=== PATIENT | female | born 1950 | race Caucasian/White ===

== ENCOUNTER 2016-10-05 14:30 | Inpatient (IN) | payer MEDICARE, BC ==
[2016-10-05] MEDS ORDERED: NITROGLYCERIN OINT 1 INCH/GM PACKET TOPICAL STA (14:37)
--- NOTE | 2016-10-05 14:40 | ED ---
General Adult HPI - General Stated complaint: chest pain Time Seen by Provider: 10/05/16 14:30 Source: RN notes reviewed - History of Present Illness Initial comments: This is a 66-year-old female who presents to the emergency department from [facility]. According to because he also patient showed ST segment depression and then later on after given nitroglycerin showed ST segment elevation. Patient states she had chest pain earlier that radiates Into her arm and her neck and she was also short of breath at that time. Patient states she was given nitroglycerin the pain is completely resolved and at this time feels back to her baseline. Patient denies any palpitations. Patient denies any recent fever chills or cough. Patient denies any abdominal pain patient denies nausea vomiting diarrhea. Patient denies headache patient denies numbness weakness. Patient denies any lightheadedness dizziness or near syncopal episode. - Related Data Home Medications Medication Instructions Recorded Confirmed Aspirin 81 mg PO HS 02/14/16 07/16/16 Ibuprofen/Diphenhydramine HCl 2 cap PO HS PRN 02/14/16 07/16/16 [Advil Pm Liqui-Gels] Levothyroxine Sodium [Synthroid] 50 mcg PO HS 02/14/16 07/16/16 Losartan-Hctz 50-12.5 mg [Hyzaar 1 tab PO HS 02/14/16 07/16/16 50-12.5] Metoprolol Succinate [Toprol XL] 50 mg PO HS 02/14/16 07/16/16 Omeprazole 20 mg PO HS 02/14/16 07/16/16 Allergies Allergy/AdvReac Type Severity Reaction Status Date / Time No Known Allergies Allergy Verified 07/16/16 13:59 Review of Systems ROS Statement: Those systems with pertinent positive or pertinent negative responses have been documented in the HPI. ROS Other: All systems not noted in ROS Statement are negative. Past Medical History Past Medical History: GERD/Reflux, Hypertension, Thyroid Disorder Additional Past Medical History / Comment(s): Breast cancer status post bilateral mastectomy and radiation. BRCA gene positive History of Any Multi-Drug Resistant Organisms: None Reported Past Surgical History: Appendectomy, Cholecystectomy, Hysterectomy Additional Past Surgical History / Comment(s): Bone marrow transplant 1994, lanie mstectomy Past Psychological History: No Psychological Hx Reported Smoking Status: Never smoker Past Alcohol Use History: None Reported Past Drug Use History: None Reported - Past Family History Mother Family Medical History: Diabetes Mellitus Father Family Medical History: Cancer Additional Family Medical History / Comment(s): lung cancer Sister(s) Family Medical History: Cancer Additional Family Medical History / Comment(s): breast cancer General Exam - General Exam Comments Initial Comments: GENERAL: Patient is well-developed and well-nourished. Patient is nontoxic and well- hydrated and is in no acute distress. ENT: Neck is soft and supple. No significant lymphadenopathy is noted. Oropharynx is clear. Moist mucous membranes. Neck has full range of motion without eliciting any pain. EYES: The sclera were anicteric and conjunctiva were pink and moist. Extraocular movements were intact and pupils were equal round and reactive to light. Eyelids were unremarkable. PULMONARY: Unlabored respirations. Good breath sounds bilaterally. No audible rales rhonchi or wheezing was noted. CARDIOVASCULAR: There is a regular rate and rhythm without any murmurs gallops or rubs. ABDOMEN: Soft and nontender with normal bowel sounds. No palpable organomegaly was noted. There is no palpable pulsatile mass. SKIN: Skin is clear with no lesions or rashes and otherwise unremarkable. NEUROLOGIC: Patient is alert and oriented x3. Cranial nerves II through XII are grossly intact. Motor and sensory are also intact. Normal speech, volume and content. Symmetrical smile. MUSCULOSKELETAL: Normal extremities with adequate strength and full range of motion. LYMPHATICS: No significant lymphadenopathy is noted PSYCHIATRIC: Normal psychiatric evaluation. Course Vital Signs 10/05/16 10/05/16 10/05/16 14:35 15:16 15:57 Temperature 97.9 F Pulse Rate 106 H 105 H 107 H Respiratory 18 18 18 Rate Blood Pressure 129/64 119/68 141/89 O2 Sat by Pulse 96 98 97 Oximetry 10/05/16 10/05/16 16:13 16:22 Temperature Pulse Rate 109 H 109 H Respiratory Rate Blood Pressure O2 Sat by Pulse Oximetry Medical Decision Making - Medical Decision Making EKG shows sinus tachycardia at 104 bpm ND interval 106 QRS 146 QT interval 400 QTC is 526 patient's EKG shows a left bundle branch block compared this EKG to an old EKG and I see no acute abnormalities. I review the old chest x-ray was normal. I spoke to Dr. Squires when the patient arrived and he can consult the patient in the emergency department. Second troponin came back elevated compared to the first I spoke with Dr. Squires about this at this time he was satisfied to keep the patient on heparin and admitting the patient to the floor and following troponins. I spoke with Dr. Oates he agreed to admit the patient admitted the patient I consult cardiology I continued the heparin and nitro paste on the floor. - Lab Data Result diagrams: 10/05/16 15:39 10/05/16 15:39 Lab Results 10/05/16 10/05/16 10/05/16 Range/Units 15:39 15:39 15:39 WBC 10.9 H (3.8-10.6) k/uL RBC 4.31 (3.80-5.40) m/uL Hgb 13.1 (11.4-16.0) gm/dL Hct 40.3 (34.0-46.0) % MCV 93.7 (80.0-100.0) fL MCH 30.5 (25.0-35.0) pg MCHC 32.5 (31.0-37.0) g/dL RDW 13.8 (11.5-15.5) % Plt Count 207 (150-450) k/uL Neutrophils % 88 % Lymphocytes % 6 % Monocytes % 5 % Eosinophils % 0 % Basophils % 0 % Neutrophils # 9.7 H (1.3-7.7) k/uL Lymphocytes # 0.6 L (1.0-4.8) k/uL Monocytes # 0.5 (0-1.0) k/uL Eosinophils # 0.0 (0-0.7) k/uL Basophils # 0.0 (0-0.2) k/uL PT 11.2 (9.0-12.0) sec INR 1.1 (<1.1) APTT 49.5 H (22.0-30.0) sec Sodium 145 (137-145) mmol/L Potassium 3.6 (3.5-5.1) mmol/L Chloride 103 (98-107) mmol/L Carbon Dioxide 28 (22-30) mmol/L Anion Gap 14 mmol/L BUN 15 (7-17) mg/dL Creatinine 0.96 (0.52-1.04) mg/dL Est GFR (MDRD) Af Amer >60 (>60 ml/min/1.73 sqM) Est GFR (MDRD) Non-Af 58 (>60 ml/min/1.73 sqM) Glucose 130 H (74-99) mg/dL Calcium 9.3 (8.4-10.2) mg/dL Magnesium 1.8 (1.6-2.3) mg/dL Total Bilirubin 0.8 (0.2-1.3) mg/dL AST 30 (14-36) U/L ALT 40 (9-52) U/L Alkaline Phosphatase 74 (38-126) U/L Total Creatine Kinase (30-135) U/L CK-MB (CK-2) (0.0-2.4) ng/mL CK-MB (CK-2) Rel Index Troponin I (0.000-0.034) ng/mL Total Protein 6.7 (6.3-8.2) g/dL Albumin 3.8 (3.5-5.0) g/dL 10/05/16 Range/Units 15:39 WBC (3.8-10.6) k/uL RBC (3.80-5.40) m/uL Hgb (11.4-16.0) gm/dL Hct (34.0-46.0) % MCV (80.0-100.0) fL MCH (25.0-35.0) pg MCHC (31.0-37.0) g/dL RDW (11.5-15.5) % Plt Count (150-450) k/uL Neutrophils % % Lymphocytes % % Monocytes % % Eosinophils % % Basophils % % Neutrophils # (1.3-7.7) k/uL Lymphocytes # (1.0-4.8) k/uL Monocytes # (0-1.0) k/uL Eosinophils # (0-0.7) k/uL Basophils # (0-0.2) k/uL PT (9.0-12.0) sec INR (<1.1) APTT (22.0-30.0) sec Sodium (137-145) mmol/L Potassium (3.5-5.1) mmol/L Chloride (98-107) mmol/L Carbon Dioxide (22-30) mmol/L Anion Gap mmol/L BUN (7-17) mg/dL Creatinine (0.52-1.04) mg/dL Est GFR (MDRD) Af Amer (>60 ml/min/1.73 sqM) Est GFR (MDRD) Non-Af (>60 ml/min/1.73 sqM) Glucose (74-99) mg/dL Calcium (8.4-10.2) mg/dL Magnesium (1.6-2.3) mg/dL Total Bilirubin (0.2-1.3) mg/dL AST (14-36) U/L ALT (9-52) U/L Alkaline Phosphatase (38-126) U/L Total Creatine Kinase 89 (30-135) U/L CK-MB (CK-2) 5.8 H* (0.0-2.4) ng/mL CK-MB (CK-2) Rel Index 6.5 Troponin I 0.445 H* (0.000-0.034) ng/mL Total Protein (6.3-8.2) g/dL Albumin (3.5-5.0) g/dL Critical Care Time Critical Care Time: Yes Total Critical Care Time: 35 Disposition Clinical Impression: Acute non-ST segment elevation myocardial infarction (STEMI) following previous myocardial infarction Disposition: ADMITTED IP TO THIS HOSP Referrals: Tamika Arechiga MD [Primary Care Provider] - 1-2 days Time of Disposition: 16:44
[2016-10-05 15:53] LABS: Basophils % (A) 0 %; CHCM 33.2; Eosinophils % (A) 0 %; HCT 40.3 % (34.0-46.0); HGB 13.1 gm/dL (11.4-16.0); Luc # (Auto) 0.07; Luc % (Auto) 1; Lymphocytes # (A) 0.6 k/uL (1.0-4.8); Lymphocytes % (A) 6 %; MCH 30.5 pg (25.0-35.0); MCHC 32.5 g/dL (31.0-37.0); MCV 93.7 fL (80.0-100.0); Mean Platelet Volume 7.9; Monocytes # (A) 0.5 k/uL (0-1.0); Monocytes % (A) 5 %; Neutrophils # (A) 9.7 k/uL (1.3-7.7); Neutrophils % (A) 88 %; RBC 4.31 m/uL (3.80-5.40); RDW 13.8 % (11.5-15.5); WBC 10.9 k/uL (3.8-10.6); WBC (Perox) 11.85
[2016-10-05 15:58] LABS: INR 1.1 (<1.1); Partial Thromboplastin Time 49.5 sec (22.0-30.0); Prothrombin Time 11.2 sec (9.0-12.0)
[2016-10-05] MEDS ORDERED: ALBUTEROL NEBULIZED 2.5 MG/3 ML INHALATION STA (15:58)
[2016-10-05 16:06] LABS: AST 30 U/L (14-36); Blood Urea Nitrogen 15 mg/dL (7-17); Carbon Dioxide 28 mmol/L (22-30); Chloride 103 mmol/L (98-107); Glucose 130 mg/dL (74-99); Non-African American GFR(MDRD) 58 (>60 ml/min/1.73 sqM); Total Bilirubin 0.8 mg/dL (0.2-1.3); Total Protein 6.7 g/dL (6.3-8.2)
--- NOTE | 2016-10-05 16:06 | P.CRDCN ---
History of Present Illness Consult date: 10/05/16 History of present illness: This is a 66-year-old female with history of hypertension and GERD syndrome who went to [facility] with complaints of left shoulder and arm pain. Patient also has history of breast cancer status post bilateral mastectomy and also radiation therapy. Her EKG in the emergency room showed evidence of left bundle-branch block pattern. The pain was sharp and radiated to the neck. Patient could not get comfortable by moving the shoulder or the neck. Patient was treated with sublingual nitroglycerin with relief of pain. By the time she came to [facility] the pains are mostly resolved. Her EKG continues to show left bundle branch block pattern. At this point we have decided to continue the maximum medical therapy and follow Cardec enzymes studies and get an echo [place] tomorrow. Patient had a cardiac catheterization the past which did not reveal any significant obstructive disease. Further comminution depend upon the clinical course. Review of Systems REVIEW OF SYSTEMS: CONSTITUTIONAL:. Patient is doing well. No complaints of fever or chills EYES: Denies diplopia, blurring of vision EARS, NOSE, MOUTH, THROAT: Denies headaches, denies sore throat. CARDIOVASCULAR: As per the chart RESPIRATORY: Denies shortness of breath, denies cough. GASTROINTESTINAL: History of GERD syndrome GENITOURINARY: Denies hematuria, denies infections. MUSKULOSKELETAL: Denies pain, denies swelling. Denies any cramps or claudication INTEGUMENTARY: Denies rash, denies eczema. NEUROLOGICAL: Denies focal weakness, or visual disturbance. Denies any dizziness or syncope PSYCHIATRIC: Denies anxiety, denies depression. HEMATOLOGIC/LYMPHATIC: Denies any bleeding, denies enlarged lymph nodes. Past Medical History Past Medical History: GERD/Reflux, Hypertension, Thyroid Disorder Additional Past Medical History / Comment(s): Breast cancer status post bilateral mastectomy and radiation. BRCA gene positive History of Any Multi-Drug Resistant Organisms: None Reported Past Surgical History: Appendectomy, Cholecystectomy, Hysterectomy Additional Past Surgical History / Comment(s): Bone marrow transplant 1994, lanie mstectomy Past Psychological History: No Psychological Hx Reported Smoking Status: Never smoker Past Alcohol Use History: None Reported Past Drug Use History: None Reported - Past Family History Mother Family Medical History: Diabetes Mellitus Father Family Medical History: Cancer Additional Family Medical History / Comment(s): lung cancer Sister(s) Family Medical History: Cancer Additional Family Medical History / Comment(s): breast cancer Medications and Allergies Home Medications Medication Instructions Recorded Confirmed Type Aspirin 81 mg PO HS 02/14/16 07/16/16 History Ibuprofen/Diphenhydramine HCl 2 cap PO HS PRN 02/14/16 07/16/16 History [Advil Pm Liqui-Gels] Levothyroxine Sodium [Synthroid] 50 mcg PO HS 02/14/16 07/16/16 History Losartan-Hctz 50-12.5 mg [Hyzaar 1 tab PO HS 02/14/16 07/16/16 History 50-12.5] Metoprolol Succinate [Toprol XL] 50 mg PO HS 02/14/16 07/16/16 History Omeprazole 20 mg PO HS 02/14/16 07/16/16 History Allergies Allergy/AdvReac Type Severity Reaction Status Date / Time No Known Allergies Allergy Verified 07/16/16 13:59 Physical Exam Vitals: Vital Signs Temp Pulse Resp BP Pulse Ox 10/05/16 15:16 105 H 18 119/68 98 10/05/16 14:35 97.9 F 106 H 18 129/64 96 Intake and Output 10/05/16 10/05/16 10/05/16 06:59 14:59 22:59 Other: Weight 77.111 kg Patient Weight 10/06/16 06:59 Weight 77.111 kg GENERAL EXAM: Patient is alert and oriented and doesn't appear to be in any acute distress HEENT: Normocephalic. Normal reaction of pupils, equal size, normal range of extraocular motion. No erythema or exudates in the throat. NECK: No masses, no nuchal rigidity. CHEST: No chest wall deformity. LUNGS: Equal air entry with no crackles or wheeze. HEART: S1 and S2 normal with no audible mumurs or gallops. Regular rhythm, femorals equal on both sides.. ABDOMEN: No hepatosplenomegaly, normal bowel sounds, no guarding or rigidity. SKIN: No rashes CENTRAL NERVOUS SYSTEM: No focal deficits. EXTREMITIES: No cyanosis, clubbing or edema. Results 10/05/16 15:39 Coagulation 10/05/16 Range/Units 15:39 PT 11.2 (9.0-12.0) sec APTT 49.5 H (22.0-30.0) sec CBC 10/05/16 Range/Units 15:39 WBC 10.9 H (3.8-10.6) k/uL RBC 4.31 (3.80-5.40) m/uL Hgb 13.1 (11.4-16.0) gm/dL Hct 40.3 (34.0-46.0) % Plt Count 207 (150-450) k/uL Intake and Output 10/05/16 10/05/16 10/05/16 06:59 14:59 22:59 Other: Weight 77.111 kg Patient Weight 10/06/16 06:59 Weight 77.111 kg 10/05/16 15:39 EKG Interpretations (text) Showed sinus rhythm with a left bundle-branch block Assessment and Plan (1) Chest pain Status: Acute (2) Left bundle branch block Status: Acute (3) History of breast cancer Status: Acute (4) GERD (gastroesophageal reflux disease) Status: Acute (5) Hypertension Status: Acute Plan: At the time of my examination patient is completely pain free. Her EKG shows left bundle branch block. We'll continue to monitor cardiac enzymes. We'll obtain echo cardiogram tomorrow. Further recommend addition depend upon the clinical course.
[2016-10-05 16:20] LABS: ALT 40 U/L (9-52); Alkaline Phosphatase 74 U/L (38-126); Anion Gap 14 mmol/L; Calcium 9.3 mg/dL (8.4-10.2); Magnesium 1.8 mg/dL (1.6-2.3); Potassium 3.6 mmol/L (3.5-5.1); Sodium 145 mmol/L (137-145)
[2016-10-05 16:23] LABS: Creatine Kinase MB 5.8 ng/mL (0.0-2.4); Troponin I 0.445 ng/mL (0.000-0.034)
[2016-10-05] MEDS ORDERED: NITROGLYCERIN SL TABS 0.4 MG TAB SUBLINGUAL PRN (16:45)
[2016-10-05] MEDS ORDERED: HEPARIN SODIUM,PORCINE/D5W PMX 25,000 UNIT in DEXTROSE/WATER 1 500ML.BAG IV SCH (17:00)
[2016-10-05 21:38] LABS: Creatine Kinase MB 25.9 ng/mL (0.0-2.4)
[2016-10-05 21:39] LABS: Troponin I 1.57 ng/mL (0.000-0.034)
[2016-10-06] MEDS ORDERED: SYMBICORT 160-4.5 MCG INHALER INHALATION PRN (00:52)
[2016-10-06] MEDS: LOSARTAN-HCTZ 50-12.5 MG 1 EACH TAB PO SCH ×2 (01:56→22:03)
[2016-10-06] MEDS: PANTOPRAZOLE 40 MG TABLET PO SCH ×2 (01:56→22:03)
[2016-10-06] MEDS: METOPROLOL SUCCINATE (ER) 50 MG TAB.ER.24H PO SCH ×2 (01:56→22:03)
[2016-10-06] MEDS: LEVOTHYROXINE 50 MCG TAB PO SCH ×2 (01:57→22:03)
[2016-10-06 04:51] LABS: Cholesterol 183 mg/dL (<200); HDL Cholesterol 45 mg/dL (40-60); Triglycerides 112 mg/dL (<150)
[2016-10-06 05:50] LABS: Creatine Kinase MB 31.6 ng/mL (0.0-2.4); Troponin I 4.26 ng/mL (0.000-0.034)
[2016-10-06] MEDS ORDERED: NITROGLYCERIN SL TABS 0.4 MG TAB SUBLINGUAL PRN (07:12)
[2016-10-06] MEDS ORDERED: ATORVASTATIN 80 MG TAB PO STA (07:12)
[2016-10-06] MEDS ORDERED: ALPRAZolam 0.25 MG TAB PO PRN (07:12)
[2016-10-06] MEDS ORDERED: SODIUM CHLORIDE 0.9% 1,000 ML in EMPTY BAG 1 BAG IV ONE (07:12)
[2016-10-06] MEDS ORDERED: ALPRAZolam 0.5 MG TAB PO PRN (07:12)
--- NOTE | 2016-10-06 08:05 | ECHOF ---
Referral Reason:Chest pain and cardiomyopathy MEASUREMENTS -------- HEIGHT: 162.6 cm WEIGHT: 77.1 kg BP: 136/79 RVIDd: 2.6 cm (< 3.3) IVSd: 1.0 cm (0.6 - 1.1) LVIDd: 4.8 cm (3.9 - 5.3) LVPWd: 1.0 cm (0.6 - 1.1) IVSs: 1.2 cm LVIDs: 4.3 cm LVPWs: 1.4 cm LA Diam: 3.7 cm (2.7 - 3.8) LAESV Index (A-L): 26.97 ml/m Ao Diam: 3.0 cm (2.0 - 3.7) AV Cusp: 1.5 cm (1.5 - 2.6) MV EXCURSION: 17.007 mm (> 18.000) MV EF SLOPE: 100 mm/s (70 - 150) EPSS: 1.9 cm MV E Blaine: 1.44 m/s MV DecT: 125 ms MV A Blaine: 0.29 m/s MV E/A Ratio: 4.97 AV maxP.02 mmHg AV maxP.02 mmHg AV meanP.67 mmHg RAP: 5.00 mmHg RVSP: 44.77 mmHg FINDINGS -------- This was a technically good study. The left ventricular size is normal. Left ventricular wall thickness is normal. Overall left ventricular systolic function is severely impaired with, an EF < 20%. SEVERE lv DYSFUNCTION, WITH MILDLY CONTRACTILE BASAL AKINS, REST SEVERELY HYPO/AKINETIC The right ventricle is normal in size and function. The left atrium is normal in size. Normal LA size by volume 22+/-6 ml/m2. The right atrium is normal in size. There is mild aortic valve sclerosis. There is mild aortic regurgitation. There is mild aortic stenosis present. Peak/mean gradient across the Aortic Valve is 21.02mmHg / 11.67mmHg. The mitral valve leaflets are mildly thickened. Mild mitral annular calcification present. Mild mitral regurgitation is present. Mild tricuspid regurgitation present. There is mild pulmonary hypertension. The right ventricular systolic pressure, as measured by Doppler, is 44.77mmHg. Trace/mild (physiologic) pulmonic regurgitation. The aortic root size is normal. There is no pericardial effusion. CONCLUSIONS -------- 1. This was a technically good study. 2. There is mild aortic stenosis present. 3. Peak/mean gradient across the Aortic Valve is 21.02mmHg / 11.67mmHg. 4. The mitral valve leaflets are mildly thickened. 5. Mild mitral annular calcification present. 6. Mild mitral regurgitation is present. 7. Mild tricuspid regurgitation present. 8. There is mild pulmonary hypertension. 9. The right ventricular systolic pressure, as measured by Doppler, is 44.77mmHg. 10. Trace/mild (physiologic) pulmonic regurgitation. 11. The aortic root size is normal. 12. The left ventricular size is normal. 13. There is no pericardial effusion. 14. Left ventricular wall thickness is normal. 15. Overall left ventricular systolic function is severely impaired with, an EF < 20%. 16. The right ventricle is normal in size and function. 17. Normal LA size by volume 22+/-6 ml/m2. 18. The right atrium is normal in size. 19. There is mild aortic valve sclerosis. 20. There is mild aortic regurgitation. [employer]OUNDR[employer] WORKER APPRENTICE: Janiya Crawford RDCS
[2016-10-06] MEDS: ASPIRIN 325 MG TAB PO SCH (08:22)
[2016-10-06] MEDS: SYMBICORT 160-4.5 MCG INHALER INHALATION SCH ×2 (08:49→21:52)
[2016-10-06] MEDS ORDERED: IV FLUID CONTINUATION 1,000 ML IV ONE (13:28)
[2016-10-06] MEDS ORDERED: fentaNYL (PF) 50 MCG/ML 2 ML AMP ONE (13:33)
[2016-10-06] MEDS ORDERED: LIDOCAINE 2% INJ 20 MG/ML (20 ML MDV) ONE ×2 (13:33→13:48)
[2016-10-06] MEDS ORDERED: diphenhydrAMINE 50 MG/ML 1 ML VIAL ONE (13:33)
[2016-10-06] MEDS ORDERED: LIDOCAINE 2% INJ 20 MG/ML SQ ONE (14:04)
[2016-10-06] MEDS ORDERED: diphenhydrAMINE 50 MG/ML 1 ML VIAL IVP ONE (14:06)
[2016-10-06] MEDS ORDERED: fentaNYL (PF) 50 MCG/ML 2 ML AMP IV ONE (14:06)
--- NOTE | 2016-10-06 14:18 | HP ---
DATE OF ADMISSION: 10/05/2016 CHIEF COMPLAINT: Chest pain. HISTORY OF PRESENT ILLNESS: This 66-year-old woman with a past medical history of multiple medical problems, including history of asthma, GERD, hypertension, history of hypothyroidism, breast cancer, appendectomy, cholecystectomy, being followed by Dr. Arechiga in the outpatient setting was sent from [facility]. The patient had a chest pain in the anterior part of the chest, which radiated to the arm and neck and the patient also had shortness of breath at that time. The EKG showed ST-T changes. Left bundle branch block was also noted in the EKG done from [facility]. The subsequent EKG also showed a left bundle branch block pattern and the patient was transferred to [facility] through the emergency room and admitted for further evaluation and treatment. There is no history of fever, rigors. No history of headache, loss of consciousness, seizures. Troponin was found to be 0.445 and 1.5 subsequently indicating acute non-ST segment elevation myocardial infarction. PAST MEDICAL HISTORY: History of asthma, gastroesophageal reflux disease, hypertension, hypothyroidism, history of breast cancer, appendectomy, cholecystectomy. MEDICATIONS PRIOR TO ADMISSION: 1. Prednisone daily. 2. Omeprazole 20 mg q.h.s. 3. Metoprolol XL 50 mg q.h.s. 4. Losartan 1 tablet p.o. q.h.s. 5. Synthroid 50 mcg p.o. daily. 7. Symbicort 160/4.5, 2 puffs b.i.d. 8. Ecotrin 81 mg daily. ALLERGIES: None. FAMILY HISTORY: History of diabetes mellitus and heart valve replacements. SOCIAL HISTORY: No history of smoking. No history of alcohol intake. REVIEW OF SYSTEMS: ENT: No diminished hearing or diminished vision. CARDIOVASCULAR: As mentioned earlier. RESPIRATORY: As mentioned earlier. GI: As mentioned earlier. : No dysuria. NERVOUS SYSTEM: No numbness or weakness. ALLERGY/IMMUNOLOGY: No asthma. MUSCULOSKELETAL: As mentioned earlier. HEMATOLOGY/ONCOLOGY: No history of anemia. ENDOCRINE: No history of diabetes. CONSTITUTIONAL: As mentioned earlier. DERMATOLOGY: Negative. RHEUMATOLOGY: Negative. PSYCHIATRY: As mentioned earlier. PHYSICAL EXAMINATION: Alert and oriented x3. Pulse is 113, blood pressure 125/77, respirations 18, temperature 97 degrees, pulse ox 94% on room air. HEENT: Conjunctivae normal. NECK: No jugular venous distention. CARDIOVASCULAR: S1 and S2, muffled. RESPIRATORY: Breath sounds diminished at the bases. No rhonchi, no crackles. ABDOMEN: Soft, obese, nontender, no mass palpable. LEGS: No edema, no swelling. NERVOUS SYSTEM: Higher function as mentioned. Moves all four limbs. No focal motor deficits. LYMPHATIC: No lymphadenopathy in the neck, axillae or groin. SKIN: No ulcer, rash or bleeding. LABS: WBC 10.9 and glucose 130. ASSESSMENT: 1. Chest pain, possible acute non-ST elevation myocardial infarction. 2. Troponin 1.57. 3. Left bundle branch block in the EKG. 4. Increased random blood sugar. 5. Increased WBC, possibly reactive. 6. Asthma. 7. Gastroesophageal reflux disease. 8. Hypertension. 9. Hypothyroidism. 10. History of breast cancer. 11. History of right lung nodule. 12. History of cholecystectomy. 13. History of bone marrow transplant 1994. RECOMMENDATIONS AND DISCUSSION: In this 66-year-old woman who presented with multiple complex medical issues, will monitor the patient closely. Continue the current medications and symptomatic treatment. Otherwise will closely monitor the patient along with Cardiology and unstable angina protocol. Beta blockers and antiplatelet agents, possible cardiac catheterization. Guarded prognosis because of multiple complex medical issues. Further recommendations to follow. A copy of dictation forwarded to Dr. Arechiga who is the primary physician. HEATHER
[2016-10-06] MEDS ORDERED: IOHEXOL 350 MG/ML 100 ML BOTTLE INTRATHECA ONE (14:21)
[2016-10-06] MEDS ORDERED: FUROSEMIDE 10 MG/ML 4 ML VIAL ONE (14:23)
[2016-10-06] MEDS ORDERED: FUROSEMIDE 10 MG/ML 4 ML VIAL IV ONE (14:27)
[2016-10-06] MEDS ORDERED: RX INFO: IV CONTRAST WAS GIVEN 1 EACH MISC MISCELLANE PRN (14:32)
[2016-10-06] MEDS ORDERED: HEPARIN SODIUM,PORCINE 5,000 UNIT/ML 1 ML VIAL IV PRN (14:36)
[2016-10-06] MEDS ORDERED: SODIUM CHLORIDE 0.9% 1,000 ML IV SCH (14:45)
--- NOTE | 2016-10-06 15:37 | P.CNPUL ---
History of Present Illness Consult date: 10/06/16 Requesting physician: Lito Oates Reason for consult: dyspnea Chief complaint: Chest pain History of present illness: This is a very pleasant 66-year-old female patient who follows with Dr. Arechiga as her primary care physician. She has a history of metastatic breast cancer, status post bilateral mastectomy/radiation and previous stem cell transplant. She also has a history of gastroesophageal reflux disease, chronic cough related to radiation pneumonitis, history of BRCA gene positive, bilateral oophorectomy, history of lymphoma. She also had a small left upper lobe nodule in the status post wedge resection. She is a lifelong nonsmoker. He presented here on 10/05/2016 as a transfer from [facility] for myocardial infarction. She'd undergone cardiac catheterization today and is found to have severe coronary artery disease and the plan is for coronary artery bypass grafting. She is a severely impaired left ventricular systolic function with estimated ejection fraction less than 20%. She is seen in consultation today postprocedure resting fairly comfortably in bed. She denies any further chest discomfort. She remains on heparin drip. She denies any palpitations lightheadedness or dizziness. No shortness of breath, cough or congestion. Review of Systems 14 point review of system was conducted. All been negative other than as mentioned in HPI. Past Medical History Past Medical History: Asthma, GERD/Reflux, Hypertension, Thyroid Disorder Additional Past Medical History / Comment(s): Breast cancer status post bilateral mastectomy and radiation, rt lung nodule(cancerous/was removed). BRCA gene positive History of Any Multi-Drug Resistant Organisms: None Reported Past Surgical History: Appendectomy, Cholecystectomy, Hysterectomy Additional Past Surgical History / Comment(s): Bone marrow transplant 1994, lanie mstectomy/radiation. 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 Smoking Status: Never smoker Past Alcohol Use History: None Reported Past Drug Use History: None Reported - Past Family History Mother Family Medical History: Diabetes Mellitus Additional Family Medical History / Comment(s): heart valve replacment Father Family Medical History: Cancer Additional Family Medical History / Comment(s): lung cancer Sister(s) Family Medical History: Cancer Additional Family Medical History / Comment(s): breast cancer Medications and Allergies Home Medications Medication Instructions Recorded Confirmed Type Ibuprofen/Diphenhydramine HCl 1 cap PO HS 02/14/16 10/05/16 History [Advil Pm Liqui-Gels] Levothyroxine Sodium [Synthroid] 50 mcg PO HS 02/14/16 10/05/16 History Losartan-Hctz 50-12.5 mg [Hyzaar 1 tab PO HS 02/14/16 10/05/16 History 50-12.5] Metoprolol Succinate [Toprol XL] 50 mg PO HS 02/14/16 10/05/16 History Omeprazole 20 mg PO HS 02/14/16 10/05/16 History Aspirin EC [Ecotrin Low Dose] 81 mg PO HS 10/05/16 10/05/16 History Budesonide/Formoterol Fumarate 2 puff INHALATION RT-BID PRN 10/05/16 10/05/16 History [Symbicort 160-4.5 Mcg Inhaler] predniSONE See Taper PO DAILY 10/05/16 10/05/16 History Allergies Allergy/AdvReac Type Severity Reaction Status Date / Time No Known Allergies Allergy Verified 10/05/16 17:19 Physical Exam Vitals: Vital Signs Temp Pulse Pulse Resp BP BP Pulse Ox 10/06/16 15:03 20 93/52 10/06/16 14:48 97.5 F L 20 100/57 93 L 10/06/16 11:13 100 18 109/55 100 10/06/16 08:00 97.1 F L 108 H 18 120/70 95 10/06/16 07:12 97.1 F L 108 H 18 120/70 95 10/06/16 04:00 97.7 F 96 18 102/60 94 L 10/06/16 00:15 97.3 F L 98 18 108/55 96 10/05/16 20:50 97.7 F 103 H 18 106/57 92 L 10/05/16 18:10 97.0 F L 113 H 18 125/77 95 10/05/16 18:01 95 10/05/16 17:36 97.5 F L 107 H 18 146/67 98 10/05/16 16:48 107 H 18 137/61 95 Intake and Output 10/06/16 10/06/16 10/06/16 06:59 14:59 22:59 Intake Total 0 250.367 Output Total 200 200 Balance -200 50.367 Intake: Intake, IV Titration 250.367 Amount Heparin Sodium,Porcine/ 250.367 D5w Pmx 25,000 unit In Dextrose/Water 1 500ml. bag @ 12 UNITS/KG/HR 18.5 mls/hr IV .Q24H [facility] Rx#: [id number] Oral 0 Output: Urine 200 200 Other: Voiding Method Toilet Weight 79 kg GENERAL EXAM: Alert, comfortable in no apparent distress. HEAD: Normocephalic. EYES: Normal reaction of pupils, equal size. NOSE: Clear with pink turbinates. THROAT: No erythema or exudates. NECK: No masses, no JVD. CHEST: No chest wall deformity. LUNGS: Equal air entry with no crackles, wheeze, rhonchi or dullness. CVS: S1 and S2 normal with no audible murmurs, regular rhythm. ABDOMEN: No hepatosplenomegaly, normal bowel sounds, no guarding or rigidity. SPINE: No scoliosis or deformity SKIN: No rashes CENTRAL NERVOUS SYSTEM: No focal deficits, tone is normal in all 4 extremities. Extremities: There is trace peripheral edema. No clubbing, no cyanosis. Peripheral pulses are intact. Results - Laboratory Findings CBC and BMP: 10/05/16 15:39 10/05/16 15:39 PT/INR, D-dimer PT 11.2 sec (9.0-12.0) 10/05/16 15:39 INR 1.1 (<1.1) 10/05/16 15:39 Abnormal lab findings: Abnormal Labs 10/05/16 10/06/16 10/06/16 20:27 04:10 04:10 APTT Total Creatine Kinase 245 H 309 H CK-MB (CK-2) 25.9 H* 31.6 H* Troponin I 1.570 H* 4.260 H* LDL Cholesterol, Calc 116 H 10/06/16 04:19 APTT 31.4 H Total Creatine Kinase CK-MB (CK-2) Troponin I LDL Cholesterol, Calc Assessment and Plan Plan: Impression: #1 Chest pain in a patient found to have significant coronary artery disease on cardiac catheterization performed today. The plan is for coronary artery bypass grafting. #2 Severe ischemic cardiomyopathy with estimated ejection fraction less than 20% . #3 Left bundle branch block pattern on EKG. #4 History of breast cancer status post bilateral mastectomy/radiation, BRCA gene positive. #5 Chronic cough secondary to radiation pneumonitis. #6 Stem cell transplant in 1994. #7 Hypothyroidism. #8 Hypertension. #9 Gastroesophageal reflux disease. Plan: The patient was seen and evaluated by Dr. Arechiga. We will optimize her medications and educate her regarding the use of the incentive spirometer and cough and deep breathing exercises. We will perform a bedside spirometry to evaluate her present lung function. Continue to follow her in the postoperative setting. Time with Patient: Greater than 30
[2016-10-06 15:38] LABS: Basophils # (A) 0.1 k/uL (0-0.2); Basophils % (A) 1 %; CH 31.2; Eosinophils # (A) 0.1 k/uL (0-0.7); Eosinophils % (A) 1 %; HCT 37.9 % (34.0-46.0); HDW 2.97; HGB 12.2 gm/dL (11.4-16.0); Luc # (Auto) 0.15; Luc % (Auto) 2; Lymphocytes # (A) 1.1 k/uL (1.0-4.8); Lymphocytes % (A) 13 %; MCH 30.6 pg (25.0-35.0); MCHC 32.3 g/dL (31.0-37.0); MCV 94.9 fL (80.0-100.0); Mean Platelet Volume 7.7; Monocytes # (A) 0.7 k/uL (0-1.0); Monocytes % (A) 8 %; Neutrophils # (A) 6.3 k/uL (1.3-7.7); Neutrophils % (A) 75 %; RBC 3.99 m/uL (3.80-5.40); RDW 13.8 % (11.5-15.5); WBC 8.4 k/uL (3.8-10.6); WBC (Perox) 8.76
[2016-10-06 15:51] LABS: INR 1.1 (<1.1); Partial Thromboplastin Time 22.4 sec (22.0-30.0); Prothrombin Time 10.9 sec (9.0-12.0)
[2016-10-06] MEDS: SPIRONOLACTONE 25 MG TAB PO SCH (16:15)
[2016-10-06] MEDS: FUROSEMIDE 20 MG TAB PO SCH (16:15)
[2016-10-06] MEDS: HEPARIN SODIUM,PORCINE/D5W PMX 25,000 UNIT in DEXTROSE/WATER 1 500ML.BAG IV SCH (16:52)
[2016-10-06] MEDS: NITROGLYCERIN OINT 1 INCH/GM PACKET TOPICAL SCH (16:53)
[2016-10-06 18:29] LABS: Basophils % (A) 0 %; CH 30.3; CHCM 32.5; Eosinophils # (A) 0.1 k/uL (0-0.7); Eosinophils % (A) 1 %; HDW 3.01; HGB 12.8 gm/dL (11.4-16.0); Luc # (Auto) 0.18; Luc % (Auto) 2; Lymphocytes # (A) 1.4 k/uL (1.0-4.8); Lymphocytes % (A) 14 %; MCH 30.7 pg (25.0-35.0); MCHC 32.8 g/dL (31.0-37.0); MCV 93.6 fL (80.0-100.0); Mean Platelet Volume 7.4; Monocytes # (A) 0.7 k/uL (0-1.0); Monocytes % (A) 7 %; Neutrophils # (A) 7.5 k/uL (1.3-7.7); Neutrophils % (A) 76 %; RBC 4.17 m/uL (3.80-5.40); RDW 13.8 % (11.5-15.5); WBC 9.9 k/uL (3.8-10.6); WBC (Perox) 9.76
[2016-10-06 18:37] LABS: ALT 47 U/L (9-52); AST 90 U/L (14-36); Alkaline Phosphatase 61 U/L (38-126); Anion Gap 12 mmol/L; Blood Urea Nitrogen 15 mg/dL (7-17); Carbon Dioxide 31 mmol/L (22-30); Chloride 99 mmol/L (98-107); Glucose 126 mg/dL (74-99); Magnesium 1.6 mg/dL (1.6-2.3); Non-African American GFR(MDRD) 59 (>60 ml/min/1.73 sqM); Potassium 3.3 mmol/L (3.5-5.1); Sodium 142 mmol/L (137-145); Total Protein 6.6 g/dL (6.3-8.2)
[2016-10-06] MEDS ORDERED: MD COMMUNICATION TO PHARMACY 1 EACH MISC PO ONE ×2 (18:47)
--- NOTE | 2016-10-06 19:05 | P.GSCN ---
History of Present Illness Consult date: 10/06/16 History of present illness: The patient is a 66-year-old female with history of multiple medical problems include bilateral mastectomy status post radiation therapy to the chest, who presented to an outside hospital with left neck and left upper extremity pain. She was transferred to [facility] yesterday. Her troponin trended up so a cardiac catheterization was performed which revealed a tight proximal LAD stenosis. I was asked to evaluate her for coronary bypass surgery. At the time of my examination, the patient was pain free and resting comfortably in bed. Review of Systems All systems: negative - Respiratory Reports cough Past Medical History Past Medical History: Asthma, GERD/Reflux, Hypertension, Thyroid Disorder Additional Past Medical History / Comment(s): Breast cancer status post bilateral mastectomy and radiation, rt lung nodule(cancerous/was removed). BRCA gene positive History of Any Multi-Drug Resistant Organisms: None Reported Past Surgical History: Appendectomy, Cholecystectomy, Hysterectomy Additional Past Surgical History / Comment(s): Bone marrow transplant 1994, lanie mstectomy/radiation. 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 Smoking Status: Never smoker Past Alcohol Use History: None Reported Past Drug Use History: None Reported - Past Family History Mother Family Medical History: Diabetes Mellitus Additional Family Medical History / Comment(s): heart valve replacment Father Family Medical History: Cancer Additional Family Medical History / Comment(s): lung cancer Sister(s) Family Medical History: Cancer Additional Family Medical History / Comment(s): breast cancer Medications and Allergies Home Medications Medication Instructions Recorded Confirmed Type Ibuprofen/Diphenhydramine HCl 1 cap PO HS 02/14/16 10/05/16 History [Advil Pm Liqui-Gels] Levothyroxine Sodium [Synthroid] 50 mcg PO HS 02/14/16 10/05/16 History Losartan-Hctz 50-12.5 mg [Hyzaar 1 tab PO HS 02/14/16 10/05/16 History 50-12.5] Metoprolol Succinate [Toprol XL] 50 mg PO HS 02/14/16 10/05/16 History Omeprazole 20 mg PO HS 02/14/16 10/05/16 History Aspirin EC [Ecotrin Low Dose] 81 mg PO HS 10/05/16 10/05/16 History Budesonide/Formoterol Fumarate 2 puff INHALATION RT-BID PRN 10/05/16 10/05/16 History [Symbicort 160-4.5 Mcg Inhaler] predniSONE See Taper PO DAILY 10/05/16 10/05/16 History Allergies Allergy/AdvReac Type Severity Reaction Status Date / Time No Known Allergies Allergy Verified 10/05/16 17:19 Surgical - Exam Vital Signs Temp Pulse Resp BP Pulse Ox 97.9 F 106 H 18 129/64 96 10/05/16 14:35 10/05/16 14:35 10/05/16 14:35 10/05/16 14:35 10/05/16 14:35 - General well developed, no distress - Eyes PERRL - Respiratory clear to auscultation - Cardiovascular Rhythm: regular - Abdomen Abdomen: soft, non tender - Neurologic normal coordination, normal sensation - Musculoskeletal normal gait - Psychiatric oriented to time, oriented to person, oriented to place Results - Labs 10/06/16 18:03 10/06/16 18:03 Abnormal Lab Results - Last 24 Hours (Table) 10/05/16 10/06/16 10/06/16 Range/Units 20:27 04:10 04:10 APTT (22.0-30.0) sec Potassium (3.5-5.1) mmol/L Carbon Dioxide (22-30) mmol/L Glucose (74-99) mg/dL AST (14-36) U/L Total Creatine Kinase 245 H 309 H (30-135) U/L CK-MB (CK-2) 25.9 H* 31.6 H* (0.0-2.4) ng/mL Troponin I 1.570 H* 4.260 H* (0.000-0.034) ng/mL LDL Cholesterol, Calc 116 H (0-99) mg/dL 10/06/16 10/06/16 Range/Units 04:19 18:03 APTT 31.4 H (22.0-30.0) sec Potassium 3.3 L (3.5-5.1) mmol/L Carbon Dioxide 31 H (22-30) mmol/L Glucose 126 H (74-99) mg/dL AST 90 H (14-36) U/L Total Creatine Kinase (30-135) U/L CK-MB (CK-2) (0.0-2.4) ng/mL Troponin I (0.000-0.034) ng/mL LDL Cholesterol, Calc (0-99) mg/dL Diabetes panel 10/06/16 10/06/16 Range/Units 04:10 18:03 Sodium 142 (137-145) mmol/L Potassium 3.3 L (3.5-5.1) mmol/L Chloride 99 (98-107) mmol/L Carbon Dioxide 31 H (22-30) mmol/L BUN 15 (7-17) mg/dL Creatinine 0.95 (0.52-1.04) mg/dL Glucose 126 H (74-99) mg/dL Calcium 9.0 (8.4-10.2) mg/dL AST 90 H (14-36) U/L ALT 47 (9-52) U/L Alkaline Phosphatase 61 (38-126) U/L Total Protein 6.6 (6.3-8.2) g/dL Albumin 3.7 (3.5-5.0) g/dL Triglycerides 112 (<150) mg/dL HDL Cholesterol 45 (40-60) mg/dL Calcium panel 10/06/16 Range/Units 18:03 Calcium 9.0 (8.4-10.2) mg/dL Albumin 3.7 (3.5-5.0) g/dL Pituitary panel 10/06/16 Range/Units 18:03 Sodium 142 (137-145) mmol/L Potassium 3.3 L (3.5-5.1) mmol/L Chloride 99 (98-107) mmol/L Carbon Dioxide 31 H (22-30) mmol/L BUN 15 (7-17) mg/dL Creatinine 0.95 (0.52-1.04) mg/dL Glucose 126 H (74-99) mg/dL Calcium 9.0 (8.4-10.2) mg/dL Adrenal panel 10/06/16 Range/Units 18:03 Sodium 142 (137-145) mmol/L Potassium 3.3 L (3.5-5.1) mmol/L Chloride 99 (98-107) mmol/L Carbon Dioxide 31 H (22-30) mmol/L BUN 15 (7-17) mg/dL Creatinine 0.95 (0.52-1.04) mg/dL Glucose 126 H (74-99) mg/dL Calcium 9.0 (8.4-10.2) mg/dL Total Bilirubin 1.0 (0.2-1.3) mg/dL AST 90 H (14-36) U/L ALT 47 (9-52) U/L Alkaline Phosphatase 61 (38-126) U/L Total Protein 6.6 (6.3-8.2) g/dL Albumin 3.7 (3.5-5.0) g/dL Assessment and Plan (1) Acute non-ST segment elevation myocardial infarction (STEMI) following previous myocardial infarction Status: Acute Plan: The patient's cardiac catheterization was personally reviewed. He has a tight ostial left anterior descending artery lesion. The remainder of her coronary tree is free of obstructive disease. Her transthoracic echocardiogram reveals a depressed ejection fraction of less than 20%. A coronary artery bypass is recommended. The risks, benefits, and alternatives to this procedure were discussed with the patient. All questions were answered. She is currently receiving her preoperative workup. We will plan on performing this procedure first thing in the morning. Time with Patient: Greater than 30
[2016-10-06 19:07] LABS: Hepatitis B Surface Ag Index 0.05
[2016-10-06 19:12] LABS: Hepatitis B Core IgM Index 0.03
[2016-10-06 19:24] LABS: Hepatitis C Virus IgG Index 0.03
[2016-10-06 19:36] LABS: Hepatitis C Virus IgG Ab Negative (Negative)
--- NOTE | 2016-10-06 20:40 | US ---
EXAMINATION TYPE: US carotid duplex BILAT DATE OF EXAM: 10/06/2016 8:15 PM COMPARISON: NONE CLINICAL HISTORY: US . Pre CABG EXAM MEASUREMENTS: RIGHT: Peak Systolic Velocity (PSV) cm/sec ----- Right CCA: 100.0 ----- Right ICA: 121.0 ----- Right ECA: 85.3 ICA/CCA ratio: 1.2 RIGHT: End Diastole cm/sec ----- Right CCA: 22.5 ----- Right ICA: 53.1 ----- Right ECA: 85.3 LEFT: Peak Systolic Velocity (PSV) cm/sec ----- Left CCA: 80.1 ----- Left ICA: 91.8 ----- Left ECA: 153.1 ICA/CCA ratio: 1.1 LEFT: End Diastole cm/sec ----- Left CCA: 21.9 ----- Left ICA: 21.9 ----- Left ECA: 16.0 VERTEBRALS (direction of flow): Right Vertebral: Antegrade Left Vertebral: Antegrade TECHNOLOGIST IMPRESSION: No significant ICA stenosis bilaterally. Moderate plaque mid CCA bilaterally, bulb bilaterally and L eft ECA. IMPRESSION: There is antegrade flow in the vertebral arteries. The images and measurements suggest 3 0-40% stenosis in both internal carotid arteries. Criteria for Assigning % of Stenosis / Diameter reduction (Estimation based on the indirect measurements of the internal carotid artery velocities (ICA PSV). 1. Normal (no stenosis)=ICA PSV < 125 cm/s: ratio < 2.0: ICA EDV<40 cm/s. 2. Less than 50% stenosis=ICA PSV < 125 cm/s: ratio < 2.0: ICA EDV<40 cm/s. 3. 50 to 69% stenosis=ICA PSV of 125 to 230 cm/s: ration 2.0 ? 4.0: ICA EDV 40-100 cm/s. 4. Greater than 70% stenosis to near occlusion= ICA PSV > 230 cm/s: ratio > 4.0: ICA EDV > 100 cm/s. 5. Near occlusion= ICA PSV velocities may be low or undetectable: variable ratio and ICA EDV. 6. Total occlusion=unable to detect flow.
[2016-10-06] MEDS: MUPIROCIN 2% OINT 22 GM TUBE NASAL SCH (22:13)
[2016-10-07 00:55] LABS: Appearance,Urine Clear (Clear); Bilirubin,Urine Negative (Negative); Glucose,Urine (UA) Negative (Negative); Ketones,Urine Negative (Negative); Leukocyte Esterase,Urine Negative (Negative); Nitrite,Urine Negative (Negative); Protein,Urine Negative (Negative); Specific Gravity,Urine 1.014 (1.001-1.035); UA Billing (MACRO vs. MICRO) CHEM; Urobilinogen,Urine <2.0 mg/dL (<2.0)
[2016-10-07] MEDS: HEPARIN SODIUM,PORCINE/D5W PMX 25,000 UNIT in DEXTROSE/WATER 1 500ML.BAG IV SCH (02:24)
[2016-10-07] MEDS ORDERED: HEPARIN SODIUM,PORCINE 5,000 UNIT/ML 1 ML VIAL IV PRN (02:28)
[2016-10-07] MEDS ORDERED: ATORVASTATIN 10 MG TAB PO ONE (05:00)
[2016-10-07] MEDS ORDERED: METOPROLOL TARTRATE 12.5 MG TAB PO ONE (05:00)
[2016-10-07] MEDS ORDERED: ASPIRIN 325 MG TAB PO ONE (05:00)
[2016-10-07 06:07] LABS: Glucose,Whole Blood 112 mg/dL (75-99)
[2016-10-07 07:43] LABS: Basophils % (A) 0 %; CH 30.3; CHCM 32.6; Eosinophils # (A) 0.1 k/uL (0-0.7); Eosinophils % (A) 1 %; HDW 3.04; HGB 12.7 gm/dL (11.4-16.0); Luc # (Auto) 0.24; Luc % (Auto) 2; Lymphocytes # (A) 1.4 k/uL (1.0-4.8); Lymphocytes % (A) 13 %; MCH 30.3 pg (25.0-35.0); MCHC 32.5 g/dL (31.0-37.0); MCV 93.4 fL (80.0-100.0); Mean Platelet Volume 8.1; Monocytes # (A) 0.9 k/uL (0-1.0); Monocytes % (A) 8 %; Neutrophils # (A) 7.6 k/uL (1.3-7.7); Neutrophils % (A) 74 %; RBC 4.18 m/uL (3.80-5.40); RDW 13.9 % (11.5-15.5); WBC 10.2 k/uL (3.8-10.6); WBC (Perox) 11.03
[2016-10-07 07:54] LABS: Potassium 3.7 mmol/L (3.5-5.1); Total Bilirubin 1.2 mg/dL (0.2-1.3); Total Protein 6.8 g/dL (6.3-8.2)
[2016-10-07] MEDS ORDERED: ceFAZolin 1,000 MG in SODIUM CHLORIDE 0.9% IRRIGATIO 1,000 ML IRRIGATION ONE (08:00)
[2016-10-07] MEDS ORDERED: HEPARIN SODIUM,PORCINE 5,000 UNIT in SODIUM CHLORIDE 0.9% 500 ML IV ONE (08:00)
[2016-10-07] MEDS ORDERED: HEPARIN SODIUM 1,000 UNIT/ML VIAL IV ONE (08:00)
[2016-10-07] MEDS ORDERED: PHENYLEPHRINE-0.9% NACL SYG 1 MG/10 ML SYRINGE IV ONE ×4 (08:00)
[2016-10-07] MEDS ORDERED: CALCIUM CHLORIDE 100 MG/ML 10 ML SYRINGE IVP ONE (08:00)
[2016-10-07] MEDS ORDERED: ceFAZolin 2,000 MG in SODIUM CHLORIDE 0.9% 30 ML IVPB ONE (08:00)
[2016-10-07] MEDS ORDERED: MAGNESIUM SULFATE SYG 4.06 MEQ/ML SYRINGE IV ONE (08:00)
[2016-10-07] MEDS ORDERED: PAPAVERINE 360 MG in SODIUM CHLORIDE 0.9% 90 ML IV ONE (08:00)
[2016-10-07] MEDS ORDERED: PROPOFOL 500 MG in EMPTY BAG 1 BAG IV ONE (08:00)
[2016-10-07] MEDS ORDERED: PROTAMINE SULFATE 10 MG/ML 25 ML VIAL IV ONE (08:00)
[2016-10-07] MEDS ORDERED: INSULIN REGULAR 100 UNIT in SODIUM CHLORIDE 0.9% 100 ML IV ONE (08:00)
[2016-10-07] MEDS ORDERED: CLEVIDIPINE BUTYRATE 25 MG in EMPTY BAG 1 BAG IV ONE (08:00)
[2016-10-07] MEDS ORDERED: SODIUM BICARB 8.4% 50 ML SYR (1 MEQ/ML) IV ONE (08:00)
[2016-10-07] MEDS ORDERED: ceFAZolin 2 GM in SODIUM CHLORIDE 0.9% 30 ML IVPB ONE (08:00)
[2016-10-07] MEDS ORDERED: NITROGLYCERIN-D5W PMX 25 MG/250 ML BTL IV ONE (08:00)
[2016-10-07] MEDS ORDERED: ALBUMIN HUMAN 25% 50 ML in EMPTY BAG 1 BAG IVPB ONE (08:00)
[2016-10-07] MEDS ORDERED: NITROGLYCERIN-D5W PMX 50 MG in DEXTROSE/WATER 1 250ML.BAG IV ONE (08:00)
[2016-10-07] MEDS ORDERED: CHLORHEXIDINE GLUCONATE 15 ML CUP MUCOUS MEM ONE (08:00)
[2016-10-07] MEDS ORDERED: NOREPINEPHRINE 4 MG in SODIUM CHLORIDE 0.9% 250 ML IV ONE (08:00)
[2016-10-07] MEDS ORDERED: ALBUMIN HUMAN 5% 500 ML in EMPTY BAG 1 BAG IVPB ONE ×6 (08:00)
[2016-10-07] MEDS ORDERED: PROTAMINE SULFATE 250 MG in EMPTY BAG 1 BAG IV ONE (08:00)
[2016-10-07] MEDS: SYMBICORT 160-4.5 MCG INHALER INHALATION SCH ×2 (08:23→20:12)
[2016-10-07] MEDS ORDERED: PROPOFOL 10 MG/ML 20 ML VIAL IV ONE (08:38)
[2016-10-07] MEDS ORDERED: POTASSIUM CHLORIDE OPEN HEART 20 MEQ/50 ML BAG IVPB ONE (08:38)
[2016-10-07] MEDS ORDERED: fentaNYL (PF) 50 MCG/ML 50 ML VIAL ONE (08:38)
[2016-10-07] MEDS ORDERED: fentaNYL (PF) 50 MCG/ML 2 ML AMP ONE (08:38)
[2016-10-07] MEDS ORDERED: MIDAZOLAM 2 MG/2 ML VIAL ONE (08:38)
[2016-10-07] MEDS ORDERED: HEPARIN SODIUM,PORCINE 5,000 UNIT/ML 1 ML VIAL ONE (08:38)
[2016-10-07] MEDS ORDERED: VECURONIUM 10 MG VIAL IV ONE (08:38)
[2016-10-07] MEDS ORDERED: SUCCINYLCHOLINE CHLORIDE 100 MG/5 ML SYR IV ONE (08:38)
[2016-10-07] MEDS ORDERED: PHENYLEPHRINE-0.9% NACL SYG 1 MG/10 ML SYRINGE ONE (08:38)
[2016-10-07] MEDS ORDERED: ALBUMIN HUMAN 5% 250 ML BOTTLE IVPB ONE (08:38)
[2016-10-07] MEDS ORDERED: PROTAMINE SULFATE 10 MG/ML 5 ML VIAL IV ONE (08:38)
[2016-10-07] MEDS ORDERED: SODIUM CHLORIDE 0.9% IRRIG 1,000 ML BTL IRRIGATION ONE (08:38)
[2016-10-07] MEDS ORDERED: ATORVASTATIN 40 MG TAB PO SCH (09:00)
[2016-10-07 09:21] LABS: Glucose,Whole Blood 99 mg/dL (75-99)
--- NOTE | 2016-10-07 11:30 | PN ---
DATE OF SERVICE: 10/06/2016 This 66 -year-old woman was admitted with chest pain, possible acute non-ST elevation myocardial infarction, had three vessel coronary artery disease in the cardiac catheterization. The patient also had ejection fraction was about 20% indicating cardiomyopathy. Also patient is being closely monitored. Cardiology and pulmonology saw the patient. The patient by Dr. Arechiga in the outpatient setting. Coronary artery bypass grafting consultation has been recommended. PAST MEDICAL HISTORY: Reviewed. REVIEW OF SYSTEMS: CARDIOVASCULAR: As mentioned earlier. RESPIRATORY: As mentioned earlier. GASTROINTESTINAL: No nausea or vomiting. GENITOURINARY: No dysuria. CENTRAL NERVOUS SYSTEM: No numbness or weakness. Current medications are reviewed and include: 1. Xanax 0.5 q.6h p.r.n. 2. Aspirin 320 mg daily. 3. Lipitor 40 mg daily. 4. Symbicort 160/4.5 2 puffs b.i.d. 5. Lasix 20 mg b.i.d. 7. Heparin IV. 8. Synthroid 50 mcg p.o. daily. 9. Toprol XL 50 mg daily. 11. Nitrostat. 12. Nitro-Bid. 13. Protonix. 14. Aldactone. PHYSICAL EXAMINATION: The patient is alert and oriented times three. Pulse 98. Blood pressure ntd, respiratory rate 20, temperature normal. Pulse ox 97% on 2 L. HEENT: Conjunctivae normal. Oral mucosa moist. NECK: No jugular venous distention. No carotid bruit. No lymph node enlargement. CARDIOVASCULAR SYSTEM: S1, S2 muffled. No S3, no S4. RESPIRATORY: Breath sounds diminished at the bases. No rhonchi, no crackles. ABDOMEN: Soft, nontender. No mass palpable. No hepatosplenomegaly. No ascites. Legs: No edema. No swelling. Nervous system: Higher functions as mentioned. Moves all four limbs. No focal deficits. LYMPHATICS: No lymph nodes palpable in the neck, axillae or groin. SKIN: No ulcer, rash or bleeding. LABS: WBC 10.9, glucose 130, troponin ntd, LDL 116. ASSESSMENT: 1. Chest pain, acute non-ST elevation myocardial infarction, status post cardiac catheterization and as well as three-vessel coronary artery disease. 2. Congestive heart failure with chronic systolic dysfunction, ejection fraction less than 20% with possible ischemic cardiomyopathy 3. Mild valvular abnormalities including mild aortic stenosis, mitral calcification, mitral regurgitation on the 2-D echo. 4. Left bundle branch block on the EKG. 5. Troponin elevated up to 4.260. 6. Hyperlipidemia. 7. Increased random blood sugar. 8. Increased WBC, possibly reactive. 9. Asthma history. 10. History of gastroesophageal reflux disease. 11. Hypertension. 12. Hypothyroidism. 13. History of breast cancer. 14. History of right lung nodule. 15. History of cholecystectomy. 16. History of bone marrow transplant in 1994. 17. FULL CODE. RECOMMENDATIONS AND DISCUSSION: In this 66 -year-old woman who presented with multiple complex medical issues coronary artery disease, at this time, continue the current medications, continue with symptomatic treatment, continue antiplatelet agents and beta blockers. Continue with bronchodilators. Continue the home medications. Closely follow with cardiology and pulmonology. Otherwise cardiothoracic surgical evaluation. Prognosis guarded because of multiple complex medical issues. Further recommendations to follow. MTDD
[2016-10-07 11:46] LABS: Glucose,Whole Blood 94 mg/dL (75-99)
[2016-10-07 12:00] LABS: Hemoglobin A1C 5.3 % (4.2-6.1)
--- NOTE | 2016-10-07 12:26 | CC ---
DATE OF SERVICE: 10/06/2016 Ms. Kim is a 66-year-old female who presented to the emergency room at [facility] with symptoms of chest discomfort. She has an underlying left bundle branch block, but her troponin were minimally elevated. She was transferred to [facility] and she had a troponin up to 4.2. In view of that, recommendation made regarding cardiac catheterization. The procedure as well as the risks and complications were discussed with the patient who is in full understanding and agreement. PROCEDURE: Patient was brought to the experimental machining lab manager in a fasting, semi-sedated state, after receiving fentanyl and Benadryl. She was draped and prepped in conventional fashion using Xylocaine anesthesia and Seldinger technique. A 6 [place] sheath was introduced in the right femoral artery. Selective right and left coronary angiography was performed using 6 [place] 4 bend right and left Kayode catheters. Multiple views of the coronary arteries including hemiaxial views were obtained. Following that, a 6 [place] tight pigtail catheter was introduced in the left ventricle and pressures were calculated. Following that, catheter and sheath were removed. Hemostasis was obtained with deployment of an Angio-Seal. There were no immediate complication. Patient is returned to her room in stable condition. FINDINGS: LEFT MAIN: This is a large-size vessel bifurcating into left circumflex and left anterior descending artery. The left main coronary artery has a 20% to 30% plaque distally with some irregularity. LEFT ANTERIOR DESCENDING ARTERY: This vessel has a 99% stenosis at the take-off from the left main, with evidence to suggest an unstable plaque. It gives rise to a diagonal branch of moderate caliber. The left anterior descending artery beyond the plaque proximally has no evidence of high-grade stenosis. LEFT CIRCUMFLEX: This is a nondominant vessel, large in caliber, giving rise to a large obtuse marginal branch proximally. The left circumflex as well as its branches has no evidence of obstructive coronary artery disease. RIGHT CORONARY ARTERY: This vessel is dominant, large in caliber, bifurcating into PDA and posterolateral segment and branches. The proximal segment of the right coronary artery has a plaque of about 40%. The rest of the vessel has no high-grade stenosis. LEFT VENTRICULOGRAM: Left ventriculogram was not performed. HEMODYNAMICS: There was no gradient across the aortic valve. The left ventricle end-diastolic pressure was 30 mmHg. CONCLUSION: 1. Critical stenosis involving the ostium of the left anterior descending artery. 2. Mild disease in the right coronary artery. 3. Elevated left ventricular end-diastolic pressure. RECOMMENDATIONS: In view of the anatomy, I have recommended proceeding with evaluation for coronary artery bypass grafting. The rationale behind that, as well as risks and complications, were discussed with the patient. She will be evaluated by the surgical service.
--- NOTE | 2016-10-07 12:29 | LTR ---
October 06, 2016 Tamika Arechiga M.D. RE: Perla Kim Dear Dr. Arechiga: I had the opportunity to perform cardiac catheterization on Mrs. Kim at [facility] on the 06 of October. A full copy of the procedure note will be forwarded to you. In brief, she was found to have critical stenosis at the ostium of the LAD. In view of the location and her known cardiomyopathy, I have recommended proceeding with evaluation for possible coronary artery bypass grafting. I will keep you updated on her progress and thank you again for allowing me to participate in this patient's care. Please feel free to call if there are any questions. Sincerely, RADHA MERCEDES MD
[2016-10-07] MEDS ORDERED: [UNRECOGNIZED DRUG - OTHER] IVPB STA (12:41)
[2016-10-07] MEDS ORDERED: WATER FOR INJECTION IVPB STA (12:41)
[2016-10-07 12:49] LABS: Glucose,Whole Blood 105 mg/dL (75-99)
[2016-10-07 14:08] LABS: Glucose,Whole Blood 114 mg/dL (75-99)
[2016-10-07 14:08] LABS: INR 1.3 (<1.1); Partial Thromboplastin Time 25.6 sec (22.0-30.0)
[2016-10-07 14:23] LABS: Basophils % (A) 0 %; CH 30.3; CHCM 32.9; Eosinophils # (A) 0.1 k/uL (0-0.7); Eosinophils % (A) 1 %; HCT 25.1 % (34.0-46.0); HDW 3.04; Luc # (Auto) 0.17; Luc % (Auto) 2; Lymphocytes # (A) 1.4 k/uL (1.0-4.8); Lymphocytes % (A) 15 %; MCHC 33.5 g/dL (31.0-37.0); MCV 92.4 fL (80.0-100.0); Mean Platelet Volume 7.4; Monocytes # (A) 0.5 k/uL (0-1.0); Monocytes % (A) 6 %; Neutrophils # (A) 6.6 k/uL (1.3-7.7); Neutrophils % (A) 75 %; RBC 2.72 m/uL (3.80-5.40); RDW 13.8 % (11.5-15.5); WBC 8.7 k/uL (3.8-10.6); WBC (Perox) 9.13
[2016-10-07 14:30] LABS: Ionized Calcium 4.4 mg/dL (4.5-5.3)
[2016-10-07] MEDS ORDERED: MILRINONE-D5W PMX 20 MG in DEXTROSE/WATER 1 100ML.BAG IV SCH (14:30)
--- NOTE | 2016-10-07 14:31 | XR ---
EXAMINATION TYPE: XR chest 1V portable DATE OF EXAM: 10/07/2016 2:20 PM COMPARISON: 10/05/2016 HISTORY: Check tube placement TECHNIQUE: Single frontal view of the chest is obtained. FINDINGS: Endotracheal tube is 2 cm from the sandra and could be pulled back 1 to 2 cm. There is no heart failure. There are sternal wires. There is right jugular catheter with tip in the pulmonary art harriett. There is left chest tube in good position. There is no sign of a pneumothorax. IMPRESSION: No heart failure. Endotracheal tube is a little low in the trachea.
[2016-10-07 14:34] LABS: HGB 8.4 gm/dL (11.4-16.0)
[2016-10-07 14:39] LABS: Anion Gap 12 mmol/L; Blood Urea Nitrogen 14 mg/dL (7-17); Calcium 7.6 mg/dL (8.4-10.2); Carbon Dioxide 27 mmol/L (22-30); Chloride 105 mmol/L (98-107); Glucose 100 mg/dL (74-99); Magnesium 1.1 mg/dL (1.6-2.3); Non-African American GFR(MDRD) >60 (>60 ml/min/1.73 sqM); Sodium 144 mmol/L (137-145)
[2016-10-07 14:47] LABS: ABG Base Excess 2.1 mmol/L; ABG HCO3 26 mmol/L (21-25); ABG PCO2 40 mmHg (35-45); ABG PH 7.43 (7.35-7.45); ABG PO2 >400 mmHg (83-108); ABG TCO2 27 mmol/L (19-24)
[2016-10-07] MEDS: NITROGLYCERIN OINT 1 INCH/GM PACKET TOPICAL SCH ×3 (14:49→16:21)
[2016-10-07 14:52] LABS: Basophils % (A) 0 %; CHCM 33.3; Eosinophils # (A) 0.1 k/uL (0-0.7); Eosinophils % (A) 1 %; HCT 25.9 % (34.0-46.0); HDW 3.05; HGB 8.2 gm/dL (11.4-16.0); Luc # (Auto) 0.08; Luc % (Auto) 1; Lymphocytes # (A) 0.7 k/uL (1.0-4.8); Lymphocytes % (A) 9 %; MCH 29.6 pg (25.0-35.0); MCHC 31.6 g/dL (31.0-37.0); MCV 93.7 fL (80.0-100.0); Mean Platelet Volume 8.9; Monocytes # (A) 0.5 k/uL (0-1.0); Monocytes % (A) 6 %; Neutrophils # (A) 7.1 k/uL (1.3-7.7); Neutrophils % (A) 83 %; RBC 2.76 m/uL (3.80-5.40); RDW 14.1 % (11.5-15.5); WBC 8.5 k/uL (3.8-10.6); WBC (Perox) 8.45
[2016-10-07] MEDS: SPIRONOLACTONE 25 MG TAB PO SCH (14:56)
[2016-10-07] MEDS: FUROSEMIDE 20 MG TAB PO SCH ×2 (14:56→16:21)
[2016-10-07] MEDS: MUPIROCIN 2% OINT 22 GM TUBE NASAL SCH ×2 (14:56→21:38)
[2016-10-07 14:59] LABS: Glucose,Whole Blood 108 mg/dL (75-99)
[2016-10-07 15:00] LABS: Anion Gap 10 mmol/L; Blood Urea Nitrogen 13 mg/dL (7-17); Calcium 7.6 mg/dL (8.4-10.2); Carbon Dioxide 29 mmol/L (22-30); Chloride 105 mmol/L (98-107); Glucose 104 mg/dL (74-99); Non-African American GFR(MDRD) >60 (>60 ml/min/1.73 sqM); Potassium 3.4 mmol/L (3.5-5.1); Sodium 144 mmol/L (137-145)
[2016-10-07] MEDS ORDERED: ALBUMIN HUMAN 5% 250 ML in EMPTY BAG 1 BAG IVPB PRN (15:08)
[2016-10-07] MEDS ORDERED: LACTATED RINGERS 250 ML IV PRN (15:08)
[2016-10-07 15:09] LABS: Glucose,Whole Blood 107 mg/dL (75-99)
[2016-10-07] MEDS ORDERED: PROPOFOL 500 MG in EMPTY BAG 1 BAG IV SCH (15:15)
--- NOTE | 2016-10-07 15:56 | P.PN ---
Subjective Principal diagnosis: Acute myocardial infarction, status post emergent CABG. This is a very pleasant 66-year-old female patient who follows with Dr. Arechiga as her primary care physician. She has a history of metastatic breast cancer, status post bilateral mastectomy/radiation and previous stem cell transplant. She also has a history of gastroesophageal reflux disease, chronic cough related to radiation pneumonitis, history of BRCA gene positive, bilateral oophorectomy, history of lymphoma. She also had a small left upper lobe nodule in the status post wedge resection. She is a lifelong nonsmoker. He presented here on 10/05/2016 as a transfer from [facility] for myocardial infarction. She'd undergone cardiac catheterization today and is found to have severe coronary artery disease and the plan is for coronary artery bypass grafting. She is a severely impaired left ventricular systolic function with estimated ejection fraction less than 20%. She is seen in consultation today postprocedure resting fairly comfortably in bed. She denies any further chest discomfort. She remains on heparin drip. She denies any palpitations lightheadedness or dizziness. No shortness of breath, cough or congestion. Patient was reevaluated today on 10/07/2016, she underwent CABG early this morning , and she was sent back to the ICU on mechanical ventilation which is expected, she also has an intra-aortic balloon pump in place. Chest x-ray was reviewed, ABG was reviewed, and ventilator settings were reviewed. Considering her excellent blood gases, and considering the patient is beginning to wake up, I would likely recommend following the protocol for weaning, and we'll likely extubate later this afternoon. Objective - Vital Signs Vital signs: Vital Signs Temp 97.4 F L 10/07/16 05:38 Pulse 101 H 10/07/16 05:38 Resp 16 10/07/16 05:38 BP 89/55 10/07/16 05:38 Pulse Ox 96 10/07/16 05:38 Intake & Output 10/06/16 10/07/16 10/07/16 18:59 06:59 18:59 Intake Total 1270.367 180.752 Output Total 1450 300 600 Balance -179.633 -119.248 -600 Weight 77.7 kg Intake: Intake, IV Titration 1050.367 180.752 Amount Heparin Sodium,Porcine/ 250.367 D5w Pmx 25,000 unit In Dextrose/Water 1 500ml. bag @ 12 UNITS/KG/HR 18.5 mls/hr IV .Q24H [facility] Rx#: [id number] Heparin Sodium,Porcine/ 180.752 D5w Pmx 25,000 unit In Dextrose/Water 1 500ml. bag @ 12 UNITS/KG/HR 18. 96 mls/hr IV .Q24H [facility] Rx #:[id number] Sodium Chloride 0.9% 1, 800 000 ml @ 75 mls/hr IV . [id number] [facility] Rx#:[id number] Oral 220 Output: Urine 1450 300 250 Estimated Blood Loss 350 Other: Voiding Method Toilet # Voids 0 - Exam Physical Exam: Revealed a 66-year-old female on mechanical ventilation, in no distress. HEENT:[Neck is supple.] [No neck masses.] [No thyromegaly.] [No JVD.] Chest: [Clear throughout, no crackles, no rhonchi, no wheezes.] Cardiac Exam: [Normal S1 and S2, no S3 gallop, no murmur.] Positive pericardial rub Abdomen: [Soft, nontender, no megaly, no rebound, no guarding, normal bowel sounds.] Extremities: [No clubbing, no edema, no cyanosis.] Neurological Exam: [Cannot be assessed - Labs CBC & Chem 7: 10/07/16 14:40 10/07/16 14:40 Labs: Abnormal Lab Results - Last 24 Hours (Table) 10/06/16 10/06/16 10/06/16 Range/Units 18:02 18:03 21:00 RBC (3.80-5.40) m/uL Hgb (11.4-16.0) gm/dL Hct (34.0-46.0) % Plt Count (150-450) k/uL Lymphocytes # (1.0-4.8) k/uL PT (9.0-12.0) sec APTT 32.8 H (22.0-30.0) sec ABG pO2 (83-108) mmHg ABG HCO3 (21-25) mmol/L ABG Total CO2 (19-24) mmol/L ABG O2 Saturation (94-97) % Potassium 3.3 L (3.5-5.1) mmol/L Carbon Dioxide 31 H (22-30) mmol/L Creatinine (0.52-1.04) mg/dL Glucose 126 H (74-99) mg/dL POC Glucose (mg/dL) (75-99) mg/dL Calcium (8.4-10.2) mg/dL Ionized Calcium Luis Antonio (4.5-5.3) mg/dL Magnesium (1.6-2.3) mg/dL AST 90 H (14-36) U/L Crossmatch See Detail 10/07/16 10/07/16 10/07/16 Range/Units 05:49 06:27 12:35 RBC (3.80-5.40) m/uL Hgb (11.4-16.0) gm/dL Hct (34.0-46.0) % Plt Count (150-450) k/uL Lymphocytes # (1.0-4.8) k/uL PT (9.0-12.0) sec APTT (22.0-30.0) sec ABG pO2 (83-108) mmHg ABG HCO3 (21-25) mmol/L ABG Total CO2 (19-24) mmol/L ABG O2 Saturation (94-97) % Potassium (3.5-5.1) mmol/L Carbon Dioxide (22-30) mmol/L Creatinine 1.11 H (0.52-1.04) mg/dL Glucose (74-99) mg/dL POC Glucose (mg/dL) 112 H 105 H (75-99) mg/dL Calcium (8.4-10.2) mg/dL Ionized Calcium Luis Antonio (4.5-5.3) mg/dL Magnesium (1.6-2.3) mg/dL AST 79 H (14-36) U/L Crossmatch 10/07/16 10/07/16 10/07/16 Range/Units 13:45 13:45 13:45 RBC 2.72 L (3.80-5.40) m/uL Hgb 8.4 L D (11.4-16.0) gm/dL Hct 25.1 L (34.0-46.0) % Plt Count 122 L (150-450) k/uL Lymphocytes # (1.0-4.8) k/uL PT 13.0 H (9.0-12.0) sec APTT (22.0-30.0) sec ABG pO2 (83-108) mmHg ABG HCO3 (21-25) mmol/L ABG Total CO2 (19-24) mmol/L ABG O2 Saturation (94-97) % Potassium (3.5-5.1) mmol/L Carbon Dioxide (22-30) mmol/L Creatinine (0.52-1.04) mg/dL Glucose 100 H (74-99) mg/dL POC Glucose (mg/dL) (75-99) mg/dL Calcium 7.6 L (8.4-10.2) mg/dL Ionized Calcium Luis Antonio 4.4 L (4.5-5.3) mg/dL Magnesium 1.1 L (1.6-2.3) mg/dL AST (14-36) U/L Crossmatch 10/07/16 10/07/16 10/07/16 Range/Units 13:48 14:35 14:39 RBC (3.80-5.40) m/uL Hgb (11.4-16.0) gm/dL Hct (34.0-46.0) % Plt Count (150-450) k/uL Lymphocytes # (1.0-4.8) k/uL PT (9.0-12.0) sec APTT (22.0-30.0) sec ABG pO2 >400 H (83-108) mmHg ABG HCO3 26 H (21-25) mmol/L ABG Total CO2 27 H (19-24) mmol/L ABG O2 Saturation 100.0 H (94-97) % Potassium (3.5-5.1) mmol/L Carbon Dioxide (22-30) mmol/L Creatinine (0.52-1.04) mg/dL Glucose (74-99) mg/dL POC Glucose (mg/dL) 114 H 108 H (75-99) mg/dL Calcium (8.4-10.2) mg/dL Ionized Calcium Luis Antonio (4.5-5.3) mg/dL Magnesium (1.6-2.3) mg/dL AST (14-36) U/L Crossmatch 10/07/16 10/07/16 10/07/16 Range/Units 14:40 14:40 15:07 RBC 2.76 L (3.80-5.40) m/uL Hgb 8.2 L (11.4-16.0) gm/dL Hct 25.9 L (34.0-46.0) % Plt Count 133 L (150-450) k/uL Lymphocytes # 0.7 L (1.0-4.8) k/uL PT (9.0-12.0) sec APTT (22.0-30.0) sec ABG pO2 (83-108) mmHg ABG HCO3 (21-25) mmol/L ABG Total CO2 (19-24) mmol/L ABG O2 Saturation (94-97) % Potassium 3.4 L (3.5-5.1) mmol/L Carbon Dioxide (22-30) mmol/L Creatinine (0.52-1.04) mg/dL Glucose 104 H (74-99) mg/dL POC Glucose (mg/dL) 107 H (75-99) mg/dL Calcium 7.6 L (8.4-10.2) mg/dL Ionized Calcium Luis Antonio (4.5-5.3) mg/dL Magnesium (1.6-2.3) mg/dL AST (14-36) U/L Crossmatch Microbiology - Last 24 Hours (Table) 10/07/16 00:30 Urine Culture - Preliminary Urine,Voided 10/06/16 17:30 Nasal Screen MRSA/MSSA (ROYCE) - Preliminary Nasal Swab Assessment and Plan Plan: Impression: Status post emergent CABG for severe ostial stenosis of the LAD. Patient is presently on mechanical ventilation as expected. I plan to wean and likely extubate over the next few hours. Patient is also status post intra- aortic balloon pump placement for severe LV dysfunction. #1 Chest pain in a patient found to have significant coronary artery disease on cardiac catheterization performed today. The plan is for coronary artery bypass grafting. #2 Severe ischemic cardiomyopathy with estimated ejection fraction less than 20% . #3 Left bundle branch block pattern on EKG. #4 History of breast cancer status post bilateral mastectomy/radiation, BRCA gene positive. #5 Chronic cough secondary to radiation pneumonitis. #6 Stem cell transplant in 1994. #7 Hypothyroidism. #8 Hypertension. #9 Gastroesophageal reflux disease. Recommendation: Continue mechanical ventilation, follow the protocol, will likely end wean and extubate today. Continue bronchodilators, and GI and DVT prophylaxis
[2016-10-07] MEDS ORDERED: CALCIUM GLUCONATE 1,000 MG in SODIUM CHLORIDE 0.9% 100 ML IVPB ONE (16:00)
[2016-10-07] MEDS ORDERED: POTASSIUM CHLORIDE 20 MEQ in WATER FOR INJECTION 1 100ML.BAG IVPB ONE (16:00)
[2016-10-07] MEDS: MAGNESIUM SULFATE-D5W PMX 1 GM in DEXTROSE/WATER 1 100ML.BAG IVPB SCH ×2 (16:02→17:36)
[2016-10-07] MEDS: ACETAMINOPHEN IV (For NPO) 1,000 MG in EMPTY BAG 1 BAG IVPB SCH ×2 (16:03→23:41)
[2016-10-07 16:09] LABS: Glucose,Whole Blood 112 mg/dL (75-99)
[2016-10-07] MEDS: LACTATED RINGERS 1,000 ML IV SCH (16:22)
[2016-10-07 17:19] LABS: Glucose,Whole Blood 117 mg/dL (75-99)
[2016-10-07] MEDS: ceFAZolin 2 GM in SODIUM CHLORIDE 0.9% 100 ML IVPB SCH (17:34)
--- NOTE | 2016-10-07 17:56 | PN ---
Perla Kim is a 66-year-old female who underwent coronary bypass grafting today. She underwent cardiac catheterization yesterday, was found to have an ostial LAD lesion. She underwent intra-aortic balloon pump placement prophylactic prior to surgical intervention. She is intubated and sedated on low-dose Levophed and on Primacor in addition to the balloon pump. She is in sinus mechanism. Her blood pressure is running in the 100 hundreds. Heart rate in the 90s. LUNGS: Clear anteriorly. HEART: Regular rate rhythm. S1, S2, no S3, no rub. ABDOMEN: Soft. No organomegaly. EXTREMITIES: Ian wrapping in place. Lab data revealed hemoglobin of 8.2. BUN and creatinine 13 and 0.93. IMPRESSION: 1. Status post coronary artery bypass grafting. 2. Cardiomyopathy. 3. Chronic left bundle branch block. RECOMMENDATIONS: From the cardiac standpoint, will continue on the present therapy. I will hope that the intra-aortic balloon pump will be removed tomorrow. I am hoping she will be extubated prior to that.
[2016-10-07 18:09] LABS: Glucose,Whole Blood 141 mg/dL (75-99)
[2016-10-07 18:22] LABS: ABG PH 7.35 (7.35-7.45)
[2016-10-07 18:23] LABS: ABG Base Excess 1.9 mmol/L; ABG HCO3 27 mmol/L (21-25); ABG PCO2 50 mmHg (35-45); ABG PO2 100 mmHg (83-108); ABG TCO2 29 mmol/L (19-24)
[2016-10-07 19:23] LABS: Glucose,Whole Blood 156 mg/dL (75-99)
[2016-10-07] MEDS ORDERED: INSULIN REGULAR 100 UNIT in SODIUM CHLORIDE 0.9% 100 ML IV SCH (20:00)
[2016-10-07 20:41] LABS: Glucose,Whole Blood 143 mg/dL (75-99)
[2016-10-07 21:08] LABS: Glucose,Whole Blood 131 mg/dL (75-99)
[2016-10-07 21:18] LABS: Basophils % (A) 0 %; CH 31.1; CHCM 33.1; Eosinophils % (A) 0 %; HCT 27.3 % (34.0-46.0); HDW 3.01; HGB 8.7 gm/dL (11.4-16.0); Luc # (Auto) 0.06; Luc % (Auto) 1; Lymphocytes # (A) 0.4 k/uL (1.0-4.8); Lymphocytes % (A) 4 %; MCHC 31.8 g/dL (31.0-37.0); MCV 94.3 fL (80.0-100.0); Mean Platelet Volume 8.2; Monocytes # (A) 0.5 k/uL (0-1.0); Monocytes % (A) 5 %; Neutrophils # (A) 9.3 k/uL (1.3-7.7); Neutrophils % (A) 90 %; RBC 2.89 m/uL (3.80-5.40); RDW 13.9 % (11.5-15.5); WBC 10.3 k/uL (3.8-10.6)
[2016-10-07 21:22] LABS: Ionized Calcium 4.8 mg/dL (4.5-5.3)
[2016-10-07 21:33] LABS: ALT 108 U/L (9-52); AST 155 U/L (14-36); Alkaline Phosphatase 73 U/L (38-126); Anion Gap 8 mmol/L; Blood Urea Nitrogen 13 mg/dL (7-17); Calcium 8.1 mg/dL (8.4-10.2); Carbon Dioxide 30 mmol/L (22-30); Chloride 103 mmol/L (98-107); Glucose 132 mg/dL (74-99); Non-African American GFR(MDRD) >60 (>60 ml/min/1.73 sqM); Phosphorous 3.7 mg/dL (2.5-4.5); Potassium 3.8 mmol/L (3.5-5.1); Sodium 141 mmol/L (137-145); Total Bilirubin 1.2 mg/dL (0.2-1.3)
[2016-10-07] MEDS: PANTOPRAZOLE 40 MG TABLET PO SCH (21:37)
[2016-10-07] MEDS: LEVOTHYROXINE 50 MCG TAB PO SCH (21:37)
[2016-10-07 22:07] LABS: Glucose,Whole Blood 119 mg/dL (75-99)
[2016-10-07] MEDS: MILRINONE-D5W PMX 20 MG in DEXTROSE/WATER 1 100ML.BAG IV SCH (22:15)
[2016-10-07] MEDS ORDERED: Potassium Replacement Protocol 1 EACH MISC MISCELLANE PRN (22:30)
[2016-10-07] MEDS ORDERED: Phosphorus Replacement Protoco 1 EACH MISC MISCELLANE PRN (22:30)
[2016-10-07] MEDS ORDERED: Magnesium Replacement Protocol 1 EACH MISC MISCELLANE PRN (22:30)
[2016-10-07] MEDS ORDERED: POTASSIUM CHLORIDE ER 20 MEQ TAB.ER PO SCH (23:00)
[2016-10-07 23:20] LABS: Glucose,Whole Blood 118 mg/dL (75-99)
[2016-10-07] MEDS: LOSARTAN-HCTZ 50-12.5 MG 1 EACH TAB PO SCH (23:30)
[2016-10-07] MEDS: METOPROLOL SUCCINATE (ER) 50 MG TAB.ER.24H PO SCH (23:30)
[2016-10-08] MEDS: ceFAZolin 2 GM in SODIUM CHLORIDE 0.9% 100 ML IVPB SCH (00:05)
[2016-10-08 00:15] LABS: Glucose,Whole Blood 114 mg/dL (75-99)
[2016-10-08] MEDS: NITROGLYCERIN OINT 1 INCH/GM PACKET TOPICAL SCH (00:17)
[2016-10-08 01:08] LABS: Glucose,Whole Blood 112 mg/dL (75-99)
[2016-10-08 02:09] LABS: Glucose,Whole Blood 116 mg/dL (75-99)
[2016-10-08 02:55] LABS: Ionized Calcium 4.7 mg/dL (4.5-5.3)
[2016-10-08 03:00] LABS: Magnesium 1.8 mg/dL (1.6-2.3); Phosphorous 4.1 mg/dL (2.5-4.5); Potassium 3.9 mmol/L (3.5-5.1)
[2016-10-08 03:12] LABS: Glucose,Whole Blood 111 mg/dL (75-99)
[2016-10-08] MEDS: POTASSIUM CHLORIDE 10 MEQ in WATER FOR INJECTION 1 100ML.BAG IVPB SCH ×4 (03:30→19:00)
[2016-10-08] MEDS: MAGNESIUM SULFATE-D5W PMX 1 GM in DEXTROSE/WATER 1 100ML.BAG IVPB SCH ×2 (03:30→04:47)
[2016-10-08 04:06] LABS: Glucose,Whole Blood 106 mg/dL (75-99)
[2016-10-08 05:07] LABS: Glucose,Whole Blood 118 mg/dL (75-99)
[2016-10-08] MEDS: ACETAMINOPHEN IV (For NPO) 1,000 MG in EMPTY BAG 1 BAG IVPB SCH ×3 (05:34→17:57)
[2016-10-08 06:04] LABS: Glucose,Whole Blood 130 mg/dL (75-99)
[2016-10-08 06:56] LABS: Basophils % (A) 0 %; CH 30.6; CHCM 32.8; Eosinophils % (A) 0 %; HCT 27.7 % (34.0-46.0); HGB 8.9 gm/dL (11.4-16.0); Luc # (Auto) 0.11; Luc % (Auto) 1; Lymphocytes # (A) 1.2 k/uL (1.0-4.8); Lymphocytes % (A) 12 %; MCHC 31.9 g/dL (31.0-37.0); MCV 93.8 fL (80.0-100.0); Mean Platelet Volume 8.4; Monocytes # (A) 0.7 k/uL (0-1.0); Monocytes % (A) 7 %; Neutrophils # (A) 8.3 k/uL (1.3-7.7); Neutrophils % (A) 80 %; RBC 2.95 m/uL (3.80-5.40); WBC 10.4 k/uL (3.8-10.6); WBC (Perox) 10.25
[2016-10-08 07:05] LABS: Glucose,Whole Blood 117 mg/dL (75-99)
[2016-10-08 07:07] LABS: INR 1.1 (<1.1); Prothrombin Time 11.3 sec (9.0-12.0)
[2016-10-08 07:33] LABS: Ionized Calcium 4.7 mg/dL (4.5-5.3)
[2016-10-08] MEDS: SYMBICORT 160-4.5 MCG INHALER INHALATION SCH ×2 (07:33→19:57)
[2016-10-08 07:56] LABS: ALT 86 U/L (9-52); AST 136 U/L (14-36); Alkaline Phosphatase 71 U/L (38-126); Anion Gap 8 mmol/L; Blood Urea Nitrogen 11 mg/dL (7-17); Carbon Dioxide 28 mmol/L (22-30); Chloride 102 mmol/L (98-107); Glucose 121 mg/dL (74-99); Magnesium 2.6 mg/dL (1.6-2.3); Non-African American GFR(MDRD) >60 (>60 ml/min/1.73 sqM); Potassium 4.4 mmol/L (3.5-5.1); Sodium 138 mmol/L (137-145); Total Protein 4.9 g/dL (6.3-8.2)
[2016-10-08 07:57] LABS: Glucose,Whole Blood 119 mg/dL (75-99)
[2016-10-08] MEDS ORDERED: ONDANSETRON 4 MG/2 ML VIAL IVP STA (08:00)
[2016-10-08] MEDS ORDERED: ONDANSETRON 4 MG/2 ML VIAL IVP PRN (08:21)
--- NOTE | 2016-10-08 08:30 | XR ---
EXAMINATION TYPE: XR chest 1V portable DATE OF EXAM: 10/08/2016 6:46 AM COMPARISON: Prior chest x-ray first of October 2016 HISTORY: Chest tube, status post extubation, open heart surgery TECHNIQUE: Single frontal view of the chest is obtained. FINDINGS: Endotracheal tube has been removed, left-sided chest tube remains in place. Central venous catheter, aortic balloon, remain in place, lung volumes are low. No sizable pneumothorax or pleural effusion. There are overlying cardiac leads. Mediastinal drains in place. Heart remains enlarged. Ate lectatic changes are thought to persist. IMPRESSION: Status post extubation. Cardiomegaly, rotated expiratory exam.
--- NOTE | 2016-10-08 08:38 | OP ---
DATE OF SERVICE: 10/07/2016 SURGEON: Christopher Gibbons MD SCRAP HANDLER: 1. NYASIA BLACKMAN. 2. TRENT MURRELL PREOPERATIVE DIAGNOSIS: Coronary artery disease. POSTOPERATIVE DIAGNOSIS: Coronary artery disease. OPERATION: 1. Urgent off pump coronary bypass graft x1 with left internal mammary artery to left anterior descending artery. 2. Insertion of intra-aortic balloon pump ANESTHESIA: General anesthesia. ESTIMATED BLOOD LOSS: SPECIMENS REMOVED: None. COMPLICATIONS: None. OPERATIVE FINDINGS: DESCRIPTION OF PROCEDURE: COMPLICATIONS: None. INDICATIONS: The patient is a 66-year-old female with a history of breast cancer, status post bilateral mastectomy with radiation therapy, lymphoma, and the left lung wedge resection who presented to the hospital with left upper extremity pain and left jaw pain. Troponins were found to be positive. Cardiac catheterization was performed which revealed a 99% ostial LAD lesion. An urgent coronary bypass was recommended. The risks, benefits, alternatives to this procedure discussed with patient and her family. All questions answered. Consent was obtained. FINDINGS: Left total mammary artery was a good conduit ( ). The LAD measured 1.5 mm. There were no significant adhesions noted in the mediastinum. The patient's ejection fraction upon arrival to the operating room was approximately 20%. It did improve following bypass. PROCEDURE IN DETAIL: The patient was taken to the operating room, placed supine on the operating table. After induction of general anesthesia an intraaortic balloon bump was placed via the right femoral artery using standard Seldinger technique. A ( ) needle was used to gain access to the right femoral artery. A guidewire was inserted and this location identified using transesophageal echo probe. Using standard Seldinger technique, the intraaortic balloon pump was passed over the guidewire into correct position. It was secured to the skin. Transesophageal echocardiogram did confirm good placement of the balloon distal to the left subclavian artery. The ejection fraction of the heart was approximately 20%. There was mild mitral regurgitation. There was mild aortic insufficiency. A median sternotomy was performed. There were no significant adhesions noted within the mediastinum. The left internal mammary artery was harvested in the standard fashion taking care to clip all branches. Of note, there were some loose adhesions noted between the lung and chest wall, which were taken down bluntly, likely due to her previous left lung wedge resection. Intravenous heparin was administered to achieve an ACT greater than 250. The mammary artery was transected distally revealing brisk flow. The mammary artery was then prepared in the appropriate fashion. A pericardial cradle was created. The heart was then positioned correctly with a moist laps behind and lateral to the heart. The LAD was identified. It appeared to be a good vessel for a good target for bypass. Using a stabilizer, the heart was stabilized though the procedure was performed off pump. A small arteriotomy was created. This was enlarged using scissors. A 1.5 mm flow-through shunt was placed. Using the left internal mammary artery, an end to side anastomosis was created. This was performed ( ) using running 8-0 Prolene suture. The flow through shunt was removed and the suture tied down. The anastomosis was hemostatic. The mammary pedicles intact to the anterior surface of the heart. Protamine was delivered. Hemostasis was assured. The mediastinum was copiously irrigated with warm saline solution. Soft tissue was reapproximated over the ascending aorta. A 32 Belarusian chest tube was placed direct to the left pleural space. Two additional 32 Belarusian chest tubes were placed direct into the mediastinum. Of note, a temporary pacer wires were placed on the left ventricle. Hemostasis was assured. The sternum was then reapproximated using stainless wires in a figure of eight fashion. The remainder of the wound was closed in layers. A sterile dressing was applied. The patient appeared to tolerate the procedure well. She returned to the ICU in critical, but stable condition.
[2016-10-08] MEDS: MUPIROCIN 2% OINT 22 GM TUBE NASAL SCH ×2 (08:40→21:23)
[2016-10-08] MEDS: CLOPIDOGREL 75 MG TAB PO SCH (08:40)
[2016-10-08] MEDS: ASPIRIN 325 MG TAB PO SCH (08:40)
[2016-10-08 09:04] LABS: Glucose,Whole Blood 112 mg/dL (75-99)
--- NOTE | 2016-10-08 09:14 | P.PN ---
<Robert Weiner - Last Filed: 10/08/16 08:52> Progress Note - Text CV Surgery Nursing POD: #1, urgent coronary artery bypass graft 1 utilizing a left internal mammary artery to left anterior descending artery, insertion of intra-aortic balloon pump, transesophageal echocardiogram and epi-aortic ultrasonography. Patient is awake and alert, no distress noted, no specific complaints. Vital Signs: Vital Signs - 24 hr 10/07/16 10/07/16 10/07/16 13:45 14:00 14:15 Pulse Rate 96 88 89 Respiratory 19 16 12 Rate O2 Sat by Pulse 100 100 100 Oximetry 10/07/16 10/07/16 10/07/16 14:30 14:45 15:00 Pulse Rate 88 94 95 Respiratory 12 12 12 Rate O2 Sat by Pulse 100 100 100 Oximetry 10/07/16 10/07/16 10/07/16 15:08 15:15 15:30 Pulse Rate 96 100 Respiratory 12 12 Rate O2 Sat by Pulse 100 100 100 Oximetry 10/07/16 10/07/16 10/07/16 15:45 16:00 16:15 Pulse Rate 100 104 H 99 Respiratory 12 13 12 Rate O2 Sat by Pulse 99 91 L 99 Oximetry 10/07/16 10/07/16 10/07/16 16:30 17:00 17:30 Pulse Rate 102 H 104 H 110 H Respiratory 11 L 14 15 Rate O2 Sat by Pulse 99 99 97 Oximetry 10/07/16 10/07/16 10/07/16 18:00 18:30 19:00 Pulse Rate 103 H 104 H 104 H Respiratory 13 16 19 Rate O2 Sat by Pulse 97 98 89 L Oximetry 10/07/16 10/07/16 10/07/16 19:30 20:00 20:30 Pulse Rate 104 H 105 H 105 H Respiratory 13 12 15 Rate O2 Sat by Pulse 91 L 96 94 L Oximetry 10/07/16 10/07/16 10/07/16 21:00 21:30 22:00 Pulse Rate 108 H 106 H 106 H Respiratory 18 16 16 Rate O2 Sat by Pulse 98 96 97 Oximetry 10/07/16 10/07/16 10/07/16 22:30 23:00 23:30 Pulse Rate 106 H 106 H 107 H Respiratory 16 18 18 Rate O2 Sat by Pulse 98 97 97 Oximetry 01/02/17 01/02/17 01/02/17 00:00 00:30 01:00 Pulse Rate 103 H 109 H 104 H Respiratory 17 23 16 Rate O2 Sat by Pulse 98 99 97 Oximetry 10/08/16 10/08/16 10/08/16 01:30 02:00 02:30 Pulse Rate 104 H 104 H 100 Respiratory 17 23 16 Rate O2 Sat by Pulse 97 99 98 Oximetry 10/08/16 10/08/16 10/08/16 03:00 03:30 04:00 Pulse Rate 101 H 104 H 102 H Respiratory 17 19 17 Rate O2 Sat by Pulse 98 97 99 Oximetry 10/08/16 10/08/16 10/08/16 04:30 05:00 05:30 Pulse Rate 103 H 103 H 103 H Respiratory 17 18 19 Rate O2 Sat by Pulse 97 98 97 Oximetry 10/08/16 10/08/16 10/08/16 06:00 06:30 07:00 Pulse Rate 102 H 101 H 101 H Respiratory 18 17 21 Rate O2 Sat by Pulse 98 100 100 Oximetry 10/08/16 10/08/16 07:30 08:00 Pulse Rate 103 H 99 Respiratory 16 13 Rate O2 Sat by Pulse 100 99 Oximetry ABP, PAP, CO, CI - Last 8 Hours Arterial Blood Pressure 116/53 Arterial Blood Pressure 127/47 Arterial Blood Pressure 127/50 Arterial Blood Pressure 136/46 Arterial Blood Pressure 108/46 Arterial Blood Pressure 103/47 Arterial Blood Pressure 100/40 Arterial Blood Pressure 113/44 Arterial Blood Pressure 113/46 Arterial Blood Pressure 90/40 Arterial Blood Pressure 101/51 Arterial Blood Pressure 87/40 Arterial Blood Pressure 104/46 Arterial Blood Pressure 104/41 Arterial Blood Pressure 103/37 Pulmonary Artery Pressure 44/26 Pulmonary Artery Pressure 49/29 Pulmonary Artery Pressure 46/27 Pulmonary Artery Pressure 42/24 Pulmonary Artery Pressure 41/24 Pulmonary Artery Pressure 41/23 Pulmonary Artery Pressure 38/23 Pulmonary Artery Pressure 41/24 Pulmonary Artery Pressure 42/24 Pulmonary Artery Pressure 39/23 Pulmonary Artery Pressure 40/22 Pulmonary Artery Pressure 38/21 Pulmonary Artery Pressure 42/25 Pulmonary Artery Pressure 40/23 Pulmonary Artery Pressure 38/22 Cardiac Output 4.4 Cardiac Output 4.8 Cardiac Output 4.8 Cardiac Output 5.9 Cardiac Output 5.9 Cardiac Output 5.9 Cardiac Output 5.9 Cardiac Output 5.9 Cardiac Output 5.9 Cardiac Output 5 Cardiac Output 5 Cardiac Output 5 Cardiac Output 5 Cardiac Output 5 Cardiac Output 5 Cardiac Index 2.4 Cardiac Index 2.6 Cardiac Index 3.2 Labs: Short CBC 10/07/16 10/07/16 10/07/16 Range/Units 13:45 14:40 21:05 WBC 8.7 8.5 10.3 (3.8-10.6) k/uL Hgb 8.4 L D 8.2 L 8.7 L (11.4-16.0) gm/dL Hct 25.1 L 25.9 L 27.3 L (34.0-46.0) % Plt Count 122 L 133 L 146 L (150-450) k/uL Neutrophils # 6.6 7.1 9.3 H (1.3-7.7) k/uL 10/08/16 Range/Units 06:30 WBC 10.4 (3.8-10.6) k/uL Hgb 8.9 L (11.4-16.0) gm/dL Hct 27.7 L (34.0-46.0) % Plt Count 149 L (150-450) k/uL Neutrophils # 8.3 H (1.3-7.7) k/uL BMP 10/07/16 10/07/16 10/07/16 13:45 14:40 21:05 Sodium 144 144 141 Potassium 4.0 3.4 L 3.8 Chloride 105 105 103 Carbon Dioxide 27 29 30 BUN 14 13 13 Creatinine 0.89 0.93 0.90 Glucose 100 H 104 H 132 H Calcium 7.6 L 7.6 L 8.1 L 10/08/16 10/08/16 01:55 06:30 Sodium 138 Potassium 3.9 4.4 Chloride 102 Carbon Dioxide 28 BUN 11 Creatinine 0.80 Glucose 121 H Calcium 8.0 L Liver Function 10/07/16 10/08/16 Range/Units 21:05 06:30 Total Bilirubin 1.2 1.0 (0.2-1.3) mg/dL AST 155 H 136 H (14-36) U/L ALT 108 H 86 H (9-52) U/L Alkaline Phosphatase 73 71 (38-126) U/L Albumin 3.3 L 3.0 L (3.5-5.0) g/dL IV Fluids: Primacor drip at 0.2 mcg/kg/m, insulin drip at 0.5 units per hour Cardiac output: 4.4 Cardiac index: 2.4 Pulmonary artery pressures: 51/31 CVP: 20 Lungs: Respirations are even and nonlabored, breath sounds diminished bilaterally, weak cough O2 sat: 99% on 3 L of oxygen delivered via nasal cannula. I/S: Reinforce the importance of regular use of the incentive spirometer. Patient gave return demonstration of proper use of the device and verbalized her understanding of its importance and her intent to make regular use of it. Heart: S1S2, bedside telemetry shows a sinus rhythm, intra-aortic balloon pump in place to right groin at a 1-2 rate with good augmentation Sternum: stable, chest incision clean with silverlon dressing clean and dry. Abdomen: Soft, nontender, Positive bowel sounds present in all 4 quadrants. CBGs: 107-256 U/O: Good via Velazquez catheter to dependent drainage. Chest Tubes: Mediastinal chest tubes without air leak draining 160 mL of serosanguineous fluid over the last 8 hours, 212 mL over the last 12 hours. Left pleural chest tube without air leak drained 84 mL of serosanguineous fluid over the last 8 hours, 122 mL over the last 12 hours. Active Medications Alprazolam (Xanax) 0.25 mg PO Q6HR PRN PRN Reason: Mild Anxiety Last Admin: 10/06/16 08:13 Dose: 0.25 mg Alprazolam (Xanax) 0.5 mg PO Q6HR PRN PRN Reason: Moderate Anxiety Aspirin (Aspirin) 325 mg PO DAILY [facility] Last Admin: 10/08/16 08:40 Dose: 325 mg Atorvastatin Calcium (Lipitor) 40 mg PO DAILY [facility] Bisacodyl (Dulcolax) 10 mg RECTAL DAILY PRN PRN Reason: Constipation Budesonide/Formoterol Fumarate (Symbicort 160-4.5 Mcg Inhaler) 2 puff INHALATION RT-BID [facility] Last Admin: 10/08/16 07:33 Dose: 2 puff Carvedilol (Coreg) 3.125 mg PO BID-W/MEALS [facility] Clopidogrel Bisulfate (Plavix) 75 mg PO DAILY [facility] Last Admin: 10/08/16 08:40 Dose: 75 mg Heparin Sodium (Porcine) (Heparin) 0 unit IV PER PROTOCOL PRN; Protocol PRN Reason: Low PTT Heparin Sodium (Porcine) (Heparin) 0 unit IV PER PROTOCOL PRN; Protocol PRN Reason: Low PTT Heparin Sodium/Dextrose 25,000 (unit/ IV Solution) 500 mls @ 18.96 mls/hr IV .Q24H [facility]; 12 UNITS/KG/HR PRN Reason: Protocol Last Admin: 10/07/16 02:24 Dose: 15 units/kg/hr, 23.7 mls/hr Acetaminophen 1,000 mg/ IV (Solution) 100 mls @ 400 mls/hr IVPB Q6HR [facility] Stop: 10/08/16 18:01 Last Admin: 10/08/16 05:34 Dose: 400 mls/hr Albumin Human 250 ml/ IV (Solution) 250 mls @ 250 mls/hr IVPB Q1HR PRN PRN Reason: For Volume Stop: 10/09/16 15:09 Lactated Ringer's (Lactated Ringers) 250 mls @ 1,000 mls/hr IV .Q15M PRN PRN Reason: For Volume Stop: 10/08/16 15:08 Lactated Ringer's (Lactated Ringers) 1,000 mls @ 50 mls/hr IV .Q20H [facility] Last Admin: 10/07/16 16:22 Dose: 50 mls/hr Propofol 500 mg/ IV Solution 50 mls @ 0 mls/hr IV .Q0M [facility]; Titrate PRN Reason: Protocol Insulin Human Regular 100 unit (/ Sodium Chloride) 101 mls @ 0 mls/hr IV .Q0M [facility]; Per Protocol PRN Reason: Protocol Last Titration: 10/08/16 08:02 Dose: 0.49 units/hr, 0.5 mls/hr Milrinone Lactate/Dextrose 20 (mg/ IV Solution) 100 mls @ 4.66 mls/hr IV .[id number] [facility] PRN Reason: 0.2 MCG/KG/MIN Last Admin: 10/07/16 22:15 Dose: 0.2 mcg/kg/min, 4.66 mls/hr Levothyroxine Sodium (Synthroid) 50 mcg PO HS [facility] Last Admin: 10/07/16 21:37 Dose: 50 mcg Miscellaneous Information (Rx Info: Iv Contrast Was Given) 1 each MISCELLANE DAILY PRN PRN Reason: Per Protocol Stop: 10/08/16 14:33 Miscellaneous Information (Magnesium Per Protocol) 1 each MISCELLANE DAILY PRN ; Protocol PRN Reason: Per Protocol Miscellaneous Information (Phosphorus Per Protocol) 1 each MISCELLANE DAILY PRN ; Protocol PRN Reason: Per Protocol Miscellaneous Information (Potassium Per Protocol) 1 each MISCELLANE DAILY PRN ; Protocol PRN Reason: Per Protocol Mupirocin (Bactroban Oint) 1 applic NASAL BID [facility] Stop: 10/11/16 21:01 Last Admin: 10/08/16 08:40 Dose: 1 applic Nitroglycerin (Nitrostat) 0.4 mg SUBLINGUAL Q5M PRN PRN Reason: Chest Pain Ondansetron HCl (Zofran) 4 mg IVP Q6HR PRN PRN Reason: Nausea And Vomiting Oxycodone HCl (Oxyir) 5 mg PO Q4H PRN PRN Reason: Moderate Pain Stop: 10/08/16 15:20 Last Admin: 10/08/16 07:47 Dose: 5 mg Pantoprazole Sodium (Protonix) 40 mg PO HS [facility] Last Admin: 10/07/16 21:37 Dose: 40 mg Plan: Postop day #1 urgent CABG intra-aortic balloon pump placement. Good progress Continue aggressive pulmonary toilet utilizing incentive spirometry, coughing and deep breathing, and inhalation therapy per respiratory therapy department. Continue to wean intra-aortic balloon pump as cardiac output/cardiac index tolerate. Possibly discontinue mediastinal chest tubes today. Hold Lipitor today for elevated liver enzymes (normalizing). Gentle diuresis. <Christopher Gibbons - Last Filed: 10/08/16 12:30> Progress Note - Text The patient was seen and examined. I agree with the above assessment and plan. She appears to have done well overnight. We have wean the intra-balloon pump down to 1:3 and her cardiac index is still acceptable. I will plan on removing the balloon pump this afternoon. Otherwise she is breathing easily on nasal cannula. She was given Lasix this morning with a good response. We will give her Coreg, aspirin, and Plavix today. We will hold Lipitor due to slightly elevated liver enzymes. Her chest x-ray is clear. We will get her up in a chair later this evening. We will continue with milrinone and her [place]-Petty catheter for now. She was on prednisone preoperatively. We will ask Dr. Ulloa whether this needs to be continued.
[2016-10-08] MEDS ORDERED: FUROSEMIDE 10 MG/ML 2 ML VIAL IV ONE (09:15)
[2016-10-08 10:09] LABS: Glucose,Whole Blood 113 mg/dL (75-99)
[2016-10-08 11:04] LABS: Glucose,Whole Blood 108 mg/dL (75-99)
--- NOTE | 2016-10-08 11:40 | PN ---
DATE OF SERVICE: 10/07/2016 This 66-year-old woman was admitted after chest pain and previous coronary artery disease. The patient underwent coronary artery bypass grafting. He was found to have critical stenosis involving the ostium of the LAD and also mild disease of the RCA. The patient is mechanically ventilated at this time. The patient is being closely with monitored in the ICU. On exam, pulse is 105, blood pressure 130/47, respirations 12, temperature normal, pulse ox 93% on 3 liters after extubation. HEENT: Conjunctiva normal. NECK: Supple. No JVD. CARDIOVASCULAR: S1 and S2 muffled. LUNGS: Breath sounds diminished at the bases. Few scattered rhonchi. ABDOMEN: Soft, nontender. EXTREMITIES: Legs no edema. LABS: 10.7, hemoglobin 8.7. Otherwise, AST is 155 and ALT is 108. Albumin is 3.3. ASSESSMENT: 1. Chest pain, acute non-ST segment infarction status post cardiac catheterization as well as three vessel coronary artery disease, status post coronary artery bypass grafting. 2. Congestive heart failure with chronic systolic dysfunction, ejection fraction less than 20% with possible ischemic cardiomyopathy. 3. Mild valve abnormalities including mild aortic stenosis, mitral calcification, mitral regurgitation on the 2-D echo. 4. Left bundle branch block on EKG. 5. Troponin elevated up to 4.260 on admission. 6. Hyperlipidemia. 7. Increased random blood sugar. 8. Increased WBC, possibly reactive. 9. Asthma history. 10. History of gastroesophageal reflux disease. 11. Hypertension. 12. Hypothyroidism. 13. History of breast cancer. 14. History of right lung nodule. 15. History of cholecystectomy. 16. History of bone marrow transplant in 1994. 17. FULL CODE. RECOMMENDATIONS AND DISCUSSION: Recommend to continue current medications and continue to monitor. Symptomatic treatment. Otherwise, at this time I would recommend continue to follow with Dr. Arechiga and cardiothoracic surgery. Incentive spirometry. Otherwise, continue to monitor. Guarded prognosis because of multiple complex medical issues. Further recommendations to follow.
[2016-10-08 12:02] LABS: Glucose,Whole Blood 109 mg/dL (75-99)
[2016-10-08] MEDS ORDERED: CARVEDILOL 3.125 MG TAB PO STA (12:09)
[2016-10-08 12:27] LABS: Hemoglobin A1C 5.3 % (4.2-6.1)
--- NOTE | 2016-10-08 12:35 | P.PCN ---
Date of Procedure: 10/08/16 Preoperative Diagnosis: Coronary artery disease Postoperative Diagnosis: Same Procedure(s) Performed: Removal of intra-aortic balloon pump Implants: Anesthesia: none Surgeon: Christopher Gibbons [facility] Program Analyst #1: Stated None Condition: stable Disposition: no change Indications for Procedure: The patient is a 66-year-old female who underwent coronary artery bypass surgery yesterday. An intraaortic balloon pump was placed in the operating room secondary to a diminished left ventricular ejection fraction. Overnight she has done well. Her cardiac index and blood pressure are acceptable. Removal of the balloon pump was recommended. Operative Findings: Description of Procedure: The balloon pump was weaned down to 1:3 for a period of time. Her blood pressure and cardiac index remained acceptable. The balloon pump was turned off and the device was removed from the right groin without difficulty. No sheath had been placed originally. The femoral artery was allowed to bleed both antegrade and retrograde for a few beats. Direct pressure was held over the groin for 30 minutes. At the completion of this procedure, there was no evidence of bleeding or hematoma. The groin was soft. The patient had a palpable right dorsalis pedis pulse. A FemStop was then placed and will be removed in 2 hours. Again the right lower extremity appears viable.
[2016-10-08 13:26] LABS: Glucose,Whole Blood 109 mg/dL (75-99)
[2016-10-08 14:07] LABS: Glucose,Whole Blood 105 mg/dL (75-99)
--- NOTE | 2016-10-08 14:57 | P.PN ---
Subjective Principal diagnosis: Acute myocardial infarction, status post emergent CABG. This is a very pleasant 66-year-old female patient who follows with Dr. Arechiga as her primary care physician. She has a history of metastatic breast cancer, status post bilateral mastectomy/radiation and previous stem cell transplant. She also has a history of gastroesophageal reflux disease, chronic cough related to radiation pneumonitis, history of BRCA gene positive, bilateral oophorectomy, history of lymphoma. She also had a small left upper lobe nodule in the status post wedge resection. She is a lifelong nonsmoker. He presented here on 10/05/2016 as a transfer from [facility] for myocardial infarction. She'd undergone cardiac catheterization today and is found to have severe coronary artery disease and the plan is for coronary artery bypass grafting. She is a severely impaired left ventricular systolic function with estimated ejection fraction less than 20%. She is seen in consultation today postprocedure resting fairly comfortably in bed. She denies any further chest discomfort. She remains on heparin drip. She denies any palpitations lightheadedness or dizziness. No shortness of breath, cough or congestion. Patient was reevaluated today on 10/07/2016, she underwent CABG early this morning , and she was sent back to the ICU on mechanical ventilation which is expected, she also has an intra-aortic balloon pump in place. Chest x-ray was reviewed, ABG was reviewed, and ventilator settings were reviewed. Considering her excellent blood gases, and considering the patient is beginning to wake up, I would likely recommend following the protocol for weaning, and we'll likely extubate later this afternoon. Patient was reevaluated today on 10/08/2016, patient had emergent off pump coronary bypass graft 1 with BRAR to LAD, and she also had insertion of intra- aortic balloon pump. Patient is postoperative day #1. She was extubated last night, and she tolerated the extubation quite well. Today the patient is doing well, and she denies any shortness of breath. Her chest x-ray is reassuring, she has chronic changes in the right perihilar area related to previous radiation, and these are not worrisome at this point. Multiple bronchoscopies were done in the past. Patient will have her intra-aortic balloon pump removed today most likely, and she will remain in the ICU. Her labs were reviewed and she had a hemoglobin of 8.9. Her basic metabolic profile is normal. Objective - Vital Signs Vital signs: Vital Signs Temp 97.4 F L 10/07/16 05:38 Pulse 109 H 10/08/16 14:00 Resp 20 10/08/16 14:00 BP 89/55 10/07/16 05:38 Pulse Ox 99 10/08/16 14:00 Intake & Output 10/07/16 10/08/16 10/08/16 18:59 06:59 18:59 Intake Total 1045 1536.31 758.818 Output Total 1256 1294 1575 Balance -211 242.31 -816.182 Weight 77.7 kg 87.2 kg 87.2 kg Intake: IV 445 1129.88 756.8 0.9NS Cardiac Output 150 110 130 0.9ns Pressure Bag 45 141 90 ACETAMINOPHEN IV (For NPO 200 100 ) 1,000 mg In Empty Bag 1 bag @ 400 mls/hr IVPB Q6HR [facility] Rx#:[id number] Lactated Ringers 1,000 ml 250 520 400 @ 50 mls/hr IV .Q20H [facility] Rx#:[id number] Milrinone-D5w Pmx 20 mg 58.88 36.8 In Dextrose/Water 1 100ml .bag @ 0.375 MCG/KG/MIN 8 .74 mls/hr IV .[id number] [facility] Rx#:[id number] ceFAZolin 2 gm In Sodium 100 Chloride 0.9% 100 ml @ 100 mls/hr IVPB Q8HR [facility] Rx#:[id number] Intake, IV Titration 600 406.43 2.018 Amount ACETAMINOPHEN IV (For NPO 100 ) 1,000 mg In Empty Bag 1 bag @ 400 mls/hr IVPB Q6HR [facility] Rx#:[id number] Calcium Gluconate 1,000 100 mg In Sodium Chloride 0.9 % 100 ml @ 100 mls/hr IVPB ONCE ONE Rx#: [id number] Insulin Regular 100 unit 6.43 2.018 In Sodium Chloride 0.9% 100 ml @ Per Protocol IV .Q0M [facility] Rx#:[id number] Magnesium Sulfate-D5w Pmx 200 1 gm In Dextrose/Water 1 100ml.bag @ 100 mls/hr IVPB Q1H [facility] Rx#: [id number] Magnesium Sulfate-D5w Pmx 200 1 gm In Dextrose/Water 1 100ml.bag @ 100 mls/hr IVPB Q1H [facility] Rx#: [id number] Potassium Chloride 10 meq 200 In Water For Injection 1 100ml.bag @ 100 mls/hr IVPB Q1H [facility] Rx#: [id number] Potassium Chloride 20 meq 100 In Water For Injection 1 100ml.bag @ 50 mls/hr IVPB ONCE ONE Rx#: [id number] ceFAZolin 2 gm In Sodium 100 Chloride 0.9% 100 ml @ 100 mls/hr IVPB Q8HR [facility] Rx#:[id number] Output: Chest Tube Drainage 171 399 230 Left Pleural 90 147 80 Mediastinal X 2 81 252 150 Urine 181 578 6844 Emesis 100 Estimated Blood Loss 350 Other: Voiding Method Indwelling Catheter Indwelling Catheter Indwelling Catheter ABP, PAP, CO, CI - Last Documented Arterial Blood Pressure 133/59 Pulmonary Artery Pressure 79/63 Cardiac Output 3.8 Cardiac Index 2.1 - Exam Physical Exam: Revealed a 66-year-old female in no distress, presently on nasal cannula. HEENT:[Neck is supple.] [No neck masses.] [No thyromegaly.] [No JVD.] Chest: [Clear throughout, no crackles, no rhonchi, no wheezes.] Cardiac Exam: [Normal S1 and S2, no S3 gallop, no murmur.] Positive pericardial rub Abdomen: [Soft, nontender, no megaly, no rebound, no guarding, normal bowel sounds.] Extremities: [No clubbing, no edema, no cyanosis.] Neurological Exam: No focal neurologic deficit - Labs CBC & Chem 7: 10/08/16 06:30 10/08/16 06:30 Labs: Abnormal Lab Results - Last 24 Hours (Table) 10/06/16 10/07/16 10/07/16 Range/Units 18:02 14:39 14:40 RBC (3.80-5.40) m/uL Hgb (11.4-16.0) gm/dL Hct (34.0-46.0) % Plt Count (150-450) k/uL Neutrophils # (1.3-7.7) k/uL Lymphocytes # (1.0-4.8) k/uL ABG pCO2 (35-45) mmHg ABG HCO3 (21-25) mmol/L ABG Total CO2 (19-24) mmol/L Potassium 3.4 L (3.5-5.1) mmol/L Glucose 104 H (74-99) mg/dL POC Glucose (mg/dL) 108 H (75-99) mg/dL Calcium 7.6 L (8.4-10.2) mg/dL Magnesium (1.6-2.3) mg/dL AST (14-36) U/L ALT (9-52) U/L Total Protein (6.3-8.2) g/dL Albumin (3.5-5.0) g/dL Crossmatch See Detail 10/07/16 10/07/16 10/07/16 Range/Units 14:40 15:07 15:55 RBC 2.76 L (3.80-5.40) m/uL Hgb 8.2 L (11.4-16.0) gm/dL Hct 25.9 L (34.0-46.0) % Plt Count 133 L (150-450) k/uL Neutrophils # (1.3-7.7) k/uL Lymphocytes # 0.7 L (1.0-4.8) k/uL ABG pCO2 50 H (35-45) mmHg ABG HCO3 27 H (21-25) mmol/L ABG Total CO2 29 H (19-24) mmol/L Potassium (3.5-5.1) mmol/L Glucose (74-99) mg/dL POC Glucose (mg/dL) 107 H (75-99) mg/dL Calcium (8.4-10.2) mg/dL Magnesium (1.6-2.3) mg/dL AST (14-36) U/L ALT (9-52) U/L Total Protein (6.3-8.2) g/dL Albumin (3.5-5.0) g/dL Crossmatch 10/07/16 10/07/16 10/07/16 Range/Units 16:07 16:59 18:07 RBC (3.80-5.40) m/uL Hgb (11.4-16.0) gm/dL Hct (34.0-46.0) % Plt Count (150-450) k/uL Neutrophils # (1.3-7.7) k/uL Lymphocytes # (1.0-4.8) k/uL ABG pCO2 (35-45) mmHg ABG HCO3 (21-25) mmol/L ABG Total CO2 (19-24) mmol/L Potassium (3.5-5.1) mmol/L Glucose (74-99) mg/dL POC Glucose (mg/dL) 112 H 117 H 141 H (75-99) mg/dL Calcium (8.4-10.2) mg/dL Magnesium (1.6-2.3) mg/dL AST (14-36) U/L ALT (9-52) U/L Total Protein (6.3-8.2) g/dL Albumin (3.5-5.0) g/dL Crossmatch 10/07/16 10/07/16 10/07/16 Range/Units 19:20 20:27 21:05 RBC 2.89 L (3.80-5.40) m/uL Hgb 8.7 L (11.4-16.0) gm/dL Hct 27.3 L (34.0-46.0) % Plt Count 146 L (150-450) k/uL Neutrophils # 9.3 H (1.3-7.7) k/uL Lymphocytes # 0.4 L (1.0-4.8) k/uL ABG pCO2 (35-45) mmHg ABG HCO3 (21-25) mmol/L ABG Total CO2 (19-24) mmol/L Potassium (3.5-5.1) mmol/L Glucose (74-99) mg/dL POC Glucose (mg/dL) 156 H 143 H (75-99) mg/dL Calcium (8.4-10.2) mg/dL Magnesium (1.6-2.3) mg/dL AST (14-36) U/L ALT (9-52) U/L Total Protein (6.3-8.2) g/dL Albumin (3.5-5.0) g/dL Crossmatch 10/07/16 10/07/16 10/07/16 Range/Units 21:05 21:05 22:05 RBC (3.80-5.40) m/uL Hgb (11.4-16.0) gm/dL Hct (34.0-46.0) % Plt Count (150-450) k/uL Neutrophils # (1.3-7.7) k/uL Lymphocytes # (1.0-4.8) k/uL ABG pCO2 (35-45) mmHg ABG HCO3 (21-25) mmol/L ABG Total CO2 (19-24) mmol/L Potassium (3.5-5.1) mmol/L Glucose 132 H (74-99) mg/dL POC Glucose (mg/dL) 131 H 119 H (75-99) mg/dL Calcium 8.1 L (8.4-10.2) mg/dL Magnesium (1.6-2.3) mg/dL AST 155 H (14-36) U/L ALT 108 H (9-52) U/L Total Protein 5.0 L (6.3-8.2) g/dL Albumin 3.3 L (3.5-5.0) g/dL Crossmatch 10/07/16 10/08/16 10/08/16 Range/Units 23:14 00:01 01:05 RBC (3.80-5.40) m/uL Hgb (11.4-16.0) gm/dL Hct (34.0-46.0) % Plt Count (150-450) k/uL Neutrophils # (1.3-7.7) k/uL Lymphocytes # (1.0-4.8) k/uL ABG pCO2 (35-45) mmHg ABG HCO3 (21-25) mmol/L ABG Total CO2 (19-24) mmol/L Potassium (3.5-5.1) mmol/L Glucose (74-99) mg/dL POC Glucose (mg/dL) 118 H 114 H 112 H (75-99) mg/dL Calcium (8.4-10.2) mg/dL Magnesium (1.6-2.3) mg/dL AST (14-36) U/L ALT (9-52) U/L Total Protein (6.3-8.2) g/dL Albumin (3.5-5.0) g/dL Crossmatch 10/08/16 10/08/16 10/08/16 Range/Units 01:56 03:08 04:02 RBC (3.80-5.40) m/uL Hgb (11.4-16.0) gm/dL Hct (34.0-46.0) % Plt Count (150-450) k/uL Neutrophils # (1.3-7.7) k/uL Lymphocytes # (1.0-4.8) k/uL ABG pCO2 (35-45) mmHg ABG HCO3 (21-25) mmol/L ABG Total CO2 (19-24) mmol/L Potassium (3.5-5.1) mmol/L Glucose (74-99) mg/dL POC Glucose (mg/dL) 116 H 111 H 106 H (75-99) mg/dL Calcium (8.4-10.2) mg/dL Magnesium (1.6-2.3) mg/dL AST (14-36) U/L ALT (9-52) U/L Total Protein (6.3-8.2) g/dL Albumin (3.5-5.0) g/dL Crossmatch 10/08/16 10/08/16 10/08/16 Range/Units 05:03 06:00 06:30 RBC 2.95 L (3.80-5.40) m/uL Hgb 8.9 L (11.4-16.0) gm/dL Hct 27.7 L (34.0-46.0) % Plt Count 149 L (150-450) k/uL Neutrophils # 8.3 H (1.3-7.7) k/uL Lymphocytes # (1.0-4.8) k/uL ABG pCO2 (35-45) mmHg ABG HCO3 (21-25) mmol/L ABG Total CO2 (19-24) mmol/L Potassium (3.5-5.1) mmol/L Glucose (74-99) mg/dL POC Glucose (mg/dL) 118 H 130 H (75-99) mg/dL Calcium (8.4-10.2) mg/dL Magnesium (1.6-2.3) mg/dL AST (14-36) U/L ALT (9-52) U/L Total Protein (6.3-8.2) g/dL Albumin (3.5-5.0) g/dL Crossmatch 10/08/16 10/08/16 10/08/16 Range/Units 06:30 07:00 07:55 RBC (3.80-5.40) m/uL Hgb (11.4-16.0) gm/dL Hct (34.0-46.0) % Plt Count (150-450) k/uL Neutrophils # (1.3-7.7) k/uL Lymphocytes # (1.0-4.8) k/uL ABG pCO2 (35-45) mmHg ABG HCO3 (21-25) mmol/L ABG Total CO2 (19-24) mmol/L Potassium (3.5-5.1) mmol/L Glucose 121 H (74-99) mg/dL POC Glucose (mg/dL) 117 H 119 H (75-99) mg/dL Calcium 8.0 L (8.4-10.2) mg/dL Magnesium 2.6 H (1.6-2.3) mg/dL AST 136 H (14-36) U/L ALT 86 H (9-52) U/L Total Protein 4.9 L (6.3-8.2) g/dL Albumin 3.0 L (3.5-5.0) g/dL Crossmatch 10/08/16 10/08/16 10/08/16 Range/Units 09:02 10:07 11:02 RBC (3.80-5.40) m/uL Hgb (11.4-16.0) gm/dL Hct (34.0-46.0) % Plt Count (150-450) k/uL Neutrophils # (1.3-7.7) k/uL Lymphocytes # (1.0-4.8) k/uL ABG pCO2 (35-45) mmHg ABG HCO3 (21-25) mmol/L ABG Total CO2 (19-24) mmol/L Potassium (3.5-5.1) mmol/L Glucose (74-99) mg/dL POC Glucose (mg/dL) 112 H 113 H 108 H (75-99) mg/dL Calcium (8.4-10.2) mg/dL Magnesium (1.6-2.3) mg/dL AST (14-36) U/L ALT (9-52) U/L Total Protein (6.3-8.2) g/dL Albumin (3.5-5.0) g/dL Crossmatch 01/11/2310/08/16 10/08/16 Range/Units 12:00 13:07 14:05 RBC (3.80-5.40) m/uL Hgb (11.4-16.0) gm/dL Hct (34.0-46.0) % Plt Count (150-450) k/uL Neutrophils # (1.3-7.7) k/uL Lymphocytes # (1.0-4.8) k/uL ABG pCO2 (35-45) mmHg ABG HCO3 (21-25) mmol/L ABG Total CO2 (19-24) mmol/L Potassium (3.5-5.1) mmol/L Glucose (74-99) mg/dL POC Glucose (mg/dL) 109 H 109 H 105 H (75-99) mg/dL Calcium (8.4-10.2) mg/dL Magnesium (1.6-2.3) mg/dL AST (14-36) U/L ALT (9-52) U/L Total Protein (6.3-8.2) g/dL Albumin (3.5-5.0) g/dL Crossmatch Microbiology - Last 24 Hours (Table) 10/07/16 00:30 Urine Culture - Final Urine,Voided 10/06/16 17:30 Nasal Screen MRSA/MSSA ([facility]) - Final Nasal Swab Assessment and Plan Plan: Impression: Status post emergent CABG for severe ostial stenosis of the LAD. Patient underwent off pump coronary bypass graft 1 with BRAR to left anterior descending artery. She is postoperative day #1, patient was extubated a few hours after her surgery, and she continues to do quite well. Intra-aortic balloon pump remains in place, however it will likely be removed in the next couple of hours. #1 Chest pain in a patient found to have significant coronary artery disease on cardiac catheterization performed today. The plan is for coronary artery bypass grafting. #2 Severe ischemic cardiomyopathy with estimated ejection fraction less than 20% . #3 Left bundle branch block pattern on EKG. #4 History of breast cancer status post bilateral mastectomy/radiation, BRCA gene positive. #5 Chronic cough secondary to radiation pneumonitis. #6 Stem cell transplant in 1994. #7 Hypothyroidism. #8 Hypertension. #9 Gastroesophageal reflux disease. Recommendation: Continue present supportive care measures, patient will remain in the ICU today, and we'll continue to follow. Continue incentive spirometry and bronchodilators. Time with Patient: Less than 30
[2016-10-08 15:26] LABS: Glucose,Whole Blood 102 mg/dL (75-99)
[2016-10-08] MEDS: HEPARIN SODIUM,PORCINE 5,000 UNIT/ML 1 ML VIAL SQ SCH ×2 (15:29→23:12)
[2016-10-08] MEDS: LACTATED RINGERS 1,000 ML IV SCH (15:30)
[2016-10-08] MEDS ORDERED: BISACODYL 10 MG SUPP RECTAL PRN (15:38)
[2016-10-08] MEDS ORDERED: MILRINONE-D5W PMX 20 MG in DEXTROSE/WATER 1 100ML.BAG IV SCH (15:45)
[2016-10-08 16:16] LABS: Glucose,Whole Blood 97 mg/dL (75-99)
[2016-10-08 17:00] LABS: Glucose,Whole Blood 107 mg/dL (75-99)
[2016-10-08] MEDS: CARVEDILOL 3.125 MG TAB PO SCH (17:16)
[2016-10-08 18:03] LABS: Glucose,Whole Blood 108 mg/dL (75-99)
[2016-10-08 19:10] LABS: Glucose,Whole Blood 115 mg/dL (75-99)
[2016-10-08 20:27] LABS: Glucose,Whole Blood 114 mg/dL (75-99)
[2016-10-08 21:13] LABS: Glucose,Whole Blood 112 mg/dL (75-99)
[2016-10-08] MEDS: LEVOTHYROXINE 50 MCG TAB PO SCH (21:22)
[2016-10-08] MEDS: HYDROcodone/APAP 5-325MG 1 EACH TAB PO PRN (21:23)
[2016-10-08] MEDS: PANTOPRAZOLE 40 MG TABLET PO SCH (21:23)
[2016-10-08] MEDS: methylPREDNISolone SOD SUCCI 40 MG/ML 1 ML VIAL IV SCH (21:23)
[2016-10-08 22:11] LABS: Glucose,Whole Blood 153 mg/dL (75-99)
[2016-10-08 23:09] LABS: Glucose,Whole Blood 178 mg/dL (75-99)
[2016-10-08] MEDS: MILRINONE-D5W PMX 20 MG in DEXTROSE/WATER 1 100ML.BAG IV SCH (23:13)
[2016-10-09 00:10] LABS: Glucose,Whole Blood 181 mg/dL (75-99)
[2016-10-09 01:30] LABS: Glucose,Whole Blood 155 mg/dL (75-99)
[2016-10-09 04:06] LABS: Glucose,Whole Blood 93 mg/dL (75-99)
[2016-10-09 04:54] LABS: Basophils % (A) 0 %; CH 30.6; CHCM 32.9; Eosinophils % (A) 0 %; HCT 28.4 % (34.0-46.0); HDW 2.87; HGB 9.1 gm/dL (11.4-16.0); Luc # (Auto) 0.06; Luc % (Auto) 1; Lymphocytes # (A) 0.8 k/uL (1.0-4.8); Lymphocytes % (A) 7 %; MCHC 32.1 g/dL (31.0-37.0); MCV 93.4 fL (80.0-100.0); Mean Platelet Volume 8.6; Monocytes # (A) 0.6 k/uL (0-1.0); Monocytes % (A) 5 %; Neutrophils % (A) 88 %; RBC 3.04 m/uL (3.80-5.40); RDW 13.8 % (11.5-15.5); WBC 12.5 k/uL (3.8-10.6); WBC (Perox) 12.55
[2016-10-09 04:59] LABS: INR 1.2 (<1.1); Prothrombin Time 11.6 sec (9.0-12.0)
[2016-10-09 05:00] LABS: Ionized Calcium 4.9 mg/dL (4.5-5.3)
[2016-10-09 05:08] LABS: ALT 66 U/L (9-52); AST 137 U/L (14-36); Alkaline Phosphatase 73 U/L (38-126); Anion Gap 9 mmol/L; Blood Urea Nitrogen 14 mg/dL (7-17); Calcium 8.4 mg/dL (8.4-10.2); Carbon Dioxide 30 mmol/L (22-30); Chloride 100 mmol/L (98-107); Glucose 90 mg/dL (74-99); Magnesium 2.1 mg/dL (1.6-2.3); Non-African American GFR(MDRD) >60 (>60 ml/min/1.73 sqM); Phosphorous 2.1 mg/dL (2.5-4.5); Potassium 4.1 mmol/L (3.5-5.1); Sodium 139 mmol/L (137-145); Total Bilirubin 0.8 mg/dL (0.2-1.3); Total Protein 5.5 g/dL (6.3-8.2)
[2016-10-09 05:09] LABS: Glucose,Whole Blood 108 mg/dL (75-99)
[2016-10-09 06:17] LABS: Glucose,Whole Blood 120 mg/dL (75-99)
--- NOTE | 2016-10-09 06:32 | PN ---
DATE OF SERVICE: 10/08/2016 This 66-year-old woman who was admitted with chest pain, acute non-ST segment elevation myocardial infarction, had cardiac catheterization and subsequently had CABG. No chest pain or palpitation. No fever. Patient is extubated at this time. On exam, alert and oriented x3. Pulse is 106, blood pressure 134/59, respiratory rate 20, temperature normal, pulse ox 98% on 2 L. HEENT: Conjunctivae normal. NECK: No jugular venous distention. CARDIOVASCULAR: S1 and S2, muffled. No S3, no S4. RESPIRATORY: Breath sounds diminished at the bases. A few scattered rhonchi and crackles. ABDOMEN: Soft, nontender. LEGS: No edema, no swelling. NERVOUS SYSTEM: No focal deficits. LABS: Hemoglobin 8.9. Other labs are noted. ASSESSMENT: 1. Chest pain, possible acute non-ST segmental elevation myocardial infarction, status post cardiac catheterization as well as 3-vessel coronary artery disease, status post CABG. 2. Congestive heart failure with chronic systolic dysfunction, ejection fraction less than 20% with possible ischemic cardiomyopathy. 3. Mild valve abnormalities including mild aortic stenosis, mitral calcification, mitral regurgitation on the 2-D echo. 4. Left bundle branch block on EKG. 5. Troponin elevated to 4.260 on admission. 6. Hyperlipidemia. 7. Increased random blood sugar. 8. Increased WBC, possibly to reactive. 9. Asthma history. 10. History of gastroesophageal reflux disease. 11. Hypertension. 12. Hypothyroidism. 13. History of breast cancer. 14. History of right lung nodule. 15. History of cholecystectomy. 16. History of bone marrow transplant in 1994. 17. FULL CODE. 18. Anemia, postoperative as expected, multifactorial. RECOMMENDATIONS AND DISCUSSION: This 66-year-old woman who presented after surgery at this time recommend to continue current medications. Continue with monitoring and symptomatic treatment. I would recommend Accu-Cheks a.c. and at bedtime. Continue with coverage. Otherwise, repeat labs, incentive spirometry, DVT prophylaxis. Will follow the patient closely with Cardiothoracic Surgery. Further recommendations to follow.
[2016-10-09 07:21] LABS: Glucose,Whole Blood 124 mg/dL (75-99)
[2016-10-09] MEDS: SYMBICORT 160-4.5 MCG INHALER INHALATION SCH ×2 (07:32→19:15)
--- NOTE | 2016-10-09 08:20 | PN ---
Mrs. Kim is a 66-year-old female who underwent coronary artery bypass grafting with single coronary artery bypass BRAR to the LAD. She is doing well this morning. She is extubated, balloon pump has been removed. She denies any chest pain. Hemodynamically, she is stable. She is on Primacor but off for the Levophed. She is in sinus mechanism. There is no episodes of ventricle ectopic activity. She continues to be on Lipitor 10 mg daily, aspirin once a day, carvedilol 3.125 mg twice a day, Plavix 75 mg daily in addition to IV Melanin. PHYSICAL EXAMINATION: Blood pressure 120/50 with a heart rate in the low 100 hundreds. LUNGS: Clear anteriorly. HEART: Regular rate and rhythm. S1, S2, no rub appreciated. ABDOMEN: Soft, nontender. EXTREMITIES: No edema. FemStop in place. Lab data revealed a BUN and creatinine of 11 and 0. and 0.8. Potassium 4.4. Hemoglobin of 8.9. IMPRESSION: 1. Status post coronary artery bypass grafting with single left internal mammary artery to the left anterior descending coronary artery. 2. Severe cardiomyopathy. 3. History of metastatic breast cancer, status post mastectomy, radiation stem cell transplant. 4. Hyperlipidemia. RECOMMENDATION: From the cardiac standpoint, we will continue on the present therapy. Patient used to be on losartan and Toprol XL in the past, probably if her pressure is stable, we will try to go back on that. I am hopeful we will see improvement in her left ventricular systolic function with the revascularization.
[2016-10-09] MEDS: LACTATED RINGERS 1,000 ML IV SCH (08:44)
[2016-10-09] MEDS: CARVEDILOL 3.125 MG TAB PO SCH ×2 (08:45→17:26)
[2016-10-09] MEDS: HEPARIN SODIUM,PORCINE 5,000 UNIT/ML 1 ML VIAL SQ SCH ×2 (08:45→16:31)
[2016-10-09] MEDS: methylPREDNISolone SOD SUCCI 40 MG/ML 1 ML VIAL IV SCH ×2 (08:45→21:27)
[2016-10-09] MEDS: MUPIROCIN 2% OINT 22 GM TUBE NASAL SCH ×2 (08:45→21:28)
[2016-10-09] MEDS: ASPIRIN 325 MG TAB PO SCH (08:45)
[2016-10-09] MEDS: CLOPIDOGREL 75 MG TAB PO SCH (08:46)
[2016-10-09 09:11] LABS: Glucose,Whole Blood 107 mg/dL (75-99)
--- NOTE | 2016-10-09 09:18 | XR ---
EXAMINATION TYPE: XR chest 1V portable DATE OF EXAM: 10/09/2016 6:39 AM COMPARISON: 10/08/2016 HISTORY: Postop TECHNIQUE: Single frontal view of the chest is obtained. FINDINGS: Postsurgical changes seen. Left-sided chest tube and mediastinal drain noted [place] cat heter seen. IMPRESSION: 1. Stable cardiomegaly and postoperative change.
[2016-10-09] MEDS: MILRINONE-D5W PMX 20 MG in DEXTROSE/WATER 1 100ML.BAG IV SCH (10:18)
[2016-10-09 10:26] LABS: Glucose,Whole Blood 241 mg/dL (75-99)
[2016-10-09 11:28] LABS: Glucose,Whole Blood 501 mg/dL (75-99)
[2016-10-09 11:30] LABS: Glucose,Whole Blood 184 mg/dL (75-99)
--- NOTE | 2016-10-09 11:39 | P.PN ---
<Robert Weiner - Last Filed: 10/09/16 11:14> Progress Note - Text CV Surgery Nursing POD: #2, urgent coronary artery bypass graft 1 utilizing the left internal mammary artery to the left anterior descending coronary artery, insertion of intra-aortic balloon pump, transesophageal echocardiogram and epi-aortic ultrasonography. Patient awake and alert, sitting in chair, no acute distress noted, no specific complaints. Vital Signs: Afebrile , T-max 99.2F Vital Signs - 24 hr 10/08/16 10/08/16 10/08/16 11:30 12:00 13:00 Temperature Pulse Rate 105 H 108 H 106 H Respiratory 26 H 17 20 Rate O2 Sat by Pulse 99 98 98 Oximetry 10/08/16 10/08/16 10/08/16 14:00 15:00 15:08 Temperature Pulse Rate 109 H 109 H Respiratory 20 21 Rate O2 Sat by Pulse 99 99 100 Oximetry 10/08/16 10/08/16 10/08/16 16:00 17:00 18:00 Temperature Pulse Rate 108 H 112 H 109 H Respiratory 18 18 Rate O2 Sat by Pulse 99 98 98 Oximetry 10/08/16 10/08/16 10/08/16 19:00 20:00 21:00 Temperature Pulse Rate 109 H 103 H 101 H Respiratory Rate O2 Sat by Pulse 98 98 99 Oximetry 10/08/16 10/08/16 10/08/16 21:45 22:00 22:15 Temperature Pulse Rate 103 H 102 H 100 Respiratory Rate O2 Sat by Pulse 99 99 98 Oximetry 10/08/16 10/08/16 10/08/16 22:30 22:45 23:00 Temperature Pulse Rate 99 99 102 H Respiratory Rate O2 Sat by Pulse 98 98 98 Oximetry 10/08/16 10/08/16 10/09/16 23:15 23:30 00:00 Temperature Pulse Rate 100 99 103 H Respiratory Rate O2 Sat by Pulse 98 98 98 Oximetry 10/09/16 10/09/16 10/09/16 01:00 02:00 03:00 Temperature Pulse Rate 101 H 98 98 Respiratory Rate O2 Sat by Pulse 98 99 98 Oximetry 10/09/16 10/09/16 10/09/16 04:00 05:00 06:00 Temperature Pulse Rate 104 H 99 99 Respiratory Rate O2 Sat by Pulse 98 98 98 Oximetry 01/12/2110/09/16 10/09/16 07:00 07:34 08:00 Temperature 99.2 F Pulse Rate 98 99 Respiratory 17 Rate O2 Sat by Pulse 98 99 Oximetry 10/09/16 10/09/16 10/09/16 09:00 10:00 11:00 Temperature Pulse Rate 105 H 107 H 106 H Respiratory 20 29 H 23 Rate O2 Sat by Pulse 99 98 97 Oximetry ABP, PAP, CO, CI - Last 8 Hours Arterial Blood Pressure 129/51 Arterial Blood Pressure 138/56 Arterial Blood Pressure 128/45 Arterial Blood Pressure 123/51 Arterial Blood Pressure 112/55 Arterial Blood Pressure 128/57 Arterial Blood Pressure 120/57 Arterial Blood Pressure 114/60 Pulmonary Artery Pressure 38/21 Pulmonary Artery Pressure 41/23 Pulmonary Artery Pressure 38/20 Pulmonary Artery Pressure 30/15 Pulmonary Artery Pressure 29/17 Pulmonary Artery Pressure 38/21 Pulmonary Artery Pressure 39/23 Pulmonary Artery Pressure 47/28 Cardiac Output 4.2 Cardiac Output 3.9 Cardiac Output 5.1 Cardiac Output 5.1 Cardiac Output 5.1 Cardiac Output 5.1 Cardiac Index 2.3 Cardiac Index 2.1 Cardiac Index 2.8 Labs: Short CBC 10/09/16 Range/Units 04:10 WBC 12.5 H (3.8-10.6) k/uL Hgb 9.1 L (11.4-16.0) gm/dL Hct 28.4 L (34.0-46.0) % Plt Count 143 L (150-450) k/uL Neutrophils # 11.0 H (1.3-7.7) k/uL BMP 10/08/16 10/09/16 16:20 04:10 Sodium 139 Potassium 3.9 4.1 Chloride 100 Carbon Dioxide 30 BUN 14 Creatinine 0.81 Glucose 90 Calcium 8.4 Liver Function 10/09/16 Range/Units 04:10 Total Bilirubin 0.8 (0.2-1.3) mg/dL AST 137 H (14-36) U/L ALT 66 H (9-52) U/L Alkaline Phosphatase 73 (38-126) U/L Albumin 3.1 L (3.5-5.0) g/dL IV Fluids: Insulin drip at 5 units per hour, milrinone was DC'd early this morning Cardiac output: 4.2 L/m Cardiac index: 2.3 L/m Pulmonary artery pressures: 34/18 CVP: 9 Lungs: Respirations are even and nonlabored, breath sounds diminished bilateral bases O2 sat: 97% on 2 L oxygen delivered via nasal cannula I/S: Reinforced the importance of regular use of the incentive spirometer. Patient gave return demonstration of proper use of the incentive spirometer and verbalized her understanding of its importance and her intent to make regular use of it. Heart: S1S2, regular rate and rhythm, bedside telemetry shows a sinus tachycardia with a rate of about 105 bpm. Sternum stable, chest incision clean with silverlon dressing clean and dry. Abdomen: Soft, nontender, Positive bowel sounds present in all 4 quadrants. CBGs: 107-241 mg/dL U/O: Adequate (635 mL over the last 8 hours) via Velazquez catheter to dependent drainage. Chest Tubes: Mediastinal chest tubes without visible air leak and 130 mL of serosanguineous drainage over the last 8 hours. Left pleural chest tube without visible air leak and with 90 mL of serosanguineous drainage over the last 8 hours. Intake & Output 10/07/16 10/08/16 10/09/16 10/10/16 06:59 06:59 06:59 06:59 Intake Total 6293.154 7195.31 2749.869 576.818 Output Total 1750 2550 2555 280 Balance -298.881 741.31 194.869 296.818 Weight 77.7 kg 87.2 kg 87.1 kg Active Medications Active Medications Acetaminophen/Hydrocodone Bitart ([place] 5-325) 1 each PO Q4HR PRN PRN Reason: Pain Last Admin: 10/08/16 21:23 Dose: 1 each Acetaminophen/Hydrocodone Bitart ([place] 5-325) 2 each PO Q4HR PRN PRN Reason: Pain Alprazolam (Xanax) 0.25 mg PO Q6HR PRN PRN Reason: Mild Anxiety Last Admin: 10/06/16 08:13 Dose: 0.25 mg Alprazolam (Xanax) 0.5 mg PO Q6HR PRN PRN Reason: Moderate Anxiety Aspirin (Aspirin) 325 mg PO DAILY [facility] Last Admin: 10/09/16 08:45 Dose: 325 mg Bisacodyl (Dulcolax) 10 mg RECTAL DAILY PRN PRN Reason: Constipation Budesonide/Formoterol Fumarate (Symbicort 160-4.5 Mcg Inhaler) 2 puff INHALATION RT-BID [facility] Last Admin: 10/09/16 07:32 Dose: 2 puff Carvedilol (Coreg) 3.125 mg PO BID-W/MEALS [facility] Last Admin: 10/09/16 08:45 Dose: 3.125 mg Clopidogrel Bisulfate (Plavix) 75 mg PO DAILY [facility] Last Admin: 10/09/16 08:46 Dose: 75 mg Heparin Sodium (Porcine) (Heparin) 5,000 unit SQ Q8HR [facility] Last Admin: 10/09/16 08:45 Dose: 5,000 unit Albumin Human 250 ml/ IV (Solution) 250 mls @ 250 mls/hr IVPB Q1HR PRN PRN Reason: For Volume Stop: 10/09/16 15:09 Lactated Ringer's (Lactated Ringers) 1,000 mls @ 50 mls/hr IV .Q20H [facility] Last Admin: 10/09/16 08:44 Dose: 50 mls/hr Propofol 500 mg/ IV Solution 50 mls @ 0 mls/hr IV .Q0M [facility]; Titrate PRN Reason: Protocol Insulin Human Regular 100 unit (/ Sodium Chloride) 101 mls @ 0 mls/hr IV .Q0M [facility]; Per Protocol PRN Reason: Protocol Last Titration: 10/09/16 10:24 Dose: 4.95 units/hr, 5 mls/hr Levothyroxine Sodium (Synthroid) 50 mcg PO HS [facility] Last Admin: 10/08/16 21:22 Dose: 50 mcg Methylprednisolone Sodium Succinate (Solu-Medrol) 40 mg IV Q12HR [facility] Last Admin: 10/09/16 08:45 Dose: 40 mg Miscellaneous Information (Magnesium Per Protocol) 1 each MISCELLANE DAILY PRN ; Protocol PRN Reason: Per Protocol Miscellaneous Information (Phosphorus Per Protocol) 1 each MISCELLANE DAILY PRN ; Protocol PRN Reason: Per Protocol Miscellaneous Information (Potassium Per Protocol) 1 each MISCELLANE DAILY PRN ; Protocol PRN Reason: Per Protocol Mupirocin (Bactroban Oint) 1 applic NASAL BID [facility] Stop: 10/11/16 21:01 Last Admin: 10/09/16 08:45 Dose: 1 applic Nitroglycerin (Nitrostat) 0.4 mg SUBLINGUAL Q5M PRN PRN Reason: Chest Pain Ondansetron HCl (Zofran) 4 mg IVP Q6HR PRN PRN Reason: Nausea And Vomiting Pantoprazole Sodium (Protonix) 40 mg PO [facility] Last Admin: 10/08/16 21:23 Dose: 40 mg Plan: Status post CABG postop day #2. Good progress Continue aggressive pulmonary toilet utilizing incentive spirometry, coughing and deep breathing, inhalation treatments per respiratory therapy department. Continue to increase activity as tolerated. Good cardiac index off pressors, will DC [place] this afternoon. Chest x-ray shows some haziness in the left base. Minimal chest tube drainage. <Christopher Gibbons - Last Filed: 10/09/16 18:19> Progress Note - Text The patient was seen and examined. I agree with the above assessment and plan. Her Primacor was weaned off this morning. Her [place]-Petty catheter was discontinued. Drainage from her mediastinal chest tubes has been minimal. We will remove these tubes this evening. We will plan on removing the pleural chest tube tomorrow. Her Velazquez catheter will be discontinued. I'm increasing her dose of Coreg. We will add Colace and Mucomyst to her medications. She was out of bed this afternoon. She still has secretions but is saturating well on 2 L nasal cannula. She will likely be transferred to selective care tomorrow.
[2016-10-09 12:36] LABS: Glucose,Whole Blood 133 mg/dL (75-99)
--- NOTE | 2016-10-09 12:53 | P.PN ---
Subjective This is a very pleasant 66-year-old female patient who follows with Dr. Arechiga as her primary care physician. She has a history of metastatic breast cancer, status post bilateral mastectomy/radiation and previous stem cell transplant. She also has a history of gastroesophageal reflux disease, chronic cough related to radiation pneumonitis, history of BRCA gene positive, bilateral oophorectomy, history of lymphoma. She also had a small left upper lobe nodule in the status post wedge resection. She is a lifelong nonsmoker. He presented here on 10/05/2016 as a transfer from [facility] for myocardial infarction. She'd undergone cardiac catheterization and was found to have critical stenosis involving the ostium of the left anterior descending artery. There is mild disease in the right coronary artery. There is elevated left ventricular end-diastolic pressure. She was recommended surgical intervention. On 10/07/2016 she had undergone urgent off-pump coronary artery bypass grafting 1 with a BRAR to the LAD and was initially on the intra-aortic balloon pump. She is seen again today 10/09/2016 in the intensive care unit in follow-up. She is currently sitting up in the chair at the bedside. She is awake and alert in no acute distress. She is maintaining good O2 saturations in the mid 90s on 2 L/m per nasal cannula. She has an IV of LR at 50 mL per hour. Her insulin drip has been weaned off. The Primacor has been weaned off. The intra- aortic: Pump was discontinued on 10/08/2015. Her chest x-ray today reveals evidence of bibasilar atelectasis and small effusion on the left. A left chest tube and mediastinal tubes remain in place. Objective - Vital Signs Vital signs: Vital Signs Temp 99.2 F 10/09/16 08:00 Pulse 100 10/09/16 12:00 Resp 23 10/09/16 12:00 BP 89/55 10/07/16 05:38 Pulse Ox 98 10/09/16 12:00 Intake & Output 10/08/16 10/09/16 10/09/16 18:59 06:59 18:59 Intake Total 6327.143 3139.251 664.735 Output Total 1930 625 345 Balance -331.382 526.251 319.735 Weight 87.2 kg 87.1 kg Intake: IV 1046.6 733.6 414 0.9NS Cardiac Output 170 80 60 0.9ns Pressure Bag 126 99 54 ACETAMINOPHEN IV (For NPO 100 ) 1,000 mg In Empty Bag 1 bag @ 400 mls/hr IVPB Q6HR [facility] Rx#:[id number] Lactated Ringers 1,000 ml 600 550 300 @ 50 mls/hr IV .Q20H [facility] Rx#:[id number] Milrinone-D5w Pmx 20 mg 50.6 4.6 In Dextrose/Water 1 100ml .bag @ 0.375 MCG/KG/MIN 8 .74 mls/hr IV .Q85I00H [facility] Rx#:[id number] Intake, IV Titration 2.018 17.651 10.735 Amount Insulin Regular 100 unit 2.018 17.651 10.735 In Sodium Chloride 0.9% 100 ml @ Per Protocol IV .Q0M [facility] Rx#:[id number] Oral 550 400 240 Output: Chest Tube Drainage 280 170 70 Left Pleural 90 70 20 Mediastinal X 2 190 100 50 Urine 1650 455 225 Emesis 50 Other: Voiding Method Indwelling Catheter Indwelling Catheter Indwelling Catheter ABP, PAP, CO, CI - Last Documented Arterial Blood Pressure 108/48 Pulmonary Artery Pressure 38/21 Cardiac Output 5.2 Cardiac Index 2.8 - Exam GENERAL EXAM: Alert, comfortable in no apparent distress. HEAD: Normocephalic. EYES: Normal reaction of pupils, equal size. NOSE: Clear with pink turbinates. THROAT: No erythema or exudates. NECK: No masses, no JVD. Right IJ [place]Petty in place. CHEST: Sternal dressing is dry and intact. LUNGS: Equal air entry with few scattered rhonchi, basilar crackles. Chest tubes remain in place.. CVS: S1 and S2 normal with no audible murmurs, regular rhythm. ABDOMEN: No hepatosplenomegaly, normal bowel sounds, no guarding or rigidity. SPINE: No scoliosis or deformity SKIN: No rashes CENTRAL NERVOUS SYSTEM: No focal deficits, tone is normal in all 4 extremities. Extremities: There is trace peripheral edema. No clubbing, no cyanosis. Peripheral pulses are intact. - Labs CBC & Chem 7: 10/09/16 04:10 10/09/16 04:10 Labs: Abnormal Lab Results - Last 24 Hours (Table) 10/08/16 10/08/16 10/08/16 Range/Units 13:07 14:05 15:16 WBC (3.8-10.6) k/uL RBC (3.80-5.40) m/uL Hgb (11.4-16.0) gm/dL Hct (34.0-46.0) % Plt Count (150-450) k/uL Neutrophils # (1.3-7.7) k/uL Lymphocytes # (1.0-4.8) k/uL POC Glucose (mg/dL) 109 H 105 H 102 H (75-99) mg/dL Phosphorus (2.5-4.5) mg/dL AST (14-36) U/L ALT (9-52) U/L Total Protein (6.3-8.2) g/dL Albumin (3.5-5.0) g/dL 10/08/16 10/08/16 10/08/16 Range/Units 16:58 18:02 19:05 WBC (3.8-10.6) k/uL RBC (3.80-5.40) m/uL Hgb (11.4-16.0) gm/dL Hct (34.0-46.0) % Plt Count (150-450) k/uL Neutrophils # (1.3-7.7) k/uL Lymphocytes # (1.0-4.8) k/uL POC Glucose (mg/dL) 107 H 108 H 115 H (75-99) mg/dL Phosphorus (2.5-4.5) mg/dL AST (14-36) U/L ALT (9-52) U/L Total Protein (6.3-8.2) g/dL Albumin (3.5-5.0) g/dL 10/08/16 10/08/16 10/08/16 Range/Units 20:24 21:11 22:09 WBC (3.8-10.6) k/uL RBC (3.80-5.40) m/uL Hgb (11.4-16.0) gm/dL Hct (34.0-46.0) % Plt Count (150-450) k/uL Neutrophils # (1.3-7.7) k/uL Lymphocytes # (1.0-4.8) k/uL POC Glucose (mg/dL) 114 H 112 H 153 H (75-99) mg/dL Phosphorus (2.5-4.5) mg/dL AST (14-36) U/L ALT (9-52) U/L Total Protein (6.3-8.2) g/dL Albumin (3.5-5.0) g/dL 10/08/16 10/09/16 10/09/16 Range/Units 23:07 00:09 01:25 WBC (3.8-10.6) k/uL RBC (3.80-5.40) m/uL Hgb (11.4-16.0) gm/dL Hct (34.0-46.0) % Plt Count (150-450) k/uL Neutrophils # (1.3-7.7) k/uL Lymphocytes # (1.0-4.8) k/uL POC Glucose (mg/dL) 178 H 181 H 155 H (75-99) mg/dL Phosphorus (2.5-4.5) mg/dL AST (14-36) U/L ALT (9-52) U/L Total Protein (6.3-8.2) g/dL Albumin (3.5-5.0) g/dL 10/09/16 10/09/16 10/09/16 Range/Units 04:10 04:10 05:03 WBC 12.5 H (3.8-10.6) k/uL RBC 3.04 L (3.80-5.40) m/uL Hgb 9.1 L (11.4-16.0) gm/dL Hct 28.4 L (34.0-46.0) % Plt Count 143 L (150-450) k/uL Neutrophils # 11.0 H (1.3-7.7) k/uL Lymphocytes # 0.8 L (1.0-4.8) k/uL POC Glucose (mg/dL) 108 H (75-99) mg/dL Phosphorus 2.1 L (2.5-4.5) mg/dL AST 137 H (14-36) U/L ALT 66 H (9-52) U/L Total Protein 5.5 L (6.3-8.2) g/dL Albumin 3.1 L (3.5-5.0) g/dL 10/09/16 10/09/16 10/09/16 Range/Units 06:16 07:19 09:09 WBC (3.8-10.6) k/uL RBC (3.80-5.40) m/uL Hgb (11.4-16.0) gm/dL Hct (34.0-46.0) % Plt Count (150-450) k/uL Neutrophils # (1.3-7.7) k/uL Lymphocytes # (1.0-4.8) k/uL POC Glucose (mg/dL) 120 H 124 H 107 H (75-99) mg/dL Phosphorus (2.5-4.5) mg/dL AST (14-36) U/L ALT (9-52) U/L Total Protein (6.3-8.2) g/dL Albumin (3.5-5.0) g/dL 10/09/16 10/09/16 10/09/16 Range/Units 10:22 11:27 11:29 WBC (3.8-10.6) k/uL RBC (3.80-5.40) m/uL Hgb (11.4-16.0) gm/dL Hct (34.0-46.0) % Plt Count (150-450) k/uL Neutrophils # (1.3-7.7) k/uL Lymphocytes # (1.0-4.8) k/uL POC Glucose (mg/dL) 241 H 501 H 184 H (75-99) mg/dL Phosphorus (2.5-4.5) mg/dL AST (14-36) U/L ALT (9-52) U/L Total Protein (6.3-8.2) g/dL Albumin (3.5-5.0) g/dL 10/09/16 Range/Units 12:33 WBC (3.8-10.6) k/uL RBC (3.80-5.40) m/uL Hgb (11.4-16.0) gm/dL Hct (34.0-46.0) % Plt Count (150-450) k/uL Neutrophils # (1.3-7.7) k/uL Lymphocytes # (1.0-4.8) k/uL POC Glucose (mg/dL) 133 H (75-99) mg/dL Phosphorus (2.5-4.5) mg/dL AST (14-36) U/L ALT (9-52) U/L Total Protein (6.3-8.2) g/dL Albumin (3.5-5.0) g/dL Microbiology - Last 24 Hours (Table) 10/07/16 00:30 Urine Culture - Final Urine,Voided Assessment and Plan Plan: Impression: #1 coronary artery disease status post urgent off-pump coronary artery bypass graft surgery with a BRAR to the LAD. Postoperative day #2. #2 Severe ischemic cardiomyopathy with estimated ejection fraction less than 20% . #3 Left bundle branch block pattern on EKG. #4 History of breast cancer status post bilateral mastectomy/radiation, BRCA gene positive. #5 Chronic cough secondary to radiation pneumonitis. #6 Stem cell transplant in 1994. #7 Hypothyroidism. #8 Hypertension. #9 Gastroesophageal reflux disease. Plan: The patient was seen and evaluated by Dr. Mayen. Her chest x-ray, and labs were reviewed. She is currently stable from the pulmonary standpoint. We'll repeat her chest x-ray in the a.m. We'll continue with her bronchodilators, Symbicort and Solu-Medrol. She remains on heparin for DVT prophylaxis. We will increase her activity as tolerated. We'll continue to follow make further recommendations based on her clinical status.
[2016-10-09 13:35] LABS: Glucose,Whole Blood 121 mg/dL (75-99)
[2016-10-09] MEDS: HYDROcodone/APAP 5-325MG 1 EACH TAB PO PRN ×2 (15:02→23:24)
[2016-10-09 15:03] LABS: Glucose,Whole Blood 141 mg/dL (75-99)
[2016-10-09 16:30] LABS: Glucose,Whole Blood 131 mg/dL (75-99)
--- NOTE | 2016-10-09 18:03 | PN ---
DATE OF SERVICE: 10/09/2016 This 66-year-old woman who was admitted after acute myocardial infarction underwent CAD, CABG. The patient was extubated. No chest pain. No palpitation. Chest tube is in place. No fever. Blood sugar is elevated and insulin drip is being utilized. On exam, alert and oriented x3. Pulse 104, blood pressure 116/54, respiratory rate 22, temperature normal, pulse ox 99% on 2 L. HEENT: Conjunctivae normal. NECK: No jugular venous distention. CARDIOVASCULAR SYSTEM: S1, S2 muffled. RESPIRATORY: Breath sounds diminished at the bases. A few scattered rhonchi and crackles. ABDOMEN: Soft, nontender. LEGS: No edema. No swelling. NERVOUS SYSTEM: No focal deficit. LABS: WBC 12.5, hemoglobin is 9.1. Albumin is 3.1. Hepatitis panel is negative. ASSESSMENT: 1. Chest pain, possible acute [id number]-elevation myocardial infarction, present on admission, status post cardiac catheterization as well as left anterior descending coronary artery disease, status post coronary artery bypass grafting. 2. History of congestive heart failure with chronic systolic dysfunction; ejection fraction less than 20%; with possible ischemic cardiomyopathy. 3. Mild valvular abnormalities, including mild aortic stenosis, mitral calcification and mitral regurgitation on the 2-D echo. 4. Left bundle branch block on EKG. 5. Troponin elevated up to 4.260 on admission. 6. Hyperlipidemia. 7. Increased random blood sugar. 8. Increased white count, possibly reactive. 9. Asthma history. 10. History of gastroesophageal reflux disease. 11. Hypertension. 12. Hypothyroidism. 13. History of breast cancer. 14. History of right lung nodule. 15. History of cholecystectomy. 16. History of bone marrow transplant in 1994. 17. Anemia, postoperative, expected, multifactorial. 18. FULL CODE. RECOMMENDATIONS AND DISCUSSION: In this 66-year-old woman who presented with multiple complex medical issues, we will monitor the patient closely, continue the current medications, continue symptomatic treatment. Otherwise, incentive spirometry. Closely monitor. Continue to monitor the blood sugars. Further recommendations to follow.
[2016-10-09] MEDS ORDERED: CARVEDILOL 3.125 MG TAB PO STA (18:15)
[2016-10-09 18:25] LABS: Glucose,Whole Blood 145 mg/dL (75-99)
[2016-10-09] MEDS: DOCUSATE 100 MG CAP PO SCH (18:46)
[2016-10-09 19:07] LABS: Glucose,Whole Blood 173 mg/dL (75-99)
--- NOTE | 2016-10-09 19:11 | P.PN ---
Subjective Principal diagnosis: Coronary artery disease This is a 66-year-old female who was admitted with chest pain and evidence of non-ST elevation myocardial infarctions. Patient had a cardiac catheterization and subsequently had bypass surgery to the left anterior descending coronary artery. Patient is sitting in the chair. She denies any chest pain. She doesn 't appear to be in acute distress. She is maintaining adequate blood pressure. Her urine output is good. Overall she is progressing steadily Objective - Vital Signs Vital signs: Vital Signs Temp 98.7 F 10/09/16 16:00 Pulse 99 10/09/16 19:00 Resp 20 10/09/16 19:00 BP 89/55 10/07/16 05:38 Pulse Ox 100 10/09/16 19:00 Intake & Output 10/09/16 10/09/16 10/10/16 06:59 18:59 06:59 Intake Total 4267.235 1468.527 57.05 Output Total 625 545 35 Balance 526.251 941.527 22.05 Weight 87.1 kg Intake: IV 733.6 750 56 0.9NS Cardiac Output 80 60 0.9ns Pressure Bag 99 90 6 Lactated Ringers 1,000 ml 550 600 50 @ 50 mls/hr IV .Q20H [facility] Rx#:[id number] Milrinone-D5w Pmx 20 mg 4.6 In Dextrose/Water 1 100ml .bag @ 0.375 MCG/KG/MIN 8 .74 mls/hr IV .[id number] [facility] Rx#:[id number] Intake, IV Titration 17.651 16.527 1.05 Amount Insulin Regular 100 unit 17.651 16.527 1.05 In Sodium Chloride 0.9% 100 ml @ Per Protocol IV .Q0M [facility] Rx#:[id number] Oral 400 720 Output: Chest Tube Drainage 170 90 0 Left Pleural 70 30 0 Mediastinal X 2 100 60 Urine 455 405 35 Emesis 50 Other: Voiding Method Indwelling Catheter Indwelling Catheter ABP, PAP, CO, CI - Last Documented Arterial Blood Pressure 114/55 Pulmonary Artery Pressure 38/21 Cardiac Output 5.2 Cardiac Index 2.8 - Exam GENERAL EXAM: Patient is alert and oriented and doesn't appear to be in any acute distress HEENT: Normocephalic. Normal reaction of pupils, equal size, normal range of extraocular motion. No erythema or exudates in the throat. NECK: No masses, no nuchal rigidity. CHEST: Postsurgical LUNGS: Equal air entry with no crackles or wheeze. HEART: S1 and S2 normal with no audible mumurs or gallops. Regular rhythm, femorals equal on both sides.. ABDOMEN: No hepatosplenomegaly, normal bowel sounds, no guarding or rigidity. SKIN: No rashes CENTRAL NERVOUS SYSTEM: No focal deficits. EXTREMITIES: No cyanosis, clubbing or edema. - Labs CBC & Chem 7: 10/09/16 04:10 10/09/16 04:10 Labs: Abnormal Lab Results - Last 24 Hours (Table) 10/08/16 10/08/16 10/08/16 Range/Units 19:05 20:24 21:11 WBC (3.8-10.6) k/uL RBC (3.80-5.40) m/uL Hgb (11.4-16.0) gm/dL Hct (34.0-46.0) % Plt Count (150-450) k/uL Neutrophils # (1.3-7.7) k/uL Lymphocytes # (1.0-4.8) k/uL POC Glucose (mg/dL) 115 H 114 H 112 H (75-99) mg/dL Phosphorus (2.5-4.5) mg/dL AST (14-36) U/L ALT (9-52) U/L Total Protein (6.3-8.2) g/dL Albumin (3.5-5.0) g/dL 10/08/16 10/08/16 10/09/16 Range/Units 22:09 23:07 00:09 WBC (3.8-10.6) k/uL RBC (3.80-5.40) m/uL Hgb (11.4-16.0) gm/dL Hct (34.0-46.0) % Plt Count (150-450) k/uL Neutrophils # (1.3-7.7) k/uL Lymphocytes # (1.0-4.8) k/uL POC Glucose (mg/dL) 153 H 178 H 181 H (75-99) mg/dL Phosphorus (2.5-4.5) mg/dL AST (14-36) U/L ALT (9-52) U/L Total Protein (6.3-8.2) g/dL Albumin (3.5-5.0) g/dL 10/09/16 10/09/16 10/09/16 Range/Units 01:25 04:10 04:10 WBC 12.5 H (3.8-10.6) k/uL RBC 3.04 L (3.80-5.40) m/uL Hgb 9.1 L (11.4-16.0) gm/dL Hct 28.4 L (34.0-46.0) % Plt Count 143 L (150-450) k/uL Neutrophils # 11.0 H (1.3-7.7) k/uL Lymphocytes # 0.8 L (1.0-4.8) k/uL POC Glucose (mg/dL) 155 H (75-99) mg/dL Phosphorus 2.1 L (2.5-4.5) mg/dL AST 137 H (14-36) U/L ALT 66 H (9-52) U/L Total Protein 5.5 L (6.3-8.2) g/dL Albumin 3.1 L (3.5-5.0) g/dL 10/09/16 10/09/16 10/09/16 Range/Units 05:03 06:16 07:19 WBC (3.8-10.6) k/uL RBC (3.80-5.40) m/uL Hgb (11.4-16.0) gm/dL Hct (34.0-46.0) % Plt Count (150-450) k/uL Neutrophils # (1.3-7.7) k/uL Lymphocytes # (1.0-4.8) k/uL POC Glucose (mg/dL) 108 H 120 H 124 H (75-99) mg/dL Phosphorus (2.5-4.5) mg/dL AST (14-36) U/L ALT (9-52) U/L Total Protein (6.3-8.2) g/dL Albumin (3.5-5.0) g/dL 10/09/16 10/09/16 10/09/16 Range/Units 09:09 10:22 11:27 WBC (3.8-10.6) k/uL RBC (3.80-5.40) m/uL Hgb (11.4-16.0) gm/dL Hct (34.0-46.0) % Plt Count (150-450) k/uL Neutrophils # (1.3-7.7) k/uL Lymphocytes # (1.0-4.8) k/uL POC Glucose (mg/dL) 107 H 241 H 501 H (75-99) mg/dL Phosphorus (2.5-4.5) mg/dL AST (14-36) U/L ALT (9-52) U/L Total Protein (6.3-8.2) g/dL Albumin (3.5-5.0) g/dL 10/09/16 10/09/16 10/09/16 Range/Units 11:29 12:33 13:32 WBC (3.8-10.6) k/uL RBC (3.80-5.40) m/uL Hgb (11.4-16.0) gm/dL Hct (34.0-46.0) % Plt Count (150-450) k/uL Neutrophils # (1.3-7.7) k/uL Lymphocytes # (1.0-4.8) k/uL POC Glucose (mg/dL) 184 H 133 H 121 H (75-99) mg/dL Phosphorus (2.5-4.5) mg/dL AST (14-36) U/L ALT (9-52) U/L Total Protein (6.3-8.2) g/dL Albumin (3.5-5.0) g/dL 10/09/16 10/09/16 10/09/16 Range/Units 15:01 16:28 18:24 WBC (3.8-10.6) k/uL RBC (3.80-5.40) m/uL Hgb (11.4-16.0) gm/dL Hct (34.0-46.0) % Plt Count (150-450) k/uL Neutrophils # (1.3-7.7) k/uL Lymphocytes # (1.0-4.8) k/uL POC Glucose (mg/dL) 141 H 131 H 145 H (75-99) mg/dL Phosphorus (2.5-4.5) mg/dL AST (14-36) U/L ALT (9-52) U/L Total Protein (6.3-8.2) g/dL Albumin (3.5-5.0) g/dL 10/09/16 Range/Units 19:05 WBC (3.8-10.6) k/uL RBC (3.80-5.40) m/uL Hgb (11.4-16.0) gm/dL Hct (34.0-46.0) % Plt Count (150-450) k/uL Neutrophils # (1.3-7.7) k/uL Lymphocytes # (1.0-4.8) k/uL POC Glucose (mg/dL) 173 H (75-99) mg/dL Phosphorus (2.5-4.5) mg/dL AST (14-36) U/L ALT (9-52) U/L Total Protein (6.3-8.2) g/dL Albumin (3.5-5.0) g/dL Assessment and Plan (1) Chest pain Status: Acute (2) Left bundle branch block Status: Acute (3) History of breast cancer Status: Acute (4) GERD (gastroesophageal reflux disease) Status: Acute (5) Hypertension Status: Acute Plan: This patient is status post prior to coronary bypass surgery. Seems to be progressing very well. Hemodynamically stable. Denies any chest pain. Continue incentive spirometry. Possible transfer to telemetry unit within next 24 hours
[2016-10-09] MEDS: ACETYLCYSTEINE 800 MG/4 ML VIAL INHALATION SCH (19:16)
[2016-10-09] MEDS: IPRATROPIUM-ALBUTEROL 3 ML NEB INHALATION SCH (19:19)
[2016-10-09 20:59] LABS: Glucose,Whole Blood 127 mg/dL (75-99)
[2016-10-09] MEDS: PANTOPRAZOLE 40 MG TABLET PO SCH (21:27)
[2016-10-09] MEDS: LEVOTHYROXINE 50 MCG TAB PO SCH (21:27)
[2016-10-09 22:27] LABS: Glucose,Whole Blood 121 mg/dL (75-99)
[2016-10-09 23:16] LABS: Glucose,Whole Blood 121 mg/dL (75-99)
[2016-10-10] MEDS: HEPARIN SODIUM,PORCINE 5,000 UNIT/ML 1 ML VIAL SQ SCH ×3 (00:42→17:22)
[2016-10-10 01:09] LABS: Glucose,Whole Blood 127 mg/dL (75-99)
[2016-10-10 03:14] LABS: Glucose,Whole Blood 132 mg/dL (75-99)
[2016-10-10 04:15] LABS: Glucose,Whole Blood 131 mg/dL (75-99)
[2016-10-10 05:15] LABS: Glucose,Whole Blood 125 mg/dL (75-99)
[2016-10-10 05:32] LABS: Basophils % (A) 0 %; CH 30.4; CHCM 32.4; Eosinophils % (A) 0 %; HCT 29.3 % (34.0-46.0); HDW 2.85; HGB 9.2 gm/dL (11.4-16.0); Luc # (Auto) 0.09; Luc % (Auto) 1; Lymphocytes % (A) 8 %; MCH 29.7 pg (25.0-35.0); MCHC 31.5 g/dL (31.0-37.0); MCV 94.3 fL (80.0-100.0); Mean Platelet Volume 8.4; Monocytes # (A) 0.6 k/uL (0-1.0); Monocytes % (A) 5 %; Neutrophils # (A) 12.2 k/uL (1.3-7.7); Neutrophils % (A) 87 %; WBC (Perox) 15.22
[2016-10-10 06:24] LABS: ALT 61 U/L (9-52); AST 73 U/L (14-36); Alkaline Phosphatase 77 U/L (38-126); Anion Gap 12 mmol/L; Blood Urea Nitrogen 22 mg/dL (7-17); Calcium 8.9 mg/dL (8.4-10.2); Carbon Dioxide 26 mmol/L (22-30); Chloride 101 mmol/L (98-107); Glucose 130 mg/dL (74-99); Non-African American GFR(MDRD) >60 (>60 ml/min/1.73 sqM); Phosphorous 3.5 mg/dL (2.5-4.5); Potassium 4.5 mmol/L (3.5-5.1); Sodium 139 mmol/L (137-145); Total Bilirubin 0.5 mg/dL (0.2-1.3); Total Protein 5.6 g/dL (6.3-8.2)
[2016-10-10] MEDS: IPRATROPIUM-ALBUTEROL 3 ML NEB INHALATION SCH ×3 (08:07→19:40)
[2016-10-10] MEDS: ACETYLCYSTEINE 800 MG/4 ML VIAL INHALATION SCH ×3 (08:07→19:40)
[2016-10-10] MEDS: SYMBICORT 160-4.5 MCG INHALER INHALATION SCH ×2 (08:07→19:40)
[2016-10-10 08:09] LABS: ABG Base Excess 6.4 mmol/L; ABG HCO3 28 mmol/L (21-25); ABG PCO2 32 mmHg (35-45); ABG PH 7.56 (7.35-7.45); ABG PO2 >420 mmHg (83-108); ABG TCO2 29 mmol/L (19-24)
[2016-10-10 08:10] LABS: ABG Base Excess 4.5 mmol/L; ABG HCO3 28 mmol/L (21-25); ABG PCO2 36 mmHg (35-45); ABG PO2 >420 mmHg (83-108); ABG TCO2 29 mmol/L (19-24)
[2016-10-10 08:12] LABS: ABG Base Excess 2.4 mmol/L; ABG HCO3 27 mmol/L (21-25); ABG Oxygen Saturation 99.9 % (94-97); ABG PCO2 45 mmHg (35-45); ABG PO2 276 mmHg (83-108); ABG TCO2 29 mmol/L (19-24)
[2016-10-10] MEDS: ASPIRIN 325 MG TAB PO SCH (08:12)
[2016-10-10] MEDS: CARVEDILOL 6.25 MG TAB PO SCH ×2 (08:12→17:34)
[2016-10-10] MEDS: methylPREDNISolone SOD SUCCI 40 MG/ML 1 ML VIAL IV SCH ×2 (08:12→21:04)
[2016-10-10] MEDS: CLOPIDOGREL 75 MG TAB PO SCH (08:12)
[2016-10-10] MEDS: DOCUSATE 100 MG CAP PO SCH ×2 (08:12→21:06)
[2016-10-10 08:39] LABS: Glucose,Whole Blood 120 mg/dL (75-99)
--- NOTE | 2016-10-10 09:56 | P.PN ---
Progress Note - Text CV Surgery Nursing POD: #3, urgent off pump coronary artery bypass grafts 1 utilizing left internal mammary artery to left anterior descending coronary artery, insertion of intra-aortic balloon pump, intraoperative transesophageal echocardiogram and epi-aortic ultrasonography. Patient awake and alert, sitting in chair, no acute distress noted, no specific complaints. Vital Signs: Afebrile , T-max 98.7F Vital Signs - 24 hr 10/09/16 10/09/16 10/09/16 10:00 11:00 12:00 Temperature Pulse Rate 107 H 106 H 100 Respiratory 29 H 23 23 Rate O2 Sat by Pulse 98 97 98 Oximetry 10/09/16 10/09/16 10/09/16 13:00 14:00 15:00 Temperature Pulse Rate 104 H 104 H 101 H Respiratory 22 24 20 Rate O2 Sat by Pulse 99 100 99 Oximetry 10/09/16 10/09/16 10/09/16 16:00 16:32 17:00 Temperature 98.7 F Pulse Rate 101 H 100 Respiratory 22 24 Rate O2 Sat by Pulse 97 100 99 Oximetry 10/09/16 10/09/16 10/09/16 18:00 19:00 19:23 Temperature Pulse Rate 103 H 99 100 Respiratory 24 20 Rate O2 Sat by Pulse 100 100 Oximetry 10/09/16 10/09/16 10/09/16 19:34 20:00 21:00 Temperature 98.4 F Pulse Rate 103 H 101 H 102 H Respiratory 24 25 H Rate O2 Sat by Pulse 99 98 Oximetry 10/09/16 10/09/16 10/10/16 22:00 23:00 00:00 Temperature 98 F Pulse Rate 101 H 100 95 Respiratory 18 19 17 Rate O2 Sat by Pulse 99 99 99 Oximetry 10/10/16 10/10/16 10/10/16 01:00 02:00 03:00 Temperature Pulse Rate 89 85 94 Respiratory 14 16 15 Rate O2 Sat by Pulse 99 97 99 Oximetry 10/10/16 10/10/16 10/10/16 04:00 05:00 06:00 Temperature 97.5 F L Pulse Rate 95 90 90 Respiratory 28 H 13 15 Rate O2 Sat by Pulse 98 99 99 Oximetry 10/10/16 10/10/16 10/10/16 07:00 08:08 08:26 Temperature Pulse Rate 91 96 97 Respiratory 14 Rate O2 Sat by Pulse 100 Oximetry ABP, PAP, CO, CI - Last 8 Hours Arterial Blood Pressure 131/62 Arterial Blood Pressure 125/58 Arterial Blood Pressure 129/61 Arterial Blood Pressure 135/69 Arterial Blood Pressure 126/65 Arterial Blood Pressure 104/53 Labs: Short CBC 10/10/16 Range/Units 05:10 WBC 14.0 H (3.8-10.6) k/uL Hgb 9.2 L (11.4-16.0) gm/dL Hct 29.3 L (34.0-46.0) % Plt Count 194 (150-450) k/uL Neutrophils # 12.2 H (1.3-7.7) k/uL BMP 10/10/16 05:10 Sodium 139 Potassium 4.5 Chloride 101 Carbon Dioxide 26 BUN 22 H Creatinine 0.86 Glucose 130 H Calcium 8.9 Liver Function 10/10/16 Range/Units 05:10 Total Bilirubin 0.5 (0.2-1.3) mg/dL AST 73 H (14-36) U/L ALT 61 H (9-52) U/L Alkaline Phosphatase 77 (38-126) U/L Albumin 3.1 L (3.5-5.0) g/dL IV Fluids: LR at 50 mL/h Lungs: Respirations are even and nonlabored, breath sounds essentially clear to auscultation. O2 sat: 100% on 2 L of oxygen delivered via nasal cannula. I/S: 1000 mL, Reinforced the importance of regular use of the incentive spirometer. Patient gave return demonstration of proper use of the incentive spirometer and verbalized her understanding of its importance and her intent to make regular use of the device. Heart: S1S2, regular rate and rhythm. Bedside telemetry shows a normal sinus rhythm without ectopy. Sternum stable, chest incision clean with silverlon dressing clean and dry. Abdomen: Soft, Positive bowel sounds present in all 4 quadrants. No bowel movement since surgery CBGs: 120-173 mg/dL U/O: Velazquez catheter was discontinued last night. No urine output so far. Chest Tubes: Left pleural chest tube without visible air leak and with very minimal drainage. Intake & Output 10/08/16 10/09/16 10/10/16 10/11/16 06:59 06:59 06:59 06:59 Intake Total 3291.31 2749.869 2489.058 53 Output Total 2550 2555 765 10 Balance 741.31 649.587 7717.058 43 Weight 87.2 kg 87.1 kg 89.4 kg Active Medications Acetaminophen/Hydrocodone Bitart ([place] 5-325) 1 each PO Q4HR PRN PRN Reason: Pain Last Admin: 10/09/16 15:02 Dose: 1 each Acetaminophen/Hydrocodone Bitart ([place] 5-325) 2 each PO Q4HR PRN PRN Reason: Pain Last Admin: 10/09/16 23:24 Dose: 2 each Acetylcysteine (Mucomyst) 200 mg INHALATION RT-TID [facility] Last Admin: 10/10/16 08:07 Dose: 200 mg Albuterol/Ipratropium (Duoneb 0.5 Mg-3 Mg/3 Ml Soln) 3 ml INHALATION RT-TID [facility] Last Admin: 10/10/16 08:07 Dose: 3 ml Alprazolam (Xanax) 0.25 mg PO Q6HR PRN PRN Reason: Mild Anxiety Last Admin: 10/06/16 08:13 Dose: 0.25 mg Alprazolam (Xanax) 0.5 mg PO Q6HR PRN PRN Reason: Moderate Anxiety Aspirin (Aspirin) 325 mg PO DAILY [facility] Last Admin: 10/10/16 08:12 Dose: 325 mg Bisacodyl (Dulcolax) 10 mg RECTAL DAILY PRN PRN Reason: Constipation Budesonide/Formoterol Fumarate (Symbicort 160-4.5 Mcg Inhaler) 2 puff INHALATION RT-BID [facility] Last Admin: 10/10/16 08:07 Dose: 2 puff Carvedilol (Coreg) 6.25 mg PO BID-W/MEALS [facility] Last Admin: 10/10/16 08:12 Dose: 6.25 mg Clopidogrel Bisulfate (Plavix) 75 mg PO DAILY [facility] Last Admin: 10/10/16 08:12 Dose: 75 mg Docusate Sodium (Colace) 100 mg PO BID [facility] Last Admin: 10/10/16 08:12 Dose: 100 mg Heparin Sodium (Porcine) (Heparin) 5,000 unit SQ Q8HR [facility] Last Admin: 10/10/16 08:12 Dose: 5,000 unit Lactated Ringer's (Lactated Ringers) 1,000 mls @ 50 mls/hr IV .Q20H [facility] Last Admin: 10/09/16 08:44 Dose: 50 mls/hr Insulin Human Lispro (Humalog) 0 unit SQ [id number] [facility] PRN Reason: Protocol Levothyroxine Sodium (Synthroid) 50 mcg PO [facility] Last Admin: 10/09/16 21:27 Dose: 50 mcg Methylprednisolone Sodium Succinate (Solu-Medrol) 40 mg IV Q12HR [facility] Last Admin: 10/10/16 08:12 Dose: 40 mg Miscellaneous Information (Magnesium Per Protocol) 1 each MISCELLANE DAILY PRN ; Protocol PRN Reason: Per Protocol Miscellaneous Information (Phosphorus Per Protocol) 1 each MISCELLANE DAILY PRN ; Protocol PRN Reason: Per Protocol Miscellaneous Information (Potassium Per Protocol) 1 each MISCELLANE DAILY PRN ; Protocol PRN Reason: Per Protocol Nitroglycerin (Nitrostat) 0.4 mg SUBLINGUAL Q5M PRN PRN Reason: Chest Pain Ondansetron HCl (Zofran) 4 mg IVP Q6HR PRN PRN Reason: Nausea And Vomiting Pantoprazole Sodium (Protonix) 40 mg PO [facility] Last Admin: 10/09/16 21:27 Dose: 40 mg Plan: Status post urgent coronary artery bypass graft day #3 Good progress. Discontinue remaining chest tube. Discontinue Cordis and arterial line. Transfer to stepdown unit. Continue aggressive pulmonary toilet. Continue to increase activity.
--- NOTE | 2016-10-10 11:01 | P.PN ---
Subjective This a 66-year-old female with a history of vomiting bypass grafting. The patient a BRAR to LAD. She is postop day #3. Will have a chest tube removed today. Getting LR at 50 mL an hour. Insulin drip is off. Getting O2 2 L. The patient's feeling well today. Objective - Vital Signs Vital signs: Vital Signs Temp 98.6 F 10/10/16 08:00 Pulse 94 10/10/16 10:00 Resp 16 10/10/16 10:00 BP 89/55 10/07/16 05:38 Pulse Ox 98 10/10/16 10:00 Intake & Output 10/09/16 10/10/16 10/10/16 18:59 06:59 18:59 Intake Total 7539.706 9239.531 212 Output Total 545 220 50 Balance 941.527 782.531 162 Weight 89.4 kg 89.4 kg Intake: IV 750 639 212 0.9NS Cardiac Output 60 0.9ns Pressure Bag 90 39 12 Lactated Ringers 1,000 ml 600 600 200 @ 50 mls/hr IV .Q20H [facility] Rx#:[id number] Intake, IV Titration 16.527 8.531 Amount Insulin Regular 100 unit 16.527 8.531 In Sodium Chloride 0.9% 100 ml @ Per Protocol IV .Q0M [facility] Rx#:[id number] Oral 720 355 Output: Chest Tube Drainage 90 20 50 Left Pleural 30 20 50 Mediastinal X 2 60 Urine 405 200 Emesis 50 Other: Voiding Method Indwelling Catheter Indwelling Catheter ABP, PAP, CO, CI - Last Documented Arterial Blood Pressure 118/55 Pulmonary Artery Pressure 38/21 Cardiac Output 5.2 Cardiac Index 2.8 - Exam No acute distress, oriented 3. HEENT examination is grossly unremarkable. Mixed membranes are moist. No oral lesions. Nasal O2 in place. Neck Supple. Full range of motion. No adenopathy or thyromegaly. Cardiovascular examination reveals regular rhythm rate. S1-S2 normal. No S3- S4 murmur. Lungs are clear breath sounds equal. Abdomen soft bowel sounds are heard. Extremities are intact. - Labs CBC & Chem 7: 10/10/16 05:10 10/10/16 05:10 Labs: Abnormal Lab Results - Last 24 Hours (Table) 10/07/16 10/07/16 10/07/16 Range/Units 09:10 11:34 12:39 WBC (3.8-10.6) k/uL RBC (3.80-5.40) m/uL Hgb (11.4-16.0) gm/dL Hct (34.0-46.0) % Neutrophils # (1.3-7.7) k/uL ABG pH 7.56 H 7.50 H (7.35-7.45) ABG pCO2 32 L (35-45) mmHg ABG pO2 >420 H >420 H 276 H (83-108) mmHg ABG HCO3 28 H 28 H 27 H (21-25) mmol/L ABG Total CO2 29 H 29 H 29 H (19-24) mmol/L ABG O2 Saturation 100.0 H 100.0 H 99.9 H (94-97) % ABG Hematocrit 31 L 28 L (34.0-46.0) % ABG Potassium 2.8 L* 3.2 L (3.4-4.5) mmol/L BUN (7-17) mg/dL Glucose (74-99) mg/dL POC Glucose (mg/dL) (75-99) mg/dL AST (14-36) U/L ALT (9-52) U/L Total Protein (6.3-8.2) g/dL Albumin (3.5-5.0) g/dL Arterial Blood Potassium 2.8 L* 3.2 L (3.4-4.5) mmol/L 10/09/16 10/09/16 10/09/16 Range/Units 11:27 11:29 12:33 WBC (3.8-10.6) k/uL RBC (3.80-5.40) m/uL Hgb (11.4-16.0) gm/dL Hct (34.0-46.0) % Neutrophils # (1.3-7.7) k/uL ABG pH (7.35-7.45) ABG pCO2 (35-45) mmHg ABG pO2 (83-108) mmHg ABG HCO3 (21-25) mmol/L ABG Total CO2 (19-24) mmol/L ABG O2 Saturation (94-97) % ABG Hematocrit (34.0-46.0) % ABG Potassium (3.4-4.5) mmol/L BUN (7-17) mg/dL Glucose (74-99) mg/dL POC Glucose (mg/dL) 501 H 184 H 133 H (75-99) mg/dL AST (14-36) U/L ALT (9-52) U/L Total Protein (6.3-8.2) g/dL Albumin (3.5-5.0) g/dL Arterial Blood Potassium (3.4-4.5) mmol/L 10/09/16 10/09/16 10/09/16 Range/Units 13:32 15:01 16:28 WBC (3.8-10.6) k/uL RBC (3.80-5.40) m/uL Hgb (11.4-16.0) gm/dL Hct (34.0-46.0) % Neutrophils # (1.3-7.7) k/uL ABG pH (7.35-7.45) ABG pCO2 (35-45) mmHg ABG pO2 (83-108) mmHg ABG HCO3 (21-25) mmol/L ABG Total CO2 (19-24) mmol/L ABG O2 Saturation (94-97) % ABG Hematocrit (34.0-46.0) % ABG Potassium (3.4-4.5) mmol/L BUN (7-17) mg/dL Glucose (74-99) mg/dL POC Glucose (mg/dL) 121 H 141 H 131 H (75-99) mg/dL AST (14-36) U/L ALT (9-52) U/L Total Protein (6.3-8.2) g/dL Albumin (3.5-5.0) g/dL Arterial Blood Potassium (3.4-4.5) mmol/L 10/09/16 10/09/16 10/09/16 Range/Units 18:24 19:05 20:56 WBC (3.8-10.6) k/uL RBC (3.80-5.40) m/uL Hgb (11.4-16.0) gm/dL Hct (34.0-46.0) % Neutrophils # (1.3-7.7) k/uL ABG pH (7.35-7.45) ABG pCO2 (35-45) mmHg ABG pO2 (83-108) mmHg ABG HCO3 (21-25) mmol/L ABG Total CO2 (19-24) mmol/L ABG O2 Saturation (94-97) % ABG Hematocrit (34.0-46.0) % ABG Potassium (3.4-4.5) mmol/L BUN (7-17) mg/dL Glucose (74-99) mg/dL POC Glucose (mg/dL) 145 H 173 H 127 H (75-99) mg/dL AST (14-36) U/L ALT (9-52) U/L Total Protein (6.3-8.2) g/dL Albumin (3.5-5.0) g/dL Arterial Blood Potassium (3.4-4.5) mmol/L 10/09/16 10/09/16 10/10/16 Range/Units 22:25 23:14 01:05 WBC (3.8-10.6) k/uL RBC (3.80-5.40) m/uL Hgb (11.4-16.0) gm/dL Hct (34.0-46.0) % Neutrophils # (1.3-7.7) k/uL ABG pH (7.35-7.45) ABG pCO2 (35-45) mmHg ABG pO2 (83-108) mmHg ABG HCO3 (21-25) mmol/L ABG Total CO2 (19-24) mmol/L ABG O2 Saturation (94-97) % ABG Hematocrit (34.0-46.0) % ABG Potassium (3.4-4.5) mmol/L BUN (7-17) mg/dL Glucose (74-99) mg/dL POC Glucose (mg/dL) 121 H 121 H 127 H (75-99) mg/dL AST (14-36) U/L ALT (9-52) U/L Total Protein (6.3-8.2) g/dL Albumin (3.5-5.0) g/dL Arterial Blood Potassium (3.4-4.5) mmol/L 10/10/16 10/10/16 10/10/16 Range/Units 03:13 04:13 05:10 WBC 14.0 H (3.8-10.6) k/uL RBC 3.10 L (3.80-5.40) m/uL Hgb 9.2 L (11.4-16.0) gm/dL Hct 29.3 L (34.0-46.0) % Neutrophils # 12.2 H (1.3-7.7) k/uL ABG pH (7.35-7.45) ABG pCO2 (35-45) mmHg ABG pO2 (83-108) mmHg ABG HCO3 (21-25) mmol/L ABG Total CO2 (19-24) mmol/L ABG O2 Saturation (94-97) % ABG Hematocrit (34.0-46.0) % ABG Potassium (3.4-4.5) mmol/L BUN (7-17) mg/dL Glucose (74-99) mg/dL POC Glucose (mg/dL) 132 H 131 H (75-99) mg/dL AST (14-36) U/L ALT (9-52) U/L Total Protein (6.3-8.2) g/dL Albumin (3.5-5.0) g/dL Arterial Blood Potassium (3.4-4.5) mmol/L 10/10/16 10/10/16 10/10/16 Range/Units 05:10 05:13 08:26 WBC (3.8-10.6) k/uL RBC (3.80-5.40) m/uL Hgb (11.4-16.0) gm/dL Hct (34.0-46.0) % Neutrophils # (1.3-7.7) k/uL ABG pH (7.35-7.45) ABG pCO2 (35-45) mmHg ABG pO2 (83-108) mmHg ABG HCO3 (21-25) mmol/L ABG Total CO2 (19-24) mmol/L ABG O2 Saturation (94-97) % ABG Hematocrit (34.0-46.0) % ABG Potassium (3.4-4.5) mmol/L BUN 22 H (7-17) mg/dL Glucose 130 H (74-99) mg/dL POC Glucose (mg/dL) 125 H 120 H (75-99) mg/dL AST 73 H (14-36) U/L ALT 61 H (9-52) U/L Total Protein 5.6 L (6.3-8.2) g/dL Albumin 3.1 L (3.5-5.0) g/dL Arterial Blood Potassium (3.4-4.5) mmol/L Assessment and Plan (1) Hx of CABG Status: Acute (2) Acute non-ST segment elevation myocardial infarction (STEMI) following previous myocardial infarction Status: Acute (3) GERD (gastroesophageal reflux disease) Status: Acute (4) Hypertension Status: Acute Plan: Plan dated 10/10/2016 The patient continues to improve. We'll continue to follow. No additional recommendations are made. Chest tube out today. Time with Patient: Less than 30
--- NOTE | 2016-10-10 11:09 | XR ---
EXAMINATION TYPE: XR chest 1V portable DATE OF EXAM: 10/10/2016 6:47 AM COMPARISON: Prior chest x-ray dated 09 October 2016 HISTORY: Status post coronary artery bypass graft, chest tube TECHNIQUE: Single frontal view of the chest is obtained. FINDINGS: Left-sided chest tube remains in place, patient is post median sternotomy. No sizable pneu mothorax. Right jugular central venous sheath is noted. Central venous catheter has been removed. The re is some improvement in the interstitial. Pulmonary vascularity and rudi somewhat improved. Mediast inal drain is no longer evident. IMPRESSION: Improvement in patient's volume status.
--- NOTE | 2016-10-10 11:34 | P.PN ---
Progress Note - Text CV Surgery Procedure Note Addendum Left pleural chest tube without air leak and with minimal drainage-discontinued without incident, dressing applied. Will check chest x-ray in a.m.
[2016-10-10 12:05] LABS: Glucose,Whole Blood 132 mg/dL (75-99)
[2016-10-10] MEDS: INSULIN LISPRO (humaLOG) 300 UNIT/3 ML VIAL SQ SCH ×3 (13:58→21:05)
[2016-10-10] MEDS: LACTATED RINGERS 1,000 ML IV SCH (17:26)
[2016-10-10 17:27] LABS: Glucose,Whole Blood 121 mg/dL (75-99)
[2016-10-10 20:41] LABS: Glucose,Whole Blood 139 mg/dL (75-99)
--- NOTE | 2016-10-10 20:41 | P.PN ---
Subjective This is a 66-year-old female who underwent I to coronary bypass surgery with a critical lesion involving the ostium of the left anterior descending. Patient had a BRAR to the LAD. Patient is sitting up in the chair. She is postoperative day #3. She seemed to be feeling better and no complaints of the chest pain. Her blood pressures running in the 90s. Heart rate is in the 90s. Her electrolytes are within normal limits a creatinine is 0.86. Overall patient seemed to be progressing well. She may be transferred to telemetry unit today or tomorrow. Objective - Vital Signs Vital signs: Vital Signs Temp 98.3 F 10/10/16 15:00 Pulse 98 10/10/16 20:16 Resp 25 H 10/10/16 17:00 BP 115/63 10/10/16 17:00 Pulse Ox 95 10/10/16 17:00 Intake & Output 10/10/16 10/10/16 10/11/16 06:59 18:59 06:59 Intake Total 1002.531 505 Output Total 220 300 Balance 782.531 205 Weight 89.4 kg Intake: IV 639 265 0.9ns Pressure Bag 39 15 Lactated Ringers 1,000 ml 600 250 @ 50 mls/hr IV .Q20H [facility] Rx#:[id number] Intake, IV Titration 8.531 Amount Insulin Regular 100 unit 8.531 In Sodium Chloride 0.9% 100 ml @ Per Protocol IV .Q0M [facility] Rx#:[id number] Oral 355 240 Output: Chest Tube Drainage 20 50 Left Pleural 20 50 Urine 200 250 Other: Voiding Method Indwelling Catheter ABP, PAP, CO, CI - Last Documented Arterial Blood Pressure 135/79 Pulmonary Artery Pressure 38/21 Cardiac Output 5.2 Cardiac Index 2.8 - Labs CBC & Chem 7: 10/10/16 05:10 10/10/16 05:10 Labs: Abnormal Lab Results - Last 24 Hours (Table) 10/07/16 10/07/16 10/07/16 Range/Units 09:10 11:34 12:39 WBC (3.8-10.6) k/uL RBC (3.80-5.40) m/uL Hgb (11.4-16.0) gm/dL Hct (34.0-46.0) % Neutrophils # (1.3-7.7) k/uL ABG pH 7.56 H 7.50 H (7.35-7.45) ABG pCO2 32 L (35-45) mmHg ABG pO2 >420 H >420 H 276 H (83-108) mmHg ABG HCO3 28 H 28 H 27 H (21-25) mmol/L ABG Total CO2 29 H 29 H 29 H (19-24) mmol/L ABG O2 Saturation 100.0 H 100.0 H 99.9 H (94-97) % ABG Hematocrit 31 L 28 L (34.0-46.0) % ABG Potassium 2.8 L* 3.2 L (3.4-4.5) mmol/L BUN (7-17) mg/dL Glucose (74-99) mg/dL POC Glucose (mg/dL) (75-99) mg/dL AST (14-36) U/L ALT (9-52) U/L Total Protein (6.3-8.2) g/dL Albumin (3.5-5.0) g/dL Arterial Blood Potassium 2.8 L* 3.2 L (3.4-4.5) mmol/L 10/09/16 10/09/16 10/09/16 Range/Units 20:56 22:25 23:14 WBC (3.8-10.6) k/uL RBC (3.80-5.40) m/uL Hgb (11.4-16.0) gm/dL Hct (34.0-46.0) % Neutrophils # (1.3-7.7) k/uL ABG pH (7.35-7.45) ABG pCO2 (35-45) mmHg ABG pO2 (83-108) mmHg ABG HCO3 (21-25) mmol/L ABG Total CO2 (19-24) mmol/L ABG O2 Saturation (94-97) % ABG Hematocrit (34.0-46.0) % ABG Potassium (3.4-4.5) mmol/L BUN (7-17) mg/dL Glucose (74-99) mg/dL POC Glucose (mg/dL) 127 H 121 H 121 H (75-99) mg/dL AST (14-36) U/L ALT (9-52) U/L Total Protein (6.3-8.2) g/dL Albumin (3.5-5.0) g/dL Arterial Blood Potassium (3.4-4.5) mmol/L 10/10/16 10/10/16 10/10/16 Range/Units 01:05 03:13 04:13 WBC (3.8-10.6) k/uL RBC (3.80-5.40) m/uL Hgb (11.4-16.0) gm/dL Hct (34.0-46.0) % Neutrophils # (1.3-7.7) k/uL ABG pH (7.35-7.45) ABG pCO2 (35-45) mmHg ABG pO2 (83-108) mmHg ABG HCO3 (21-25) mmol/L ABG Total CO2 (19-24) mmol/L ABG O2 Saturation (94-97) % ABG Hematocrit (34.0-46.0) % ABG Potassium (3.4-4.5) mmol/L BUN (7-17) mg/dL Glucose (74-99) mg/dL POC Glucose (mg/dL) 127 H 132 H 131 H (75-99) mg/dL AST (14-36) U/L ALT (9-52) U/L Total Protein (6.3-8.2) g/dL Albumin (3.5-5.0) g/dL Arterial Blood Potassium (3.4-4.5) mmol/L 10/10/16 10/10/16 10/10/16 Range/Units 05:10 05:10 05:13 WBC 14.0 H (3.8-10.6) k/uL RBC 3.10 L (3.80-5.40) m/uL Hgb 9.2 L (11.4-16.0) gm/dL Hct 29.3 L (34.0-46.0) % Neutrophils # 12.2 H (1.3-7.7) k/uL ABG pH (7.35-7.45) ABG pCO2 (35-45) mmHg ABG pO2 (83-108) mmHg ABG HCO3 (21-25) mmol/L ABG Total CO2 (19-24) mmol/L ABG O2 Saturation (94-97) % ABG Hematocrit (34.0-46.0) % ABG Potassium (3.4-4.5) mmol/L BUN 22 H (7-17) mg/dL Glucose 130 H (74-99) mg/dL POC Glucose (mg/dL) 125 H (75-99) mg/dL AST 73 H (14-36) U/L ALT 61 H (9-52) U/L Total Protein 5.6 L (6.3-8.2) g/dL Albumin 3.1 L (3.5-5.0) g/dL Arterial Blood Potassium (3.4-4.5) mmol/L 10/10/16 10/10/16 10/10/16 Range/Units 08:26 12:04 17:17 WBC (3.8-10.6) k/uL RBC (3.80-5.40) m/uL Hgb (11.4-16.0) gm/dL Hct (34.0-46.0) % Neutrophils # (1.3-7.7) k/uL ABG pH (7.35-7.45) ABG pCO2 (35-45) mmHg ABG pO2 (83-108) mmHg ABG HCO3 (21-25) mmol/L ABG Total CO2 (19-24) mmol/L ABG O2 Saturation (94-97) % ABG Hematocrit (34.0-46.0) % ABG Potassium (3.4-4.5) mmol/L BUN (7-17) mg/dL Glucose (74-99) mg/dL POC Glucose (mg/dL) 120 H 132 H 121 H (75-99) mg/dL AST (14-36) U/L ALT (9-52) U/L Total Protein (6.3-8.2) g/dL Albumin (3.5-5.0) g/dL Arterial Blood Potassium (3.4-4.5) mmol/L Assessment and Plan (1) Chest pain Status: Acute (2) Left bundle branch block Status: Acute (3) History of breast cancer Status: Acute (4) GERD (gastroesophageal reflux disease) Status: Acute (5) Hypertension Status: Acute Plan: Patient is progressing fairly well. She is currently on aspirin Coreg 6.25 mg by mouth twice a day Plavix and levothyroxine along with steroid and several inhalers.. Patient will continue current medical therapy. Incentive spirometry to be continued. Patient may be transferred to telemetry
[2016-10-10] MEDS: LEVOTHYROXINE 50 MCG TAB PO SCH (21:05)
[2016-10-10] MEDS: PANTOPRAZOLE 40 MG TABLET PO SCH (21:05)
[2016-10-10] MEDS: HYDROcodone/APAP 5-325MG 1 EACH TAB PO PRN (21:22)
[2016-10-11] MEDS: HEPARIN SODIUM,PORCINE 5,000 UNIT/ML 1 ML VIAL SQ SCH ×3 (00:47→17:48)
[2016-10-11 00:51] LABS: Glucose,Whole Blood 134 mg/dL (75-99)
[2016-10-11] MEDS: INSULIN LISPRO (humaLOG) 300 UNIT/3 ML VIAL SQ SCH ×5 (00:52→21:58)
[2016-10-11 01:46] LABS: Glucose,Whole Blood 133 mg/dL (75-99)
--- NOTE | 2016-10-11 05:14 | PN ---
DATE OF SERVICE: 10/10/2016 This 66-year-old woman who was admitted with acute non-ST segment elevation myocardial infarction had a cardiac catheterization as well as LAD stenosis. The patient underwent CABG. Patient improved significantly. Chest tube has been removed. No cough, no fever. Minimal chest pain is complained of. On exam, alert and oriented x3. Pulse is 94, blood pressure 99/53, respirations 18, temperature 98.4, pulse ox 88% on room air. HEENT: Conjunctivae normal. NECK: No jugular venous distention. CARDIOVASCULAR: S1 and S2, muffled. RESPIRATORY: Breath sounds diminished at the bases. A few scattered rhonchi and crackles. ABDOMEN: Soft, nontender. LEGS: No edema, no swelling. NERVOUS SYSTEM: No focal deficits. LABS: WBC 14, hemoglobin 9.2. Otherwise, the albumin is 3.1. ASSESSMENT: 1. Chest pain, possible acute non-ST segment elevation myocardial infarction present on admission, status post cardiac catheterization as well as left anterior descending coronary artery , status post coronary artery bypass grafting. 2. History of congestive heart failure with chronic systolic dysfunction, ejection fraction less than 20% with possible ischemic cardiomyopathy. 3. Mild valvular abnormalities including mild aortic valve stenosis, mitral calcification, mitral regurgitation on 2-D echo. 4. Left bundle branch block on EKG. 5. Troponin elevated up to 4.260 on admission. 6. Hyperlipidemia. 7. Increased random blood sugar. 8. Increased WBC, possibly reactive. 9. Asthma history. 10. History of gastroesophageal reflux disease. 11. Hypertension. 12. Hypothyroidism. 13. History of breast cancer. 14. History of right lung nodule. 15. History of cholecystectomy. 16. History of bone marrow transplant in 1994. 17. Anemia, postoperative expected, multifactorial. 18. FULL CODE. RECOMMENDATIONS AND DISCUSSION: This 66-year-old woman who presented with multiple complex medical issues, will monitor the patient closely. Continue the current medications. Continue symptomatic treatment. Otherwise, continue with monitoring the blood sugars closely to scale. Otherwise, hemoglobin A1c is normal and continue to monitor. DVT prophylaxis. Closely follow with Cardiothoracic Surgery. Further recommendations to follow. MTDD
[2016-10-11 06:46] LABS: Basophils # (A) 0.3 k/uL (0-0.2); Basophils % (A) 2 %; CH 30.2; CHCM 32.3; Eosinophils % (A) 0 %; HCT 29.6 % (34.0-46.0); HDW 2.87; HGB 9.5 gm/dL (11.4-16.0); Luc # (Auto) 0.11; Luc % (Auto) 1; Lymphocytes # (A) 0.7 k/uL (1.0-4.8); Lymphocytes % (A) 7 %; MCH 30.3 pg (25.0-35.0); MCHC 32.2 g/dL (31.0-37.0); MCV 94.2 fL (80.0-100.0); Mean Platelet Volume 8.5; Monocytes # (A) 0.5 k/uL (0-1.0); Monocytes % (A) 5 %; Neutrophils # (A) 9.3 k/uL (1.3-7.7); Neutrophils % (A) 85 %; RBC 3.14 m/uL (3.80-5.40); RDW 14.5 % (11.5-15.5); WBC 10.9 k/uL (3.8-10.6); WBC (Perox) 11.12
[2016-10-11 06:57] LABS: Anion Gap 11 mmol/L; Blood Urea Nitrogen 37 mg/dL (7-17); Calcium 9.3 mg/dL (8.4-10.2); Carbon Dioxide 26 mmol/L (22-30); Chloride 102 mmol/L (98-107); Glucose 139 mg/dL (74-99); Magnesium 2.1 mg/dL (1.6-2.3); Non-African American GFR(MDRD) 57 (>60 ml/min/1.73 sqM); Potassium 4.9 mmol/L (3.5-5.1); Sodium 139 mmol/L (137-145)
--- NOTE | 2016-10-11 08:05 | XR ---
EXAMINATION TYPE: XR chest 1V portable DATE OF EXAM: 10/11/2016 6:48 AM COMPARISON: Prior chest x-ray four October 2016 HISTORY: Status post coronary artery bypass graft, chest tube removal TECHNIQUE: Single frontal view of the chest is obtained. FINDINGS: Interval left-sided chest tube removal. There are overlying cardiac leads and post median sternotomy change. Persistent elevation of the right hemidiaphragm, heart remains enlarged. No eviden t pneumothorax or pleural effusion. Patient is rotated. IMPRESSION: No evident complication status post chest tube removal.
[2016-10-11] MEDS: methylPREDNISolone SOD SUCCI 40 MG/ML 1 ML VIAL IV SCH ×2 (08:18→22:21)
[2016-10-11] MEDS: CLOPIDOGREL 75 MG TAB PO SCH (08:18)
[2016-10-11] MEDS: DOCUSATE 100 MG CAP PO SCH ×3 (08:18→22:22)
[2016-10-11] MEDS: CARVEDILOL 6.25 MG TAB PO SCH ×2 (08:18→17:48)
[2016-10-11] MEDS: ASPIRIN 325 MG TAB PO SCH (08:18)
[2016-10-11] MEDS: IPRATROPIUM-ALBUTEROL 3 ML NEB INHALATION SCH (08:29)
[2016-10-11] MEDS: SYMBICORT 160-4.5 MCG INHALER INHALATION SCH ×2 (08:29→20:30)
[2016-10-11] MEDS: ACETYLCYSTEINE 800 MG/4 ML VIAL INHALATION SCH (08:29)
[2016-10-11] MEDS ORDERED: MAGNESIUM HYDROXIDE 2,400 MG/10 ML CUP PO PRN (08:59)
[2016-10-11 09:32] LABS: Prothrombin Time 10.6 sec (9.0-12.0)
[2016-10-11 10:14] VITALS: BMI 33.5
--- NOTE | 2016-10-11 11:36 | P.PN ---
Subjective This is a very pleasant 66-year-old female patient who follows with Dr. Arechiga as her primary care physician. She has a history of metastatic breast cancer, status post bilateral mastectomy/radiation and previous stem cell transplant. She also has a history of gastroesophageal reflux disease, chronic cough related to radiation pneumonitis, history of BRCA gene positive, bilateral oophorectomy, history of lymphoma. She also had a small left upper lobe nodule in the status post wedge resection. She is a lifelong nonsmoker. He presented here on 10/05/2016 as a transfer from [facility] for myocardial infarction. She'd undergone cardiac catheterization and was found to have critical stenosis involving the ostium of the left anterior descending artery. There is mild disease in the right coronary artery. There is elevated left ventricular end-diastolic pressure. She was recommended surgical intervention. On 10/07/2016 she had undergone urgent off-pump coronary artery bypass grafting 1 with a BRAR to the LAD and was initially on the intra-aortic balloon pump. She is seen again today 10/11/2016 in the intensive care unit in follow-up. She is a selective care unit overflow. She is currently sitting up in the chair at the bedside. She is awake and alert in no acute distress. She has been ambulating out in the hallway. She is maintaining good O2 saturations in the mid 90s on room air. He denies any significant shortness of breath, cough or congestion. Her pain is well controlled. Her chest x-ray shows some atelectatic changes of the left base. She is doing well with the incentive spirometer. Objective - Vital Signs Vital signs: Vital Signs Temp 98.1 F 10/11/16 08:00 Pulse 98 10/11/16 08:00 Resp 34 H 10/11/16 08:00 BP 123/72 10/11/16 08:00 Pulse Ox 94 L 10/11/16 04:00 Intake & Output 10/10/16 10/11/16 10/11/16 18:59 06:59 18:59 Intake Total 505 Output Total 300 1000 0 Balance 205 -1000 0 Weight 88.6 kg 88.6 kg Intake: IV 265 0.9ns Pressure Bag 15 Lactated Ringers 1,000 ml 250 @ 50 mls/hr IV .Q20H [facility] Rx#:[id number] Oral 240 Output: Chest Tube Drainage 50 Left Pleural 50 Urine 250 1000 0 Other: Voiding Method Bedside Commode Bedside Commode # Voids 1 ABP, PAP, CO, CI - Last Documented Arterial Blood Pressure 135/79 Pulmonary Artery Pressure 38/21 Cardiac Output 5.2 Cardiac Index 2.8 - Exam GENERAL EXAM: Alert, comfortable in no apparent distress. HEAD: Normocephalic. EYES: Normal reaction of pupils, equal size. NOSE: Clear with pink turbinates. THROAT: No erythema or exudates. NECK: No masses, no JVD. Right IJ [place] in place. CHEST: Sternal dressing is dry and intact. LUNGS: Equal air entry with few scattered rhonchi, basilar crackles. CVS: S1 and S2 normal with no audible murmurs, regular rhythm. ABDOMEN: No hepatosplenomegaly, normal bowel sounds, no guarding or rigidity. SPINE: No scoliosis or deformity SKIN: No rashes CENTRAL NERVOUS SYSTEM: No focal deficits, tone is normal in all 4 extremities. Extremities: There is trace peripheral edema. No clubbing, no cyanosis. Peripheral pulses are intact. - Labs CBC & Chem 7: 10/11/16 06:20 10/11/16 06:20 Labs: Abnormal Lab Results - Last 24 Hours (Table) 10/10/16 10/10/16 10/10/16 Range/Units 12:04 17:17 20:39 WBC (3.8-10.6) k/uL RBC (3.80-5.40) m/uL Hgb (11.4-16.0) gm/dL Hct (34.0-46.0) % Neutrophils # (1.3-7.7) k/uL Lymphocytes # (1.0-4.8) k/uL Basophils # (0-0.2) k/uL BUN (7-17) mg/dL Glucose (74-99) mg/dL POC Glucose (mg/dL) 132 H 121 H 139 H (75-99) mg/dL 10/11/16 10/11/16 10/11/16 Range/Units 00:49 01:43 06:20 WBC 10.9 H (3.8-10.6) k/uL RBC 3.14 L (3.80-5.40) m/uL Hgb 9.5 L (11.4-16.0) gm/dL Hct 29.6 L (34.0-46.0) % Neutrophils # 9.3 H (1.3-7.7) k/uL Lymphocytes # 0.7 L (1.0-4.8) k/uL Basophils # 0.3 H (0-0.2) k/uL BUN (7-17) mg/dL Glucose (74-99) mg/dL POC Glucose (mg/dL) 134 H 133 H (75-99) mg/dL 10/11/16 Range/Units 06:20 WBC (3.8-10.6) k/uL RBC (3.80-5.40) m/uL Hgb (11.4-16.0) gm/dL Hct (34.0-46.0) % Neutrophils # (1.3-7.7) k/uL Lymphocytes # (1.0-4.8) k/uL Basophils # (0-0.2) k/uL BUN 37 H (7-17) mg/dL Glucose 139 H (74-99) mg/dL POC Glucose (mg/dL) (75-99) mg/dL Assessment and Plan Plan: Impression: #1 coronary artery disease status post urgent off-pump coronary artery bypass graft surgery with a BRAR to the LAD. Postoperative day #4. #2 Severe ischemic cardiomyopathy with estimated ejection fraction less than 20% . #3 Left bundle branch block pattern on EKG. #4 History of breast cancer status post bilateral mastectomy/radiation, BRCA gene positive. #5 Chronic cough secondary to radiation pneumonitis. #6 Stem cell transplant in 1994. #7 Hypothyroidism. #8 Hypertension. #9 Gastroesophageal reflux disease. Plan: The patient was seen and evaluated by Dr. Mayen. Her chest x-ray, and labs were reviewed. She'll be transferred out of the intensive care unit once the selective care unit bed is available. She is currently stable from the pulmonary standpoint. We'll continue with her bronchodilators, Symbicort and Solu-Medrol. She remains on heparin for DVT prophylaxis. We will increase her activity as tolerated. We'll continue to follow make further recommendations based on her clinical status.
--- NOTE | 2016-10-11 12:35 | P.PN ---
Subjective Principal diagnosis: CV Surgery POD: #4, urgent off pump coronary artery bypass grafts 1 utilizing left internal mammary artery to left anterior descending coronary artery, insertion of intra-aortic balloon pump, intraoperative transesophageal echocardiogram and epi-aortic ultrasonography. Patient sitting up in chair in no apparent distress. Denies any pain at this time, does complain of occasional shortness of breath. Objective - Vital Signs Vital signs: Vital Signs Temp 98.1 F 10/11/16 08:00 Pulse 98 10/11/16 08:00 Resp 34 H 10/11/16 08:00 BP 123/72 10/11/16 08:00 Pulse Ox 94 L 10/11/16 04:00 Intake & Output 10/10/16 10/11/16 10/11/16 18:59 06:59 18:59 Intake Total 505 Output Total 300 1000 0 Balance 205 -1000 0 Weight 88.6 kg 88.6 kg Intake: IV 265 0.9ns Pressure Bag 15 Lactated Ringers 1,000 ml 250 @ 50 mls/hr IV .Q20H [facility] Rx#:[id number] Oral 240 Output: Chest Tube Drainage 50 Left Pleural 50 Urine 250 1000 0 Other: Voiding Method Bedside Commode Bedside Commode # Voids 1 ABP, PAP, CO, CI - Last Documented Arterial Blood Pressure 135/79 Pulmonary Artery Pressure 38/21 Cardiac Output 5.2 Cardiac Index 2.8 - Constitutional General appearance: Present: cooperative, no acute distress - EENT Eyes: Present: PERRLA Ears: bilateral: normal - Neck Neck: Present: normal ROM Carotids: bilateral: upstroke normal - Respiratory Details: Respirations even and unlabored on room air. Patient achieving 1000 mL on incentive spirometry and is coughing and deep breathing appropriately. Respiratory: bilateral: diminished - Cardiovascular Details: No murmurs rubs or gallops. Patient is in normal sinus rhythm on telemetry. No edema present. Palpable radial, DP, PT pulses. Chest stable. Heart sounds: normal: S1, S2 - Gastrointestinal Gastrointestinal Comment(s): Abdomen soft, nontender, nondistended. Positive flatus. No bowel movement since surgery, but patient does state she feels she will have to go soon. General gastrointestinal: Present: normal bowel sounds - Genitourinary Genitourinary Comment(s): Patient voiding appropriately. - Integumentary Integumentary Comment(s): Skin warm, dry, pink. Silver dressing over midsternal chest incision dry and intact. - Neurologic Neurologic Comment(s): Patient is alert and oriented 3. She follows all commands. - Musculoskeletal Musculoskeletal: Present: gait normal - Psychiatric Psychiatric: Present: A&O x's 3, appropriate affect, intact judgment & insight - Allied health notes Allied health notes reviewed: nursing - Labs CBC & Chem 7: 10/11/16 06:20 10/11/16 06:20 Labs: Abnormal Lab Results - Last 24 Hours (Table) 10/10/16 10/10/16 10/10/16 Range/Units 12:04 17:17 20:39 WBC (3.8-10.6) k/uL RBC (3.80-5.40) m/uL Hgb (11.4-16.0) gm/dL Hct (34.0-46.0) % Neutrophils # (1.3-7.7) k/uL Lymphocytes # (1.0-4.8) k/uL Basophils # (0-0.2) k/uL BUN (7-17) mg/dL Glucose (74-99) mg/dL POC Glucose (mg/dL) 132 H 121 H 139 H (75-99) mg/dL 10/11/16 10/11/16 10/11/16 Range/Units 00:49 01:43 06:20 WBC 10.9 H (3.8-10.6) k/uL RBC 3.14 L (3.80-5.40) m/uL Hgb 9.5 L (11.4-16.0) gm/dL Hct 29.6 L (34.0-46.0) % Neutrophils # 9.3 H (1.3-7.7) k/uL Lymphocytes # 0.7 L (1.0-4.8) k/uL Basophils # 0.3 H (0-0.2) k/uL BUN (7-17) mg/dL Glucose (74-99) mg/dL POC Glucose (mg/dL) 134 H 133 H (75-99) mg/dL 10/11/16 Range/Units 06:20 WBC (3.8-10.6) k/uL RBC (3.80-5.40) m/uL Hgb (11.4-16.0) gm/dL Hct (34.0-46.0) % Neutrophils # (1.3-7.7) k/uL Lymphocytes # (1.0-4.8) k/uL Basophils # (0-0.2) k/uL BUN 37 H (7-17) mg/dL Glucose 139 H (74-99) mg/dL POC Glucose (mg/dL) (75-99) mg/dL - Imaging and Cardiology Chest x-ray: image reviewed Assessment and Plan (1) Acute non-ST segment elevation myocardial infarction (STEMI) following previous myocardial infarction Narrative/Plan: Continue aspirin, Plavix, Coreg. We'll plan to start statin, however, liver enzymes are elevated at this time. Status: Acute (2) Hx of CABG Status: Acute (3) Systolic heart failure Status: Acute Plan: Plan #1. will continue aspirin, Plavix, Coreg. #2. Continue to encourage incentive spirometry use, coughing and deep breathing. #3. Continue to increase activity. #4. Transfer to stepdown unit when bed available. #5. Milk of magnesia ordered, will have RN give suppository if no bowel movement by noon. #6. Daily weights, sodium restriction, will need heart failure teaching. Time with Patient: Greater than 30
[2016-10-11 13:29] LABS: Glucose,Whole Blood 117 mg/dL (75-99)
[2016-10-11 17:33] LABS: Glucose,Whole Blood 132 mg/dL (75-99)
--- NOTE | 2016-10-11 21:01 | PN ---
DATE OF SERVICE: 10/11/2016 This 66-year-old woman who was admitted with acute pyo-XN-yxufjis-elevation myocardial infarction underwent cardiac catheterization and subsequently CABG because of critical LAD stenosis. No chest pain. No palpitation. No fever. Patient is improving significantly. On exam, alert and oriented x3. Pulse 89, blood pressure 108/64, respiration 20, temperature 98.0, pulse ox 98% on room air. HEENT: Conjunctivae normal. NECK: No jugular venous distention. CARDIOVASCULAR SYSTEM: S1, S2 muffled. RESPIRATORY SYSTEM: Breath sounds diminished at the bases. A few scattered rhonchi. ABDOMEN: Soft, non-tender. LEGS: No edema. No swelling. NERVOUS SYSTEM: No focal deficit. LABS: WBC 10.9, hemoglobin 9.5. Accu-Cheks are noted. ASSESSMENT: 1. Chest pain, possibly acute gtk-XP-igjcyit-elevation myocardial infarction, present on admission, status post cardiac catheterization as well as left anterior descending disease, status post coronary artery bypass grafting. 2. History of congestive heart failure with chronic systolic dysfunction; ejection fraction less than 20%, with possible ischemic cardiomyopathy. 3. Mild valvular abnormalities, including mild aortic valve stenosis, mitral calcification, mitral regurgitation on 2-D echo. 4. Left bundle branch block on EKG. 5. Troponin elevated up to 4.260 on admission. 6. Hyperlipidemia. 7. Increased random blood sugar. 8. Increased white count, possibly reactive. 9. Asthma history. 10. History of gastroesophageal reflux disease. 11. Hypertension. 12. Hypothyroidism. 13. History of breast cancer. 14. History of right lung nodule. 15. History of cholecystectomy. 16. History of bone marrow transplant in 1994. 17. Anemia, postoperative, as expected; multifactorial. 18. FULL CODE. RECOMMENDATIONS AND DISCUSSION: I recommend to continue with the current medications, continue with symptomatic treatment, DVT prophylaxis, continue with incentive spirometry. Otherwise, closely follow with Cardiology and Cardiothoracic Surgery. Further recommendations to follow.
[2016-10-11 21:59] LABS: Glucose,Whole Blood 126 mg/dL (75-99)
[2016-10-11] MEDS: HYDROcodone/APAP 5-325MG 1 EACH TAB PO PRN (22:20)
[2016-10-11] MEDS: LEVOTHYROXINE 50 MCG TAB PO SCH (22:21)
[2016-10-11] MEDS: PANTOPRAZOLE 40 MG TABLET PO SCH (22:21)
--- NOTE | 2016-10-11 23:58 | P.PN ---
Subjective This is a 66-year-old female who is status post prior to coronary bypass surgery for significant ostial stenosis of the left anterior descending. Patient is progressing fairly well. Doesn't appear to be in acute distress. Vital signs are stable. She is tolerating activity. She is waiting to be transferred to telemetry unit. No arrhythmias are noted. Objective - Vital Signs Vital signs: Vital Signs Temp 98.1 F 10/11/16 16:00 Pulse 89 10/11/16 16:00 Resp 24 10/11/16 16:00 BP 108/65 10/11/16 16:00 Pulse Ox 96 10/11/16 14:00 Intake & Output 10/11/16 10/11/16 10/12/16 06:59 18:59 06:59 Intake Total 240 Output Total 1000 0 Balance -1000 240 Weight 88.6 kg 88.6 kg Intake: Oral 240 Output: Urine 1000 0 Other: Voiding Method Bedside Commode Bedside Commode # Voids 1 1 ABP, PAP, CO, CI - Last Documented Arterial Blood Pressure 135/79 Pulmonary Artery Pressure 38/21 Cardiac Output 5.2 Cardiac Index 2.8 - Exam GENERAL EXAM: Patient is alert and oriented and doesn't appear to be in any acute distress HEENT: Normocephalic. Normal reaction of pupils, equal size, normal range of extraocular motion. No erythema or exudates in the throat. NECK: No masses, no nuchal rigidity. CHEST: Postsurgical LUNGS: Equal air entry with no crackles or wheeze. HEART: S1 and S2 normal with no audible mumurs or gallops. Regular rhythm, femorals equal on both sides.. ABDOMEN: No hepatosplenomegaly, normal bowel sounds, no guarding or rigidity. SKIN: No rashes CENTRAL NERVOUS SYSTEM: No focal deficits. EXTREMITIES: No cyanosis, clubbing or edema. - Labs CBC & Chem 7: 10/11/16 06:20 10/11/16 06:20 Labs: Abnormal Lab Results - Last 24 Hours (Table) 10/11/16 10/11/16 10/11/16 Range/Units 00:49 01:43 06:20 WBC 10.9 H (3.8-10.6) k/uL RBC 3.14 L (3.80-5.40) m/uL Hgb 9.5 L (11.4-16.0) gm/dL Hct 29.6 L (34.0-46.0) % Neutrophils # 9.3 H (1.3-7.7) k/uL Lymphocytes # 0.7 L (1.0-4.8) k/uL Basophils # 0.3 H (0-0.2) k/uL BUN (7-17) mg/dL Glucose (74-99) mg/dL POC Glucose (mg/dL) 134 H 133 H (75-99) mg/dL 10/11/16 10/11/16 10/11/16 Range/Units 06:20 13:27 17:31 WBC (3.8-10.6) k/uL RBC (3.80-5.40) m/uL Hgb (11.4-16.0) gm/dL Hct (34.0-46.0) % Neutrophils # (1.3-7.7) k/uL Lymphocytes # (1.0-4.8) k/uL Basophils # (0-0.2) k/uL BUN 37 H (7-17) mg/dL Glucose 139 H (74-99) mg/dL POC Glucose (mg/dL) 117 H 132 H (75-99) mg/dL 10/11/16 Range/Units 21:57 WBC (3.8-10.6) k/uL RBC (3.80-5.40) m/uL Hgb (11.4-16.0) gm/dL Hct (34.0-46.0) % Neutrophils # (1.3-7.7) k/uL Lymphocytes # (1.0-4.8) k/uL Basophils # (0-0.2) k/uL BUN (7-17) mg/dL Glucose (74-99) mg/dL POC Glucose (mg/dL) 126 H (75-99) mg/dL Assessment and Plan (1) Chest pain Status: Acute (2) Left bundle branch block Status: Acute (3) History of breast cancer Status: Acute (4) GERD (gastroesophageal reflux disease) Status: Acute (5) Hypertension Status: Acute Plan: This patient's symptoms are progressing well. She'll continue current medical therapy. To be transferred to telemetry unit.
[2016-10-12] MEDS: SYMBICORT 160-4.5 MCG INHALER INHALATION SCH ×3 (01:18→20:01)
[2016-10-12 02:14] LABS: Glucose,Whole Blood 131 mg/dL (75-99)
[2016-10-12] MEDS: INSULIN LISPRO (humaLOG) 300 UNIT/3 ML VIAL SQ SCH ×5 (02:35→20:57)
[2016-10-12] MEDS: HEPARIN SODIUM,PORCINE 5,000 UNIT/ML 1 ML VIAL SQ SCH ×4 (02:37→23:35)
[2016-10-12 05:34] LABS: Ionized Calcium 5.1 mg/dL (4.5-5.3)
[2016-10-12 05:35] LABS: Basophils # (A) 0.1 k/uL (0-0.2); Basophils % (A) 2 %; CH 30.7; CHCM 32.1; Eosinophils % (A) 0 %; HGB 9.1 gm/dL (11.4-16.0); Luc # (Auto) 0.07; Luc % (Auto) 1; Lymphocytes # (A) 0.7 k/uL (1.0-4.8); Lymphocytes % (A) 9 %; MCH 30.1 pg (25.0-35.0); MCHC 31.3 g/dL (31.0-37.0); MCV 96.1 fL (80.0-100.0); Monocytes # (A) 0.3 k/uL (0-1.0); Monocytes % (A) 5 %; Neutrophils % (A) 83 %; RBC 3.02 m/uL (3.80-5.40); RDW 14.9 % (11.5-15.5); WBC 7.2 k/uL (3.8-10.6); WBC (Perox) 7.66
[2016-10-12 05:44] LABS: ALT 59 U/L (9-52); AST 39 U/L (14-36); Alkaline Phosphatase 94 U/L (38-126); Anion Gap 8 mmol/L; Blood Urea Nitrogen 43 mg/dL (7-17); Calcium 9.1 mg/dL (8.4-10.2); Carbon Dioxide 28 mmol/L (22-30); Chloride 101 mmol/L (98-107); Glucose 131 mg/dL (74-99); Magnesium 2.3 mg/dL (1.6-2.3); Non-African American GFR(MDRD) 55 (>60 ml/min/1.73 sqM); Phosphorous 4.2 mg/dL (2.5-4.5); Potassium 5.1 mmol/L (3.5-5.1); Sodium 137 mmol/L (137-145); Total Bilirubin 0.6 mg/dL (0.2-1.3); Total Protein 5.4 g/dL (6.3-8.2)
[2016-10-12 07:49] LABS: Glucose,Whole Blood 126 mg/dL (75-99)
[2016-10-12] MEDS ORDERED: FUROSEMIDE 10 MG/ML 2 ML VIAL IV ONE (08:57)
--- NOTE | 2016-10-12 09:39 | P.PN ---
Subjective Principal diagnosis: CV Surgery POD: #4, urgent off pump coronary artery bypass grafts 1 utilizing left internal mammary artery to left anterior descending coronary artery, insertion of intra-aortic balloon pump, intraoperative transesophageal echocardiogram and epi-aortic ultrasonography. Patient sitting up in chair in no apparent distress. Denies any pain at this time, does complain of occasional shortness of breath. States that she asked to have oxygen back on last night because she felt she needed it. Objective - Vital Signs Vital signs: Vital Signs Temp 98.1 F 10/12/16 03:18 Pulse 75 10/12/16 03:18 Resp 14 10/12/16 03:18 BP 109/59 10/12/16 03:18 Pulse Ox 95 10/12/16 03:18 Intake & Output 10/11/16 10/12/16 10/12/16 18:59 06:59 18:59 Intake Total 240 360 Output Total 0 0 Balance 240 360 Weight 88.6 kg 92.6 kg Intake: Oral 240 360 Output: Urine 0 0 Other: Voiding Method Bedside Commode Toilet # Voids 1 2 ABP, PAP, CO, CI - Last Documented Arterial Blood Pressure 135/79 Pulmonary Artery Pressure 38/21 Cardiac Output 5.2 Cardiac Index 2.8 - Constitutional General appearance: Present: no acute distress - Respiratory Details: Respirations even and nonlabored, lung sounds coarse in the bases. - Cardiovascular Details: Clear S1-S2. Regular rate and rhythm. Normal sinus rhythm on telemetry. Trace lower extremity edema present. Palpable radial, DP, PT pulses bilaterally. Chest stable. - Gastrointestinal Gastrointestinal Comment(s): Abdomen soft, nontender, nondistended. Bowel sounds active in all 4 quadrants. Bowel movement 2 yesterday. - Genitourinary Genitourinary Comment(s): Patient currently voiding per bedside commode. - Neurologic Neurologic Comment(s): Alert and oriented 3. Following all commands. - Musculoskeletal Musculoskeletal Comment(s): Patient ambulating in hallway with standby assist. - Psychiatric Psychiatric: Present: appropriate affect, intact judgment & insight - Allied health notes Allied health notes reviewed: PT - Labs CBC & Chem 7: 10/12/16 05:15 10/12/16 05:15 Labs: Abnormal Lab Results - Last 24 Hours (Table) 10/11/16 10/11/16 10/11/16 Range/Units 13:27 17:31 21:57 RBC (3.80-5.40) m/uL Hgb (11.4-16.0) gm/dL Hct (34.0-46.0) % Lymphocytes # (1.0-4.8) k/uL BUN (7-17) mg/dL Glucose (74-99) mg/dL POC Glucose (mg/dL) 117 H 132 H 126 H (75-99) mg/dL AST (14-36) U/L ALT (9-52) U/L Total Protein (6.3-8.2) g/dL Albumin (3.5-5.0) g/dL 10/12/16 10/12/16 10/12/16 Range/Units 02:12 05:15 05:15 RBC 3.02 L (3.80-5.40) m/uL Hgb 9.1 L (11.4-16.0) gm/dL Hct 29.0 L (34.0-46.0) % Lymphocytes # 0.7 L (1.0-4.8) k/uL BUN 43 H (7-17) mg/dL Glucose 131 H (74-99) mg/dL POC Glucose (mg/dL) 131 H (75-99) mg/dL AST 39 H (14-36) U/L ALT 59 H (9-52) U/L Total Protein 5.4 L (6.3-8.2) g/dL Albumin 3.3 L (3.5-5.0) g/dL 10/12/16 Range/Units 07:40 RBC (3.80-5.40) m/uL Hgb (11.4-16.0) gm/dL Hct (34.0-46.0) % Lymphocytes # (1.0-4.8) k/uL BUN (7-17) mg/dL Glucose (74-99) mg/dL POC Glucose (mg/dL) 126 H (75-99) mg/dL AST (14-36) U/L ALT (9-52) U/L Total Protein (6.3-8.2) g/dL Albumin (3.5-5.0) g/dL - Imaging and Cardiology Chest x-ray: image reviewed Assessment and Plan (1) Acute non-ST segment elevation myocardial infarction (STEMI) following previous myocardial infarction Narrative/Plan: Continue aspirin, Plavix, Coreg. Would like to start statin, however, liver enzymes remain elevated but trending downward. Plan to start statin once patient's liver enzymes are normalized.. Status: Acute (2) Hx of CABG Status: Acute (3) Systolic heart failure Narrative/Plan: Continue aspirin, Plavix, Coreg. Monitor daily weights. Encourage sodium restriction. Status: Acute Plan: Plan #1. will continue aspirin, Plavix, Coreg. We will begin statin once liver enzymes have normalized. #2. Continue to encourage incentive spirometry use, coughing and deep breathing. #3. Continue to increase activity. #4. Transfer to stepdown unit when bed available or possible DC to home versus rehab today #5. Daily weights, sodium restriction, will need heart failure teaching. #6. We will give IV Lasix to help improve her respiratory status. #7. Discussed with cardiology the possible need for life vest upon discharge secondary to EF 20% Time with Patient: Greater than 30
[2016-10-12] MEDS: CARVEDILOL 6.25 MG TAB PO SCH ×2 (09:53→18:28)
[2016-10-12] MEDS: DOCUSATE 100 MG CAP PO SCH ×2 (09:53→20:57)
[2016-10-12] MEDS: ASPIRIN 325 MG TAB PO SCH (09:53)
[2016-10-12] MEDS: methylPREDNISolone SOD SUCCI 40 MG/ML 1 ML VIAL IV SCH ×2 (09:54→20:58)
[2016-10-12] MEDS: CLOPIDOGREL 75 MG TAB PO SCH (09:54)
--- NOTE | 2016-10-12 10:00 | P.PN ---
Subjective This a 66-year-old female with a history of vomiting bypass grafting. The patient a BRAR to LAD. She is postop day #3. Will have a chest tube removed today. Getting LR at 50 mL an hour. Insulin drip is off. Getting O2 2 L. The patient's feeling well today. Progress note dated 10/12/2016 The patient's doing well. She is a 66-year-old female with a history of bypass grafting. She had BRAR to LAD bypass. She is postop day #4. She probably will be discharged home today. She's currently off any supplemental oxygen in not receiving any IVs. She's doing very very well. Objective - Vital Signs Vital signs: Vital Signs Temp 98.1 F 10/12/16 03:18 Pulse 75 10/12/16 03:18 Resp 14 10/12/16 03:18 BP 109/59 10/12/16 03:18 Pulse Ox 95 10/12/16 03:18 Intake & Output 10/11/16 10/12/16 10/12/16 18:59 06:59 18:59 Intake Total 240 360 Output Total 0 0 Balance 240 360 Weight 88.6 kg 92.6 kg Intake: Oral 240 360 Output: Urine 0 0 Other: Voiding Method Bedside Commode Toilet # Voids 1 2 ABP, PAP, CO, CI - Last Documented Arterial Blood Pressure 135/79 Pulmonary Artery Pressure 38/21 Cardiac Output 5.2 Cardiac Index 2.8 - Exam No acute distress, oriented 3. HEENT examination is grossly unremarkable. Mixed membranes are moist. No oral lesions. Nasal O2 in place. Neck Supple. Full range of motion. No adenopathy or thyromegaly. Cardiovascular examination reveals regular rhythm rate. S1-S2 normal. No S3- S4 murmur. Lungs are clear breath sounds equal. Abdomen soft bowel sounds are heard. Extremities are intact. - Labs CBC & Chem 7: 10/12/16 05:15 10/12/16 05:15 Labs: Abnormal Lab Results - Last 24 Hours (Table) 10/11/16 10/11/16 10/11/16 Range/Units 13:27 17:31 21:57 RBC (3.80-5.40) m/uL Hgb (11.4-16.0) gm/dL Hct (34.0-46.0) % Lymphocytes # (1.0-4.8) k/uL BUN (7-17) mg/dL Glucose (74-99) mg/dL POC Glucose (mg/dL) 117 H 132 H 126 H (75-99) mg/dL AST (14-36) U/L ALT (9-52) U/L Total Protein (6.3-8.2) g/dL Albumin (3.5-5.0) g/dL 10/12/16 10/12/16 10/12/16 Range/Units 02:12 05:15 05:15 RBC 3.02 L (3.80-5.40) m/uL Hgb 9.1 L (11.4-16.0) gm/dL Hct 29.0 L (34.0-46.0) % Lymphocytes # 0.7 L (1.0-4.8) k/uL BUN 43 H (7-17) mg/dL Glucose 131 H (74-99) mg/dL POC Glucose (mg/dL) 131 H (75-99) mg/dL AST 39 H (14-36) U/L ALT 59 H (9-52) U/L Total Protein 5.4 L (6.3-8.2) g/dL Albumin 3.3 L (3.5-5.0) g/dL 10/12/16 Range/Units 07:40 RBC (3.80-5.40) m/uL Hgb (11.4-16.0) gm/dL Hct (34.0-46.0) % Lymphocytes # (1.0-4.8) k/uL BUN (7-17) mg/dL Glucose (74-99) mg/dL POC Glucose (mg/dL) 126 H (75-99) mg/dL AST (14-36) U/L ALT (9-52) U/L Total Protein (6.3-8.2) g/dL Albumin (3.5-5.0) g/dL Assessment and Plan (1) Hx of CABG Status: Acute (2) Acute non-ST segment elevation myocardial infarction (STEMI) following previous myocardial infarction Status: Acute (3) GERD (gastroesophageal reflux disease) Status: Acute (4) Hypertension Status: Acute Plan: Plan dated 10/10/2016 The patient continues to improve. We'll continue to follow. No additional recommendations are made. Chest tube out today. Plan dated 10/12/2016 The patient is postop day #5 status post one-vessel bypass grafting, BRAR to LAD. The patient will probably be discharged from the unit today. Not receiving any supplemental oxygen or IV fluids. The patient has a history of ischemic cardiomyopathy with an ejection fraction of 20% a history of left bundle branch block breast cancer chronic cough secondary secondary to radiation pneumonitis status post him cell transplant hypothyroidism hypertension and GERD. Time with Patient: Less than 30
--- NOTE | 2016-10-12 11:26 | XR ---
EXAMINATION TYPE: XR chest 1V portable DATE OF EXAM: 10/12/2016 6:20 AM COMPARISON: Prior chest x-ray dated October 2016 HISTORY: Status post coronary artery bypass graft, chest tube removal, cardiomegaly TECHNIQUE: Single frontal view of the chest is obtained. FINDINGS: There is no significant interval change. Patient is rotated. Suspect some improvement in v olume status, perihilar vascular indistinctness. There are overlying cardiac leads. Chronic elevation of the right hemidiaphragm again noted. IMPRESSION: No acute process. Cardiomegaly is stable.
[2016-10-12 12:37] LABS: Glucose,Whole Blood 106 mg/dL (75-99)
--- NOTE | 2016-10-12 15:09 | P.DS ---
Providers Date of admission: 10/05/16 16:45 Attending physician: Lito Oates Consults: 10/05/16 23:41 Consult Physician Routine Consulting Provider: Tamika Arechiga Consult Reason/Comments: knew the pt Do you want consulting provider notified?: Yes 10/06/16 14:35 Consult Physician Urgent Consulting Provider: Christopher Gibbons Consult Reason/Comments: cabg Do you want consulting provider notified?: Already Contacted 10/06/16 17:09 Consult Anesthesia Routine Consulting Provider: Anesthesia,Services Consult Reason/Comments: Cardiac Surgery Pre-Op 10/06/16 18:58 Consult Anesthesia Routine Consulting Provider: Anesthesia,Services Consult Reason/Comments: Cardiac Surgery Pre-Op Consult Physician Routine Consulting Provider: Tamika Arechiga Consult Reason/Comments: pulmonary management Do you want consulting provider notified?: Yes Primary care physician: Tamika Arechiga [place] [facility] Course: FINAL DIAGNOSIS: 1.[Symptomatic single vessel coronary artery disease] 2.[Severe ischemic cardiomyopathy with estimated ejection fraction less than 20% ] 3.[Non ST elevation myocardial infarction this admission] 4.[Left bundle branch block pattern on EKG] 5.[Hypertension] 6.[Hypothyroidism] 7.[Chronic cough secondary to radiation pneumonitis] 8.[History of breast cancer status post bilateral mastectomy/radiation, BRCA gene positive] 9.[Stem cell transplant in 1994] 10.[Gastroesophageal reflux disease] 11.[Asthma] 12.[History of right lung nodule] PRINCIPAL PROCEDURE: 1.[Urgent off-pump coronary artery bypass grafting 1 with placement of her left internal mammary artery to her left anterior descending coronary artery.] 2.[Insertion of intra-aortic balloon pump] HISTORY OF PRESENT ILLNESS: [This is a 66-year-old female patient who is followed by Dr. Tamika Arechiga on an outpatient basis. On 10/05/2016 the patient presented to the emergency Department [facility] with complaints of chest pain which was radiating to her left shoulder and neck, she denied shortness of breath or nausea at that time. A 12-lead EKG was completed at [facility] emergency department which did show ST segment depression and after given a nitroglycerin subsequently her 12-lead EKG showed ST segment elevation. Due to her presenting symptoms of chest pain and EKG changes she was transferred here to [facility] emergency department for further evaluation and cardiac workup. A repeat 12-lead EKG was completed which did demonstrate a left bundle branch block pattern. She was subsequently evaluated by Dr. Squires from [facility]ology [facility]. Cardiac workup was completed which did demonstrate elevated troponins as high as 4.260, which were discussed with the patient and a cardiac catheterization was recommended.] HOSPITAL COURSE:[After obtaining consent the patient underwent an urgent cardiac catheterization which did demonstrate a 20-30% stenosis to her left main coronary artery, and a 99% stenosis to her left anterior descending coronary artery. For further workup the patient underwent a 2-D echocardiogram which showed mild aortic stenosis, a peak/mean gradient across the aortic valve of 21.02/and 11.67 mmHg, mild mitral regurgitation, mild tricuspid regurgitation , and an overall left ventricular systolic function to be severely impaired with an ejection fraction of less than 20%. The above mentioned studies were reviewed with the patient by Dr. Coleman and by Dr. Gibbons who recommended the patient undergo an urgent coronary artery bypass grafting surgery. After obtaining consent the patient underwent an urgent off-pump coronary artery bypass grafting surgery 1 with placement of her left internal mammary artery to her left anterior descending coronary artery, and insertion of an intra-aortic balloon pump. The patient was then transferred to the cardiovascular intensive care unit where she was recovered, monitored hemodynamically, and where she progressed to cardiac rehabilitation phase 1. The patient was kept in the ICU on a stepdown monitoring schedule due to availability of beds on the stepdown unit. A repeat 2-D echo was completed which did demonstrate a continued ejection fraction of less than 20%. The patient will be fitted for a LifeVest prior to discharge.] COMPLICATIONS: [There were no postoperative competition.] CONSULTATIONS: 1.[Dr. Hawk jasmine for pulmonary and ventilator management.] 2.[Dr. Oates for medical management.] 3.[Dr. Coleman for cardiology management.] DISCHARGE INSTRUCTIONS: 1. No driving for 4 weeks, or until physician gives their ok. 2. The patient should sleep in their own , no medical bed needed. 3. Stairs are not an issue. If the bedroom is upstairs, it is advised that the patient go up at night and down in the morning for the first week. Go slowly, using handrail and take 1 step at a time. 4. JACKIE hose are to be worn for 30 days or until physician discontinues. 5. Heart hugger is to be worn 100% of the time until physician discontinues.( excepet when showering) 6. No lifting, pushing, or pulling more than 10 pounds for 12 weeks. The physician will advise of any restriction changes. 7. The patient is expected to continue the prescribed walking program. 8. Continue pain control per as needed orders. 9. Continue with incentive spirometry and splinting/heart hugger until otherwise directed by the physician. 10. Must shower daily using liquid antibacterial soap and a separate white washcloth for each individual incision. 11. Please remove Silverlon chest dressing on 10/14/2016 with routine sternal incision care thereafter. HOME HEALTH SERVICES TO PROVIDE: RN SKILLED HOME CARE SERVICES FOR POST-OP SURGICAL PATIENTS WITH THE FOLLOWING: Coronary Artery Bypass Surgery (CABG), Mitral Valve Replacement/ Repair ( MVR), Aortic Valve Replacement/Repair (AVR) RN TO CONTINUE EDUCATION FROM ``ROAD TO A HEALTH HEART PATIENT EDUCATION MANUAL (GIVEN TO PATIENT IN THE HOSPITAL) MEDICATION RECONCILIATION WITH EDUCATION NEEDED ON FIRST HOME VISIT EMPHASIZE IMPORTANCE OF WEARING BREAST SUPPORT/HEART HUGGER ENCOURAGE USE OF INCENTIVE SPIROMETER 10 X EVERY HOUR WHILE AWAKE ENCOURAGE UTILIZATION OF LOWER EXTREMITY COMPRESSION STOCKINGS/JACKIE HOSE and ELEVATE LEGS ABOVE LEVEL OF HEART WHILE AT REST. ENCOURAGE AMBULATION 3-5x/day INCREASING TOLERATES, WHILE AVOID EXTREMES IN TEMPERATURE FREQUENCY: RN TO OPEN THE PATIENT WITHIN 24 HOURS OF DISCHARGE FROM THE HOSPITAL WITH TELEHEALTH INSTALLED AT [facility] [place], RN TO VISIT 2-3 X A WEEK FOR 4 WEEKS ESTABLISHED BY PATIENT NEEDS. LABORATORY: CBC, CMP TO BE DRAWN ON THE THIRD DAY HOME, Saturday10/15/2016 (RAN STAT) FAX RESULTS TO [phone]. TELEHEALTH PARAMETERS: WEIGHT: NOTIFY MD OF WEIGHT GAIN OF 2 LBS IN 24 HOURS OR 5 LBS IN ONE WEEK HR: NOTIFY MD OF HR <55 BPM OR HR>100 BPM BP: NOTIFY MD IF BP <90/55 OR BP>140/100 O2 SAT: NOTIFY MD IF PO2<93% ON ROOM AIR SEND TELEHEALTH REPORT TO ORTHOPEDIC NURSE PRACTITIONER AND CARDIOVASCULAR SURGEON THE FIRST WEEK OF CARE AND THEN BI-WEEKLY. PLEASE ADDITIONALLY COMMUNICATE ANY ABNORMALS AND NEW FINDINGS TO THE SURGEONS OFFICE. The patient will be discharged home with a LifeVest in place. Due to the patient's elevated liver enzymes she will not be sent home with a statin, but will be further evaluated on an outpatient basis. Plan - Discharge Summary New Discharge Prescriptions: Aspirin 325 mg PO DAILY #30 tab Carvedilol [Coreg] 6.25 mg PO BID-W/MEALS #60 tab Clopidogrel [Plavix] 75 mg PO DAILY #30 tab Docusate [Colace] 100 mg PO BID #60 cap HYDROcodone/APAP 5-325MG [Childress 5-325] 1 each PO Q4HR PRN #60 tab PRN Reason: Pain Lisinopril [Prinivil] 2.5 mg PO DAILY #30 tablet Discharge Medication List Ibuprofen/Diphenhydramine HCl [Advil Pm Liqui-Gels] 1 cap PO HS 02/14/16 [ History] Levothyroxine Sodium [Synthroid] 50 mcg PO HS 02/14/16 [History] Omeprazole 20 mg PO HS 02/14/16 [History] Aspirin 325 mg PO DAILY #30 tab 10/12/16 [Rx] Budesonide-Formot 160-4.5 Mcg [Symbicort 160-4.5 Mcg Inhaler] 2 puff INHALATION RT-BID puff 10/12/16 [Rx] Carvedilol [Coreg] 6.25 mg PO BID-W/MEALS #60 tab 10/12/16 [Rx] Clopidogrel [Plavix] 75 mg PO DAILY #30 tab 10/12/16 [Rx] Docusate [Colace] 100 mg PO BID #60 cap 10/12/16 [Rx] HYDROcodone/APAP 5-325MG [Childress 5-325] 1 each PO Q4HR PRN #60 tab 10/12/16 [Rx] Lisinopril [Prinivil] 2.5 mg PO DAILY #30 tablet 10/12/16 [Rx] Follow up Appointment(s)/Referral(s): Tamika Arechiga MD [Primary Care Provider] - 10/19/16 2:45 pm Drew Coleman MD [STAFF PHYSICIAN] - 10/24/16 10:30 am [facility], [NON-STAFF] - 1 Week Christopher Gibbons MD [STAFF PHYSICIAN] - 11/02/16 9:30 am
[2016-10-12 16:46] LABS: Glucose,Whole Blood 134 mg/dL (75-99)
--- NOTE | 2016-10-12 19:11 | PN ---
DATE OF SERVICE: 10/12/2016 This 66-year-old woman with a past medical history of multiple medical problems was admitted with acute ezb-LZ-aizkcgd-elevation myocardial infarction. Patient had CABG by Dr. Gibbons. Otherwise, the patient is being closely monitored. The patient also had respiratory failure, especially while lying down. Her most recent chest x-ray done today showed no acute process with cardiomegaly. The patient currently is slated to go home rather than ECF at this time. Past medical history reviewed. REVIEW OF SYSTEMS: CARDIOVASCULAR SYSTEM: No angina, palpitations. RESPIRATORY SYSTEM: As mentioned earlier. GI: As mentioned earlier. : No dysuria. NERVOUS SYSTEM: Mild generalized weakness. Current medications are reviewed and include: 1. Saco 5 mg q.4 p.r.n. 2. DuoNeb q.i.d. and p.r.n. 3. Xanax. 4. Aspirin 325 mg daily. 5. Dulcolax. 6. Symbicort 160/4.5 two puffs b.i.d. 7. Coreg 6.25 mg p.o. b.i.d. 8. Plavix 75 mg p.o. daily. 9. Colace 100 mg p.o. b.i.d. 10. Heparin 5000 units subcutaneously q.8. 11. Synthroid 50 mcg p.o. daily. 12. Milk of Magnesia. 13. Solu-Medrol 40 IV b.i.d. PHYSICAL EXAMINATION: Patient is alert and oriented x3. Pulse 88, blood pressure 120/72, respiration 18, temperature 97.8, pulse ox 97% on room air. HEENT: Conjunctivae normal. NECK: No jugular venous distention. CARDIOVASCULAR SYSTEM: S1, S2 muffled. RESPIRATORY: Breath sounds diminished at the bases. A few scattered rhonchi and crackles, especially in the bases posteriorly. ABDOMEN: Soft, nontender. LEGS: No edema. No swelling. NERVOUS SYSTEM: Mild diffuse weakness. LYMPHATICS: No lymph node palpable in neck, axilla or groin. SKIN: No ulcer, rash or bleeding. LABS: WBC 7.2, hemoglobin 9.1. AST, ALT noted. ASSESSMENT: 1. Possible nlh-YF-ivqbxmc-elevation myocardial infarction, present on admission, status post cardiac catheterization as well as left anterior descending coronary artery disease, status post coronary artery bypass graft. 2. History of congestive heart failure with chronic systolic dysfunction; ejection fraction less than 20%, possibly secondary to cardiomyopathy. 3. Mild valvular abnormalities, including aortic valve stenosis, mitral calcification, mitral regurgitation on the 2-D echo. 4. Left bundle branch block on EKG. 5. Troponin elevated up to 4.260 on admission. 6. Hypertension. 7. Increased random blood sugar. 8. Increased white count, possibly reactive. 9. Asthma, history. 10. History of gastroesophageal reflux disease. 11. Hypertension. 12. Hypothyroidism. 13. History of breast cancer. 14. History of right lung nodule. 15. History of cholecystectomy. 16. History of bone marrow transplant in 1994. 17. History of anemia, postoperative, as expected; multifactorial. 18. FULL CODE. RECOMMENDATIONS AND DISCUSSION: In this 66-year-old woman who presented with multiple complex medical issues, we will monitor the patient closely, continue the current medication, symptomatic treatment. I recommend continuing with home medications, bronchodilators antiplatelet agents, beta blockers. Will closely follow the patient with you and with Cardiothoracic Surgery. Otherwise, guarded prognosis because of multiple complex medical issues. Continue to monitor. Prognosis guarded. See orders for further details.
[2016-10-12] MEDS: IPRATROPIUM-ALBUTEROL 3 ML NEB INHALATION PRN (20:02)
[2016-10-12 20:58] LABS: Glucose,Whole Blood 137 mg/dL (75-99)
[2016-10-12] MEDS: PANTOPRAZOLE 40 MG TABLET PO SCH (20:58)
[2016-10-12] MEDS: LEVOTHYROXINE 50 MCG TAB PO SCH (20:58)
[2016-10-12] MEDS: HYDROcodone/APAP 5-325MG 1 EACH TAB PO PRN (21:08)
[2016-10-13 01:34] LABS: Glucose,Whole Blood 148 mg/dL (75-99)
[2016-10-13] MEDS: INSULIN LISPRO (humaLOG) 300 UNIT/3 ML VIAL SQ SCH ×2 (01:34→08:27)
[2016-10-13] MEDS: IPRATROPIUM-ALBUTEROL 3 ML NEB INHALATION PRN ×2 (02:52→07:56)
[2016-10-13 05:10] LABS: Basophils % (A) 0 %; CH 30.4; CHCM 32.5; Eosinophils % (A) 0 %; HCT 29.8 % (34.0-46.0); HDW 2.81; HGB 9.6 gm/dL (11.4-16.0); Luc # (Auto) 0.08; Luc % (Auto) 1; Lymphocytes # (A) 0.9 k/uL (1.0-4.8); Lymphocytes % (A) 12 %; MCH 30.4 pg (25.0-35.0); MCHC 32.3 g/dL (31.0-37.0); MCV 94.2 fL (80.0-100.0); Mean Platelet Volume 7.7; Monocytes # (A) 0.5 k/uL (0-1.0); Monocytes % (A) 6 %; Neutrophils # (A) 6.6 k/uL (1.3-7.7); Neutrophils % (A) 82 %; RBC 3.17 m/uL (3.80-5.40); RDW 15.2 % (11.5-15.5); WBC (Perox) 8.11
[2016-10-13 05:28] LABS: ALT 65 U/L (9-52); AST 38 U/L (14-36); Alkaline Phosphatase 110 U/L (38-126); Anion Gap 13 mmol/L; Blood Urea Nitrogen 43 mg/dL (7-17); Calcium 9.3 mg/dL (8.4-10.2); Carbon Dioxide 25 mmol/L (22-30); Chloride 103 mmol/L (98-107); Glucose 137 mg/dL (74-99); Magnesium 2.3 mg/dL (1.6-2.3); Non-African American GFR(MDRD) 59 (>60 ml/min/1.73 sqM); Phosphorous 4.5 mg/dL (2.5-4.5); Potassium 5.2 mmol/L (3.5-5.1); Sodium 141 mmol/L (137-145); Total Bilirubin 0.7 mg/dL (0.2-1.3); Total Protein 6.1 g/dL (6.3-8.2)
[2016-10-13] MEDS: SYMBICORT 160-4.5 MCG INHALER INHALATION SCH (07:56)
[2016-10-13 07:58] LABS: Glucose,Whole Blood 126 mg/dL (75-99)
[2016-10-13 08:21] VITALS: BP 127/63; PULSE 90; RESP 20; TEMP 97
[2016-10-13] MEDS: ASPIRIN 325 MG TAB PO SCH (08:28)
[2016-10-13] MEDS: HEPARIN SODIUM,PORCINE 5,000 UNIT/ML 1 ML VIAL SQ SCH (08:28)
[2016-10-13] MEDS: methylPREDNISolone SOD SUCCI 40 MG/ML 1 ML VIAL IV SCH (08:29)
[2016-10-13] MEDS: DOCUSATE 100 MG CAP PO SCH ×2 (08:29→08:32)
[2016-10-13] MEDS: CLOPIDOGREL 75 MG TAB PO SCH (08:29)
[2016-10-13] MEDS: CARVEDILOL 6.25 MG TAB PO SCH (08:30)
--- NOTE | 2016-10-13 10:45 | ECHOF ---
Referral Reason:assess LVEF for possible LV @ DC MEASUREMENTS -------- HEIGHT: 162.6 cm WEIGHT: 92.5 kg BP: 118/56 RVIDd: 2.8 cm (< 3.3) IVSd: 0.9 cm (0.6 - 1.1) LVIDd: 4.6 cm (3.9 - 5.3) LVPWd: 0.9 cm (0.6 - 1.1) IVSs: 1.1 cm LVIDs: 4.2 cm LVPWs: 1.3 cm LA Diam: 3.3 cm (2.7 - 3.8) MV E Blaine: 1.11 m/s MV DecT: 106 ms MV A Blaine: 0.58 m/s MV E/A Ratio: 1.90 AR PHT: 350 ms RAP: 5.00 mmHg RVSP: 24.33 mmHg FINDINGS -------- Sinus rhythm. This was a technically adequate study. Limited Study The left ventricular size is normal. Left ventricular wall thickness is normal. Overall left ventricular systolic function is severely impaired with, an EF between 25 - 30 %. There is evidence of paradoxical septal motion. Apical anterior LV wall motion is hypokinetic. Apical lateral LV wall motion is hypokinetic. Apical inferior LV wall motion is hypokinetic. Apical septum LV wall motion is hypokinetic. Atypical septal wall motion The right ventricle is normal in size and function. 1.5mg of Definity was utilized for enhancement of images There is eakj-pj-ebbzcgta aortic regurgitation. Mild mitral regurgitation is present. There is no pericardial effusion. CONCLUSIONS -------- 1. Sinus rhythm. 2. Apical inferior LV wall motion is hypokinetic. 3. Apical septum LV wall motion is hypokinetic. 4. Atypical septal wall motion 5. The right ventricle is normal in size and function. 6. 1.5mg of Definity was utilized for enhancement of images 7. There is fdkh-hp-ztgkzufq aortic regurgitation. 8. Mild mitral regurgitation is present. 9. There is no pericardial effusion. 10. This was a technically adequate study. 11. Limited Study 12. The left ventricular size is normal. 13. Left ventricular wall thickness is normal. 14. Overall left ventricular systolic function is severely impaired with, an EF between 25 - 30 %. 15. There is evidence of paradoxical septal motion. 16. Apical anterior LV wall motion is hypokinetic. 17. Apical lateral LV wall motion is hypokinetic. EXTERNAL GRINDER: Janiya Crawford RDCS
--- NOTE | 2016-10-14 07:29 | P.PN ---
Progress Note - Text CV Surgery Nursing POD: #4, urgent off pump coronary artery bypass grafts 1 utilizing left internal mammary artery to left anterior descending coronary artery, insertion of intra-aortic balloon pump, intraoperative transesophageal echocardiogram and epi-aortic ultrasonography. Patient awake and alert, no distress noted, no specific complaints. She is sitting up to bedside chair. Vital Signs: Afebrile Vital Signs - 24 hr 10/12/16 10/12/16 10/12/16 12:00 16:00 20:00 Temperature 97.7 F 97.8 F 98.4 F Pulse Rate Pulse Rate [ 82 88 92 Strawhat Blocking Operator ] Pulse Rate [ 97 97 Pulse Oximetery ] Respiratory 20 18 18 Rate Blood Pressure 118/56 122/72 117/62 [Right Arm] O2 Sat by Pulse 97 97 Oximetry 10/12/16 10/13/16 10/13/16 23:30 02:44 02:55 Temperature 98.2 F Pulse Rate 83 84 Pulse Rate [ 86 Strawhat Blocking Operator ] Pulse Rate [ Pulse Oximetery ] Respiratory 19 Rate Blood Pressure 107/62 [Right Arm] O2 Sat by Pulse 97 Oximetry 10/13/16 10/13/16 03:42 07:58 Temperature 96.6 F L Pulse Rate 87 Pulse Rate [ 84 Strawhat Blocking Operator ] Pulse Rate [ Pulse Oximetery ] Respiratory 14 Rate Blood Pressure 117/62 [Right Arm] O2 Sat by Pulse 98 Oximetry Labs: Short CBC 10/13/16 Range/Units 04:54 WBC 8.0 (3.8-10.6) k/uL Hgb 9.6 L (11.4-16.0) gm/dL Hct 29.8 L (34.0-46.0) % Plt Count 297 (150-450) k/uL Neutrophils # 6.6 (1.3-7.7) k/uL BMP 10/13/16 04:54 Sodium 141 Potassium 5.2 H Chloride 103 Carbon Dioxide 25 BUN 43 H Creatinine 0.95 Glucose 137 H Calcium 9.3 Liver Function 10/13/16 Range/Units 04:54 Total Bilirubin 0.7 (0.2-1.3) mg/dL AST 38 H (14-36) U/L ALT 65 H (9-52) U/L Alkaline Phosphatase 110 (38-126) U/L Albumin 3.4 L (3.5-5.0) g/dL Lungs: Few scattered rhonchi throughout, diminished bilateral bases. Respirations are unlabored. O2 sat: 98% on room air. I/S: 1250 mL, reviewed with the patient the importance of using her incentive spirometry every hour while awake. The patient did give a good return demonstration on her incentive spirometry. It was also reviewed with the patient to continue to use her incentive spirometry post discharge. Heart: S1S2, regular rhythm and rate, negative for murmur, S3 or gallop. Bedside telemetry showing normal sinus rhythm heart rate 91. Sternum stable, chest incision clean with silverlon dressing clean and dry. Heart hugger in place. Patient demonstrates good use heart hugger. Knee-high JACKIE hose in place to bilateral lower extremities. +2 edema to her bilateral lower extremities. +3 edema to her left arm. Abdomen: Soft, Positive bowel sounds present in all 4 quadrants. Patient states she had a bowel movement yesterday 10/12/2015. CBGs: 106-148 mg/dL in the last 24 hours. U/O: Adequate, 500 mL output in the last 8 hours. 24 hr Total: Intake & Output 10/11/16 10/12/16 10/13/16 10/14/16 06:59 06:59 06:59 06:59 Intake Total 505 600 730 Output Total 1300 0 1750 175 Balance -795 600 -1020 -175 Weight 88.6 kg 92.6 kg 84.6 kg Active Medications Generic Name Dose Route Start Last Admin Trade Name Freq PRN Reason Stop Dose Admin Acetaminophen/Hydrocodone Bitart 1 each 10/08/16 17:46 10/12/16 21:08 [place] 5-325 PO 1 each Q4HR PRN Administration Pain Acetaminophen/Hydrocodone Bitart 2 each 10/08/16 17:46 10/10/16 21:22 [place] 5-325 PO 2 each Q4HR PRN Administration Pain Albuterol/Ipratropium 3 ml 10/11/16 11:21 10/13/16 07:56 Duoneb 0.5 Mg-3 Mg/3 Ml Soln INHALATION 3 ml RT-QID PRN Administration Shortness Of Breath Or Wheezing Alprazolam 0.25 mg 10/06/16 07:12 10/06/16 08:13 Xanax PO 0.25 mg Q6HR PRN Administration Mild Anxiety Alprazolam 0.5 mg 10/06/16 07:12 10/12/16 01:21 Xanax PO 0.5 mg Q6HR PRN Administration Moderate Anxiety Aspirin 325 mg 10/06/16 09:00 10/12/16 09:53 Aspirin PO 325 mg DAILY BERONICA Administration Bisacodyl 10 mg 10/08/16 15:38 Dulcolax RECTAL DAILY PRN Constipation Budesonide/Formoterol Fumarate 2 puff 10/06/16 08:00 10/13/16 07:56 Symbicort 160-4.5 Mcg Inhaler INHALATION 2 puff RT-BID BERONICA Administration Carvedilol 6.25 mg 10/10/16 07:30 10/12/16 18:28 Coreg PO 6.25 mg BID-W/MEALS BERONICA Administration Clopidogrel Bisulfate 75 mg 10/08/16 09:00 10/12/16 09:54 Plavix PO 75 mg DAILY BERONICA Administration Docusate Sodium 100 mg 10/09/16 21:00 10/12/16 20:57 Colace PO 100 mg BID BERONICA Administration Heparin Sodium (Porcine) 5,000 unit 10/08/16 16:00 10/12/16 23:35 Heparin SQ 5,000 unit Q8HR BERONICA Administration Insulin Human Lispro 0 unit 10/10/16 12:30 10/13/16 01:34 Humalog SQ 2 unit [id number] BERONICA Administration Protocol Levothyroxine Sodium 50 mcg 10/06/16 01:00 10/12/16 20:58 Synthroid PO 50 mcg HS BERONICA Administration Magnesium Hydroxide 2,400 mg 10/11/16 08:59 10/11/16 11:34 Milk Of Magnesia PO 2,400 mg DAILY PRN Administration Constipation Methylprednisolone Sodium Succinate 40 mg 10/08/16 21:00 10/12/16 20:58 Solu-Medrol IV 40 mg Q12HR BERONICA Administration Miscellaneous Information 1 each 10/07/16 22:30 Magnesium Per Protocol MISCELLANE DAILY PRN Per Protocol Protocol Miscellaneous Information 1 each 10/07/16 22:30 Phosphorus Per Protocol MISCELLANE DAILY PRN Per Protocol Protocol Miscellaneous Information 1 each 10/07/16 22:30 Potassium Per Protocol MISCELLANE DAILY PRN Per Protocol Protocol Nitroglycerin 0.4 mg 10/06/16 07:12 Nitrostat SUBLINGUAL Q5M PRN Chest Pain Ondansetron HCl 4 mg 10/08/16 08:21 Zofran IVP Q6HR PRN Nausea And Vomiting Pantoprazole Sodium 40 mg 10/06/16 01:00 10/12/16 20:58 Protonix PO 40 mg HS BERONICA Administration Sodium Chloride 10 ml 10/10/16 21:00 10/12/16 20:59 Saline Flush IV 10 ml Q12HR BERONICA Administration Plan: The patient will be discharged home today followed by home health care. Discharge instructions reviewed with the patient. She will be discharged home with a [facility].
--- NOTE | 2016-10-17 10:48 | P.VSCSTY ---
Greater Saphenous Vein Mapping This is bilateral lower extremity greater saphenous vein mapping. Date of service 10/06/2016 Vein quality and ultrasound appearance normal. Vein size groin right 5.2 x 6.4 groin left 4.4 x 5.6 High thigh right 8.45 x 5.4 high thigh left 4.6 x 5.2 Mid thigh right 5.4 x 6.3 mid thigh left 3.7 x 4.7 Above-knee right 3.3 x 3.2 above- knee left 2.9 x 3.4 Below knee right 2.8 x 2.8 below-knee left 2.8 x 2.7 Mid calf right 2.9 x 2.6 mid calf left 2.3 x 2.7 Ankle right 2.5 x 3.2 ankle left 2.3 x 2.6 Impression usable bilateral greater saphenous vein. Upper thigh may be somewhat large..
--- NOTE | 2016-10-17 10:49 | P.ARTDOP ---
Arterial Doppler LOWER EXTREMITY ARTERIAL DOPPLER: DATE OF SERVICE: 10/06/2016 Reason for study: Pre- CABG. Doppler waveforms: Multiphasic bilaterally throughout. Pulse volume recording: []. Pressure gradients: None. Ankle-brachial indices: Greater than 1 bilaterally. Toe pressures: [] on the right, [] on the left Impression: Normal study.
== END 2016-10-13 10:28 | disposition home health service (06) | DRG 234 ==
LOC: EC 14:30 → 6SEL 16:45 → 6ICU 10-07 07:31
PROVIDERS: ADMIT Hospitalist; ATTEND Surgery
DX: I21.4 Non-ST elevation (NSTEMI) myocardial infarction (principal); I50.22 Chronic systolic (congestive) heart failure; Z94.81 Bone marrow transplant status; I11.0 Hypertensive heart disease with heart failure; I08.3 Combined rheumatic disorders of mitral, aortic and tricuspid valves; J98.11 Atelectasis; Z94.84 Stem cells transplant status; I44.7 Left bundle-branch block, unspecified; E03.9 Hypothyroidism, unspecified; D64.9 Anemia, unspecified; I25.10 Atherosclerotic heart disease of native coronary artery without angina pectoris; E78.5 Hyperlipidemia, unspecified; I25.5 Ischemic cardiomyopathy; J45.909 Unspecified asthma, uncomplicated; K21.9 Gastro-esophageal reflux disease without esophagitis; Z79.82 Long term (current) use of aspirin; Z79.52 Long term (current) use of systemic steroids; Z79.899 Other long term (current) drug therapy; Z85.3 Personal history of malignant neoplasm of breast; Z85.72 Personal history of non-Hodgkin lymphomas; Z92.3 Personal history of irradiation; Z82.49 Family history of ischemic heart disease and other diseases of the circulatory system
CPT/HCPCS: 36415; 36620; 71010; 80048; 80053; 80061; 80074; 81003; 82272; 82330; 82550; 82553; 82805; 83036; 83735; 83880; 84100; 84132; 84443; 84484; 85025; 85520; 85610; 85730; 86850; 86891; 86900; 86901; 86920; 87070; 87086; 93005; 93306; 93308; 93458; 93880; 93923; 93970; 94002; 94150; 94640; 99291

== ENCOUNTER 2016-11-13 14:50 | Inpatient (IN) | payer MEDICARE, BC ==
[2016-11-13] MEDS ORDERED: SODIUM CHLORIDE 0.9% 1,000 ML IV STA (15:28)
--- NOTE | 2016-11-13 15:31 | ED ---
General Adult HPI - General Chief complaint: Dizziness Stated complaint: Dizziness Time Seen by Provider: 11/13/16 15:13 Source: patient, EMS, RN notes reviewed Mode of arrival: EMS Limitations: no limitations - History of Present Illness Initial comments: Patient is a pleasant 66-year-old female presenting to the emergency department with lightheadedness. Patient did have open-heart surgery done over a month ago. Patient has been having problems since that time. Symptoms have increased mostly over the past few days. Patient did have her Lasix doubled 5 days ago. Patient has had some persistent mild dyspnea. Symptoms are usually worse with getting up and movement. Patient went to cardiac rehab today and blood pressure was found to be low. Patient states she is symptom-free at this time while lying in bed. - Related Data Home Medications Medication Instructions Recorded Confirmed Levothyroxine Sodium [Synthroid] 50 mcg PO HS 02/14/16 11/13/16 Omeprazole 20 mg PO HS 02/14/16 11/13/16 Atorvastatin [Lipitor] 40 mg PO DAILY 11/13/16 11/13/16 Carvedilol [Coreg] 6.25 mg PO BID 11/13/16 11/13/16 Furosemide [Lasix] 20 mg PO BID 11/13/16 11/13/16 Lisinopril [Prinivil] 2.5 mg PO HS 11/13/16 11/13/16 Previous Rx's Medication Instructions Recorded Aspirin 325 mg PO DAILY #30 tab 10/12/16 Clopidogrel [Plavix] 75 mg PO DAILY #30 tab 10/12/16 Allergies Allergy/AdvReac Type Severity Reaction Status Date / Time No Known Allergies Allergy Verified 11/13/16 15:33 Review of Systems ROS Statement: Those systems with pertinent positive or pertinent negative responses have been documented in the HPI. ROS Other: All systems not noted in ROS Statement are negative. Constitutional: Denies: fever Eyes: Denies: eye pain ENT: Denies: ear pain Respiratory: Reports: dyspnea. Denies: cough Cardiovascular: Denies: chest pain Endocrine: Reports: fatigue Gastrointestinal: Denies: abdominal pain Genitourinary: Denies: dysuria Musculoskeletal: Denies: back pain Skin: Denies: rash Neurological: Denies: headache Past Medical History Past Medical History: Asthma, GERD/Reflux, Hypertension, Thyroid Disorder Additional Past Medical History / Comment(s): Breast cancer status post bilateral mastectomy and radiation, rt lung nodule(cancerous/was removed). BRCA gene positive History of Any Multi-Drug Resistant Organisms: None Reported Past Surgical History: Appendectomy, Cholecystectomy, Hysterectomy Additional Past Surgical History / Comment(s): Bone marrow transplant 1994, lanie mstectomy/radiation. 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 is independant. Smoking Status: Never smoker Past Alcohol Use History: None Reported Past Drug Use History: None Reported - Past Family History Mother Family Medical History: Diabetes Mellitus Additional Family Medical History / Comment(s): heart valve replacment Father Family Medical History: Cancer Additional Family Medical History / Comment(s): lung cancer Sister(s) Family Medical History: Cancer Additional Family Medical History / Comment(s): breast cancer General Exam Limitations: no limitations General appearance: alert, in no apparent distress Head exam: Present: atraumatic Eye exam: Present: normal appearance, PERRL ENT exam: Present: normal oropharynx Neck exam: Present: normal inspection Respiratory exam: Present: normal lung sounds bilaterally Cardiovascular Exam: Present: regular rate, normal rhythm GI/Abdominal exam: Present: soft. Absent: tenderness Extremities exam: Present: normal inspection. Absent: pedal edema, calf tenderness Neurological exam: Present: alert, oriented X3. Absent: motor sensory deficit Psychiatric exam: Present: normal affect, normal mood Skin exam: Absent: rash Course Vital Signs 11/13/16 11/13/16 11/13/16 14:56 15:15 15:58 Temperature 96.7 F L Pulse Rate 88 82 84 Pulse Rate [ Fast Food Shift Lead ] Respiratory 18 18 18 Rate Blood Pressure 167/114 97/49 126/51 Blood Pressure [Right Arm] O2 Sat by Pulse 99 100 100 Oximetry 11/13/16 11/13/16 16:17 16:18 Temperature Pulse Rate Pulse Rate [ 84 85 Fast Food Shift Lead ] Respiratory Rate Blood Pressure Blood Pressure 96/52 98/55 [Right Arm] O2 Sat by Pulse Oximetry EKG Findings - EKG Comments: EKG Findings:: Sinus rhythm at 85. First-degree AV block with a VA of 212. QRS 146. QT 412. QTC 490. Superior axis. Nonspecific intraventricular block. No acute ST change. Medical Decision Making - Medical Decision Making Patient reevaluated and states she did feel only slightly lightheaded with standing up. She states her symptoms are more concerning with exertion, especially exertional dyspnea. Case was discussed in detail with Dr. Smith from cardiology who does recommend admission. Case also discussed with Dr. Farias, who will admit for Dr. Arechiga. - Lab Data Result diagrams: 11/13/16 14:52 11/13/16 14:52 Lab Results 11/13/16 11/13/16 11/13/16 Range/Units 14:52 14:52 14:52 WBC 7.0 (3.8-10.6) k/uL RBC 3.41 L (3.80-5.40) m/uL Hgb 10.0 L (11.4-16.0) gm/dL Hct 30.6 L (34.0-46.0) % MCV 89.7 (80.0-100.0) fL MCH 29.4 (25.0-35.0) pg MCHC 32.8 (31.0-37.0) g/dL RDW 14.8 (11.5-15.5) % Plt Count 225 (150-450) k/uL Neutrophils % 56 % Lymphocytes % 29 % Monocytes % 10 % Eosinophils % 2 % Basophils % 0 % Neutrophils # 3.9 (1.3-7.7) k/uL Lymphocytes # 2.0 (1.0-4.8) k/uL Monocytes # 0.7 (0-1.0) k/uL Eosinophils # 0.1 (0-0.7) k/uL Basophils # 0.0 (0-0.2) k/uL Hypochromasia Moderate Poikilocytosis Slight PT (9.0-12.0) sec INR (<1.1) APTT (22.0-30.0) sec Sodium 141 (137-145) mmol/L Potassium 3.2 L (3.5-5.1) mmol/L Chloride 98 (98-107) mmol/L Carbon Dioxide 30 (22-30) mmol/L Anion Gap 13 mmol/L BUN 21 H (7-17) mg/dL Creatinine 1.33 H (0.52-1.04) mg/dL Est GFR (MDRD) Af Amer 48 (>60 ml/min/1.73 sqM) Est GFR (MDRD) Non-Af 40 (>60 ml/min/1.73 sqM) Glucose 90 (74-99) mg/dL Calcium 7.4 L (8.4-10.2) mg/dL Total Bilirubin 0.8 (0.2-1.3) mg/dL AST 37 H (14-36) U/L ALT 39 (9-52) U/L Alkaline Phosphatase 91 (38-126) U/L Total Creatine Kinase 88 (30-135) U/L CK-MB (CK-2) 1.0 (0.0-2.4) ng/mL CK-MB (CK-2) Rel Index 1.1 Troponin I 0.039 H* (0.000-0.034) ng/mL NT-Pro-B Natriuret Pep pg/mL Total Protein 6.0 L (6.3-8.2) g/dL Albumin 3.1 L (3.5-5.0) g/dL 11/13/16 11/13/16 Range/Units 14:52 14:52 WBC (3.8-10.6) k/uL RBC (3.80-5.40) m/uL Hgb (11.4-16.0) gm/dL Hct (34.0-46.0) % MCV (80.0-100.0) fL MCH (25.0-35.0) pg MCHC (31.0-37.0) g/dL RDW (11.5-15.5) % Plt Count (150-450) k/uL Neutrophils % % Lymphocytes % % Monocytes % % Eosinophils % % Basophils % % Neutrophils # (1.3-7.7) k/uL Lymphocytes # (1.0-4.8) k/uL Monocytes # (0-1.0) k/uL Eosinophils # (0-0.7) k/uL Basophils # (0-0.2) k/uL Hypochromasia Poikilocytosis PT 13.2 H (9.0-12.0) sec INR 1.3 (<1.1) APTT 24.7 (22.0-30.0) sec Sodium (137-145) mmol/L Potassium (3.5-5.1) mmol/L Chloride (98-107) mmol/L Carbon Dioxide (22-30) mmol/L Anion Gap mmol/L BUN (7-17) mg/dL Creatinine (0.52-1.04) mg/dL Est GFR (MDRD) Af Amer (>60 ml/min/1.73 sqM) Est GFR (MDRD) Non-Af (>60 ml/min/1.73 sqM) Glucose (74-99) mg/dL Calcium (8.4-10.2) mg/dL Total Bilirubin (0.2-1.3) mg/dL AST (14-36) U/L ALT (9-52) U/L Alkaline Phosphatase (38-126) U/L Total Creatine Kinase (30-135) U/L CK-MB (CK-2) (0.0-2.4) ng/mL CK-MB (CK-2) Rel Index Troponin I (0.000-0.034) ng/mL NT-Pro-B Natriuret Pep 9640 pg/mL Total Protein (6.3-8.2) g/dL Albumin (3.5-5.0) g/dL - Radiology Data Radiology results: image reviewed (Chest x-ray shows cardiomegaly. Stable hilar prominence. Left effusion.) Disposition Clinical Impression: Congestive heart failure (CHF) Disposition: ADMITTED IP TO THIS HOSP
[2016-11-13 15:46] LABS: Basophils % (A) 0 %; CH 28.6; CHCM 31.9; Eosinophils # (A) 0.1 k/uL (0-0.7); Eosinophils % (A) 2 %; HCT 30.6 % (34.0-46.0); HDW 3.91; Hypochromasia Moderate; Luc % (Auto) 3; Lymphocytes % (A) 29 %; MCH 29.4 pg (25.0-35.0); MCHC 32.8 g/dL (31.0-37.0); MCV 89.7 fL (80.0-100.0); Mean Platelet Volume 7.4; Monocytes # (A) 0.7 k/uL (0-1.0); Monocytes % (A) 10 %; Neutrophils # (A) 3.9 k/uL (1.3-7.7); Neutrophils % (A) 56 %; Poikilocytosis Slight; RBC 3.41 m/uL (3.80-5.40); RDW 14.8 % (11.5-15.5); WBC (Perox) 7.25
[2016-11-13 15:51] LABS: Calcium 7.4 mg/dL (8.4-10.2); Total Bilirubin 0.8 mg/dL (0.2-1.3)
[2016-11-13 15:53] LABS: INR 1.3 (<1.1); Partial Thromboplastin Time 24.7 sec (22.0-30.0); Prothrombin Time 13.2 sec (9.0-12.0)
[2016-11-13 15:55] LABS: Potassium 3.2 mmol/L (3.5-5.1)
--- NOTE | 2016-11-13 15:55 | XR ---
EXAMINATION TYPE: XR chest 2V DATE OF EXAM: 11/13/2016 3:50 PM COMPARISON: 10/19/2016 HISTORY: Weakness and hypotension FINDINGS: Postoperative change and severe cardiomegaly. Small left effusion. No pneumothorax. Hyperinflation mena ggests COPD. Degenerative change of the spine. IMPRESSION: 1. Cardiomegaly and chronic changes with stable hilar prominence. Pulmonary arterial hypertension the differential. This could be confirmed with CT of the chest exclude other etiologies. 2. Stable small pleural effusion.
[2016-11-13] MEDS ORDERED: POTASSIUM CHLORIDE ER 20 MEQ TAB.ER PO STA (15:58)
[2016-11-13 16:25] LABS: Troponin I 0.039 ng/mL (0.000-0.034)
[2016-11-13] MEDS: CARVEDILOL 6.25 MG TAB PO SCH (18:58)
[2016-11-13] MEDS ORDERED: IPRATROPIUM-ALBUTEROL 3 ML NEB INHALATION PRN (19:39)
[2016-11-13] MEDS ORDERED: IPRATROPIUM-ALBUTEROL 3 ML NEB INHALATION SCH (20:00)
[2016-11-13] MEDS ORDERED: PANTOPRAZOLE 40 MG TABLET PO SCH (21:00)
[2016-11-13] MEDS ORDERED: MELATONIN 3 MG TABLET PO SCH (21:00)
[2016-11-13] MEDS ORDERED: LISINOPRIL 2.5 MG TAB PO SCH (21:00)
[2016-11-13] MEDS ORDERED: LEVOTHYROXINE 50 MCG TAB PO SCH (21:00)
--- NOTE | 2016-11-13 22:06 | NM ---
EXAMINATION TYPE: NM pul vent and perfuse DATE OF EXAM: 11/13/2016 9:55 PM COMPARISON: NONE HISTORY: TECHNIQUE: Utilizing inhalation of 71.1 mCi Tc 99m DTPA aerosol and intravenous injection of 5.1 mCi of Tc 99m MAA, ventilation and perfusion images are acquired post injection in multiple projections. FINDINGS: There are multiple subsegmental and segmental sized ventilation perfusion matching defects bilaterall y. I see no mismatch. The chest x-ray today shows no pulmonary consolidation. Defects are worse in antoinette th upper lobes. IMPRESSION: Multiple bilateral matching defects are consistent with severe airway disease. There is overall a low to intermediate probability of pulmonary embolism.
[2016-11-13] MEDS: FUROSEMIDE 10 MG/ML 4 ML VIAL IV SCH (22:08)
[2016-11-13 22:54] LABS: Appearance,Urine Clear (Clear); Bilirubin,Urine Negative (Negative); Glucose,Urine (UA) Negative (Negative); Ketones,Urine Negative (Negative); Leukocyte Esterase,Urine Negative (Negative); Nitrite,Urine Negative (Negative); PH, Urine 5.5 (5.0-8.0); Protein,Urine Negative (Negative); Specific Gravity,Urine 1.005 (1.001-1.035); UA Billing (MACRO vs. MICRO) CHEM; Urobilinogen,Urine <2.0 mg/dL (<2.0)
[2016-11-14 05:36] VITALS: RESP 16
[2016-11-14] MEDS: CARVEDILOL 6.25 MG TAB PO SCH (06:33)
[2016-11-14] MEDS ORDERED: IPRATROPIUM-ALBUTEROL 3 ML NEB INHALATION SCH (08:00)
[2016-11-14] MEDS: FUROSEMIDE 10 MG/ML 4 ML VIAL IV SCH (08:50)
[2016-11-14] MEDS ORDERED: ASPIRIN 325 MG TAB PO SCH (09:00)
[2016-11-14] MEDS ORDERED: ATORVASTATIN 40 MG TAB PO SCH (09:00)
[2016-11-14] MEDS ORDERED: CLOPIDOGREL 75 MG TAB PO SCH (09:00)
[2016-11-14] MEDS ORDERED: ALPRAZolam 0.25 MG TAB PO PRN (10:38)
[2016-11-14 12:03] VITALS: BP 96/59; PULSE 89; TEMP 97.5
--- NOTE | 2016-11-14 13:25 | CONS ---
DATE OF CONSULTATION: Perla is a 66-year-old lady with a history of coronary artery disease, status post CABG and ischemic cardiomyopathy who presented to hospital because her blood pressures were low. She states that her systolic blood pressures were in the 70s. She denies chest pain, paroxysmal nocturnal dyspnea or orthopnea. There is no history of leg edema. The patient had an echocardiogram done last month that revealed severe LV systolic dysfunction with an ejection fraction of 25% to 30%. She had a V/Q scan on this admission that was negative for PE. After admission, her tropes are slightly elevated. The BNP is elevated. She is being treated with IV diuretics. I do not believe her predominant problem is congestive heart failure. Blood pressures are low, probably secondary to intravascular volume depletion. I am going to cut back on the diuretics and if the blood pressure is well, patient is able to ambulate we can discharge her home. Current medications include: 1. Omeprazole. 2. Lisinopril 2.5 daily. 3. Levothyroxine. 4. Lasix 20 b.i.d. 5. Plavix 75 mg daily. 6. Coreg 6.25 b.i.d. 7. Atorvastatin. 8. Aspirin. ALLERGIES: There are no known drug allergies. FAMILY HISTORY: Negative for premature coronary artery disease. SOCIAL HISTORY: Negative for current smoking, ETOH abuse, or drug abuse. REVIEW OF SYSTEMS: HEENT: Unremarkable. CARDIAC: As described above. RESPIRATORY: Negative. GI: Negative. GENITOURINARY: Negative. MUSCULOSKELETAL: Negative. ENDOCRINE: Negative. CONSTITUTIONAL: Negative. PHOTOENGRAVER APPRENTICE: Negative. The rest of the system review is not relevant. On exam, patient is comfortable at rest. Vital signs are stable, afebrile. Heart rate is 82, blood pressure 96/55, respiratory rate is 18. There is no jugular venous distention. Carotid upstroke is normal. There is no bruit. Chest exam reveals diminished air entry at the bases. Heart exam reveals first and second heart sounds. No gallop. ABDOMEN: Soft. Exam of the extremities did not reveal edema. Peripheral pulses are felt. Labs show a hemoglobin of 10. Potassium is low at 3.2. Troponins are in the velazco zone at 0.03, 0.03, 0.02. BNP is elevated at 9640. ASSESSMENT: 1. Hypertension probably secondary to the medications she is on. 2. Coronary artery disease status post coronary artery bypass graft. 3. Ischemic cardiomyopathy. PLAN: I am going to change the Lasix to p.o. She was on 20 b.i.d. We can go to 40 b.i.d., decrease the Coreg dose to 3.125 b.i.d. Continue the aspirin, Lipitor and low dose Prinivil, we can ambulate her and if she is feeling well hopefully home later today.
--- NOTE | 2016-11-14 13:34 | P.CNPUL ---
History of Present Illness Consult date: 11/14/16 Requesting physician: Brooks Farias Reason for consult: dyspnea Chief complaint: Shortness of breath History of present illness: This is a 66-year-old female with history of cardiomyopathy, LV dysfunction, history of CABG over a month ago, her postoperative course was relatively uneventful. Patient was discharged home, and over the last 5 days, she has been noticing increased shortness of breath with any exertion. Patient doubled on her Lasix, but continued to have symptoms of shortness of breath with activity. Patient also describes cough which is productive with whitish phlegm , but no fever no chills no hemoptysis and no chest pain. Her symptoms of shortness of breath seems to be worse when she lays flat in bed. Considering her symptoms, patient presented to the ER, and her chest x-ray showed cardiomegaly with some prominence of the pulmonary vasculature, and chronic right hilar prominence related to previous radiation therapy she also had a small pleural effusion. Her pro BNP level was elevated. Patient was given diuretics, and she improved quite well. Overnight I recommended a VQ scan which came back low probability to intermediate considering the patient had multiple matching defects. Her d-dimer was a bit elevated. At any rate patient is feeling better today, breathing easier, and I felt there is no need to pursue the issue of thromboembolic disease any further at this point. Patient was seen by cardiology, and her cardiac meds where readjusted. Patient remains on Lasix for CHF. Review of Systems 14 point review of systems were obtained, please refer to pertinent positives and negatives in HPI Past Medical History Past Medical History: Asthma, Coronary Artery Disease (CAD), Cancer, GERD/Reflux , Hypertension, Thyroid Disorder Additional Past Medical History / Comment(s): 2 CHF. Right Breast cancer stage 4(1993) had mastectomy and radiation/chemo,had genetic testing done ,was poisitve for BRCA GENE so had elective lt masectomy done.rt lung nodule( cancerous/was removed and had 4 chemo tx), 10/05/17 nstemi. Her left pulmonary nodule turned out to be lymphoma, this was removed at [facility], and postoperatively the patient received chemotherapy. History of Any Multi-Drug Resistant Organisms: None Reported Past Surgical History: Appendectomy, Cholecystectomy, Coronary Bypass/CABG, Heart Catheterization, Hysterectomy Additional Past Surgical History / Comment(s): Bone marrow transplant 1994, lanie mastectomy/radiation. 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 Smoking Status: Never smoker Past Alcohol Use History: None Reported Past Drug Use History: None Reported - Past Family History Mother Family Medical History: Diabetes Mellitus Additional Family Medical History / Comment(s): heart valve replacment Father Family Medical History: Cancer Additional Family Medical History / Comment(s): lung cancer Sister(s) Family Medical History: Cancer Additional Family Medical History / Comment(s): breast cancer Medications and Allergies Home Medications Medication Instructions Recorded Confirmed Type Levothyroxine Sodium [Synthroid] 50 mcg PO HS 02/14/16 11/13/16 History Omeprazole 20 mg PO HS 02/14/16 11/13/16 History Atorvastatin [Lipitor] 40 mg PO DAILY 11/13/16 11/13/16 History Carvedilol [Coreg] 6.25 mg PO BID 11/13/16 11/13/16 History Furosemide [Lasix] 20 mg PO BID 11/13/16 11/13/16 History Lisinopril [Prinivil] 2.5 mg PO HS 11/13/16 11/13/16 History Allergies Allergy/AdvReac Type Severity Reaction Status Date / Time No Known Allergies Allergy Verified 11/13/16 15:33 Physical Exam Vitals: Vital Signs Temp Pulse Pulse Pulse Resp BP BP 11/14/16 11:54 88 11/14/16 11:35 90 11/14/16 11:00 97.5 F L 89 16 96/59 11/14/16 08:10 91 11/14/16 07:45 99.1 F 91 16 106/62 11/14/16 04:00 92 16 105/68 11/13/16 23:43 94 14 11/13/16 23:38 94 14 102/59 11/13/16 20:07 14 11/13/16 20:00 97.1 F L 86 14 95/59 11/13/16 17:17 97.2 F L 87 18 104/56 Pulse Ox 11/14/16 11:54 11/14/16 11:35 11/14/16 11:00 100 11/14/16 08:10 11/14/16 07:45 98 11/14/16 04:00 97 11/13/16 23:43 11/13/16 23:38 98 11/13/16 20:07 11/13/16 20:00 100 11/13/16 17:17 99 Intake and Output 11/13/16 11/14/16 11/14/16 22:59 06:59 14:59 Intake Total 75 1500 Output Total 700 Balance 75 -700 1500 Intake: Intake, IV Titration 75 1200 Amount Sodium Chloride 0.9% 1, 75 1200 000 ml @ 75 mls/hr IV . [id number] STA Rx#:[id number] Oral 300 Output: Urine 700 Other: Voiding Method Toilet # Voids 1 Weight 78.4 kg Patient Weight 11/15/16 06:59 Weight 78.4 kg Physical Exam: Revealed a 66-year-old female in no distress HEENT:[Neck is supple.] [No neck masses.] [No thyromegaly.] [No JVD.] Chest: [Clear throughout, no crackles, no rhonchi, no wheezes.] Cardiac Exam: [Normal S1 and S2, no S3 gallop, no murmur.] Abdomen: [Soft, nontender, no megaly, no rebound, no guarding, normal bowel sounds.] Extremities: [No clubbing, 2+ bipedal edema, no cyanosis.] Neurological Exam: [No focal neurologic deficit.] Results - Laboratory Findings CBC and BMP: 11/13/16 14:52 11/13/16 14:52 PT/INR, D-dimer PT 13.2 sec (9.0-12.0) H 11/13/16 14:52 INR 1.3 (<1.1) 11/13/16 14:52 D-Dimer 1.42 mg/L FEU (<0.60) H 11/13/16 14:52 Abnormal lab findings: Abnormal Labs 11/13/16 20:27 Troponin I 0.037 H* - Diagnostic Findings Chest x-ray: image reviewed (Chest x-ray showed cardiomegaly and chronic changes and stable hilar prominence, suspect some component of pulmonary arterial hypertension and mild prominence of the vasculature, small pleural effusion noted.) Assessment and Plan Plan: Impression: 1 shortness of breath secondary to mild congestive heart failure secondary to systolic dysfunction, ejection fraction is less than 35% on recent echocardiogram. 2 multiple comorbidities including history of coronary artery disease and recent CABG, history of stage IV breast cancer and stem cell transplant, in 1993. History of bilateral mastectomy history of lung nodule/lymphoma, status post resection followed by chemotherapy. History of ischemic cardiomyopathy history of hypothyroidism, GERD, and previous history of radiation pneumonitis. Recommendation: Agree with the present treatment plan, patient is yet to be seen unofficially by cardiology, in the meantime the patient seems to be responding quite well to treatment, and feeling much better earlier today with diuresis. We'll continue to follow and monitor electrolytes and monitor renal profile. Time with Patient: Greater than 30
[2016-11-14 13:47] VITALS: BMI 29.6
[2016-11-14] MEDS ORDERED: Potassium Replacement Protocol 1 EACH MISC MISCELLANE PRN (15:06)
--- NOTE | 2016-11-14 15:30 | HP ---
DATE OF ADMISSION: 11/13/2016 H&P AND DISCHARGE SUMMARY 66-year-old with cardiomyopathy and LV dysfunction with the patient had a CABG about a month ago, came in with complaints of shortness of breath. Denied any clear-cut orthopnea, PND. Patient has been complaining of generalized fatigue, lightheadedness. Patient was found to have a low blood pressures that appears to be main issue. Patient was complaining of whitish sputum production. The patient's chest x-ray did show minimal congestive heart failure. Patient responded well to diuretic therapy. Patient is clinically doing well and patient will be discharged today with following changes because of her hypotension. Patient's Lasix will be switched from 20 to 40 b.i.d., 40 oral b.i.d. as recommended by cardiology and patient Coreg will be switched to metoprolol because of hypotension issues. The patient will be discharged on same dose of Lisinopril and patient's potassium was low, which will be corrected and patient will be discharged on 20 b.i.d. of potassium along with a repeat electrolytes as an outpatient. Patient had a V/Q scan because of elevated d-dimer which showed low probability of pulmonary embolism. Will not need any anticoagulation for that. Patient also has mild acute renal failure secondary to prerenal azotemia from CHF, which is expected to have improved by now. We will repeat electrolytes before her discharge. The patient's baseline creatinine is around 0.8, now 1.33. REVIEW OF SYSTEMS: CONSTITUTIONAL: No fever, no malaise, no fatigue. HEENT: No recent visual problems or hearing problems. Denied any sore throat. CARDIOVASCULAR: As described in HPI. PULMONARY: No shortness of breath, no cough, no hemoptysis. GASTROINTESTINAL: No diarrhea, no nausea, no vomiting, no abdominal pain. Normoactive bowel sounds. NEUROLOGICAL: No headaches, no weakness, no numbness. HEMATOLOGICAL: Denies any bleeding or petechiae. GENITOURINARY: Denies any burning micturition, frequency, or urgency. MUSCULOSKELETAL/RHEUMATOLOGICAL: Denies any joint pain, swelling, or any muscle pain. ENDOCRINE: Denies any polyuria or polydipsia. The rest of the 14 point review of systems is negative. Past medical history significant for asthma, coronary artery disease, congestive heart failure, chronic systolic dysfunction; ejection fraction of around 30%, gastroesophageal reflux disease, hypertension, hypothyroidism. CABG in the past, appendectomy, cholecystectomy, cardiac catheterization, hysterectomy, bilateral mastectomy. SOCIAL HISTORY: Denied any smoking, alcohol abuse or any drug abuse. FAMILY HISTORY: Significant for diabetes mellitus in mother, father had lung cancer. Sister had breast cancer. Home medications: 1. Levothyroxine. 2. Omeprazole. 3. Atorvastatin. 4. Coreg. 5. Lisinopril. 6. Lasix 20 mg p.o. b.i.d. ALLERGIES: No known drug allergies. PHYSICAL EXAMINATION: VITAL SIGNS: Temperature 97.5, pulse of 88, respiratory rate of 16, blood pressure is 96/59. Saturating at 100% on room air. GENERAL: The patient is alert and oriented x3, not in any acute distress. Well developed, well nourished. HEENT: Pupils are round and equally reacting to light. EOMI. No scleral icterus. No conjunctival pallor. Normocephalic, atraumatic. No pharyngeal erythema. No thyromegaly. CARDIOVASCULAR: S1 and S2 present. No murmurs, rubs, or gallops. PULMONARY: Chest is clear to auscultation, no wheezing or crackles. ABDOMEN: Soft, nontender, nondistended, normoactive bowel sounds. No palpable organomegaly. MUSCULOSKELETAL: No joint swelling or deformity. EXTREMITIES: No cyanosis, clubbing, or pedal edema. NEUROLOGICAL: Gross neurological examination did not reveal any focal deficits. SKIN: No rashes. LABORATORY DATA: CBC and BMP from yesterday is as mentioned above. I do not have any repeat labs from today, which I am awaiting. ASSESSMENT AND PLAN: 1. Shortness of breath secondary to congestive heart failure, minimal exacerbation. The patient has chronic systolic dysfunction with acute exacerbation. 2. Hypertension, because of above-mentioned reasons. 3. Coronary artery disease. 4. Asthma without any acute exacerbation. 5. Hypertension. 6. Hypothyroidism. PLAN: As mentioned in the history itself, patient will be discharged today. Patient will follow with Dr. Arechiga in about 3 to 7 days. Activity as tolerated. Follow with cardiology as scheduled. Will set up home care for the patient. We will use [facility] and repeat electrolytes as mentioned above. Congestive heart failure discharge instructions will be provided. Cardiac diet. This dictation is both H&P and discharge summary.
[2016-11-14] MEDS ORDERED: POTASSIUM CHLORIDE ER 20 MEQ TAB.ER PO SCH (16:00)
[2016-11-14] MEDS ORDERED: FUROSEMIDE 20 MG TAB PO SCH (16:00)
[2016-11-14] MEDS ORDERED: CARVEDILOL 3.125 MG TAB PO SCH (17:30)
== END 2016-11-14 16:12 | disposition home or self-care (01) | DRG 292 ==
LOC: EC 14:50 → 6SEL 16:38
PROVIDERS: ADMIT Internal Medicine; ATTEND Internal Medicine
DX: I11.0 Hypertensive heart disease with heart failure (principal); N17.9 Acute kidney failure, unspecified; Z94.81 Bone marrow transplant status; J45.901 Unspecified asthma with (acute) exacerbation; Z95.1 Presence of aortocoronary bypass graft; I95.9 Hypotension, unspecified; E86.9 Volume depletion, unspecified; K21.9 Gastro-esophageal reflux disease without esophagitis; I25.2 Old myocardial infarction; E03.9 Hypothyroidism, unspecified; I50.23 Acute on chronic systolic (congestive) heart failure; I25.10 Atherosclerotic heart disease of native coronary artery without angina pectoris; I25.5 Ischemic cardiomyopathy; Z79.82 Long term (current) use of aspirin; Z79.899 Other long term (current) drug therapy; Z85.3 Personal history of malignant neoplasm of breast; Z85.72 Personal history of non-Hodgkin lymphomas
CPT/HCPCS: 36415; 71020; 78582; 80053; 81003; 82550; 82553; 83880; 84132; 84484; 85025; 85379; 85610; 85730; 93005; 94640; 96365; 96366; 99285

== ENCOUNTER 2016-11-24 18:07 | Emergency (ER) | payer MEDICARE, BC ==
[2016-11-24 18:13] VITALS: TEMP 97.1
--- NOTE | 2016-11-24 18:43 | ED ---
General Adult HPI - General Source: patient, family, RN notes reviewed Mode of arrival: ambulatory <Ailyn Aleman - Last Filed: 11/24/16 19:01> <Joe Rendon - Last Filed: 11/24/16 20:28> - General Chief complaint: Recheck/Abnormal Lab/Rx Stated complaint: BLOOD PRESSURE PROBLEMS, HIGH/LOW Time Seen by Provider: 11/24/16 18:14 - History of Present Illness Initial comments: This is a 66-year-old female presents with fevers for low blood pressure. Patient states she just started Aldactone yesterday and has a history of heart surgery on October 07. She states she checked her blood pressure this morning and it was 56/70 with a pulse of 124. Patient states she rechecked it several times throughout the day and Proventil but patient did not record these values. Patient denies any dizziness patient does report feeling "drained" and she has a mild headache. Patient denies any chest pain or shortness of breath. Patient admits to having a mild cough this is chronic for her. Patient denies any recent fever, chills, abdominal pain, nausea/vomiting/diarrhea, back pain, numbness, tingling, hematuria, or visual changes, or any other complaints. (Ailyn Aleman) - Related Data Home Medications Medication Instructions Recorded Confirmed Levothyroxine Sodium [Synthroid] 50 mcg PO HS 02/14/16 11/24/16 Omeprazole 20 mg PO DAILY 02/14/16 11/24/16 Atorvastatin [Lipitor] 40 mg PO HS 11/13/16 11/24/16 Lisinopril [Prinivil] 2.5 mg PO HS 11/13/16 11/24/16 Metoprolol Succinate [Toprol XL] 25 mg PO BID 11/24/16 11/24/16 Potassium Chloride ER [K-Dur 10] 10 meq PO BID 11/24/16 11/24/16 Spironolactone [Aldactone] 25 mg PO DAILY 11/24/16 11/24/16 Previous Rx's Medication Instructions Recorded Aspirin 325 mg PO DAILY #30 tab 10/12/16 Clopidogrel [Plavix] 75 mg PO DAILY #30 tab 10/12/16 Allergies Allergy/AdvReac Type Severity Reaction Status Date / Time No Known Allergies Allergy Verified 11/24/16 20:16 Review of Systems ROS Other: All systems not noted in ROS Statement are negative. <Ailyn Aleman - Last Filed: 11/24/16 19:01> ROS Other: All systems not noted in ROS Statement are negative. <Joe Rendon - Last Filed: 11/24/16 20:28> ROS Statement: Those systems with pertinent positive or pertinent negative responses have been documented in the HPI. Past Medical History Past Medical History: Asthma, Coronary Artery Disease (CAD), Cancer, GERD/Reflux , Hypertension, Thyroid Disorder Additional Past Medical History / Comment(s): 11-13-16 CHF. Right Breast cancer stage 4(1993) had mastectomy and radiation/chemo,had genetic testing done ,was poisitve for BRCA GENE so had elective lt masectomy done.rt lung nodule( cancerous/was removed and had 4 chemo tx), 10/05/17 nstemi. Her left pulmonary nodule turned out to be lymphoma, this was removed at [facility], and postoperatively the patient received chemotherapy. History of Any Multi-Drug Resistant Organisms: None Reported Past Surgical History: Appendectomy, Cholecystectomy, Coronary Bypass/CABG, Heart Catheterization, Hysterectomy Additional Past Surgical History / Comment(s): Bone marrow transplant 1994, lanie mastectomy/radiation. 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 is independant. Smoking Status: Never smoker Past Alcohol Use History: None Reported Past Drug Use History: None Reported - Past Family History Mother Family Medical History: Diabetes Mellitus Additional Family Medical History / Comment(s): heart valve replacment Father Family Medical History: Cancer Additional Family Medical History / Comment(s): lung cancer Sister(s) Family Medical History: Cancer Additional Family Medical History / Comment(s): breast cancer <Ailyn Aleman - Last Filed: 11/24/16 19:01> General Exam <Ailyn Aleman - Last Filed: 11/24/16 19:01> <Joe Rendon - Last Filed: 11/24/16 20:28> - General Exam Comments Initial Comments: General: The patient is awake and alert, in no distress, and does not appear acutely ill. Eye: Pupils are equal, round and reactive to light, extra-ocular movements are intact. No nystagmus. There is normal conjunctiva bilaterally. No signs of icterus. Ears: TMs pink and pearly with intact cone of light bilaterally. Normal external ear canals Nose: Nasal turbinates pink and moist Mouth and throat: There are moist mucous membranes and no oral lesions. Neck: The neck is supple, there is no tenderness or JVD. Cardiovascular: There is a regular rate and rhythm. No murmur, rub or gallop is appreciated. Respiratory: Lungs are clear to auscultation, respirations are non-labored, breath sounds are equal. No wheezes, stridor, rales, or rhonchi. Gastrointestinal: Soft, non-distended, non-tender abdomen without masses or organomegaly noted. There is no rebound or guarding present. No CVA tenderness. Bowel sounds are unremarkable. Musculoskeletal: Normal ROM, no tenderness. Strength 5/5. Sensation intact. Radial pulses equal bilaterally 2+. Neurological: A&O x 3. CN II-XII intact, There are no obvious motor or sensory deficits. Coordination appears grossly intact. Speech is normal. Skin: Skin is warm and dry and no rashes or lesions are noted. Psychiatric: Cooperative, appropriate mood & affect, normal judgment. (Ailyn Aleman) EKG Findings - EKG Comments: EKG Findings:: EKG was done at 1831 showing sinus tachycardia, ventricular rate of 109, [place] interval 150, QRS duration 136, QTC of 511. No acute ST changes. EKG today was compared to an EKG on 11/14/16 with similar findings. <Ailyn Aleman - Last Filed: 11/24/16 19:01> Medical Decision Making <Ailyn Aleman - Last Filed: 11/24/16 19:01> - Lab Data Result diagrams: 11/24/16 18:56 11/24/16 18:56 <Joe Rendon - Last Filed: 11/24/16 20:28> - Medical Decision Making This is a 66-year-old female presents with concerns for low blood pressure. On physical exam lungs are clear to auscultation bilaterally. His blood pressure is stable in the EC today. Pulses slightly elevated. Recently started a new medication yesterday, Aldactone. EKG: EKG was done at 1831 showing sinus tachycardia, ventricular rate of 109, [place] interval 150, QRS duration 136, QTC of 511. No acute ST changes. EKG done today was compared to an EKG from 2016 with similar findings. Patient had a chest x-ray done yesterday showing no acute intrathoracic abnormality. Reported by Dr. Davis. Basic labs were drawn and reviewed. (Ailyn Aleman) Medical decision-making. The patient is here because she repeated her blood pressure home several times and was low when she came her blood pressure was approximately 100/60. While here the patient had a workup which included lab work that did show a BNP of 4100. Patient does have a history of CHF in the past. Patient does not have any shortness of breath the lungs are clear there is no peripheral edema. Patient had chest x-ray done yesterday it too was normal. No evidence of CHF. The patient's orthostatics performed here showed 1 laying 108/60 pulse 100 sitting 109/58 pulse 107 and then standing blood pressure 106/58 pulse rate 109. Patient did not complain of any discomfort in the complaining of any dizziness. And the plant this time for the patient be discharged home with her to follow-up. With her family doctor and [employer]. Advised to stay properly hydrated change positions slowly especially after going to the bathroom or getting up early in the morning leaving a sitting position. Advised return emergency room if she has any questions or problems. Dr. Rendon (Joe Rendon) - Lab Data Lab Results 11/24/16 11/24/16 11/24/16 Range/Units 18:56 18:56 18:56 WBC 9.1 (3.8-10.6) k/uL RBC 4.14 (3.80-5.40) m/uL Hgb 11.7 (11.4-16.0) gm/dL Hct 36.9 (34.0-46.0) % MCV 89.2 (80.0-100.0) fL MCH 28.2 (25.0-35.0) pg MCHC 31.7 (31.0-37.0) g/dL RDW 16.3 H (11.5-15.5) % Plt Count 337 (150-450) k/uL Neutrophils % 61 % Lymphocytes % 23 % Monocytes % 9 % Eosinophils % 4 % Basophils % 1 % Neutrophils # 5.5 (1.3-7.7) k/uL Lymphocytes # 2.1 (1.0-4.8) k/uL Monocytes # 0.8 (0-1.0) k/uL Eosinophils # 0.3 (0-0.7) k/uL Basophils # 0.1 (0-0.2) k/uL Hypochromasia Slight Poikilocytosis Slight Anisocytosis Slight PT (9.0-12.0) sec INR (<1.1) APTT (22.0-30.0) sec Sodium 142 (137-145) mmol/L Potassium 4.6 (3.5-5.1) mmol/L Chloride 98 (98-107) mmol/L Carbon Dioxide 29 (22-30) mmol/L Anion Gap 15 mmol/L BUN 16 (7-17) mg/dL Creatinine 0.87 (0.52-1.04) mg/dL Est GFR (MDRD) Af Amer >60 (>60 ml/min/1.73 sqM) Est GFR (MDRD) Non-Af >60 (>60 ml/min/1.73 sqM) Glucose 123 H (74-99) mg/dL Calcium 8.4 (8.4-10.2) mg/dL Magnesium 1.1 L (1.6-2.3) mg/dL Total Bilirubin 1.1 (0.2-1.3) mg/dL AST 34 (14-36) U/L ALT 45 (9-52) U/L Alkaline Phosphatase 84 (38-126) U/L Total Creatine Kinase 35 (30-135) U/L CK-MB (CK-2) 1.1 (0.0-2.4) ng/mL CK-MB (CK-2) Rel Index 3.1 Troponin I 0.013 (0.000-0.034) ng/mL NT-Pro-B Natriuret Pep pg/mL Total Protein 6.8 (6.3-8.2) g/dL Albumin 3.7 (3.5-5.0) g/dL 11/24/16 11/24/16 Range/Units 18:56 18:56 WBC (3.8-10.6) k/uL RBC (3.80-5.40) m/uL Hgb (11.4-16.0) gm/dL Hct (34.0-46.0) % MCV (80.0-100.0) fL MCH (25.0-35.0) pg MCHC (31.0-37.0) g/dL RDW (11.5-15.5) % Plt Count (150-450) k/uL Neutrophils % % Lymphocytes % % Monocytes % % Eosinophils % % Basophils % % Neutrophils # (1.3-7.7) k/uL Lymphocytes # (1.0-4.8) k/uL Monocytes # (0-1.0) k/uL Eosinophils # (0-0.7) k/uL Basophils # (0-0.2) k/uL Hypochromasia Poikilocytosis Anisocytosis PT 13.1 H (9.0-12.0) sec INR 1.3 (<1.1) APTT 23.4 (22.0-30.0) sec Sodium (137-145) mmol/L Potassium (3.5-5.1) mmol/L Chloride (98-107) mmol/L Carbon Dioxide (22-30) mmol/L Anion Gap mmol/L BUN (7-17) mg/dL Creatinine (0.52-1.04) mg/dL Est GFR (MDRD) Af Amer (>60 ml/min/1.73 sqM) Est GFR (MDRD) Non-Af (>60 ml/min/1.73 sqM) Glucose (74-99) mg/dL Calcium (8.4-10.2) mg/dL Magnesium (1.6-2.3) mg/dL Total Bilirubin (0.2-1.3) mg/dL AST (14-36) U/L ALT (9-52) U/L Alkaline Phosphatase (38-126) U/L Total Creatine Kinase (30-135) U/L CK-MB (CK-2) (0.0-2.4) ng/mL CK-MB (CK-2) Rel Index Troponin I (0.000-0.034) ng/mL NT-Pro-B Natriuret Pep 4100 pg/mL Total Protein (6.3-8.2) g/dL Albumin (3.5-5.0) g/dL Disposition <Ailyn Aleman - Last Filed: 11/24/16 19:01> Time of Disposition: 20:28 <Joe Rendon - Last Filed: 11/24/16 20:28> Clinical Impression: Low blood pressure reading Disposition: HOME SELF-CARE Condition: Good Instructions: Hypotension (ED) Additional Instructions: Follow-up with his family doctor in [place] [employer]. Return emergency room if any difficulties. Change positions slowly especially after going to the bathroom. Take medications as directed.
[2016-11-24 19:16] LABS: Anisocytosis Slight; Basophils # (A) 0.1 k/uL (0-0.2); Basophils % (A) 1 %; CH 28.9; CHCM 32.4; Eosinophils # (A) 0.3 k/uL (0-0.7); Eosinophils % (A) 4 %; HCT 36.9 % (34.0-46.0); HDW 3.57; HGB 11.7 gm/dL (11.4-16.0); Hypochromasia Slight; Luc # (Auto) 0.19; Luc % (Auto) 2; Lymphocytes # (A) 2.1 k/uL (1.0-4.8); Lymphocytes % (A) 23 %; MCH 28.2 pg (25.0-35.0); MCHC 31.7 g/dL (31.0-37.0); MCV 89.2 fL (80.0-100.0); Mean Platelet Volume 7.6; Monocytes # (A) 0.8 k/uL (0-1.0); Monocytes % (A) 9 %; Neutrophils # (A) 5.5 k/uL (1.3-7.7); Neutrophils % (A) 61 %; Poikilocytosis Slight; RBC 4.14 m/uL (3.80-5.40); RDW 16.3 % (11.5-15.5); WBC 9.1 k/uL (3.8-10.6); WBC (Perox) 8.82
[2016-11-24 19:26] LABS: ALT 45 U/L (9-52); AST 34 U/L (14-36); Alkaline Phosphatase 84 U/L (38-126); Anion Gap 15 mmol/L; Blood Urea Nitrogen 16 mg/dL (7-17); Calcium 8.4 mg/dL (8.4-10.2); Carbon Dioxide 29 mmol/L (22-30); Chloride 98 mmol/L (98-107); Glucose 123 mg/dL (74-99); Magnesium 1.1 mg/dL (1.6-2.3); Non-African American GFR(MDRD) >60 (>60 ml/min/1.73 sqM); Potassium 4.6 mmol/L (3.5-5.1); Sodium 142 mmol/L (137-145); Total Bilirubin 1.1 mg/dL (0.2-1.3); Total Protein 6.8 g/dL (6.3-8.2)
[2016-11-24 19:28] LABS: INR 1.3 (<1.1); Partial Thromboplastin Time 23.4 sec (22.0-30.0); Prothrombin Time 13.1 sec (9.0-12.0)
[2016-11-24 19:48] LABS: Creatine Kinase MB 1.1 ng/mL (0.0-2.4); Troponin I 0.013 ng/mL (0.000-0.034)
[2016-11-24 20:11] VITALS: BP 110/65; PULSE 105; RESP 18
== END 2016-11-24 20:44 | disposition home or self-care (01) ==
LOC: EC 18:07
DX: I95.9 Hypotension, unspecified (principal); K21.9 Gastro-esophageal reflux disease without esophagitis; E07.9 Disorder of thyroid, unspecified; J45.909 Unspecified asthma, uncomplicated; I25.10 Atherosclerotic heart disease of native coronary artery without angina pectoris; I10 Essential (primary) hypertension; I25.2 Old myocardial infarction; I50.9 Heart failure, unspecified; Z85.3 Personal history of malignant neoplasm of breast; Z92.3 Personal history of irradiation; Z92.21 Personal history of antineoplastic chemotherapy; Z85.118 Personal history of other malignant neoplasm of bronchus and lung; Z95.1 Presence of aortocoronary bypass graft; Z79.899 Other long term (current) drug therapy; Z79.82 Long term (current) use of aspirin
CPT/HCPCS: 36415; 80053; 82550; 82553; 83735; 83880; 84484; 85025; 85610; 85730; 93005; 99283

== ENCOUNTER 2016-12-16 20:48 | Emergency (ER) | payer MEDICARE, BC ==
[2016-12-16 20:56] VITALS: BP 111/61; RESP 18; TEMP 97.8
[2016-12-16] MEDS ORDERED: IPRATROPIUM-ALBUTEROL 3 ML NEB INHALATION STA (21:22)
[2016-12-16] MEDS ORDERED: LORazepam 1 MG TAB PO STA (21:23)
--- NOTE | 2016-12-16 21:25 | ED ---
General Adult HPI - General Chief complaint: Shortness of Breath Stated complaint: SOB Time Seen by Provider: 12/16/16 21:08 Source: patient, family, RN notes reviewed Mode of arrival: ambulatory Limitations: no limitations - History of Present Illness Initial comments: Patient is a pleasant 66-year-old female presenting to the emergency Department with complaints of difficulty in breathing. Onset of symptoms was since her open heart surgery in the beginning of October. Patient states symptoms are somewhat worse today. Patient does have an occasional cough with occasional yellow sputum. Patient has mild rhinorrhea. No fevers. No chest pain. No leg pain or swelling. Patient states she does have problems with anxiety. Patient was taking Xanax for this however states she feels that is no longer working for her. Patient questions if there is something different she can try. - Related Data Home Medications Medication Instructions Recorded Confirmed Levothyroxine Sodium [Synthroid] 50 mcg PO HS 02/14/16 11/24/16 Omeprazole 20 mg PO DAILY 02/14/16 11/24/16 Atorvastatin [Lipitor] 40 mg PO HS 11/13/16 11/24/16 Lisinopril [Prinivil] 2.5 mg PO HS 11/13/16 11/24/16 Metoprolol Succinate [Toprol XL] 25 mg PO BID 11/24/16 11/24/16 Potassium Chloride ER [K-Dur 10] 10 meq PO BID 11/24/16 11/24/16 Spironolactone [Aldactone] 25 mg PO DAILY 11/24/16 11/24/16 Previous Rx's Medication Instructions Recorded Aspirin 325 mg PO DAILY #30 tab 10/12/16 Clopidogrel [Plavix] 75 mg PO DAILY #30 tab 10/12/16 Albuterol Inhaler [Ventolin Hfa 2 puff INHALATION Q4HR PRN #1 12/17/16 Inhaler] inhaler LORazepam [Ativan] 1 mg PO BID #8 tab 12/17/16 Allergies Allergy/AdvReac Type Severity Reaction Status Date / Time No Known Allergies Allergy Verified 12/16/16 20:56 Review of Systems ROS Statement: Those systems with pertinent positive or pertinent negative responses have been documented in the HPI. ROS Other: All systems not noted in ROS Statement are negative. Constitutional: Denies: fever Eyes: Denies: eye pain ENT: Denies: ear pain Respiratory: Reports: cough, dyspnea Cardiovascular: Denies: chest pain Endocrine: Denies: fatigue Gastrointestinal: Denies: abdominal pain Genitourinary: Denies: dysuria Musculoskeletal: Denies: back pain Skin: Denies: rash Neurological: Denies: headache Past Medical History Past Medical History: Asthma, Coronary Artery Disease (CAD), Cancer, GERD/Reflux , Hypertension, Thyroid Disorder Additional Past Medical History / Comment(s): 11-13-16 CHF. Right Breast cancer stage 4(1993) had mastectomy and radiation/chemo,had genetic testing done ,was poisitve for BRCA GENE so had elective lt masectomy done.rt lung nodule( cancerous/was removed and had 4 chemo tx), 10/05/17 nstemi. Her left pulmonary nodule turned out to be lymphoma, this was removed at [facility], and postoperatively the patient received chemotherapy. History of Any Multi-Drug Resistant Organisms: None Reported Past Surgical History: Appendectomy, Cholecystectomy, Coronary Bypass/CABG, Heart Catheterization, Hysterectomy Additional Past Surgical History / Comment(s): Bone marrow transplant 1994, lanie mastectomy/radiation. 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 Smoking Status: Never smoker Past Alcohol Use History: None Reported Past Drug Use History: None Reported - Past Family History Mother Family Medical History: Diabetes Mellitus Additional Family Medical History / Comment(s): heart valve replacment Father Family Medical History: Cancer Additional Family Medical History / Comment(s): lung cancer Sister(s) Family Medical History: Cancer Additional Family Medical History / Comment(s): breast cancer General Exam Limitations: no limitations General appearance: alert, in no apparent distress Head exam: Present: atraumatic, normocephalic Eye exam: Present: normal appearance, PERRL ENT exam: Present: normal oropharynx Neck exam: Present: normal inspection Respiratory exam: Present: wheezes (Minimal expiratory). Absent: respiratory distress Cardiovascular Exam: Present: regular rate, normal rhythm GI/Abdominal exam: Present: soft. Absent: tenderness Extremities exam: Present: normal inspection. Absent: pedal edema, calf tenderness Back exam: Present: normal inspection Neurological exam: Present: alert Psychiatric exam: Present: normal affect, normal mood Skin exam: Absent: rash Course Vital Signs 12/16/16 12/16/16 12/16/16 20:51 21:30 21:42 Temperature 97.8 F Pulse Rate 72 107 H 105 H Respiratory 18 Rate Blood Pressure 111/61 O2 Sat by Pulse 97 Oximetry EKG Findings - EKG Comments: EKG Findings:: Sinus tachycardia 107. AR 148. QRS 134. QT 390. QTc 520. Superior axis. Nonspecific intraventricular block. Septal Q waves. Inverted T -wave in V6. Medical Decision Making - Medical Decision Making Patient reevaluated and resting comfortably in bed. Patient states she is feeling normal. Patient states she received improvement from both nebulizer and Ativan. Patient refuses to allow attempt at larger IV for computed tomography scan. Patient is made aware that d-dimer is somewhat elevated and puts her at increased risk for pulmonary embolism. Patient is made aware this could be life-threatening. Patient also refuses central line. Patient also refuses VQ scan. Patient states she feels better and requests discharge. Patient does demonstrate medical decision making. is present. - Lab Data Result diagrams: 12/16/16 21:50 12/16/16 21:50 Lab Results 12/16/16 12/16/16 12/16/16 Range/Units 21:50 21:50 21:50 WBC 8.8 (3.8-10.6) k/uL RBC 4.15 (3.80-5.40) m/uL Hgb 11.5 (11.4-16.0) gm/dL Hct 36.7 (34.0-46.0) % MCV 88.5 (80.0-100.0) fL MCH 27.7 (25.0-35.0) pg MCHC 31.3 (31.0-37.0) g/dL RDW 16.5 H (11.5-15.5) % Plt Count 281 (150-450) k/uL Neutrophils % 51 % Lymphocytes % 36 % Monocytes % 7 % Eosinophils % 3 % Basophils % 1 % Neutrophils # 4.4 (1.3-7.7) k/uL Lymphocytes # 3.1 (1.0-4.8) k/uL Monocytes # 0.7 (0-1.0) k/uL Eosinophils # 0.2 (0-0.7) k/uL Basophils # 0.1 (0-0.2) k/uL Hypochromasia Moderate Anisocytosis Slight PT (9.0-12.0) sec INR (<1.1) APTT (22.0-30.0) sec D-Dimer (<0.60) mg/L FEU Sodium 141 (137-145) mmol/L Potassium 4.6 (3.5-5.1) mmol/L Chloride 103 (98-107) mmol/L Carbon Dioxide 27 (22-30) mmol/L Anion Gap 11 mmol/L BUN 21 H (7-17) mg/dL Creatinine 1.10 H (0.52-1.04) mg/dL Est GFR (MDRD) Af Amer >60 (>60 ml/min/1.73 sqM) Est GFR (MDRD) Non-Af 50 (>60 ml/min/1.73 sqM) Glucose 106 H (74-99) mg/dL Calcium 9.3 (8.4-10.2) mg/dL Total Bilirubin 0.6 (0.2-1.3) mg/dL AST 46 H (14-36) U/L ALT 48 (9-52) U/L Alkaline Phosphatase 93 (38-126) U/L Total Creatine Kinase 33 (30-135) U/L CK-MB (CK-2) 0.8 (0.0-2.4) ng/mL CK-MB (CK-2) Rel Index 2.4 Troponin I <0.012 (0.000-0.034) ng/mL NT-Pro-B Natriuret Pep pg/mL Total Protein 7.2 (6.3-8.2) g/dL Albumin 3.8 (3.5-5.0) g/dL Influenza Type A RNA (Not Detectd) Influenza Type B (PCR) (Not Detectd) 12/16/16 12/16/16 12/16/16 Range/Units 21:50 21:50 22:00 WBC (3.8-10.6) k/uL RBC (3.80-5.40) m/uL Hgb (11.4-16.0) gm/dL Hct (34.0-46.0) % MCV (80.0-100.0) fL MCH (25.0-35.0) pg MCHC (31.0-37.0) g/dL RDW (11.5-15.5) % Plt Count (150-450) k/uL Neutrophils % % Lymphocytes % % Monocytes % % Eosinophils % % Basophils % % Neutrophils # (1.3-7.7) k/uL Lymphocytes # (1.0-4.8) k/uL Monocytes # (0-1.0) k/uL Eosinophils # (0-0.7) k/uL Basophils # (0-0.2) k/uL Hypochromasia Anisocytosis PT 11.6 (9.0-12.0) sec INR 1.2 (<1.1) APTT 22.7 (22.0-30.0) sec D-Dimer 1.20 H (<0.60) mg/L FEU Sodium (137-145) mmol/L Potassium (3.5-5.1) mmol/L Chloride (98-107) mmol/L Carbon Dioxide (22-30) mmol/L Anion Gap mmol/L BUN (7-17) mg/dL Creatinine (0.52-1.04) mg/dL Est GFR (MDRD) Af Amer (>60 ml/min/1.73 sqM) Est GFR (MDRD) Non-Af (>60 ml/min/1.73 sqM) Glucose (74-99) mg/dL Calcium (8.4-10.2) mg/dL Total Bilirubin (0.2-1.3) mg/dL AST (14-36) U/L ALT (9-52) U/L Alkaline Phosphatase (38-126) U/L Total Creatine Kinase (30-135) U/L CK-MB (CK-2) (0.0-2.4) ng/mL CK-MB (CK-2) Rel Index Troponin I (0.000-0.034) ng/mL NT-Pro-B Natriuret Pep 6290 pg/mL Total Protein (6.3-8.2) g/dL Albumin (3.5-5.0) g/dL Influenza Type A RNA Not Detected (Not Detectd) Influenza Type B (PCR) Not Detected (Not Detectd) - Radiology Data Radiology results: image reviewed (Chest x-ray shows no acute process) Disposition Clinical Impression: Dyspnea Disposition: HOME SELF-CARE Condition: Stable Instructions: Bronchospasm (ED) Additional Instructions: Please follow-up tomorrow with Dr. Arechiga as planned. Please have Dr. Arechiga review the chart from today. Return for difficulty in breathing, pain, worsening symptoms or other concerns. You have refused computed tomography scan and further evaluation for possible pulmonary embolism. Prescriptions: Albuterol Inhaler [Ventolin Hfa Inhaler] 2 puff INHALATION Q4HR PRN #1 inhaler PRN Reason: Dyspnea LORazepam [Ativan] 1 mg PO BID #8 tab Referrals: Tamika Arechiga MD [Primary Care Provider] - 1-2 days
[2016-12-16 21:46] VITALS: PULSE 105
--- NOTE | 2016-12-16 22:14 | XR ---
EXAM: XR Chest, 2 Views. CLINICAL HISTORY: Reason: difficulty breathing TECHNIQUE: Frontal and lateral views of the chest. COMPARISON: 11/23/16 radiograph. FINDINGS: Lungs: The lungs are stable including minimal reticular opacity, and scarring in the left midlung field. No superimposed infiltrate. Pleural spaces: Unremarkable. No pneumothorax. Heart: Cardiomediastinal silhouette is stable allowing for mild leftward rotation, including cardiomegaly. Mediastinum: See above. Bones: Prior median sternotomy. Bones stable including degenerative changes. No acute fracture. Upper abdomen: Right upper quadrant clips consistent with cholecystectomy again present. Mild elevation of the right diaphragm is unchanged. IMPRESSION: No significant change; no new acute intrathoracic abnormality is seen.
[2016-12-16 22:25] LABS: Anisocytosis Slight; Basophils # (A) 0.1 k/uL (0-0.2); Basophils % (A) 1 %; CH 27.6; CHCM 31.1; Eosinophils # (A) 0.2 k/uL (0-0.7); Eosinophils % (A) 3 %; HCT 36.7 % (34.0-46.0); HDW 3.39; HGB 11.5 gm/dL (11.4-16.0); Hypochromasia Moderate; Luc # (Auto) 0.31; Luc % (Auto) 4; Lymphocytes # (A) 3.1 k/uL (1.0-4.8); Lymphocytes % (A) 36 %; MCH 27.7 pg (25.0-35.0); MCHC 31.3 g/dL (31.0-37.0); MCV 88.5 fL (80.0-100.0); Mean Platelet Volume 7.3; Monocytes # (A) 0.7 k/uL (0-1.0); Monocytes % (A) 7 %; Neutrophils # (A) 4.4 k/uL (1.3-7.7); Neutrophils % (A) 51 %; RBC 4.15 m/uL (3.80-5.40); RDW 16.5 % (11.5-15.5); WBC 8.8 k/uL (3.8-10.6); WBC (Perox) 9.35
[2016-12-16 22:38] LABS: INR 1.2 (<1.1); Partial Thromboplastin Time 22.7 sec (22.0-30.0); Prothrombin Time 11.6 sec (9.0-12.0)
[2016-12-16 22:56] LABS: Creatine Kinase 33 U/L (30-135)
[2016-12-16 23:09] LABS: Creatine Kinase MB 0.8 ng/mL (0.0-2.4); Troponin I <0.012 ng/mL (0.000-0.034)
[2016-12-16 23:34] LABS: ALT 48 U/L (9-52); AST 46 U/L (14-36); Alkaline Phosphatase 93 U/L (38-126); Anion Gap 11 mmol/L; Blood Urea Nitrogen 21 mg/dL (7-17); Calcium 9.3 mg/dL (8.4-10.2); Carbon Dioxide 27 mmol/L (22-30); Chloride 103 mmol/L (98-107); Glucose 106 mg/dL (74-99); Non-African American GFR(MDRD) 50 (>60 ml/min/1.73 sqM); Sodium 141 mmol/L (137-145); Total Bilirubin 0.6 mg/dL (0.2-1.3); Total Protein 7.2 g/dL (6.3-8.2)
[2016-12-16 23:38] LABS: Potassium 4.6 mmol/L (3.5-5.1)
[2016-12-16] MEDS ORDERED: RX INFO: IV CONTRAST WAS GIVEN 1 EACH MISC MISCELLANE PRN (23:52)
== END 2016-12-17 00:38 | disposition home or self-care (01) ==
LOC: EC 20:48
DX: R06.00 Dyspnea, unspecified (principal); F41.9 Anxiety disorder, unspecified; Z79.899 Other long term (current) drug therapy; E07.9 Disorder of thyroid, unspecified; K21.9 Gastro-esophageal reflux disease without esophagitis; I10 Essential (primary) hypertension; Z79.82 Long term (current) use of aspirin; Z79.02 Long term (current) use of antithrombotics/antiplatelets; I25.10 Atherosclerotic heart disease of native coronary artery without angina pectoris; I25.2 Old myocardial infarction; Z95.1 Presence of aortocoronary bypass graft; I50.9 Heart failure, unspecified; Z94.81 Bone marrow transplant status
CPT/HCPCS: 36415; 71020; 80053; 82550; 82553; 83880; 84484; 85025; 85379; 85610; 85730; 87502; 93005; 94640; 99285

== ENCOUNTER 2016-12-17 14:35 | Inpatient (IN) | payer MEDICARE, BC ==
--- NOTE | 2016-12-17 15:23 | ED ---
General Adult HPI - General Chief complaint: Shortness of Breath Stated complaint: Sent by [facility] Time Seen by Provider: 12/17/16 15:21 Source: patient, RN notes reviewed, old records reviewed Mode of arrival: ambulatory Limitations: no limitations - History of Present Illness Initial comments: This is a 66-year-old female ER for evaluation of heart failure shortness of breath and exertional dyspnea. Patient having elevated heart rates and near syncopal events. Patient has history of cardiac disease with CABG in heart failure. Patient states symptoms are progressively worsening, para 2 levels further decreasing and she significantly short of breath. Patient denies cough or congestion no fevers - Related Data Home Medications Medication Instructions Recorded Confirmed Levothyroxine Sodium [Synthroid] 50 mcg PO HS 02/14/16 12/17/16 Atorvastatin [Lipitor] 40 mg PO HS 11/13/16 12/17/16 Lisinopril [Prinivil] 2.5 mg PO HS 11/13/16 12/17/16 Metoprolol Succinate [Toprol XL] 25 mg PO BID 11/24/16 12/17/16 Albuterol Inhaler [Ventolin Hfa 2 puff INHALATION RT-QID PRN 12/17/16 12/17/16 Inhaler] Atenolol [Tenormin] 50 mg PO DAILY 12/17/16 12/17/16 Omeprazole 40 mg PO DAILY 12/17/16 12/17/16 Potassium Chloride ER [K-Dur 20] 10 meq PO BID 12/17/16 12/17/16 Previous Rx's Medication Instructions Recorded Aspirin 325 mg PO DAILY #30 tab 10/12/16 Clopidogrel [Plavix] 75 mg PO DAILY #30 tab 10/12/16 LORazepam [Ativan] 1 mg PO BID #8 tab 12/17/16 Allergies Allergy/AdvReac Type Severity Reaction Status Date / Time No Known Allergies Allergy Verified 12/17/16 15:57 Review of Systems ROS Statement: Those systems with pertinent positive or pertinent negative responses have been documented in the HPI. ROS Other: All systems not noted in ROS Statement are negative. Past Medical History Past Medical History: Asthma, Coronary Artery Disease (CAD), Cancer, GERD/Reflux , Hypertension, Thyroid Disorder Additional Past Medical History / Comment(s): 2 CHF. Right Breast cancer stage 4(1993) had mastectomy and radiation/chemo,had genetic testing done ,was poisitve for BRCA GENE so had elective lt masectomy done.rt lung nodule( cancerous/was removed and had 4 chemo tx), 10/05/17 nstemi. Her left pulmonary nodule turned out to be lymphoma, this was removed at [facility], and postoperatively the patient received chemotherapy. History of Any Multi-Drug Resistant Organisms: None Reported Past Surgical History: Appendectomy, Cholecystectomy, Coronary Bypass/CABG, Heart Catheterization, Hysterectomy Additional Past Surgical History / Comment(s): Bone marrow transplant 1994, lanie mastectomy/radiation. 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 Smoking Status: Never smoker Past Alcohol Use History: None Reported Past Drug Use History: None Reported - Past Family History Mother Family Medical History: Diabetes Mellitus Additional Family Medical History / Comment(s): heart valve replacment Father Family Medical History: Cancer Additional Family Medical History / Comment(s): lung cancer Sister(s) Family Medical History: Cancer Additional Family Medical History / Comment(s): breast cancer General Exam Limitations: no limitations General appearance: alert, in no apparent distress Head exam: Present: atraumatic, normocephalic, normal inspection Eye exam: Present: normal appearance, PERRL, EOMI. Absent: scleral icterus, conjunctival injection, periorbital swelling ENT exam: Present: normal exam, mucous membranes moist Neck exam: Present: normal inspection. Absent: tenderness, meningismus, lymphadenopathy Respiratory exam: Present: normal lung sounds bilaterally. Absent: respiratory distress, wheezes, rales, rhonchi, stridor Cardiovascular Exam: Present: normal rhythm, tachycardia, normal heart sounds. Absent: systolic murmur, diastolic murmur, rubs, gallop, clicks GI/Abdominal exam: Present: soft, normal bowel sounds. Absent: distended, tenderness, guarding, rebound, rigid Extremities exam: Present: normal inspection, full ROM, normal capillary refill. Absent: tenderness, pedal edema, joint swelling, calf tenderness Back exam: Present: normal inspection Neurological exam: Present: alert, oriented X3, CN II-XII intact Psychiatric exam: Present: normal affect, normal mood Skin exam: Present: warm, dry, intact, normal color. Absent: rash Course Vital Signs 12/17/16 12/17/16 14:41 16:26 Temperature 98.3 F Pulse Rate 108 H 104 H Respiratory 18 22 Rate Blood Pressure 113/58 119/72 O2 Sat by Pulse 98 100 Oximetry - Reevaluation(s) Reevaluation #1: 12/17/16 16:28 Patient having significant shortness of breath EKG Findings - EKG Comments: EKG Findings:: EKG shows sinus tachycardia rate 105, GA 154, QRS 134, QTc 507 Medical Decision Making - Medical Decision Making 66 female ER for evaluation of shortness of breath, severe CHF, patient will be made for cardiac observation. Possible pacemaker placement - Lab Data Result diagrams: 12/17/16 15:45 Lab Results 12/17/16 Range/Units 15:45 WBC 8.4 (3.8-10.6) k/uL RBC 4.06 (3.80-5.40) m/uL Hgb 11.3 L (11.4-16.0) gm/dL Hct 35.6 (34.0-46.0) % MCV 87.9 (80.0-100.0) fL MCH 28.0 (25.0-35.0) pg MCHC 31.8 (31.0-37.0) g/dL RDW 16.8 H (11.5-15.5) % Plt Count 252 (150-450) k/uL Neutrophils % 50 % Lymphocytes % 33 % Monocytes % 10 % Eosinophils % 3 % Basophils % 1 % Neutrophils # 4.2 (1.3-7.7) k/uL Lymphocytes # 2.7 (1.0-4.8) k/uL Monocytes # 0.8 (0-1.0) k/uL Eosinophils # 0.2 (0-0.7) k/uL Basophils # 0.1 (0-0.2) k/uL Hypochromasia Moderate Anisocytosis Slight - Radiology Data Radiology results: report reviewed, image reviewed Disposition Clinical Impression: Systolic congestive heart failure, Chest pain, Left bundle branch block, Dyspnea, Hx of CABG Disposition: ADMITTED IP TO THIS HOSP Condition: Fair Referrals: Tamika Arechiga MD [Primary Care Provider] - 1-2 days
[2016-12-17 16:14] LABS: Anisocytosis Slight; Basophils # (A) 0.1 k/uL (0-0.2); Basophils % (A) 1 %; CH 27.7; CHCM 31.6; Eosinophils # (A) 0.2 k/uL (0-0.7); Eosinophils % (A) 3 %; HCT 35.6 % (34.0-46.0); HDW 3.32; HGB 11.3 gm/dL (11.4-16.0); Hypochromasia Moderate; Luc # (Auto) 0.34; Luc % (Auto) 4; Lymphocytes # (A) 2.7 k/uL (1.0-4.8); Lymphocytes % (A) 33 %; MCHC 31.8 g/dL (31.0-37.0); MCV 87.9 fL (80.0-100.0); Mean Platelet Volume 8.2; Monocytes # (A) 0.8 k/uL (0-1.0); Monocytes % (A) 10 %; Neutrophils # (A) 4.2 k/uL (1.3-7.7); Neutrophils % (A) 50 %; RBC 4.06 m/uL (3.80-5.40); RDW 16.8 % (11.5-15.5); WBC 8.4 k/uL (3.8-10.6); WBC (Perox) 8.64
[2016-12-17 16:25] LABS: ALT 42 U/L (9-52); AST 33 U/L (14-36); Alkaline Phosphatase 88 U/L (38-126); Anion Gap 15 mmol/L; Blood Urea Nitrogen 20 mg/dL (7-17); Calcium 9.3 mg/dL (8.4-10.2); Carbon Dioxide 22 mmol/L (22-30); Chloride 106 mmol/L (98-107); Glucose 78 mg/dL (74-99); Magnesium 1.5 mg/dL (1.6-2.3); Non-African American GFR(MDRD) 56 (>60 ml/min/1.73 sqM); Potassium 4.8 mmol/L (3.5-5.1); Sodium 143 mmol/L (137-145); Total Bilirubin 0.6 mg/dL (0.2-1.3); Total Protein 6.8 g/dL (6.3-8.2)
[2016-12-17] MEDS ORDERED: NITROGLYCERIN SL TABS 0.4 MG TAB SUBLINGUAL PRN (16:26)
--- NOTE | 2016-12-17 16:26 | XR ---
EXAMINATION TYPE: XR chest 2V DATE OF EXAM: 12/17/2016 4:23 PM COMPARISON: 12/16/2016 HISTORY: Shortness of breath TECHNIQUE: Frontal and lateral views of the chest are obtained. FINDINGS: Scattered senescent parenchymal changes noted. Hyperinflation compatible with COPD. No evidence for infiltrate. No evidence for atelectasis. Chronic mild elevation right hemidiaphragm. There is evidence of cardiomegaly. Mediastinal structures are stable and grossly unremarkable. No evidence for hilar prominence. Degenerative changes dorsal spine. IMPRESSION: 1. No evidence for acute pulmonary disease.
[2016-12-17 16:40] LABS: Creatine Kinase MB 1.3 ng/mL (0.0-2.4); Troponin I 0.013 ng/mL (0.000-0.034)
[2016-12-17 17:04] LABS: INR 1.2 (<1.1); Prothrombin Time 12.2 sec (9.0-12.0)
[2016-12-17 17:19] LABS: Partial Thromboplastin Time 21.6 sec (22.0-30.0)
[2016-12-17] MEDS ORDERED: RX INFO: IV CONTRAST WAS GIVEN 1 EACH MISC MISCELLANE PRN (18:17)
[2016-12-17] MEDS: FUROSEMIDE 10 MG/ML 4 ML VIAL IV SCH (20:53)
[2016-12-17] MEDS: LISINOPRIL 2.5 MG TAB PO SCH (20:53)
[2016-12-17] MEDS: LORazepam 1 MG TAB PO SCH (20:53)
[2016-12-17] MEDS: LEVOTHYROXINE 50 MCG TAB PO SCH (20:53)
[2016-12-17] MEDS: ALBUTEROL NEBULIZED 2.5 MG/3 ML INHALATION SCH (20:54)
[2016-12-17] MEDS: METOPROLOL SUCCINATE (ER) 25 MG TAB.ER.24H PO SCH (20:54)
[2016-12-17] MEDS: ATORVASTATIN 40 MG TAB PO SCH (20:54)
[2016-12-17] MEDS: MAGNESIUM SULFATE-D5W PMX 1 GM in DEXTROSE/WATER 1 100ML.BAG IVPB SCH ×2 (20:55→22:04)
[2016-12-17] MEDS: DOCUSATE 100 MG CAP PO SCH (20:55)
[2016-12-17] MEDS: POTASSIUM CHLORIDE ER 10 MEQ TAB.ER.PRT PO SCH (20:55)
--- NOTE | 2016-12-17 22:16 | CT ---
EXAMINATION TYPE: CT angio chest DATE OF EXAM: 12/17/2016 8:44 PM COMPARISON: Prior chest CT January 11, 2014 HISTORY: PT STATES OF SOB. R/O PE. History of breast cancer. CT DLP: 297.8 mGycm. Automated Exposure Control for Dose Reduction was Utilized. CONTRAST: CTA scan of the thorax is performed with IV Contrast, patient injected with 70 mL of Visipaque 320, p ulmonary embolism protocol. MIP Images are created on CT scanner and reviewed. FINDINGS: LUNGS: There is small right pleural effusion. There is right central lung scarring with more prominen t consolidation hilar level in which acute infectious process is not excluded. Some respiratory motio n artifact degradation or lung bases is present. Overall mosaic attenuation suggest mild alveolar massimo ma. No pneumothorax is seen bilaterally. Previously visualized left upper lung nodule is not clearly seen. MEDIASTINUM: There is satisfactory enhancement of the pulmonary artery and its branches, there is no CT evidence for pulmonary embolism. There are no greater than 1 cm hilar or mediastinal lymph nodes. No pericardial effusion is seen. Cardiomegaly is present. There is moderate to severe biatrial dil atation. There is reflux of contrast into IVC and hepatic veins suggesting some right heart failure. Post CABG changes with mediastinal clips and sternal wires is now seen. OTHER: The bilateral breasts are once again surgically absent. Cholecystectomy clips are noted. [place] us structures are demineralized. IMPRESSION: 1. No CT evidence for pulmonary embolism. 2. Cardiomegaly with new small right pleural effusion and possible mild diffuse alveolar edema. Consi nolvia CHF exacerbation. Evidence of prior fibrosis or radiation treatment change right central lung wit h slightly more prominent consolidation present towards hilum in which acute infectious process canno t be excluded. Clinical correlation advised.
[2016-12-17 22:55] LABS: Troponin I 0.013 ng/mL (0.000-0.034)
[2016-12-18 00:01] LABS: Appearance,Urine Clear (Clear); Bilirubin,Urine Negative (Negative); Glucose,Urine (UA) Negative (Negative); Ketones,Urine Negative (Negative); Leukocyte Esterase,Urine Negative (Negative); Nitrite,Urine Negative (Negative); Protein,Urine Negative (Negative); Specific Gravity,Urine 1.007 (1.001-1.035); UA Billing (MACRO vs. MICRO) CHEM; Urobilinogen,Urine <2.0 mg/dL (<2.0)
[2016-12-18 03:35] LABS: Anisocytosis Slight; Basophils # (A) 0.1 k/uL (0-0.2); Basophils % (A) 2 %; CH 27.7; CHCM 31.1; Eosinophils # (A) 0.2 k/uL (0-0.7); Eosinophils % (A) 3 %; HCT 36.1 % (34.0-46.0); HDW 3.26; HGB 11.3 gm/dL (11.4-16.0); Hypochromasia Moderate; Luc # (Auto) 0.26; Luc % (Auto) 4; Lymphocytes # (A) 1.5 k/uL (1.0-4.8); Lymphocytes % (A) 21 %; MCH 27.9 pg (25.0-35.0); MCHC 31.2 g/dL (31.0-37.0); MCV 89.4 fL (80.0-100.0); Mean Platelet Volume 7.9; Monocytes # (A) 0.7 k/uL (0-1.0); Monocytes % (A) 9 %; Neutrophils # (A) 4.5 k/uL (1.3-7.7); Neutrophils % (A) 62 %; RBC 4.04 m/uL (3.80-5.40); RDW 16.8 % (11.5-15.5); WBC 7.3 k/uL (3.8-10.6); WBC (Perox) 7.63
[2016-12-18 04:21] LABS: Anion Gap 14 mmol/L; Blood Urea Nitrogen 21 mg/dL (7-17); Calcium 9.3 mg/dL (8.4-10.2); Carbon Dioxide 27 mmol/L (22-30); Chloride 101 mmol/L (98-107); Cholesterol 95 mg/dL (<200); Glucose 91 mg/dL (74-99); HDL Cholesterol 28 mg/dL (40-60); Magnesium 2.2 mg/dL (1.6-2.3); Non-African American GFR(MDRD) 50 (>60 ml/min/1.73 sqM); Potassium 4.4 mmol/L (3.5-5.1); Sodium 142 mmol/L (137-145); Triglycerides 131 mg/dL (<150)
[2016-12-18 04:30] LABS: Creatine Kinase MB 0.8 ng/mL (0.0-2.4); Troponin I 0.016 ng/mL (0.000-0.034)
[2016-12-18] MEDS: DOCUSATE 100 MG CAP PO SCH ×2 (07:59→20:18)
[2016-12-18] MEDS: METOPROLOL SUCCINATE (ER) 25 MG TAB.ER.24H PO SCH ×2 (07:59→20:19)
[2016-12-18] MEDS: POTASSIUM CHLORIDE ER 10 MEQ TAB.ER.PRT PO SCH (07:59)
[2016-12-18] MEDS: ENOXAPARIN 40 MG/0.4 ML SYRINGE SQ SCH (07:59)
[2016-12-18] MEDS: LORazepam 1 MG TAB PO SCH ×2 (07:59→20:24)
[2016-12-18] MEDS: FUROSEMIDE 10 MG/ML 4 ML VIAL IV SCH ×2 (07:59→20:18)
[2016-12-18] MEDS: ASPIRIN 325 MG TAB PO SCH (07:59)
[2016-12-18] MEDS: CLOPIDOGREL 75 MG TAB PO SCH (08:00)
[2016-12-18] MEDS: PANTOPRAZOLE 40 MG TABLET PO SCH (08:00)
--- NOTE | 2016-12-18 08:25 | HP ---
DATE OF ADMISSION: DATE OF SERVICE: 12/17/2016 The chief complaints are shortness of breath and cough. HISTORY OF PRESENT ILLNESS: This 66-year-old woman with a past history of CAD, GERD, hypertension, hypothyroidism, history of right breast cancer stage IV with mastectomy, history of CAD, CABG, being followed Dr. Arechiga in the outpatient setting. Recent CABG about a month ago. The patient has significant shortness of breath. The patient evaluated by Cardiology because of the ejection fraction , apparently AICD placement is being planned in the near future. The patient is complaining of increased shortness of breath and cough and the patient especially shortness of breath with progress on exertion. Patient came to Dr. Arechiga's office. Because of concerns of PE, Dr. Arechiga recommend the patient to be admitted to [facility] and the patient came to [facility], admitted for further evaluation and treatment. A chest x-ray done showed no evidence of acute pulmonary disease. There is no history of fever, rigors or chills. There is no history of headaches, loss of consciousness. EKG showed right axis deviation as a nonspecific intraventricular conduction defect also. PAST MEDICAL HISTORY: History of coronary artery disease, coronary artery bypass grafting, history of asthma, history of GERD, history of hypertension, breast cancer, hypothyroidism. Medication prior to admission include: 1. K-Dur 10 mEq p.o. b.i.d. 2. Omeprazole 40 mg p.o. daily. 3. Toprol-XL 25 mg p.o. b.i.d. 4. Prinivil 2.5 mg q.h.s. 5. Synthroid 50 mcg p.o. q.h.s. 6. Ativan 1 mg p.o. b.i.d. 7. Plavix 75 mg p.o. daily. 8. Lipitor 40 mg q.h.s. 9. Tenormin 50 mg daily. 10. Aspirin 325 mg daily. 11. Albuterol 2 puffs q.i.d. p.r.n. Allergies are none. FAMILY HISTORY: History of diabetes, history of heart valve replacement in the family. SOCIAL HISTORY: No history of smoking, no history of alcohol. 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 REVIEW OF SYSTEMS: ENT: No diminished hearing. No diminished vision. CARDIOVASCULAR: As mentioned earlier. RESPIRATORY: As mentioned earlier. GI: No nausea. : No dysuria. NERVOUS SYSTEMS: No numbness or weakness. ALLERGY/IMMUNOLOGY: No asthma or hayfever. MUSCULOSKELETAL: As mentioned earlier. HEMATOLOGY: No history of anemia. ENDOCRINE: No history of diabetes or hypothyroidism present. CONSTITUTIONAL: As mentioned earlier. DERMATOLOGY: Negative. RHEUMATOLOGY: Negative. PSYCHIATRY: As mentioned earlier. PHYSICAL EXAM: Patient is alert and oriented x3, pulse 107, blood pressure 120/53, respirations 16, temperature is 97.1, pulse ox 93% on 2 L. HEENT: Conjunctivae normal. Oral mucosa moist. NECK: No jugular venous distension. CARDIOVASCULAR SYSTEM: S1, S2 muffled, no S3, no S4. Ejection is ( ) pressure. RESPIRATORY: Breath sounds diminished at the bases, bilateral scattered rhonchi and expiratory wheezing and crackles also present. Abdomen is soft, obese, nontender, no mass palpable. EXTREMITIES: Legs no edema, no swelling. NERVOUS SYSTEM: Higher functions as mentioned earlier, moves all 4 limbs, no focal motor deficits. LYMPHATICS: No lymph node enlargement in the neck, axillae or groin. JOINTS: No active arthropathy. SKIN: No ulcers, rash, bleeding. LABS: WBC 8.3, hemoglobin is 11.3, INR 1.2 and BUN is 20, magnesium 1.5. ASSESSMENT: 1. Shortness of breath and cough for evaluation, possible congestive heart failure acute exacerbation with acute on chronic systolic dysfunction. 2. Rule out pulmonary embolism. 3. Anemia, normocytic. 4. Hypomagnesemia. 5. History of coronary artery disease, coronary artery bypass grafting. 6. History of asthma. 7. History of breast cancer and mastectomy. 8. History of gastroesophageal reflux disease. 9. Hypertension. 10. Hypothyroidism. 11. History of right lung nodule, possibly lymphoma, status post resection and chemotherapy. 12. History of coronary artery disease, coronary artery bypass grafting. 13. History of bone marrow transplantation. RECOMMENDATIONS AND DISCUSSION: In this 66-year-old woman who presented with multiple complex medical issues, will monitor the patient closely. Continue with the current medications. Continue symptomatic treatment. Will recommend CT angio to rule out the possibility of pulmonary embolism,, Cardiology consultation, diuretics. Resume the home medications, guarded prognosis because of multiple complex medical issues. Further recommendations to follow. A copy of this will be forwarded to Dr. Arechiga who is the primary physician. See orders for details. ABDOMEN: Soft, MTDD
[2016-12-18] MEDS: ALBUTEROL NEBULIZED 2.5 MG/3 ML INHALATION SCH ×2 (08:40→20:00)
[2016-12-18] MEDS ORDERED: ATENOLOL 50 MG TAB PO SCH (09:00)
[2016-12-18 11:13] VITALS: BMI 28.5
--- NOTE | 2016-12-18 12:02 | P.CRDCN ---
History of Present Illness Consult date: 12/18/16 Consult reason: shortness of breath History of present illness: 66-year-old lady with history of coronary artery disease status post CABG ischemic cardiomyopathy who comes to Hospital complaining of shortness of breath she underwent bypass surgery in October of this year and has been aggressively short of breath since she has cardiomyopathy with severe LV dysfunction. She is currently awaiting a by be AICD by my associate Dr. Robert. Patient denies leg edema paroxysmal nocturnal dyspnea and orthopnea. Her predominant symptom is shortness of breath which is exertional moderate to severe in intensity relieved with rest comes on with exertion. An EKG on her shows sinus rhythm with intraventricular conduction delay she had a computed tomography scan of the chest that is negative for pulmonary embolism. She does not seem to be in overt heart failure. Her shortness of breath is probably related to underlying cardiomyopathy with severe LV dysfunction. I'm going to review her outpatient records. I'm going to talk to Dr. Robert about getting the device done sooner than later. She is currently optimal medical therapy which I reviewed and I approved to be continued. I will obtain a 2-D echo to reevaluate her LV function. Review of Systems Constitutional: Denies chills. Denies fever. Eyes: Denies blurred vision. Denies pain. Ears, nose, mouth and throat: Denies headache. Denies sore throat. Cardiovascular: Denies chest pain. has shortness of breath. Respiratory: Denies cough. Gastrointestinal: Denies abdominal pain. Denies diarrhea. Denies nausea. Denies vomiting. Musculoskeletal: Denies myalgias. Integumentary: Denies pruritus. Denies rash. Neurological: Denies numbness. Denies weakness. Psychiatric: Denies anxiety. Denies depression. Endocrine: Denies fatigue. Denies weight change. Genitourinary: Denies burning, hematuria, frequency of urination. Hematological: No anemia or excess bleeding. Past Medical History Past Medical History: Asthma, Coronary Artery Disease (CAD), Cancer, GERD/Reflux , Hypertension, Myocardial Infarction ([place]), Thyroid Disorder Additional Past Medical History / Comment(s): 2 CHF. Right Breast cancer stage 4(1993) had mastectomy and radiation/chemo,had genetic testing done ,was poisitve for BRCA GENE so had elective lt masectomy done.rt lung nodule( cancerousWAS LYMPHOMA/was removed at [facility] and post operativelt had 4 chemo tx), 10/05/17 nstemi Last Myocardial Infarction Date:: History of Any Multi-Drug Resistant Organisms: None Reported Past Surgical History: Appendectomy, Breast Surgery, Cholecystectomy, Coronary Bypass/CABG, Heart Catheterization, Hysterectomy, Tubal Ligation Additional Past Surgical History / Comment(s): LT BREAST WAS POSTIVE FOR CANCER STAGE 4 cancer-had masectomy. 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 lt cataract removed, 10-07-16 CABG( 1 VESSEL), LT INTERNAL MAMMARY ARTERY TO LEFT ANT DESCENDING ARTERY. EVAN OOPHERECTOMY(PROPHYLATIC), LUNG NODULE REMOVED(CANCEROUS-lymhoma- AND RECEIVED SEVERAL CHEMO tx, several venous access devices since removed. Past Anesthesia/Blood Transfusion Reactions: No Reported Reaction Additional Past Anesthesia/Blood Transfusion Reaction / Comment(s): takes a bit to wake up after aa Past Psychological History: No Psychological Hx Reported Additional Psychological History / Comment(s): pt lives with spouse,is independant. owns [employer] in [place]. 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 no pets. no home care services. has a shower chair and "toilet rise" and a walker if needed. Smoking Status: Never smoker Past Alcohol Use History: None Reported Past Drug Use History: None Reported - Past Family History Mother Family Medical History: Diabetes Mellitus Additional Family Medical History / Comment(s): heart valve replacment Father Family Medical History: Cancer Additional Family Medical History / Comment(s): lung cancer Sister(s) Family Medical History: Cancer Additional Family Medical History / Comment(s): breast cancer Medications and Allergies Home Medications Medication Instructions Recorded Confirmed Type Levothyroxine Sodium [Synthroid] 50 mcg PO HS 02/14/16 12/17/16 History Atorvastatin [Lipitor] 40 mg PO HS 11/13/16 12/17/16 History Lisinopril [Prinivil] 2.5 mg PO HS 11/13/16 12/17/16 History Metoprolol Succinate [Toprol XL] 25 mg PO BID 11/24/16 12/17/16 History Albuterol Inhaler [Ventolin Hfa 2 puff INHALATION RT-QID PRN 12/17/16 12/17/16 History Inhaler] Atenolol [Tenormin] 50 mg PO DAILY 12/17/16 12/17/16 History Omeprazole 40 mg PO DAILY 12/17/16 12/17/16 History Potassium Chloride ER [K-Dur 20] 10 meq PO BID 12/17/16 12/17/16 History Allergies Allergy/AdvReac Type Severity Reaction Status Date / Time No Known Allergies Allergy Verified 12/17/16 15:57 Physical Exam Vitals: Vital Signs Temp Pulse Pulse Resp BP BP Pulse Ox 12/18/16 08:51 98 12/18/16 08:42 104 H 98 12/18/16 08:00 16 12/18/16 07:00 98.1 F 105 H 16 114/63 97 12/17/16 23:22 111 H 19 12/17/16 22:57 97.6 F 111 H 19 100/60 94 L 12/17/16 20:55 80 12/17/16 19:03 97.3 F L 107 H 16 130/67 100 12/17/16 17:32 97.1 F L 107 H 16 102/56 96 Intake and Output 12/17/16 12/18/16 12/18/16 22:59 06:59 14:59 Other: Voiding Method Toilet # Voids 3 2 1 Weight 75.5 kg 75.5 kg Patient Weight 12/19/16 06:59 Weight 75.5 kg General: The patient is awake and alert, in no distress, and does not appear acutely ill. Skin: Skin is warm and dry and no rashes or lesions are noted. Eye: Pupils are equal, round and reactive to light, extra-ocular movements are intact; there is normal conjunctiva bilaterally. Ears, nose, mouth and throat: There are moist mucous membranes and no oral lesions. Neck: The neck is supple, there is no tenderness or JVD. Cardiovascular: There is a regular rate and rhythm. No murmur, rub or gallop is appreciated. Respiratory: Lungs are clear to auscultation, respirations are non-labored, breath sounds are equal. Gastrointestinal: Soft, non-distended, non-tender abdomen without masses or organomegaly noted. There is no rebound or guarding present. Bowel sounds are unremarkable. Back: There is no tenderness to palpation in the midline. There is no obvious deformity. Musculoskeletal: Normal ROM, no tenderness, There is no pedal edema. There is no calf tenderness or swelling. Extremities: No edema. Vascular: Femoral pulse is normal. Posterior tibial pulses are normal .Dorsalis pedis is palpable. Neurological: CN II-XII intact. There are no obvious motor or sensory deficits. Speech is normal. Psychiatric: Cooperative, appropriate mood & affect, normal judgment. Results 12/18/16 03:23 12/18/16 03:23 Cardiac Enzymes 12/17/16 12/18/16 Range/Units 22:21 03:23 CK-MB (CK-2) 1.0 0.8 (0.0-2.4) ng/mL Troponin I 0.013 0.016 (0.000-0.034) ng/mL Coagulation 12/17/16 Range/Units 16:40 PT 12.2 H (9.0-12.0) sec APTT 21.6 L (22.0-30.0) sec Lipids 12/18/16 Range/Units 03:23 Triglycerides 131 (<150) mg/dL Cholesterol 95 (<200) mg/dL HDL Cholesterol 28 L (40-60) mg/dL CBC 12/18/16 Range/Units 03:23 WBC 7.3 (3.8-10.6) k/uL RBC 4.04 (3.80-5.40) m/uL Hgb 11.3 L (11.4-16.0) gm/dL Hct 36.1 (34.0-46.0) % Plt Count 242 (150-450) k/uL Comprehensive Metabolic Panel 12/18/16 Range/Units 03:23 Sodium 142 (137-145) mmol/L Potassium 4.4 (3.5-5.1) mmol/L Chloride 101 (98-107) mmol/L Carbon Dioxide 27 (22-30) mmol/L BUN 21 H (7-17) mg/dL Creatinine 1.10 H (0.52-1.04) mg/dL Glucose 91 (74-99) mg/dL Calcium 9.3 (8.4-10.2) mg/dL Current Medications Generic Name Dose Route Start Last Admin Trade Name Freq PRN Reason Stop Dose Admin Albuterol Sulfate 2.5 mg 12/17/16 20:00 12/18/16 08:40 Ventolin Nebulized INHALATION 2.5 mg RT-BID BERONICA Administration Aspirin 325 mg 12/18/16 09:00 12/18/16 07:59 Aspirin PO 325 mg DAILY BERONICA Administration Atorvastatin Calcium 40 mg 12/17/16 21:00 12/17/16 20:54 Lipitor PO 40 mg HS BERONICA Administration Clopidogrel Bisulfate 75 mg 12/18/16 09:00 12/18/16 08:00 Plavix PO 75 mg DAILY BERONICA Administration Docusate Sodium 100 mg 12/17/16 21:00 12/18/16 07:59 Colace PO 100 mg BID BERONICA Administration Enoxaparin Sodium 40 mg 12/18/16 09:00 12/18/16 07:59 Lovenox SQ 40 mg DAILY BERONICA Administration Furosemide 40 mg 12/17/16 21:00 12/18/16 07:59 Lasix IV 40 mg Q12HR BERONICA Administration Levothyroxine Sodium 50 mcg 12/17/16 21:00 12/17/16 20:53 Synthroid PO 50 mcg HS BERONICA Administration Lisinopril 2.5 mg 12/17/16 21:00 12/17/16 20:53 Zestril PO Not Given HS BERONICA Lorazepam 1 mg 12/17/16 21:00 12/18/16 07:59 Ativan PO 1 mg BID BERONICA Administration Metoprolol Succinate 25 mg 12/17/16 21:00 12/18/16 07:59 Toprol Xl PO 25 mg BID BERONICA Administration Miscellaneous Information 1 each 12/17/16 18:17 Rx Info: Iv Contrast Was Given MISCELLANE 12/19/16 18:18 DAILY PRN Per Protocol Nitroglycerin 0.4 mg 12/17/16 16:26 Nitrostat SUBLINGUAL Q5M PRN Chest Pain Pantoprazole Sodium 40 mg 12/18/16 07:30 12/18/16 08:00 Protonix PO 40 mg AC-BRKFST BERONICA Administration Potassium Chloride 10 meq 12/17/16 21:00 12/18/16 07:59 K-Dur 10 PO 10 meq BID BERONICA Administration Intake and Output 12/17/16 12/18/16 12/18/16 22:59 06:59 14:59 Other: Voiding Method Toilet # Voids 3 2 1 Weight 75.5 kg 75.5 kg Patient Weight 12/19/16 06:59 Weight 75.5 kg 12/18/16 03:23 12/18/16 03:23 EKG Interpretations (text) Normal sinus rhythm with interventricular conduction delay QRS duration is 138 ms Assessment and Plan Plan: Shortness of breath Ischemic cardiomyopathy CAD status post CABG Patient shortness of breath is probably related to acute exacerbation of chronic systolic heart failure. BNP is elevated. Patient is currently on optimal medical therapy. Pulmonary embolism is ruled out. Patient will benefit from by be AICD.
--- NOTE | 2016-12-18 14:25 | P.PN ---
Subjective Date of service 12/18/2016. Progress note being dictated for Dr. Oates. Interval history: This a 66-year-old female admitted with shortness of breath, cough in a patient with recent CABG, ischemic cardiomyopathy, severe LV dysfunction awaiting AICD placement and multiple other medical issues. CTA reported no evidence for pulmonary embolism; cardiomegaly with new small right pleural effusion, possible mild diffuse alveolar edema, possible CHF exacerbation, evidence of prior fibrosis or radiation treatment change right central lung with slightly more prominent consolidation towards hilum present. 2-D echo pending. Breathing improved. States she slept better last night with head of bed elevated. Evaluated by cardiology with recommendations noted. Diuresed on scheduled Lasix IV push every 12 hours with mildly elevated renal function. Review of systems: HEENT: Denies headache or focal deficits. Denies any dizziness or lightheadedness. Respiratory:shortness of breath improving. Minimal productive cough. Cardiac: Denies any chest pain, palpitations. GI: Denies any nausea, vomiting, or diarrhea. Denies any abdominal tenderness. : Denies any dysuria. Psychiatry: Denies any anxiety or depression. Active Medications Albuterol Sulfate (Ventolin Nebulized) 2.5 mg INHALATION RT-BID [facility] Last Admin: 12/18/16 08:40 Dose: 2.5 mg Aspirin (Aspirin) 325 mg PO DAILY [facility] Last Admin: 12/18/16 07:59 Dose: 325 mg Atorvastatin Calcium (Lipitor) 40 mg PO [facility] Last Admin: 12/17/16 20:54 Dose: 40 mg Clopidogrel Bisulfate (Plavix) 75 mg PO DAILY [facility] Last Admin: 12/18/16 08:00 Dose: 75 mg Docusate Sodium (Colace) 100 mg PO BID [facility] Last Admin: 12/18/16 07:59 Dose: 100 mg Enoxaparin Sodium (Lovenox) 40 mg SQ DAILY [facility] Last Admin: 12/18/16 07:59 Dose: 40 mg Furosemide (Lasix) 40 mg IV Q12HR [facility] Last Admin: 12/18/16 07:59 Dose: 40 mg Levothyroxine Sodium (Synthroid) 50 mcg PO [facility] Last Admin: 12/17/16 20:53 Dose: 50 mcg Lisinopril (Zestril) 2.5 mg PO [facility] Last Admin: 12/17/16 20:53 Dose: Not Given Lorazepam (Ativan) 1 mg PO BID [facility] Last Admin: 12/18/16 07:59 Dose: 1 mg Metoprolol Succinate (Toprol Xl) 25 mg PO BID [facility] Last Admin: 12/18/16 07:59 Dose: 25 mg Miscellaneous Information (Rx Info: Iv Contrast Was Given) 1 each MISCELLANE DAILY PRN PRN Reason: Per Protocol Stop: 12/19/16 18:18 Nitroglycerin (Nitrostat) 0.4 mg SUBLINGUAL Q5M PRN PRN Reason: Chest Pain Pantoprazole Sodium (Protonix) 40 mg PO AC-BRKFST [facility] Last Admin: 12/18/16 08:00 Dose: 40 mg Potassium Chloride (K-Dur 10) 10 meq PO BID [facility] Last Admin: 12/18/16 07:59 Dose: 10 meq Objective - Vital Signs Vital signs: Vital Signs Temp 98.1 F 12/18/16 07:00 Pulse 98 12/18/16 08:51 Resp 16 12/18/16 08:00 BP 114/63 12/18/16 07:00 Pulse Ox 98 12/18/16 08:42 Intake & Output 12/17/16 12/18/16 12/18/16 18:59 06:59 18:59 Weight 75.5 kg 75.5 kg Other: Voiding Method Toilet # Voids 2 1 - Exam PHYSICAL EXAM: VITAL SIGNS: As above GENERAL: [Sitting up at side of bed, no acute distress] HEENT: [Pupils equal conjunctiva normal.] NECK: [Supple, no JVD] RESPIRATORY EFFORT:[Mildly increased] LUNGS: [Essentially clear, no crackles rhonchi or wheezing] CARDIOVASCULAR[regular S1 and S2, no murmur rub or gallop, no edema] GI: [Abdomen soft, nontender, positive bowel sounds.] PSYCH: [Alert and oriented -3, mood and affect normal.] NEURO: No focal deficits, moves all 4 extremities, strength and sensation grossly intact - Labs CBC & Chem 7: 12/18/16 03:23 12/18/16 03:23 Labs: Abnormal Lab Results - Last 24 Hours (Table) 12/17/16 12/18/16 12/18/16 Range/Units 16:40 03:23 03:23 Hgb 11.3 L (11.4-16.0) gm/dL RDW 16.8 H (11.5-15.5) % PT 12.2 H (9.0-12.0) sec APTT 21.6 L (22.0-30.0) sec BUN 21 H (7-17) mg/dL Creatinine 1.10 H (0.52-1.04) mg/dL HDL Cholesterol 28 L (40-60) mg/dL Assessment and Plan Plan: 1. [Shortness of breath with cough, suspect CHF acute on chronic exacerbation, systolic dysfunction]. 2. [Pulmonary embolism ruled out]. 3. [CAD status post recent CABG, Ischemic cardiomyopathy, awaiting AICD placement]. 4. [Anemia, normocytic]. 5. [Hypomagnesemia]. 6. [History of chronic intermittent asthma]. 7. [History of breast CA, prostatectomy]. 8. Gastroesophageal reflux disease 9. Hypertension 10. Hypothyroidism 11. History of right lung nodule, possible lymphoma, status post resection and chemotherapy 12. Bone marrow transplantation history Plan: Continue on current medication regime ,monitoring and symptomatic treatment. 1400 mL per 24-hour fluid restrictions initiated. CHF pathway with strict I&O's including daily weights. Follow closely with cardiology. Close monitoring of renal function with repeat labs ordered for a.m. The impression and plan of care has been dictated as directed. : I performed a H&P examination of this patient and discussed the same with the dictator. I agree with the dictator's note. Any additional findings/opinions/ etc. will be noted.
--- NOTE | 2016-12-18 14:54 | P.CNPUL ---
History of Present Illness Consult date: 12/18/16 Requesting physician: Lito Oates Reason for consult: dyspnea Chief complaint: Shortness of breath History of present illness: This is a very pleasant 66-year-old female patient who follows with Dr. Arechiga as her primary care physician. She has a history of breast cancer of the right breast back in 1993 where she had undergone mastectomy followed by chemo radiation, she was also tested positive for the BRCA gene and had an elective left mastectomy as well. She is noted to have a right lung nodule that was positive for lymphoma which was removed at [facility]. Following that she had 4 chemotherapy treatments. She also has a history of chronic bronchial asthma, coronary artery disease, gastroesophageal reflux disease, hypertension, hypothyroidism. In September 2016 she had suffered a non-ST segment elevation myocardial infarction with subsequent coronary artery bypass grafting times one with a BRAR to the LAD in October 2016. Her postoperative echocardiogram continued to reveal severe left ventricular systolic dysfunction with an ejection fraction 25-30%. The plan was for an AICD placement by Dr. Garcia. She was hospitalized again in November 2016 for hypotension and her medications were adjusted. She had seen Dr. Arechiga in our office yesterday 12/17/2016 for complaints of significant dyspnea on minimal exertion. She also had complaints of orthopnea. Nonproductive cough. No chills or night sweats. She also is having complaints of palpitations and near syncopal episodes. She was referred to the emergency room for the same. A CT angiogram was requested and there was no evidence of pulmonary embolism. There was continued cardiomegaly with a new small right pleural effusion and mild diffuse alveolar edema. She is being treated for an acute exacerbation of systolic congestive heart failure. She is seen today in consultation. She is currently sitting up in bed. She is awake and alert in no acute distress. She states she is breathing about the same today as compared to yesterday. She denies any worsening shortness of breath, cough or congestion. No hemoptysis. No leukocytosis. She is afebrile. He is maintaining O2 saturations in the upper 90s on room air. No chest pain, palpitations lightheadedness or dizziness. Her troponins were negative 3. Her proBNP is 6160. Review of Systems A 14 point review of system was conducted. All negative other than as mentioned in HPI. Past Medical History Past Medical History: Asthma, Coronary Artery Disease (CAD), Cancer, GERD/Reflux , Hypertension, Myocardial Infarction ([place]), Thyroid Disorder Additional Past Medical History / Comment(s): NSTEMI in September 2016 with subsequent coronary artery bypass grafting x 1, BRAR to the LAD, in October 2016. Severe ischemic cardiomyopathy with estimated ejection fraction 25-30%. Pending AICD placement. Admitted for hypotension in 11-13-16. Remote history of right Breast cancer stage 4(1993) had mastectomy and radiation/chemo,had genetic testing done,was poisitve for BRCA GENE so had elective lt masectomy done. Right lung nodule cancerous/lymphoma was removed at [facility] and post operative received 4 chemo tx) Last Myocardial Infarction Date:: History of Any Multi-Drug Resistant Organisms: None Reported Past Surgical History: Appendectomy, Breast Surgery, Cholecystectomy, Coronary Bypass/CABG, Heart Catheterization, Hysterectomy, Tubal Ligation Past Anesthesia/Blood Transfusion Reactions: No Reported Reaction Additional Past Anesthesia/Blood Transfusion Reaction / Comment(s): takes a bit to wake up after aa Past Psychological History: No Psychological Hx Reported Additional Psychological History / Comment(s): pt lives with spouse,is independant. owns [employer] in [place]. 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 no pets. no home care services. has a shower chair and "toilet rise" and a walker if needed. Smoking Status: Never smoker Past Alcohol Use History: None Reported Past Drug Use History: None Reported - Past Family History Mother Family Medical History: Diabetes Mellitus Additional Family Medical History / Comment(s): heart valve replacment Father Family Medical History: Cancer Additional Family Medical History / Comment(s): lung cancer Sister(s) Family Medical History: Cancer Additional Family Medical History / Comment(s): breast cancer Medications and Allergies Home Medications Medication Instructions Recorded Confirmed Type Levothyroxine Sodium [Synthroid] 50 mcg PO HS 02/14/16 12/17/16 History Atorvastatin [Lipitor] 40 mg PO HS 11/13/16 12/17/16 History Lisinopril [Prinivil] 2.5 mg PO HS 11/13/16 12/17/16 History Metoprolol Succinate [Toprol XL] 25 mg PO BID 11/24/16 12/17/16 History Albuterol Inhaler [Ventolin Hfa 2 puff INHALATION RT-QID PRN 12/17/16 12/17/16 History Inhaler] Atenolol [Tenormin] 50 mg PO DAILY 12/17/16 12/17/16 History Omeprazole 40 mg PO DAILY 12/17/16 12/17/16 History Potassium Chloride ER [K-Dur 20] 10 meq PO BID 12/17/16 12/17/16 History Allergies Allergy/AdvReac Type Severity Reaction Status Date / Time No Known Allergies Allergy Verified 12/17/16 15:57 Physical Exam Vitals: Vital Signs Temp Pulse Pulse Resp BP BP Pulse Ox 12/18/16 08:51 98 12/18/16 08:42 104 H 98 12/18/16 08:00 16 12/18/16 07:00 98.1 F 105 H 16 114/63 97 12/17/16 23:22 111 H 19 12/17/16 22:57 97.6 F 111 H 19 100/60 94 L 12/17/16 20:55 80 12/17/16 19:03 97.3 F L 107 H 16 130/67 100 12/17/16 17:32 97.1 F L 107 H 16 102/56 96 Intake and Output 12/17/16 12/18/16 12/18/16 22:59 06:59 14:59 Intake Total 200 Balance 200 Intake: Oral 200 Other: Voiding Method Toilet # Voids 3 2 3 Weight 75.5 kg 75.5 kg Patient Weight 12/19/16 06:59 Weight 75.5 kg GENERAL EXAM: Alert, comfortable in no apparent distress. HEAD: Normocephalic. EYES: Normal reaction of pupils, equal size. NOSE: Clear with pink turbinates. THROAT: No erythema or exudates. NECK: No masses, no JVD. CHEST: No chest wall deformity. LUNGS: Equal air entry with crackles in the posterior bases. CVS: S1 and S2 normal with audible murmur, regular rhythm. ABDOMEN: No hepatosplenomegaly, normal bowel sounds, no guarding or rigidity. SPINE: No scoliosis or deformity SKIN: No rashes CENTRAL NERVOUS SYSTEM: No focal deficits, tone is normal in all 4 extremities. Extremities: There is trace peripheral edema. No clubbing, no cyanosis. Peripheral pulses are intact. Results - Laboratory Findings CBC and BMP: 12/18/16 03:23 12/18/16 03:23 PT/INR, D-dimer PT 12.2 sec (9.0-12.0) H 12/17/16 16:40 INR 1.2 (<1.1) 12/17/16 16:40 Abnormal lab findings: Abnormal Labs 12/17/16 12/18/16 12/18/16 16:40 03:23 03:23 Hgb 11.3 L RDW 16.8 H PT 12.2 H APTT 21.6 L BUN 21 H Creatinine 1.10 H HDL Cholesterol 28 L - Diagnostic Findings Chest x-ray: image reviewed CT scan - chest: image reviewed Assessment and Plan Plan: Impression: #1 Acute exacerbation of chronic systolic congestive heart failure with severely impaired left ventricular systolic function with estimated ejection fraction 25-30%. #2 Dyspnea secondary to above with new right pleural effusion and mild diffuse alveolar edema. #3 Severe ischemic cardiomyopathy. #4 Coronary artery disease with previous coronary artery bypass grafting 1 with a BRAR to the LAD in October 2016. #5 Non-ST segment elevation myocardial infarction in September 2016. #6 Chronic cough secondary to radiation pneumonitis. #7 Chronic bronchial asthma currently inactive and stable. #8 Hypertension. #9 Hypothyroidism. #10 History of breast cancer status post mastectomy and chemo/radiation. Found to be BRCA gene positive and undergone a mastectomy prophylactically area #11 Bone marrow transplant in 1994 with history of lymphoma treated at [facility]. Plan: The patient was seen and evaluated by Dr. Santa. Her chest x-ray, computed tomography scan and labs were reviewed. No clear evidence of acute pulmonary process. Suspect an acute exacerbation of congestive heart failure. She remains on Lasix 40 mg IV push every 12 hours. Continue Lovenox for DVT prophylaxis and Protonix for GI prophylaxis. Bronchodilators as needed. Cardiology is on the case and plans to repeat her echocardiogram. She may benefit from a biventricular AICD. Awaiting further input from Dr. Garcia. We will continue to follow and make further recommendations based on her clinical status. Time with Patient: Greater than 30
--- NOTE | 2016-12-18 20:14 | PN ---
DATE OF SERVICE: 12/18/2016 This 66-year-old woman was admitted with shortness of breath and possible CHF. CT angiography is negative for pulmonary embolism. Seen and evaluated the patient along with the nurse practitioner. We will follow the patient closely with Dr. Santa and Cardiology. Please refer to the nurse practitioner notes documented as a scribe for further information. Prognosis guarded. Further recommendations to follow.
[2016-12-18] MEDS: ATORVASTATIN 40 MG TAB PO SCH (20:18)
[2016-12-18] MEDS: LISINOPRIL 2.5 MG TAB PO SCH (20:19)
[2016-12-18] MEDS: LEVOTHYROXINE 50 MCG TAB PO SCH (20:19)
[2016-12-19] MEDS: ENOXAPARIN 40 MG/0.4 ML SYRINGE SQ SCH (08:56)
[2016-12-19] MEDS: FUROSEMIDE 10 MG/ML 4 ML VIAL IV SCH (08:56)
[2016-12-19] MEDS: LORazepam 1 MG TAB PO SCH ×2 (08:56→20:47)
[2016-12-19] MEDS: PANTOPRAZOLE 40 MG TABLET PO SCH (08:56)
[2016-12-19] MEDS: CLOPIDOGREL 75 MG TAB PO SCH (08:56)
[2016-12-19] MEDS: DOCUSATE 100 MG CAP PO SCH ×2 (08:57→20:47)
[2016-12-19] MEDS: ASPIRIN 325 MG TAB PO SCH (08:57)
[2016-12-19] MEDS: ALBUTEROL NEBULIZED 2.5 MG/3 ML INHALATION SCH ×2 (09:06→21:02)
[2016-12-19 09:20] LABS: Anisocytosis Slight; Basophils # (A) 0.1 k/uL (0-0.2); Basophils % (A) 1 %; CH 27.9; CHCM 30.9; Eosinophils # (A) 0.2 k/uL (0-0.7); Eosinophils % (A) 3 %; HCT 38.4 % (34.0-46.0); HDW 3.23; Hypochromasia Moderate; Luc # (Auto) 0.17; Luc % (Auto) 2; Lymphocytes # (A) 1.4 k/uL (1.0-4.8); Lymphocytes % (A) 20 %; MCH 28.3 pg (25.0-35.0); MCHC 31.3 g/dL (31.0-37.0); MCV 90.5 fL (80.0-100.0); Monocytes # (A) 0.5 k/uL (0-1.0); Monocytes % (A) 7 %; Neutrophils # (A) 4.6 k/uL (1.3-7.7); Neutrophils % (A) 67 %; RBC 4.24 m/uL (3.80-5.40); RDW 16.9 % (11.5-15.5); WBC 6.9 k/uL (3.8-10.6); WBC (Perox) 7.07
[2016-12-19 09:30] LABS: Anion Gap 15 mmol/L; Blood Urea Nitrogen 20 mg/dL (7-17); Calcium 9.4 mg/dL (8.4-10.2); Carbon Dioxide 27 mmol/L (22-30); Chloride 98 mmol/L (98-107); Glucose 163 mg/dL (74-99); Non-African American GFR(MDRD) 50 (>60 ml/min/1.73 sqM); Potassium 4.3 mmol/L (3.5-5.1); Sodium 140 mmol/L (137-145)
--- NOTE | 2016-12-19 11:52 | PN ---
A 66-year-old lady with history of CAD, status post CABG, ischemic cardiomyopathy with severe LV dysfunction who was admitted to hospital with shortness of breath, probably secondary to acute exacerbation of chronic systolic heart failure. Her symptoms have improved. She complains of cough with some sputum. She has been treated with IV diuretics with significant improvement in her symptoms. Patient was waiting for a Bi-V AICD in the outpatient setting. I spoke to Dr. Garcia yesterday. He has postponed her Bi-V ICD and this will now be done before the end of the month. This morning, she is doing well and heart rate is around 100 beats per minute. Blood pressure is 106/50. Respiratory rate is 18. Chest exam reveals good air entry bilaterally. Heart exam reveals first and second heart sounds. No gallop. No murmur, no rub. Abdomen is soft, nontender. Exam of the extremities did not reveal any edema. Peripheral pulses are palpable. Labs show that the hemoglobin is 12. Potassium is 4.3. Creatinine is 1.1 LDL cholesterol is 41. Troponins are negative. BNP was elevated on initial presentation. ASSESSMENT: 1. Acute exacerbation of chronic systolic heart failure, improved. 2. Ischemic cardiomyopathy awaiting Bi-V AICD. PLAN: I am going to add digoxin 0.125 mg daily given the mild tachycardia noted. Her creatinine is 1.1. She is already on beta blockers, ROSE inhibitors and Aldactone. She is stable to be discharged home and patient will first have to Bi-V AICD and then follow up with Dr. Coleman in the office.
[2016-12-19] MEDS: SPIRONOLACTONE 25 MG TAB PO SCH (12:14)
[2016-12-19] MEDS: DIGOXIN 125 MCG TAB PO SCH (12:14)
[2016-12-19] MEDS: METOPROLOL SUCCINATE (ER) 25 MG TAB.ER.24H PO SCH ×2 (12:14→20:47)
--- NOTE | 2016-12-19 12:56 | CDI ---
In responding to this query, please exercise your independent professional judgment. The [facility] Coding Staff and Clinical Documentation Specialists appreciate your assistance in clarifying documentation, maintaining compliance with coding guidelines, accurately documenting patients condition and capturing severity of illness. The fact that a question is asked does not imply that any particular answer is desired or expected. Communication forms are a method of clarifying documentation and are not made part of the Legal Health Record. Thank you in advance for your clarification. Last Revision, August 2015 Margi Hair [address] [facility] [place] [address] Documentation Clarification Form Date: 12/19/2016 12:51:00 PM From: Puja Keith RN, CCDS Admit Date: 12/17/2016 4:26:00 PM Patient Name: Perla Kim Visit Number: [id number] Dr. Lito Oates A diagnosis of anemia lacks specificity to accurately reflect your patients severity of condition and clarification is needed. Patient history/risk factors: History of coronary artery disease, coronary artery bypass grafting, history of asthma, history of GERD, history of hypertension, breast cancer, hypothyroidism. Clinical Indicators: 12/18 Attending Progress Note: "normocytic anemia." Hemoglobin: 11.3/12 Hematocrit: 35.6/36.1/38.4 Treatment: Labs: AM Daily In order to capture the severity of condition, please clarify the type of anemia and etiology if known: Acute blood loss anemia Acute on chronic blood loss anemia Chronic blood loss anemia Iron deficiency anemia Hemolytic anemia Drug induced anemia Anemia due to malignancy Nutritional anemia Anemia of chronic kidney disease Unable to determine Other, please specify Please document in your progress notes and discharge summary in order to capture severity of illness and risk of mortality. Include clinical findings that support your diagnosis. FYI: Press F11 to launch patient chart. Place X here if this finding has no clinical significance, is not applicable or if you are not able to provide any additional documentation. HEATHER
--- NOTE | 2016-12-19 15:57 | P.PN ---
Subjective This is a very pleasant 66-year-old female patient who follows with Dr. Arechiga as her primary care physician. She has a history of breast cancer of the right breast back in 1993 where she had undergone mastectomy followed by chemo radiation, she was also tested positive for the BRCA gene and had an elective left mastectomy as well. She is noted to have a right lung nodule that was positive for lymphoma which was removed at [facility]. Following that she had 4 chemotherapy treatments. She also has a history of chronic bronchial asthma, coronary artery disease, gastroesophageal reflux disease, hypertension, hypothyroidism. In September 2016 she had suffered a non-ST segment elevation myocardial infarction with subsequent coronary artery bypass grafting times one with a BRAR to the LAD in October 2016. Her postoperative echocardiogram continued to reveal severe left ventricular systolic dysfunction with an ejection fraction 25-30%. The plan was for an AICD placement by Dr. Garcia. She was hospitalized again in November 2016 for hypotension and her medications were adjusted. She had seen Dr. Arechiga in our office yesterday 12/17/2016 for complaints of significant dyspnea on minimal exertion. She also had complaints of orthopnea. Nonproductive cough. No chills or night sweats. She also is having complaints of palpitations and near syncopal episodes. She was referred to the emergency room for the same. A CT angiogram was requested and there was no evidence of pulmonary embolism. There was continued cardiomegaly with a new small right pleural effusion and mild diffuse alveolar edema. She is being treated for an acute exacerbation of systolic congestive heart failure. She is seen today in consultation. She is currently sitting up in bed. She is awake and alert in no acute distress. She states she is breathing about the same today as compared to yesterday. She denies any worsening shortness of breath, cough or congestion. No hemoptysis. No leukocytosis. She is afebrile. He is maintaining O2 saturations in the upper 90s on room air. No chest pain, palpitations lightheadedness or dizziness. Her troponins were negative 3. Her proBNP is 6160. The patient was seen and evaluated The patient was seen and evaluated again today 12/19/2016 on the regular medical floor. She is awake and alert in no acute distress. She states she is breathing much easier today as compared to yesterday and the day before. She denies any worsening shortness of breath, cough or congestion. She is anxious to go home. She remains in a negative balance. She is maintaining good O2 saturations in the upper 90s on room air. She is afebrile. Objective - Vital Signs Vital signs: Vital Signs Temp 97.5 F L 12/19/16 15:00 Pulse 107 H 12/19/16 15:00 Resp 16 12/19/16 15:00 BP 91/63 12/19/16 15:00 Pulse Ox 96 12/19/16 15:00 Intake & Output 12/18/16 12/19/16 12/19/16 18:59 06:59 18:59 Intake Total 200 400 Output Total 400 Balance 200 400 -400 Weight 75.5 kg 72.8 kg Intake: Oral 200 400 Output: Urine 400 Other: # Voids 3 2 - Exam GENERAL EXAM: Alert, comfortable in no apparent distress. HEAD: Normocephalic. EYES: Normal reaction of pupils, equal size. NOSE: Clear with pink turbinates. THROAT: No erythema or exudates. NECK: No masses, no JVD. CHEST: No chest wall deformity. LUNGS: Equal air entry with crackles in the posterior bases. CVS: S1 and S2 normal with audible murmur, regular rhythm. ABDOMEN: No hepatosplenomegaly, normal bowel sounds, no guarding or rigidity. SPINE: No scoliosis or deformity SKIN: No rashes CENTRAL NERVOUS SYSTEM: No focal deficits, tone is normal in all 4 extremities. Extremities: There is trace peripheral edema. No clubbing, no cyanosis. Peripheral pulses are intact. - Labs CBC & Chem 7: 12/19/16 08:50 12/19/16 08:50 Labs: Abnormal Lab Results - Last 24 Hours (Table) 12/19/16 12/19/16 Range/Units 08:50 08:50 RDW 16.9 H (11.5-15.5) % BUN 20 H (7-17) mg/dL Creatinine 1.10 H (0.52-1.04) mg/dL Glucose 163 H (74-99) mg/dL Assessment and Plan Plan: Impression: #1 Acute exacerbation of chronic systolic congestive heart failure with severely impaired left ventricular systolic function with estimated ejection fraction 25-30%. #2 Dyspnea secondary to above with new right pleural effusion and mild diffuse alveolar edema. #3 Severe ischemic cardiomyopathy. #4 Coronary artery disease with previous coronary artery bypass grafting 1 with a BRAR to the LAD in October 2016. #5 Non-ST segment elevation myocardial infarction in September 2016. #6 Chronic cough secondary to radiation pneumonitis. #7 Chronic bronchial asthma currently inactive and stable. #8 Hypertension. #9 Hypothyroidism. #10 History of breast cancer status post mastectomy and chemo/radiation. 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 Plan: The patient was seen and evaluated by Dr. Santa. She is currently stable from the pulmonary standpoint. She is been cleared for discharge from cardiology as well. The plan is for about Bi-V AICD to be placed and scheduled from the outpatient setting. She'll follow-up with Dr. Arechiga in our office in 1 week. We'll repeat her chest x-ray then. She is encouraged however to call sooner with any recurrence of symptoms or other questions or concerns.
--- NOTE | 2016-12-19 16:07 | P.PN ---
Subjective Date of service 12/19/2016. Progress note being dictated for Dr. Oates. Interval history: This a 66-year-old female admitted with shortness of breath, cough in a patient with recent CABG, ischemic cardiomyopathy, severe LV dysfunction awaiting AICD placement and multiple other medical issues. Breathing improved, diuresing well on Lasix IV push with 24-hour I&O reflecting a decrease in weight. Renal function unchanged. Digoxin added to med regime per cardiology related to mild tachycardia.Denies chest pain, palpitations or increasing shortness of breath. Objective - Vital Signs Vital signs: Vital Signs Temp 97.5 F L 12/19/16 15:00 Pulse 107 H 12/19/16 15:00 Resp 16 12/19/16 15:00 BP 91/63 12/19/16 15:00 Pulse Ox 96 12/19/16 15:00 Intake & Output 12/18/16 12/19/16 12/19/16 18:59 06:59 18:59 Intake Total 200 400 Output Total 400 Balance 200 400 -400 Weight 75.5 kg 72.8 kg Intake: Oral 200 400 Output: Urine 400 Other: # Voids 3 2 - Exam PHYSICAL EXAM: VITAL SIGNS: As above GENERAL: [Sitting up at side of bed, no acute distress] HEENT: [Pupils equal conjunctiva normal.] NECK: [Supple, no JVD] RESPIRATORY EFFORT:[Normal LUNGS: [Essentially clear, no crackles rhonchi or wheezing] CARDIOVASCULAR[regular S1 and S2, no murmur rub or gallop, no edema] GI: [Abdomen soft, nontender, positive bowel sounds.] PSYCH: [Alert and oriented -3, mood and affect normal.] NEURO: No focal deficits, moves all 4 extremities, strength and sensation grossly intact - Labs CBC & Chem 7: 12/19/16 08:50 12/19/16 08:50 Labs: Abnormal Lab Results - Last 24 Hours (Table) 12/19/16 12/19/16 Range/Units 08:50 08:50 RDW 16.9 H (11.5-15.5) % BUN 20 H (7-17) mg/dL Creatinine 1.10 H (0.52-1.04) mg/dL Glucose 163 H (74-99) mg/dL Assessment and Plan Plan: 1. [Shortness of breath with cough, suspect CHF acute on chronic exacerbation, systolic dysfunction]. 2. [Pulmonary embolism ruled out]. 3. [CAD status post recent CABG, Ischemic cardiomyopathy, awaiting AICD placement]. 4. [Anemia, normocytic, etiology unknown]. 5. [Hypomagnesemia]. 6. [History of chronic intermittent asthma]. 7. [History of breast CA, prostatectomy]. 8. Gastroesophageal reflux disease 9. Hypertension 10. Hypothyroidism 11. History of right lung nodule, possible lymphoma, status post resection and chemotherapy 12. Bone marrow transplantation history Plan: Continue on current medication regime ,monitoring and symptomatic treatment. Maintain fluid restrictions,SEN, CHF pathway with strict I&O's including daily weights. Close monitoring of renal function with repeat labs ordered for a.m. Discharge planning in progress for tomorrow. The impression and plan of care has been dictated as directed. : I performed a H&P examination of this patient and discussed the same with the dictator. I agree with the dictator's note. Any additional findings/opinions/ etc. will be noted.
--- NOTE | 2016-12-19 20:36 | PN ---
DATE OF SERVICE: 12/19/2016 This 66-year-old woman was admitted with shortness of breath, possible CHF, acute exacerbation. Seen and evaluated the patient along with the nurse practitioner. Please refer to the nurse practitioner's notes and impressions documented as a scribe for further information. We will continue monitoring and continue with the diuretics, monitor fluid and electrolyte balance closely. Increase ambulation. Further recommendations to follow.
[2016-12-19] MEDS: LISINOPRIL 2.5 MG TAB PO SCH (20:47)
[2016-12-19] MEDS: LEVOTHYROXINE 50 MCG TAB PO SCH (20:47)
[2016-12-19] MEDS: ATORVASTATIN 40 MG TAB PO SCH (20:47)
[2016-12-20 07:44] VITALS: BP 115/54; RESP 20; TEMP 96.4
[2016-12-20] MEDS: DIGOXIN 125 MCG TAB PO SCH (08:22)
[2016-12-20] MEDS: CLOPIDOGREL 75 MG TAB PO SCH (08:22)
[2016-12-20] MEDS: METOPROLOL SUCCINATE (ER) 25 MG TAB.ER.24H PO SCH (08:22)
[2016-12-20] MEDS: PANTOPRAZOLE 40 MG TABLET PO SCH (08:22)
[2016-12-20] MEDS: LORazepam 1 MG TAB PO SCH (08:22)
[2016-12-20] MEDS: ENOXAPARIN 40 MG/0.4 ML SYRINGE SQ SCH (08:22)
[2016-12-20] MEDS: DOCUSATE 100 MG CAP PO SCH (08:22)
[2016-12-20] MEDS: ASPIRIN 325 MG TAB PO SCH (08:22)
[2016-12-20] MEDS: SPIRONOLACTONE 25 MG TAB PO SCH (08:23)
[2016-12-20] MEDS ORDERED: FUROSEMIDE 40 MG TAB PO SCH (09:00)
[2016-12-20 10:06] LABS: Anisocytosis Slight; Basophils # (A) 0.1 k/uL (0-0.2); Basophils % (A) 1 %; CH 27.9; CHCM 31.1; Eosinophils # (A) 0.3 k/uL (0-0.7); Eosinophils % (A) 4 %; HCT 37.8 % (34.0-46.0); HDW 3.21; HGB 11.7 gm/dL (11.4-16.0); Hypochromasia Moderate; Luc % (Auto) 3; Lymphocytes # (A) 1.5 k/uL (1.0-4.8); Lymphocytes % (A) 20 %; MCH 27.8 pg (25.0-35.0); MCHC 30.9 g/dL (31.0-37.0); MCV 90.1 fL (80.0-100.0); Mean Platelet Volume 7.8; Monocytes # (A) 0.5 k/uL (0-1.0); Monocytes % (A) 7 %; Neutrophils % (A) 66 %; RDW 16.9 % (11.5-15.5); WBC 7.5 k/uL (3.8-10.6); WBC (Perox) 7.79
[2016-12-20 10:16] LABS: Calcium 9.4 mg/dL (8.4-10.2); Potassium 4.5 mmol/L (3.5-5.1)
--- NOTE | 2016-12-20 10:38 | ECHOF ---
Referral Reason:[facility] MEASUREMENTS -------- HEIGHT: 162.6 cm WEIGHT: 72.6 kg BP: IVSd: 0.8 cm (0.6 - 1.1) LVIDd: 4.6 cm (3.9 - 5.3) LVPWd: 1.0 cm (0.6 - 1.1) IVSs: 0.9 cm LVIDs: 4.5 cm LVPWs: 1.0 cm LA Diam: 3.7 cm (2.7 - 3.8) Ao Diam: 3.0 cm (2.0 - 3.7) AV Cusp: 1.3 cm (1.5 - 2.6) LA Diam: 3.9 cm (2.7 - 3.8) MV EXCURSION: 13.536 mm (> 18.000) MV EF SLOPE: 83 mm/s (70 - 150) EPSS: 1.4 cm MV E Blaine: 1.04 m/s MV DecT: 135 ms MV A Blaine: 0.65 m/s MV E/A Ratio: 1.61 AV maxP.52 mmHg AV meanP.02 mmHg AR PHT: 439 ms RAP: 5.00 mmHg RVSP: 32.70 mmHg FINDINGS -------- Sinus rhythm. This was a technically adequate study. Left ventricular wall thickness is normal. There is severe global hypokinesis of LV . Overall left ventricular systolic function is severely impaired with, an EF < 20%. The right ventricle is normal in size and function. The left atrium is normal in size. The right atrium is normal in size. Aortic valve is trileaflet and is moderately thickened. There is mild aortic regurgitation. There is mild aortic stenosis present. Peak/mean gradient across the Aortic Valve is 18.52mmHg / 11.02mmHg. The mitral valve leaflets are mildly thickened. Icyw-ej-bolylbjt mitral regurgitation is present. Moderate to severe tricuspid regurgitation present. The right ventricular systolic pressure, as measured by Doppler, is 32.70mmHg. Trace/mild (physiologic) pulmonic regurgitation. The aortic root size is normal. The pericardium is normal. CONCLUSIONS -------- 1. Sinus rhythm. 2. There is mild aortic regurgitation. 3. There is mild aortic stenosis present. 4. Peak/mean gradient across the Aortic Valve is 18.52mmHg / 11.02mmHg. 5. The mitral valve leaflets are mildly thickened. 6. Fvlx-ss-iaegftqo mitral regurgitation is present. 7. Moderate to severe tricuspid regurgitation present. 8. The right ventricular systolic pressure, as measured by Doppler, is 32.70mmHg. 9. Trace/mild (physiologic) pulmonic regurgitation. 10. The aortic root size is normal. 11. The pericardium is normal. 12. This was a technically adequate study. 13. Left ventricular wall thickness is normal. 14. There is severe global hypokinesis of LV . 15. Overall left ventricular systolic function is severely impaired with, an EF < 20%. 16. The right ventricle is normal in size and function. 17. The left atrium is normal in size. 18. The right atrium is normal in size. 19. Aortic valve is trileaflet and is moderately thickened. DISABILITY SERVICES COORDINATOR: Khushboo Pitts RDCS
[2016-12-20] MEDS: ALBUTEROL NEBULIZED 2.5 MG/3 ML INHALATION SCH (12:49)
[2016-12-20 15:27] VITALS: PULSE 90
--- NOTE | 2016-12-20 15:47 | P.PN ---
Subjective This is a very pleasant 66-year-old female patient who follows with Dr. Arechiga as her primary care physician. She has a history of breast cancer of the right breast back in 1993 where she had undergone mastectomy followed by chemo radiation, she was also tested positive for the BRCA gene and had an elective left mastectomy as well. She is noted to have a right lung nodule that was positive for lymphoma which was removed at [facility]. Following that she had 4 chemotherapy treatments. She also has a history of chronic bronchial asthma, coronary artery disease, gastroesophageal reflux disease, hypertension, hypothyroidism. In September 2016 she had suffered a non-ST segment elevation myocardial infarction with subsequent coronary artery bypass grafting times one with a BRAR to the LAD in October 2016. Her postoperative echocardiogram continued to reveal severe left ventricular systolic dysfunction with an ejection fraction 25-30%. The plan was for an AICD placement by Dr. Garcia. She was hospitalized again in November 2016 for hypotension and her medications were adjusted. She had seen Dr. Arechiga in our office yesterday 12/17/2016 for complaints of significant dyspnea on minimal exertion. She also had complaints of orthopnea. Nonproductive cough. No chills or night sweats. She also is having complaints of palpitations and near syncopal episodes. She was referred to the emergency room for the same. A CT angiogram was requested and there was no evidence of pulmonary embolism. There was continued cardiomegaly with a new small right pleural effusion and mild diffuse alveolar edema. She is being treated for an acute exacerbation of systolic congestive heart failure. She is seen today in consultation. She is currently sitting up in bed. She is awake and alert in no acute distress. She states she is breathing about the same today as compared to yesterday. She denies any worsening shortness of breath, cough or congestion. No hemoptysis. No leukocytosis. She is afebrile. He is maintaining O2 saturations in the upper 90s on room air. No chest pain, palpitations lightheadedness or dizziness. Her troponins were negative 3. Her proBNP is 6160. The patient was seen and evaluated The patient was seen and evaluated again today 12/19/2016 on the regular medical floor. She is awake and alert in no acute distress. She states she is breathing much easier today as compared to yesterday and the day before. She denies any worsening shortness of breath, cough or congestion. She is anxious to go home. She remains in a negative balance. She is maintaining good O2 saturations in the upper 90s on room air. She is afebrile. The patient was seen again today 12/20/2016 on the regular medical floor. She is awake and alert in no acute distress. She is breathing much easier today. She is maintaining good O2 saturations in the high 90s on room air. She is anxious to go home. The plan is for outpatient EP studies and Bi-AICD placement. Objective - Vital Signs Vital signs: Vital Signs Temp 96.4 F L 12/20/16 07:00 Pulse 90 12/20/16 13:05 Resp 20 12/20/16 07:00 BP 115/54 12/20/16 07:00 Pulse Ox 98 12/20/16 07:00 Intake & Output 12/19/16 12/20/16 12/20/16 18:59 06:59 18:59 Output Total 400 550 Balance -400 -550 Weight 73.5 kg Output: Urine 400 550 Other: Voiding Method Toilet # Voids 3 - Exam GENERAL EXAM: Alert, comfortable in no apparent distress. HEAD: Normocephalic. EYES: Normal reaction of pupils, equal size. NOSE: Clear with pink turbinates. THROAT: No erythema or exudates. NECK: No masses, no JVD. CHEST: No chest wall deformity. LUNGS: Equal air entry with crackles in the posterior bases. CVS: S1 and S2 normal with audible murmur, regular rhythm. ABDOMEN: No hepatosplenomegaly, normal bowel sounds, no guarding or rigidity. SPINE: No scoliosis or deformity SKIN: No rashes CENTRAL NERVOUS SYSTEM: No focal deficits, tone is normal in all 4 extremities. Extremities: There is trace peripheral edema. No clubbing, no cyanosis. Peripheral pulses are intact. - Labs CBC & Chem 7: 12/20/16 09:20 12/20/16 09:20 Labs: Abnormal Lab Results - Last 24 Hours (Table) 12/20/16 12/20/16 Range/Units 09:20 09:20 MCHC 30.9 L (31.0-37.0) g/dL RDW 16.9 H (11.5-15.5) % Chloride 97 L (98-107) mmol/L BUN 20 H (7-17) mg/dL Creatinine 1.14 H (0.52-1.04) mg/dL Glucose 185 H (74-99) mg/dL Assessment and Plan Plan: Impression: #1 Acute exacerbation of chronic systolic congestive heart failure with severely impaired left ventricular systolic function with estimated ejection fraction 25-30%. #2 Dyspnea secondary to above with new right pleural effusion and mild diffuse alveolar edema. #3 Severe ischemic cardiomyopathy. #4 Coronary artery disease with previous coronary artery bypass grafting 1 with a BRAR to the LAD in October 2016. #5 Non-ST segment elevation myocardial infarction in September 2016. #6 Chronic cough secondary to radiation pneumonitis. #7 Chronic bronchial asthma currently inactive and stable. #8 Hypertension. #9 Hypothyroidism. #10 History of breast cancer status post mastectomy and chemo/radiation. 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 Plan: The patient was seen and evaluated by Dr. Santa. She is cleared for discharge from the pulmonary standpoint. The plan is for about Bi-V AICD to be placed and scheduled from the outpatient setting. She'll follow-up with Dr. Arechiga in our office in 1 week. She is encouraged however to call sooner with any recurrence of symptoms or other questions or concerns.
--- NOTE | 2016-12-21 11:00 | DS ---
DATE OF ADMISSION: 12/17/2016 DATE OF DISCHARGE: 12/20/2016 FINAL DIAGNOSES: 1. Congestive heart failure, acute exacerbation, with acute on chronic systolic dysfunction, ejection fraction less than 20%. 2. Pulmonary embolism ruled out. 3. Coronary artery disease, coronary artery bypass grafting. 4. Ischemic cardiomyopathy awaiting AICD placement. 5. Anemia, normocytic, etiology unknown, possibly anemia of chronic disease. 6. Hypomagnesemia. 7. History of chronic intermittent asthma. 8. History of breast cancer, surgery and radiation. 9. History of gastroesophageal reflux disease. 10. Hypertension. 11. Hypothyroidism. 12. History of right lung nodule, possible lymphoma, status post resection and chemotherapy. 13. Bone marrow transplantation history. 14. FULL CODE. DISCHARGE DISPOSITION: The patient will be discharged in stable condition with guarded prognosis. Cleared by multiple consultants. HISTORY OF PRESENT ILLNESS: This 66-year-old woman with a past medical history of multiple medical problems admitted with shortness of breath and cough with some changes also noted. The patient was treated symptomatically. The spiral CAT scan was negative for pulmonary embolism and Dr. Santa saw the patient during the hospitalization. Care was coordinated. Cardiology also saw the patient and the care was coordinated. Patient . On exam, vitals are stable . CARDIOVASCULAR SYSTEM: S1, S2 muffled. No S3, no S4. RESPIRATORY: A few scattered rhonchi. ABDOMEN: Soft. NERVOUS SYSTEM: No focal deficits. The creatinine is 1.14, stable at this time. Recommend close outpatient follow up with Dr. Arechiga. Otherwise, glucose is 185. So the patient will be discharged in stable condition with guarded prognosis. 1. Diet is cardiac. No added salt. 2. Activity limited until followup. 3. Followup with Dr. Arechiga in 2 to 3 days. 4. Follow up with Dr. Coleman as recommended. Medications are: 1. Albuterol 2 puffs q.i.d. p.r.n. 2. Lipitor 40 mg q.h.s. 3. Plavix 75 mg p.o. daily. 4. Lanoxin 0.125 mg p.o. daily. 5. Colace 100 mg p.o. b.i.d., hold if the patient has diarrhea. 6. Lasix 40 mg p.o. daily. 7. Ativan 1 mg p.o. b.i.d. 8. Synthroid 50 mcg p.o. q.h.s. 9. Prinivil 2.5 mg q.h.s. 10. Toprol XL 25 mg p.o. b.i.d. 11. Omeprazole 40 mg p.o. daily. 12. Aldactone 25 mg p.o. daily. Follow with Cardiology for AICD placement and continued followup. CBC, BMP in [address] to [address] Arechiga and continue to followup. MTDD
== END 2016-12-20 14:19 | disposition home or self-care (01) | DRG 292 ==
LOC: EC 14:35 → 4MS4W 16:26
PROVIDERS: ADMIT Hospitalist; ATTEND Hospitalist
DX: I11.0 Hypertensive heart disease with heart failure (principal); Z94.81 Bone marrow transplant status; J70.0 Acute pulmonary manifestations due to radiation; I50.23 Acute on chronic systolic (congestive) heart failure; E83.42 Hypomagnesemia; D63.8 Anemia in other chronic diseases classified elsewhere; I25.10 Atherosclerotic heart disease of native coronary artery without angina pectoris; I25.5 Ischemic cardiomyopathy; J45.909 Unspecified asthma, uncomplicated; Z95.1 Presence of aortocoronary bypass graft; Z90.10 Acquired absence of unspecified breast and nipple; Z85.3 Personal history of malignant neoplasm of breast; K21.9 Gastro-esophageal reflux disease without esophagitis; E03.9 Hypothyroidism, unspecified; I25.2 Old myocardial infarction; Z85.72 Personal history of non-Hodgkin lymphomas; I44.7 Left bundle-branch block, unspecified; Z90.710 Acquired absence of both cervix and uterus; Z90.49 Acquired absence of other specified parts of digestive tract; Z79.82 Long term (current) use of aspirin; Z79.02 Long term (current) use of antithrombotics/antiplatelets; Z79.899 Other long term (current) drug therapy; Y84.2 Radiological procedure and radiotherapy as the cause of abnormal reaction of the patient, or of later complication, without mention of misadventure at the time of the procedure
CPT/HCPCS: 36415; 71020; 71275; 80048; 80053; 80061; 81003; 82550; 82553; 83735; 83880; 84484; 85025; 85379; 85610; 85730; 87502; 93005; 93306; 94640; 94760; 99214; 99285

== ENCOUNTER 2016-12-31 13:18 | Day surgery (SDC) | payer MEDICARE, BC ==
[2016-12-28 08:42] VITALS: BMI 27.4
[~2016-12-31 13:18] MED LIST: HYDROmorphone 1 MG/ML 1 ML SYRINGE IVP PRN; MIDAZOLAM 2 MG/2 ML VIAL IV PRN; ceFAZolin 1,000 MG in SODIUM CHLORIDE 0.9% IRRIGATIO 250 ML IRRIGATION ONE; ceFAZolin 2 GM in SODIUM CHLORIDE 0.9% 100 ML IVPB ONE
[2016-12-31] MEDS: SODIUM CHLORIDE 0.9% 1,000 ML IV SCH (13:56)
[2016-12-31] MEDS ORDERED: MIDAZOLAM 2 MG/2 ML VIAL ONE (16:14)
[2016-12-31] MEDS ORDERED: diphenhydrAMINE 50 MG/ML 1 ML VIAL ONE (16:14)
[2016-12-31] MEDS ORDERED: fentaNYL (PF) 50 MCG/ML 2 ML AMP ONE (16:14)
[2016-12-31] MEDS ORDERED: PROPOFOL 10 MG/ML 20 ML VIAL IV ONE (16:14)
[2016-12-31] MEDS ORDERED: IODIXANOL 270 MG/ML 50 ML ML IV ONE ×2 (16:22→17:30)
[2016-12-31] MEDS ORDERED: LIDOCAINE 1% (PF) 10MG/ML VIAL SQ ONE (16:42)
[2016-12-31] MEDS ORDERED: ACETAMINOPHEN IV (For NPO) 1,000 MG in EMPTY BAG 1 BAG IVPB ONE (18:55)
--- NOTE | 2016-12-31 19:31 | PCN ---
DATE OF PROCEDURE: 66-year-old female with ischemic cardiomyopathy, severe left ventricular dysfunction, ejection fraction of 20%, recurrent heart failure symptoms class III heart failure with chronic systolic dysfunction despite appropriate medical treatment revascularization. Greater than 3 months post revascularization and continues to have heart failure symptoms. Left bundle branch block pattern with a QRS width of 150 ms. The patient was brought in for biventricular ICD for heart failure management as well as a prevention of sudden cardiac . Patient was brought to the EP lab in a fasting state. Written informed consent was obtained prior to the procedure. The left shoulder area was prepped and draped as per protocol. 1% Lidocaine was used for local anesthesia. The left pectoral area was prepped and draped as per protocol. 1% Lidocaine was used for local anesthesia. A 4 cm incision was made parallel to the deltopectoral groove about 1.5 cm medial to it. The incision was carried down to the level of the pectoralis muscle. A subfascial pocket was made. Hemostasis was assured. The left axillary vein was accessed at 3 separate points under fluoroscopy. All 3 accesses were obtained at the level of the second rib. Using an appropriate-sized introducer sheaths, 3 leads were positioned. Atrial lead was [employer] medical model #2088 TC, 52 cm in length and serial #[id number]. P waves 3.6 mV, pacing impedance 481 ohms. Pacing threshold 0.8 v at 0.5 ms, 10 V test was negative. The RV lead was a single coil [employer] medical ICD lead, 7122Q 58 cm in length and serial #[id number]. R waves 10 mV, pacing impedance 575 ohms. Pacing threshold 0.5 v at 0.5 ms, 10 V test was negative. The LV lead was placed in the anterior vein. The coronary sinus access was difficult and used deflectable CS catheter to engage the coronary sinus. Once engaged, the lead was positioned expeditiously in the anterior/anterolateral vein, R waves 5.5 mV, pacing impedance 929 ohms. Pacing threshold 0.4 v at 0.5 ms, 10 V test was negative. The leads were secured to the underlying pectoralis fascia using 2 nonabsorbable sutures each. The pocket was irrigated with antibiotic solution. The lead was connected to the generator (a [employer] medical CD 3369-40 Q, serial #[id number]) The lead and the generator were then placed in the subfascial pocket. The wound was closed in 3 layers and dressed per protocol and the device was sutured to the muscle. The wound was then closed in 3 layers and dressed per protocol. The device was then programmed to ( )programming AV delay 120 ms and LV RV off set off 40 ms. Please note that this was somewhat diminutive vein and the distal portal, N2 and N3 were in the vein. Whereas the proximal pole was at the junction of the main body and the vein. However, the thresholds in the distal bolts were excellent. Patient tolerated the procedure well without any acute complications. PLAN: Continue cardiac and heart failure medications. Intravenous antibiotics overnight and then discharged home tomorrow.
--- NOTE | 2016-12-31 19:33 | LTR ---
December 31, 2016 RE: Perla Kim Dear Dr. Arechiga: I had the pleasure of seeing Perla Kim in electrophysiology follow-up. Perla underwent biventricular ICD implantation for recurrent heart failure, despite appropriate revascularization for triple vessel coronary artery disease as well as appropriate medical treatment. She has an underlying QRS width of 150 ms with severe left ventricular dysfunction of about 20% by her most recent echo. Hopefully, this will help for heart failure symptoms. Thank you for entrusting me with the care of your patient. Warm regards. Sincerely, REAGAN LOCKHART MD
[2016-12-31] MEDS: LACTATED RINGERS 1,000 ML IV SCH (20:09)
[2016-12-31] MEDS ORDERED: LEVOTHYROXINE 50 MCG TAB PO SCH (21:00)
[2016-12-31] MEDS ORDERED: METOPROLOL SUCCINATE (ER) 25 MG TAB.ER.24H PO SCH (21:00)
[2016-12-31] MEDS ORDERED: ATORVASTATIN 40 MG TAB PO SCH (21:00)
[2016-12-31] MEDS ORDERED: LISINOPRIL 2.5 MG TAB PO SCH (21:00)
[2016-12-31] MEDS: ceFAZolin 2 GM in SODIUM CHLORIDE 0.9% 100 ML IVPB SCH (21:55)
[2016-12-31] MEDS ORDERED: ACETAMINOPHEN TAB 325 MG TAB PO PRN (23:59)
[2017-01-01] MEDS: HYDROcodone/APAP 5-325MG 1 EACH TAB PO PRN ×2 (02:40→09:03)
[2017-01-01] MEDS: ceFAZolin 2 GM in SODIUM CHLORIDE 0.9% 100 ML IVPB SCH ×3 (03:58→15:09)
[2017-01-01] MEDS: LACTATED RINGERS 1,000 ML IV SCH (06:32)
[2017-01-01] MEDS: SODIUM CHLORIDE 0.9% 1,000 ML IV SCH (06:35)
[2017-01-01 08:40] VITALS: RESP 18
[2017-01-01] MEDS ORDERED: FUROSEMIDE 40 MG TAB PO SCH (09:00)
[2017-01-01] MEDS ORDERED: ASPIRIN 325 MG TAB PO SCH (09:00)
[2017-01-01] MEDS ORDERED: CLOPIDOGREL 75 MG TAB PO SCH (09:00)
[2017-01-01] MEDS ORDERED: SPIRONOLACTONE 25 MG TAB PO SCH (09:00)
[2017-01-01] MEDS ORDERED: DIGOXIN 125 MCG TAB PO SCH (09:00)
--- NOTE | 2017-01-01 10:06 | XR ---
EXAMINATION TYPE: XR chest 2V DATE OF EXAM: 01/01/2017 6:25 AM HISTORY: Lead placement check. REFERENCE: Previous study dated 12/17/2016. FINDINGS: There has been a midline sternotomy. There has been interval placement of a multilead pacing device. One lead overlies the right atrium. O ne lead overlies the right ventricle. A third lead also appears to overlie the right ventricle. The heart is enlarged. The lungs are clear. No pneumothorax is seen. There is prominence of the right main pulmonary artery. IMPRESSION: 1. SATISFACTORY PACEMAKER PLACEMENT. 2. CARDIOMEGALY. 3. I SUSPECT SOME DEGREE OF PULMONARY ARTERY HYPERTENSION.
--- NOTE | 2017-01-01 14:29 | DS ---
DATE OF ADMISSION: 12/31/2016 DATE OF DISCHARGE: Perla Felder is a 66-year-old female with clinical cardiomyopathy with severe heart failure, recurrent heart admission, underlying left bundle branch block, 150 ms ( ) Bi-V ICD. Bi-V ICD is functioning normally. Her blood pressure medications were held yesterday. She has had this issue in the past where her blood pressure was quite low, but she is asymptomatic at this time, ambulating in the hallways. Head and neck examination is normal. No JVD. No thyromegaly. No carotid bruits. Heart sounds S1, S2 are normal. Breath sounds are normal. ICD site has healed well. The device was interrogated, it is functioning normally. A chest x-ray does not show any pneumothorax. PLAN: Discharge home today. I will reduce the dose of Toprol XL to 25 mg once a day. Previously she was taking b.i.d. Will also reduce the dose of spironolactone to 12.5 mg p.o. daily, which is half her usual dose. Hopefully her blood pressure is able to tolerate this better. She will follow with Dr. Coleman in the next 2 to 3 weeks. She will also see us in the [facility] in 5 days.
[2017-01-01 16:54] VITALS: BP 122/56; PULSE 96; TEMP 97.9
== END 2017-01-01 17:55 | disposition home or self-care (01) ==
LOC: CATHEP 13:18 → 3OBS 18:33 → CATHEP 01-01 17:55
PROVIDERS: ATTEND Internal Medicine Clinical Cardiac Electrophysiology
DX: I11.0 Hypertensive heart disease with heart failure (principal); I50.22 Chronic systolic (congestive) heart failure; Z00.6 Encounter for examination for normal comparison and control in clinical research program; I44.7 Left bundle-branch block, unspecified; I25.5 Ischemic cardiomyopathy; I25.10 Atherosclerotic heart disease of native coronary artery without angina pectoris; Z95.1 Presence of aortocoronary bypass graft; E78.2 Mixed hyperlipidemia; I25.2 Old myocardial infarction; Z82.49 Family history of ischemic heart disease and other diseases of the circulatory system; K21.9 Gastro-esophageal reflux disease without esophagitis; Z85.3 Personal history of malignant neoplasm of breast; Z90.13 Acquired absence of bilateral breasts and nipples; Z79.02 Long term (current) use of antithrombotics/antiplatelets; Z79.82 Long term (current) use of aspirin; Z79.899 Other long term (current) drug therapy; Z91.048 Other nonmedicinal substance allergy status
CPT/HCPCS: 33225; 33249; 71020; C1769 ×4; C1892 ×2; C1730 ×2; C1898; C1777; C1900; C1882; J2250; J1200; Q9966; J0690 ×3; J3010; J2001; J0131; J2704

== ENCOUNTER 2017-01-23 17:38 | Inpatient (IN) | payer MEDICARE, BC ==
--- NOTE | 2017-01-23 17:55 | ED ---
General Adult HPI - General Chief complaint: Neuro Symptoms/Deficit Stated complaint: Seizure/CVA Time Seen by Provider: 01/23/17 17:44 Source: patient, EMS, RN notes reviewed Mode of arrival: EMS Limitations: altered mental status - History of Present Illness Initial comments: Patient is a pleasant 67-year-old female presenting to the emergency department after possible seizure. EMS was called for possible seizure activity. When they arrived patient was not seizing however did have some abnormal activity and was altered lying on the ground. Patient does not recall the episode. Patient states she feels fine and has no complaints however does admit she doesn 't recall the episode. No pain. No headache. Patient does not feel weak. No known history of similar symptoms previously. - Related Data Home Medications Medication Instructions Recorded Confirmed Albuterol Inhaler [Ventolin Hfa 2 puff INHALATION RT-QID PRN 12/17/16 01/23/17 Inhaler] Omeprazole 40 mg PO DAILY 12/17/16 01/23/17 Lisinopril [Zestril] 1.25 mg PO HS 01/23/17 01/23/17 Metoprolol Tartrate [Lopressor] 50 mg PO DAILY 01/23/17 01/23/17 Previous Rx's Medication Instructions Recorded LORazepam [Ativan] 1 mg PO BID #8 tab 12/17/16 Docusate [Colace] 100 mg PO BID #30 cap 12/20/16 Acetaminophen Tab [Tylenol] 650 mg PO Q6HR PRN #0 tab 01/01/17 Aspirin 325 mg PO DAILY tab 01/01/17 Atorvastatin [Lipitor] 40 mg PO HS tab 01/01/17 Clopidogrel [Plavix] 75 mg PO DAILY tab 01/01/17 Digoxin [Lanoxin] 125 mcg PO DAILY tab 01/01/17 Furosemide [Lasix] 40 mg PO DAILY tab 01/01/17 HYDROcodone/APAP 5-325MG [[place] 1 each PO Q4HR PRN #0 tab 01/01/17 5-325] Levothyroxine Sodium [Synthroid] 50 mcg PO HS tab 01/01/17 Spironolactone [Aldactone] 12.5 mg PO DAILY #30 tablet 01/01/17 Allergies Allergy/AdvReac Type Severity Reaction Status Date / Time nickel Allergy Rash/Hives Verified 01/23/17 18:35 Review of Systems ROS Statement: Those systems with pertinent positive or pertinent negative responses have been documented in the HPI. ROS Other: All systems not noted in ROS Statement are negative. Constitutional: Denies: fever Eyes: Denies: eye pain ENT: Denies: ear pain Respiratory: Denies: cough Cardiovascular: Denies: chest pain Endocrine: Denies: fatigue Gastrointestinal: Denies: abdominal pain Genitourinary: Denies: dysuria Musculoskeletal: Denies: back pain Skin: Denies: rash Neurological: Denies: headache, weakness, paresthesias Past Medical History Past Medical History: Asthma, Coronary Artery Disease (CAD), Cancer, GERD/Reflux , Hypertension, Myocardial Infarction ([place]), Thyroid Disorder Additional Past Medical History / Comment(s): NSTEMI in September 2016 with subsequent coronary artery bypass grafting x 1, BRAR to the LAD, in October 2016. Severe ischemic cardiomyopathy with estimated ejection fraction 25-30%. Pending AICD placement. Admitted for hypotension in 11-13-16. Remote history of right Breast cancer stage 4(1993) had mastectomy and radiation/chemo,had genetic testing done,was poisitve for BRCA GENE so had elective lt masectomy done. Right lung nodule cancerous/lymphoma was removed at [facility] and post operative received 4 chemo tx) Last Myocardial Infarction Date:: History of Any Multi-Drug Resistant Organisms: None Reported Past Surgical History: Appendectomy, Breast Surgery, Cholecystectomy, Coronary Bypass/CABG, Heart Catheterization, Hysterectomy, Tubal Ligation Additional Past Surgical History / Comment(s): LT BREAST WAS POSTIVE FOR CANCER STAGE 4 cancer-had masectomy. 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 lt cataract removed, 10-07-16 CABG( 1 VESSEL), LT INTERNAL MAMMARY ARTERY TO LEFT ANT DESCENDING ARTERY. EVAN OOPHERECTOMY(PROPHYLATIC), LUNG NODULE REMOVED(CANCEROUS-lymhoma- AND RECEIVED SEVERAL CHEMO tx, several venous access devices since removed. Past Anesthesia/Blood Transfusion Reactions: No Reported Reaction Additional Past Anesthesia/Blood Transfusion Reaction / Comment(s): takes a bit to wake up after aa Past Psychological History: No Psychological Hx Reported Additional Psychological History / Comment(s): pt lives with spouse,is independant. owns [employer] in [place]. 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 no pets. no home care services. has a shower chair and "toilet rise" and a walker if needed. Smoking Status: Never smoker Past Alcohol Use History: None Reported Past Drug Use History: None Reported - Past Family History Mother Family Medical History: Diabetes Mellitus Additional Family Medical History / Comment(s): heart valve replacment Father Family Medical History: Cancer Additional Family Medical History / Comment(s): lung cancer Sister(s) Family Medical History: Cancer Additional Family Medical History / Comment(s): breast cancer General Exam Limitations: no limitations General appearance: alert, in no apparent distress Head exam: Present: atraumatic Eye exam: Present: normal appearance, PERRL, EOMI. Absent: nystagmus ENT exam: Present: normal oropharynx Neck exam: Present: normal inspection Respiratory exam: Present: normal lung sounds bilaterally, other (Bilateral mastectomy) Cardiovascular Exam: Present: normal rhythm, tachycardia, systolic murmur Expanded Peripheral pulses: 2+: Dorsalis Pedis (R), Dorsalis Pedis (L) GI/Abdominal exam: Present: soft. Absent: tenderness Extremities exam: Present: normal inspection. Absent: pedal edema, calf tenderness Neurological exam: Present: alert Psychiatric exam: Present: normal affect, normal mood Skin exam: Absent: rash Course Vital Signs 01/23/17 01/23/17 17:46 17:51 Temperature 96.9 F L Pulse Rate 124 H 114 H Respiratory 18 18 Rate Blood Pressure 128/87 128/87 O2 Sat by Pulse 96 95 Oximetry EKG Findings - EKG Comments: EKG Findings:: Wide-complex regular rhythm at 116. GA 150. QRS 146. QT 360. QTC 500. Right axis. Wide complex QRS complex. Nonspecific ST-T Medical Decision Making - Medical Decision Making Patient reevaluated and resting comfortably in bed. Patient is symptom-free. Patient and family were updated on results and plan. Case was discussed in detail with Dr. Mayen, covering for Dr. Arechiga. He recommends admission to Dr. Oates who has previously seen this patient. Consults will be placed for cardiology and neurology. - Lab Data Result diagrams: 01/23/17 17:45 01/23/17 17:45 Lab Results 01/23/17 01/23/17 01/23/17 Range/Units 17:45 17:45 17:45 WBC 15.5 H (3.8-10.6) k/uL RBC 3.86 (3.80-5.40) m/uL Hgb 11.3 L (11.4-16.0) gm/dL Hct 34.1 (34.0-46.0) % MCV 88.4 (80.0-100.0) fL MCH 29.2 (25.0-35.0) pg MCHC 33.0 (31.0-37.0) g/dL RDW 17.0 H (11.5-15.5) % Plt Count 277 (150-450) k/uL Neutrophils % (Manual) 38.0 % Lymphocytes % (Manual) 47.0 % Monocytes % (Manual) 12.0 % Eosinophils % (Manual) 3.0 % Neutrophils # (Manual) 5.9 (1.3-7.7) k/uL Lymphocytes # (Manual) 7.3 H (1.0-4.8) k/uL Monocytes # (Manual) 1.9 H (0-1.0) k/uL Eosinophils # (Manual) 0.5 (0-0.7) k/uL Nucleated RBCs 0 (0-0) /100 WBC Manual Slide Review Performed Hypochromasia Slight Poikilocytosis Slight Anisocytosis Slight Ovalocytes Present PT (9.0-12.0) sec INR (<1.1) APTT (22.0-30.0) sec Sodium 143 (137-145) mmol/L Potassium 3.0 L* (3.5-5.1) mmol/L Chloride 98 (98-107) mmol/L Carbon Dioxide 21 L (22-30) mmol/L Anion Gap 24 mmol/L BUN 16 (7-17) mg/dL Creatinine 1.21 H (0.52-1.04) mg/dL Est GFR (MDRD) Af Amer 54 (>60 ml/min/1.73 sqM) Est GFR (MDRD) Non-Af 44 (>60 ml/min/1.73 sqM) Glucose 133 H (74-99) mg/dL Calcium 8.2 L (8.4-10.2) mg/dL Magnesium 1.2 L (1.6-2.3) mg/dL Total Bilirubin 0.8 (0.2-1.3) mg/dL AST 30 (14-36) U/L ALT 21 (9-52) U/L Alkaline Phosphatase 71 (38-126) U/L Total Creatine Kinase 129 (30-135) U/L CK-MB (CK-2) 1.7 (0.0-2.4) ng/mL CK-MB (CK-2) Rel Index 1.3 Troponin I 0.017 (0.000-0.034) ng/mL Total Protein 7.5 (6.3-8.2) g/dL Albumin 4.4 (3.5-5.0) g/dL 01/23/17 Range/Units 17:45 WBC (3.8-10.6) k/uL RBC (3.80-5.40) m/uL Hgb (11.4-16.0) gm/dL Hct (34.0-46.0) % MCV (80.0-100.0) fL MCH (25.0-35.0) pg MCHC (31.0-37.0) g/dL RDW (11.5-15.5) % Plt Count (150-450) k/uL Neutrophils % (Manual) % Lymphocytes % (Manual) % Monocytes % (Manual) % Eosinophils % (Manual) % Neutrophils # (Manual) (1.3-7.7) k/uL Lymphocytes # (Manual) (1.0-4.8) k/uL Monocytes # (Manual) (0-1.0) k/uL Eosinophils # (Manual) (0-0.7) k/uL Nucleated RBCs (0-0) /100 WBC Manual Slide Review Hypochromasia Poikilocytosis Anisocytosis Ovalocytes PT 11.8 (9.0-12.0) sec INR 1.2 (<1.1) APTT 19.8 L (22.0-30.0) sec Sodium (137-145) mmol/L Potassium (3.5-5.1) mmol/L Chloride (98-107) mmol/L Carbon Dioxide (22-30) mmol/L Anion Gap mmol/L BUN (7-17) mg/dL Creatinine (0.52-1.04) mg/dL Est GFR (MDRD) Af Amer (>60 ml/min/1.73 sqM) Est GFR (MDRD) Non-Af (>60 ml/min/1.73 sqM) Glucose (74-99) mg/dL Calcium (8.4-10.2) mg/dL Magnesium (1.6-2.3) mg/dL Total Bilirubin (0.2-1.3) mg/dL AST (14-36) U/L ALT (9-52) U/L Alkaline Phosphatase (38-126) U/L Total Creatine Kinase (30-135) U/L CK-MB (CK-2) (0.0-2.4) ng/mL CK-MB (CK-2) Rel Index Troponin I (0.000-0.034) ng/mL Total Protein (6.3-8.2) g/dL Albumin (3.5-5.0) g/dL - Radiology Data Radiology results: report reviewed (Computed tomography scan the brain shows no acute process.), image reviewed (Chest x-ray shows no acute process. Postoperative changes.) Disposition Clinical Impression: Syncope Disposition: ADMITTED IP TO THIS [facility] Condition: Serious
[2017-01-23 18:18] LABS: Calcium 8.2 mg/dL (8.4-10.2); Magnesium 1.2 mg/dL (1.6-2.3); Total Bilirubin 0.8 mg/dL (0.2-1.3); Total Protein 7.5 g/dL (6.3-8.2)
[2017-01-23] MEDS ORDERED: METOCLOPRAMIDE 5 MG/ML 2 ML VIAL IVP STA (18:22)
[2017-01-23 18:27] LABS: Anisocytosis Slight; Aty Lym Flag Slight; CH 28.2; HCT 34.1 % (34.0-46.0); HDW 3.47; HGB 11.3 gm/dL (11.4-16.0); Hypochromasia Slight; MCH 29.2 pg (25.0-35.0); MCV 88.4 fL (80.0-100.0); Mean Platelet Volume 7.9; Poikilocytosis Slight; RBC 3.86 m/uL (3.80-5.40); WBC 15.5 k/uL (3.8-10.6); WBC (Perox) 14.48
--- NOTE | 2017-01-23 18:31 | CT ---
EXAMINATION TYPE: CT brain wo con DATE OF EXAM: 01/23/2017 6:16 PM COMPARISON: 09/20/2015 HISTORY: syncope, possible seizure, nausea with vomitting CT DLP: 1121 mGycm Automated exposure control for dose reduction was used. FINDINGS: Ventricles have normal size. There is no mass effect or midline shift. There is no sign of intracrani al hemorrhage. There is mild cortical atrophy. There is mild hypodensity in the white matter of the p osterior parietal lobes and posterior temporal lobes. The calvarium is intact. IMPRESSION: There is evidence for mild chronic small vessel ischemia. Mild atrophy. No acute intracranial abnorma lity. No change.
[2017-01-23 18:32] LABS: INR 1.2 (<1.1); Prothrombin Time 11.8 sec (9.0-12.0)
[2017-01-23 18:33] LABS: Partial Thromboplastin Time 19.8 sec (22.0-30.0)
[2017-01-23] MEDS: POTASSIUM CHLORIDE 10 MEQ, LIDOCAINE 2% INJ 10 MG in SODIUM CHLORIDE 0.9% 100 ML IVPB SCH ×2 (18:37→21:00)
[2017-01-23 18:38] LABS: Creatine Kinase MB 1.7 ng/mL (0.0-2.4); Troponin I 0.017 ng/mL (0.000-0.034)
[2017-01-23 18:40] LABS: Add Differential Manual Differential
[2017-01-23 18:43] LABS: Manual Review Performed; Nucleated Red Blood Cells 0 /100 WBC (0-0); Ovalocytes Present; Total Cells Counted 100
--- NOTE | 2017-01-23 18:48 | XR ---
EXAMINATION TYPE: XR chest 2V DATE OF EXAM: 01/23/2017 6:25 PM COMPARISON: 01/01/2017 HISTORY: Nausea TECHNIQUE: Frontal and lateral views of the chest are obtained. FINDINGS: There is no heart failure nor confluent pneumonic infiltrate. Costophrenic angles are laura r. There are no hilar masses. There are sternal wires. There is left axillary pacemaker with the lead tips in the right ventricle. There are chest leads. Bony thorax is intact. IMPRESSION: No active cardiopulmonary disease. No change. There is clearing of pleural fluid compare d to 11/13/2016.
[2017-01-23] MEDS: MAGNESIUM OXIDE 400 MG TAB PO STA ×3 (19:28→19:37)
[2017-01-23] MEDS: MAGNESIUM SULFATE-D5W PMX 1 GM in DEXTROSE/WATER 1 100ML.BAG IVPB SCH ×2 (19:28→21:00)
[2017-01-23] MEDS: POTASSIUM CHLORIDE ER 20 MEQ TAB.ER PO STA ×3 (19:28→19:37)
[2017-01-23] MEDS: SODIUM CHLORIDE 0.9% 1,000 ML IV SCH (19:34)
--- NOTE | 2017-01-24 11:06 | ECHOF ---
Referral Reason:Thrombus MEASUREMENTS -------- HEIGHT: 162.6 cm WEIGHT: 75.7 kg BP: 108/53 IVSd: 1.1 cm (0.6 - 1.1) LVIDd: 4.6 cm (3.9 - 5.3) LVPWd: 1.2 cm (0.6 - 1.1) IVSs: 1.1 cm LVIDs: 4.2 cm LVPWs: 1.4 cm Ao Diam: 2.6 cm (2.0 - 3.7) AV Cusp: 1.4 cm (1.5 - 2.6) LA Diam: 4.4 cm (2.7 - 3.8) MV EXCURSION: 13.883 mm (> 18.000) MV EF SLOPE: 66 mm/s (70 - 150) EPSS: 1.6 cm MV E Blaine: 0.89 m/s MV DecT: 99 ms MV A Blaine: 0.95 m/s MV E/A Ratio: 0.93 AV maxP.26 mmHg AV meanP.97 mmHg AR PHT: 174 ms RAP: 5.00 mmHg RVSP: 28.51 mmHg FINDINGS -------- Sinus rhythm. Pacerwire seen in RV and RA. AICD This was a technically difficult study with suboptimal views. Pt had mastectomy There is borderline concentric left ventricular hypertrophy. There is severe global hypokinesis of LV . Overall left ventricular systolic function is severely impaired with, an EF between 20 - 25 %. The right ventricle is normal in size and function. The left atrium is mildly dilated. The right atrium is normal in size. Aortic valve is trileaflet and is moderately thickened. There is [id number] aortic regurgitation. There is mild aortic stenosis present. Peak/mean gradient across the Aortic Valve is 23.26mmHg / 16.97mmHg. The mitral valve leaflets are mildly thickened. There is trace mitral regurgitation. Mild tricuspid regurgitation present. The right ventricular systolic pressure, as measured by Doppler, is 28.51mmHg. Pulmonic valve appears structurally normal. The aortic root size is normal. The pericardium is normal. CONCLUSIONS -------- 1. Sinus rhythm. 2. The left atrium is mildly dilated. 3. The right atrium is normal in size. 4. Aortic valve is trileaflet and is moderately thickened. 5. There is [id number] aortic regurgitation. 6. There is mild aortic stenosis present. 7. Peak/mean gradient across the Aortic Valve is 23.26mmHg / 16.97mmHg. 8. The mitral valve leaflets are mildly thickened. 9. There is trace mitral regurgitation. 10. Mild tricuspid regurgitation present. 11. The right ventricular systolic pressure, as measured by Doppler, is 28.51mmHg. 12. Pacerwire seen in RV and RA. 13. Pulmonic valve appears structurally normal. 14. The aortic root size is normal. 15. The pericardium is normal. 16. AICD 17. This was a technically difficult study with suboptimal views. 18. Pt had mastectomy 19. There is borderline concentric left ventricular hypertrophy. 20. There is severe global hypokinesis of LV . 21. Overall left ventricular systolic function is severely impaired with, an EF between 20 - 25 %. 22. The right ventricle is normal in size and function. GOVERNMENT PROFESSOR: Debby Rodriguez RDCS
--- NOTE | 2017-01-24 11:35 | P.CRDCN ---
History of Present Illness Consult date: 01/24/17 Requesting physician: Lito Oates Consult reason: sycope Chief complaint: Syncope History of present illness: This is a 67-year-old female who follows with Dr. Coleman in the office. She has a known history of coronary artery disease with recent coronary artery bypass grafting surgery in October of this year. Patient also has ischemic cardiomyopathy, she was discharged after surgery with a LifeVest, recently underwent implantation of a bi-V AICD by Dr. Banegas on December 31. According to the patient, she's been doing quite well at home. Yesterday she went to [employer] shopping with her , she was walking through the [employer] in the next thing she recalls is waking up in the EMS. Patient states she had no dizziness, no lightheadedness, no palpitations, no chest discomfort earlier that day or at the time of the syncope. She had no warning prior to passing out. Her initial EKG on presentation here showed atrial sensed V paced rhythm. Repeat EKG shows a sinus tachycardia with T-wave inversion in the inferior anterior lateral leads. Blood pressure on arrival here 128/80 with a heart rate of 120, afebrile, 96% on room air. Blood cell count on arrival 15.5, hemoglobin 11.3, potassium 3.0, BUN 16, creatinine 1.2, magnesium level I.2. Troponins 0.017, 0.095, 0.114. CT of the brain revealed mild evidence for chronic small vessel ischemia. No acute intracranial abnormality noted. Echocardiogram with Doppler study was performed which revealed an ejection fraction of 20-25%. Mild to moderate aortic regurgitation. Chest x-ray did not reveal any active cardiopulmonary disease. At the time of my examination this morning, patient feels well, denies any chest pain, no difficulty in breathing. Past Medical History Past Medical History: Asthma, Coronary Artery Disease (CAD), Cancer, GERD/Reflux , Hypertension, Myocardial Infarction (AL), Thyroid Disorder Additional Past Medical History / Comment(s): NSTEMI in September 2016 with subsequent coronary artery bypass grafting x 1, BRAR to the LAD, in October 2016. Severe ischemic cardiomyopathy with estimated ejection fraction 25-30%. Pending AICD placement. Admitted for hypotension in 11-13-16. Remote history of right Breast cancer stage 4(1993) had mastectomy and radiation/chemo,had genetic testing done,was poisitve for BRCA GENE so had elective lt masectomy done. Right lung nodule cancerous/lymphoma was removed at [facility] and post operative received 4 chemo tx) Last Myocardial Infarction Date:: History of Any Multi-Drug Resistant Organisms: None Reported Past Surgical History: Appendectomy, Breast Surgery, Cholecystectomy, Coronary Bypass/CABG, Heart Catheterization, Hysterectomy, Tubal Ligation Additional Past Surgical History / Comment(s): LT BREAST WAS POSTIVE FOR CANCER STAGE 4 cancer-had masectomy. 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 lt cataract removed, 10-07-16 CABG( 1 VESSEL), LT INTERNAL MAMMARY ARTERY TO LEFT ANT DESCENDING ARTERY. EVAN OOPHERECTOMY(PROPHYLATIC), LUNG NODULE REMOVED(CANCEROUS-lymhoma- AND RECEIVED SEVERAL CHEMO tx, several venous access devices since removed. Past Anesthesia/Blood Transfusion Reactions: No Reported Reaction Additional Past Anesthesia/Blood Transfusion Reaction / Comment(s): takes a bit to wake up after aa Past Psychological History: No Psychological Hx Reported Additional Psychological History / Comment(s): pt lives with spouse,is independant. 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 no pets. no home care services. has a shower chair and "toilet rise" and a walker if needed. Smoking Status: Never smoker Past Alcohol Use History: None Reported Past Drug Use History: None Reported - Past Family History Mother Family Medical History: Diabetes Mellitus Additional Family Medical History / Comment(s): heart valve replacment Father Family Medical History: Cancer Additional Family Medical History / Comment(s): lung cancer Sister(s) Family Medical History: Cancer Additional Family Medical History / Comment(s): breast cancer Medications and Allergies Home Medications Medication Instructions Recorded Confirmed Type Albuterol Inhaler [Ventolin Hfa 2 puff INHALATION RT-QID PRN 12/17/16 01/23/17 History Inhaler] Omeprazole 40 mg PO DAILY 12/17/16 01/23/17 History Lisinopril [Zestril] 1.25 mg PO HS 01/23/17 01/23/17 History Metoprolol Tartrate [Lopressor] 50 mg PO DAILY 01/23/17 01/23/17 History Allergies Allergy/AdvReac Type Severity Reaction Status Date / Time nickel Allergy Rash/Hives Verified 01/23/17 18:35 Physical Exam Vitals: Vital Signs Temp Pulse Pulse Resp BP BP Pulse Ox 01/24/17 08:00 102 H 18 109/68 01/24/17 07:30 98.5 F 102 H 16 111/57 95 01/24/17 05:30 98.6 F 103 H 16 108/53 93 L 01/24/17 03:57 16 01/24/17 03:30 98.0 F 100 16 102/53 94 L 01/24/17 01:30 97.4 F L 102 H 16 103/51 96 01/23/17 23:59 97.6 F 103 H 16 122/61 96 01/23/17 22:51 97.6 F 103 H 16 122/61 96 01/23/17 22:02 98 16 117/59 98 01/23/17 21:59 97 20 107/59 98 01/23/17 20:34 104 H 16 107/59 98 01/23/17 19:37 107/59 01/23/17 19:34 108 H 20 100 Intake and Output 01/23/17 01/24/17 01/24/17 22:59 06:59 14:59 Intake Total 725 Balance 725 Intake: IV 725 Sodium Chloride 0.9% 1, 725 000 ml @ 100 mls/hr IV . Q10H [facility] Rx#:[id number] Other: Voiding Method Toilet # Voids 1 1 Weight 75.9 kg 75.9 kg Patient Weight 01/25/17 06:59 Weight 75.9 kg PHYSICAL EXAMINATION: HEENT: Head is atraumatic, normocephalic. Pupils equal, round. Neck is supple. There is no elevated jugular venous pressure. HEART EXAMINATION: Heart S1 and S2 systolic murmur is heard. Slight of device implantation, incision clean and dry CHEST EXAMINATION: Lungs are clear to auscultation and precussion. No chest wall tenderness is noted on palpation or with deep breathing. ABDOMEN: Soft, nontender. Bowel sounds are heard. No organomegaly noted. EXTREMITIES: 2+ peripheral pulses with no evidence of peripheral edema and no calf tenderness noted. NEUROLOGIC patient is awake, alert and oriented -3. . Results 01/23/17 17:45 01/23/17 17:45 Cardiac Enzymes 01/23/17 01/24/17 Range/Units 23:28 05:35 Troponin I 0.095 H* 0.144 H* (0.000-0.034) ng/mL Current Medications Generic Name Dose Route Start Last Admin Trade Name Freq PRN Reason Stop Dose Admin Sodium Chloride 1,000 mls @ 100 mls/hr 01/23/17 19:30 01/23/17 19:34 Saline 0.9% IV 100 mls/hr .Q10H [facility] Administration Intake and Output 01/23/17 01/24/17 01/24/17 22:59 06:59 14:59 Intake Total 725 Balance 725 Intake: IV 725 Sodium Chloride 0.9% 1, 725 000 ml @ 100 mls/hr IV . Q10H [facility] Rx#:[id number] Other: Voiding Method Toilet # Voids 1 1 Weight 75.9 kg 75.9 kg Patient Weight 01/25/17 06:59 Weight 75.9 kg EKG Interpretations (text) Initial EKG on presentation shows atrial flutter the paced rhythm. Assessment and Plan Plan: Assessment and plan #1 syncope, rule out cardiac arrhythmia, patient currently has a bi-V AICD which will be interrogated. No arrhythmias noted here. #2 history of recent BIV AICD implantation last month #3 coronary artery bypass grafting surgery in October of this year #4 ischemic cardiomyopathy #5 hypertension #6 hyperlipidemia #7 hypothyroidism #8 hypokalemia #9 hypomagnesemia Plan We will replace the patient's potassium and magnesium level. We will also have the device interrogated to assess for any arrhythmias or AICD discharge. Resume Lipitor, Lanoxin, metoprolol tartrate, lisinopril, Aldactone. Order d- dimer. Further recommendations to follow. DNP note has been reviewed, I agree with a documented findings and plan of care. Patient was seen and examined.
--- NOTE | 2017-01-24 11:51 | US ---
EXAMINATION TYPE: US carotid duplex BILAT DATE OF EXAM: 01/24/2017 9:21 AM COMPARISON: Previous carotid Doppler duplex study one September 2016 CLINICAL HISTORY: Stenosis. Syncope EXAM MEASUREMENTS: RIGHT: Peak Systolic Velocity (PSV) cm/sec ----- Right CCA: 76.5 ----- Right ICA: 92.7 ----- Right ECA: 138.3 ICA/CCA ratio: 1.2 RIGHT: End Diastole cm/sec ----- Right CCA: 15.7 ----- Right ICA: 37.0 ----- Right ECA: 22.0 LEFT: Peak Systolic Velocity (PSV) cm/sec ----- Left CCA: 101.1 ----- Left ICA: 106.0 ----- Left ECA: 139.9 ICA/CCA ratio: 1.0 LEFT: End Diastole cm/sec ----- Left CCA: 20.4 ----- Left ICA: 28.4 ----- Left ECA: 18.7 VERTEBRALS (direction of flow): Right Vertebral: Antegrade Left Vertebral: Antegrade Bilateral intimal thickening, plaque: bilateral bulb, elevated velocities: right mid ECA and left mid ECA, no significant stenosis Grayscale, color Doppler, spectral Doppler imaging performed of the carotid arteries IMPRESSION: No hemodynamic significant stenosis of the proximal internal carotid arteries bilaterall y by Doppler criteria, and indirect measurement of carotid stenosis
[2017-01-24 12:16] LABS: Anisocytosis Slight; Basophils % (A) 0 %; CH 28.3; CHCM 31.7; Eosinophils # (A) 0.1 k/uL (0-0.7); Eosinophils % (A) 1 %; HCT 31.4 % (34.0-46.0); HDW 3.35; HGB 10.1 gm/dL (11.4-16.0); Hypochromasia Slight; Luc # (Auto) 0.21; Luc % (Auto) 3; Lymphocytes # (A) 1.4 k/uL (1.0-4.8); Lymphocytes % (A) 21 %; MCH 28.8 pg (25.0-35.0); MCHC 32.2 g/dL (31.0-37.0); MCV 89.3 fL (80.0-100.0); Mean Platelet Volume 7.2; Monocytes # (A) 0.6 k/uL (0-1.0); Monocytes % (A) 9 %; Neutrophils # (A) 4.6 k/uL (1.3-7.7); Neutrophils % (A) 66 %; RBC 3.51 m/uL (3.80-5.40); RDW 17.3 % (11.5-15.5); WBC 6.9 k/uL (3.8-10.6)
[2017-01-24 12:21] LABS: ALT 22 U/L (9-52); AST 28 U/L (14-36); Alkaline Phosphatase 58 U/L (38-126); Anion Gap 10 mmol/L; Blood Urea Nitrogen 12 mg/dL (7-17); Calcium 8.3 mg/dL (8.4-10.2); Carbon Dioxide 28 mmol/L (22-30); Chloride 105 mmol/L (98-107); Creatine Kinase 341 U/L (30-135); Glucose 97 mg/dL (74-99); Non-African American GFR(MDRD) >60 (>60 ml/min/1.73 sqM); Potassium 3.8 mmol/L (3.5-5.1); Sodium 143 mmol/L (137-145); Total Bilirubin 0.6 mg/dL (0.2-1.3); Total Protein 6.2 g/dL (6.3-8.2)
[2017-01-24] MEDS: MAGNESIUM SULFATE-D5W PMX 1 GM in DEXTROSE/WATER 1 100ML.BAG IVPB SCH ×2 (13:19→16:26)
[2017-01-24] MEDS: METOPROLOL TARTRATE 50 MG TAB PO SCH (13:19)
[2017-01-24] MEDS: SPIRONOLACTONE 25 MG TAB PO SCH (13:20)
[2017-01-24] MEDS: SODIUM CHLORIDE 0.9% 1,000 ML IV SCH ×2 (13:23→21:55)
[2017-01-24] MEDS ORDERED: RX INFO: IV CONTRAST WAS GIVEN 1 EACH MISC MISCELLANE PRN (14:15)
[2017-01-24 14:26] LABS: Glucose,Whole Blood 159 mg/dL (75-99)
--- NOTE | 2017-01-24 15:27 | CT ---
EXAMINATION TYPE: CT angio chest DATE OF EXAM: 01/24/2017 3:14 PM COMPARISON: NONE HISTORY: 67-year-old female with syncope, elevated d-dimer and recent pacemaker/defibrillator. TECHNIQUE: Contiguous axial scanning of the chest performed with IV Contrast, patient injected with 6 3 mL of Omnipaque 350. Coronal/sagittal MIP reconstructions performed. CT DLP: 386.00 mGycm Automated exposure control for dose reduction was used. FINDINGS: Left anterior chest wall ICD generator with right atrial, right ventricular, and coronary sinus leads . The patient is status post bilateral mastectomy. Median sternotomy wires are present with post-CABG c hanges. Heart is mildly enlarged with trace anterior basilar pericardial effusion. The aorta is normal caliber with conventional arch vessel branching anatomy. There is satisfactory opacification of the pulmonary arterial system. Moderate respiratory motion ne[place] its evaluation but no definite pulmonary embolus is seen. There is redemonstrated volume loss and consolidation involving the right perihilar region and right upper lobe extending down to the right infrahilar region. Overall extent of consolidation volume loss appears diminished as compared to 12/17/2016. No new consolidation or pleural effusion. Tiny hiatal hernia. Some focal fat along the anterior falciform ligament. Cholecystectomy clips are p resent. An anterior splenule is incidentally noted. Bones: No osseous destructive process. IMPRESSION: 1. SOME RESPIRATORY MOTION LIMITING EVALUATION. NO DEFINITE PULMONARY EMBOLUS. 2. REDEMONSTRATED CONSOLIDATION AND VOLUME LOSS IN THE RIGHT PERIHILAR REGION SUGGESTING FIBROSIS AND LIKELY POSTTREATMENT CHANGE. CLINICALLY CORRELATE. THE OVERALL EXTENT OF RIGHT PERIHILAR OPACITY MONTRELL WS INTERVAL DECREASE COMPARED TO 12/17/2016. FOLLOW-UP INDICATED. 3. STATUS POST BILATERAL MASTECTOMIES.
[2017-01-24] MEDS ORDERED: ACETAMINOPHEN TAB 325 MG TAB PO PRN (15:38)
[2017-01-24] MEDS ORDERED: HYDROcodone/APAP 5-325MG 1 EACH TAB PO PRN (15:38)
[2017-01-24] MEDS ORDERED: ALPRAZolam 0.25 MG TAB PO PRN (15:39)
[2017-01-24] MEDS ORDERED: TEMAZEPAM 15 MG CAP PO PRN (15:39)
[2017-01-24] MEDS: CLOPIDOGREL 75 MG TAB PO SCH (16:25)
--- NOTE | 2017-01-24 16:47 | P.CNPUL ---
History of Present Illness Consult date: 01/24/17 Requesting physician: Lito Oates Reason for consult: other (Syncope) Chief complaint: Loss of consciousness History of present illness: This is a very pleasant 67-year-old female patient who follows with Dr. Arechiga in our office as her primary care physician. She has a history of breast cancer of the right breast back in 1993 were she had undergone mastectomy followed b chemoradiation, she was also tested positive for the BRCA gene and had elective left mastectomy as well. She is noted to have a right lung nodule that was positive for lymphoma which was removed at [facility]. she had presented here in September 2016 with a non-ST segment elevation myocardial infarction and subsequent coronary artery back past grafting 1 with a BRAR to the LAD in October 2016. Her postoperative echocardiogram continued to reveal severe left ventricle her systolic dysfunction and an ejection fraction of 25-30 %. She has since undergone Bi- V AICD placement by Dr. Garcia on 12/31/2016. She had seen Dr. Arechiga yesterday in our office around 3:30 PM. She was doing fine no symptoms no complaints. From there she had gone to [employer] where she was shopping and suddenly passed out. She denies any symptoms prior, no chest pain, palpitations lightheadedness or dizziness. She does not recall anything until in the emergency room here. She is seen today in consultation on the selective care unit. She is awake and alert in no acute distress. She denies any chest pain, palpitations, lightheadedness or dizziness. No shortness of breath. She states she feels in her normal state of health. She still is unclear as to any symptoms before after her loss of consciousness. A CT angiogram ruled out pulmonary embolism. There was some consolidation and volume loss in the right. Hilar region suggesting fibrosis and actual decrease of the right perihilar opacity as compared to 12/17/2016. There was no significant carotid stenosis. No acute intracranial abnormality. Chest x-ray revealed no active cardiopulmonary process. She has been hemodynamically stable. Afebrile. Maintaining good O2 saturations in the 90s on room air. Review of Systems 14 point review of system was conducted. All negative other than as mentioned in HPI. Past Medical History Past Medical History: Asthma, Coronary Artery Disease (CAD), Cancer, GERD/Reflux , Hypertension, Myocardial Infarction ([place]), Thyroid Disorder Additional Past Medical History / Comment(s): NSTEMI in September 2016 with subsequent coronary artery bypass grafting x 1, BRAR to the LAD, in October 2016. Severe ischemic cardiomyopathy with estimated ejection fraction 25-30%. Pending AICD placement. Admitted for hypotension in 11-13-16. Remote history of right Breast cancer stage 4(1993) had mastectomy and radiation/chemo,had genetic testing done,was poisitve for BRCA GENE so had elective lt masectomy done. Right lung nodule cancerous/lymphoma was removed at [facility] and post operative received 4 chemo tx) Last Myocardial Infarction Date:: History of Any Multi-Drug Resistant Organisms: None Reported Past Surgical History: Appendectomy, Breast Surgery, Cholecystectomy, Coronary Bypass/CABG, Heart Catheterization, Hysterectomy, Tubal Ligation Additional Past Surgical History / Comment(s): LT BREAST WAS POSTIVE FOR CANCER STAGE 4 cancer-had masectomy. 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 lt cataract removed, 10-07-16 CABG( 1 VESSEL), LT INTERNAL MAMMARY ARTERY TO LEFT ANT DESCENDING ARTERY. EVAN OOPHERECTOMY(PROPHYLATIC), LUNG NODULE REMOVED(CANCEROUS-lymhoma- AND RECEIVED SEVERAL CHEMO tx, several venous access devices since removed. Past Anesthesia/Blood Transfusion Reactions: No Reported Reaction Additional Past Anesthesia/Blood Transfusion Reaction / Comment(s): takes a bit to wake up after aa Past Psychological History: No Psychological Hx Reported Additional Psychological History / Comment(s): pt lives with spouse,is independant. 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 no pets. no home care services. has a shower chair and "toilet rise" and a walker if needed. Smoking Status: Never smoker Past Alcohol Use History: None Reported Past Drug Use History: None Reported - Past Family History Mother Family Medical History: Diabetes Mellitus Additional Family Medical History / Comment(s): heart valve replacment Father Family Medical History: Cancer Additional Family Medical History / Comment(s): lung cancer Sister(s) Family Medical History: Cancer Additional Family Medical History / Comment(s): breast cancer Medications and Allergies Home Medications Medication Instructions Recorded Confirmed Type Albuterol Inhaler [Ventolin Hfa 2 puff INHALATION RT-QID PRN 12/17/16 01/23/17 History Inhaler] Omeprazole 40 mg PO DAILY 12/17/16 01/23/17 History Lisinopril [Zestril] 1.25 mg PO HS 01/23/17 01/23/17 History Metoprolol Tartrate [Lopressor] 50 mg PO DAILY 01/23/17 01/23/17 History Allergies Allergy/AdvReac Type Severity Reaction Status Date / Time nickel Allergy Rash/Hives Verified 01/23/17 18:35 Physical Exam Vitals: Vital Signs Temp Pulse Pulse Resp BP BP Pulse Ox 01/24/17 12:00 102 H 18 01/24/17 11:58 98.7 F 102 H 18 136/65 01/24/17 08:00 102 H 18 109/68 01/24/17 07:30 98.5 F 102 H 16 111/57 95 01/24/17 05:30 98.6 F 103 H 16 108/53 93 L 01/24/17 03:57 16 01/24/17 03:30 98.0 F 100 16 102/53 94 L 01/24/17 01:30 97.4 F L 102 H 16 103/51 96 01/23/17 23:59 97.6 F 103 H 16 122/61 96 01/23/17 22:51 97.6 F 103 H 16 122/61 96 01/23/17 22:02 98 16 117/59 98 01/23/17 21:59 97 20 107/59 98 01/23/17 20:34 104 H 16 107/59 98 01/23/17 19:37 107/59 01/23/17 19:34 108 H 20 100 Intake and Output 01/24/17 01/24/17 01/24/17 06:59 14:59 22:59 Intake Total 725 Balance 725 Intake: IV 725 Sodium Chloride 0.9% 1, 725 000 ml @ 100 mls/hr IV . Q10H [facility] Rx#:[id number] Other: Voiding Method Toilet # Voids 1 1 Weight 75.9 kg 75.9 kg Patient Weight 01/25/17 06:59 Weight 75.9 kg GENERAL EXAM: Alert, comfortable in no apparent distress. HEAD: Normocephalic. EYES: Normal reaction of pupils, equal size. NOSE: Clear with pink turbinates. THROAT: No erythema or exudates. NECK: No masses, no JVD. CHEST: No chest wall deformity. LUNGS: Equal air entry with no crackles, wheeze, rhonchi or dullness. CVS: S1 and S2 normal with an audible murmur, regular rhythm. ABDOMEN: No hepatosplenomegaly, normal bowel sounds, no guarding or rigidity. SPINE: No scoliosis or deformity SKIN: No rashes CENTRAL NERVOUS SYSTEM: No focal deficits, tone is normal in all 4 extremities. Extremities: There is no peripheral edema. No clubbing, no cyanosis. Peripheral pulses are intact. Results - Laboratory Findings CBC and BMP: 01/24/17 11:35 01/24/17 11:35 PT/INR, D-dimer PT 11.8 sec (9.0-12.0) 01/23/17 17:45 INR 1.2 (<1.1) 01/23/17 17:45 D-Dimer 2.68 mg/L FEU (<0.60) H 01/24/17 11:35 Abnormal lab findings: Abnormal Labs 01/23/17 01/24/17 01/24/17 23:28 05:35 11:35 RBC Hgb Hct RDW D-Dimer 2.68 H Calcium Creatine Kinase Troponin I 0.095 H* 0.144 H* Total Protein 01/24/17 01/24/17 11:35 11:35 RBC 3.51 L Hgb 10.1 L Hct 31.4 L RDW 17.3 H D-Dimer Calcium 8.3 L Creatine Kinase 341 H Troponin I Total Protein 6.2 L - Diagnostic Findings Chest x-ray: image reviewed CT scan - chest: image reviewed Assessment and Plan Plan: Impression: #1 Syncope of unclear etiology, suspect cardiac arrhythmia. Pulmonary embolism , carotid stenosis, brain mass ruled out. #2 Severely impaired left ventricular systolic function with estimated ejection fraction 25-30%., Status post by V AICD placed in December 2016. #3 Coronary artery disease status post coronary artery bypass grafting 1 with a BRAR to the LAD in October 2016. #4 Chronic cough secondary to radiation pneumonitis. #5 Chronic bronchial asthma, currently inactive and stable. #6Hypertension. #7 Hypothyroidism. #8 History of breast cancer status post mastectomy and chemo/radiation. Found to be BRCA gene positive and had undergone a prophylactic mastectomy. #Bone marrow transplant in 1994 with history of lymphoma treated at [facility]. Plan: The patient was seen and evaluated by Dr. Mayen. Her chest x-ray, CAT scan and labs were all reviewed. We are awaiting interrogation of her device for suspected cardiac arrhythmia. We'll continue to monitor her here closely on the selective care unit. Cardiology is on the case as well. We will continue to follow and make further recommendations based on her clinical status. Time with Patient: Greater than 30
--- NOTE | 2017-01-24 20:05 | HP ---
DATE OF ADMISSION: 01/23/2017 CHIEF COMPLAINT: Syncope. HISTORY OF PRESENT ILLNESS: This 67-year-old woman with a past medical history of asthma, CAD, GERD, hypertension, history of myocardial infarction, history of CAD, CABG, history of ischemic cardiomegaly with ejection fraction 25% to 30%, ventricular AICD, followed by Dr. Arechiga in the outpatient setting, apparently had a doctor's appointment yesterday. Subsequently the patient went to [employer] and while shopping the patient lost consciousness and was found lying on the floor. Patient was confused. She was taken to [facility]. Patient is not remembering the events for at least a couple of hours. No obvious seizure-like movements were noted. No incontinence. The patient came to [facility] and was admitted for evaluation and treatment. There is no history of any fever, rigor or chills, no history of headache, seizures. Of note, after admission white count was elevated, potassium was 3, and troponins were found to be elevated up to 0.017, 0.095 and 0.144. AICD interrogation is planned by Cardiology. PAST MEDICAL HISTORY: 1. History of CAD, CABG. 2. History of asthma. 3. GERD. 4. Hypertension. 5. History of myocardial infarction. 6. Hypothyroidism. 7. History of AICD placement. 8. Chronic systolic dysfunction. 9. Cardiomyopathy. 10. Appendectomy. 11. Breast surgery. Medications prior to admission include: 1. Lopressor 50 mg p.o. daily. 2. Aldactone 12.5 mg daily. 3. Omeprazole 40 mg p.o. daily. 4. Zestril 1.25 mg q.6. 5. Synthroid 50 mcg p.o. at bedtime. 6. Ativan 1 mg p.o. b.i.d. 7. Hepler 5 mg q.4 p.r.n. 8. Lasix 40 mg p.o. daily. 9. Colace 100 mg p.o. b.i.d. 10. Lanoxin 125 mcg p.o. daily. 11. Plavix 75 mg p.o. daily. 12. Lipitor 40 mg at bedtime. 13. Aspirin 325 mg daily. 14. Ventolin HFA 2 puffs q.i.d. p.r.n. 15. Tylenol 650 q.6 p.r.n. ALLERGIES: NICKEL. FAMILY HISTORY: History of diabetes, heart valve replacement in the family. SOCIAL HISTORY: No history of smoking. No history of alcohol intake. REVIEW OF SYSTEMS: ENT: No diminished hearing. No diminished vision. CARDIOVASCULAR SYSTEM: As mentioned earlier. RESPIRATORY SYSTEM: As mentioned earlier. GI: No nausea, vomiting. : No dysuria. NERVOUS SYSTEM: No numbness, weakness. ALLERGY/IMMUNOLOGY: No asthma or hayfever. MUSCULOSKELETAL: As mentioned earlier. HEMATOLOGY/ONCOLOGY: As mentioned earlier. ENDOCRINE: As mentioned earlier. CONSTITUTIONAL: As mentioned earlier. DERMATOLOGY: Negative. RHEUMATOLOGY: Negative. PSYCHIATRY: As mentioned earlier. PHYSICAL EXAMINATION: Patient is alert and oriented x3. Pulse is 102, blood pressure 136/65, respiration 18, temperature 98.7, pulse ox 94% on room air. HEENT: Conjunctivae normal. Oral mucosa moist. NECK: No jugular venous distention. No carotid bruit. No lymph node enlargement. CARDIOVASCULAR SYSTEM: S1, S2 muffled. No S3. No S4. RESPIRATORY SYSTEM: Breath sounds diminished at the bases. Bilateral scattered rhonchi. No crackles. ABDOMEN: Soft, obese, nontender. No mass palpable. LEGS: No edema. No swelling. NERVOUS SYSTEM: Higher functions as mentioned earlier. Moves all 4 limbs. No focal motor or sensory deficit. LYMPHATICS: No lymph node palpable in neck, axillae or groin. SKIN: No ulcer, rash, bleeding. JOINTS: No active deforming arthropathy. LABS: D-dimer is 2.68. Otherwise, WBC 6.9, hemoglobin 10.1. Troponins noted. Other labs are noted. X-rays reviewed personally. ASSESSMENT: 1. Syncope for evaluation. Rule out cardiac arrhythmia versus acute stroke or transient ischemic attack. 2. Anemia, normocytic; anemia of chronic disease. 3. Hypokalemia. 4. Troponin 0.144, indeterminate. 5. Mild acute renal failure, present on admission. 6. History of coronary artery disease, coronary artery bypass grafting. 7. History of asthma. 8. History of gastroesophageal reflux disease. 9. Hypertension, essential. 10. History of myocardial infarction. 11. History of hypothyroidism. 12. Chronic systolic dysfunction with ischemic cardiomyopathy, ejection fraction 25% to 30%, with congestive heart failure. 13. Remote history of breast cancer; BRCA-positive. 14. Status post right lung nodule, possible lymphoma, status post resection and chemotherapy. RECOMMENDATIONS AND DISCUSSION: I recommend to continue with the current medications, continue with symptomatic treatment. Otherwise, I would cardiology consultation and supplement potassium. I would recommend resuming the home medications. Digoxin level will be checked. The etiology of elevated troponins is uncertain at this time. Will closely follow with Cardiology. Prognosis guarded, which I discussed at length with the family, who understands and agrees. Further recommendations to follow. I also recommend neurology consultation to rule out the possibility of any TIA.
[2017-01-24] MEDS: LORazepam 1 MG TAB PO SCH (20:53)
[2017-01-24] MEDS: ATORVASTATIN 40 MG TAB PO SCH (20:53)
[2017-01-24] MEDS: LISINOPRIL 2.5 MG TAB PO SCH (20:53)
[2017-01-24] MEDS: LEVOTHYROXINE 50 MCG TAB PO SCH (20:53)
[2017-01-24] MEDS: DOCUSATE 100 MG CAP PO SCH (20:53)
[2017-01-24] MEDS: HEPARIN SODIUM,PORCINE 5,000 UNIT/ML 1 ML VIAL SQ SCH (20:54)
--- NOTE | 2017-01-24 22:33 | P.CNNES ---
History of Present Illness Consult date: 01/23/17 Requesting physician: Alexys Rose Reason for Consult: syncope Chief complaint: altered mental status History of Present Illness: Patient is a 67-year-old female who presented at the emergency department for possible seizure. EMS was called for possible seizure and arrived to find the patient not seizing however did have some abnormal activity and was lying on the ground. Patient does not recall the episode. Patient stated that she felt fine and had no complaints however does admit that she doesn't recall most of the day of the event. No headache. No deformity or appearance of trauma to the head or neck. Patient does not feel weak. No history of similar symptoms previously. Upon speaking with the patient, she does self adjusted her blood pressure medications and had been doing so for the previous 72 hours prior to the occurrence. Patient does have a history of coronary artery bypass graft in October 2016. 1 stent was placed. BRAR to LAD. Patient is pending AICD placement. Patient does have a history of hypotension with hospitalization in November 2016. On initial contact, the patient was supine in bed in no acute distress. Review of Systems unless previously noted, all systems are negative. Past Medical History Past Medical History: Asthma, Coronary Artery Disease (CAD), Cancer, GERD/Reflux , Hypertension, Myocardial Infarction (RI), Thyroid Disorder Additional Past Medical History / Comment(s): NSTEMI in September 2016 with subsequent coronary artery bypass grafting x 1, BRRA to the LAD, in October 2016. Severe ischemic cardiomyopathy with estimated ejection fraction 25-30%. Pending AICD placement. Admitted for hypotension in 11-13-16. Remote history of right Breast cancer stage 4(1993) had mastectomy and radiation/chemo,had genetic testing done,was poisitve for BRCA GENE so had elective lt masectomy done. Right lung nodule cancerous/lymphoma was removed at [facility] and post operative received 4 chemo tx) Last Myocardial Infarction Date:: History of Any Multi-Drug Resistant Organisms: None Reported Past Surgical History: Appendectomy, Breast Surgery, Cholecystectomy, Coronary Bypass/CABG, Heart Catheterization, Hysterectomy, Tubal Ligation Additional Past Surgical History / Comment(s): LT BREAST WAS POSTIVE FOR CANCER STAGE 4 cancer-had masectomy. 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 lt cataract removed, 10-07-16 CABG( 1 VESSEL), LT INTERNAL MAMMARY ARTERY TO LEFT ANT DESCENDING ARTERY. EVAN OOPHERECTOMY(PROPHYLATIC), LUNG NODULE REMOVED(CANCEROUS-lymhoma- AND RECEIVED SEVERAL CHEMO tx, several venous access devices since removed. Past Anesthesia/Blood Transfusion Reactions: No Reported Reaction Additional Past Anesthesia/Blood Transfusion Reaction / Comment(s): takes a bit to wake up after aa Past Psychological History: No Psychological Hx Reported Additional Psychological History / Comment(s): pt lives with spouse,is independant. owns [employer] in [place]. 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 no pets. no home care services. has a shower chair and "toilet rise" and a walker if needed. Smoking Status: Never smoker Past Alcohol Use History: None Reported Past Drug Use History: None Reported - Past Family History Mother Family Medical History: Diabetes Mellitus Additional Family Medical History / Comment(s): heart valve replacment Father Family Medical History: Cancer Additional Family Medical History / Comment(s): lung cancer Sister(s) Family Medical History: Cancer Additional Family Medical History / Comment(s): breast cancer Medications and Allergies Home Medications Medication Instructions Recorded Confirmed Type Albuterol Inhaler [Ventolin Hfa 2 puff INHALATION RT-QID PRN 12/17/16 01/23/17 History Inhaler] Omeprazole 40 mg PO DAILY 12/17/16 01/23/17 History Lisinopril [Zestril] 1.25 mg PO HS 01/23/17 01/23/17 History Metoprolol Tartrate [Lopressor] 50 mg PO DAILY 01/23/17 01/23/17 History Allergies Allergy/AdvReac Type Severity Reaction Status Date / Time nickel Allergy Rash/Hives Verified 01/23/17 18:35 Physical Examination - Vital Signs Vital Signs: Vital Signs Temp Pulse Resp BP Pulse Ox 01/24/17 20:00 97.9 F 103 H 16 113/66 97 01/24/17 16:00 98.7 F 99 16 108/65 01/24/17 12:00 102 H 18 01/24/17 11:58 98.7 F 102 H 18 136/65 01/24/17 08:00 102 H 18 109/68 01/24/17 07:30 98.5 F 102 H 16 111/57 95 01/24/17 05:30 98.6 F 103 H 16 108/53 93 L 01/24/17 03:57 16 01/24/17 03:30 98.0 F 100 16 102/53 94 L 01/24/17 01:30 97.4 F L 102 H 16 103/51 96 01/23/17 23:59 97.6 F 103 H 16 122/61 96 01/23/17 22:51 97.6 F 103 H 16 122/61 96 Intake and Output 01/24/17 01/24/17 01/24/17 06:59 14:59 22:59 Intake Total 725 160 Output Total 250 Balance 725 -90 Intake: IV 725 160 0.9 @ 20 to KVO 160 Sodium Chloride 0.9% 1, 725 000 ml @ 100 mls/hr IV . Q10H BERONICA Rx#:[id number] Output: Urine 250 Other: Voiding Method Toilet Toilet # Voids 1 2 2 Weight 75.9 kg 75.9 kg 75.9 kg Patient Weight 01/25/17 06:59 Weight 75.9 kg Constitutional: AOx3, cooperative HEENT: NC/AT, no facial asymmetry is seen. neck: Supple, no masses Respiratory: No increased work of breathing Cardiac: Regular rate and Rhythm GI: non tender, non distended Musculoskeletal: Dry Roaster strengths are equal bilaterally 5/5, Lower extremity strengths are equal bilaterally at 5/5. lymphedema noted in left upper extremity. Neurological: CN II-XII in tact, patient was AOx3, speech and language are normal, no unilateralizing weakness, no seizure activity note on physical exam. Sensation was normal. Integementary: no rash, no erythema Psychiatric: mood and affect appropriate Results - Laboratory Findings CBC and BMP: 01/24/17 11:35 01/24/17 11:35 Abnormal Lab Findings: Abnormal Labs 01/23/17 01/24/17 01/24/17 23:28 05:35 11:35 RBC Hgb Hct RDW D-Dimer 2.68 H Calcium Creatine Kinase Troponin I 0.095 H* 0.144 H* Total Protein 01/24/17 01/24/17 11:35 11:35 RBC 3.51 L Hgb 10.1 L Hct 31.4 L RDW 17.3 H D-Dimer Calcium 8.3 L Creatine Kinase 341 H Troponin I Total Protein 6.2 L Assessment and Plan (1) Hypotension Status: Acute (2) Altered mental status Status: Acute (3) Syncope Status: Acute Plan: Patient does appear to have had a syncopal episode with reasonable medical certainty related to cardiac etiology. She does have a documented history of hypotension as well as admitted self medication adjustment history with her blood pressure medication. Further, patient admits to adjusting medication on her own multiple times within the 72 hours prior to her episode. However,I am going to order an EEG, continue telemetry monitoring, continue neuro checks, continue orthostatics to rule out any new or underlying etiology. Laboratory blood work noted decreased potassium and elevated troponins. Cardiology has already been consulted and is active in attempting to manage the patient. Carotid Doppler noted no hemodynamically significant stenosis. CT of the brain noted chronic small vessel ischemic disease and mild atrophy. status: Neurology will continue to follow and provide updates as needed or warranted. Have any questions please feel free to contact our office. I discussed the patient's pertinent medical information with Dr. Coleman. He agrees with the plan of care as implemented.
[2017-01-25 06:28] LABS: Anisocytosis Slight; Basophils % (A) 1 %; CH 27.8; Eosinophils # (A) 0.2 k/uL (0-0.7); Eosinophils % (A) 4 %; HCT 30.3 % (34.0-46.0); HDW 3.34; HGB 9.8 gm/dL (11.4-16.0); Hypochromasia Moderate; Luc # (Auto) 0.16; Luc % (Auto) 3; Lymphocytes # (A) 1.4 k/uL (1.0-4.8); Lymphocytes % (A) 27 %; MCH 29.2 pg (25.0-35.0); MCHC 32.5 g/dL (31.0-37.0); MCV 89.8 fL (80.0-100.0); Mean Platelet Volume 7.3; Monocytes # (A) 0.5 k/uL (0-1.0); Monocytes % (A) 10 %; Neutrophils % (A) 56 %; RBC 3.37 m/uL (3.80-5.40); RDW 17.3 % (11.5-15.5); WBC 5.2 k/uL (3.8-10.6); WBC (Perox) 5.68
[2017-01-25] MEDS: PANTOPRAZOLE 40 MG TABLET PO SCH (06:34)
[2017-01-25 06:40] LABS: ALT 27 U/L (9-52); AST 28 U/L (14-36); Alkaline Phosphatase 69 U/L (38-126); Anion Gap 8 mmol/L; Blood Urea Nitrogen 14 mg/dL (7-17); Calcium 8.2 mg/dL (8.4-10.2); Carbon Dioxide 26 mmol/L (22-30); Chloride 107 mmol/L (98-107); Glucose 98 mg/dL (74-99); Non-African American GFR(MDRD) >60 (>60 ml/min/1.73 sqM); Potassium 3.6 mmol/L (3.5-5.1); Sodium 141 mmol/L (137-145); Total Bilirubin 0.6 mg/dL (0.2-1.3); Total Protein 5.9 g/dL (6.3-8.2)
[2017-01-25] MEDS: CLOPIDOGREL 75 MG TAB PO SCH (08:20)
[2017-01-25] MEDS: DOCUSATE 100 MG CAP PO SCH ×2 (08:20→21:01)
[2017-01-25] MEDS: SPIRONOLACTONE 25 MG TAB PO SCH (08:20)
[2017-01-25] MEDS: DIGOXIN 125 MCG TAB PO SCH (08:21)
[2017-01-25] MEDS: HEPARIN SODIUM,PORCINE 5,000 UNIT/ML 1 ML VIAL SQ SCH ×2 (08:21→21:12)
[2017-01-25] MEDS: LORazepam 1 MG TAB PO SCH ×2 (08:23→21:11)
[2017-01-25] MEDS: METOPROLOL TARTRATE 50 MG TAB PO SCH (08:24)
[2017-01-25] MEDS: MULTIVITAMINS, THERA 1 EACH TAB PO SCH (13:26)
--- NOTE | 2017-01-25 13:40 | P.PN ---
Subjective This is a very pleasant 67-year-old female patient who follows with Dr. Arechiga in our office as her primary care physician. She has a history of breast cancer of the right breast back in 1993 were she had undergone mastectomy followed b chemoradiation, she was also tested positive for the BRCA gene and had elective left mastectomy as well. She is noted to have a right lung nodule that was positive for lymphoma which was removed at [facility]. she had presented here in September 2016 with a non-ST segment elevation myocardial infarction and subsequent coronary artery back past grafting 1 with a BRAR to the LAD in October 2016. Her postoperative echocardiogram continued to reveal severe left ventricle her systolic dysfunction and an ejection fraction of 25-30 %. She has since undergone Bi- V AICD placement by Dr. Garcia on 12/31/2016. She had seen Dr. Arechiga yesterday in our office around 3:30 PM. She was doing fine no symptoms no complaints. From there she had gone to [employer] where she was shopping and suddenly passed out. She denies any symptoms prior, no chest pain, palpitations lightheadedness or dizziness. She does not recall anything until in the emergency room here. She is seen today in consultation on the selective care unit. She is awake and alert in no acute distress. She denies any chest pain, palpitations, lightheadedness or dizziness. No shortness of breath. She states she feels in her normal state of health. She still is unclear as to any symptoms before after her loss of consciousness. A CT angiogram ruled out pulmonary embolism. There was some consolidation and volume loss in the right. Hilar region suggesting fibrosis and actual decrease of the right perihilar opacity as compared to 12/17/2016. There was no significant carotid stenosis. No acute intracranial abnormality. Chest x-ray revealed no active cardiopulmonary process. She has been hemodynamically stable. Afebrile. Maintaining good O2 saturations in the 90s on room air. The patient is seen again today 01/25/2017 in follow-up on the selective care unit. She is awake and alert in no acute distress. No further episode of syncope. No dizziness or lightheadedness. Her AICD was interrogated and there was no arrhythmias detected. Carotid Doppler negative for significant stenosis. Today she's been up ambulating in the room without distress. She's been hemodynamically stable. Objective - Vital Signs Vital signs: Vital Signs Temp 98.8 F 01/25/17 08:00 Pulse 95 01/25/17 12:00 Resp 14 01/25/17 12:00 BP 112/53 01/25/17 12:00 Pulse Ox 95 01/25/17 12:00 Intake & Output 01/24/17 01/25/17 01/25/17 18:59 06:59 18:59 Intake Total 320 180 Output Total 250 Balance -250 320 180 Weight 75.9 kg 77.3 kg Intake: IV 320 0.9 @ 20 to KVO 320 Oral 180 Output: Urine 250 Other: Voiding Method Toilet Toilet Toilet # Voids 1 2 - Exam GENERAL EXAM: Alert, active, comfortable in no apparent distress. HEAD: Normocephalic. EYES: Normal reaction of pupils, equal size. NOSE: Clear with pink turbinates. THROAT: No erythema or exudates. NECK: No masses, no JVD. CHEST: No chest wall deformity. LUNGS: Equal air entry with no crackles, wheeze, rhonchi or dullness. CVS: S1 and S2 normal with no audible murmurs, regular rhythm. ABDOMEN: No hepatosplenomegaly, normal bowel sounds, no guarding or rigidity. SPINE: No scoliosis or deformity SKIN: No rashes CENTRAL NERVOUS SYSTEM: No focal deficits, tone is normal in all 4 extremities. Extremities: There is no significant peripheral edema. No clubbing, no cyanosis. Peripheral pulses are intact. - Labs CBC & Chem 7: 01/25/17 05:48 01/25/17 05:48 Labs: Abnormal Lab Results - Last 24 Hours (Table) 01/25/17 01/25/17 Range/Units 05:48 05:48 RBC 3.37 L (3.80-5.40) m/uL Hgb 9.8 L (11.4-16.0) gm/dL Hct 30.3 L (34.0-46.0) % RDW 17.3 H (11.5-15.5) % Calcium 8.2 L (8.4-10.2) mg/dL Total Protein 5.9 L (6.3-8.2) g/dL Albumin 3.3 L (3.5-5.0) g/dL Assessment and Plan Plan: Impression: #1 Syncope of unclear etiology. Pulmonary embolism, carotid stenosis, cardiac arrhythmia, brain mass ruled out. Suspect hypotension as the patient has been adjusting her own a blood pressure medications recently. #2 Severely impaired left ventricular systolic function with estimated ejection fraction 25-30%., Status post by Bi-V AICD placed in December 2016. #3 Coronary artery disease status post coronary artery bypass grafting 1 with a BRAR to the LAD in October 2016. #4 Chronic cough secondary to radiation pneumonitis. #5 Chronic bronchial asthma, currently inactive and stable. #6 Hypertension. #7 Hypothyroidism. #8 History of breast cancer status post mastectomy and chemo/radiation. Found to be BRCA gene positive and had undergone a prophylactic mastectomy. #Bone marrow transplant in 1994 with history of lymphoma treated at [facility]. Plan: The patient was seen and evaluated by Dr. Mayen. She was educated that her syncopal episode may be of unknown etiology versus possible hypotension. Other workup has been negative thus far. Neurology and cardiology are on the case as well. She is stable from the pulmonary standpoint. We'll see her in the outpatient setting as scheduled.
--- NOTE | 2017-01-25 15:48 | P.PN ---
Subjective This is a 67-year-old female who follows with Dr. Coleman in the office. She has a known history of coronary artery disease with recent coronary artery bypass grafting surgery in October of this year. Patient also has ischemic cardiomyopathy and recently underwent implantation of a bi-V ICD by Dr. Banegas. According to the patient she's been doing quite well at home. Prior to admission she went to [place] with her she was walking through the [employer] [facility] and the next thing she recalls is waking up in the EMS. Patient said she had no dizziness no lightheadedness, no palpitations, no chest discomfort earlier that day or at the time of the syncope. She had no warning prior to passing out. Her EKG on presentation showed atrial sensed and ventricular paced rhythm. She was found to be hypokalemic with a potassium of 3.0 and have low magnesium level of 1.2. Troponins were 0.017, 0.[address] of the brain revealed mild evidence for chronic small vessel ischemia. With no acute intracranial abnormality. Echocardiogram with Doppler was performed which revealed an ejection fraction of 20-25% with mild to moderate aortic regurgitation. Chest x-ray did not reveal any active cardiopulmonary disease. Patient's AICD was interrogated yesterday and showed normal biventricular ICD/DDDR function with no tachyarrhythmias. Upon examination this morning, patient feels well. She denies any complaints of chest discomfort, shortness of breath, dizziness or further syncope. Objective - Vital Signs Vital signs: Vital Signs Temp 98.8 F 01/25/17 08:00 Pulse 95 01/25/17 12:00 Resp 14 01/25/17 12:00 BP 112/53 01/25/17 12:00 Pulse Ox 95 01/25/17 12:00 Intake & Output 01/24/17 01/25/17 01/25/17 18:59 06:59 18:59 Intake Total 320 360 Output Total 250 225 Balance -250 320 135 Weight 75.9 kg 77.3 kg 77.3 kg Intake: IV 320 0.9 @ 20 to KVO 320 Oral 360 Output: Urine 250 225 Other: Voiding Method Toilet Toilet Toilet # Voids 1 2 1 - Exam PHYSICAL EXAMINATION: HEENT: Head is atraumatic, normocephalic. Pupils equal, round. Neck is supple. There is no elevated jugular venous pressure. HEART EXAMINATION: Heart sounds regular, S1 and S2 with a systolic murmur. LIC incision clean and dry, well approximated.. CHEST EXAMINATION: Lungs reveal scattered rhonchi which clear with coughing. No chest wall tenderness is noted on palpation or with deep breathing. ABDOMEN: Soft, nontender. Bowel sounds are heard. No organomegaly noted. EXTREMITIES: 2+ peripheral pulses with no evidence of peripheral edema and no calf tenderness noted. NEUROLOGIC patient is awake, alert and oriented x3. . - Labs CBC & Chem 7: 01/25/17 05:48 01/25/17 05:48 Labs: Abnormal Lab Results - Last 24 Hours (Table) 01/25/17 01/25/17 Range/Units 05:48 05:48 RBC 3.37 L (3.80-5.40) m/uL Hgb 9.8 L (11.4-16.0) gm/dL Hct 30.3 L (34.0-46.0) % RDW 17.3 H (11.5-15.5) % Calcium 8.2 L (8.4-10.2) mg/dL Total Protein 5.9 L (6.3-8.2) g/dL Albumin 3.3 L (3.5-5.0) g/dL Assessment and Plan Plan: #1 syncope #2 ischemic cardiomyopathy, recent by V AICD implantation #3 coronary artery bypass grafting surgery in October of this year #4 hypertension #5 hyperlipidemia #6 hypothyroidism #7 hypokalemia #8 hypomagnesemia Patient's potassium and magnesium levels are now normal. From cardiology standpoint, we do not feel that syncope was cardiac related. Continue current medications. We will follow the patient with you on an as-needed basis. Please do not hesitate to call us with questions. BOARD LINER OPERATOR note has been reviewed, I agree with a documented findings and plan of care. Patient was seen and examined.
[2017-01-25] MEDS: ATORVASTATIN 40 MG TAB PO SCH (21:11)
[2017-01-25] MEDS: LEVOTHYROXINE 50 MCG TAB PO SCH (21:12)
[2017-01-25] MEDS: LISINOPRIL 2.5 MG TAB PO SCH (21:12)
--- NOTE | 2017-01-25 22:32 | P.PN ---
Subjective Principal diagnosis: Syncope Likely secondary to hypotension Patient is a 59-year-old female being followed by neurology for syncopal episode. Patient does not recall the incident, states she feels fine and has no complaints. However she does admit that she doesn't recall the incident. She did not have any pain, no headache and patient does not feel weak. No known history of similar type symptoms previously. Patient stated she began feeling lightheaded with changing position while at work. She did not report any other symptoms prior to the episode. Patient did admit to self adjusting her blood pressure medications several times within the previous 48-72 hours before the incident. Patient was supine in bed resting in no acute distress. Objective - Vital Signs Vital signs: Vital Signs Temp 98.6 F 01/25/17 16:00 Pulse 106 H 01/25/17 18:48 Resp 16 01/25/17 16:00 BP 124/58 01/25/17 18:48 Pulse Ox 98 01/25/17 16:00 Intake & Output 01/25/17 01/25/17 01/26/17 06:59 18:59 06:59 Intake Total 320 360 Output Total 225 Balance 320 135 Weight 77.3 kg 77.3 kg Intake: IV 320 0.9 @ 20 to KVO 320 Oral 360 Output: Urine 225 Other: Voiding Method Toilet Toilet # Voids 2 1 1 - Exam Constitutional: AOx3, cooperative HEENT: NC/AT, no facial asymmetry is seen. Throat: Supple, no masses Respiratory: No increased work of breathing Cardiac: Regular rate and Rhythm GI: non tender, non distended Musculoskeletal: Health Information Provider strengths are equal bilaterally 5/5, Lower extremity strengths are equal bilaterally at 5/5. Left upper extremity lymphedema. Neurological: CN II-XII in tact, patient was AOx3, speech and language are normal, no unilateralizing weakness, no seizure activity note on physical exam. Sensation was normal. Integementary: no rash, no erythema Psychiatric: mood and affect appropriate - Constitutional Constitutional Comment(s): All systems not noted in HPI consider negative - Labs CBC & Chem 7: 01/25/17 05:48 01/25/17 05:48 Labs: Abnormal Lab Results - Last 24 Hours (Table) 01/25/17 01/25/17 Range/Units 05:48 05:48 RBC 3.37 L (3.80-5.40) m/uL Hgb 9.8 L (11.4-16.0) gm/dL Hct 30.3 L (34.0-46.0) % RDW 17.3 H (11.5-15.5) % Calcium 8.2 L (8.4-10.2) mg/dL Total Protein 5.9 L (6.3-8.2) g/dL Albumin 3.3 L (3.5-5.0) g/dL Assessment and Plan (1) Hypotension Status: Acute (2) Altered mental status Status: Acute (3) Syncope Status: Acute Plan: Patient does appear to have had a syncopal episode with reasonable medical certainty related to cardiac etiology. She does have a documented history of hypotension as well as admitted self medication adjustment history with her blood pressure medication. Further, patient admits to adjusting medication on her own multiple times within the 72 hours prior to her episode. Patient did not have any further incidents while inpatient. EEG was ordered and is still pending. No other abnormal neurological activity was reported by nursing.Cardiology has already been consulted and is active in attempting to manage the patient. Carotid Doppler noted no hemodynamically significant stenosis. CT of the brain noted chronic small vessel ischemic disease and mild atrophy. status: Neurology will The patient for discharge. Plavix and Lipitor to be continued outpatient and existing dose and frequency. Patient to follow-up in our office within 10-14 days. EEG results can be followed up outpatient. I discussed the patient's pertinent medical information with Dr. Coleman. He agrees with the plan of care as implemented.
--- NOTE | 2017-01-25 22:40 | PN ---
DATE OF SERVICE: 01/25/2017 This 67-year-old woman who was admitted with syncope also had significant cardiomyopathy. Cardiology is following the patient closely. The AICD interrogation showed normal biventricular ICD DDR function with no tachyarrhythmias. Neurology is evaluating the patient. EEG is pending at this time. PHYSICAL EXAM: Patient is alert and oriented x3. Pulse is 94, blood pressure 120/58, respiration 16, temperature 98.6, pulse ox 98% on room air. HEENT: Conjunctivae normal. NECK: No jugular venous distention. CARDIOVASCULAR SYSTEM: S1, S2 muffled. RESPIRATORY SYSTEM: Breath sounds diminished at the bases. A few scattered rhonchi. No crackles. ABDOMEN: Soft, nontender. LEGS: No edema. No swelling. NERVOUS SYSTEM: No focal deficit. LABS: WBC 5.2, hemoglobin 9.8. Troponins are noted. ASSESSMENT: 1. Syncope for evaluation. Cardiac arrhythmia ruled out. Rule out TIA or orthostatic hypotension. Rule out seizure disorder. 2. Anemia, normocytic; anemia of chronic disease. 3. Hypokalemia. 4. Troponin 0.144, indeterminate. 5. Mild acute renal failure, present on admission. 6. History of coronary artery disease, coronary artery bypass graft. 7. History of asthma. 8. History of gastroesophageal reflux disease. 9. Hypertension, essential. 10. History of myocardial infarction. 11. History of hypothyroidism. 12. History of systolic dysfunction with ischemic cardiomyopathy; ejection fraction 30%, with congestive heart failure. 13. Remote history of breast cancer, BRCA positive. 14. Status post right lung nodules and possible lymphoma, status post radiation and chemotherapy. RECOMMENDATIONS AND DISCUSSION: In this 67-year-old woman who presented with multiple medical issues, we will monitor the patient closely, continue the current medication, continue with symptomatic treatment. Follow closely with Neurology and Cardiology. I would also recommend orthostatic vitals 3 times a day and continue to monitor. Further recommendations to follow. Prognosis guarded. Patient understands and agrees. As mentioned earlier, the pacemaker interrogation was negative, ruling out the possibility of any acute cardiac arrhythmia.
[2017-01-26 06:16] LABS: Anisocytosis Slight; Basophils % (A) 1 %; CH 28.3; Eosinophils # (A) 0.2 k/uL (0-0.7); Eosinophils % (A) 4 %; HCT 30.3 % (34.0-46.0); HDW 3.19; HGB 9.3 gm/dL (11.4-16.0); Hypochromasia Moderate; Luc # (Auto) 0.16; Luc % (Auto) 3; Lymphocytes # (A) 1.2 k/uL (1.0-4.8); Lymphocytes % (A) 23 %; MCH 28.2 pg (25.0-35.0); MCHC 30.8 g/dL (31.0-37.0); MCV 91.3 fL (80.0-100.0); Mean Platelet Volume 7.4; Monocytes # (A) 0.5 k/uL (0-1.0); Monocytes % (A) 9 %; Neutrophils # (A) 3.1 k/uL (1.3-7.7); Neutrophils % (A) 60 %; RBC 3.31 m/uL (3.80-5.40); RDW 17.6 % (11.5-15.5); WBC 5.2 k/uL (3.8-10.6); WBC (Perox) 5.71
[2017-01-26 06:36] LABS: ALT 25 U/L (9-52); AST 25 U/L (14-36); Alkaline Phosphatase 71 U/L (38-126); Anion Gap 6 mmol/L; Blood Urea Nitrogen 13 mg/dL (7-17); Calcium 8.8 mg/dL (8.4-10.2); Carbon Dioxide 29 mmol/L (22-30); Chloride 107 mmol/L (98-107); Glucose 109 mg/dL (74-99); Non-African American GFR(MDRD) >60 (>60 ml/min/1.73 sqM); Potassium 3.9 mmol/L (3.5-5.1); Sodium 142 mmol/L (137-145); Total Bilirubin 0.6 mg/dL (0.2-1.3)
[2017-01-26] MEDS: PANTOPRAZOLE 40 MG TABLET PO SCH (06:40)
[2017-01-26] MEDS: DOCUSATE 100 MG CAP PO SCH ×2 (08:22→08:30)
[2017-01-26] MEDS: CLOPIDOGREL 75 MG TAB PO SCH (08:22)
[2017-01-26] MEDS: SPIRONOLACTONE 25 MG TAB PO SCH (08:23)
[2017-01-26] MEDS: MULTIVITAMINS, THERA 1 EACH TAB PO SCH (08:23)
[2017-01-26] MEDS: HEPARIN SODIUM,PORCINE 5,000 UNIT/ML 1 ML VIAL SQ SCH (08:23)
[2017-01-26] MEDS: METOPROLOL TARTRATE 50 MG TAB PO SCH (08:23)
[2017-01-26] MEDS: DIGOXIN 125 MCG TAB PO SCH (08:24)
[2017-01-26] MEDS: LORazepam 1 MG TAB PO SCH (08:24)
[2017-01-26 08:35] VITALS: RESP 18
[2017-01-26 11:38] VITALS: TEMP 98
[2017-01-26 12:46] VITALS: BP 117/58; PULSE 88
[2017-01-26] MEDS ORDERED: FUROSEMIDE 40 MG TAB PO SCH (14:00)
--- NOTE | 2017-01-26 15:03 | P.PN ---
Subjective This is a 67-year-old female who follows with Dr. Coleman in the office. She has a known history of coronary artery disease with recent coronary artery bypass grafting surgery in October of this year. Patient also has ischemic cardiomyopathy and recently underwent implantation of a bi-V ICD by Dr. Banegas. According to the patient she's been doing quite well at home. Prior to admission she went to [employer] with her she was walking through the [employer] and the next thing she recalls is waking up in the EMS. Patient said she had no dizziness no lightheadedness, no palpitations, no chest discomfort earlier that day or at the time of the syncope. She had no warning prior to passing out. Her EKG on presentation showed atrial sensed and ventricular paced rhythm. She was found to be hypokalemic with a potassium of 3.0 and have low magnesium level of 1.2. Troponins were 0.017, 0.[address] of the brain revealed mild evidence for chronic small vessel ischemia. With no acute intracranial abnormality. Echocardiogram with Doppler was performed which revealed an ejection fraction of 20-25% with mild to moderate aortic regurgitation. Chest x-ray did not reveal any active cardiopulmonary disease. Patient's AICD was interrogated and showed normal biventricular ICD/DDDR function with no tachyarrhythmias. Upon examination this morning, patient feels well. She denies any complaints of chest discomfort, shortness of breath, dizziness or further syncope. She has been up walking in the halls without difficulty. Objective - Vital Signs Vital signs: Vital Signs Temp 98 F 01/26/17 11:36 Pulse 88 01/26/17 12:42 Resp 18 01/26/17 11:36 BP 117/58 01/26/17 12:42 Pulse Ox 99 01/26/17 11:36 Intake & Output 01/25/17 01/26/17 01/26/17 18:59 06:59 18:59 Intake Total 360 Output Total 225 Balance 135 Weight 77.3 kg 77.1 kg Intake: Oral 360 Output: Urine 225 Other: Voiding Method Toilet Toilet # Voids 1 1 - Exam PHYSICAL EXAMINATION: HEENT: Head is atraumatic, normocephalic. Pupils equal, round. Neck is supple. There is no elevated jugular venous pressure. HEART EXAMINATION: Heart sounds regular, S1 and S2 with a systolic murmur. LIC incision clean and dry, well approximated.. CHEST EXAMINATION: Lungs reveal scattered rhonchi which clear with coughing. No chest wall tenderness is noted on palpation or with deep breathing. ABDOMEN: Soft, nontender. Bowel sounds are heard. No organomegaly noted. EXTREMITIES: 2+ peripheral pulses with no evidence of peripheral edema and no calf tenderness noted. NEUROLOGIC patient is awake, alert and oriented x3. . - Labs CBC & Chem 7: 01/26/17 05:37 01/26/17 05:37 Labs: Abnormal Lab Results - Last 24 Hours (Table) 01/26/17 01/26/17 Range/Units 05:37 05:37 RBC 3.31 L (3.80-5.40) m/uL Hgb 9.3 L (11.4-16.0) gm/dL Hct 30.3 L (34.0-46.0) % MCHC 30.8 L (31.0-37.0) g/dL RDW 17.6 H (11.5-15.5) % Glucose 109 H (74-99) mg/dL Total Protein 6.0 L (6.3-8.2) g/dL Albumin 3.3 L (3.5-5.0) g/dL Assessment and Plan Plan: #1 syncope #2 ischemic cardiomyopathy, recent by V AICD implantation #3 coronary artery bypass grafting surgery in October of this year #4 hypertension #5 hyperlipidemia #6 hypothyroidism #7 hypokalemia #8 hypomagnesemia From cardiology's standpoint, we feel the patient is stable for discharge. She will follow-up in the office with Dr. Coleman. PREVENTION RN note has been reviewed, I agree with a documented findings and plan of care. Patient was seen and examined.
--- NOTE | 2017-01-27 14:15 | DS ---
DATE OF ADMISSION: 01/23/2017 DATE OF DISCHARGE: 01/26/2017 FINAL DIAGNOSES: 1. Syncope for evaluation of possibly orthostatic hypotension. Cardiac arrhythmia ruled out. Possible transient ischemic attack. 2. Anemia, normocytic anemia of chronic disease. 3. Hypokalemia. 4. Troponin of 0.144, indeterminate. 5. Mild acute renal failure, present on admission. 6. History of coronary artery disease, coronary artery bypass grafting. 7. History of asthma. 8. History of gastroesophageal reflux disease. 9. Hypertension, essential. 10. History of myocardial infarction. 11. History of hypothyroidism. 12. History of chronic systolic dysfunction with ischemic cardiomyopathy with chronic congestive heart failure, ejection fraction 30%. 13. Remote history of breast cancer, BRCA positive. 14. Status post right lung nodule and possibly lymphoma, status post radiation chemotherapy. 15. FULL CODE. DISCHARGE DISPOSITION: Patient will be discharged in a stable condition with guarded prognosis. HISTORY OF PRESENT ILLNESS: This 67-year-old woman with a past medical history of multiple medical problems, including asthma exacerbation, being followed by Dr. Arechiga in the outpatient setting, admitted with features of syncope. The patient is confused immediately or syncope; however, the interrogation of the AICD did not reveal any tachy arrhythmias. Cardiology saw the patient, Neurology also. A full cardiovascular workup was done. A carotid Doppler was also done, which showed bilateral internal thickening, but no hemodynamically significant stenosis of the internal carotid arteries was noted. A 2-D echo was done by Cardiology, showing ejection fraction of 20% to 25%. The orthostatic vitals were negative. On exam, vitals were stable. CARDIOVASCULAR SYSTEM: S1, S2 muffled. No murmur. ABDOMEN: Soft. NERVOUS SYSTEM: No focal deficits. LABS: Hemoglobin is 9.3. Albumin is 3.3. Patient will be discharged in a guarded prognosis with the followin. Diet is cardiac. 2. Activity limited until followup. 3. Follow up with Dr. Arechiga in 1 to 2 days. 4. Followup with Dr. Coleman is advised. 5. Followup with Cardiology is advised. 6. Medications are: a. Tylenol 650 every 6 hours p.r.n. b. Ventolin 2 puffs q.i.d. and p.r.n. c. Aspirin 325 mg p.o. daily. d. Lipitor 40 mg q.h.s. e. Plavix 75 mg p.o. daily. f. Lanoxin 125 mcg p.o. daily. g. Colace 100 mg p.o. b.i.d. h. Lasix 40 mg p.o. daily. i. Hydrocodone 5 mg q.4 p.r.n. j. Ativan 1 mg p.o. b.i.d. p.r.n. k. Synthroid 50 mcg p.o. q.h.s. l. Zestril 1.25 mg p.o. q.h.s. m. Lopressor 50 mg p.o. daily. n. Omeprazole 40 mg p.o. daily. o. Aldactone 12.5 mg p.o. daily. Followup with the patient is recommended. MTDD
--- NOTE | 2017-02-13 09:20 | EEG ---
DATE OF SERVICE: 01/25/2017 REASON FOR TESTING: Syncope. AGE: 67Y DESCRIPTION OF THE PROCEDURE: This EEG was performed using a 21-channel digital electroencephalograph, following the international 10 - 20 system. DESCRIPTION OF THE RECORDING: From the beginning of the tracing, and with the patient's eyes closed, the background rhythm was mostly consisting of 8 Hz alpha frequency in the posterior occipital leads. No obvious asymmetry is seen. Photic stimulation was performed with a minimal driving response seen. No pathological waves were elicited. Rare movement artifacts are seen. Rare lead artifacts are noticed. The patient remains awake throughout the tracing. No epileptiform discharges were seen. Hyperventilation was not performed. Her EKG lead showed a regular rate and rhythm. INTERPRETATION: This awake EEG can be considered within normal limits. There was no asymmetry seen. No epileptiform discharges were noticed. The absence of epileptiform discharges does not rule out the diagnosis of epilepsy, therefore, clinical correlation is recommended.
== END 2017-01-26 15:11 | disposition home or self-care (01) | DRG 312 ==
LOC: EC 17:38 → 6SEL 19:17
PROVIDERS: ADMIT Hospitalist; ATTEND Hospitalist
DX: I95.1 Orthostatic hypotension (principal); J70.0 Acute pulmonary manifestations due to radiation; N17.9 Acute kidney failure, unspecified; I50.22 Chronic systolic (congestive) heart failure; Z94.81 Bone marrow transplant status; G45.9 Transient cerebral ischemic attack, unspecified; I11.0 Hypertensive heart disease with heart failure; E83.42 Hypomagnesemia; E03.9 Hypothyroidism, unspecified; D63.8 Anemia in other chronic diseases classified elsewhere; Z85.72 Personal history of non-Hodgkin lymphomas; E78.5 Hyperlipidemia, unspecified; E87.6 Hypokalemia; I25.10 Atherosclerotic heart disease of native coronary artery without angina pectoris; I25.2 Old myocardial infarction; I25.5 Ischemic cardiomyopathy; I35.1 Nonrheumatic aortic (valve) insufficiency; J45.909 Unspecified asthma, uncomplicated; K21.9 Gastro-esophageal reflux disease without esophagitis; Y84.2 Radiological procedure and radiotherapy as the cause of abnormal reaction of the patient, or of later complication, without mention of misadventure at the time of the procedure; Z15.01 Genetic susceptibility to malignant neoplasm of breast; Z79.02 Long term (current) use of antithrombotics/antiplatelets; Z79.82 Long term (current) use of aspirin; Z79.899 Other long term (current) drug therapy; Z80.1 Family history of malignant neoplasm of trachea, bronchus and lung; Z80.3 Family history of malignant neoplasm of breast; Z85.3 Personal history of malignant neoplasm of breast; Z90.10 Acquired absence of unspecified breast and nipple; Z92.21 Personal history of antineoplastic chemotherapy; Z92.3 Personal history of irradiation; Z95.1 Presence of aortocoronary bypass graft; Z95.810 Presence of automatic (implantable) cardiac defibrillator
CPT/HCPCS: 36415; 70450; 71020; 71275; 80053; 80162; 82550; 82553; 83735; 83880; 84484; 85025; 85379; 85610; 85730; 93005; 93306; 93880; 95819; 96365; 96366; 96368; 96375; 99214; 99285

== ENCOUNTER → 2017-04-13 | Outpatient (CLI) | payer MEDICARE, BC ==
--- NOTE | 2017-04-15 16:49 | PE ---
EXAMINATION TYPE: PET CT fusion skull to thigh DATE OF EXAM: 04/13/2017 CLINICAL HISTORY: 67 year-old female history of breast cancer and lymphoma. Last chemotherapy 4 years ago last radiation therapy 24 years ago. Status post bilateral mastectomies. TECHNIQUE: Following the intravenous administration of 12.5 mCi of F-18 FDG, whole body images are performed from the skull base to the midthigh. Images are reviewed on the computer in the coronal, a xial, and sagittal planes. Reconstructed rotating images are created on independent workstation and reviewed on the computer. A localization and attenuation correction CT is performed in conjunction with the PET scan. Glucose level: 112 mg/dL CTDI: 4.90mGy DLP: 436.16mGy-cm COMPARISON: CT chest 01/24/2017 and PET/CT 04/02/2015 FINDINGS: PET: Physiologic FDG uptake within the neck. Median sternotomy wires are present. 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 Associated mild reactive uptake here. As compared to 04/02/2015, the volume loss and consolidation at the right perihilar region extending u p into the right upper lobe and along the bronchus intermedius is stable suggesting post radiation th erapy change and fibrosis. There is mild uptake in this region, max SUV 2.5, suggesting chronic react natalia change. Scattered variable mild and moderate bowel uptake likely physiologic muscular activity. Otherwise, physiologic FDG uptake within the abdomen and pelvis. ATTENUATION CORRECTION CT: Left anterior chest wall pacemaker generator with right atrial, coronary sinus, and right ventricular leads. Visualized paranasal sinuses and mastoid air cells are clear. No cervical lymphadenopathy. Patient's previous right-sided chest port has been removed. Heart is mildly enlarged without pericardial effusion. Aorta is normal caliber with conventional arch vessel branching anatomy. No thoracic lymphadenopathy. Some patchy atelectasis inferior lingula. No pleural effusion. Some focal fat along the anterior falciform ligament. Cholecystectomy clips are present. Tiny hiatal hernia. Adrenal glands are clear. No dilated small bowel, free fluid, or free air. No mesenteric or r etroperitoneal lymphadenopathy. Mild stool burden, more moderate within the sigmoid colon and rectum. Bladder nondistended. Uterus is visualized. Ovaries not clearly seen. Pelvic phleboliths. No abnormal fluid collection in the pelvis or pelvic lymphadenopathy. Bones: Degenerative changes lower lumbar spine. Endplate spondylosis especially mid thoracic spine. N o osseous destructive process. IMPRESSION: 1. Stable volume loss and consolidation in the right perihilar region compatible with prior radiation therapy change and fibrosis. Minimal uptake here suggests chronic reactive uptake. 2. Status post bilateral mastectomies. No suspicious lymphadenopathy or evidence for metastatic disea se. 3. Incidental: Mild cardiomegaly and tiny hiatal hernia.
== END | disposition home or self-care (01) ==
LOC: RADPETMAIN 11:37
PROVIDERS: ATTEND Internal Medicine Hematology & Oncology
DX: C50.112 Malignant neoplasm of central portion of left female breast (principal); C83.39 Diffuse large B-cell lymphoma, extranodal and solid organ sites; J98.4 Other disorders of lung; Z90.13 Acquired absence of bilateral breasts and nipples
CPT/HCPCS: 78815; A9552

== ENCOUNTER 2018-01-01 09:34 | Observation (INO) | payer MEDICARE, BC ==
[2018-01-01] MEDS ORDERED: NITROGLYCERIN OINT 1 INCH/GM PACKET TOPICAL STA (09:51)
--- NOTE | 2018-01-01 09:53 | ED ---
General Adult HPI - General Chief complaint: Chest Pain Stated complaint: Chest pain Time Seen by Provider: 01/01/18 09:35 Source: patient, RN notes reviewed Mode of arrival: wheelchair Limitations: no limitations - History of Present Illness Initial comments: This is a 67-year-old female presents to the emergency department stating that she had chest pain which a few hours prior to arrival. Patient states she's had 3 episodes of chest pain is on the left side of her chest and radiates into her arm. Patient states she's also mildly short of breath when it occurs. Patient states it's a pressure sensation. Patient states she recently had bypass surgery a year ago. Patient states she does not have diabetes or high blood pressure high cholesterol. Patient denies any recent fever chills or cough. Patient denies any headache patient denies numbness weakness. Patient denies lightheadedness dizziness or near syncopal episode. Patient denies any abdominal pain patient denies any nausea vomiting diarrhea. Patient states currently she is chest pain-free and she is not short of breath. - Related Data Home Medications Medication Instructions Recorded Confirmed Omeprazole 40 mg PO DAILY 12/17/16 01/01/18 Lisinopril [Zestril] 1.25 mg PO DAILY 01/23/17 01/01/18 Metoprolol Tartrate [Lopressor] 50 mg PO DAILY 01/23/17 01/01/18 Aspirin 325 mg PO DAILY 08/04/17 01/01/18 Furosemide [Lasix] 40 mg PO DAILY 08/04/17 01/01/18 Spironolactone [Aldactone] 12.5 mg PO DAILY 08/04/17 01/01/18 Atorvastatin [Lipitor] 40 mg PO DAILY 01/01/18 01/01/18 L.acidoph,Paracasei, B.lactis 1 cap PO TID 01/01/18 01/01/18 [Probiotic] Levothyroxine Sodium [Synthroid] 50 mcg PO DAILY 01/01/18 01/01/18 Previous Rx's Medication Instructions Recorded Clopidogrel [Plavix] 75 mg PO DAILY tab 01/01/17 Digoxin [Lanoxin] 125 mcg PO DAILY tab 01/01/17 Allergies Allergy/AdvReac Type Severity Reaction Status Date / Time nickel Allergy Rash/Hives Verified 01/01/18 10:00 Review of Systems ROS Statement: Those systems with pertinent positive or pertinent negative responses have been documented in the HPI. ROS Other: All systems not noted in ROS Statement are negative. Past Medical History Past Medical History: Asthma, Coronary Artery Disease (CAD), Cancer, GERD/Reflux , Hypertension, Myocardial Infarction ([place]), Thyroid Disorder Additional Past Medical History / Comment(s): NSTEMI in September 2016 with subsequent coronary artery bypass grafting x 1, BRAR to the LAD, in October 2016. Severe ischemic cardiomyopathy with estimated ejection fraction 25-30%. Pending AICD placement. Admitted for hypotension in 11-13-16. Remote history of right Breast cancer stage 4(1993) had mastectomy and radiation/chemo,had genetic testing done,was poisitve for BRCA GENE so had elective lt masectomy done. Right lung nodule cancerous/lymphoma was removed at [facility] and post operative received 4 chemo tx) Last Myocardial Infarction Date:: History of Any Multi-Drug Resistant Organisms: None Reported Past Surgical History: Appendectomy, Breast Surgery, Cholecystectomy, Coronary Bypass/CABG, Heart Catheterization, Hysterectomy, Tubal Ligation Additional Past Surgical History / Comment(s): LT BREAST WAS POSTIVE FOR CANCER STAGE 4 cancer-had masectomy. 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 lt cataract removed, 10-07-16 CABG( 1 VESSEL), LT INTERNAL MAMMARY ARTERY TO LEFT ANT DESCENDING ARTERY. EVAN OOPHERECTOMY(PROPHYLATIC), LUNG NODULE REMOVED(CANCEROUS-lymhoma- AND RECEIVED SEVERAL CHEMO tx, several venous access devices since removed. Past Anesthesia/Blood Transfusion Reactions: No Reported Reaction Additional Past Anesthesia/Blood Transfusion Reaction / Comment(s): takes a bit to wake up after aa Past Psychological History: No Psychological Hx Reported Smoking Status: Never smoker Past Alcohol Use History: None Reported Past Drug Use History: None Reported - Past Family History Mother Family Medical History: Diabetes Mellitus Additional Family Medical History / Comment(s): heart valve replacment Father Family Medical History: Cancer Additional Family Medical History / Comment(s): lung cancer Sister(s) Family Medical History: Cancer Additional Family Medical History / Comment(s): breast cancer General Exam - General Exam Comments Initial Comments: GENERAL: Patient is well-developed and well-nourished. Patient is nontoxic and well- hydrated and is in no acute distress. ENT: Neck is soft and supple. No significant lymphadenopathy is noted. Oropharynx is clear. Moist mucous membranes. EYES: The sclera were anicteric and conjunctiva were pink and moist. Extraocular movements were intact and pupils were equal round and reactive to light. Eyelids were unremarkable. PULMONARY: Unlabored respirations. Good breath sounds bilaterally. No audible rales rhonchi or wheezing was noted. CARDIOVASCULAR: There is a regular rate and rhythm without any murmurs gallops or rubs. ABDOMEN: Soft and nontender with normal bowel sounds. No palpable organomegaly was noted. There is no palpable pulsatile mass. SKIN: Skin is clear with no lesions or rashes and otherwise unremarkable. NEUROLOGIC: Patient is alert and oriented x3. Cranial nerves II through XII are grossly intact. Motor and sensory are also intact. Normal speech, volume and content. Symmetrical smile. MUSCULOSKELETAL: Normal extremities with adequate strength and full range of motion. No lower extremity swelling or edema. No calf tenderness. LYMPHATICS: No significant lymphadenopathy is noted PSYCHIATRIC: Normal psychiatric evaluation. Limitations: no limitations Course Vital Signs 01/01/18 01/01/18 01/01/18 09:36 09:48 11:00 Temperature 97.8 F 97.5 F L Pulse Rate 97 94 94 Respiratory 16 16 16 Rate Blood Pressure 118/60 120/73 110/55 O2 Sat by Pulse 97 96 99 Oximetry Medical Decision Making - Medical Decision Making EKG shows a ventricular paced rhythm at 95 bpm [place] interval is 126 QRS is 124 QT interval 348 QTC is 437. Patient's EKG is compared to an old EKG in no acute abnormalities are noted. Patient had 2 episodes of left-sided chest pain while in the emergency department. Patient's chest x-ray showed no acute abnormality. Because of the patient's recent bypass surgery and clinical picture I started the patient on heparin I consult to the primary medical care doctor admitted the patient I consult to cardiology. I wrote admitting orders. I continued heparin Nitropaste and aspirin on the floor. - Lab Data Result diagrams: 01/01/18 09:50 01/01/18 09:50 Lab Results 01/01/18 01/01/18 01/01/18 Range/Units 09:50 09:50 09:50 WBC 7.0 (3.8-10.6) k/uL RBC 4.49 (3.80-5.40) m/uL Hgb 13.1 (11.4-16.0) gm/dL Hct 40.4 (34.0-46.0) % MCV 90.1 (80.0-100.0) fL MCH 29.1 (25.0-35.0) pg MCHC 32.4 (31.0-37.0) g/dL RDW 14.9 (11.5-15.5) % Plt Count 237 (150-450) k/uL Neutrophils % 52 % Lymphocytes % 34 % Monocytes % 9 % Eosinophils % 2 % Basophils % 1 % Neutrophils # 3.6 (1.3-7.7) k/uL Lymphocytes # 2.4 (1.0-4.8) k/uL Monocytes # 0.7 (0-1.0) k/uL Eosinophils # 0.1 (0-0.7) k/uL Basophils # 0.1 (0-0.2) k/uL PT (9.0-12.0) sec INR (<1.2) APTT (22.0-30.0) sec Sodium 143 (137-145) mmol/L Potassium 4.1 (3.5-5.1) mmol/L Chloride 100 (98-107) mmol/L Carbon Dioxide 29 (22-30) mmol/L Anion Gap 14 mmol/L BUN 18 H (7-17) mg/dL Creatinine 0.90 (0.52-1.04) mg/dL Est GFR (CKD-EPI)AfAm 76 (>60 ml/min/1.73 sqM) Est GFR (CKD-EPI)NonAf 66 (>60 ml/min/1.73 sqM) Glucose 132 H (74-99) mg/dL Calcium 9.6 (8.4-10.2) mg/dL Magnesium 1.5 L (1.6-2.3) mg/dL Total Bilirubin 0.7 (0.2-1.3) mg/dL AST 30 (14-36) U/L ALT 29 (9-52) U/L Alkaline Phosphatase 76 (38-126) U/L Total Creatine Kinase 71 (30-135) U/L CK-MB (CK-2) 1.2 (0.0-2.4) ng/mL CK-MB (CK-2) Rel Index 1.7 Troponin I <0.012 (0.000-0.034) ng/mL NT-Pro-B Natriuret Pep pg/mL Total Protein 7.1 (6.3-8.2) g/dL Albumin 4.1 (3.5-5.0) g/dL 01/01/18 01/01/18 Range/Units 09:50 09:50 WBC (3.8-10.6) k/uL RBC (3.80-5.40) m/uL Hgb (11.4-16.0) gm/dL Hct (34.0-46.0) % MCV (80.0-100.0) fL MCH (25.0-35.0) pg MCHC (31.0-37.0) g/dL RDW (11.5-15.5) % Plt Count (150-450) k/uL Neutrophils % % Lymphocytes % % Monocytes % % Eosinophils % % Basophils % % Neutrophils # (1.3-7.7) k/uL Lymphocytes # (1.0-4.8) k/uL Monocytes # (0-1.0) k/uL Eosinophils # (0-0.7) k/uL Basophils # (0-0.2) k/uL PT 10.6 (9.0-12.0) sec INR 1.1 (<1.2) APTT 21.9 L (22.0-30.0) sec Sodium (137-145) mmol/L Potassium (3.5-5.1) mmol/L Chloride (98-107) mmol/L Carbon Dioxide (22-30) mmol/L Anion Gap mmol/L BUN (7-17) mg/dL Creatinine (0.52-1.04) mg/dL Est GFR (CKD-EPI)AfAm (>60 ml/min/1.73 sqM) Est GFR (CKD-EPI)NonAf (>60 ml/min/1.73 sqM) Glucose (74-99) mg/dL Calcium (8.4-10.2) mg/dL Magnesium (1.6-2.3) mg/dL Total Bilirubin (0.2-1.3) mg/dL AST (14-36) U/L ALT (9-52) U/L Alkaline Phosphatase (38-126) U/L Total Creatine Kinase (30-135) U/L CK-MB (CK-2) (0.0-2.4) ng/mL CK-MB (CK-2) Rel Index Troponin I (0.000-0.034) ng/mL NT-Pro-B Natriuret Pep 515 pg/mL Total Protein (6.3-8.2) g/dL Albumin (3.5-5.0) g/dL Critical Care Time Critical Care Time: Yes Total Critical Care Time: 35 Disposition Clinical Impression: Unstable angina pectoris Disposition: ADMITTED IP TO THIS HOSP Referrals: Tamika Arechiga MD [Primary Care Provider] - 1-2 days Time of Disposition: 11:21
[2018-01-01 10:14] LABS: INR 1.1 (<1.2); Partial Thromboplastin Time 21.9 sec (22.0-30.0); Prothrombin Time 10.6 sec (9.0-12.0)
[2018-01-01 10:22] LABS: Albumin 4.1 g/dL (3.5-5.0); Calcium 9.6 mg/dL (8.4-10.2); Magnesium 1.5 mg/dL (1.6-2.3); Potassium 4.1 mmol/L (3.5-5.1); Total Bilirubin 0.7 mg/dL (0.2-1.3); Total Protein 7.1 g/dL (6.3-8.2)
[2018-01-01 10:27] LABS: Creatine Kinase 71 U/L (30-135)
--- NOTE | 2018-01-01 10:32 | XR ---
EXAMINATION TYPE: XR chest 2V DATE OF EXAM: 01/01/2018 COMPARISON: Prior chest 08/05/2017 and PET/CT 04/13/2017 HISTORY: Chest pain TECHNIQUE: Frontal and lateral views of the chest are obtained. FINDINGS: Patient is rotated and post median sternotomy. Intracardiac defibrillator leads are stable . No evident airspace disease, pneumothorax, or pleural effusion. Cardiac mediastinal silhouette, pul monary vascularity and rudi are stable. Generator in the left pectoral region. There are overlying ca rdiac leads. Surgical clips present right upper quadrant. Stable fibrotic changes in the right upper lobe. IMPRESSION: No acute cardiopulmonary process.
[2018-01-01 10:40] LABS: Creatine Kinase MB 1.2 ng/mL (0.0-2.4); Troponin I <0.012 ng/mL (0.000-0.034)
[2018-01-01 10:44] LABS: Basophils # (A) 0.1 k/uL (0-0.2); Basophils % (A) 1 %; Eosinophils # (A) 0.1 k/uL (0-0.7); Eosinophils % (A) 2 %; HCT 40.4 % (34.0-46.0); HGB 13.1 gm/dL (11.4-16.0); Lymphocytes # (A) 2.4 k/uL (1.0-4.8); Lymphocytes % (A) 34 %; MCH 29.1 pg (25.0-35.0); MCHC 32.4 g/dL (31.0-37.0); MCV 90.1 fL (80.0-100.0); Mean Platelet Volume 7.9; Monocytes # (A) 0.7 k/uL (0-1.0); Monocytes % (A) 9 %; Neutrophils # (A) 3.6 k/uL (1.3-7.7); Neutrophils % (A) 52 %; Platelet Count 237 k/uL (150-450); RBC 4.49 m/uL (3.80-5.40); RDW 14.9 % (11.5-15.5)
[2018-01-01] MEDS ORDERED: HEPARIN SODIUM,PORCINE 5,000 UNIT/ML 1 ML VIAL IV ONE (11:20)
[2018-01-01] MEDS ORDERED: NITROGLYCERIN SL TABS 0.4 MG TAB SUBLINGUAL PRN (11:22)
[2018-01-01] MEDS ORDERED: HEPARIN SOD,PORK IN 0.45% NACL 25,000 UNIT in 0.45% NACL 1 500ML.BAG IV SCH (11:30)
[2018-01-01 16:43] LABS: Creatine Kinase 61 U/L (30-135)
[2018-01-01 16:56] LABS: Creatine Kinase MB 1.1 ng/mL (0.0-2.4); Troponin I <0.012 ng/mL (0.000-0.034)
--- NOTE | 2018-01-01 17:37 | P.HPIM ---
History of Present Illness 67-year-old pleasant female came in with complains of on-and-off chest pain lasted 15 seconds sharp in nature radiating to the back and nonradiating and not associated with food nonpleuritic in nature reproducible chest pain nonexertional. Patient denied any fever chills cough not associated diaphoresis shortness of breath lightheadedness. Chest pain is 5/10 in severity patient does have history of breast cancer Adriamycin chemotherapy as well as ischemic cardiomyopathy ejection fraction of 20-25% patient has an AICD in place. Patient denied any shortness of breath orthopnea PND. Patient has nonspecific ST-T wave changes on the EKG which are not new and the patient has normal troponins had a recent stress test separately that was negative. Review of Systems REVIEW OF SYSTEMS: CONSTITUTIONAL: No fever, no malaise, no fatigue. HEENT: No recent visual problems or hearing problems. Denied any sore throat. CARDIOVASCULAR: Noorthopnea, PND, no palpitations, no syncope. PULMONARY: No shortness of breath, no cough, no hemoptysis. GASTROINTESTINAL: No diarrhea, no nausea, no vomiting, no abdominal pain. Normoactive bowel sounds. NEUROLOGICAL: No headaches, no weakness, no numbness. HEMATOLOGICAL: Denies any bleeding or petechiae. GENITOURINARY: Denies any burning micturition, frequency, or urgency. MUSCULOSKELETAL/RHEUMATOLOGICAL: Denies any joint pain, swelling, or any muscle pain. ENDOCRINE: Denies any polyuria or polydipsia. The rest of the 14-point review of systems is negative. Past Medical History Past Medical History: Asthma, Coronary Artery Disease (CAD), Cancer, GERD/Reflux , Hypertension, Myocardial Infarction ([place]), Pneumonia, Thyroid Disorder Additional Past Medical History / Comment(s): NSTEMI in September 2016 with subsequent coronary artery bypass grafting x 1, BRAR to the LAD, in October 2016. Severe ischemic cardiomyopathy with estimated ejection fraction 25-30%. Pending AICD placement. Admitted for hypotension in 11-13-16. Remote history of right Breast cancer stage 4(1993) had mastectomy and radiation/chemo,had genetic testing done,was poisitve for BRCA GENE so had elective lt masectomy done. Right lung nodule cancerous/lymphoma was removed at [facility] and post operative received 4 chemo tx) , pne/sepsis Last Myocardial Infarction Date:: History of Any Multi-Drug Resistant Organisms: C-DIFF Date of last positivie culture/infection: per pt approx 2 months ago( ?end of october) MDRO Source:: stool Past Surgical History: Appendectomy, Breast Surgery, Cholecystectomy, Coronary Bypass/CABG, Heart Catheterization, Hysterectomy, Tubal Ligation Additional Past Surgical History / Comment(s): LT BREAST WAS POSTIVE FOR CANCER STAGE 4 cancer-had masectomy. 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 lt cataract removed, 10-07-16 CABG( 1 VESSEL), LT INTERNAL MAMMARY ARTERY TO LEFT ANT DESCENDING ARTERY. EVAN OOPHERECTOMY(PROPHYLATIC), LUNG NODULE REMOVED(CANCEROUS-lymhoma- AND RECEIVED SEVERAL CHEMO tx, several venous access devices since removed. Past Anesthesia/Blood Transfusion Reactions: No Reported Reaction Additional Past Anesthesia/Blood Transfusion Reaction / Comment(s): takes a bit to wake up after aa Smoking Status: Never smoker - Past Family History Mother Family Medical History: Diabetes Mellitus Additional Family Medical History / Comment(s): heart valve replacment Father Family Medical History: Cancer Additional Family Medical History / Comment(s): lung cancer Sister(s) Family Medical History: Cancer Additional Family Medical History / Comment(s): breast cancer Medications and Allergies Home Medications Medication Instructions Recorded Confirmed Type Omeprazole 40 mg PO DAILY 12/17/16 01/01/18 History Clopidogrel [Plavix] 75 mg PO DAILY tab 01/01/17 01/01/18 Rx Digoxin [Lanoxin] 125 mcg PO DAILY tab 01/01/17 01/01/18 Rx Lisinopril [Zestril] 1.25 mg PO DAILY 01/23/17 01/01/18 History Metoprolol Tartrate [Lopressor] 50 mg PO DAILY 01/23/17 01/01/18 History Aspirin 325 mg PO DAILY 08/04/17 01/01/18 History Furosemide [Lasix] 40 mg PO DAILY 08/04/17 01/01/18 History Spironolactone [Aldactone] 12.5 mg PO DAILY 08/04/17 01/01/18 History Atorvastatin [Lipitor] 40 mg PO DAILY 01/01/18 01/01/18 History L.acidoph,Paracasei, B.lactis 1 cap PO TID 01/01/18 01/01/18 History [Probiotic] Levothyroxine Sodium [Synthroid] 50 mcg PO DAILY 01/01/18 01/01/18 History Allergies Allergy/AdvReac Type Severity Reaction Status Date / Time nickel Allergy Rash/Hives Verified 01/01/18 10:00 Physical Exam Vitals: Vital Signs Temp Pulse Resp BP Pulse Ox 01/01/18 17:06 97.7 F 96 18 137/58 99 01/01/18 14:54 97 16 114/58 97 01/01/18 13:58 100 14 112/57 98 01/01/18 13:15 100 14 113/57 100 01/01/18 11:48 96 18 138/67 97 01/01/18 11:00 94 16 110/55 99 01/01/18 09:48 97.5 F L 94 16 120/73 96 01/01/18 09:36 97.8 F 97 16 118/60 97 Intake and Output 01/01/18 01/01/18 01/01/18 06:59 14:59 22:59 Other: Weight 72.121 kg PHYSICAL EXAMINATION: GENERAL: The patient is alert and oriented x3, not in any acute distress. Well developed, well nourished. HEENT: Pupils are round and equally reacting to light. EOMI. No scleral icterus. No conjunctival pallor. Normocephalic, atraumatic. No pharyngeal erythema. No thyromegaly. CARDIOVASCULAR: S1 and S2 present. No murmurs, rubs, or gallops. PULMONARY: Chest is clear to auscultation, no wheezing or crackles. ABDOMEN: Soft, nontender, nondistended, normoactive bowel sounds. No palpable organomegaly. MUSCULOSKELETAL: No joint swelling or deformity. EXTREMITIES: No cyanosis, clubbing, or pedal edema. NEUROLOGICAL: Gross neurological examination did not reveal any focal deficits. SKIN: No rashes. Results CBC & Chem 7: 01/01/18 09:50 01/01/18 09:50 Labs: Abnormal Lab Results - Last 24 Hours (Table) 01/01/18 01/01/18 Range/Units 09:50 09:50 APTT 21.9 L (22.0-30.0) sec BUN 18 H (7-17) mg/dL Glucose 132 H (74-99) mg/dL Magnesium 1.5 L (1.6-2.3) mg/dL Assessment and Plan Plan: -Chest pain: Patient had a recent stressors we'll rule out acute coronary syndromes patient appears to musculoskeletal chest pain which is reproducible cardiology will evaluate the patient. 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
[2018-01-01] MEDS: NITROGLYCERIN OINT 1 INCH/GM PACKET TOPICAL SCH (17:54)
[2018-01-01] MEDS: MAGNESIUM SULFATE-D5W PMX 1 GM in DEXTROSE/WATER 1 100ML.BAG IVPB SCH ×2 (18:09→22:01)
[2018-01-01] MEDS ORDERED: FUROSEMIDE 40 MG TAB PO STA (18:14)
[2018-01-01] MEDS ORDERED: CLOPIDOGREL 75 MG TAB PO STA (18:14)
[2018-01-01] MEDS ORDERED: LISINOPRIL 2.5 MG TAB PO STA (18:14)
[2018-01-01] MEDS ORDERED: SPIRONOLACTONE 25 MG TAB PO STA (18:15)
[2018-01-01] MEDS ORDERED: METOPROLOL TARTRATE 50 MG TAB PO STA (18:15)
[2018-01-01] MEDS ORDERED: PANTOPRAZOLE 40 MG TABLET PO STA (18:16)
[2018-01-01] MEDS ORDERED: DIGOXIN 125 MCG TAB PO ONE (18:30)
[2018-01-01] MEDS ORDERED: ACETAMINOPHEN TAB 500 MG TAB PO PRN (22:02)
[2018-01-01] MEDS ORDERED: TEMAZEPAM 15 MG CAP PO PRN (22:03)
--- NOTE | 2018-01-01 22:22 | CONS ---
CONSULTATION This is a 67-year-old lady who is a patient of Dr. Coleman who was initially seen in September 2016 when she presented with a [id number] MD type picture, underwent a cardiac cath which revealed ostial LAD disease, and she went on to have a single-vessel bypass to the LAD with a BRAR. Post-bypass course was significant for some LV dysfunction and ejection fraction of less than 20%, and therefore she went on to have in December of 2016 a biventricular ICD performed by Dr. Garcia. Since then she has done well on medical therapy and apparently as recently as August or September had a stress test which she thinks was unremarkable. However, she came in because of a pain just above her ICD site. Pain is more or less constant, an achy feeling to the left arm. The quality of pain seems musculoskeletal. She is resting comfortably without symptoms at this time. She has had two sets of troponins, both of which are unremarkable. EKG revealed a sinus mechanism with atrial sensed and ventricular paced rhythm. She is asymptomatic at the time of my evaluation. PAST MEDICAL HISTORY: 1. CAD with her initial presentation in September 2016 with chest pain, left bundle and [id number] MD. She went on to have ischemic cardiomyopathy, had a single- vessel BRAR to LAD bypass followed by a biventricular ICD in December of 2016. 2. Hypertension. 3. Hyperlipidemia. 4. No evidence of any diabetes mellitus. MEDICATIONS AT HOME: 1. Zestril. 2. Aldactone. 3. Omeprazole. 4. Lopressor. 5. Synthroid. 6. Lasix 40 mg daily. 7. Lanoxin 125 mcg daily. 8. Plavix 75 mg daily. 9. Aspirin will be reduced to 81 mg daily here. 10.Lipitor 40 mg daily. PHYSICAL EXAMINATION: Blood pressure is 118/70. Pulse rate is about 90 per minute, regular. HEENT: Unremarkable. Fundus was not examined by me. NECK: Supple. There is no JVD. I do not hear a carotid bruit. Heart exam reveals a soft ejection systolic murmur at the base with preserved second heart sound. Lungs are clear. ABDOMEN: Soft, nontender. Lower extremities reveal normal pulses. No edema. Central nervous system is normal. LABORATORY DATA: Two sets of troponins are normal. BNP is normal. IMPRESSION: 1. Musculoskeletal pain. 2. History of coronary artery disease with prior single-vessel bypass surgery, ischemic cardiomyopathy and ICD. 3. Hypertension. 4. Hyperlipidemia. RECOMMENDATIONS: I am recommending that we reduce the aspirin to 81 mg daily, resume her home medications, increase activity. If the third troponin is normal, we will discontinue IV heparin, and if she has no further symptoms, she will be discharged. She has not had any significant arrhythmia and her pain seems musculoskeletal. I will also review the stress test of the office. Thank you very much for the consult. NIKOS / MINA: [id number] /
[2018-01-01 23:14] LABS: Creatine Kinase 59 U/L (30-135)
[2018-01-01 23:29] LABS: Creatine Kinase MB 1.2 ng/mL (0.0-2.4); Troponin I <0.012 ng/mL (0.000-0.034)
[2018-01-02] MEDS: NITROGLYCERIN OINT 1 INCH/GM PACKET TOPICAL SCH ×2 (02:28→05:26)
[2018-01-02 04:16] VITALS: RESP 18
[2018-01-02] MEDS ORDERED: LEVOTHYROXINE 50 MCG TAB PO SCH (06:30)
[2018-01-02] MEDS ORDERED: PANTOPRAZOLE 40 MG TABLET PO SCH (07:30)
[2018-01-02 08:20] LABS: Magnesium 1.9 mg/dL (1.6-2.3)
[2018-01-02] MEDS ORDERED: FUROSEMIDE 40 MG TAB PO SCH (09:00)
[2018-01-02] MEDS ORDERED: ASPIRIN 325 MG TAB PO SCH ×2 (09:00)
[2018-01-02] MEDS ORDERED: LISINOPRIL 2.5 MG TAB PO SCH (09:00)
[2018-01-02] MEDS ORDERED: ATORVASTATIN 40 MG TAB PO SCH (09:00)
[2018-01-02] MEDS ORDERED: SPIRONOLACTONE 25 MG TAB PO SCH (09:00)
[2018-01-02] MEDS ORDERED: CLOPIDOGREL 75 MG TAB PO SCH (09:00)
[2018-01-02] MEDS ORDERED: ASPIRIN 81 MG PO SCH (09:00)
[2018-01-02] MEDS ORDERED: HEPARIN SODIUM,PORCINE 5,000 UNIT/ML 1 ML VIAL SQ SCH (09:00)
[2018-01-02] MEDS ORDERED: DIGOXIN 125 MCG TAB PO SCH (09:00)
[2018-01-02] MEDS ORDERED: METOPROLOL TARTRATE 50 MG TAB PO SCH (09:00)
[2018-01-02 09:53] VITALS: BP 124/65; PULSE 96; TEMP 97.7
--- NOTE | 2018-01-02 15:14 | P.CNPUL ---
History of Present Illness Consult date: 01/02/18 Requesting physician: Kristin Saavedra Reason for consult: chest pain Chief complaint: Left upper chest wall pain History of present illness: Perla is a 67-year-old white female patient that follows with Dr. Arechiga for primary care services, presented to the emergency department on 01/01/2018 at 0953 in the morning with complaints of left upper chest wall pain, intermittent episodes, that were not preceded by any exertion. She describes the discomfort as dull pain, usually 5 out of 10 in intensity, not associated with dyspnea, nausea, vomiting, or diaphoresis. She states she had episode of upper respiratory infection a few weeks ago, which was self-limiting, and mild, and has completely resolved without complications. Patient denied any fever, chills , shortness of breath, chest congestion, cough, or sputum production. The patient has a past medical history of coronary artery disease, status post 1 vessel coronary artery bypass grafting in 2017, ischemic cardiomyopathy with an EF of 25-30%, status post Bi-V pacemaker/AICD device placement. Patient also has a BRCA2 gene mutation, and had a metastatic breast cancer, status post bilateral mastectomy followed by bone marrow transplantation 25 years ago, and followed by chemotherapy and the patient has been in remission since. In addition, she had left upper lobe nodule resected and biopsied at [facility] chief was positive for B-lymphoma, and this was treated with 4 rounds of chemotherapy. She was thought to have bronchial asthma, however further testing in the pulmonary office showed moderate obstructive airway disease with no significant post bronchodilator improvement, FEV1 of 66% of predicted on pre- bronchodilator and 65% on the postbronchodilator. Other medical history includes GERD/reflux, hypertension, previous AK, pneumonia, hypothyroidism, chronic lymphedema in the left arm. EKG showed paced rhythm at a rate of 95 BPM , with nonspecific ST and T wave depression, that were previously noted on previous EKGs. Cardiac enzymes and troponins were negative 3, patient was seen in consultation by cardiology. Patient had an exercise stress test in August [address] Coleman at the cardiology office which was reportedly negative. Cardiology felt the pain was musculoskeletal in nature, and has cleared the patient for discharge home today. From pulmonary standpoint patient denies any pulmonary complaints at this time. Vital signs are stable, she is afebrile, denies any distress. Review of Systems All systems: negative Constitutional: Denies chills, Denies fever Eyes: denies blurred vision, denies pain Ears, nose, mouth and throat: Denies headache, Denies sore throat Breasts: absent: as per HPI Cardiovascular: Denies chest pain, Denies shortness of breath Respiratory: Denies cough Gastrointestinal: Denies abdominal pain, Denies diarrhea, Denies nausea, Denies vomiting Genitourinary: Denies dysuria, Denies hematuria Musculoskeletal: Denies myalgias Integumentary: Denies pruritus, Denies rash Neurological: Denies numbness, Denies weakness Psychiatric: Denies anxiety, Denies depression Endocrine: Denies fatigue, Denies weight change Past Medical History Past Medical History: Asthma, Coronary Artery Disease (CAD), Cancer, GERD/Reflux , Hypertension, Myocardial Infarction (AK), Pneumonia, Thyroid Disorder Additional Past Medical History / Comment(s): NSTEMI in September 2016 with subsequent coronary artery bypass grafting x 1, BRAR to the LAD, in October 2016. Severe ischemic cardiomyopathy with estimated ejection fraction 25-30%. Pending AICD placement. Admitted for hypotension in 11-13-16. Remote history of left Breast cancer stage 4(1994) had mastectomy and radiation/chemo,had genetic testing done,was poisitve for BRCA 2 gene mutation, so had elective right mastectomy done. Left upper lobe lung nodule positive for B-lymphoma was biopsied at [facility], and left upper lobe was resected by Dr. Salgado. She received 4 chemo tx, pne/sepsis Last Myocardial Infarction Date:: History of Any Multi-Drug Resistant Organisms: C-DIFF Date of last positivie culture/infection: per pt approx 2 months ago( ?end of october) MDRO Source:: stool Past Surgical History: Appendectomy, Breast Surgery, Cholecystectomy, Coronary Bypass/CABG, Heart Catheterization, Hysterectomy, Tubal Ligation Additional Past Surgical History / Comment(s): LT BREAST WAS POSTIVE FOR CANCER STAGE 4 cancer-had masectomy. 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 lt cataract removed, 10-07-16 CABG( 1 VESSEL), LT INTERNAL MAMMARY ARTERY TO LEFT ANT DESCENDING ARTERY. EVAN OOPHERECTOMY(PROPHYLATIC), LUNG NODULE REMOVED(CANCEROUS-lymhoma- AND RECEIVED SEVERAL CHEMO tx, several venous access devices since removed. Past Anesthesia/Blood Transfusion Reactions: No Reported Reaction Additional Past Anesthesia/Blood Transfusion Reaction / Comment(s): takes a bit to wake up after aa Smoking Status: Never smoker - Past Family History Mother Family Medical History: Diabetes Mellitus Additional Family Medical History / Comment(s): heart valve replacment Father Family Medical History: Cancer Additional Family Medical History / Comment(s): lung cancer Sister(s) Family Medical History: Cancer Additional Family Medical History / Comment(s): breast cancer Medications and Allergies Home Medications Medication Instructions Recorded Confirmed Type Omeprazole 40 mg PO DAILY 12/17/16 01/01/18 History Clopidogrel [Plavix] 75 mg PO DAILY tab 01/01/17 01/01/18 Rx Digoxin [Lanoxin] 125 mcg PO DAILY tab 01/01/17 01/01/18 Rx Lisinopril [Zestril] 1.25 mg PO DAILY 01/23/17 01/01/18 History Metoprolol Tartrate [Lopressor] 50 mg PO DAILY 01/23/17 01/01/18 History Furosemide [Lasix] 40 mg PO DAILY 08/04/17 01/01/18 History Spironolactone [Aldactone] 12.5 mg PO DAILY 08/04/17 01/01/18 History Atorvastatin [Lipitor] 40 mg PO DAILY 01/01/18 01/01/18 History L.acidoph,Paracasei, B.lactis 1 cap PO TID 01/01/18 01/01/18 History [Probiotic] Levothyroxine Sodium [Synthroid] 50 mcg PO DAILY 01/01/18 01/01/18 History Aspirin 81 mg PO DAILY chew 01/02/18 Rx Allergies Allergy/AdvReac Type Severity Reaction Status Date / Time nickel Allergy Rash/Hives Verified 01/01/18 10:00 Physical Exam Vitals: Vital Signs Temp Pulse Pulse Resp BP BP Pulse Ox 01/02/18 04:00 97.9 F 90 18 100/52 97 01/02/18 03:21 17 01/02/18 00:00 17 01/01/18 23:36 98.4 F 94 17 114/56 95 01/01/18 20:00 16 01/01/18 19:49 98.7 F 102 H 16 134/66 95 01/01/18 17:51 97.8 F 102 H 18 126/67 96 01/01/18 17:06 97.7 F 96 18 137/58 99 01/01/18 14:54 97 16 114/58 97 01/01/18 13:58 100 14 112/57 98 01/01/18 13:15 100 14 113/57 100 01/01/18 11:48 96 18 138/67 97 01/01/18 11:00 94 16 110/55 99 01/01/18 09:48 97.5 F L 94 16 120/73 96 Intake and Output 01/01/18 01/02/18 01/02/18 22:59 06:59 14:59 Intake Total 480 Balance 480 Intake: Oral 480 Other: Voiding Method Toilet Toilet # Voids 1 2 Weight 74.3 kg GENERAL EXAM: Alert, pleasant 67-year-old white female, comfortable in no apparent distress. HEAD: Normocephalic/atraumatic. EYES: Normal reaction of pupils, equal size. Conjunctiva pink, sclera white. NOSE: Clear with pink turbinates. THROAT: No erythema or exudates. NECK: No masses, no JVD, no thyroid enlargement, no adenopathy. CHEST: No chest wall deformity. Symmetrical expansion. Postop bilateral mastectomy changes noted. Patient has a left upper chest Bi-V pacemaker/AICD LUNGS: Equal air entry with no crackles, wheeze, rhonchi or dullness. CVS: Regular rate and rhythm, normal S1 and S2, no gallops, no rubs. Patient has a soft systolic murmur loudest at the left sternal border second intercostal space. ABDOMEN: Soft, nontender. No hepatosplenomegaly, normal bowel sounds, no guarding or rigidity. EXTREMITIES: No clubbing, no cyanosis, 2+ pulses and upper and lower extremities. She has chronic lymphedema and swelling in the left arm post mastectomy MUSCULOSKELETAL: Muscle strength and tone normal. SPINE: No scoliosis or deformity SKIN: No rashes CENTRAL NERVOUS SYSTEM: Alert and oriented -3. No focal deficits, tone is normal in all 4 extremities. PSYCHIATRIC: Alert and oriented -3. Appropriate affect. Intact judgment and insight. Results - Laboratory Findings CBC and BMP: 01/01/18 09:50 01/01/18 09:50 PT/INR, D-dimer PT 10.6 sec (9.0-12.0) 01/01/18 09:50 INR 1.1 (<1.2) 01/01/18 09:50 Abnormal lab findings: Abnormal Labs 01/01/18 01/01/18 01/01/18 00:01 09:50 09:50 APTT 30.6 H 21.9 L BUN 18 H Glucose 132 H Magnesium 1.5 L Triglycerides HDL Cholesterol 01/02/18 06:52 APTT BUN Glucose Magnesium Triglycerides 234 H HDL Cholesterol 31 L - Diagnostic Findings Chest x-ray: report reviewed Additional studies: Twelve-lead EKG was reviewed Assessment and Plan Plan: Assessment: #1. Left upper chest pain, thought to be musculoskeletal in nature. 3 sets of cardiac enzymes and troponins were negative this admission, no acute ST or T- wave changes seen on EKG. Patient was seen by cardiology. Had a recent stress test in August 2017 at the cardiology office which was negative. #2. History of bronchial asthma, although the PFT done at the pulmonary office did not show much reversibility, did show moderate obstruction with FEV1 of 66% of predicted. #3. Coronary artery disease, status post coronary artery bypass grafting 1 vessel with BRAR to LAD in October 2016 #4. Ischemic cardiomyopathy with ejection fraction of 25-30%, status post Bi-V pacemaker/AICD placement in December 2016 #5. History of left breast cancer diagnosed in 1994 given CMP adjuvant therapy with metastases to L SC and Mediastinal LN in 1996, treated with CAF chemotherapy followed by stem cell transplant at [facility]. Patient was found to be positive for BRCA2 gene mutation, and has electively undergone right breast mastectomy and bilateral oophorectomies #6. Diffuse large B-cell lymphoma biopsied from the left upper lobe nodule, status post left upper lobe resection at [facility] and treated with 4 treatments of chemo #7. Essential hypertension #8. Hypothyroidism #9. GERD/reflux #10. Chronic lymphedema of the left arm Plan: Patient still has intermittent episodes of left upper chest wall pain which lasts about 10 seconds, and is not brought on by any exertion, is not associated with any dyspnea, nausea, vomiting or diaphoresis. Her vitals are stable, she denies any pulmonary symptoms. Lung sounds are clear. She has been cleared by cardiology for discharge home today. From pulmonary standpoint she is stable for discharge as well. She has a follow-up appointment with Dr. Arechiga in the office on January 15, which she can keep. I performed a history & physical examination of the patient and discussed their management with my nurse practitioner, Saskia Murillo. I reviewed the nurse practitioner's note and agree with the documented findings and plan of care. Lung sounds are clear. The findings and the impression was discussed with the patient. I attest to the documentation by the nurse practitioner. Time with Patient: Greater than 30
--- NOTE | 2018-01-02 20:36 | PN ---
PROGRESS NOTE Mrs. Perla Kim is a 67-year-old lady with ischemic cardiomyopathy, previous bypass surgery and a Bi-V ICD. She is doing well this morning. Her pain in her left anterior chest has resolved. Pain seems musculoskeletal. In September, she had a stress Cardiolite scan which revealed predominantly fixed defect without reversibility and I have advised her that we will pursue medical therapy. Her pain is atypical and musculoskeletal in nature. The patient will be sent home today on same medications. Her vital signs are stable. There is no JVD. S1, S2 heard normally. Lungs are clear. Abdomen, lower extremity exam is unchanged. Patient will follow up with Dr. Coleman on within 7-14 days. MMODL / IJN: [id number] /
--- NOTE | 2018-01-02 21:31 | ECHOF ---
Referral Reason:[place] MEASUREMENTS -------- HEIGHT: 162.6 cm WEIGHT: 73.9 kg BP: 100/52 RVIDd: 3.5 cm (< 3.3) IVSd: 1.2 cm (0.6 - 1.1) LVIDd: 4.4 cm (3.9 - 5.3) LVPWd: 1.2 cm (0.6 - 1.1) IVSs: 1.3 cm LVIDs: 3.8 cm LVPWs: 1.4 cm LAESV Index (A-L): 20.07 ml/m Ao Diam: 2.9 cm (2.0 - 3.7) AV Cusp: 1.2 cm (1.5 - 2.6) LA Diam: 3.0 cm (2.7 - 3.8) MV E Blaine: 0.93 m/s MV DecT: 194 ms MV A Blaine: 0.03 m/s MV E/A Ratio: 33.03 AV maxP.67 mmHg AV meanP.91 mmHg AR PHT: 418 ms RAP: 5.00 mmHg RVSP: 27.41 mmHg FINDINGS -------- Sinus rhythm. Pacerwire seen in RV and RA. This was a technically adequate study. The left ventricular size is normal. There is mild concentric left ventricular hypertrophy. Overa ll left ventricular systolic function is moderate-severely impaired with, an EF between 30 - 35 %. Basal anterior LV wall motion is hypokinetic. Basal lateral LV wall motion is hypokinetic. Basa l posterior LV wall motion is hypokinetic. Mid anterior LV wall motion is hypokinetic. Mid late ral LV wall motion is hypokinetic. Mid inferior LV wall motion is hypokinetic. Apical inferior LV wall motion is hypokinetic. Apical septum LV wall motion is hypokinetic. The right ventricle is mildly enlarged. Normal LA size by volume 22+/-6 ml/m2. Electronic pacemaker lead seen in the right ventricular cavity. RA appears enlarged. 3ml of Lumason was utilized for enhancement of images. Aortic valve is trileaflet and is mildly thickened. There is moderate aortic regurgitation. The a ortic pressure half-time by doppler is 418ms. There is mild aortic stenosis present. Peak/mean gr adient across the Aortic Valve is 17.67mmHg / 10.91mmHg. The mitral valve leaflets are mildly thickened. Mild mitral regurgitation is present. Mild tricuspid regurgitation present. The pulmonic valve was not well visualized. The aortic root size is normal. Normal inferior vena cava with normal inspiratory collapse consistent with estimated right atrial pre ssure of 5 mmHg. There is no pericardial effusion. CONCLUSIONS -------- 1. Sinus rhythm. 2. Pacerwire seen in RV and RA. 3. This was a technically adequate study. 4. The left ventricular size is normal. 5. There is mild concentric left ventricular hypertrophy. 6. Overall left ventricular systolic function is moderate-severely impaired with, an EF between 30 - 35 %. 7. Basal anterior LV wall motion is hypokinetic. 8. Basal lateral LV wall motion is hypokinetic. 9. Basal posterior LV wall motion is hypokinetic. 10. Mid anterior LV wall motion is hypokinetic. 11. Mid lateral LV wall motion is hypokinetic. 12. Mid inferior LV wall motion is hypokinetic. 13. Apical inferior LV wall motion is hypokinetic. 14. Apical septum LV wall motion is hypokinetic. 15. The right ventricle is mildly enlarged. 16. Normal LA size by volume 22+/-6 ml/m2. 17. Electronic pacemaker lead seen in the right ventricular cavity. 18. RA appears enlarged. 19. 3ml of Lumason was utilized for enhancement of images. 20. Aortic valve is trileaflet and is mildly thickened. 21. There is moderate aortic regurgitation. 22. There is mild aortic stenosis present. 23. Peak/mean gradient across the Aortic Valve is 17.67mmHg / 10.91mmHg. 24. The mitral valve leaflets are mildly thickened. 25. Mild mitral regurgitation is present. 26. Mild tricuspid regurgitation present. 27. The pulmonic valve was not well visualized. 28. The aortic root size is normal. 29. There is no pericardial effusion. LITIGATION EXAMINER: Augustine Steinberg RDCS
--- NOTE | 2018-01-03 08:58 | DS ---
DISCHARGE SUMMARY DATE OF SERVICE: 01/02/2018. FINAL DIAGNOSES: 1. Chest pain possibly musculoskeletal, myocardial infarction ruled out. 2. History of congestive heart failure with chronic systolic dysfunction. 3. History of coronary artery disease, coronary artery bypass grafting. 4. Hypertension. 5. Hyperlipidemia. 6. History of breast cancer. 7. Hypothyroidism. DISCHARGE DISPOSITION: The patient will be discharged in stable condition with guarded prognosis. Cardiology cleared the patient for discharge. HISTORY OF PRESENT ILLNESS: This 67-year-old woman with a past medical history of multiple medical problems admitted with chest pain, myocardial infarction ruled out. Cardiology saw the patient and recommended outpatient followup. Pulmonary also the patient. On exam, vitals are stable. CARDIOVASCULAR; S1 and S2 muffled. ABDOMEN: Soft. NERVOUS SYSTEM: No focal deficits. DISCHARGE ADVICE: 1. Diet is cardiac. 2. Activity limited until followup. 3. Follow up with Dr. Arechiga in 2 to 3 days. 4. Follow up with Cardiology as recommended. Medications are: 1. Aspirin 81 mg p.o. daily. 2. Lipitor 40 mg daily. 3. Plavix 75 mg p.o. daily. 4. Lanoxin 125 mcg p.o. daily. 5. Lasix 40 mg p.o. daily. 6. Probiotic 1 p.o. t.i.d. 7. Synthroid 50 mcg p.o. daily. 8. Zestril 1.25 mg daily. 9. Lopressor 50 mg p.o. daily. 10.Omeprazole 40 mg p.o. daily. 11.Aldactone 12.5 mg p.o. daily. Once again, the patient will be discharged in stable condition with guarded prognosis. MMODL / IJN: [id number] /
== END 2018-01-02 12:10 | disposition home or self-care (01) ==
LOC: EC 09:34 → 3OBS 11:22
PROVIDERS: ADMIT Hospitalist; ATTEND Hospitalist
DX: R07.89 Other chest pain (principal); I11.0 Hypertensive heart disease with heart failure; I50.22 Chronic systolic (congestive) heart failure; I25.5 Ischemic cardiomyopathy; I25.110 Atherosclerotic heart disease of native coronary artery with unstable angina pectoris; Z95.1 Presence of aortocoronary bypass graft; E03.9 Hypothyroidism, unspecified; E78.5 Hyperlipidemia, unspecified; K21.9 Gastro-esophageal reflux disease without esophagitis; J45.909 Unspecified asthma, uncomplicated; I89.0 Lymphedema, not elsewhere classified; I25.2 Old myocardial infarction; Z94.84 Stem cells transplant status; Z94.81 Bone marrow transplant status; Z79.82 Long term (current) use of aspirin; Z79.899 Other long term (current) drug therapy; Z95.810 Presence of automatic (implantable) cardiac defibrillator; Z79.02 Long term (current) use of antithrombotics/antiplatelets; Z91.048 Other nonmedicinal substance allergy status; Z90.722 Acquired absence of ovaries, bilateral; Z90.13 Acquired absence of bilateral breasts and nipples; Z92.3 Personal history of irradiation; Z92.21 Personal history of antineoplastic chemotherapy; Z85.3 Personal history of malignant neoplasm of breast; Z85.72 Personal history of non-Hodgkin lymphomas; Z87.01 Personal history of pneumonia (recurrent); Z16.24 Resistance to multiple antibiotics; Z83.3 Family history of diabetes mellitus; Z80.1 Family history of malignant neoplasm of trachea, bronchus and lung; Z80.3 Family history of malignant neoplasm of breast
CPT/HCPCS: 96366 ×6; 96376 ×2; 96365 ×2; 99291 ×2; 93005 ×2; 96367; 36415; 83880; 80061; 80053; 82550; 82553; 83735 ×2; 84484; 85025; 85610; 85730; 71046; G0378 ×2; C8929; J1644 ×2; J3475; Q9950; 93306

== ENCOUNTER → 2019-01-27 | Outpatient (CLI) | payer MEDICARE, BC ==
[2019-01-27 11:34] LABS: Basophils % (A) 0 %; Eosinophils # (A) 0.2 k/uL (0-0.7); Eosinophils % (A) 3 %; HCT 40.8 % (34.0-46.0); HGB 13.4 gm/dL (11.4-16.0); Lymphocytes # (A) 2.2 k/uL (1.0-4.8); Lymphocytes % (A) 26 %; MCH 30.8 pg (25.0-35.0); MCHC 32.9 g/dL (31.0-37.0); MCV 93.6 fL (80.0-100.0); Mean Platelet Volume 7.6; Monocytes # (A) 0.6 k/uL (0-1.0); Monocytes % (A) 7 %; Neutrophils # (A) 5.2 k/uL (1.3-7.7); Neutrophils % (A) 61 %; Platelet Count 208 k/uL (150-450); RBC 4.36 m/uL (3.80-5.40); RDW 13.1 % (11.5-15.5); WBC 8.5 k/uL (3.8-10.6)
[2019-01-27 16:35] LABS: Albumin 4.5 g/dL (3.80-4.90); Albumin/Globulin Ratio 2.37 (1.60-3.17); Anion Gap 8.9 mmol/L (4.00-12.00); Calcium 9.4 mg/dL (8.7-10.3); Carbon Dioxide 31.1 mmol/L (21.6-31.8); Globulin 1.9 g/dL (1.6-3.3); LDL Cholesterol,Calculated 64.2 mg/dL (0.0-131.0); Potassium 4.3 mmol/L (3.5-5.5); Total Bilirubin 0.6 mg/dL (0.2-1.2); Total Protein 6.4 g/dL (6.2-8.2); VLDL Calculation 41.8 mg/dL (5.00-40.00)
[2019-01-27 16:43] LABS: T4, Free (Free Thyroxine) 1.2 ng/dL (0.80-1.80)
[2019-01-27 18:36] LABS: Hemoglobin A1C 8.8 % (4.0-6.0)
== END | disposition home or self-care (01) ==
LOC: LABWHC1 10:39
PROVIDERS: ATTEND Internal Medicine
DX: E78.5 Hyperlipidemia, unspecified (principal); E11.9 Type 2 diabetes mellitus without complications; I10 Essential (primary) hypertension
CPT/HCPCS: 36415; 80053; 80061; 83036; 84439; 84443; 85025

== ENCOUNTER 2019-05-09 21:22 | Inpatient (IN) | payer MEDICARE, BC ==
[2019-05-09] MEDS ORDERED: SODIUM CHLORIDE 0.9% 1,000 ML IV STA (21:39)
--- NOTE | 2019-05-09 21:54 | XR ---
EXAMINATION TYPE: XR foot complete LT DATE OF EXAM: 05/09/2019 CLINICAL HISTORY: Left foot pain. Second digit redness and swelling. TECHNIQUE: Frontal, lateral, and oblique images of the left foot are obtained. COMPARISON: None FINDINGS: There is no acute fracture/dislocation evident in the left foot. Moderate narrowing second PIP joint. Spurring superior calcaneus at the distal Achilles tendon is seen. Moderate size inferior calcaneal spur is noted. Mild diffuse subcutaneous edema. More focal mild/moderate swelling involvin g second toe without periosteal reaction or cortical destruction. IMPRESSION: As above.
[2019-05-09 22:40] LABS: Basophils # (A) 0.1 k/uL (0-0.2); Basophils % (A) 0 %; Eosinophils # (A) 0.1 k/uL (0-0.7); Eosinophils % (A) 1 %; HCT 35.3 % (34.0-46.0); HGB 11.8 gm/dL (11.4-16.0); Lymphocytes # (A) 2.6 k/uL (1.0-4.8); Lymphocytes % (A) 21 %; MCH 30.9 pg (25.0-35.0); MCHC 33.4 g/dL (31.0-37.0); MCV 92.6 fL (80.0-100.0); Mean Platelet Volume 7.8; Monocytes # (A) 0.7 k/uL (0-1.0); Monocytes % (A) 6 %; Neutrophils # (A) 8.7 k/uL (1.3-7.7); Neutrophils % (A) 70 %; Platelet Count 250 k/uL (150-450); RBC 3.81 m/uL (3.80-5.40); RDW 14.3 % (11.5-15.5); WBC 12.4 k/uL (3.8-10.6)
[2019-05-09 22:51] LABS: Albumin 4.2 g/dL (3.5-5.0); Calcium 8.3 mg/dL (8.4-10.2); Phosphorus 3.7 mg/dL (2.5-4.5); Total Bilirubin 0.5 mg/dL (0.2-1.3)
--- NOTE | 2019-05-09 22:56 | ED ---
Skin/Abscess/FB HPI - General Chief complaint: Skin/Abscess/Foreign Body Stated complaint: Foot pain Time Seen by Provider: 05/09/19 21:38 Source: patient, family, RN notes reviewed, old records reviewed Mode of arrival: ambulatory Limitations: no limitations - History of Present Illness Initial comments: This is a 69-year-old female the ER for evaluation. Patient resents today for evaluation regards to left toe pain left foot pain. Patient has swelling and erythema of anterior toe. Significant erythema warmth. No fevers. History of significant cellulitis and sepsis. Patient concern for worsening infection MD complaint: rash -: days(s) Location: LLE, L foot Severity: moderate Severity scale (1-10): 7 Worsens with: none Context: none Treatments Prior to Arrival: none - Related Data Home Medications Medication Instructions Recorded Confirmed Furosemide [Lasix] 40 mg PO DAILY 08/04/17 05/09/19 Spironolactone [Aldactone] 25 mg PO DAILY 08/04/17 05/09/19 Atorvastatin [Lipitor] 40 mg PO DAILY 01/01/18 05/09/19 Levothyroxine Sodium [Synthroid] 50 mcg PO DAILY 01/01/18 05/09/19 Ibuprofen/Diphenhydramine HCl 2 cap PO HS 05/09/19 05/09/19 [Advil Pm Liqui-Gels] metFORMIN HCL [Glucophage] 500 mg PO BID 05/09/19 05/09/19 Previous Rx's Medication Instructions Recorded Clopidogrel [Plavix] 75 mg PO DAILY tab 01/01/17 Digoxin [Lanoxin] 125 mcg PO DAILY tab 01/01/17 Allergies Allergy/AdvReac Type Severity Reaction Status Date / Time No Known Allergies Allergy Verified 05/09/19 22:04 Review of Systems ROS Statement: Those systems with pertinent positive or pertinent negative responses have been documented in the HPI. ROS Other: All systems not noted in ROS Statement are negative. Past Medical History Past Medical History: Asthma, Coronary Artery Disease (CAD), Cancer, GERD/Reflux, Hypertension, Myocardial Infarction (DC), Pneumonia, Thyroid Disorder Additional Past Medical History / Comment(s): NSTEMI in September 2016 with subsequent coronary artery bypass grafting x 1, BRAR to the LAD, in October 2016. Severe ischemic cardiomyopathy with estimated ejection fraction 25-30%. Pending AICD placement. Admitted for hypotension in 11-13-16. Remote history of left Breast cancer stage 4(1994) had mastectomy and radiation/chemo,had genetic testing done,was poisitve for BRCA 2 gene mutation, so had elective right mastectomy done. 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 Salgado. She received 4 chemo tx, pne/sepsis Last Myocardial Infarction Date:: History of Any Multi-Drug Resistant Organisms: C-DIFF Date of last positivie culture/infection: per pt approx 2 months ago( ?end of october) MDRO Source:: stool Past Surgical History: Appendectomy, Breast Surgery, Cholecystectomy, Coronary Bypass/CABG, Heart Catheterization, Hysterectomy, Tubal Ligation Additional Past Surgical History / Comment(s): LT BREAST WAS POSTIVE FOR CANCER STAGE 4 cancer-had masectomy. 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 PT TESTED POSITIVE FOR BRCA 2 GENE.then 8 YEARS AGO HAD RT BREAST REMOVED (prophylactically). lt cataract removed, 10-07-16 CABG( 1 VESSEL), LT INTERNAL MAMMARY ARTERY TO LEFT ANT DESCENDING ARTERY. EVAN OOPHERECTOMY(PROPHYLATIC), LUNG NODULE REMOVED(CANCEROUS-lymhoma- AND RECEIVED SEVERAL CHEMO tx, several venous access devices since removed. Past Anesthesia/Blood Transfusion Reactions: No Reported Reaction Additional Past Anesthesia/Blood Transfusion Reaction / Comment(s): takes a bit to wake up after aa Past Psychological History: No Psychological Hx Reported Smoking Status: Never smoker - Past Family History Mother Family Medical History: Diabetes Mellitus Additional Family Medical History / Comment(s): heart valve replacment Father Family Medical History: Cancer Additional Family Medical History / Comment(s): lung cancer Sister(s) Family Medical History: Cancer Additional Family Medical History / Comment(s): breast cancer General Exam - General Exam Comments Initial Comments: Patient does have swelling of left mid. All, erythema and tenderness Limitations: no limitations General appearance: alert, in no apparent distress Head exam: Present: atraumatic, normocephalic, normal inspection Eye exam: Present: normal appearance, PERRL, EOMI. Absent: scleral icterus, conjunctival injection, periorbital swelling ENT exam: Present: normal exam, mucous membranes moist Neck exam: Present: normal inspection. Absent: tenderness, meningismus, lymphadenopathy Respiratory exam: Present: normal lung sounds bilaterally. Absent: respiratory distress, wheezes, rales, rhonchi, stridor Cardiovascular Exam: Present: regular rate, normal rhythm, normal heart sounds. Absent: systolic murmur, diastolic murmur, rubs, gallop, clicks GI/Abdominal exam: Present: soft, normal bowel sounds. Absent: distended, tenderness, guarding, rebound, rigid Extremities exam: Present: normal inspection, full ROM, normal capillary refill. Absent: tenderness, pedal edema, joint swelling, calf tenderness Back exam: Present: normal inspection Neurological exam: Present: alert, oriented X3, CN II-XII intact Psychiatric exam: Present: normal affect, normal mood Skin exam: Present: warm, dry, intact, normal color. Absent: rash Course Vital Signs 05/09/19 05/09/19 05/09/19 21:29 22:30 23:20 Temperature 98.6 F 98.0 F Pulse Rate 98 97 95 Respiratory 20 18 18 Rate Blood Pressure 116/74 101/49 98/51 O2 Sat by Pulse 97 97 96 Oximetry - Reevaluation(s) Reevaluation #1: 05/09/19 23:45 Medical records reviewed Reevaluation #2: 05/09/19 23:45 Patient remains in no acute distress Medical Decision Making - Medical Decision Making 69 female the ER for evaluation patient does say for evaluation of toe swelling and erythema. Patient concern for sepsis as this is happened to her before. We'll admit for IV antibiotics. - Lab Data Result diagrams: 05/09/19 22:27 05/09/19 22:27 Lab Results 05/09/19 05/09/19 05/09/19 Range/Units 22:27 22:27 22:27 WBC 12.4 H (3.8-10.6) k/uL RBC 3.81 (3.80-5.40) m/uL Hgb 11.8 (11.4-16.0) gm/dL Hct 35.3 (34.0-46.0) % MCV 92.6 (80.0-100.0) fL MCH 30.9 (25.0-35.0) pg MCHC 33.4 (31.0-37.0) g/dL RDW 14.3 (11.5-15.5) % Plt Count 250 (150-450) k/uL Neutrophils % 70 % Lymphocytes % 21 % Monocytes % 6 % Eosinophils % 1 % Basophils % 0 % Neutrophils # 8.7 H (1.3-7.7) k/uL Lymphocytes # 2.6 (1.0-4.8) k/uL Monocytes # 0.7 (0-1.0) k/uL Eosinophils # 0.1 (0-0.7) k/uL Basophils # 0.1 (0-0.2) k/uL Sodium 141 (137-145) mmol/L Potassium 3.9 (3.5-5.1) mmol/L Chloride 99 (98-107) mmol/L Carbon Dioxide 31 H (22-30) mmol/L Anion Gap 11 mmol/L BUN 24 H (7-17) mg/dL Creatinine 1.20 H (0.52-1.04) mg/dL Est GFR (CKD-EPI)AfAm 53 (>60 ml/min/1.73 sqM) Est GFR (CKD-EPI)NonAf 46 (>60 ml/min/1.73 sqM) Glucose 187 H (74-99) mg/dL Plasma Lactic Acid [place] 2.0 (0.7-2.0) mmol/L Calcium 8.3 L (8.4-10.2) mg/dL Phosphorus 3.7 (2.5-4.5) mg/dL Magnesium 0.9 L* (1.6-2.3) mg/dL Total Bilirubin 0.5 (0.2-1.3) mg/dL AST 34 (14-36) U/L ALT 32 (9-52) U/L Alkaline Phosphatase 88 (38-126) U/L Troponin I (0.000-0.034) ng/mL Total Protein 7.0 (6.3-8.2) g/dL Albumin 4.2 (3.5-5.0) g/dL 05/09/19 Range/Units 22:27 WBC (3.8-10.6) k/uL RBC (3.80-5.40) m/uL Hgb (11.4-16.0) gm/dL Hct (34.0-46.0) % MCV (80.0-100.0) fL MCH (25.0-35.0) pg MCHC (31.0-37.0) g/dL RDW (11.5-15.5) % Plt Count (150-450) k/uL Neutrophils % % Lymphocytes % % Monocytes % % Eosinophils % % Basophils % % Neutrophils # (1.3-7.7) k/uL Lymphocytes # (1.0-4.8) k/uL Monocytes # (0-1.0) k/uL Eosinophils # (0-0.7) k/uL Basophils # (0-0.2) k/uL Sodium (137-145) mmol/L Potassium (3.5-5.1) mmol/L Chloride (98-107) mmol/L Carbon Dioxide (22-30) mmol/L Anion Gap mmol/L BUN (7-17) mg/dL Creatinine (0.52-1.04) mg/dL Est GFR (CKD-EPI)AfAm (>60 ml/min/1.73 sqM) Est GFR (CKD-EPI)NonAf (>60 ml/min/1.73 sqM) Glucose (74-99) mg/dL Plasma Lactic Acid [place] (0.7-2.0) mmol/L Calcium (8.4-10.2) mg/dL Phosphorus (2.5-4.5) mg/dL Magnesium (1.6-2.3) mg/dL Total Bilirubin (0.2-1.3) mg/dL AST (14-36) U/L ALT (9-52) U/L Alkaline Phosphatase (38-126) U/L Troponin I <0.012 (0.000-0.034) ng/mL Total Protein (6.3-8.2) g/dL Albumin (3.5-5.0) g/dL - EKG Data -: EKG Interpreted by Me (EKG shows paced rhythm rate of 95, SD 128, QRS 1:30, QTc 40.) - Radiology Data Radiology results: report reviewed (X-ray left foot is negative for acute disease), image reviewed Disposition Clinical Impression: Cellulitis Disposition: ADMITTED IP TO THIS [facility] Condition: Good Is patient prescribed a controlled substance at d/c from ED?: No
[2019-05-09 23:20] LABS: Potassium 3.9 mmol/L (3.5-5.1)
[2019-05-09 23:23] LABS: Magnesium 0.9 mg/dL (1.6-2.3)
[2019-05-09] MEDS ORDERED: MAGNESIUM OXIDE 400 MG TAB PO STA (23:30)
[2019-05-10] MEDS: SODIUM CHLORIDE 0.9% 1,000 ML IV SCH ×5 (01:16→21:43)
[2019-05-10] MEDS: MAGNESIUM SULFATE-D5W PMX 1 GM in DEXTROSE/WATER 1 100ML.BAG IVPB SCH ×4 (01:17→17:06)
[2019-05-10] MEDS ORDERED: HYDROcodone/APAP 5-325MG 1 EACH TAB PO STA (04:01)
[2019-05-10 04:50] LABS: Appearance,Urine Clear (Clear); Bilirubin,Urine Negative (Negative); Blood,Urine Negative (Negative); Color,Urine Yellow; Glucose,Urine (UA) Negative (Negative); Ketones,Urine Negative (Negative); Leukocyte Esterase,Urine Negative (Negative); Nitrite,Urine Negative (Negative); PH, Urine 5.5 (5.0-8.0); Protein,Urine Negative (Negative); Specific Gravity,Urine 1.011 (1.001-1.035); Urobilinogen,Urine <2.0 mg/dL (<2.0)
[2019-05-10] MEDS ORDERED: MORPHINE SULFATE 2 MG/ML SYRINGE IVP PRN (06:56)
[2019-05-10 07:30] LABS: Glucose,Whole Blood 143 mg/dL (75-99)
[2019-05-10] MEDS: INSULIN ASPART (NovoLOG) 100 UNIT/ML VIAL SQ SCH ×4 (07:34→20:24)
[2019-05-10] MEDS: LEVOTHYROXINE 50 MCG TAB PO SCH (07:47)
[2019-05-10 08:13] LABS: Basophils % (A) 0 %; Eosinophils # (A) 0.2 k/uL (0-0.7); Eosinophils % (A) 2 %; HCT 35.1 % (34.0-46.0); HGB 11.5 gm/dL (11.4-16.0); Lymphocytes # (A) 1.8 k/uL (1.0-4.8); Lymphocytes % (A) 19 %; MCH 31.1 pg (25.0-35.0); MCHC 32.7 g/dL (31.0-37.0); MCV 95.2 fL (80.0-100.0); Mean Platelet Volume 7.7; Monocytes # (A) 0.7 k/uL (0-1.0); Monocytes % (A) 7 %; Neutrophils # (A) 6.6 k/uL (1.3-7.7); Neutrophils % (A) 69 %; Platelet Count 202 k/uL (150-450); RBC 3.69 m/uL (3.80-5.40); WBC 9.6 k/uL (3.8-10.6)
[2019-05-10 08:25] LABS: Albumin 3.6 g/dL (3.5-5.0); Calcium 7.9 mg/dL (8.4-10.2); Potassium 3.7 mmol/L (3.5-5.1); Total Bilirubin 0.5 mg/dL (0.2-1.3); Total Protein 6.3 g/dL (6.3-8.2)
[2019-05-10] MEDS: ENOXAPARIN 40 MG/0.4 ML SYRINGE SQ SCH (09:10)
[2019-05-10] MEDS: ATORVASTATIN 40 MG TAB PO SCH (09:10)
[2019-05-10] MEDS: CLOPIDOGREL 75 MG TAB PO SCH (09:10)
[2019-05-10] MEDS: MAGNESIUM OXIDE 400 MG TAB PO SCH (09:11)
[2019-05-10] MEDS: DIGOXIN 125 MCG TAB PO SCH (09:11)
[2019-05-10] MEDS: LISINOPRIL 2.5 MG TAB PO SCH (09:35)
[2019-05-10 12:31] LABS: Glucose,Whole Blood 142 mg/dL (75-99)
[2019-05-10] MEDS ORDERED: HYDROcodone/APAP 7.5-325MG 1 EACH TAB PO PRN (13:00)
[2019-05-10] MEDS ORDERED: Magnesium Replacement Protocol 1 EACH MISC MISCELLANE PRN (13:02)
--- NOTE | 2019-05-10 13:04 | P.HPIM ---
History of Present Illness This is a pleasant 69 years old female with past medical history of coronary artery disease, diabetes mellitus, GERD, hypertension, asthma, hypothyroidism, severe ischemic cardiomyopathy with ejection fraction of 25-30% status post AICD. Remote history of left breast cancer status post mastectomy and chemoradiotherapy, left upper nodule lymphoma status post resection and chemotherapy. Patient presents because of left toe pain of 3-4 days duration associated with generalized weakness. Patient denies chest pain or dyspnea. No abdominal pain. No nausea vomiting. Her left toe is red and swollen and tender. Patient had severe pain which is is in down slightly. However she requested transfer IV morphine to pills because she is afraid of the IV narcotics On admission, Vitas looks stable, patient has been afebrile blood pressure on the low normal, currently 107/60. Labs showing resolving leukocytosis of 12.4 down to 9.6K, rest of CBC was unremarkable. Creatinine is coming down from 1.2 down to 1.08. Baseline creatinine is 0.8-0.9. Lactic acid 2.0. Magnesium is low at 0.9. Liver enzymes not elevated. Urine analysis is not suspicious of infection. Right foods X-ray showing mild diffuse edema, more pronounced around the second toe. EKG showing paced rhythm at 95 BPM, with QTC 482, On admission patient was started on ceftriaxone. She is also on normal saline at 100 mL per hour. Her lisinopril was held Review of Systems CONSTITUTIONAL: No fever, no malaise, no fatigue. HEENT: No recent visual problems or hearing problems. Denied any sore throat. CARDIOVASCULAR: No orthopnea, PND, no palpitations, no syncope. PULMONARY: No shortness of breath, no cough, no hemoptysis. GASTROINTESTINAL: No diarrhea, no nausea, no vomiting, no abdominal pain. Normoactive bowel sounds. NEUROLOGICAL: No headaches, no weakness, no numbness. HEMATOLOGICAL: Denies any bleeding or petechiae. GENITOURINARY: Denies any burning micturition, frequency, or urgency. MUSCULOSKELETAL/RHEUMATOLOGICAL: Denies any joint pain, swelling, or any muscle pain. ENDOCRINE: Denies any polyuria or polydipsia. Past Medical History Past Medical History: Asthma, Coronary Artery Disease (CAD), Cancer, Diabetes Mellitus, GERD/Reflux, Hypertension, Myocardial Infarction (OR), Pneumonia, Thyroid Disorder Additional Past Medical History / Comment(s): NSTEMI in September 2016 with subsequent coronary artery bypass grafting x 1, BRAR to the LAD, in October 2016. Severe ischemic cardiomyopathy with estimated ejection fraction 25-30%. Pending AICD placement. Admitted for hypotension in 11-13-16. Remote history of left Breast cancer stage 4(1994) had mastectomy and radiation/chemo,had genetic testing done,was poisitve for BRCA 2 gene mutation, so had elective right mastectomy done. 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 Salgado. She received 4 chemo tx, pne/sepsis Last Myocardial Infarction Date:: History of Any Multi-Drug Resistant Organisms: C-DIFF Date of last positivie culture/infection: 10/2016 MDRO Source:: stool Past Surgical History: Appendectomy, Breast Surgery, Cholecystectomy, Coronary Bypass/CABG, Heart Catheterization, Hysterectomy, Tubal Ligation Additional Past Surgical History / Comment(s): LT BREAST WAS POSTIVE FOR CANCER STAGE 4 cancer-had masectomy. 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 PT TESTED POSITIVE FOR BRCA 2 GENE.then 8 YEARS AGO HAD RT BREAST REMOVED (proph ylactically). lt cataract removed, 10-07-16 CABG( 1 VESSEL), LT INTERNAL MAMMARY ARTERY TO LEFT ANT DESCENDING ARTERY. EVAN OOPHERECTOMY(PROPHYLATIC), LUNG NODULE REMOVED(CANCEROUS-lymhoma- AND RECEIVED SEVERAL CHEMO tx, several venous access devices since removed. Past Anesthesia/Blood Transfusion Reactions: No Reported Reaction Additional Past Anesthesia/Blood Transfusion Reaction / Comment(s): takes a bit to wake up after aa Past Psychological History: No Psychological Hx Reported Additional Psychological History / Comment(s): pt lives with spouse,is independant. owns [employer] in [place]. 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 no pets. no home care services. has a shower chair and "toilet rise" and a walker if needed. Smoking Status: Never smoker Past Alcohol Use History: None Reported Past Drug Use History: None Reported - Past Family History Mother Family Medical History: Diabetes Mellitus Additional Family Medical History / Comment(s): heart valve replacment Father Family Medical History: Cancer Additional Family Medical History / Comment(s): lung cancer Sister(s) Family Medical History: Cancer Additional Family Medical History / Comment(s): breast cancer Medications and Allergies Home Medications Medication Instructions Recorded Confirmed Type Clopidogrel [Plavix] 75 mg PO DAILY tab 01/01/17 05/09/19 Rx Digoxin [Lanoxin] 125 mcg PO DAILY tab 01/01/17 05/09/19 Rx Furosemide [Lasix] 40 mg PO DAILY 08/04/17 05/09/19 History Spironolactone [Aldactone] 25 mg PO DAILY 08/04/17 05/09/19 History Atorvastatin [Lipitor] 40 mg PO DAILY 01/01/18 05/09/19 History Levothyroxine Sodium [Synthroid] 50 mcg PO DAILY 01/01/18 05/09/19 History Ibuprofen/Diphenhydramine HCl 2 cap PO HS 05/09/19 05/09/19 History [Advil Pm Liqui-Gels] metFORMIN HCL [Glucophage] 500 mg PO BID 05/09/19 05/09/19 History Lisinopril [Zestril] 2.5 mg PO DAILY 05/10/19 05/10/19 History Allergies Allergy/AdvReac Type Severity Reaction Status Date / Time No Known Allergies Allergy Verified 05/09/19 22:04 Physical Exam Vitals: Vital Signs Temp Pulse Pulse Pulse Resp BP BP 05/10/19 09:06 93 05/10/19 08:14 97.2 F L 91 18 05/10/19 00:30 98.1 F 98 18 125/72 05/09/19 23:20 98.0 F 95 18 98/51 05/09/19 22:30 97 18 101/49 05/09/19 21:29 98.6 F 98 20 116/74 BP Pulse Ox 05/10/19 09:06 107/60 05/10/19 08:14 100/62 95 05/10/19 00:30 96 05/09/19 23:20 96 05/09/19 22:30 97 05/09/19 21:29 97 Intake and Output 05/09/19 05/10/19 05/10/19 22:59 06:59 14:59 Other: # Voids 1 Weight 70.307 kg GENERAL: The patient is alert and oriented x3, not in any acute distress. Well developed, well nourished. HEENT: Pupils are round and equally reacting to light. EOMI. No scleral icterus. No conjunctival pallor. Normocephalic, atraumatic. No pharyngeal erythema. No thyromegaly. CARDIOVASCULAR: S1 and S2 present. No murmurs, rubs, or gallops. PULMONARY: Chest is clear to auscultation, no wheezing or crackles. ABDOMEN: Soft, nontender, nondistended, normoactive bowel sounds. No palpable organomegaly. MUSCULOSKELETAL: No joint swelling or deformity. -EXTREMITIES: No cyanosis, clubbing, or pedal edema. Left toe is enlarged, right and tender NEUROLOGICAL: Gross neurological examination did not reveal any focal deficits. SKIN: No rashes. Results CBC & Chem 7: 05/10/19 07:06 05/10/19 07:06 Labs: Abnormal Lab Results - Last 24 Hours (Table) 05/09/19 05/09/19 05/10/19 Range/Units 22:27 22:27 07:06 WBC 12.4 H (3.8-10.6) k/uL RBC 3.69 L (3.80-5.40) m/uL Neutrophils # 8.7 H (1.3-7.7) k/uL Carbon Dioxide 31 H (22-30) mmol/L BUN 24 H (7-17) mg/dL Creatinine 1.20 H (0.52-1.04) mg/dL Glucose 187 H (74-99) mg/dL POC Glucose (mg/dL) (75-99) mg/dL Calcium 8.3 L (8.4-10.2) mg/dL Magnesium 0.9 L* (1.6-2.3) mg/dL 05/10/19 05/10/19 05/10/19 Range/Units 07:06 07:19 12:30 WBC (3.8-10.6) k/uL RBC (3.80-5.40) m/uL Neutrophils # (1.3-7.7) k/uL Carbon Dioxide (22-30) mmol/L BUN 21 H (7-17) mg/dL Creatinine 1.08 H (0.52-1.04) mg/dL Glucose 142 H (74-99) mg/dL POC Glucose (mg/dL) 143 H 142 H (75-99) mg/dL Calcium 7.9 L (8.4-10.2) mg/dL Magnesium (1.6-2.3) mg/dL Thrombosis Risk Factor Assmnt - Choose All That Apply Any of the Below Risk Factors Present?: Yes Each Factor Represents 1 point: Obesity (BMI >25) Other Risk Factors: Yes Each Risk Factor Represents 2 Points: Age 61-74 years Thrombosis Risk Factor Assessment Total Risk Factor Score: 3 Thrombosis Risk Factor Assessment Level: Moderate Risk Assessment and Plan Assessment: left toe cellulitis Systemic inflammatory response with leukocytosis and tachycardia, present on admission as had WBC of 12 K and heart rate more than 90 Sepsis secondary to above severe hypomagnesemia generalized weakness, secondary to both Diabetes mellitus Hypertension, Her blood pressure currently on the low normal site History of coronary artery disease Chronic systolic severe ischemic cardiomyopathy with ejection fraction 25-30%. 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 Plan: This is a pleasant 69 years old female who presents with left toe cellulitis. Continue with antibiotics.Continue with IV fluids Labs and medication were reviewed.. Continue same treatment. Continue with symptomatic treatment. Resume home medication. Monitor lytes and vitals. DVT and GI prophylaxis. Further recommendations of the clinical course of the patient DVT prophylaxis: Subcutaneous heparin GI Prophylaxis: Pepcid PT/OT: Pending Prognosis is guarded
[2019-05-10] MEDS: AMPICILLIN-SULBACTAM 3 GM in SODIUM CHLORIDE 0.9% 100 ML IVPB SCH ×2 (16:30→23:28)
[2019-05-10 17:29] LABS: Glucose,Whole Blood 137 mg/dL (75-99)
[2019-05-10] MEDS: ONDANSETRON 4 MG/2 ML VIAL IVP PRN (18:16)
[2019-05-10 20:11] LABS: Glucose,Whole Blood 149 mg/dL (75-99)
[2019-05-11] MEDS: traMADol 50 MG TAB PO PRN ×2 (04:34→13:27)
[2019-05-11 06:53] LABS: Basophils % (A) 0 %; Eosinophils # (A) 0.1 k/uL (0-0.7); Eosinophils % (A) 2 %; HCT 32.1 % (34.0-46.0); HGB 10.7 gm/dL (11.4-16.0); Lymphocytes # (A) 1.8 k/uL (1.0-4.8); Lymphocytes % (A) 20 %; MCH 30.9 pg (25.0-35.0); MCHC 33.2 g/dL (31.0-37.0); Mean Platelet Volume 7.6; Monocytes # (A) 0.7 k/uL (0-1.0); Monocytes % (A) 7 %; Neutrophils # (A) 6.4 k/uL (1.3-7.7); Neutrophils % (A) 69 %; Platelet Count 191 k/uL (150-450); RBC 3.45 m/uL (3.80-5.40); RDW 13.8 % (11.5-15.5); WBC 9.2 k/uL (3.8-10.6)
[2019-05-11 06:56] LABS: Glucose,Whole Blood 128 mg/dL (75-99)
[2019-05-11] MEDS: LEVOTHYROXINE 50 MCG TAB PO SCH (06:58)
[2019-05-11] MEDS: SODIUM CHLORIDE 0.9% 1,000 ML IV SCH ×2 (07:00→15:54)
[2019-05-11 07:09] LABS: Calcium 7.5 mg/dL (8.4-10.2); Magnesium 2.1 mg/dL (1.6-2.3)
[2019-05-11] MEDS: INSULIN ASPART (NovoLOG) 100 UNIT/ML VIAL SQ SCH ×4 (07:37→22:15)
[2019-05-11] MEDS: ENOXAPARIN 40 MG/0.4 ML SYRINGE SQ SCH (09:01)
[2019-05-11] MEDS: AMPICILLIN-SULBACTAM 3 GM in SODIUM CHLORIDE 0.9% 100 ML IVPB SCH ×2 (09:02→15:52)
[2019-05-11] MEDS: ATORVASTATIN 40 MG TAB PO SCH (09:02)
[2019-05-11] MEDS: LISINOPRIL 2.5 MG TAB PO SCH (09:07)
[2019-05-11] MEDS: DIGOXIN 125 MCG TAB PO SCH (09:14)
[2019-05-11] MEDS: MAGNESIUM OXIDE 400 MG TAB PO SCH (09:14)
[2019-05-11] MEDS: CLOPIDOGREL 75 MG TAB PO SCH (09:14)
--- NOTE | 2019-05-11 10:33 | P.PN ---
Subjective Patient is 69 years old female who presents with diabetic nonulcerative cellulitis of the left toe. Patient was started on Unasyn yesterday. She has improvement in her systemic symptoms with no fever and leukocytosis improving back to normal, however she has slight worsening of the local cellulitis extending is slightly proximal, this could be due to the toxin. We'll continue with the same antibiotics, and asked the patient to elevate the leg while following the ESR and C-reactive protein. Patient also reports history of C. diff. She has regular bowel movement this morning with no nausea vomiting and she is tolerating diet well. Review of systems CONSTITUTIONAL: No fever, no malaise, no fatigue. HEENT: No recent visual problems or hearing problems. Denied any sore throat. CARDIOVASCULAR: No orthopnea, PND, no palpitations, no syncope. PULMONARY: No shortness of breath, no cough, no hemoptysis. GASTROINTESTINAL: No diarrhea, no nausea, no vomiting, no abdominal pain. Normoactive bowel sounds. NEUROLOGICAL: No headaches, no weakness, no numbness. HEMATOLOGICAL: Denies any bleeding or petechiae. GENITOURINARY: Denies any burning micturition, frequency, or urgency. MUSCULOSKELETAL/RHEUMATOLOGICAL: Denies any joint pain, swelling, or any muscle pain. ENDOCRINE: Denies any polyuria or polydipsia. Active Medications Generic Name Dose Route Start Last Admin Trade Name Freq PRN Reason Stop Dose Admin Atorvastatin Calcium 40 mg 05/10/19 09:00 05/11/19 09:02 Lipitor PO 40 mg DAILY BERONICA Administration Clopidogrel Bisulfate 75 mg 05/10/19 09:00 05/11/19 09:14 Plavix PO 75 mg DAILY BERONICA Administration Digoxin 125 mcg 05/10/19 09:00 05/11/19 09:14 Lanoxin PO 125 mcg DAILY BERONICA Administration Enoxaparin Sodium 40 mg 05/10/19 09:00 05/11/19 09:01 Lovenox SQ 40 mg DAILY BERONICA Administration Sodium Chloride 1,000 mls @ 100 mls/hr 05/09/19 23:30 05/11/19 07:00 Saline 0.9% IV 100 mls/hr .Q10H BERONICA Administration Ampicillin Sodium/Sulbactam 100 mls @ 200 mls/hr 05/10/19 16:00 05/11/19 09:02 Sodium 3 gm/ Sodium Chloride IVPB 200 mls/hr Q8HR BERONICA Administration Insulin Aspart 0 unit 05/10/19 07:30 05/11/19 07:37 Novolog SQ Not Given [facility] Protocol Levothyroxine Sodium 50 mcg 05/10/19 07:00 05/11/19 06:58 Synthroid PO 50 mcg 0630 BERONICA Administration Lisinopril 2.5 mg 05/10/19 09:00 05/11/19 09:07 Zestril PO 2.5 mg DAILY BERONICA Administration Magnesium Oxide 400 mg 05/10/19 09:00 05/11/19 09:14 Mag-Ox PO 400 mg DAILY BERONICA Administration Miscellaneous Information 1 each 05/10/19 13:02 Magnesium Per Protocol MISCELLANE DAILY PRN Per Protocol Protocol Ondansetron HCl 4 mg 05/10/19 17:09 05/10/19 18:16 Zofran IVP 4 mg Q6HR PRN Administration Nausea And Vomiting Tramadol HCl 50 mg 05/10/19 16:14 05/11/19 04:34 Ultram PO 50 mg Q6HR PRN Administration Pain Objective - Vital Signs Vital signs: Vital Signs Temp 98.6 F 05/11/19 09:08 Pulse 91 05/11/19 09:08 Resp 20 05/11/19 09:08 BP 114/70 05/11/19 09:08 Pulse Ox 96 05/11/19 09:08 Intake & Output 05/10/19 05/11/19 05/11/19 18:59 06:59 18:59 Other: # Voids 1 1 # Emeses 1 - Exam GENERAL: The patient is alert and oriented x3, not in any acute distress. Well developed, well nourished. HEENT: Pupils are round and equally reacting to light. EOMI. No scleral icterus. No conjunctival pallor. Normocephalic, atraumatic. No pharyngeal erythema. No thyromegaly. CARDIOVASCULAR: S1 and S2 present. No murmurs, rubs, or gallops. PULMONARY: Chest is clear to auscultation, no wheezing or crackles. ABDOMEN: Soft, nontender, nondistended, normoactive bowel sounds. No palpable organomegaly. MUSCULOSKELETAL: No joint swelling or deformity. -EXTREMITIES: No cyanosis, clubbing, or pedal edema. Left toe is enlarged, right and tender. Slightly worse than admission NEUROLOGICAL: Gross neurological examination did not reveal any focal deficits. SKIN: No rashes. - Labs CBC & Chem 7: 05/11/19 06:29 05/11/19 06:29 Labs: Abnormal Lab Results - Last 24 Hours (Table) 05/10/19 05/10/19 05/10/19 Range/Units 12:30 17:28 20:09 RBC (3.80-5.40) m/uL Hgb (11.4-16.0) gm/dL Hct (34.0-46.0) % Glucose (74-99) mg/dL POC Glucose (mg/dL) 142 H 137 H 149 H (75-99) mg/dL Calcium (8.4-10.2) mg/dL 05/11/19 05/11/19 05/11/19 Range/Units 06:29 06:29 06:52 RBC 3.45 L (3.80-5.40) m/uL Hgb 10.7 L (11.4-16.0) gm/dL Hct 32.1 L (34.0-46.0) % Glucose 131 H (74-99) mg/dL POC Glucose (mg/dL) 128 H (75-99) mg/dL Calcium 7.5 L (8.4-10.2) mg/dL Microbiology - Last 24 Hours (Table) 05/09/19 22:27 Blood Culture - Preliminary Blood No Growth after 24 hours Assessment and Plan Assessment: left toe cellulitis Systemic inflammatory response with leukocytosis and tachycardia, present on admission as had WBC of 12 K and heart rate more than 90 Sepsis secondary to above severe hypomagnesemia generalized weakness, secondary to both Diabetes mellitus Hypertension, Her blood pressure currently on the low normal site History of coronary artery disease Chronic systolic severe ischemic cardiomyopathy with ejection fraction 25-30%. 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 Plan: This is a pleasant 69 years old female who presents with left toe cellulitis. Continue with antibiotics.Continue with IV fluids Labs and medication were reviewed.. Continue same treatment. Continue with symptomatic treatment. Resume home medication. Monitor lytes and vitals. DVT and GI prophylaxis. Further recommendations of the clinical course of the pa tient DVT prophylaxis: Subcutaneous heparin GI Prophylaxis: Pepcid PT/OT: Pending Prognosis is guarded
[2019-05-11 12:04] LABS: Glucose,Whole Blood 164 mg/dL (75-99)
[2019-05-11 16:45] LABS: Glucose,Whole Blood 84 mg/dL (75-99)
[2019-05-11 21:02] LABS: Glucose,Whole Blood 100 mg/dL (75-99)
[2019-05-12] MEDS: AMPICILLIN-SULBACTAM 3 GM in SODIUM CHLORIDE 0.9% 100 ML IVPB SCH ×2 (00:33→07:45)
[2019-05-12] MEDS: ONDANSETRON 4 MG/2 ML VIAL IVP PRN ×3 (00:43→23:37)
[2019-05-12] MEDS: SODIUM CHLORIDE 0.9% 1,000 ML IV SCH ×3 (00:48→22:28)
[2019-05-12] MEDS: LEVOTHYROXINE 50 MCG TAB PO SCH (06:41)
[2019-05-12 07:03] LABS: Glucose,Whole Blood 100 mg/dL (75-99)
[2019-05-12] MEDS: INSULIN ASPART (NovoLOG) 100 UNIT/ML VIAL SQ SCH ×4 (07:40→21:03)
[2019-05-12 08:18] LABS: Calcium 7.8 mg/dL (8.4-10.2)
[2019-05-12 08:25] LABS: Basophils # (A) 0.1 k/uL (0-0.2); Basophils % (A) 1 %; Eosinophils # (A) 0.2 k/uL (0-0.7); Eosinophils % (A) 2 %; HCT 32.1 % (34.0-46.0); HGB 11.1 gm/dL (11.4-16.0); Lymphocytes # (A) 2.2 k/uL (1.0-4.8); Lymphocytes % (A) 22 %; MCH 31.3 pg (25.0-35.0); MCHC 34.7 g/dL (31.0-37.0); MCV 90.3 fL (80.0-100.0); Mean Platelet Volume 8.1; Monocytes # (A) 0.8 k/uL (0-1.0); Monocytes % (A) 8 %; Neutrophils # (A) 6.8 k/uL (1.3-7.7); Neutrophils % (A) 67 %; Platelet Count 212 k/uL (150-450); RBC 3.56 m/uL (3.80-5.40); RDW 14.8 % (11.5-15.5); WBC 10.2 k/uL (3.8-10.6)
[2019-05-12 08:29] LABS: Potassium 4.3 mmol/L (3.5-5.1)
[2019-05-12 09:06] LABS: Anisocytosis (M) Present
[2019-05-12] MEDS: DIGOXIN 125 MCG TAB PO SCH (09:40)
[2019-05-12] MEDS: ATORVASTATIN 40 MG TAB PO SCH (09:40)
[2019-05-12] MEDS: CLOPIDOGREL 75 MG TAB PO SCH (09:40)
[2019-05-12] MEDS: ENOXAPARIN 40 MG/0.4 ML SYRINGE SQ SCH (09:40)
[2019-05-12] MEDS: LISINOPRIL 2.5 MG TAB PO SCH (09:41)
[2019-05-12] MEDS: MAGNESIUM OXIDE 400 MG TAB PO SCH (09:41)
--- NOTE | 2019-05-12 10:07 | P.PN ---
Subjective Patient is 69 years old female who presents with diabetic nonulcerative cellulitis of the left toe. Patient was started on Unasyn yesterday. She has improvement in her systemic symptoms with no fever and leukocytosis improving back to normal, however she has slight worsening of the local cellulitis extending is slightly proximal, this could be due to the toxin. We'll continue with the same antibiotics, and asked the patient to elevate the leg while following the ESR and C-reactive protein. Patient also reports history of C. diff. She has regular bowel movement this morning with no nausea vomiting and she is tolerating diet well. 05/12/2019 Patient is awake with no chest pain or dyspnea. However she hasNausea vomiting, her left toe cellulitis is not improving and slightly getting worse. Patient was on Unasyn with vitals within his stable and patient is afebrile, no leukocytosis. WBC 10 point okay, hemoglobin stable at 11.1. Electrolytes and creatinine levels are within normal limits, her sugar is controlled 84-109. Her hemoglobin A1c is 7%. There is on examination there is no open wound and the left toe is still swollen, reddened and tender, swollen dressing to the distal part of the forefoot. We'll change antibiotics from Unasyn to cefazolin. We are going to call infectious disease consult Review of systems CONSTITUTIONAL: No fever, no malaise, no fatigue. HEENT: No recent visual problems or hearing problems. Denied any sore throat. CARDIOVASCULAR: No orthopnea, PND, no palpitations, no syncope. PULMONARY: No shortness of breath, no cough, no hemoptysis. GASTROINTESTINAL: No diarrhea, no nausea, no vomiting, no abdominal pain. Normoactive bowel sounds. NEUROLOGICAL: No headaches, no weakness, no numbness. HEMATOLOGICAL: Denies any bleeding or petechiae. GENITOURINARY: Denies any burning micturition, frequency, or urgency. MUSCULOSKELETAL/RHEUMATOLOGICAL: Denies any joint pain, swelling, or any muscle pain. ENDOCRINE: Denies any polyuria or polydipsia. Active Medications Generic Name Dose Route Start Last Admin Trade Name Freq PRN Reason Stop Dose Admin Atorvastatin Calcium 40 mg 05/10/19 09:00 05/12/19 09:40 Lipitor PO 40 mg DAILY BERONICA Administration Clopidogrel Bisulfate 75 mg 05/10/19 09:00 05/12/19 09:40 Plavix PO 75 mg DAILY BERONICA Administration Digoxin 125 mcg 05/10/19 09:00 05/12/19 09:40 Lanoxin PO 125 mcg DAILY BERONICA Administration Enoxaparin Sodium 40 mg 05/10/19 09:00 05/12/19 09:40 Lovenox SQ 40 mg DAILY BERONICA Administration Sodium Chloride 1,000 mls @ 100 mls/hr 05/09/19 23:30 05/12/19 00:48 Saline 0.9% IV 100 mls/hr .Q10H BERONICA Administration Cefazolin Sodium 2 gm/ Sodium 50 mls @ 100 mls/hr 05/12/19 09:30 05/12/19 09:55 Chloride IVPB 100 mls/hr Q12HR BERONICA Administration Insulin Aspart 0 unit 05/10/19 07:30 05/12/19 07:40 Novolog SQ Not Given ACHS [facility] Protocol Levothyroxine Sodium 50 mcg 05/10/19 07:00 05/12/19 06:41 Synthroid PO 50 mcg 0630 BERONICA Administration Lisinopril 2.5 mg 05/10/19 09:00 05/12/19 09:41 Zestril PO 2.5 mg DAILY BERONICA Administration Magnesium Oxide 400 mg 05/10/19 09:00 05/12/19 09:41 Mag-Ox PO 400 mg DAILY BERONICA Administration Miscellaneous Information 1 each 05/10/19 13:02 Magnesium Per Protocol MISCELLANE DAILY PRN Per Protocol Protocol Ondansetron HCl 4 mg 05/10/19 17:09 05/12/19 07:48 Zofran IVP 4 mg Q6HR PRN Administration Nausea And Vomiting Tramadol HCl 50 mg 05/10/19 16:14 05/11/19 13:27 Ultram PO 50 mg Q6HR PRN Administration Pain Objective - Vital Signs Vital signs: Vital Signs Temp 98.1 F 05/11/19 23:00 Pulse 91 05/12/19 00:00 Resp 16 05/12/19 00:00 BP 120/71 05/11/19 23:00 Pulse Ox 95 05/11/19 23:00 Intake & Output 05/11/19 05/12/19 05/12/19 18:59 06:59 18:59 Output Total 300 Balance -300 Output: Emesis 300 Other: Voiding Method Toilet # Voids 2 1 # Emeses 2 - Exam GENERAL: The patient is alert and oriented x3, not in any acute distress. Well developed, well nourished. HEENT: Pupils are round and equally reacting to light. EOMI. No scleral icterus. No conjunctival pallor. Normocephalic, atraumatic. No pharyngeal erythema. No thyromegaly. CARDIOVASCULAR: S1 and S2 present. No murmurs, rubs, or gallops. PULMONARY: Chest is clear to auscultation, no wheezing or crackles. ABDOMEN: Soft, nontender, nondistended, normoactive bowel sounds. No palpable organomegaly. MUSCULOSKELETAL: No joint swelling or deformity. -EXTREMITIES: No cyanosis, clubbing, or pedal edema. Left toe is enlarged, right and tender. Slightly worse than admission NEUROLOGICAL: Gross neurological examination did not reveal any focal deficits. SKIN: No rashes. - Labs CBC & Chem 7: 05/12/19 07:42 05/12/19 07:42 Labs: Abnormal Lab Results - Last 24 Hours (Table) 05/11/19 05/11/19 05/11/19 Range/Units 06:20 06:29 12:03 RBC (3.80-5.40) m/uL Hgb (11.4-16.0) gm/dL Hct (34.0-46.0) % Glucose (74-99) mg/dL POC Glucose (mg/dL) 164 H (75-99) mg/dL Hemoglobin A1c 7.0 H (4.0-6.0) % Calcium (8.4-10.2) mg/dL C-Reactive Protein 27.2 H (<10.0) mg/L 05/11/19 05/12/19 05/12/19 Range/Units 20:57 07:02 07:42 RBC 3.56 L (3.80-5.40) m/uL Hgb 11.1 L (11.4-16.0) gm/dL Hct 32.1 L (34.0-46.0) % Glucose (74-99) mg/dL POC Glucose (mg/dL) 100 H 100 H (75-99) mg/dL Hemoglobin A1c (4.0-6.0) % Calcium (8.4-10.2) mg/dL C-Reactive Protein (<10.0) mg/L 05/12/19 Range/Units 07:42 RBC (3.80-5.40) m/uL Hgb (11.4-16.0) gm/dL Hct (34.0-46.0) % Glucose 109 H (74-99) mg/dL POC Glucose (mg/dL) (75-99) mg/dL Hemoglobin A1c (4.0-6.0) % Calcium 7.8 L (8.4-10.2) mg/dL C-Reactive Protein (<10.0) mg/L Microbiology - Last 24 Hours (Table) 05/09/19 22:27 Blood Culture - Preliminary Blood No Growth after 48 hours Assessment and Plan Assessment: left toe cellulitis Systemic inflammatory response with leukocytosis and tachycardia, present on admission as had WBC of 12 K and heart rate more than 90 Sepsis secondary to above severe hypomagnesemia, improved generalized weakness, secondary to both Diabetes mellitus Hypertension, Her blood pressure currently on the low normal site History of coronary artery disease Chronic systolic severe ischemic cardiomyopathy with ejection fraction 25-30%. 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 Plan: This is a pleasant 69 years old female who presents with left toe cellulitis. Continue with antibiotics.change Unasyn to cefazolin.. Call infectious disease consult. Continue with IV fluids Labs and medication were reviewed.. Continue same treatment. Continue with symptomatic treatment. Resume home medication. Monitor lytes and vitals. DVT and GI prophylaxis. Further recommendations of the clinical course of the patient DVT prophylaxis: Subcutaneous heparin GI Prophylaxis: Pepcid PT/OT: Pending Prognosis is guarded
[2019-05-12 12:11] LABS: Glucose,Whole Blood 120 mg/dL (75-99)
[2019-05-12] MEDS ORDERED: VANCOMYCIN IV PER PHARMACY 1 EACH MISC MISCELLANE PRN (15:25)
[2019-05-12] MEDS: VANCOMYCIN 1,250 MG in SODIUM CHLORIDE 0.9% 250 ML IVPB SCH (16:04)
[2019-05-12 17:00] LABS: Glucose,Whole Blood 118 mg/dL (75-99)
[2019-05-12 21:01] LABS: Glucose,Whole Blood 102 mg/dL (75-99)
--- NOTE | 2019-05-12 22:09 | CONS ---
CONSULTATION DATE OF SERVICE: 05/12/2019 REASON FOR CONSULTATION: Left second toe and foot cellulitis. HISTORY OF PRESENT ILLNESS: The patient is a 69-year-old female who presented to the ER at [facility] on 05/09/2019 with the chief complaints of left second toe and left foot pain, swelling and redness. Apparently the patient's symptoms had been going on for a day or two before the patient presented to hospital. The patient did not recall any history of any trauma. The patient described the pain to the left second toe to be throbbing, with an intensity of almost 10/10 in severity with some radiation to the dorsum of the left foot. Currently the patient does not have any open wounds or any drainage. The patient did have some chills; however, no high-grade fever has been recorded in the hospital. The patient did have elevated white count of 12.4 on presentation. She did have blood cultures obtained, which are currently pending. The patient did have x-rays of the foot which did not show any acute fracture or dislocation. Mild diffuse subcutaneous edema, more focal swelling involving the second toe without periosteal reaction or cortical destruction. The patient has been treated with Unasyn without any improvement, switched over to Cefazolin this morning without any improvement; hence Infectious Disease has been consulted for further recommendation regarding antibiotic therapy. REVIEW OF SYSTEMS: CONSTITUTIONAL: Positive for weakness and some chills. No high-grade fever. EYES: No complaint. ENT: No complaint. RESPIRATORY: No complaint. CARDIOVASCULAR: No complaint. GENITOURINARY: No complaint. GASTROINTESTINAL: No complaint. MUSCULOSKELETAL: As per HPI. INTEGUMENTARY: As per HPI. PSYCHOLOGICAL: No complaint. ENDOCRINE: No complaint. NEUROLOGICAL: No complaint. PAST MEDICAL HISTORY: 1. Diabetes mellitus. 2. Gastroesophageal reflux disease. 3. Hypertension. 4. IL. 5. Pneumonia. 6. Hypothyroidism. 7. Coronary artery disease. 8. Previous history of C difficile colitis. PAST SURGICAL HISTORY: 1. Appendectomy. 2. Breast surgery. 3. Cholecystectomy. 4. Coronary artery bypass grafting. 5. Hysterectomy. 6. Tubal ligation. SOCIAL HISTORY: No history of smoking, drinking or drug use. FAMILY HISTORY: Mother with history of diabetes. Father with history of lung cancer. ALLERGIES: TYLENOL and HYDROCODONE. MEDICATIONS: Medications currently include: 1. Lipitor. 2. Plavix. 3. Lanoxin. 4. Lovenox. 5. NovoLog. 6. Synthroid. 7. Zestril. 8. Mag oxide. 9. Zofran. 10.Cefazolin. Prior to that she was on Unasyn. PHYSICAL EXAMINATION: Her blood pressure is 114/70 with a pulse of 95, temperature 98.5. She is 95% on room air. General description is an elderly female lying in bed in no distress. No tachypnea or accessory muscle of respiration use. HEENT examination shows pallor. No scleral icterus. Oral mucous membrane is dry. No pharyngeal erythema or thrush. NECK: Trachea is central. No thyromegaly. LUNGS: Unlabored breathing. Clear to auscultation anteriorly. No wheeze or crackle. HEART: S1, S2. Regular rate and rhythm. No added sound. ABDOMEN: Soft. No tenderness. No guarding or rigidity. EXTREMITIES: No edema of the feet. EXAMINATION OF LEFT FOOT: Dorsum swollen, red and tender to touch. Second toe is swollen and tender to touch. No open wound or any drainage. Neurologically patient is awake, alert, oriented x3. Mood and affect normal. LABS: Hemoglobin 11.1, white count 10.2, BUN of 11, creatinine 0.86. DIAGNOSTIC IMPRESSION AND PLAN: Patient admitted to hospital with acute pain to her left second toe with secondary cellulitis in this patient currently with no history of any trauma. She has not responded very well to Unasyn or to cefazolin with a question of possible community- associated MRSA infection. PLAN: 1. Discontinue the cefazolin. 2. Will start the patient on vancomycin, Pharmacy to dose, target of 15, while watching her kidney function and vancomycin trough closely. 3. Jonh the area of redness. 4. Will follow her clinical condition and culture to further adjust medication if needed. Thank you for this consultation. Will follow this patient along with you. MMODL / IJN: [id number] / HEATHER
[2019-05-12] MEDS: traMADol 50 MG TAB PO PRN (23:36)
[2019-05-13] MEDS: traMADol 50 MG TAB PO PRN ×2 (06:38→18:01)
[2019-05-13] MEDS: LEVOTHYROXINE 50 MCG TAB PO SCH (06:38)
[2019-05-13] MEDS: SODIUM CHLORIDE 0.9% 1,000 ML IV SCH ×2 (06:46→14:49)
[2019-05-13] MEDS: INSULIN ASPART (NovoLOG) 100 UNIT/ML VIAL SQ SCH ×4 (06:48→20:38)
[2019-05-13 06:52] LABS: Glucose,Whole Blood 106 mg/dL (75-99)
[2019-05-13] MEDS: VANCOMYCIN 1,250 MG in SODIUM CHLORIDE 0.9% 250 ML IVPB SCH ×2 (08:25→23:30)
[2019-05-13] MEDS: ENOXAPARIN 40 MG/0.4 ML SYRINGE SQ SCH (08:25)
[2019-05-13] MEDS: CLOPIDOGREL 75 MG TAB PO SCH (08:26)
[2019-05-13] MEDS: LISINOPRIL 2.5 MG TAB PO SCH (08:26)
[2019-05-13] MEDS: MAGNESIUM OXIDE 400 MG TAB PO SCH (08:26)
[2019-05-13] MEDS: ATORVASTATIN 40 MG TAB PO SCH (08:26)
[2019-05-13] MEDS: DIGOXIN 125 MCG TAB PO SCH (08:26)
[2019-05-13] MEDS ORDERED: FUROSEMIDE 20 MG TAB PO SCH (09:45)
[2019-05-13 09:55] LABS: Basophils % (A) 0 %; Eosinophils # (A) 0.2 k/uL (0-0.7); Eosinophils % (A) 2 %; HCT 32.4 % (34.0-46.0); HGB 10.9 gm/dL (11.4-16.0); Lymphocytes # (A) 1.8 k/uL (1.0-4.8); Lymphocytes % (A) 17 %; MCH 30.7 pg (25.0-35.0); MCHC 33.5 g/dL (31.0-37.0); MCV 91.5 fL (80.0-100.0); Mean Platelet Volume 8.1; Monocytes # (A) 0.9 k/uL (0-1.0); Monocytes % (A) 9 %; Neutrophils # (A) 7.6 k/uL (1.3-7.7); Neutrophils % (A) 71 %; Platelet Count 220 k/uL (150-450); RBC 3.54 m/uL (3.80-5.40); RDW 14.7 % (11.5-15.5); WBC 10.7 k/uL (3.8-10.6)
[2019-05-13 11:10] LABS: C Reactive Protein 49.8 mg/L (<10.0); Calcium 8.4 mg/dL (8.4-10.2); Potassium 4.4 mmol/L (3.5-5.1)
--- NOTE | 2019-05-13 11:14 | P.PN ---
Subjective Patient is 69 years old female who presents with diabetic nonulcerative cellulitis of the left toe. Patient was started on Unasyn yesterday. She has improvement in her systemic symptoms with no fever and leukocytosis improving back to normal, however she has slight worsening of the local cellulitis extending is slightly proximal, this could be due to the toxin. We'll continue with the same antibiotics, and asked the patient to elevate the leg while following the ESR and C-reactive protein. Patient also reports history of C. diff. She has regular bowel movement this morning with no nausea vomiting and she is tolerating diet well. 05/12/2019 Patient is awake with no chest pain or dyspnea. However she hasNausea vomiting, her left toe cellulitis is not improving and slightly getting worse. Patient was on Unasyn with vitals within his stable and patient is afebrile, no leukocytosis. WBC 10 point okay, hemoglobin stable at 11.1. Electrolytes and creatinine levels are within normal limits, her sugar is controlled 84-109. Her hemoglobin A1c is 7%. There is on examination there is no open wound and the left toe is still swollen, reddened and tender, swollen dressing to the distal part of the forefoot. We'll change antibiotics from Unasyn to cefazolin. We are going to call infectious disease consult 05/13/2019 Patient today showed improvement in her left toe cellulitis as redness and swelling is regressing back. Patient have less pain and tenderness of the area as well. However today patient developed some wheezing and slight dyspnea. Fluids were running at 100 mL/h were lowered to 50 mL per hour, patient was taken Lasix 40 mg by mouth daily, we going to resume it as IV daily. Labs reviewed including CBC with WBC is slightly worse at 10.7 K today. BMP and creatinine are still pending. However I called the labs and they told me that creatinine from today is 0.82. We going to order physical therapy evaluation Objective - Vital Signs Vital signs: Vital Signs Temp 98.3 F 05/13/19 08:21 Pulse 99 05/13/19 08:21 Resp 16 05/13/19 08:21 BP 124/81 05/13/19 08:21 Pulse Ox 94 L 05/13/19 08:21 Intake & Output 05/12/19 05/13/19 05/13/19 18:59 06:59 18:59 Other: Voiding Method Toilet # Voids 2 1 - Exam GENERAL: The patient is alert and oriented x3, not in any acute distress. Well developed, well nourished. HEENT: Pupils are round and equally reacting to light. EOMI. No scleral icterus. No conjunctival pallor. Normocephalic, atraumatic. No pharyngeal erythema. No thyromegaly. CARDIOVASCULAR: S1 and S2 present. No murmurs, rubs, or gallops. PULMONARY: Chest is clear to auscultation, no wheezing or crackles. ABDOMEN: Soft, nontender, nondistended, normoactive bowel sounds. No palpable organomegaly. MUSCULOSKELETAL: No joint swelling or deformity. -EXTREMITIES: No cyanosis, clubbing, or pedal edema. Left toe is enlarged, right and tender. Slightly worse than admission NEUROLOGICAL: Gross neurological examination did not reveal any focal deficits. SKIN: No rashes. - Labs CBC & Chem 7: 05/13/19 09:22 05/12/19 07:42 Labs: Abnormal Lab Results - Last 24 Hours (Table) 05/12/19 05/12/19 05/12/19 Range/Units 12:10 16:57 21:00 WBC (3.8-10.6) k/uL RBC (3.80-5.40) m/uL Hgb (11.4-16.0) gm/dL Hct (34.0-46.0) % POC Glucose (mg/dL) 120 H 118 H 102 H (75-99) mg/dL 05/13/19 05/13/19 Range/Units 06:45 09:22 WBC 10.7 H (3.8-10.6) k/uL RBC 3.54 L (3.80-5.40) m/uL Hgb 10.9 L (11.4-16.0) gm/dL Hct 32.4 L (34.0-46.0) % POC Glucose (mg/dL) 106 H (75-99) mg/dL Microbiology - Last 24 Hours (Table) 05/09/19 22:27 Blood Culture - Preliminary Blood No Growth after 72 hours Assessment and Plan Assessment: left toe cellulitis Systemic inflammatory response with leukocytosis and tachycardia, present on admission as had WBC of 12 K and heart rate more than 90 Sepsis secondary to above severe hypomagnesemia, improved generalized weakness, secondary to both Diabetes mellitus Hypertension, Her blood pressure currently on the low normal site History of coronary artery disease Chronic systolic severe ischemic cardiomyopathy with ejection fraction 25-30%. 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 Plan: This is a pleasant 69 years old female who presents with left toe cellulitis. Continue with antibiotics.. Infectious disease consult is appreciated, patient antibiotics was changed to IV vancomycin. Continue with IV fluids, but lowered to 50 mL per hour and restart Lasix. Labs and medication were reviewed.. Continue same treatment. Continue with symptomatic treatment. Resume home medication. Monitor lytes and vitals. DVT and GI prophylaxis. Further recommendations of the clinical course of the patient DVT prophylaxis: Subcutaneous heparin GI Prophylaxis: Pepcid PT/OT: Pending Prognosis is guarded
[2019-05-13] MEDS ORDERED: FUROSEMIDE 10 MG/ML 4 ML VIAL IV SCH (11:15)
[2019-05-13 12:19] LABS: Glucose,Whole Blood 127 mg/dL (75-99)
--- NOTE | 2019-05-13 14:05 | PN ---
PROGRESS NOTE DATE OF SERVICE: 05/13/2019 REASON FOR FOLLOWUP: Left second toe cellulitis. INTERVAL HISTORY: The patient is currently afebrile. Patient has been breathing comfortably. Left second toe pain and swelling is slightly decreased. She is complaining of more pain at the base of the left big toe. No history of any trauma. Denies having any chest pain. Some shortness of breath. Minimal wheezing. No nausea, no vomiting. No abdominal pain, no diarrhea. PHYSICAL EXAMINATION: Blood pressure is 124/81 with a pulse of 99, temperature 98.7, 94% on room air. General description is an elderly female, lying in bed in no distress. RESPIRATORY SYSTEM: Unlabored breathing, clear to auscultation anteriorly. HEART: S1, S2. Regular rate and rhythm. ABDOMEN: Soft, no tenderness. Left second toe redness has slightly improved. Minimal redness noted at the base of the left big toe. DIAGNOSTIC IMPRESSION AND PLAN: Patient with left second toe cellulitis, now with some abnormality at the base of the big toe with concern for possible gouty arthritis. Uric acid level will be checked. The patient to continue on IV vancomycin on 24 hours until the patient is re--evaluated and continue supportive care. MMODL / IJN: [id number] /
[2019-05-13 17:43] LABS: Glucose,Whole Blood 95 mg/dL (75-99)
[2019-05-13] MEDS: ONDANSETRON 4 MG/2 ML VIAL IVP PRN (18:01)
[2019-05-13 20:18] LABS: Glucose,Whole Blood 110 mg/dL (75-99)
[2019-05-14 06:13] LABS: Glucose,Whole Blood 119 mg/dL (75-99)
[2019-05-14] MEDS: INSULIN ASPART (NovoLOG) 100 UNIT/ML VIAL SQ SCH ×4 (06:18→20:52)
[2019-05-14] MEDS: SODIUM CHLORIDE 0.9% 1,000 ML IV SCH (06:19)
[2019-05-14] MEDS: LEVOTHYROXINE 50 MCG TAB PO SCH (06:19)
[2019-05-14] MEDS: FUROSEMIDE 40 MG TAB PO SCH (06:30)
[2019-05-14 07:33] LABS: Basophils # (A) 0.1 k/uL (0-0.2); Basophils % (A) 1 %; Eosinophils # (A) 0.3 k/uL (0-0.7); Eosinophils % (A) 2 %; HCT 32.1 % (34.0-46.0); HGB 11.2 gm/dL (11.4-16.0); Lymphocytes # (A) 1.8 k/uL (1.0-4.8); Lymphocytes % (A) 16 %; MCH 31.8 pg (25.0-35.0); MCHC 34.8 g/dL (31.0-37.0); MCV 91.4 fL (80.0-100.0); Mean Platelet Volume 8.2; Monocytes # (A) 0.9 k/uL (0-1.0); Monocytes % (A) 9 %; Neutrophils # (A) 7.6 k/uL (1.3-7.7); Neutrophils % (A) 70 %; Platelet Count 226 k/uL (150-450); RBC 3.52 m/uL (3.80-5.40); RDW 15.6 % (11.5-15.5); WBC 10.8 k/uL (3.8-10.6)
[2019-05-14 07:36] LABS: Calcium 8.6 mg/dL (8.4-10.2); Magnesium 1.9 mg/dL (1.6-2.3)
[2019-05-14 07:40] LABS: Potassium 5.4 mmol/L (3.5-5.1)
[2019-05-14] MEDS: CLOPIDOGREL 75 MG TAB PO SCH (08:45)
[2019-05-14] MEDS: ENOXAPARIN 40 MG/0.4 ML SYRINGE SQ SCH (08:45)
[2019-05-14] MEDS: LISINOPRIL 2.5 MG TAB PO SCH (08:45)
[2019-05-14] MEDS: DIGOXIN 125 MCG TAB PO SCH (08:46)
[2019-05-14] MEDS: ATORVASTATIN 40 MG TAB PO SCH (08:46)
[2019-05-14] MEDS: MAGNESIUM OXIDE 400 MG TAB PO SCH (09:05)
--- NOTE | 2019-05-14 11:38 | P.PN ---
Subjective Patient is 69 years old female who presents with diabetic nonulcerative cellulitis of the left toe. Patient was started on Unasyn yesterday. She has improvement in her systemic symptoms with no fever and leukocytosis improving back to normal, however she has slight worsening of the local cellulitis extending is slightly proximal, this could be due to the toxin. We'll continue with the same antibiotics, and asked the patient to elevate the leg while following the ESR and C-reactive protein. Patient also reports history of C. diff. She has regular bowel movement this morning with no nausea vomiting and she is tolerating diet well. 05/12/2019 Patient is awake with no chest pain or dyspnea. However she hasNausea vomiting, her left toe cellulitis is not improving and slightly getting worse. Patient was on Unasyn with vitals within his stable and patient is afebrile, no leukocytosis. WBC 10 point okay, hemoglobin stable at 11.1. Electrolytes and creatinine levels are within normal limits, her sugar is controlled 84-109. Her hemoglobin A1c is 7%. There is on examination there is no open wound and the left toe is still swollen, reddened and tender, swollen dressing to the distal part of the forefoot. We'll change antibiotics from Unasyn to cefazolin. We are going to call infectious disease consult 05/13/2019 Patient today showed improvement in her left toe cellulitis as redness and swelling is regressing back. Patient have less pain and tenderness of the area as well. However today patient developed some wheezing and slight dyspnea. Fluids were running at 100 mL/h were lowered to 50 mL per hour, patient was taken Lasix 40 mg by mouth daily, we going to resume it as IV daily. Labs reviewed including CBC with WBC is slightly worse at 10.7 K today. BMP and creatinine are still pending. However I called the labs and they told me that creatinine from today is 0.82. We going to order physical therapy evaluation 05/14/2019 Patient still have pain and tenderness and redness in her left toe, she's been afebrile for more than 24 hours. There is some vitals are stable, mild tachycardia. WBC is slightly elevated at 10.8 K, potassium 5.4. Sugar is controlled blood culture is negative. Infectious disease team R following the case closely and there are input is appreciated. CRP is elevated, CT of the john t with IV contrast is ordered already to check for possible osteomyelitis. Patient is still being treated with vancomycin. Also todays she is complaining of from pain and tenderness at the base of her first toe, suspicion for gouty arthritis uric acid is ordered. Patient remains on normal saline at 50 mm per hour plus by mouth Lasix. Patient has loose bowel movement with history of C. diff. C. diff is ordered. No nausea vomiting or abdominal pain. Review of systems CONSTITUTIONAL: No fever, no malaise, no fatigue. HEENT: No recent visual problems or hearing problems. Denied any sore throat. CARDIOVASCULAR: No orthopnea, PND, no palpitations, no syncope. PULMONARY: No shortness of breath, no cough, no hemoptysis. GASTROINTESTINAL: no nausea, no vomiting, no abdominal pain. Normoactive bowel sounds. NEUROLOGICAL: No headaches, no weakness, no numbness. HEMATOLOGICAL: Denies any bleeding or petechiae. GENITOURINARY: Denies any burning micturition, frequency, or urgency. MUSCULOSKELETAL/RHEUMATOLOGICAL: Denies any joint pain, swelling, or any muscle pain. ENDOCRINE: Denies any polyuria or polydipsia. Active Medications Generic Name Dose Route Start Last Admin Trade Name Freq PRN Reason Stop Dose Admin Atorvastatin Calcium 40 mg 05/10/19 09:00 05/14/19 08:46 Lipitor PO 40 mg DAILY BERONICA Administration Clopidogrel Bisulfate 75 mg 05/10/19 09:00 05/14/19 08:45 Plavix PO 75 mg DAILY BERONICA Administration Digoxin 125 mcg 05/10/19 09:00 05/14/19 08:46 Lanoxin PO 125 mcg DAILY BERONICA Administration Enoxaparin Sodium 40 mg 05/10/19 09:00 05/14/19 08:45 Lovenox SQ 40 mg DAILY BERONICA Administration Furosemide 40 mg 05/14/19 09:00 05/14/19 06:30 Lasix PO 40 mg DAILY BERONICA Administration Sodium Chloride 1,000 mls @ 50 mls/hr 05/09/19 23:30 05/14/19 06:19 Saline 0.9% IV 50 mls/hr .Q20H BERONICA Administration Vancomycin HCl 1,250 mg/ 250 mls @ 125 mls/hr 05/12/19 16:00 05/13/19 23:30 Sodium Chloride IVPB 125 mls/hr Q16H BERONICA Administration Ceftriaxone Sodium 2 gm/ 50 mls @ 100 mls/hr 05/14/19 12:00 Sodium Chloride IVPB Q24HR [facility] Insulin Aspart 0 unit 05/10/19 07:30 05/14/19 06:18 Novolog SQ Not Given ACHS [facility] Protocol Levothyroxine Sodium 50 mcg 05/10/19 07:00 05/14/19 06:19 Synthroid PO 50 mcg 0630 BERONICA Administration Lisinopril 2.5 mg 05/10/19 09:00 05/14/19 08:45 Zestril PO 2.5 mg DAILY BERONICA Administration Magnesium Oxide 400 mg 05/10/19 09:00 05/14/19 09:05 Mag-Ox PO 400 mg DAILY BERONICA Administration Miscellaneous Information 1 each 05/10/19 13:02 Magnesium Per Protocol MISCELLANE DAILY PRN Per Protocol Protocol Miscellaneous Information 0 each 05/15/19 07:00 Vancomycin Trough Due MISCELLANE 05/15/19 07:01 DIRECTED ONE Ondansetron HCl 4 mg 05/10/19 17:09 05/13/19 18:01 Zofran IVP 4 mg Q6HR PRN Administration Nausea And Vomiting Tramadol HCl 50 mg 05/10/19 16:14 05/13/19 18:01 Ultram PO 50 mg Q6HR PRN Administration Pain Objective - Vital Signs Vital signs: Vital Signs Temp 98.2 F 05/13/19 23:31 Pulse 104 H 05/14/19 08:00 Resp 18 05/14/19 06:25 BP 117/85 05/13/19 23:31 Pulse Ox 92 L 05/14/19 06:25 Intake & Output 05/13/19 05/14/19 05/14/19 18:59 06:59 18:59 Intake Total 750 Balance 750 Intake: Intake, IV Titration 250 Amount Vancomycin 1,250 mg In 250 Sodium Chloride 0.9% 250 ml @ 125 mls/hr IVPB Q16H [facility] Rx#:[id number] Oral 500 Other: Voiding Method Toilet # Voids 4 1 1 - Exam GENERAL: The patient is alert and oriented x3, not in any acute distress. Well developed, well nourished. HEENT: Pupils are round and equally reacting to light. EOMI. No scleral icterus. No conjunctival pallor. Normocephalic, atraumatic. No pharyngeal erythema. No thyromegaly. CARDIOVASCULAR: S1 and S2 present. No murmurs, rubs, or gallops. PULMONARY: Chest is clear to auscultation, no wheezing or crackles. ABDOMEN: Soft, nontender, nondistended, normoactive bowel sounds. No palpable organomegaly. MUSCULOSKELETAL: No joint swelling or deformity. -EXTREMITIES: No cyanosis, clubbing, or pedal edema. Left toe is enlarged, right and tender. Slowly improving. Also she has pain and tenderness at the base of the big toe NEUROLOGICAL: Gross neurological examination did not reveal any focal deficits. SKIN: No rashes. - Labs CBC & Chem 7: 05/14/19 06:36 05/14/19 06:36 Labs: Abnormal Lab Results - Last 24 Hours (Table) 05/13/19 05/13/19 05/14/19 Range/Units 12:18 20:16 06:12 WBC (3.8-10.6) k/uL RBC (3.80-5.40) m/uL Hgb (11.4-16.0) gm/dL Hct (34.0-46.0) % RDW (11.5-15.5) % Potassium (3.5-5.1) mmol/L Glucose (74-99) mg/dL POC Glucose (mg/dL) 127 H 110 H 119 H (75-99) mg/dL 05/14/19 05/14/19 Range/Units 06:36 06:36 WBC 10.8 H (3.8-10.6) k/uL RBC 3.52 L (3.80-5.40) m/uL Hgb 11.2 L (11.4-16.0) gm/dL Hct 32.1 L (34.0-46.0) % RDW 15.6 H (11.5-15.5) % Potassium 5.4 H (3.5-5.1) mmol/L Glucose 107 H (74-99) mg/dL POC Glucose (mg/dL) (75-99) mg/dL Microbiology - Last 24 Hours (Table) 05/09/19 22:27 Blood Culture - Preliminary Blood No Growth after 96 hours Assessment and Plan Assessment: left toe cellulitis. Rule out abscess or osteomyelitis of the toe Systemic inflammatory response with leukocytosis and tachycardia, present on admission as had WBC of 12 K and heart rate more than 90 Sepsis secondary to above Possible gouty arthritis of the big toe, uric acid is pending severe hypomagnesemia, improved generalized weakness, secondary to both Diabetes mellitus Hypertension, Her blood pressure currently on the low normal site History of coronary artery disease Chronic systolic severe ischemic cardiomyopathy with ejection fraction 25-30%. 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 Plan: This is a pleasant 69 years old female who presents with left toe cellulitis. Continue with antibiotics.. Infectious disease consult is appreciated, and we will follow the recommendation. patient antibiotics was changed to IV vancomycin. Check CAT scan of the foot to rule out osteomyelitis. Check uric acid for possible gouty arthritis. Continue with IV fluids, but lowered to 50 mL per hour and restart Lasix. Check C. diff Labs and medication were reviewed.. Continue same treatment. Continue with symptomatic treatment. Resume home medication. Monitor lytes and vitals. DVT and GI prophylaxis. Further recommendations of the clinical course of the patient DVT prophylaxis: Subcutaneous heparin GI Prophylaxis: Pepcid PT/OT: Pending Prognosis is guarded
[2019-05-14 12:57] LABS: Glucose,Whole Blood 84 mg/dL (75-99)
--- NOTE | 2019-05-14 13:42 | CT ---
EXAMINATION TYPE: CT foot LT w con DATE OF EXAM: 05/14/2019 COMPARISON: X-ray 05/09/2019 HISTORY: Left 2nd toe and big toe base swelling and bruising. CT DLP: 280.5 mGycm Automated exposure control for dose reduction was used. CONTRAST: Performed with IV Contrast, patient injected with 100 mL of Isovue M300. FINDINGS: There is no acute fracture/dislocation evident in the left foot. Moderate narrowing second PIP joint. Spurring superior calcaneus at the distal Achilles tendon is seen. Moderate size inferior calcaneal spur is noted. Mild diffuse subcutaneous edema. More focal mild/moderate swelling involving second toe without perio steal reaction or cortical destruction. Well-corticated density adjacent to the medial malleolus comp atible with previous trauma. Arthropathy first MTP joint. IMPRESSION: Next line 1. Soft tissue edema with no evidence of acute fracture or destructive change.
--- NOTE | 2019-05-14 15:03 | PN ---
PROGRESS NOTE DATE OF SERVICE: 05/14/2019. REASON FOR FOLLOWUP: Left second and big toe cellulitis. INTERVAL HISTORY: The patient is currently afebrile. However, the patient has been complaining of pain to the left second and the big toe which remains to be excruciating. She still has some swelling and redness currently without open wound or any drainage. Denies having any chest pain or shortness of breath. Did have some cough but not bringing up any sputum. No nausea, vomiting. No diarrhea. PHYSICAL EXAMINATION: Blood pressure 117/63 with a pulse of 98, temperature 98, she is 93% on room air. General description is an elderly female, lying in bed in no distress. RESPIRATORY SYSTEM: Unlabored breathing, clear to auscultation anteriorly. HEART: S1-S2 with regular rate and rhythm: ABDOMEN: Soft, no tenderness. Left second and big toe medial border remains to be swollen, slightly warm and tender to touch. No open wound or any drainage. LABS: Hemoglobin 11.2 with white count of 10.8, creatinine 0.5. DIAGNOSTIC IMPRESSION AND PLAN: Patient with left second and big toe cellulitis. Clinically, did not responding well to Unasyn, cefazolin as well as vancomycin. We will go ahead and obtain a CT of the left foot with contrast to rule out evidence of any abscess or bony destruction, and maybe for the surgical intervention. Will add Rocephin 2 g daily and continue vancomycin. Will monitor clinical course closely. Re-evaluate the patient tomorrow. Continue supportive care. MMODL / TERESAN: [id number] /
[2019-05-14] MEDS: VANCOMYCIN 1,250 MG in SODIUM CHLORIDE 0.9% 250 ML IVPB SCH (16:00)
[2019-05-14 17:28] LABS: Glucose,Whole Blood 91 mg/dL (75-99)
[2019-05-14] MEDS: traMADol 50 MG TAB PO PRN (19:27)
[2019-05-14 20:39] LABS: Glucose,Whole Blood 114 mg/dL (75-99)
[2019-05-14] MEDS: CALCIUM CARBONATE 500 MG CHEWABLE PO PRN (21:09)
[2019-05-15] MEDS: SODIUM CHLORIDE 0.9% 1,000 ML IV SCH ×2 (01:51→15:14)
[2019-05-15 06:49] LABS: Glucose,Whole Blood 102 mg/dL (75-99)
[2019-05-15] MEDS: INSULIN ASPART (NovoLOG) 100 UNIT/ML VIAL SQ SCH ×4 (06:56→20:18)
[2019-05-15] MEDS: LEVOTHYROXINE 50 MCG TAB PO SCH (06:58)
[2019-05-15] MEDS ORDERED: VANCOMYCIN TROUGH DUE 1 EACH MISC MISCELLANE ONE ×2 (07:00→23:00)
[2019-05-15 07:15] LABS: Calcium 9.1 mg/dL (8.4-10.2); Potassium 4.3 mmol/L (3.5-5.1); Uric Acid 5.7 mg/dL (3.7-7.4)
[2019-05-15] MEDS: ENOXAPARIN 40 MG/0.4 ML SYRINGE SQ SCH (08:33)
[2019-05-15] MEDS: CALCIUM CARBONATE 500 MG CHEWABLE PO PRN (08:33)
[2019-05-15] MEDS: ATORVASTATIN 40 MG TAB PO SCH (08:34)
[2019-05-15] MEDS: MAGNESIUM OXIDE 400 MG TAB PO SCH (08:34)
[2019-05-15] MEDS: LISINOPRIL 2.5 MG TAB PO SCH (08:34)
[2019-05-15] MEDS: FUROSEMIDE 40 MG TAB PO SCH (08:34)
[2019-05-15] MEDS: DIGOXIN 125 MCG TAB PO SCH (08:34)
[2019-05-15] MEDS: CLOPIDOGREL 75 MG TAB PO SCH (08:34)
[2019-05-15] MEDS: VANCOMYCIN 1,250 MG in SODIUM CHLORIDE 0.9% 250 ML IVPB SCH (08:50)
[2019-05-15 09:28] LABS: Basophils % (A) 0 %; Eosinophils # (A) 0.2 k/uL (0-0.7); Eosinophils % (A) 3 %; HCT 34.1 % (34.0-46.0); HGB 11.2 gm/dL (11.4-16.0); Lymphocytes # (A) 1.5 k/uL (1.0-4.8); Lymphocytes % (A) 18 %; MCH 30.9 pg (25.0-35.0); MCHC 32.8 g/dL (31.0-37.0); MCV 94.2 fL (80.0-100.0); Mean Platelet Volume 7.7; Monocytes # (A) 0.7 k/uL (0-1.0); Monocytes % (A) 8 %; Neutrophils # (A) 6.1 k/uL (1.3-7.7); Neutrophils % (A) 70 %; Platelet Count 267 k/uL (150-450); RBC 3.62 m/uL (3.80-5.40); RDW 15.4 % (11.5-15.5); WBC 8.8 k/uL (3.8-10.6)
[2019-05-15 10:42] LABS: Erythrocyte Sedimentation Rate 96 mm/hr (0-20)
[2019-05-15 12:06] LABS: Glucose,Whole Blood 122 mg/dL (75-99)
[2019-05-15 15:15] VITALS: BMI 26.6
[2019-05-15] MEDS: traMADol 50 MG TAB PO PRN ×3 (16:43→23:42)
[2019-05-15 17:11] LABS: Glucose,Whole Blood 98 mg/dL (75-99)
--- NOTE | 2019-05-15 19:31 | PN ---
PROGRESS NOTE DATE OF SERVICE: 05/15/2019. REASON FOR FOLLOWUP: Left 2nd toe cellulitis. INTERVAL HISTORY: The patient is currently afebrile. The patient has pain to the left big toe as well as the 2nd toe has decreased in intensity. The patient denies having any chest pain. No shortness of breath or cough. No nausea, vomiting or diarrhea. PHYSICAL EXAMINATION: Blood pressure is 126/62 with a pulse of 103, temperature 98.1. She is 95% on room air. General description is an elderly female up in the bed in no distress. Respiratory system: Unlabored breathing. Clear to auscultation anteriorly. Heart S1, S2. Regular rate and rhythm. Abdomen soft, no tenderness. Left 2nd toe as well as big toe swelling and redness has decreased with no wound or any drainage. LABS: Hemoglobin 9.1, white count 8.8. CT did not show any evidence of abscess or bony destruction. DIAGNOSTIC IMPRESSION AND PLAN: Patient with left second and big toe cellulitis. Did not have very good response to initial antibiotic therapy. However, seemed to be doing well on Rocephin that was started yesterday, hence we will continue the patient on the Rocephin 2 g daily as the patient did have poor IV access. We will go ahead and order midline as the patient may benefit from IV Rocephin in the outpatient setting for at least 2 weeks. was present at bedside. His questions and concerns were answered. NIKOS / MINA: [id number] / MTDD
[2019-05-15 20:18] LABS: Glucose,Whole Blood 126 mg/dL (75-99)
[2019-05-16] MEDS: LEVOTHYROXINE 50 MCG TAB PO SCH (06:28)
[2019-05-16 06:47] LABS: Basophils # (A) 0.1 k/uL (0-0.2); Basophils % (A) 1 %; Calcium 9.1 mg/dL (8.4-10.2); Eosinophils # (A) 0.3 k/uL (0-0.7); Eosinophils % (A) 3 %; HCT 33.8 % (34.0-46.0); HGB 11.4 gm/dL (11.4-16.0); Lymphocytes # (A) 2.3 k/uL (1.0-4.8); Lymphocytes % (A) 23 %; MCH 30.8 pg (25.0-35.0); MCHC 33.8 g/dL (31.0-37.0); MCV 91.2 fL (80.0-100.0); Mean Platelet Volume 7.9; Monocytes # (A) 0.9 k/uL (0-1.0); Monocytes % (A) 9 %; Neutrophils # (A) 6.3 k/uL (1.3-7.7); Neutrophils % (A) 63 %; Platelet Count 301 k/uL (150-450); Potassium 3.8 mmol/L (3.5-5.1); RDW 15.7 % (11.5-15.5)
[2019-05-16] MEDS: traMADol 50 MG TAB PO PRN (07:06)
[2019-05-16] MEDS: ONDANSETRON 4 MG/2 ML VIAL IVP PRN (07:09)
[2019-05-16 07:24] LABS: Glucose,Whole Blood 99 mg/dL (75-99)
[2019-05-16] MEDS: INSULIN ASPART (NovoLOG) 100 UNIT/ML VIAL SQ SCH ×4 (07:25→22:30)
--- NOTE | 2019-05-16 09:05 | P.PN ---
Subjective Progress Note Date: 05/15/19 Principal diagnosis: Cellulitis left second and great toe 69-year-old female patient admitted with cellulitis of left great and second toe; patient did not have good response to initial antibiotic therapy which was switched to IV Rocephin 2 g daily 05/15/2019; patient was seen and evaluated on the stated date; charting was however inadvertently missed and is completed on 05/16/2019 Patient is seen and evaluated in room with aspirin at bedside; has been has been fairly upset and is demanding for patient to be transferred to [facility]; I had detailed discussion with patient and her at bedside with case management present in the room; case advocate did explain to patient that patient's transfer and treatment at [facility] might not be covered by insurance due to no change in level of care at the time of transfer; I also adv ised patient that an accepting physician will be needed at the receiving facility and I will need to call patient report; patient and thanked this automatic typewriter inspector for explaining everything in detail in a way that they both understood and would like to wait for Dr. Galvez before making any further deci sions; per case management patient's chart has been copied and ready to be sent with the patient if they do decide further transfer Patient does report improvement in left toe pain Vital signs are stable with her blood pressure of 126/63, pulse 103, temperature of 98.1; SpO2 of 95% on room air Lab review shows a white blood count of 8.8; patient did have computed tomography scan done of left foot which did not show any evidence of abscess or bony destruction Patient will continue with IV Rocephin at this time; IV vancomycin has been discontinued by ID Await further recommendations once patient reevaluated by ID service Objective - Vital Signs Vital signs: Vital Signs Temp 98.5 F 05/16/19 00:00 Pulse 96 05/16/19 00:00 Resp 18 05/16/19 00:00 BP 132/72 05/16/19 00:00 Pulse Ox 95 05/16/19 00:00 Intake & Output 05/15/19 05/16/19 05/16/19 18:59 06:59 18:59 Intake Total 760 Balance 760 Weight 70.307 kg Intake: Oral 760 Other: # Voids 2 3 # Bowel Movements 1 1 - Exam GENERAL: The patient is alert and oriented x3, not in any acute distress. Well developed, well nourished. HEENT: Pupils are round and equally reacting to light. EOMI. No scleral icterus. No conjunctival pallor. Normocephalic, atraumatic. No pharyngeal erythema. No thyromegaly. CARDIOVASCULAR: S1 and S2 present. No murmurs, rubs, or gallops. PULMONARY: Chest is clear to auscultation, no wheezing or crackles. ABDOMEN: Soft, nontender, nondistended, normoactive bowel sounds. No palpable organomegaly. MUSCULOSKELETAL: No joint swelling or deformity. -EXTREMITIES: No cyanosis, clubbing, or pedal edema. Left toe is enlarged, right and tender. Slowly improving. Also she has pain and tenderness at the base of the big toe NEUROLOGICAL: Gross neurological examination did not reveal any focal deficits. SKIN: No rashes. - Labs CBC & Chem 7: 05/16/19 06:13 05/16/19 06:13 Labs: Abnormal Lab Results - Last 24 Hours (Table) 05/15/19 05/15/19 05/15/19 Range/Units 08:44 12:03 20:15 RBC 3.62 L (3.80-5.40) m/uL Hgb 11.2 L (11.4-16.0) gm/dL Hct (34.0-46.0) % RDW (11.5-15.5) % ESR 96 H (0-20) mm/hr Carbon Dioxide (22-30) mmol/L Glucose (74-99) mg/dL POC Glucose (mg/dL) 122 H 126 H (75-99) mg/dL 05/16/19 05/16/19 Range/Units 06:13 06:13 RBC 3.70 L (3.80-5.40) m/uL Hgb (11.4-16.0) gm/dL Hct 33.8 L (34.0-46.0) % RDW 15.7 H (11.5-15.5) % ESR (0-20) mm/hr Carbon Dioxide 33 H (22-30) mmol/L Glucose 104 H (74-99) mg/dL POC Glucose (mg/dL) (75-99) mg/dL Microbiology - Last 24 Hours (Table) 05/09/19 22:27 Blood Culture - Final Blood No Growth after 144 hours Assessment and Plan Assessment: 1. Left toe cellulitis. Rule out abscess or osteomyelitis of the toe 2. Systemic inflammatory response with leukocytosis and tachycardia, present on admission as had WBC of 12 K and heart rate more than 90 3. Sepsis secondary to above 4. Possible gouty arthritis of the big toe, uric acid is pending 5. Severe hypomagnesemia, improved 6. Generalized weakness, secondary to both 7. Diabetes mellitus 8. Hypertension, Her blood pressure currently on the low normal site 9. History of coronary artery disease 10. Chronic systolic severe ischemic cardiomyopathy with ejection fraction 25- 30%. Status post AICD 11. Hypothyroidism 12. Remote history of left breast cancer status post mastectomy and chemoradiotherapy, 13. 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 Plan: This is a pleasant 69 years old female who presents with left toe cellulitis. Continue with antibiotics.. Infectious disease consult is appreciated, and we will follow the recommendation. patient antibiotics was changed to IV vancomycin. Check CAT scan of the foot to rule out osteomyelitis. Check uric acid for possible gouty arthritis. Continue with IV fluids, but lowered to 50 mL per hour and restart Lasix. Check C. diff Labs and medication were reviewed.. Continue same treatment. Continue with symptomatic treatment. Resume home medication. Monitor lytes and vitals. DVT and GI prophylaxis. Further recommendations of the clinical course of the patient DVT prophylaxis: Subcutaneous heparin GI Prophylaxis: Pepcid PT/OT: Pending Time with Patient: Greater than 30
[2019-05-16] MEDS: MAGNESIUM OXIDE 400 MG TAB PO SCH (10:54)
[2019-05-16] MEDS: LISINOPRIL 2.5 MG TAB PO SCH (10:54)
[2019-05-16] MEDS: ENOXAPARIN 40 MG/0.4 ML SYRINGE SQ SCH (10:54)
[2019-05-16] MEDS: ATORVASTATIN 40 MG TAB PO SCH (10:55)
[2019-05-16] MEDS: CLOPIDOGREL 75 MG TAB PO SCH (10:55)
[2019-05-16] MEDS: DIGOXIN 125 MCG TAB PO SCH (10:55)
[2019-05-16] MEDS: FUROSEMIDE 40 MG TAB PO SCH (10:56)
[2019-05-16 12:45] LABS: Glucose,Whole Blood 109 mg/dL (75-99)
[2019-05-16 16:48] LABS: Glucose,Whole Blood 120 mg/dL (75-99)
[2019-05-16 21:41] LABS: Glucose,Whole Blood 112 mg/dL (75-99)
[2019-05-17] MEDS: LEVOTHYROXINE 50 MCG TAB PO SCH (06:46)
[2019-05-17 06:55] LABS: Glucose,Whole Blood 92 mg/dL (75-99)
[2019-05-17] MEDS: SODIUM CHLORIDE 0.9% 1,000 ML IV SCH ×2 (07:53→21:13)
[2019-05-17] MEDS: INSULIN ASPART (NovoLOG) 100 UNIT/ML VIAL SQ SCH ×4 (07:53→20:55)
[2019-05-17] MEDS: ATORVASTATIN 40 MG TAB PO SCH (08:39)
[2019-05-17] MEDS: MAGNESIUM OXIDE 400 MG TAB PO SCH (08:39)
[2019-05-17] MEDS: FUROSEMIDE 40 MG TAB PO SCH (08:39)
[2019-05-17] MEDS: DIGOXIN 125 MCG TAB PO SCH (08:39)
[2019-05-17] MEDS: CLOPIDOGREL 75 MG TAB PO SCH (08:39)
[2019-05-17] MEDS: ENOXAPARIN 40 MG/0.4 ML SYRINGE SQ SCH (08:39)
[2019-05-17] MEDS: LISINOPRIL 2.5 MG TAB PO SCH (08:39)
--- NOTE | 2019-05-17 10:11 | P.PN ---
Subjective Progress Note Date: 05/16/19 Principal diagnosis: Cellulitis left second and great toe 69-year-old female patient admitted with cellulitis of left great and second toe; patient did not have good response to initial antibiotic therapy which was switched to IV Rocephin 2 g daily 05/15/2019; patient was seen and evaluated on the stated date; charting was however inadvertently missed and is completed on 05/16/2019 Patient is seen and evaluated in room with aspirin at bedside; has been has been fairly upset and is demanding for patient to be transferred to [facility]; I had detailed discussion with patient and her at bedside with case management present in the room; caser did explain to patient that patient's transfer and treatment at [facility] might not be covered by insurance due to no change in level of care at the time of transfer; I also adv ised patient that an accepting physician will be needed at the receiving facility and I will need to call patient report; patient and thanked this contract writer for explaining everything in detail in a way that they both understood and would like to wait for Dr. Galvez before making any further deci sions; per case management patient's chart has been copied and ready to be sent with the patient if they do decide further transfer Patient does report improvement in left toe pain Vital signs are stable with her blood pressure of 126/63, pulse 103, temperature of 98.1; SpO2 of 95% on room air Lab review shows a white blood count of 8.8; patient did have computed tomography scan done of left foot which did not show any evidence of abscess or bony destruction Patient will continue with IV Rocephin at this time; IV vancomycin has been discontinued by ID Await further recommendations once patient reevaluated by ID service 05/16/2019 Patient is seen and evaluated ambulating from the room to the nurses station; patient seems to be satisfied with improvement; relates that she was not able to put any pressure on the foot but has improved to a point where she is able to walk through the hallway; patient also thanked this contract writer and stated she was very happy not to have transferred out of this facility and is satisfied with the improvement in cellulitis ID remains on board and patient's antibiotics have been switched to IV Rocephin 2 g daily; ID recommending prolonged IV antibiotic treatment with Rocephin 2 g daily even post discharge for at least 2 weeks; patient does have a midline; await further recommendations from ID for final tapering off IV antibiotic th erapy Objective - Vital Signs Vital signs: Vital Signs Temp 98.4 F 05/16/19 09:01 Pulse 99 05/16/19 09:01 Resp 20 05/16/19 09:01 BP 134/79 05/16/19 09:01 Pulse Ox 95 05/16/19 09:01 Intake & Output 05/15/19 05/16/19 05/16/19 18:59 06:59 18:59 Intake Total 760 Balance 760 Weight 70.307 kg Intake: Oral 760 Other: # Voids 2 3 # Bowel Movements 1 1 - Exam GENERAL: The patient is alert and oriented x3, not in any acute distress. Well developed, well nourished. HEENT: Pupils are round and equally reacting to light. EOMI. No scleral icterus. No conjunctival pallor. Normocephalic, atraumatic. No pharyngeal erythema. No thyromegaly. CARDIOVASCULAR: S1 and S2 present. No murmurs, rubs, or gallops. PULMONARY: Chest is clear to auscultation, no wheezing or crackles. ABDOMEN: Soft, nontender, nondistended, normoactive bowel sounds. No palpable organomegaly. MUSCULOSKELETAL: No joint swelling or deformity. -EXTREMITIES: No cyanosis, clubbing, or pedal edema. Left toe is enlarged, right and tender. Slowly improving. Also she has pain and tenderness at the base of the big toe NEUROLOGICAL: Gross neurological examination did not reveal any focal deficits. SKIN: No rashes. - Labs CBC & Chem 7: 05/16/19 06:13 05/16/19 06:13 Labs: Abnormal Lab Results - Last 24 Hours (Table) 05/15/19 05/15/19 05/16/19 Range/Units 12:03 20:15 06:13 RBC 3.70 L (3.80-5.40) m/uL Hct 33.8 L (34.0-46.0) % RDW 15.7 H (11.5-15.5) % Carbon Dioxide (22-30) mmol/L Glucose (74-99) mg/dL POC Glucose (mg/dL) 122 H 126 H (75-99) mg/dL 08/10/19 Range/Units 06:13 RBC (3.80-5.40) m/uL Hct (34.0-46.0) % RDW (11.5-15.5) % Carbon Dioxide 33 H (22-30) mmol/L Glucose 104 H (74-99) mg/dL POC Glucose (mg/dL) (75-99) mg/dL Microbiology - Last 24 Hours (Table) 05/09/19 22:27 Blood Culture - Final Blood No Growth after 144 hours Assessment and Plan Assessment: 1. Left toe cellulitis. Rule out abscess or osteomyelitis of the toe 2. Systemic inflammatory response with leukocytosis and tachycardia, present on admission as had WBC of 12 K and heart rate more than 90 3. Sepsis secondary to above 4. Possible gouty arthritis of the big toe, uric acid is pending 5. Severe hypomagnesemia, improved 6. Generalized weakness, secondary to both 7. Diabetes mellitus 8. Hypertension, Her blood pressure currently on the low normal site 9. History of coronary artery disease 10. Chronic systolic severe ischemic cardiomyopathy with ejection fraction 25- 30%. Status post AICD 11. Hypothyroidism 12. Remote history of left breast cancer status post mastectomy and chemoradiotherapy, 13. 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 Plan: This is a pleasant 69 years old female who presents with left toe cellulitis. Continue with antibiotics.. Infectious disease consult is appreciated, and we will follow the recommendation. patient antibiotics was changed to IV vancomycin. Check CAT scan of the foot to rule out osteomyelitis. Check uric acid for possible gouty arthritis. Continue with IV fluids, but lowered to 50 mL per hour and restart Lasix. Check C. diff Labs and medication were reviewed.. Continue same treatment. Continue with symptomatic treatment. Resume home medication. Monitor lytes and vitals. DVT and GI prophylaxis. Further recommendations of the clinical course of the patient DVT prophylaxis: Subcutaneous heparin GI Prophylaxis: Pepcid PT/OT: Pending Time with Patient: Greater than 30
--- NOTE | 2019-05-17 14:13 | P.PN ---
Subjective Progress Note Date: 05/17/19 Principal diagnosis: Cellulitis left second and great toe 69-year-old female patient admitted with cellulitis of left great and second toe; patient did not have good response to initial antibiotic therapy which was switched to IV Rocephin 2 g daily 05/15/2019; patient was seen and evaluated on the stated date; charting was however inadvertently missed and is completed on 05/16/2019 Patient is seen and evaluated in room with aspirin at bedside; has been has been fairly upset and is demanding for patient to be transferred to [facility]; I had detailed discussion with patient and her at bedside with case management present in the room; case management social worker did explain to patient that patient's transfer and treatment at [facility] might not be covered by insurance due to no change in level of care at the time of transfer; I also adv ised patient that an accepting physician will be needed at the receiving facility and I will need to call patient report; patient and thanked this blurb writer for explaining everything in detail in a way that they both understood and would like to wait for Dr. Galvez before making any further deci sions; per case management patient's chart has been copied and ready to be sent with the patient if they do decide further transfer Patient does report improvement in left toe pain Vital signs are stable with her blood pressure of 126/63, pulse 103, temperature of 98.1; SpO2 of 95% on room air Lab review shows a white blood count of 8.8; patient did have computed tomography scan done of left foot which did not show any evidence of abscess or bony destruction Patient will continue with IV Rocephin at this time; IV vancomycin has been discontinued by ID Await further recommendations once patient reevaluated by ID service 05/16/2019 Patient is seen and evaluated ambulating from the room to the nurses station; patient seems to be satisfied with improvement; relates that she was not able to put any pressure on the foot but has improved to a point where she is able to walk through the hallway; patient also thanked this blurb writer and stated she was very happy not to have transferred out of this facility and is satisfied with the improvement in cellulitis ID remains on board and patient's antibiotics have been switched to IV Rocephin 2 g daily; ID recommending prolonged IV antibiotic treatment with Rocephin 2 g daily even post discharge for at least 2 weeks; patient does have a midline; await further recommendations from ID for final tapering off IV antibiotic th abelpy 05/17/2019 Patient is seen and evaluated in the room at bedside; patient reports marked improvement in symptoms and swelling of the toe Vital signs are reviewed temperature of 98.1, pulse 95, respiration 18 and blood pressure 133/74 with SpO2 of 93% on room air Patient remains on IV Rocephin 2 g daily for cellulitis of right foot; IDs following and recommending prolonged IV antibiotic therapy for at least 2 weeks post discharge for complete resolution of infection Objective - Vital Signs Vital signs: Vital Signs Temp 98.3 F 05/17/19 08:42 Pulse 103 H 05/17/19 08:42 Resp 16 05/17/19 08:42 BP 134/70 05/17/19 08:42 Pulse Ox 95 05/17/19 08:42 Intake & Output 05/16/19 05/17/19 05/17/19 18:59 06:59 18:59 Intake Total 910 Balance 910 Intake: Oral 910 Other: Voiding Method Toilet # Voids 2 1 1 # Bowel Movements 1 - Labs CBC & Chem 7: 05/16/19 06:13 05/16/19 06:13 Labs: Abnormal Lab Results - Last 24 Hours (Table) 05/16/19 05/16/19 05/16/19 Range/Units 12:41 16:46 21:36 POC Glucose (mg/dL) 109 H 120 H 112 H (75-99) mg/dL
[2019-05-17 20:48] LABS: Glucose,Whole Blood 106 mg/dL (75-99)
[2019-05-17] MEDS ORDERED: methylPREDNISolone SOD SUCCI 125 MG/2 ML VIAL IV STA (20:48)
--- NOTE | 2019-05-18 01:57 | PN ---
PROGRESS NOTE DATE OF SERVICE: 05/17/2019. REASON FOR FOLLOWUP: [place] with right 2nd toe and foot cellulitis versus gouty arthritis. INTERVAL HISTORY: The patient is currently afebrile. The patient has been breathing comfortably. The patient denies having any chest pain or any cough. No nausea, vomiting. The right 2nd toe pain has improved. The main toe remains to be the wound pain in the bed of the big toe. PHYSICAL EXAMINATION: Blood pressure 133/65 with a pulse of 103, temperature 98.8, she is 90% on room air. General description is an elderly female, lying in bed in no distress. Respiratory system: Unlabored breathing, clear to auscultation anteriorly heart S1, S2. Regular rate and rhythm. ABDOMEN: Soft, no tenderness. Left 2nd toe swelling has improved. She did have tenderness at the base of the left great toe. DIAGNOSTIC IMPRESSION AND PLAN: Patient with left 2nd toe and left index to pain swelling redness with initial concern for cellulitis with question of possible ongoing non gouty arthritis as the patient's uric acid was normal. We will give her a dose of Solu-Medrol and the patient did show overall improvement. May benefit from a short course of oral steroids in the outpatient setting along with oral antibiotics. Will reevaluate the patient tomorrow and if she responds to the steroids, continue with the Rocephin at this point. Questions and concerns were answered. MMODL / IJN: [id number] /
[2019-05-18] MEDS: LEVOTHYROXINE 50 MCG TAB PO SCH (06:28)
[2019-05-18 06:38] LABS: Glucose,Whole Blood 160 mg/dL (75-99)
[2019-05-18] MEDS: INSULIN ASPART (NovoLOG) 100 UNIT/ML VIAL SQ SCH ×2 (06:39→12:48)
[2019-05-18 08:06] VITALS: BP 139/80; RESP 18; TEMP 98.2
[2019-05-18] MEDS: ENOXAPARIN 40 MG/0.4 ML SYRINGE SQ SCH (08:19)
[2019-05-18] MEDS: ATORVASTATIN 40 MG TAB PO SCH (08:20)
[2019-05-18] MEDS: FUROSEMIDE 40 MG TAB PO SCH (08:20)
[2019-05-18] MEDS: CLOPIDOGREL 75 MG TAB PO SCH (08:20)
[2019-05-18] MEDS: MAGNESIUM OXIDE 400 MG TAB PO SCH (08:20)
[2019-05-18] MEDS: DIGOXIN 125 MCG TAB PO SCH (08:21)
[2019-05-18] MEDS: LISINOPRIL 2.5 MG TAB PO SCH (08:21)
[2019-05-18 08:28] LABS: Calcium 9.8 mg/dL (8.4-10.2); Potassium 3.9 mmol/L (3.5-5.1)
[2019-05-18 08:40] VITALS: PULSE 104
[2019-05-18 09:10] LABS: Basophils % (A) 0 %; Eosinophils % (A) 0 %; HCT 40.6 % (34.0-46.0); HGB 13.8 gm/dL (11.4-16.0); Lymphocytes # (A) 1.7 k/uL (1.0-4.8); Lymphocytes % (A) 20 %; MCH 31.2 pg (25.0-35.0); MCHC 34.1 g/dL (31.0-37.0); MCV 91.6 fL (80.0-100.0); Mean Platelet Volume 8.4; Monocytes # (A) 0.3 k/uL (0-1.0); Monocytes % (A) 3 %; Neutrophils # (A) 6.7 k/uL (1.3-7.7); Neutrophils % (A) 76 %; Platelet Count 342 k/uL (150-450); RBC 4.43 m/uL (3.80-5.40); WBC 8.8 k/uL (3.8-10.6)
[2019-05-18 12:44] LABS: Glucose,Whole Blood 105 mg/dL (75-99)
--- NOTE | 2019-05-18 13:07 | PN ---
PROGRESS NOTE DATE OF SERVICE: 05/18/2019 REASON FOR FOLLOWUP: Left second toe cellulitis. INTERVAL HISTORY: The patient is currently afebrile. Patient overall is feeling better. Breathing comfortably. Pain and discomfort to left second toe improved; however, much improvement on the left big base pain after steroid injection. The patient denies having any chest pain, shortness of breath or cough. No abdominal pain or diarrhea. PHYSICAL EXAMINATION: On examination, blood pressure 139/80 with a pulse of 80, temperature 98.2. She is 97% on room air. General description is an elderly female up in the chair in no distress. RESPIRATORY SYSTEM: Unlabored breathing, clear to auscultation anteriorly. HEART: S1, S2. Regular rate and rhythm. ABDOMEN: Soft, no tenderness. Left second toe swelling and redness has decreased, less tender to touch. LABS: Hemoglobin is 13.8, white count 8.8. BUN of 20, creatinine 0.91. DIAGNOSTIC IMPRESSION AND PLAN: 1. Patient with left second toe cellulitis. Clinical improvement on Rocephin to continue for at least 2 weeks in outpatient setting. Prescription has been provided to the patient. 2. The patient with left big toe base pain, question of possible body non gouty arthritis. Overall improvement on steroids, which may elevate her blood sugar. Hence, recommend nonsteroidal anti-inflammatory medication per admitting team. Questions and concerns were answered. MMODL / IJN: [id number] / MTDAaron
--- NOTE | 2019-05-18 15:12 | P.DS ---
Providers Date of admission: 05/09/19 22:58 Attending physician: Lito Oates Consults: 05/12/19 09:35 Consult Physician Urgent Consulting Provider: Marilee Galvez Consult Reason/Comments: worsening left toe cellulitis Do you want consulting provider notified?: Yes Primary care physician: Tamika Arechiga [place] [facility] Course: Diagnoses: left toe cellulitis. Improvement Systemic inflammatory response with leukocytosis and tachycardia, present on admission as had WBC of 12 K and heart rate more than 90. improved Sepsis secondary to above . Improvement Possible gouty arthritis of the big toe, uric acid is 9.8. severe hypomagnesemia, improved generalized weakness, secondary to both . Improved. PT/OT: Recommended home Diabetes mellitus Hypertension, Her blood pressure currently on the low normal site History of coronary artery disease Chronic systolic severe ischemic cardiomyopathy with ejection fraction 25-30%. 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 Hospital course: This is a pleasant 69 years old with past medical history of coronary artery disease, diabetes mellitus, GERD, hypertension, thyroid disorder, asthma. He presents because of left toe cellulitis. Patient was treated with several antibiotics, she's been evaluated by infectious disease recommendation. Eventually patient starts improving while on ceftriaxone 2 g daily. Patient showed interval improvement and her inflammation with redness and swelling and tenderness are significantly improved over her left second toe. ID team recommended ceftriaxone for 2 weeks. Ventrally, midline is placed on her right upper extremity. On the day of discharge patient denies chest pain or dyspnea. No change in urine or bowel habits. No fever. No abdominal pain. Patient agrees to be discharged home. Problems and management plan were discussed with the patient and he verbalized understanding and acceptance Patient was found stable and can be discharged home however he needs follow-up as an outpatient. Patient was selected to follow-up with her PCP and ID team in one week, she told me she already got appointment and she has them and her notes. And that she is going to follow Gen: patient is a AAOx3, no distress CVS: S1-S2, RRR, no murmur Lungs: B/L CTA, no wheezing Abdomen: soft, no distention, no tenderness, positive bowel sounds Extremity: no leg edema or induration. Left total redness, swelling and tenderness, significantly improved Time spent more than 35 minutes Patient Condition at Discharge: Good Plan - Discharge Summary Discharge Rx Participant: No New Discharge Prescriptions: No Action Clopidogrel [Plavix] 75 mg PO DAILY tab Digoxin [Lanoxin] 125 mcg PO DAILY tab Furosemide [Lasix] 40 mg PO DAILY Spironolactone [Aldactone] 25 mg PO DAILY Levothyroxine Sodium [Synthroid] 50 mcg PO DAILY Atorvastatin [Lipitor] 40 mg PO DAILY metFORMIN HCL [Glucophage] 500 mg PO BID Ibuprofen/Diphenhydramine HCl [Advil Pm Liqui-Gels] 2 cap PO HS Lisinopril [Zestril] 2.5 mg PO DAILY Discharge Medication List Clopidogrel [Plavix] 75 mg PO DAILY tab 01/01/17 [Rx] Digoxin [Lanoxin] 125 mcg PO DAILY tab 01/01/17 [Rx] Furosemide [Lasix] 40 mg PO DAILY 08/04/17 [History] Spironolactone [Aldactone] 25 mg PO DAILY 08/04/17 [History] Atorvastatin [Lipitor] 40 mg PO DAILY 01/01/18 [History] Levothyroxine Sodium [Synthroid] 50 mcg PO DAILY 01/01/18 [History] metFORMIN HCL [Glucophage] 500 mg PO BID 05/09/19 [History] Lisinopril [Zestril] 2.5 mg PO DAILY 05/10/19 [History] cefTRIAXone [Rocephin] 2 gm IVPB Q24HR vial 05/18/19 [Rx] traMADol HCl [Ultram] 50 mg PO Q12HR PRN #6 tab 05/18/19 [Rx] Follow up Appointment(s)/Referral(s): Tamika Arechiga MD [Primary Care Provider] - 1-2 days [facility],Infusion [NON-STAFF] - 1 Week Marilee Galvez MD [STAFF PHYSICIAN] - 1 Week Activity/Diet/Wound Care/Special Instructions: pt to go to [facility] office tomorrow 05/19/19 between 1-[address] office[address] Dr Galvez's office will coordinate your recheck appt with him for 1 week when you come to the infusion center on 05/19/19 Discharge Disposition: HOME SELF-CARE
== END 2019-05-18 15:40 | disposition home or self-care (01) | DRG 872 ==
LOC: EC 21:22 → 6PED 22:58 → OBSVTOIN 22:58
PROVIDERS: ADMIT Hospitalist; ATTEND Hospitalist
PROC: 05HB33Z Insertion of Infusion Device into Right Basilic Vein, Percutaneous Approach (ICD-10-PCS; principal; 2019-05-15 14:45)
DX: A41.9 Sepsis, unspecified organism (principal); E11.628 Type 2 diabetes mellitus with other skin complications; E83.42 Hypomagnesemia; L03.032 Cellulitis of left toe; I25.5 Ischemic cardiomyopathy; I10 Essential (primary) hypertension; I25.10 Atherosclerotic heart disease of native coronary artery without angina pectoris; E03.9 Hypothyroidism, unspecified; K21.9 Gastro-esophageal reflux disease without esophagitis; J45.909 Unspecified asthma, uncomplicated; I25.2 Old myocardial infarction; Z79.02 Long term (current) use of antithrombotics/antiplatelets; Z79.84 Long term (current) use of oral hypoglycemic drugs; Z79.890 Hormone replacement therapy; Z79.899 Other long term (current) drug therapy; Z95.1 Presence of aortocoronary bypass graft; Z85.3 Personal history of malignant neoplasm of breast; Z90.11 Acquired absence of right breast and nipple; Z92.21 Personal history of antineoplastic chemotherapy; Z92.3 Personal history of irradiation; Z85.72 Personal history of non-Hodgkin lymphomas; Z95.810 Presence of automatic (implantable) cardiac defibrillator; Z87.01 Personal history of pneumonia (recurrent); Z90.49 Acquired absence of other specified parts of digestive tract; Z90.710 Acquired absence of both cervix and uterus; Z90.722 Acquired absence of ovaries, bilateral; Z86.19 Personal history of other infectious and parasitic diseases; Z98.51 Tubal ligation status; Z98.42 Cataract extraction status, left eye; Z83.3 Family history of diabetes mellitus; Z80.1 Family history of malignant neoplasm of trachea, bronchus and lung; Z80.3 Family history of malignant neoplasm of breast; Z82.49 Family history of ischemic heart disease and other diseases of the circulatory system
CPT/HCPCS: 36410; 36415; 76937; 80048; 80053; 81003; 83036; 83605; 83735; 84100; 84484; 84550; 85025; 85652; 86140; 87040; 93005; 96361; 96365; 99285

== ENCOUNTER → 2019-05-30 | Outpatient (CLI) | payer MEDICARE, BC ==
[2019-05-30 10:22] LABS: Basophils # (A) 0.1 k/uL (0-0.2); Basophils % (A) 1 %; Eosinophils # (A) 0.2 k/uL (0-0.7); Eosinophils % (A) 2 %; HCT 40.6 % (34.0-46.0); HGB 13.1 gm/dL (11.4-16.0); Lymphocytes # (A) 2.8 k/uL (1.0-4.8); Lymphocytes % (A) 27 %; MCH 29.8 pg (25.0-35.0); MCHC 32.4 g/dL (31.0-37.0); MCV 92.1 fL (80.0-100.0); Monocytes # (A) 0.6 k/uL (0-1.0); Monocytes % (A) 6 %; Neutrophils # (A) 6.2 k/uL (1.3-7.7); Neutrophils % (A) 61 %; Platelet Count 272 k/uL (150-450); RBC 4.41 m/uL (3.80-5.40); RDW 14.7 % (11.5-15.5); WBC 10.2 k/uL (3.8-10.6)
[2019-05-30 13:41] LABS: Erythrocyte Sedimentation Rate 18 mm/hr (0-20)
[2019-05-30 17:49] LABS: Rheumatoid Factor 10 IU/mL (0-15)
[2019-06-01 10:16] LABS: Cyclic Citrull Pep IgG Unit <0.5 U/mL; Cyclic Citrullinated Pep IgG NEGATIVE (NEGATIVE)
== END | disposition home or self-care (01) ==
LOC: LABWHC1 09:38
PROVIDERS: ATTEND Podiatrist Foot & Ankle Surgery
DX: M00.879 Arthritis due to other bacteria, unspecified ankle and foot (principal)
CPT/HCPCS: 36415; 85025; 85652; 86038; 86140; 86200; 86431

== ENCOUNTER → 2020-08-17 | Outpatient (CLI) | payer MEDICARE, BC | END | disposition home or self-care (01) | LOC: LABWHC1 13:59 | PROVIDERS: ATTEND Internal Medicine Hematology & Oncology | DX: Z20.828 Contact with and (suspected) exposure to other viral communicable diseases (principal) | CPT/HCPCS: U0003; C9803 ==

== ENCOUNTER 2022-08-13 13:56 | Emergency (ER) | payer MEDICARE, BC ==
[2022-08-13 14:31] VITALS: PULSE 87; TEMP 98
[2022-08-13] MEDS ORDERED: ONDANSETRON 4 MG/2 ML VIAL IVP STA (15:30)
[2022-08-13] MEDS ORDERED: SODIUM CHLORIDE 0.9% 1,000 ML IV STA (15:30)
[2022-08-13 16:15] LABS: Anisocytosis Slight; Basophils # (A) 0.1 k/uL (0-0.2); Basophils % (A) 1 %; Eosinophils # (A) 0.1 k/uL (0-0.7); Eosinophils % (A) 1 %; HCT 40.2 % (34.0-46.0); HGB 13.3 gm/dL (11.4-16.0); Hypochromasia Slight; Lymphocytes # (A) 2.5 k/uL (1.0-4.8); Lymphocytes % (A) 23 %; MCH 30.3 pg (25.0-35.0); MCV 91.6 fL (80.0-100.0); Mean Platelet Volume 9.3; Monocytes # (A) 0.7 k/uL (0-1.0); Monocytes % (A) 6 %; Neutrophils # (A) 7.4 k/uL (1.3-7.7); Neutrophils % (A) 67 %; Platelet Count 204 k/uL (150-450); RBC 4.39 m/uL (3.80-5.40); RDW 16.5 % (11.5-15.5); WBC 11.1 k/uL (3.8-10.6)
[2022-08-13 16:16] LABS: Appearance,Urine Clear (Clear); Bilirubin,Urine Negative (Negative); Blood,Urine Negative (Negative); Color,Urine Light Yellow; Glucose,Urine (UA) 4+ (Negative); Ketones,Urine Negative (Negative); Leukocyte Esterase,Urine Negative (Negative); Nitrite,Urine Negative (Negative); Protein,Urine Negative (Negative); Specific Gravity,Urine 1.009 (1.001-1.035); Urobilinogen,Urine <2.0 mg/dL (<2.0)
--- NOTE | 2022-08-13 16:19 | XR ---
EXAMINATION TYPE: XR KUB DATE OF EXAM: 08/13/2022 4:06 PM CLINICAL HISTORY: Vomiting and abdominal pain. TECHNIQUE: Two Upright KUB images of the abdomen are obtained. COMPARISON: CT abdomen and pelvis 2016. FINDINGS: Some paucity of bowel gas. Gas seen in nondistended stomach. Some scattered gas seen in non distended small and large bowel loops. Cholecystectomy clips are redemonstrated. Partial visualizatio n of overlying sternal wires along with new right ventricular defibrillator/pacemaker lead. Left basi lar opacity favors chronic parenchymal fibrosis. No free air is seen. Osseous structures are intact. IMPRESSION: Overall nonspecific strongly favor nonobstructive bowel gas pattern.
[2022-08-13 16:21] LABS: Albumin 5.1 g/dL (3.5-5.0); Calcium 9.9 mg/dL (8.4-10.2); Potassium 4.7 mmol/L (3.5-5.1); Total Bilirubin 1.2 mg/dL (0.2-1.3); Total Protein 8.3 g/dL (6.3-8.2)
[2022-08-13] MEDS ORDERED: Acetaminophen-Codeine 300-30mg TAB PO STA (16:29)
[2022-08-13] MEDS ORDERED: ACET/COD 300 MG/30 MG STARTER PACK 6 TAB BTL PO STA (17:20)
[2022-08-13] MEDS ORDERED: ONDANSETRON 4 MG ODT STARTER PACK 2 TAB BTL PO STA (17:20)
--- NOTE | 2022-08-13 17:20 | ED ---
ENT HPI - General Chief complaint: Dental/Oral Stated complaint: Vomiting,Possible tooth infection Time Seen by Provider: 08/13/22 15:13 Source: patient Mode of arrival: ambulatory Limitations: no limitations - History of Present Illness Initial comments: Patient is a 72-year-old female presenting with chief complaint of dental pain. Located left fall, pain is been ongoing for the last 2 weeks. Patient has known dental caries in this area, currently has a dentist appointment to remove the affected teeth. She states that over the last day or so pain is been increasing. She is worried about possible infection. She admits to swelling. She also admits to nausea and vomiting that started yesterday. No abdominal pain. No difficulty breathing or swallowing. No chest pain. No fever or chills. No trismus. No diarrhea, hematochezia, melena. - Related Data Home Medications Medication Instructions Recorded Confirmed Furosemide [Lasix] 40 mg PO DAILY 08/04/17 05/09/19 Spironolactone [Aldactone] 25 mg PO DAILY 08/04/17 05/09/19 Atorvastatin [Lipitor] 40 mg PO DAILY 01/01/18 05/09/19 Levothyroxine Sodium [Synthroid] 50 mcg PO DAILY 01/01/18 05/09/19 metFORMIN HCL [Glucophage] 500 mg PO BID 05/09/19 05/09/19 lisinopriL [Zestril] 2.5 mg PO DAILY 05/10/19 05/10/19 Previous Rx's Medication Instructions Recorded Clopidogrel [Plavix] 75 mg PO DAILY tab 01/01/17 Digoxin [Lanoxin] 125 mcg PO DAILY tab 01/01/17 cefTRIAXone [Rocephin] 2 gm IVPB Q24HR vial 05/18/19 traMADol HCl [Ultram] 50 mg PO Q12HR PRN #6 tab 05/18/19 Penicillin V Potassium [Pen Vee K] 500 mg PO QID 7 Days #28 tablet 08/13/22 Allergies Allergy/AdvReac Type Severity Reaction Status Date / Time ampicillin [From Unasyn] AdvReac Severe Nausea & Verified 05/14/19 12:26 Vomiting sulbactam [From Unasyn] AdvReac Severe Nausea & Verified 05/14/19 12:26 Vomiting acetaminophen [From [place]] AdvReac Intermediate Nausea & Verified 05/10/19 19:05 Vomiting hydrocodone [From [place]] AdvReac Intermediate Nausea & Verified 05/10/19 19:05 Vomiting Review of Systems ROS Statement: Those systems with pertinent positive or pertinent negative responses have been documented in the HPI. ROS Other: All systems not noted in ROS Statement are negative. Past Medical History Past Medical History: Asthma, Coronary Artery Disease (CAD), Cancer, Diabetes Mellitus, GERD/Reflux, Hypertension, Myocardial Infarction ([place]), Pneumonia, Thyroid Disorder Additional Past Medical History / Comment(s): NSTEMI in September 2016 with subsequent coronary artery bypass grafting x 1, BRAR to the LAD, in October 26. Severe ischemic cardiomyopathy with estimated ejection fraction 25-30%. Pending AICD placement. Admitted for hypotension in 11-13-16. Remote history of left Breast cancer stage 4(1994) had mastectomy and radiation/chemo,had genetic testing done,was poisitve for BRCA 2 gene mutation, so had elective right mastectomy done. 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 Salgado. She received 4 chemo tx, pne/sepsis Last Myocardial Infarction Date:: History of Any Multi-Drug Resistant Organisms: C-DIFF Date of last positivie culture/infection: 10/2016 MDRO Source:: stool Past Surgical History: Appendectomy, Breast Surgery, Cholecystectomy, Coronary Bypass/CABG, Heart Catheterization, Hysterectomy, Tubal Ligation Additional Past Surgical History / Comment(s): LT BREAST WAS POSTIVE FOR CANCER STAGE 4 cancer-had masectomy. 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 PT TESTED POSITIVE FOR BRCA 2 GENE.then 8 YEARS AGO HAD RT BREAST REMOVED (prophylactically). lt cataract removed, 10-07-16 CABG( 1 VESSEL), LT INTERNAL MAMMARY ARTERY TO LEFT ANT DESCENDING ARTERY. EVAN OOPHERECTOMY(PROPHYLATIC), LUNG NODULE REMOVED(CANCEROUS-lymhoma- AND RECEIVED SEVERAL CHEMO tx, several ve nous access devices since removed. Past Anesthesia/Blood Transfusion Reactions: No Reported Reaction Additional Past Anesthesia/Blood Transfusion Reaction / Comment(s): takes a bit to wake up after aa Past Psychological History: No Psychological Hx Reported Past Alcohol Use History: None Reported Past Drug Use History: None Reported - Past Family History Mother Family Medical History: Diabetes Mellitus Additional Family Medical History / Comment(s): heart valve replacment Father Family Medical History: Cancer Additional Family Medical History / Comment(s): lung cancer Sister(s) Family Medical History: Cancer Additional Family Medical History / Comment(s): breast cancer General Exam Limitations: no limitations General appearance: alert, in no apparent distress Head exam: Present: atraumatic, normocephalic, normal inspection ENT exam: Present: normal exam Expanded Mouth exam: Present: tongue normal. Absent: drooling, trismus, muffled voice Teeth exam: Present: dental caries, fractured tooth #, dental tenderness # Throat exam: normal inspection Neck exam: Present: normal inspection, full ROM. Absent: tenderness Respiratory exam: Present: normal lung sounds bilaterally. Absent: respiratory distress, wheezes, rales, rhonchi, stridor Cardiovascular Exam: Present: regular rate, normal rhythm, normal heart sounds. Absent: systolic murmur, diastolic murmur, rubs, gallop, clicks GI/Abdominal exam: Present: soft, normal bowel sounds. Absent: distended, tenderness, guarding, rebound, rigid Neurological exam: Present: alert, oriented X3, CN II-XII intact Psychiatric exam: Present: normal affect, normal mood Skin exam: Present: warm, dry, intact, normal color. Absent: rash Course Vital Signs 08/13/22 08/13/22 14:28 17:36 Temperature 98 F Pulse Rate 87 87 Respiratory 16 18 Rate Blood Pressure 117/61 114/71 O2 Sat by Pulse 98 95 Oximetry Medical Decision Making - Medical Decision Making Patient is a 72-year-old female presenting for evaluation of dental pain nausea and vomiting. Dental pain ongoing for 2 weeks, vomiting started yesterday. On examination there are several dental caries noted on the affected side, there is no brawny induration or trismus. Normal posterior pharynx. Abdominal examination is unremarkable. CBC shows WBC 11.1, likely reactive. Chloride 95, likely due to vomiting. BUN and creatinine are elevated, however this patient's baseline. KUB x-ray shows nonacute abdomen. Patient reports improvement in symptoms after Zofran and pain medication. If her abscess with penicillin VK, also provided with pain medication and Zofran. Instructed to follow-up with dentist. Follow-up with PCP. Report back to ER with any new or worsening symptoms. Discussed return parameters and answered all questions. Patient conveyed verbal understanding and agreed to the plan. I discussed this case in detail with my attending Dr. Rose - Lab Data Result diagrams: 08/13/22 15:45 08/13/22 15:45 Lab Results 08/13/22 08/13/22 08/13/22 Range/Units 15:45 15:45 15:57 WBC 11.1 H (3.8-10.6) k/uL RBC 4.39 (3.80-5.40) m/uL Hgb 13.3 (11.4-16.0) gm/dL Hct 40.2 (34.0-46.0) % MCV 91.6 (80.0-100.0) fL MCH 30.3 (25.0-35.0) pg MCHC 33.0 (31.0-37.0) g/dL RDW 16.5 H (11.5-15.5) % Plt Count 204 (150-450) k/uL MPV 9.3 Neutrophils % 67 % Lymphocytes % 23 % Monocytes % 6 % Eosinophils % 1 % Basophils % 1 % Neutrophils # 7.4 (1.3-7.7) k/uL Lymphocytes # 2.5 (1.0-4.8) k/uL Monocytes # 0.7 (0-1.0) k/uL Eosinophils # 0.1 (0-0.7) k/uL Basophils # 0.1 (0-0.2) k/uL Hypochromasia Slight Anisocytosis Slight Sodium 138 (137-145) mmol/L Potassium 4.7 (3.5-5.1) mmol/L Chloride 95 L (98-107) mmol/L Carbon Dioxide 30 (22-30) mmol/L Anion Gap 13 mmol/L BUN 37 H (7-17) mg/dL Creatinine 1.39 H (0.52-1.04) mg/dL Est GFR (CKD-EPI)AfAm 44 (>60 ml/min/1.73 sqM) Est GFR (CKD-EPI)NonAf 38 (>60 ml/min/1.73 sqM) Glucose 186 H (74-99) mg/dL Calcium 9.9 (8.4-10.2) mg/dL Total Bilirubin 1.2 (0.2-1.3) mg/dL AST 79 H (14-36) U/L ALT 48 H (4-34) U/L Alkaline Phosphatase 97 (38-126) U/L Total Protein 8.3 H (6.3-8.2) g/dL Albumin 5.1 H (3.5-5.0) g/dL Amylase 43 (30-110) U/L Lipase 83 (23-300) U/L Urine Color Light Yellow Urine Appearance Clear (Clear) Urine pH 5.0 (5.0-8.0) Ur Specific [place] 1.009 (1.001-1.035) Urine Protein Negative (Negative) Urine Glucose (UA) 4+ H (Negative) Urine Ketones Negative (Negative) Urine Blood Negative (Negative) Urine Nitrite Negative (Negative) Urine Bilirubin Negative (Negative) Urine Urobilinogen <2.0 (<2.0) mg/dL Ur Leukocyte Esterase Negative (Negative) Disposition Clinical Impression: Dental abscess, Dental caries Disposition: HOME SELF-CARE Condition: Good Instructions (If sedation given, give patient instructions): Dental Abscess (ED), Acute Nausea and Vomiting (ED), Toothache (ED) Additional Instructions: Follow up with PCP and dentist. Report back to ER with any new or worsening symptoms. Take medication as prescribed. Apply heat to the area for pain control. Prescriptions: Penicillin V Potassium [Pen Vee K] 500 mg PO QID 7 Days #28 tablet Is patient prescribed a controlled substance at d/c from ED?: No Referrals: Tamika Arechiga MD [Primary Care Provider] - 1-2 days Time of Disposition: 17:20
[2022-08-13 17:37] VITALS: BP 114/71; RESP 18
== END 2022-08-13 17:50 | disposition home or self-care (01) ==
LOC: EC 13:56
DX: K02.9 Dental caries, unspecified (principal); J45.909 Unspecified asthma, uncomplicated; I25.10 Atherosclerotic heart disease of native coronary artery without angina pectoris; E11.9 Type 2 diabetes mellitus without complications; K21.9 Gastro-esophageal reflux disease without esophagitis; I25.2 Old myocardial infarction; E03.9 Hypothyroidism, unspecified; Z79.899 Other long term (current) drug therapy; Z79.84 Long term (current) use of oral hypoglycemic drugs; Z88.0 Allergy status to penicillin; Z88.5 Allergy status to narcotic agent; Z88.6 Allergy status to analgesic agent
CPT/HCPCS: 36415; 80053; 82150; 83690; 85025; 81003; 74018; 99283; 96374; 96361; J2405; S0119

== ENCOUNTER 2022-08-15 18:03 | Emergency (ER) | payer MEDICARE, BC ==
[2022-08-15 18:10] VITALS: TEMP 98.7
[2022-08-15] MEDS ORDERED: SODIUM CHLORIDE 0.9% 1,000 ML IV STA (19:01)
[2022-08-15] MEDS ORDERED: ONDANSETRON 4 MG/2 ML VIAL IVP STA (19:01)
[2022-08-15] MEDS ORDERED: KETOROLAC 15 MG/ML 1 ML VIAL IVP STA (19:01)
[2022-08-15] MEDS ORDERED: PANTOPRAZOLE 40 MG/10 ML VIAL IVP STA (19:01)
[2022-08-15 19:58] LABS: Anisocytosis Slight; Basophils # (A) 0.1 k/uL (0-0.2); Basophils % (A) 1 %; Eosinophils # (A) 0.1 k/uL (0-0.7); Eosinophils % (A) 1 %; HCT 40.2 % (34.0-46.0); HGB 13.3 gm/dL (11.4-16.0); Hypochromasia Slight; Lymphocytes # (A) 2.8 k/uL (1.0-4.8); Lymphocytes % (A) 30 %; MCH 30.5 pg (25.0-35.0); MCHC 33.1 g/dL (31.0-37.0); MCV 92.3 fL (80.0-100.0); Mean Platelet Volume 9.2; Monocytes # (A) 0.7 k/uL (0-1.0); Monocytes % (A) 8 %; Neutrophils # (A) 5.5 k/uL (1.3-7.7); Neutrophils % (A) 58 %; Platelet Count 213 k/uL (150-450); RBC 4.35 m/uL (3.80-5.40); RDW 16.7 % (11.5-15.5); WBC 9.4 k/uL (3.8-10.6)
[2022-08-15 20:10] LABS: Partial Thromboplastin Time 22.4 sec (22.0-30.0); Prothrombin Time 11.2 sec (9.0-12.0)
[2022-08-15 20:21] LABS: Albumin 4.9 g/dL (3.5-5.0); Calcium 9.6 mg/dL (8.4-10.2); Total Bilirubin 1.1 mg/dL (0.2-1.3); Total Protein 7.8 g/dL (6.3-8.2)
[2022-08-15 20:25] LABS: Appearance,Urine Clear (Clear); Bacteria,Urine Few /hpf; Bilirubin,Urine Negative (Negative); Blood,Urine Negative (Negative); Color,Urine Yellow; Glucose,Urine (UA) 1+ (Negative); Hyaline Casts,Urine 10 /lpf (0-2); Ketones,Urine Negative (Negative); Leukocyte Esterase,Urine Small (Negative); Mucus,Urine Rare /hpf; Nitrite,Urine Negative (Negative); Protein,Urine Negative (Negative); RBC,Urine 2 /hpf (0-5); Specific Gravity,Urine 1.012 (1.001-1.035); Squamous Epithelial Cell,Urine 5 /hpf (0-4); Urobilinogen,Urine <2.0 mg/dL (<2.0); WBC,Urine 2 /hpf (0-5)
[2022-08-15 20:31] LABS: Potassium 4.5 mmol/L (3.5-5.1)
--- NOTE | 2022-08-15 20:45 | ED ---
General Adult HPI - General Chief complaint: Nausea/Vomiting/Diarrhea Stated complaint: vomiting-revisit Time Seen by Provider: 08/15/22 18:50 Source: patient, RN notes reviewed, old records reviewed Mode of arrival: ambulatory Limitations: no limitations - History of Present Illness Initial comments: Patient is a 72-year-old female with past medical history remarkable for recent tooth infection, as well as nausea and vomiting since the tooth infection started who presents for second time after being diagnosed with a tooth infection 2 days ago and started on antibiotics. States she is still having nausea and vomiting. He is due to see the dentist tomorrow. Percents over concern for dehydration. Denies any chest pain, shortness of breath. Denies any abdominal pain, nausea, vomiting. Denies any diarrhea. Denies any fevers or chills. Is endorsing intermittent left-sided lower tooth pain. Denies any difficulty swallowing or breathing. Has no other acute complaints at this time. Patient does have a cardiac history, cancer history. Presents for further evaluation at this time. She is not on blood thinners. - Related Data Home Medications Medication Instructions Recorded Confirmed Furosemide [Lasix] 40 mg PO DAILY 08/04/17 05/09/19 Spironolactone [Aldactone] 25 mg PO DAILY 08/04/17 05/09/19 Atorvastatin [Lipitor] 40 mg PO DAILY 01/01/18 05/09/19 Levothyroxine Sodium [Synthroid] 50 mcg PO DAILY 01/01/18 05/09/19 metFORMIN HCL [Glucophage] 500 mg PO BID 05/09/19 05/09/19 lisinopriL [Zestril] 2.5 mg PO DAILY 05/10/19 05/10/19 Previous Rx's Medication Instructions Recorded Clopidogrel [Plavix] 75 mg PO DAILY tab 01/01/17 Digoxin [Lanoxin] 125 mcg PO DAILY tab 01/01/17 cefTRIAXone [Rocephin] 2 gm IVPB Q24HR vial 05/18/19 traMADol HCl [Ultram] 50 mg PO Q12HR PRN #6 tab 05/18/19 Penicillin V Potassium [Pen Vee K] 500 mg PO QID 7 Days #28 tablet 08/13/22 HYDROcodone/APAP 5-325MG [[place] 1 tab PO Q6HR PRN 3 Days #12 tab 11/09/22 5-325] Ondansetron Odt [Zofran Odt] 4 mg PO Q8HR PRN 2 Days #6 tab 08/15/22 Allergies Allergy/AdvReac Type Severity Reaction Status Date / Time ampicillin [From Unasyn] AdvReac Severe Nausea & Verified 08/15/22 18:10 Vomiting sulbactam [From Unasyn] AdvReac Severe Nausea & Verified 08/15/22 18:10 Vomiting acetaminophen [From [place]] AdvReac Intermediate Nausea & Verified 08/15/22 18:10 Vomiting hydrocodone [From [place]] AdvReac Intermediate Nausea & Verified 08/15/22 18:10 Vomiting codeine AdvReac Nausea & Verified 08/15/22 18:10 [From Tylenol-Codeine #3] Vomiting Review of Systems ROS Statement: Those systems with pertinent positive or pertinent negative responses have been documented in the HPI. Review of Systems: CONST: Denies fever EYES: Denies blurry vision ENT: Endorses tooth infection C/V: Denies Chest pain RESP: Denies shortness of breath GI: endorses nausea and vomiting : Denies dysuria SKIN: Denies rash. MSK: Denies joint pain. NEURO: Denies headache ROS Other: All systems not noted in ROS Statement are negative. Past Medical History Past Medical History: Asthma, Coronary Artery Disease (CAD), Cancer, Diabetes Mellitus, GERD/Reflux, Hypertension, Myocardial Infarction ([place]), Pneumonia, Thyroid Disorder Additional Past Medical History / Comment(s): NSTEMI in September 2016 with subsequent coronary artery bypass grafting x 1, BRAR to the LAD, in October 2016. Severe ischemic cardiomyopathy with estimated ejection fraction 25-30%. Pending AICD placement. Admitted for hypotension in 11-13-16. Remote history of left Breast cancer stage 4(1994) had mastectomy and radiation/chemo,had genetic testing done,was poisitve for BRCA 2 gene mutation, so had elective right mastectomy done. 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 Salgado. She received 4 chemo tx, pne/sepsis Last Myocardial Infarction Date:: History of Any Multi-Drug Resistant Organisms: C-DIFF Date of last positivie culture/infection: 10/2016 MDRO Source:: stool Past Surgical History: Appendectomy, Breast Surgery, Cholecystectomy, Coronary Bypass/CABG, Heart Catheterization, Hysterectomy, Tubal Ligation Additional Past Surgical History / Comment(s): LT BREAST WAS POSTIVE FOR CANCER STAGE 4 cancer-had masectomy. 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 PT TESTED POSITIVE FOR BRCA 2 GENE.then 8 YEARS AGO HAD RT BREAST REMOVED (prophylactically). lt cataract removed, 10-07-16 CABG( 1 VESSEL), LT INTERNAL MAMMARY ARTERY TO LEFT ANT DESCENDING ARTERY. EVAN OOPHERECTOMY(PROPHYLATIC), LUNG NODULE REMOVED(CANCEROUS-lymhoma- AND RECEIVED SEVERAL CHEMO tx, several venous access devices since removed. Past Anesthesia/Blood Transfusion Reactions: No Reported Reaction Additional Past Anesthesia/Blood Transfusion Reaction / Comment(s): takes a bit to wake up after aa Past Psychological History: No Psychological Hx Reported Smoking Status: Never smoker Past Alcohol Use History: None Reported Past Drug Use History: None Reported - Past Family History Mother Family Medical History: Diabetes Mellitus Additional Family Medical History / Comment(s): heart valve replacment Father Family Medical History: Cancer Additional Family Medical History / Comment(s): lung cancer Sister(s) Family Medical History: Cancer Additional Family Medical History / Comment(s): breast cancer General Exam - General Exam Comments Initial Comments: General: Appears in no acute distress. HEAD: Normal with no signs of head trauma. EYES: PERRLA, EOMI, conjunctiva normal, no discharge. ENT: Hearing grossly intact, normal oropharynx. Left inferior tooth infection with what appears to be draining periapical abscess. No swelling on the floor the mouth, cheek, tongue. Uvula is midline. Normal posterior oropharynx. No stridor auscultated. RESPIRATORY: Clear breath sounds bilaterally. No wheezes, rales, or rhonchi. C/V: Regular rate and rhythm. S1 and S2 auscultated, no edema, peripheral pulses 2+ and intact throughout ABD: Abd is soft, nontender, nondistended EXT: Normal range of motion, no obvious deformity SKIN: No rashes or lesions observed on exposed skin. NEURO: Alert and oriented 4. No focal sensory strength deficits. Limitations: no limitations Course Vital Signs 08/15/22 18:07 Temperature 98.7 F Pulse Rate 86 Respiratory 20 Rate Blood Pressure 103/61 O2 Sat by Pulse 95 Oximetry Medical Decision Making - Medical Decision Making Based on the patient's presentation and physical exam, I did discuss with her that I believe that her nausea and vomiting may be secondary to her tooth infection. She states it is draining abdomen it is possible that the pus and drainage is upsetting her stomach. However I cannot elicit that she has had persistent nausea and vomiting. Would like to obtain cardiopulmonary labs in addition to abdominal laboratory studies to an atypical ACS. She was in agreement this plan. EKG as well as CT abdomen and pelvis will be obtained. Patient was in agreement this plan. She'll be given IV hydration, as well as antibiotics, IV Protonix and Toradol. Vital signs within acceptable limits. Patient was in agreement with this plan. EKG shows no acute signs of ischemia.Patient's CT is interpreted by myself revealed no acute findings. Mild gastritis present. No other acute intra- abdominal process. Laboratory studies were remarkable for an elevated BUN/creatinine and what appears to be the setting of CK D. Lactic acid is within normal limits. LFTs are mildly elevated. Troponin is indeterminate with multiple days his symptoms. Urinalysis is a contaminated catch. There is no leukocytosis. Remainder the labs are within normal limits. Reevaluation come patient's symptoms have resolved. She is tolerating oral intake. She would like to go home. I believe this is reasonable. She has follow-up with dentistry tomorrow. We did review her workup and I informed her of her CT scan results of gastritis. She is already on omeprazole at home. She'll be given ODT Zofran prescription as well as a [place] prescription for 3 days. She was in agreement this plan. Recommended she follow up with her dentist tomorrow. I will provide the patient with a prescription for [place], Zofran ODT. I instr ucted the patient to follow up with their PCP in the next 1-3 days. I explained that the patient should return to the emergency department if they experience any worsening symptoms. Strict return precautions were discussed with the patient. The patient expressed understanding of these instructions. I answered all questions that the patient had. The patient was discharged home in good condition with their prescriptions and follow up information. - Lab Data Result diagrams: 08/15/22 19:27 08/15/22 19:27 Lab Results 08/15/22 08/15/22 08/15/22 Range/Units 19:27 19: 19:27 WBC 9.4 (3.8-10.6) k/uL RBC 4.35 (3.80-5.40) m/uL Hgb 13.3 (11.4-16.0) gm/dL Hct 40.2 (34.0-46.0) % MCV 92.3 (80.0-100.0) fL MCH 30.5 (25.0-35.0) pg MCHC 33.1 (31.0-37.0) g/dL RDW 16.7 H (11.5-15.5) % Plt Count 213 (150-450) k/uL MPV 9.2 Neutrophils % 58 % Lymphocytes % 30 % Monocytes % 8 % Eosinophils % 1 % Basophils % 1 % Neutrophils # 5.5 (1.3-7.7) k/uL Lymphocytes # 2.8 (1.0-4.8) k/uL Monocytes # 0.7 (0-1.0) k/uL Eosinophils # 0.1 (0-0.7) k/uL Basophils # 0.1 (0-0.2) k/uL Hypochromasia Slight Anisocytosis Slight PT 11.2 (9.0-12.0) sec INR 1.0 (<1.2) APTT 22.4 (22.0-30.0) sec Sodium 136 L (137-145) mmol/L Potassium 4.5 (3.5-5.1) mmol/L Chloride 94 L (98-107) mmol/L Carbon Dioxide 29 (22-30) mmol/L Anion Gap 13 mmol/L BUN 32 H (7-17) mg/dL Creatinine 1.31 H (0.52-1.04) mg/dL Est GFR (CKD-EPI)AfAm 47 (>60 ml/min/1.73 sqM) Est GFR (CKD-EPI)NonAf 40 (>60 ml/min/1.73 sqM) Glucose 159 H (74-99) mg/dL Plasma Lactic Acid [place] (0.7-2.0) mmol/L Calcium 9.6 (8.4-10.2) mg/dL Total Bilirubin 1.1 (0.2-1.3) mg/dL AST 107 H (14-36) U/L ALT 63 H (4-34) U/L Alkaline Phosphatase 80 (38-126) U/L Troponin I (0.000-0.034) ng/mL Total Protein 7.8 (6.3-8.2) g/dL Albumin 4.9 (3.5-5.0) g/dL Amylase 51 (30-110) U/L Lipase 80 (23-300) U/L Urine Color Urine Appearance (Clear) Urine pH (5.0-8.0) Ur Specific [place] (1.001-1.035) Urine Protein (Negative) Urine Glucose (UA) (Negative) Urine Ketones (Negative) Urine Blood (Negative) Urine Nitrite (Negative) Urine Bilirubin (Negative) Urine Urobilinogen (<2.0) mg/dL Ur Leukocyte Esterase (Negative) Urine RBC (0-5) /hpf Urine WBC (0-5) /hpf Ur Squamous Epith Cells (0-4) /hpf Urine Bacteria (None) /hpf Hyaline Casts (0-2) /lpf Urine Mucus (None) /hpf 08/15/22 08/15/22 08/15/22 Range/Units 19:27 19:27 19:42 WBC (3.8-10.6) k/uL RBC (3.80-5.40) m/uL Hgb (11.4-16.0) gm/dL Hct (34.0-46.0) % MCV (80.0-100.0) fL MCH (25.0-35.0) pg MCHC (31.0-37.0) g/dL RDW (11.5-15.5) % Plt Count (150-450) k/uL MPV Neutrophils % % Lymphocytes % % Monocytes % % Eosinophils % % Basophils % % Neutrophils # (1.3-7.7) k/uL Lymphocytes # (1.0-4.8) k/uL Monocytes # (0-1.0) k/uL Eosinophils # (0-0.7) k/uL Basophils # (0-0.2) k/uL Hypochromasia Anisocytosis PT (9.0-12.0) sec INR (<1.2) APTT (22.0-30.0) sec Sodium (137-145) mmol/L Potassium (3.5-5.1) mmol/L Chloride (98-107) mmol/L Carbon Dioxide (22-30) mmol/L Anion Gap mmol/L BUN (7-17) mg/dL Creatinine (0.52-1.04) mg/dL Est GFR (CKD-EPI)AfAm (>60 ml/min/1.73 sqM) Est GFR (CKD-EPI)NonAf (>60 ml/min/1.73 sqM) Glucose (74-99) mg/dL Plasma Lactic Acid [place] 1.8 (0.7-2.0) mmol/L Calcium (8.4-10.2) mg/dL Total Bilirubin (0.2-1.3) mg/dL AST (14-36) U/L ALT (4-34) U/L Alkaline Phosphatase (38-126) U/L Troponin I 0.012 (0.000-0.034) ng/mL Total Protein (6.3-8.2) g/dL Albumin (3.5-5.0) g/dL Amylase (30-110) U/L Lipase (23-300) U/L Urine Color Yellow Urine Appearance Clear (Clear) Urine pH 5.0 (5.0-8.0) Ur Specific [place] 1.012 (1.001-1.035) Urine Protein Negative (Negative) Urine Glucose (UA) 1+ H (Negative) Urine Ketones Negative (Negative) Urine Blood Negative (Negative) Urine Nitrite Negative (Negative) Urine Bilirubin Negative (Negative) Urine Urobilinogen <2.0 (<2.0) mg/dL Ur Leukocyte Esterase Small H (Negative) Urine RBC 2 (0-5) /hpf Urine WBC 2 (0-5) /hpf Ur Squamous Epith Cells 5 H (0-4) /hpf Urine Bacteria Few H (None) /hpf Hyaline Casts 10 H (0-2) /lpf Urine Mucus Rare H (None) /hpf - EKG Data -: EKG Interpreted by Me EKG Comments: 12-lead Electrocardiogram Interpretation Note EKG was reviewed and interpreted by myself. 12-lead ECG performed at 2041 is interpreted by me as revealing ventricular paced rhythm at a rate of at 84 beats per minute. [place] is normal. MT interval is 116 ms, QRS durations 157 ms, QTc is 445 ms.. There were no acute ST or T wave abnormalities to suggest myocardial ischemia or injury. R wave progression across the precordium was satisfactory. By my interpretation this EKG is non-diagnostic for acute ischemia. There are chronic T wave inversions in findings secondary to a ventricularly paced rhythm there is seen on prior EKGs including May 2019. Disposition Clinical Impression: Dental infection, Nausea and vomiting, Gastritis Disposition: HOME SELF-CARE Condition: Good Instructions (If sedation given, give patient instructions): Acute Nausea and Vomiting (ED), Toothache (ED) Prescriptions: HYDROcodone/APAP 5-325MG [[place] 5-325] 1 tab PO Q6HR PRN 3 Days #12 tab PRN Reason: Pain Ondansetron Odt [Zofran Odt] 4 mg PO Q8HR PRN 2 Days #6 tab PRN Reason: Nausea Is patient prescribed a controlled substance at d/c from ED?: Yes When asked, does pt state using other controlled substances?: No If prescribed controlled substance>3 days was MAPS reviewed?: Prescribed <3 Days If opioid is for acute pain is fill amount 7 days or less?: Yes If Rx opioid, was Start Talking consent form obtained?: Yes Referrals: Tamika Arechiga MD [Primary Care Provider] - 1-2 days Time of Disposition: 21:45
--- NOTE | 2022-08-15 21:34 | CT ---
EXAMINATION TYPE: CT abdomen pelvis w con DATE OF EXAM: 08/15/2022 COMPARISON: 02/14/2016 HISTORY: vomiting x4 days, pt states she has a tooth abscess. CT DLP: 753 mGycm Automated exposure control for dose reduction was used. CONTRAST: Performed with IV Contrast, patient injected with 80 mL of Isovue 300. Images obtained from the diaphragm to the floor the pelvis with the IV contrast. There is some infiltrate at the inferior right pulmonary hilum. Heart size is top normal. No pericard ial effusion. No pleural effusion. There are clips from cholecystectomy. Liver spleen and stomach pancreas appear intact. The bile ducts are not dilated. There is mild gastric wall thickening involving the fundus and body of the stomach. There is no adrenal mass. Kidneys show satisfactory contrast opacification. No hydronephrosis. Ureter s are not dilated. No retroperitoneal adenopathy. The bladder distends smoothly. No inguinal hernia. No free fluid in the pelvis. No pelvic mass. Uterus is anteverted. The lumbar vertebrae have normal alignment. No compression fracture. Posterior elements are intact. T he bony pelvis is intact. The hip joints are intact. Appendix not seen. There is apparent clips from appendectomy. There is no mesenteric edema. No ascites or free air. No sign of a bowel obstruction. IMPRESSION: Infiltrate at the inferior right pulmonary hilum also present on the old exam and not significantly d ifferent. Mild gastric wall thickening could be some hypertrophic gastritis and is a change compared to the old exam.
[2022-08-15] MEDS ORDERED: ONDANSETRON 4 MG ODT STARTER PACK 2 TAB BTL PO STA (21:46)
[2022-08-15 22:08] VITALS: BP 125/65; PULSE 84; RESP 18
== END 2022-08-15 22:07 | disposition home or self-care (01) ==
LOC: EC 18:03
DX: K04.7 Periapical abscess without sinus (principal); R11.2 Nausea with vomiting, unspecified; K29.70 Gastritis, unspecified, without bleeding; J45.909 Unspecified asthma, uncomplicated; K21.9 Gastro-esophageal reflux disease without esophagitis; I11.9 Hypertensive heart disease without heart failure; I25.10 Atherosclerotic heart disease of native coronary artery without angina pectoris; E11.9 Type 2 diabetes mellitus without complications; I25.2 Old myocardial infarction; E07.9 Disorder of thyroid, unspecified; Z79.84 Long term (current) use of oral hypoglycemic drugs; Z79.890 Hormone replacement therapy; Z79.01 Long term (current) use of anticoagulants; Z88.0 Allergy status to penicillin; Z88.6 Allergy status to analgesic agent; Z88.5 Allergy status to narcotic agent
CPT/HCPCS: 36415; 93005; 80053; 82150; 83605; 83690; 84484; 85025; 85610; 85730; 81001; 74177; 99284; 96374; 96375 ×2; 96361; J2405; J1885; S0119; C9113; Q9967

== ENCOUNTER → 2022-08-23 | Outpatient (CLI) | payer MEDICARE, BC ==
[2022-08-23 18:42] LABS: ALT 35 U/L (8-44); AST 30 U/L (13-35); African American GFR (CKD) 43.1 (60.0-200.0); Albumin 4.6 g/dL (3.8-4.9); Alkaline Phosphatase 94 U/L (41-126); BUN/Creat Ratio 17.57 Ratio (12.00-20.00); Blood Urea Nitrogen 24.6 mg/dL (9.0-27.0); Calcium 9.2 mg/dL (8.7-10.3); Carbon Dioxide 26.1 mmol/L (20.0-27.5); Chloride 100 mmol/L (96-109); Chol/HDL Ratio 4.56 Ratio; Globulin 2.7 g/dL (1.6-3.3); Glucose 149 mg/dL (70-110); LDL Cholesterol,Calculated 58.6 mg/dL (0.0-131.0); Non-African American GFR(CKD) 37.2 (60.0-200.0); Potassium 4.1 mmol/L (3.5-5.5); Sodium 141 mmol/L (135-145); Total Protein 7.3 g/dL (6.2-8.2)
[2022-08-23 22:41] LABS: Urine Creatinine 25.8 mg/dL (28.0-217.0)
== END | disposition home or self-care (01) ==
LOC: LABWHC1 11:19
PROVIDERS: ATTEND Internal Medicine Interventional Cardiology
DX: E78.2 Mixed hyperlipidemia (principal); E11.65 Type 2 diabetes mellitus with hyperglycemia
CPT/HCPCS: 36415; 80053; 80061; 82043; 82570; 83036; 84443

== ENCOUNTER → 2023-08-22 | Outpatient (CLI) | payer MEDICARE, BC ==
--- NOTE | 2023-08-24 19:55 | PE ---
EXAMINATION TYPE: PET CT fusion skull to thigh DATE OF EXAM: 08/22/2023 CLINICAL INDICATION:Female, 73 years old with history of C50.112 BREAST CANCER; TECHNIQUE: Following the intravenous administration of 10.4 mCi of F-18 FDG, whole body images are performed from the skull base to the midthigh. Images are reviewed on the computer in the coronal, a xial, and sagittal planes. Reconstructed rotating images are created on independent workstation and reviewed on the computer. A non-contrast CT is performed in conjunction with the PET scan. Glucose level 99.0 mg/dL CT DLP: 358.18 mGycm, Automated exposure control for dose reduction was used. COMPARISON: CT 08/15/2022, 07/19/2023, PET/CT None, FINDINGS: Mediastinal SUV mean is 1.73. Hepatic parenchyma SUV mean is 2.4. SKULL BASE AND NECK: * Right parotid gland lesion with increased metabolic activity max SUV 13.6, previously not visualiz ed. CHEST, MEDIASTINUM, AND HILAR REGION: * Right medial lung lymphadenopathy max SUV 15.8. Measuring 3.5 x 1.7 cm. * Right lobe pulmonary hilum max SUV 3.7 measurements are difficult given lack of IV contrast. ABDOMEN AND PELVIS: No suspicious radiotracer activity. MUSCULOSKELETAL STRUCTURES: Abnormal FDG activity scattered throughout the osseous structures. Examples include: * Right rib #3 medial FDG activity max SUV 3.7. * L1 vertebral body max SUV 5.2 with compression. * Right rib #5 Max SUV 3.9. * Right rib #7 Max SUV 4.1. OTHER CT: Bilaterally aphakia. Atherosclerosis of the arterial vasculature. There is cardiac conducti on device with leads remain in the right ventricle and atrium. Heart is moderately enlarged for size. The breasts appear surgically absent. Atherosclerosis of the coronary arteries. Aortic valve calcifi cations are present. Bilateral facet inguinal hernias. Fat-containing umbilical hernia. The gallbladd er surgically absent. Consolidation changes around right pulmonary hilum. IMPRESSION: 1. Findings compatible with neoplastic process involving the right upper medial lung and suspicious lymph node in the the right inferior aspect of the right pulmonary hilum mild FDG activity.. 2. Scattered osseous FDG activity including medial aspects of right rib 3, 5 and 7 which could repre sent sequela of prior trauma. Additionally there is compression fracture of L1 vertebral body, possib ly pathologic. Correlate with history trauma and pain. 3. Indeterminate right parotid gland lesion. Consider ultrasound imaging. 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
== END | disposition home or self-care (01) ==
LOC: RADPETMAIN 14:14
PROVIDERS: ATTEND Internal Medicine Hematology & Oncology
DX: C50.112 Malignant neoplasm of central portion of left female breast (principal)
CPT/HCPCS: 78815; A9552

== ENCOUNTER 2023-09-19 12:43 | Day surgery (SDC) | payer MEDICARE, BC ==
[2023-09-17 13:11] VITALS: BMI 23.0
[~2023-09-19 12:43] MED LIST changes: +DEXAMETHASONE SOD PHOSPHATE 4 MG/ML 1 ML VIAL IV ONE; -HYDROmorphone 1 MG/ML 1 ML SYRINGE IVP PRN; +LACTATED RINGERS 1,000 ML IV SCH; +LIDOCAINE 1% (10MG/ML) FOR IV START INTRADERMA PRN; -MIDAZOLAM 2 MG/2 ML VIAL IV PRN; +ONDANSETRON 4 MG/2 ML VIAL IVP ONE; -ceFAZolin 1,000 MG in SODIUM CHLORIDE 0.9% IRRIGATIO 250 ML IRRIGATION ONE; -ceFAZolin 2 GM in SODIUM CHLORIDE 0.9% 100 ML IVPB ONE; +droPERidol 5 MG/2 ML VIAL IVP ONE; +fentaNYL (PF) 50 MCG/ML 2 ML AMP IV PRN
[2023-09-19 13:38] LABS: Glucose,Whole Blood 116 mg/dL (70-110)
[2023-09-19] MEDS ORDERED: ROCURONIUM 10 MG/ML (5 ML VIAL) IV ONE (14:35)
[2023-09-19] MEDS ORDERED: ETOMIDATE 2 MG/ML 10 ML VIAL ONE (14:35)
[2023-09-19] MEDS ORDERED: NEOSTIGMINE 1 MG/ML 10 ML VIAL ONE (14:35)
[2023-09-19] MEDS ORDERED: fentaNYL (PF) 50 MCG/ML 2 ML AMP ONE (14:35)
[2023-09-19] MEDS ORDERED: MIDAZOLAM 2 MG/2 ML VIAL ONE (14:35)
[2023-09-19] MEDS ORDERED: ePHEDrine 50 MG/ML 1 ML VIAL ONE (14:35)
[2023-09-19] MEDS ORDERED: GLYCOPYRROLATE 0.2 MG/ML 2 ML VIAL ONE (14:35)
[2023-09-19] MEDS ORDERED: WATER FOR INJECTION, STERILE 10 ML VIAL IV ONE (14:35)
[2023-09-19] MEDS ORDERED: PHENYLEPHRINE-0.9% NACL SYG 1,000 MCG/10 ML SYRINGE ONE (14:35)
[2023-09-19] MEDS ORDERED: SUCCINYLCHOLINE CHLORIDE 200 MG/10 ML VIAL IV ONE (14:35)
--- NOTE | 2023-09-19 14:58 | CT ---
EXAMINATION TYPE: CT chest wo con CT DLP: 192.0 mGycm, Automated exposure control for dose reduction was used. DATE OF EXAM: 09/19/2023 1:04 PM COMPARISON: 08/22/2023 CT. CLINICAL INDICATION:Female, 73 years old with history of ION ROBOT BRONCH, TECHNIQUE: Multiple axial images were obtained through the chest. Sagittal and coronal reformats were created for review. Contrast used: mL of (None if empty) Oral contrast used: (None if empty) FINDINGS: LUNGS/ PLEURA: There is a right perihilar mass with consolidation changes extend up superiorly along the mediastinum. This correlates with pet/CT FDG avid mass on 08/22/2023. No other pleural effusion o r pneumothorax identified. The region from prior PET/CT measures roughly 3.5 x 2.5 cm. AIRWAY: Patent and unremarkable. HEART: Postsurgical changes of the heart. The heart is moderately enlarged with conduction leads and consultations of the vasculature. MEDIASTINUM: No gross evidence of adenopathy. VASCULATURE: No aortic aneurysm. MUSCULOSKELETAL: No acute osseous abnormalities, diffuse osseous demineralization. With multilevel de generation changes throughout the spine.1 SOFT TISSUES/LYMPH NODES: Unremarkable. LOWER NECK: No significant findings. UPPER ABDOMEN: The gallbladder surgically absent. IMPRESSION: Right perihilar mass which extends superiorly with increased metabolic activity along the medial superior portion compatible with malignancy.
--- NOTE | 2023-09-19 16:06 | P.PCN ---
Date of Procedure: 09/19/23 Operative Findings: Date of Procedure: 09/05/23 Operative Findings: Preoperative Diagnosis: Right upper lobe mass Postoperative Diagnosis: Right upper lobe mass Radiation induced narrowing of the BI and the RLL bronchus Procedure(s) Performed: Flexible bronchoscopy Robotic-assisted bronchoscopy and addition to radial ultrasound evaluation of the lung mass Robotic-assisted test monitor needle aspirate, transbronchial biopsies, transbronchial brushing of the Right upper lobe mass in addition to a bronchioloalveolar lavage Endobronchial ultrasound Endobronchial ultrasound-guided transbronchial needle aspirate of RUL mass Anesthesia: RALPHA Surgeon: Steven Santa Estimated Blood Loss (ml): 0 Pathology: other Condition: stable Disposition: same day Operative Findings: A physical exam was performed. Informed consent was obtained from the patient after explaining all the risks (pneumothorax, life threatening bleeding, infection and adverse effects due to medications), benefits and alternatives to the procedure which the patient appeared to understand and so stated. The patient was connected to the monitoring devices. General anesthesia was induced and the patient was intubated by anesthesia. A final timeout was performed and the procedure confirmed by the attending staff bronchoscopist. The bronchoscope was inserted and the airway examined. The distal trachea was within normal limits. Bilateral mainstem bronchi were patent and within normal limits. The bronchus intermedius was irregular and narrowed and so was the right lower lobe bronchus. Note that the bronchus intermedius and the middle and the right lower lobe airways were all patent. Narrowed probably related to previous radiation exposure as the patient has had history of breast cancer and she is receiving radiation therapy to her chest. Examination of the left side was within normal limits. The flexible bronchoscope was removed and the robotic bronchoscope was inserted. Registration was completed. I next guided the robotic bronchoscope using the navigation system into the Right upper lobe apical segment segment. Once in proper position, the bronchoscope was frozen. The radial EBUS probe was placed through the bronchoscope and confirmed abnormal u/s images vs normal lung. A needle was placed through the working channel and under fluoroscopic guidance, we sampled the area thought to have the mass twice. We then used a cloud biopsy pattern with ultrasound confirmation for 2 additional passes with the needle. U/S evaluation was then used to reconfirm location. Forceps were next introduced through working channel and extended the appropriate distance and 3 transbronchial biopsies were performed using fluoroscopic guidance. The u/s probe was then reinserted to confirm location. When confirmed this process was repeated for a total of 6 transbronchial biopsies. After reassessment with EBUS, a brush was placed through the extendable working channel for 1 pass with fluoroscopic guidance. U/S evaluation was then used to confirm location. 40ml of saline was then instilled into the area of the lesion. The robotic bronchoscope was removed and the airway inspected with a flexible bronchoscope and 10 ml of effluent from the BAL was collected. The flexible bronchoscope was removed and the EBUS-TBNA bronchoscope was used to intubate the pateint through the ETT. Following that, endobronchial ultrasound was inserted for mediastinal lymph node evaluation. EBUS was completed and there was a 3 cm mass aling the right paratracheal wall, at the level of the mid-trachea. Under direct visualization, transbronchial needle aspirate of the mass was done using a 22-gauge [employer] aspiration needle. A total of 5 passes were done. No other pathologic lymph nodes were seen in the mediastinum The patient was then extubated with the EBUS-TBNA bronchoscope and intubated with an Olympus IT bronchoscope without difficutly. The airways were inspected and cleared of secretions and blood. Fluoroscopic check for pneumothorax was negative upon completion of the procedure. There was 0 ml blood loss with the procedure. FINDINGS: 1.The airways appeared normal 2 Successful navigation, ultrasonographic identification, and biopsies of Right upper lobe mass 3.The EBUS view was concentric RECOMMENDATIONS: Await pathology and cytology results The referring physician will be alerted to the results when available. The patient was advised to follow up with the referring physician with the biopsy results Patient will be called with results.
[2023-09-19 16:24] VITALS: TEMP 97.4
--- NOTE | 2023-09-19 16:52 | XR ---
EXAMINATION TYPE: XR chest 1V DATE OF EXAM: 09/19/2023 4:38 PM CLINICAL INDICATION:Female, 73 years old with history of post bx; [facility] COMPARISON: Chest x-ray 07/09/2023. CT chest 09/19/2023 12:51 PM TECHNIQUE: XR chest 1V Frontal view of the chest. FINDINGS: Lines/Tubes/Devices: EKG leads overlie the chest. No indwelling lines are seen. Left chest multilead AICD with lead tips in stable position terminating over the RA, RV, coronary sinus. Heart/mediastinum: Cardiac mediastinal silhouette appears stable. Heart is enlarged with sternotomy w ires and mediastinal clips suggesting prior CABG. Again some sternal wires are broken and minimally d isplaced. Pulmonary vascularity: Not increased, Lungs/Pleura: There is no evidence of pleural effusion, focal consolidation, or pneumothorax. Mild c hronic senescent changes. Right hilar opacity and thickened appearance along the right paratracheal stripe, consistent with kno wn malignancy. Musculoskeletal: No acute osseous abnormality demonstrated in the limits of the exam. Similar mild a symmetric elevation of the right hemidiaphragm. Other findings: Clips in the right upper quadrant likely from cholecystectomy. Vertebroplasty cement in a lumbar vertebra. IMPRESSION: No pneumothorax or other acute abnormality. Right hilar opacity and thickened appearance along the right paratracheal stripe, consistent with kno wn malignancy. Mild cardiomegaly and postoperative changes.
[2023-09-19 17:12] VITALS: RESP 18
[2023-09-19 17:36] VITALS: BP 104/60; PULSE 89
--- NOTE | 2023-09-20 07:45 | FL ---
Intraoperative/procedural fluoroscopic services were provided. Total fluoroscopy time is 6.17 minutes with a total of 1 submitted images to PACS. Please see the operative/procedural note for further det ails. DAP: 5.6174 Gycm2
== END 2023-09-19 17:38 | disposition home or self-care (01) ==
LOC: ORWHC2ENDO 12:43
PROVIDERS: ATTEND Internal Medicine Critical Care Medicine
DX: C34.11 Malignant neoplasm of upper lobe, right bronchus or lung (principal); I25.10 Atherosclerotic heart disease of native coronary artery without angina pectoris; I11.0 Hypertensive heart disease with heart failure; E78.5 Hyperlipidemia, unspecified; K21.9 Gastro-esophageal reflux disease without esophagitis; I25.2 Old myocardial infarction; Z79.82 Long term (current) use of aspirin; Z79.02 Long term (current) use of antithrombotics/antiplatelets; Z79.899 Other long term (current) drug therapy; Z98.890 Other specified postprocedural states; Z95.0 Presence of cardiac pacemaker; Y84.2 Radiological procedure and radiotherapy as the cause of abnormal reaction of the patient, or of later complication, without mention of misadventure at the time of the procedure
CPT/HCPCS: 88108; 88305; 88342; 88341; 87070; 87205; 87116; 87102; 87206; 71045; 71250; 31628; 31629; 31623; 31624; 31652; J2250; J0330; J2710; J3010; J2371; S2900

== ENCOUNTER → 2023-10-02 | Outpatient (CLI) | payer MEDICARE, BC | END | disposition home or self-care (01) | LOC: LABWHC1 11:54 | PROVIDERS: ATTEND Internal Medicine Interventional Cardiology | DX: E78.2 Mixed hyperlipidemia (principal) | CPT/HCPCS: 70470; 36415; Q9967 ==

== ENCOUNTER → 2023-10-02 | Outpatient (CLI) | payer MEDICARE, BC ==
[2023-10-02 13:41] LABS: ALT 25 U/L (4-34); African American GFR (CKD) 49 (>60 ml/min/1.73 sqM); Albumin 4.7 g/dL (3.5-5.0); Albumin/Globulin Ratio 1.2; Anion Gap 14 mmol/L; Blood Urea Nitrogen 30 mg/dL (7-17); Calcium 8.5 mg/dL (8.4-10.2); Carbon Dioxide 28 mmol/L (22-30); Chloride 102 mmol/L (98-107); Globulin 3.8 g/dL; Glucose 88 mg/dL (74-99); Non-African American GFR(CKD) 43 (>60 ml/min/1.73 sqM); Sodium 144 mmol/L (137-145); Total Bilirubin 0.9 mg/dL (0.2-1.3); Total Protein 8.5 g/dL (6.3-8.2)
[2023-10-02 13:48] LABS: AST 42 U/L (14-36); Alkaline Phosphatase 101 U/L (38-126); Potassium 4.7 mmol/L (3.5-5.1)
[2023-10-02 19:35] LABS: Chol/HDL Ratio 4.39 Ratio
== END | disposition home or self-care (01) ==
LOC: RADCTMAIN 12:32
PROVIDERS: ATTEND Internal Medicine Hematology & Oncology
DX: C34.11 Malignant neoplasm of upper lobe, right bronchus or lung (principal)
CPT/HCPCS: 80053; 80061

== ENCOUNTER 2023-11-14 19:49 | Observation (INO) | payer MEDICARE, BC ==
[2023-11-14 20:35] LABS: Anisocytosis Slight; Basophils # (A) 0.2 k/uL (0-0.2); Basophils % (A) 2 %; Eosinophils # (A) 0.1 k/uL (0-0.7); Eosinophils % (A) 1 %; HCT 36.3 % (34.0-46.0); HGB 11.7 gm/dL (11.4-16.0); Hypochromasia Slight; Lymphocytes # (A) 2.1 k/uL (1.0-4.8); Lymphocytes % (A) 22 %; MCH 31.9 pg (25.0-35.0); MCHC 32.3 g/dL (31.0-37.0); MCV 98.7 fL (80.0-100.0); Macrocytosis Slight; Mean Platelet Volume 8.2; Monocytes # (A) 0.9 k/uL (0-1.0); Monocytes % (A) 10 %; Neutrophils # (A) 6.1 k/uL (1.3-7.7); Neutrophils % (A) 64 %; Platelet Count 191 k/uL (150-450); RBC 3.67 m/uL (3.80-5.40); RDW 16.7 % (11.5-15.5); WBC 9.6 k/uL (3.8-10.6)
[2023-11-14 20:44] LABS: INR 1.1 (<1.2); Prothrombin Time 11.6 sec (10.0-12.5)
[2023-11-14 20:59] LABS: ALT 31 U/L (4-34); AST 37 U/L (14-36); African American GFR (CKD) 32 (>60 ml/min/1.73 sqM); Albumin 4.6 g/dL (3.5-5.0); Alkaline Phosphatase 94 U/L (38-126); Anion Gap 10 mmol/L; Blood Urea Nitrogen 48 mg/dL (7-17); Calcium 9.1 mg/dL (8.4-10.2); Carbon Dioxide 27 mmol/L (22-30); Chloride 102 mmol/L (98-107); Glucose 122 mg/dL (74-99); Magnesium 1.5 mg/dL (1.6-2.3); Non-African American GFR(CKD) 28 (>60 ml/min/1.73 sqM); Phosphorus 3.9 mg/dL (2.5-4.5); Potassium 4.8 mmol/L (3.5-5.1); Sodium 139 mmol/L (137-145); Total Bilirubin 0.7 mg/dL (0.2-1.3); Total Protein 7.9 g/dL (6.3-8.2)
[2023-11-14] MEDS: SODIUM CHLORIDE 0.9% 500 ML 500 ML IV STA (20:59)
[2023-11-14] MEDS ORDERED: Magnesium Replacement Protocol 1 EACH MISC MISCELLANE PRN (21:12)
[2023-11-14] MEDS: MAGNESIUM SULFATE-D5W PMX 1 GM in DEXTROSE/WATER 1 100ML.BAG IVPB SCH (21:34)
[2023-11-14] MEDS: SODIUM CHLORIDE 0.9% 1,000 ML IV ONE (21:34)
[2023-11-14] MEDS: ACETAMINOPHEN TAB 325 MG TAB PO STA (21:38)
--- NOTE | 2023-11-14 21:39 | XR ---
EXAMINATION: XR chest 2V: 11/14/2023 9:29 PM CLINICAL INDICATION: Weakness TECHNIQUE: Departmental protocol COMPARISON: 09/19/2023 FINDINGS: Cardiac pacemaker and sternal sutures EKG leads. The lungs appear to be clear. The pleural spaces are negative. The cardiac silhouette appears moderately enlarged, unchanged. The skeletal structures and soft tissues are negative for acute findings. IMPRESSION: No definite acute radiographic process.
--- NOTE | 2023-11-14 23:48 | ED ---
Weakness HPI - General Chief complaint: Weakness Stated complaint: sepsis Time Seen by Provider: 11/14/23 20:05 Source: patient Mode of arrival: ambulatory Limitations: no limitations - History of Present Illness Initial comments: 73-year-old female brought in by her with chief complaint of generalized weakness. The patient came home from [place] today, they state that when she got home she was hardly able to stand. Patient admits to fatigue. Patient currently has lung cancer and is supposed to be starting chemotherapy soon, she follows with Dr. Dowell. She does admit to a cough and some shortness of breath. No chest pain. No unilateral leg swelling. No nausea vomiting abdominal pain or diarrhea. No known fevers at home. - Related Data Home Medications Medication Instructions Recorded Confirmed Spironolactone [Aldactone] 25 mg PO DAILY 08/04/17 11/14/23 Atorvastatin [Lipitor] 40 mg PO DAILY 01/01/18 11/14/23 Levothyroxine Sodium [Synthroid] 50 mcg PO DAILY 01/01/18 11/14/23 metFORMIN HCL [Glucophage] 500 mg PO BID 05/09/19 11/14/23 Gabapentin [Neurontin] 300 mg PO BID 09/17/23 11/14/23 Acetaminophen/Diphenhydramine 2 tab PO HS 11/14/23 11/14/23 [Tylenol PM 500-25mg] Albuterol Inhaler [Ventolin Hfa 1 - 2 puff INHALATION RT-Q6H PRN 11/14/23 11/14/23 Inhaler] Brompheniram/Phenylephrine/Dm 5 - 10 ml PO QID PRN 11/14/23 11/14/23 [Dimetapp Cold-Cough Liquid] Clopidogrel [Plavix] 75 mg PO DIRECTED 11/14/23 11/14/23 Colchicine 0.6 mg PO DAILY 11/14/23 11/14/23 Furosemide [Lasix] 40 mg PO DAILY 11/14/23 11/14/23 Insulin Glargine,Hum.rec.anlog 10 - 20 units SQ DAILY PRN 11/14/23 11/14/23 [Lantus Solostar Pen] Metoprolol Succinate (ER) [Toprol 50 mg PO DAILY 11/14/23 11/14/23 Xl] Omeprazole 20 mg PO DAILY 11/14/23 11/14/23 allopurinoL [Zyloprim] 300 mg PO DAILY 11/14/23 11/14/23 lisinopriL [Zestril] 5 mg PO DAILY 11/14/23 11/14/23 Previous Rx's Medication Instructions Recorded Digoxin [Lanoxin] 125 mcg PO DAILY tab 01/01/17 Allergies Allergy/AdvReac Type Severity Reaction Status Date / Time ampicillin [From Unasyn] AdvReac Severe Nausea & Verified 11/14/23 22:28 Vomiting sulbactam [From Unasyn] AdvReac Severe Nausea & Verified 11/14/23 22:28 Vomiting acetaminophen [From [place]] AdvReac Intermediate Nausea & Verified 11/14/23 22:28 Vomiting hydrocodone [From [place]] AdvReac Intermediate Nausea & Verified 11/14/23 22:28 Vomiting codeine AdvReac Nausea & Verified 11/14/23 22:28 [From Tylenol-Codeine #3] Vomiting morphine AdvReac nausea, Verified 11/14/23 22:28 vomiting, and confusion Review of Systems ROS Statement: Those systems with pertinent positive or pertinent negative responses have been documented in the HPI. ROS Other: All systems not noted in ROS Statement are negative. Past Medical History Past Medical History: Asthma, Coronary Artery Disease (CAD), Cancer, Diabetes Mellitus, GERD/Reflux, Hypertension, Myocardial Infarction (NV), Pneumonia, Thyroid Disorder Additional Past Medical History / Comment(s): NSTEMI in September 2016 with subs equent coronary artery bypass grafting x 1, BRAR to the LAD, in October 2016. Severe ischemic cardiomyopathy with estimated ejection fraction 25-30%. Pending AICD placement. Admitted for hypotension in 11-13-16. Remote history of left Breast cancer stage 4(1994) had mastectomy and radiation/chemo,had genetic testing done,was poisitve for BRCA 2 gene mutation, so had elective right mastectomy done. 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 Salgado. She received 4 chemo tx, pne/sepsis Last Myocardial Infarction Date:: History of Any Multi-Drug Resistant Organisms: C-DIFF Date of last positivie culture/infection: 10/2016 MDRO Source:: stool Past Surgical History: Appendectomy, Breast Surgery, Cholecystectomy, Coronary Bypass/CABG, Heart Catheterization, Hysterectomy, Pacemaker, Tubal Ligation Additional Past Surgical History / Comment(s): LT BREAST WAS POSTIVE FOR CANCER STAGE 4 cancer-had masectomy. 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 PT TESTED POSITIVE FOR BRCA 2 GENE.then 8 YEARS AGO HAD RT BREAST REMOVED (prophylactically). lt cataract removed, 10-07-16 CABG( 1 VESSEL), LT INTERNAL MAMMARY ARTERY TO LEFT ANT DESCENDING ARTERY. EVAN OOPHERECTOMY(PROPHYLATIC), LUNG NODULE REMOVED(CANCEROUS-lymhoma- AND RECEIVED SEVERAL CHEMO tx, several venous access devices since removed. Past Anesthesia/Blood Transfusion Reactions: No Reported Reaction Additional Past Anesthesia/Blood Transfusion Reaction / Comment(s): takes a bit to wake up after Type of Cardiac Device: Unknown Device Placement Date:: UNK Past Psychological History: No Psychological Hx Reported Smoking Status: Never smoker Past Alcohol Use History: None Reported Past Drug Use History: None Reported - Past Family History Mother Family Medical History: Diabetes Mellitus Additional Family Medical History / Comment(s): heart valve replacment Father Family Medical History: Cancer Additional Family Medical History / Comment(s): lung cancer Sister(s) Family Medical History: Cancer Additional Family Medical History / Comment(s): breast cancer General Exam Limitations: no limitations General appearance: alert, in no apparent distress Head exam: Present: atraumatic, normocephalic Eye exam: Present: normal appearance, EOMI Neck exam: Present: normal inspection Respiratory exam: Present: normal lung sounds bilaterally. Absent: respiratory distress, wheezes, rales, rhonchi, stridor Cardiovascular Exam: Present: normal rhythm, tachycardia, normal heart sounds. Absent: systolic murmur, diastolic murmur, rubs, gallop, clicks GI/Abdominal exam: Present: soft. Absent: distended, tenderness, guarding, rebound, rigid Neurological exam: Present: alert, oriented X3 Psychiatric exam: Present: normal affect, normal mood Skin exam: Present: warm, dry Course Vital Signs 11/14/23 11/14/23 11/14/23 19:54 21:00 22:10 Temperature 99.2 F Pulse Rate 105 H 101 H 91 Pulse Rate [ Left] Respiratory 20 18 16 Rate Blood Pressure 111/68 99/49 108/65 Blood Pressure [Left Arm] O2 Sat by Pulse 95 91 L 93 L Oximetry 11/14/23 11/15/23 11/15/23 23:29 00:35 01:29 Temperature 98.8 F 97.8 F Pulse Rate 90 86 Pulse Rate [ 90 Left] Respiratory 18 18 18 Rate Blood Pressure 95/58 97/50 Blood Pressure 95/56 [Left Arm] O2 Sat by Pulse 95 100 98 Oximetry Medical Decision Making - Medical Decision Making Was pt. sent in by a medical professional or institution (, PA, SALES OPERATIONS DIRECTOR, urgent care, hospital, or retirement...) When possible be specific @ -No Did you speak to anyone other than the patient for history (EMS, parent, family, police, friend...)? What history was obtained from this source @ -History supplemented by Did you review nursing and triage notes (agree or disagree)? Why? @ -I reviewed and agree with nursing and triage notes Were old charts reviewed (outside hosp., previous admission, EMS record, old EKG, old radiological studies, urgent care reports/EKG's, retirement records)? Report findings @ -No old charts were reviewed Differential Diagnosis (chest pain, altered mental status, abdominal pain women, abdominal pain men, vaginal bleeding, weakness, fever, dyspnea, syncope, headache, dizziness, GI bleed, back pain, seizure, CVA, palpatations, mental health, musculoskeletal)? @ -MDM Differential Weakness: Hypoglycemia, shock, sepsis, hyponatremia, anemia, infection, NV, ETOH, adverse medicine reaction, overdose, stroke. ... This is not meant to be an all- inclusive list EKG interpreted by me (3pts min.). @ -EKG shows electronic ventricular pacemaker. Ventricular rate 94. OK interval 150. QRS 110. QT 306. QTc 367. No acute changes from previous EKG X-rays interpreted by me (1pt min.). @ -Chest x-ray shows no definite acute radiographic process CT interpreted by me (1pt min.). @ -None done U/S interpreted by me (1pt. min.). @ -None done What testing was considered but not performed or refused? (CT, X-rays, U/S, labs)? Why? @ -None What meds were considered but not given or refused? Why? @ -None Did you discuss the management of the patient with other professionals (salomón waite i.e. , PA, SALES OPERATIONS DIRECTOR, lab, RT, psych nurse, social media content specialist, carton lettering machine operator, teacher, ict customer support officer, case maker)? Give summary @ -I spoke with Carlota EDWARDS from [facility] excepted admission Was smoking cessation discussed for >3mins.? @ -No Was critical care preformed (if so, how long)? @ -No Were there social determinants of health that impacted care today? How? (Homelessness, low income, unemployed, alcoholism, drug addiction, transportation, low edu. Level, literacy, decrease access to med. care, fci, rehab)? @ -No Was there de-escalation of care discussed even if they declined (Discuss DNR or withdrawal of care, Hospice)? DNR status @ -No What co-morbidities impacted this encounter? (DM, HTN, Smoking, COPD, CAD, Cancer, CVA, ARF, Chemo, Hep., AIDS, mental health diagnosis, sleep apnea, morb id obesity)? @ -Cancer, diabetes, asthma Was patient admitted / discharged? Hospital course, mention meds given and route, prescriptions, significant lab abnormalities, going to OR and other pertinent info. @ -73-year-old female presenting with chief complaint of generalized weakness. Patient states she has been weak for a few days but it was significantly worse today. History and physical exam were conducted. Upon arrival the patient is a bit tachycardic and has soft blood pressures. Her oxygenation decreases to the low 90s on room air, she required 2 L via nasal cannula, she does not wear oxygen at home. Lab work shows no leukocytosis or anemia. BUN 48 creatinine 1.77, this is mildly elevated from her baseline, received 1.5 L fluid bolus and started on maintenance rate of 130 mL/h of normal saline. Magnesium 1.5, patient is receiving magnesium replacement. She is positive for COVID. Chest x-ray shows no acute process. EKG shows no acute changes from previous. Patient is unable to ambulate. UA is pending. She will be admitted for observation. She is agreeable with this plan. I discussed this case with my attending Dr. De Undiagnosed new problem with uncertain prognosis? @ -No Drug Therapy requiring intensive monitoring for toxicity (Heparin, Nitro, Insulin, Cardizem)? @ -No Were any procedures done? @ -No Diagnosis/symptom? @ -COVID, weakness, dehydration Acute, or Chronic, or Acute on Chronic? @ -Acute Uncomplicated (without systemic symptoms) or Complicated (systemic symptoms)? @ -Complicated Side effects of treatment? @ -No Exacerbation, Progression, or Severe Exacerbation? @ -No Poses a threat to life or bodily function? How? (Chest pain, USA, NV, pneumonia, PE, COPD, DKA, ARF, appy, cholecystitis, CVA, Diverticulitis, Homicidal, Suicidal, threat to staff... and all critical care pts) @ -yes - Lab Data Result diagrams: 11/14/23 20:18 11/14/23 20:18 Lab Results 11/14/23 11/14/23 11/14/23 Range/Units 20:18 20:18 20:18 WBC 9.6 (3.8-10.6) k/uL RBC 3.67 L (3.80-5.40) m/uL Hgb 11.7 (11.4-16.0) gm/dL Hct 36.3 (34.0-46.0) % MCV 98.7 (80.0-100.0) fL MCH 31.9 (25.0-35.0) pg MCHC 32.3 (31.0-37.0) g/dL RDW 16.7 H (11.5-15.5) % Plt Count 191 (150-450) k/uL MPV 8.2 Neutrophils % 64 % Lymphocytes % 22 % Monocytes % 10 % Eosinophils % 1 % Basophils % 2 % Neutrophils # 6.1 (1.3-7.7) k/uL Lymphocytes # 2.1 (1.0-4.8) k/uL Monocytes # 0.9 (0-1.0) k/uL Eosinophils # 0.1 (0-0.7) k/uL Basophils # 0.2 (0-0.2) k/uL Hypochromasia Slight Anisocytosis Slight Macrocytosis Slight PT 11.6 (10.0-12.5) sec INR 1.1 (<1.2) APTT 24.0 (22.0-30.0) sec Sodium 139 (137-145) mmol/L Potassium 4.8 (3.5-5.1) mmol/L Chloride 102 (98-107) mmol/L Carbon Dioxide 27 (22-30) mmol/L Anion Gap 10 mmol/L BUN 48 H (7-17) mg/dL Creatinine 1.77 H (0.52-1.04) mg/dL Est GFR (CKD-EPI)AfAm 32 (>60 ml/min/1.73 sqM) Est GFR (CKD-EPI)NonAf 28 (>60 ml/min/1.73 sqM) Glucose 122 H (74-99) mg/dL Plasma Lactic Acid [place] (0.7-2.0) mmol/L Calcium 9.1 (8.4-10.2) mg/dL Phosphorus 3.9 (2.5-4.5) mg/dL Magnesium 1.5 L (1.6-2.3) mg/dL Total Bilirubin 0.7 (0.2-1.3) mg/dL AST 37 H (14-36) U/L ALT 31 (4-34) U/L Alkaline Phosphatase 94 (38-126) U/L Troponin I (0.000-0.034) ng/mL Total Protein 7.9 (6.3-8.2) g/dL Albumin 4.6 (3.5-5.0) g/dL TSH 1.840 (0.465-4.680) mIU/L Influenza Type A (PCR) (Not Detectd) Influenza Type B (PCR) (Not Detectd) RSV (PCR) (Not Detectd) SARS-CoV-2 (PCR) (Not Detectd) 11/14/23 11/14/23 11/14/23 Range/Units 20:18 20:18 20:29 WBC (3.8-10.6) k/uL RBC (3.80-5.40) m/uL Hgb (11.4-16.0) gm/dL Hct (34.0-46.0) % MCV (80.0-100.0) fL MCH (25.0-35.0) pg MCHC (31.0-37.0) g/dL RDW (11.5-15.5) % Plt Count (150-450) k/uL MPV Neutrophils % % Lymphocytes % % Monocytes % % Eosinophils % % Basophils % % Neutrophils # (1.3-7.7) k/uL Lymphocytes # (1.0-4.8) k/uL Monocytes # (0-1.0) k/uL Eosinophils # (0-0.7) k/uL Basophils # (0-0.2) k/uL Hypochromasia Anisocytosis Macrocytosis PT (10.0-12.5) sec INR (<1.2) APTT (22.0-30.0) sec Sodium (137-145) mmol/L Potassium (3.5-5.1) mmol/L Chloride (98-107) mmol/L Carbon Dioxide (22-30) mmol/L Anion Gap mmol/L BUN (7-17) mg/dL Creatinine (0.52-1.04) mg/dL Est GFR (CKD-EPI)AfAm (>60 ml/min/1.73 sqM) Est GFR (CKD-EPI)NonAf (>60 ml/min/1.73 sqM) Glucose (74-99) mg/dL Plasma Lactic Acid [place] 1.5 (0.7-2.0) mmol/L Calcium (8.4-10.2) mg/dL Phosphorus (2.5-4.5) mg/dL Magnesium (1.6-2.3) mg/dL Total Bilirubin (0.2-1.3) mg/dL AST (14-36) U/L ALT (4-34) U/L Alkaline Phosphatase (38-126) U/L Troponin I 0.015 (0.000-0.034) ng/mL Total Protein (6.3-8.2) g/dL Albumin (3.5-5.0) g/dL TSH (0.465-4.680) mIU/L Influenza Type A (PCR) Not Detected (Not Detectd) Influenza Type B (PCR) Not Detected (Not Detectd) RSV (PCR) Not Detected (Not Detectd) SARS-CoV-2 (PCR) Detected A (Not Detectd) Disposition Clinical Impression: COVID-19, Weakness Disposition: ADMITTED IP TO THIS HOSP Condition: Serious Time of Disposition: 23:48
[2023-11-15] MEDS: SODIUM CHLORIDE 0.9% 1,000 ML IV SCH (00:23)
[2023-11-15] MEDS ORDERED: NALOXONE 0.4 MG/ML 1 ML VIAL IV PRN (00:33)
[2023-11-15] MEDS ORDERED: BENZONATATE 100 MG CAP PO PRN (03:30)
--- NOTE | 2023-11-15 03:30 | P.CNPUL ---
History of Present Illness Consult date: 11/15/23 Requesting physician: Gay Campos Reason for consult: other (COVID) Chief complaint: URI-like symptoms History of present illness: I am seeing this patient in consultation today 11/15/2023 after supplanted with URI-like symptoms and tested positive for COVID. Patient is a 73-year-old white female with past medical history significant for recent diagnosis of squamous cell lung carcinoma, remote metastatic breast cancer with BRCA a 2 gene mutation status post bilateral mastectomy and bone marrow transplantation followed by chemotherapy, non-Hodgkin's lymphoma with lung nodule and previous lung resection, coronary artery disease, ischemic cardiomyopathy with an EF of 25 to 30% status post AICD/pacemaker implantation, among other things. She follows with Dr. Ulloa for her primary care services. 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 FEV1 is 59% of predicted. An FEV1/FVC is 69%. DLCO 53% of predicted not corrected for hemoglobin. No significant bronchodilator response. States she does not routinely use any inhalers at home. Patient was found to have a right upper lobe lung nodule. On 09/19/2023 she underwent robotic assisted bronchoscopy and EBUS of the right upper lung nodule and right paratracheal lymph node, both positive for squamous cell carcinoma. She follows up with Dr. Dowell, but elected to receive treatment in [place]. She [place] a [place] home. Upon arrival to the outside institution, she was not able to receive her chemo/radiation at this facility. She traveled back to [place] today, and just got off the plane. Approximately 2 days ago patient started to have "cold symptoms ". She is complaining of runny nose, sore throat, cough with yellow sputum. Denies fevers. Since then, she has become more short of breath and presented to emergency room late last night. She tested positive for COVID on arrival. States she received her original Moderna vaccination, but no booster injections. No previous known COVID infections. Chest x-ray and I will did not show any acute pulmonary infiltrates or evidence of COVID pneumonia. She was originally on supplemental oxygen, but this was weaned off and is currently on room air. SpO2 was 95%. She is comfortable in no acute distress. She does have a persistent cough. CBC on arrival unremarkable. No leukocytosis. BMP on arrival: Sodium 139, potassium 4.8, chloride 102, serum bicarb 27, BUN 48, creatinine 1.77, glucose 122. Normal saline infusing at 130 mL/h. Troponin 0.015. Lactic 1.5. Vitals are stable. Review of Systems REVIEW OF SYSTEMS: CONSTITUTIONAL: Denies any recent significant weight loss or weight gain. EYES: Denies change in vision. EARS, NOSE, MOUTH, THROAT: Admits admits runny nose postnasal drip and sore throat CARDIOVASCULAR: Denies chest pain, palpitations, syncopal episodes, or lower extremity swelling. RESPIRATORY: see HPI GASTROINTESTINAL: Denies change in appetite, abdominal pain, nausea and vomiting , or diarrhea GENITOURINARY: Denies hematuria, denies infections. MUSKULOSKELETAL: Denies pain, denies swelling. INTEGUMENTARY: Denies rash, denies eczema. NEUROLOGICAL: Denies recent memory loss, no recent seizure activity. PSYCHIATRIC: Denies anxiety, denies depression. HEMATOLOGIC/LYMPHATIC: Denies anemia, denies enlarged lymph node Past Medical History Past Medical History: Asthma, Coronary Artery Disease (CAD), Cancer, Diabetes Mellitus, GERD/Reflux, Hypertension, Myocardial Infarction ([place]), Pneumonia, Thyroid Disorder Additional Past Medical History / Comment(s): NSTEMI in September 2016 with subsequent coronary artery bypass grafting x 1, BRAR to the LAD, in October 2016. Severe ischemic cardiomyopathy with estimated ejection fraction 25-30%. Pending AICD placement. Admitted for hypotension in 11-13-16. Remote history of left Breast cancer stage 4(1994) had mastectomy and radiation/chemo,had genetic testing done,was poisitve for BRCA 2 gene mutation, so had elective right mastectomy done. Left upper lobe lung nodule positive for B-lymphoma was biopsied at [facility], and left upper lobe was resected by Dr. Salgado. She received 4 chemo tx, pne/sepsis Last Myocardial Infarction Date:: History of Any Multi-Drug Resistant Organisms: C-DIFF Date of last positivie culture/infection: 10/2016 MDRO Source:: stool Past Surgical History: Appendectomy, Breast Surgery, Cholecystectomy, Coronary Bypass/CABG, Heart Catheterization, Hysterectomy, Pacemaker, Tubal Ligation Additional Past Surgical History / Comment(s): LT BREAST WAS POSTIVE FOR CANCER STAGE 4 cancer-had masectomy. 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 PT TESTED POSITIVE FOR BRCA 2 GENE.then 8 YEARS AGO HAD RT BREAST REMOVED (prophylactically). lt cataract removed, 10-07-16 CABG( 1 VESSEL), LT INTERNAL MAMMARY ARTERY TO LEFT ANT DESCENDING ARTERY. EVAN OOPHERECTOMY(PROPHYLATIC), LUNG NODULE REMOVED(CANCEROUS-lymhoma- AND RECEIVED SEVERAL CHEMO tx, several venous access devices since removed. Past Anesthesia/Blood Transfusion Reactions: No Reported Reaction Additional Past Anesthesia/Blood Transfusion Reaction / Comment(s): takes a bit to wake up after Type of Cardiac Device: Unknown Device Placement Date:: UNK Past Psychological History: No Psychological Hx Reported Smoking Status: Never smoker Past Alcohol Use History: None Reported Past Drug Use History: None Reported - Past Family History Mother Family Medical History: Diabetes Mellitus Additional Family Medical History / Comment(s): heart valve replacment Father Family Medical History: Cancer Additional Family Medical History / Comment(s): lung cancer Sister(s) Family Medical History: Cancer Additional Family Medical History / Comment(s): breast cancer Medications and Allergies Home Medications Medication Instructions Recorded Confirmed Type Digoxin [Lanoxin] 125 mcg PO DAILY tab 01/01/17 11/14/23 Rx Spironolactone [Aldactone] 25 mg PO DAILY 08/04/17 11/14/23 History Atorvastatin [Lipitor] 40 mg PO DAILY 01/01/18 11/14/23 History Levothyroxine Sodium [Synthroid] 50 mcg PO DAILY 01/01/18 11/14/23 History metFORMIN HCL [Glucophage] 500 mg PO BID 05/09/19 11/14/23 History Gabapentin [Neurontin] 300 mg PO BID 09/17/23 11/14/23 History Acetaminophen/Diphenhydramine 2 tab PO HS 11/14/23 11/14/23 History [Tylenol PM 500-25mg] Albuterol Inhaler [Ventolin Hfa 1 - 2 puff INHALATION RT-Q6H PRN 11/14/23 11/14/23 History Inhaler] Brompheniram/Phenylephrine/Dm 5 - 10 ml PO QID PRN 11/14/23 11/14/23 History [Dimetapp Cold-Cough Liquid] Clopidogrel [Plavix] 75 mg PO DIRECTED 11/14/23 11/14/23 History Colchicine 0.6 mg PO DAILY 11/14/23 11/14/23 History Furosemide [Lasix] 40 mg PO DAILY 11/14/23 11/14/23 History Insulin Glargine,Hum.rec.anlog 10 - 20 units SQ DAILY PRN 11/14/23 11/14/23 History [Lantus Solostar Pen] Metoprolol Succinate (ER) [Toprol 50 mg PO DAILY 11/14/23 11/14/23 History Xl] Omeprazole 20 mg PO DAILY 11/14/23 11/14/23 History allopurinoL [Zyloprim] 300 mg PO DAILY 11/14/23 11/14/23 History lisinopriL [Zestril] 5 mg PO DAILY 11/14/23 11/14/23 History Allergies Allergy/AdvReac Type Severity Reaction Status Date / Time ampicillin [From Unasyn] AdvReac Severe Nausea & Verified 11/14/23 22:28 Vomiting sulbactam [From Unasyn] AdvReac Severe Nausea & Verified 11/14/23 22:28 Vomiting acetaminophen [From [place]] AdvReac Intermediate Nausea & Verified 11/14/23 22:28 Vomiting hydrocodone [From [place]] AdvReac Intermediate Nausea & Verified 11/14/23 22:28 Vomiting codeine AdvReac Nausea & Verified 11/14/23 22:28 [From Tylenol-Codeine #3] Vomiting morphine AdvReac nausea, Verified 11/14/23 22:28 vomiting, and confusion Physical Exam Vitals: Vital Signs Temp Pulse Pulse Resp BP BP Pulse Ox 11/15/23 01:29 86 18 97/50 98 11/15/23 00:35 97.8 F 90 18 95/56 100 11/14/23 23:29 98.8 F 90 18 95/58 95 11/14/23 22:10 91 16 108/65 93 L 11/14/23 21:00 101 H 18 99/49 91 L 11/14/23 19:54 99.2 F 105 H 20 111/68 95 Intake and Output 11/14/23 11/14/23 11/15/23 14:59 22:59 06:59 Other: Weight 60.328 kg 60.328 kg GENERAL EXAM: Alert, 73-year-old white female, well-nourished, comfortable in no apparent distress. HEAD: Normocephalic and atraumatic EYES: Normal reaction of pupils, equal size. NOSE: Clear with pink turbinates. THROAT: No erythema or exudates. NECK: No masses, no JVD. CHEST: No chest wall deformity. LUNGS: Equal air entry with scattered rhonchi. No significant wheezing, crackles, dullness. On room air. No conversational dyspnea or accessory muscle use. She does have persistent cough. CVS: S1 and S2 normal with harsh systolic murmur, regular rhythm. No extra heart sounds ABDOMEN: No hepatosplenomegaly, active bowel sounds, no guarding or rigidity. SPINE: No scoliosis or deformity SKIN: No rashes CENTRAL NERVOUS SYSTEM: No focal deficits, tone is normal in all 4 extremities. EXTREMITIES: There is no peripheral edema, clubbing, or cyanosis. Peripheral pulses are intact. Results - Laboratory Findings CBC and BMP: 11/14/23 20:18 11/14/23 20:18 PT/INR, D-dimer PT 11.6 sec (10.0-12.5) 11/14/23 20:18 INR 1.1 (<1.2) 11/14/23 20:18 Abnormal lab findings: Abnormal Labs 11/14/23 11/14/23 11/14/23 20:18 20:18 20:18 RBC 3.67 L RDW 16.7 H BUN 48 H Creatinine 1.77 H Glucose 122 H Magnesium 1.5 L AST 37 H SARS-CoV-2 (PCR) Detected A - Diagnostic Findings Chest x-ray: image reviewed Assessment and Plan Assessment: Acute dyspnea, secondary to acute COVID infection. Chest x-ray shows no acute infiltrates or evidence of COVID-pneumonia. Squamous cell lung carcinoma, involving the right upper lobe and right paratracheal lymph node, diagnosed on 09/19/2023 with robotic Ion bronchoscopy and EBUS. Has not started treatment yet. Chronic obstructive pulmonary disease, stable Acute on chronic kidney disease, possibly secondary to dehydration and reduced oral intake Remote history of metastatic breast cancer, status post stem cell transplant and follow-up chemotherapy, she is BRCA2 positive and has had bilateral mastectomy History of non-Hodgkin's lymphoma, discovered as lung nodule of the left upper lobe and underwent wedge resection at outside facility Coronary artery disease, with previous history of CABG Severe ischemic cardiomyopathy, with a baseline ejection fraction of 20 to 35%, status post AICD/pacemaker History of hypertension History of hyperlipidemia Never smoker Plan: Patient's medications, labs, chest x-ray reviewed Patient originally requiring supplemental oxygen, but currently on room air. No evidence of COVID-pneumonia Continue albuterol HFA Patient has not started treatment for her lung cancer yet, states this was scheduled for next week. Continue IV hydration Lovenox for DVT prophylaxis and Protonix for GI prophylaxis We will continue to follow I have personally seen and examined the patient, performed the documentation and the assessment and plan as written. Number of minutes spent on the visit:20 Time with Patient: Greater than 30
[2023-11-15] MEDS: PANTOPRAZOLE 40 MG TABLET PO SCH (06:09)
[2023-11-15] MEDS: ACETAMINOPHEN TAB 325 MG TAB PO PRN (06:44)
[2023-11-15] MEDS: ALBUTEROL HFA INHALER INHALATION SCH (07:36)
[2023-11-15] MEDS: ENOXAPARIN 40 MG/0.4 ML SYRINGE SQ SCH (08:29)
[2023-11-15] MEDS ORDERED: INSULIN DETEMIR (LEVEMIR) 100 UNIT/ML SYR SQ PRN (09:52)
[2023-11-15] MEDS ORDERED: ALBUTEROL NEBULIZED 2.5 MG/3 ML INHALATION PRN (09:52)
[2023-11-15] MEDS ORDERED: DEXTROSE 50% SYRINGE 50 ML IVP PRN ×2 (09:53)
[2023-11-15] MEDS ORDERED: CLOPIDOGREL 75 MG TAB PO SCH (10:00)
[2023-11-15] MEDS ORDERED: ALBUTEROL HFA INHALER INHALATION PRN (10:07)
--- NOTE | 2023-11-15 11:38 | P.HPIM ---
History of Present Illness H&P Date: 11/15/23 History of present illness; Patient is a 73-year-old lady with past medical history significant for recent diagnosis of squamous cell lung carcinoma, remote metastatic breast cancer with BRCA a 2 gene mutation status post bilateral mastectomy and bone marrow transplantation followed by chemotherapy, non- Hodgkin's lymphoma with lung nodule and previous lung resection, coronary artery disease, ischemic cardiomyopathy with an EF of 25 to 30% status post AICD/pacemaker implantation presented to the ER for generalized weakness. Patient stated that she currently resides in [place] and just came back to [place]. Patient was complaining of nasal stuffiness and generalized weakness. Patient was also complaining of cough and shortness of breath. There was no complaint of fever or chills. No complaint of recent sick contact. There was no complaint of chest pain. Denies any nausea, vomit abdominal pain. Because of generalized weakness, patient was worked up in the ER Initial lab work done in the ER showed WBC 9.6, hemoglobin 11.7, platelet count 191, sodium 139, potassium 4.8, BUN 40, creatinine 1.77, glucose 122, magnesium 1.5, AST 37, ALT 31, Influenza A not detected Influenza B not detected RSV not detected COVID-19 detected EKG done in the ER showed heart rate of , no ST segment elevation or depression seen, no T-wave inversions seen. Chest x-ray done in the ER no acute radiographic process Patient admitted to internal medicine service REVIEW OF SYSTEMS: CONSTITUTIONAL: As mentioned above HEENT: No recent visual problems or hearing problems. Denied any sore throat. CARDIOVASCULAR: As mentioned above PULMONARY: No shortness of breath, no cough, no hemoptysis. GASTROINTESTINAL: No diarrhea, no nausea, no vomiting, no abdominal pain. NEUROLOGICAL: No headaches, no weakness, no numbness. HEMATOLOGICAL: Denies any bleeding or petechiae. GENITOURINARY: Denies any burning micturition, frequency, or urgency. MUSCULOSKELETAL/RHEUMATOLOGICAL: Denies any joint pain, swelling, or any muscle pain. ENDOCRINE: Denies any polyuria or polydipsia. The rest of the 14-point review of systems is negative. PHYSICAL EXAMINATION: GENERAL: The patient is alert and oriented x3, not in any acute distress. Well developed, well nourished. HEENT: Pupils are round and equally reacting to light. EOMI. No scleral icterus. No conjunctival pallor. Normocephalic, atraumatic. No pharyngeal erythema. No thyromegaly. CARDIOVASCULAR: S1 and S2 present. No murmurs, rubs, or gallops. PULMONARY: Coarse breath sound bilaterally, expiratory wheeze audible ABDOMEN: Soft, nontender, nondistended, normoactive bowel sounds. No palpable organomegaly. MUSCULOSKELETAL: No joint swelling or deformity. EXTREMITIES: No cyanosis, clubbing, or pedal edema. NEUROLOGICAL: Gross neurological examination did not reveal any focal deficits. SKIN: No rashes. Assessment and plan COVID-19 Squamous cell lung carcinoma Chronic obstructive pulmonary disease Acute on chronic kidney disease Hypomagnesemia Remote history of metastatic breast cancer, status post stem cell transplant and follow-up chemotherapy, she is BRCA2 positive and has had bilateral mastectomy History of non-Hodgkin's lymphoma Coronary artery disease, with previous history of CABG Severe ischemic cardiomyopathy, with a baseline ejection fraction of 20 to 35%, status post AICD/pacemaker History of hypertension History of hyperlipidemia Monitor vital signs Monitor CBC Monitor CMP Continue telemetry monitoring Continue COVID-19 isolation Continue gentle hydration Continue breathing treatments Resume home meds. Consult pulmonary Consult ID Labs and medication were reviewed.. Continue same treatment. Continue with symptomatic treatment. Resume home medication. Monitor labs and vitals. DVT and GI prophylaxis. Further recommendations as per clinical course of the patient Dictation was produced using [employer] dictation software. please excuse any grammatical, word or spelling errors. Past Medical History Past Medical History: Asthma, Coronary Artery Disease (CAD), Cancer, Diabetes Mellitus, GERD/Reflux, Hypertension, Myocardial Infarction ([place]), Pneumonia, T hyroid Disorder Additional Past Medical History / Comment(s): NSTEMI in September 2016 with subsequent coronary artery bypass grafting x 1, BRAR to the LAD, in October 2016. Severe ischemic cardiomyopathy with estimated ejection fraction 25-30%. Pending AICD placement. Admitted for hypotension in 11-13-16. Remote history of left Breast cancer stage 4(1994) had mastectomy and radiation/chemo,had genetic testing done,was poisitve for BRCA 2 gene mutation, so had elective right mastectomy done. Left upper lobe lung nodule positive for B-lymphoma was biopsied at [facility], and left upper lobe was resected by Dr. Salgado. She received 4 chemo tx, pne/sepsis Last Myocardial Infarction Date:: History of Any Multi-Drug Resistant Organisms: C-DIFF Date of last positivie culture/infection: 10/2016 MDRO Source:: stool Past Surgical History: Appendectomy, Breast Surgery, Cholecystectomy, Coronary Bypass/CABG, Heart Catheterization, Hysterectomy, Pacemaker, Tubal Ligation Additional Past Surgical History / Comment(s): LT BREAST WAS POSTIVE FOR CANCER STAGE 4 cancer-had masectomy. 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 PT TESTED POSITIVE FOR BRCA 2 GENE.then 8 YEARS AGO HAD RT BREAST REMOVED (prophylactically). lt cataract removed, 10-07-16 CABG( 1 VESSEL), LT INTERNAL MAMMARY ARTERY TO LEFT ANT DESCENDING ARTERY. EVAN OOPHERECTOMY(PROPHYLATIC), LUNG NODULE REMOVED(CANCEROUS-lymhoma- AND RECEIVED SEVERAL CHEMO tx, several venous access devices since removed. Past Anesthesia/Blood Transfusion Reactions: No Reported Reaction Additional Past Anesthesia/Blood Transfusion Reaction / Comment(s): takes a bit to wake up after Type of Cardiac Device: Unknown Device Placement Date:: UNK Past Psychological History: No Psychological Hx Reported Smoking Status: Never smoker Past Alcohol Use History: None Reported Past Drug Use History: None Reported - Past Family History Mother Family Medical History: Diabetes Mellitus Additional Family Medical History / Comment(s): heart valve replacment Father Family Medical History: Cancer Additional Family Medical History / Comment(s): lung cancer Sister(s) Family Medical History: Cancer Additional Family Medical History / Comment(s): breast cancer Medications and Allergies Home Medications Medication Instructions Recorded Confirmed Type Digoxin [Lanoxin] 125 mcg PO DAILY tab 01/01/17 11/14/23 Rx Spironolactone [Aldactone] 25 mg PO DAILY 08/04/17 11/14/23 History Atorvastatin [Lipitor] 40 mg PO DAILY 01/01/18 11/14/23 History Levothyroxine Sodium [Synthroid] 50 mcg PO DAILY 01/01/18 11/14/23 History metFORMIN HCL [Glucophage] 500 mg PO BID 05/09/19 11/14/23 History Gabapentin [Neurontin] 300 mg PO BID 09/17/23 11/14/23 History Acetaminophen/Diphenhydramine 2 tab PO HS 11/14/23 11/14/23 History [Tylenol PM 500-25mg] Albuterol Inhaler [Ventolin Hfa 1 - 2 puff INHALATION RT-Q6H PRN 11/14/23 11/14/23 History Inhaler] Brompheniram/Phenylephrine/Dm 5 - 10 ml PO QID PRN 11/14/23 11/14/23 History [Dimetapp Cold-Cough Liquid] Clopidogrel [Plavix] 75 mg PO DIRECTED 11/14/23 11/14/23 History Colchicine 0.6 mg PO DAILY 11/14/23 11/14/23 History Furosemide [Lasix] 40 mg PO DAILY 11/14/23 11/14/23 History Insulin Glargine,Hum.rec.anlog 10 - 20 units SQ DAILY PRN 11/14/23 11/14/23 History [Lantus Solostar Pen] Metoprolol Succinate (ER) [Toprol 50 mg PO DAILY 11/14/23 11/14/23 History Xl] Omeprazole 20 mg PO DAILY 11/14/23 11/14/23 History allopurinoL [Zyloprim] 300 mg PO DAILY 11/14/23 11/14/23 History lisinopriL [Zestril] 5 mg PO DAILY 11/14/23 11/14/23 History Allergies Allergy/AdvReac Type Severity Reaction Status Date / Time ampicillin [From Unasyn] AdvReac Severe Nausea & Verified 11/14/23 22:28 Vomiting sulbactam [From Unasyn] AdvReac Severe Nausea & Verified 11/14/23 22:28 Vomiting acetaminophen [From [place]] AdvReac Intermediate Nausea & Verified 11/14/23 22:28 Vomiting hydrocodone [From [place]] AdvReac Intermediate Nausea & Verified 11/14/23 22:28 Vomiting codeine AdvReac Nausea & Verified 11/14/23 22:28 [From Tylenol-Codeine #3] Vomiting morphine AdvReac nausea, Verified 11/14/23 22:28 vomiting, and confusion Physical Exam Vitals: Vital Signs Temp Pulse Pulse Resp BP BP Pulse Ox 11/15/23 07:23 98.4 F 92 19 110/63 96 11/15/23 01:29 86 18 97/50 98 11/15/23 00:35 97.8 F 90 18 95/56 100 11/14/23 23:29 98.8 F 90 18 95/58 95 11/14/23 22:10 91 16 108/65 93 L 11/14/23 21:00 101 H 18 99/49 91 L 11/14/23 19:54 99.2 F 105 H 20 111/68 95 Intake and Output 11/14/23 11/15/23 11/15/23 22:59 06:59 14:59 Other: # Voids 2 # Bowel Movements 1 Weight 60.328 kg 60.328 kg Results CBC & Chem 7: 11/14/23 20:18 11/14/23 20:18 Labs: Abnormal Lab Results - Last 24 Hours (Table) 11/14/23 11/14/23 11/14/23 Range/Units 20:18 20:18 20:18 RBC 3.67 L (3.80-5.40) m/uL RDW 16.7 H (11.5-15.5) % BUN 48 H (7-17) mg/dL Creatinine 1.77 H (0.52-1.04) mg/dL Glucose 122 H (74-99) mg/dL Magnesium 1.5 L (1.6-2.3) mg/dL AST 37 H (14-36) U/L SARS-CoV-2 (PCR) Detected A (Not Detectd) Thrombosis Risk Factor Assmnt - Choose All That Apply Any of the Below Risk Factors Present?: Yes Each Risk Factor Represents 2 Points: Age 61-74 years Thrombosis Risk Factor Assessment Total Risk Factor Score: 2 Thrombosis Risk Factor Assessment Level: Low Risk
[2023-11-15] MEDS: INSULIN ASPART (NovoLOG) 100 UNIT/ML VIAL SQ SCH (12:48)
--- NOTE | 2023-11-15 13:17 | P.CNPUL ---
History of Present Illness Consult date: 11/15/23 Reason for consult: dyspnea History of present illness: This is a 73-year-old female patient was hospitalized for worsening shortness of breath. The patient is known to have COPD and squamous cell carcinoma of the lung and the patient has a recent diagnosis of lung cancer diagnosed on 09/19/2023 and I performed a robotic bronchoscopy on the patient for a right perihilar mass which extended superiorly and the bronchoscopy revealed squamous cell carcinoma of the lung. Note that the patient also has a remote history of metastatic breast cancer and she carries the BRCA gene mutation and she has undergone bilateral mastectomy and she has undergone a previous bone marrow transplantation for history of large B-cell lymphoma, coronary artery disease, ischemic cardiomyopathy with an EF around 25 to 30% and previous AICD placement. The patient has an FEV1 of 59% of predicted consistent with moderate severe COPD. The patient passed presented to the emergency department with worsening shortness of breath. She started with having cold symptoms and subsequently started having increased cough and congestion and yellowish sputum production. Denies having any fever. She tested positive for COVID-19. She has taken her original Moderna vaccination. No booster shots. No previous history of COVID- 19 infection. The chest x-ray did not show any acute pulmonary infiltrates. The patient's pulse ox currently is 96% on room air oxygen. She was started on IV fluids. Electrolytes are stable. Creatinine was 1.7 with a BUN of 48. The patient was started on home Synthroid 136. Lactic acid is at 1.5. Normal coagulation profile. LFTs are normal. TSH is at 1.8. T Review of Systems CONSTITUTIONAL: Denies any recent significant weight loss or weight gain. EYES: Denies change in vision. EARS, NOSE, MOUTH, THROAT: Admits admits runny nose postnasal drip and sore throat CARDIOVASCULAR: Denies chest pain, palpitations, syncopal episodes, or lower extremity swelling. RESPIRATORY: see HPI GASTROINTESTINAL: Denies change in appetite, abdominal pain, nausea and vomiting, or diarrhea GENITOURINARY: Denies hematuria, denies infections. MUSKULOSKELETAL: Denies pain, denies swelling. INTEGUMENTARY: Denies rash, denies eczema. NEUROLOGICAL: Denies recent memory loss, no recent seizure activity. PSYCHIATRIC: Denies anxiety, denies depression. HEMATOLOGIC/LYMPHATIC: Denies anemia, denies enlarged lymph node Past Medical History Past Medical History: Asthma, Coronary Artery Disease (CAD), Cancer, Diabetes Mellitus, GERD/Reflux, Hypertension, Myocardial Infarction ([place]), Pneumonia, Thyroid Disorder Additional Past Medical History / Comment(s): NSTEMI in September 2016 with subsequent coronary artery bypass grafting x 1, BRAR to the LAD, in October 2016. Severe ischemic cardiomyopathy with estimated ejection fraction 25-30%. Pending AICD placement. Admitted for hypotension in 11-13-16. Remote history of left Breast cancer stage 4(1994) had mastectomy and radiation/chemo,had genetic testing done,was poisitve for BRCA 2 gene mutation, so had elective right mastectomy done. Left upper lobe lung nodule positive for B-lymphoma was biopsied at [facility], and left upper lobe was resected by Dr. Salgado. She received 4 chemo tx, pne/sepsis Last Myocardial Infarction Date:: History of Any Multi-Drug Resistant Organisms: C-DIFF Date of last positivie culture/infection: 10/2016 MDRO Source:: stool Past Surgical History: Appendectomy, Breast Surgery, Cholecystectomy, Coronary Bypass/CABG, Heart Catheterization, Hysterectomy, Pacemaker, Tubal Ligation Additional Past Surgical History / Comment(s): LT BREAST WAS POSTIVE FOR CANCER STAGE 4 cancer-had masectomy. 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 PT TESTED POSITIVE FOR BRCA 2 GENE.then 8 YEARS AGO HAD RT BREAST REMOVED (proph ylactically). lt cataract removed, 10-07-16 CABG( 1 VESSEL), LT INTERNAL MAMMARY ARTERY TO LEFT ANT DESCENDING ARTERY. EVAN OOPHERECTOMY(PROPHYLATIC), LUNG NODULE REMOVED(CANCEROUS-lymhoma- AND RECEIVED SEVERAL CHEMO tx, several venous access devices since removed. Past Anesthesia/Blood Transfusion Reactions: No Reported Reaction Additional Past Anesthesia/Blood Transfusion Reaction / Comment(s): takes a bit to wake up after Type of Cardiac Device: Unknown Device Placement Date:: UNK Past Psychological History: No Psychological Hx Reported Smoking Status: Never smoker Past Alcohol Use History: None Reported Past Drug Use History: None Reported - Past Family History Mother Family Medical History: Diabetes Mellitus Additional Family Medical History / Comment(s): heart valve replacment Father Family Medical History: Cancer Additional Family Medical History / Comment(s): lung cancer Sister(s) Family Medical History: Cancer Additional Family Medical History / Comment(s): breast cancer Medications and Allergies Home Medications Medication Instructions Recorded Confirmed Type Digoxin [Lanoxin] 125 mcg PO DAILY tab 01/01/17 11/14/23 Rx Spironolactone [Aldactone] 25 mg PO DAILY 08/04/17 11/14/23 History Atorvastatin [Lipitor] 40 mg PO DAILY 01/01/18 11/14/23 History Levothyroxine Sodium [Synthroid] 50 mcg PO DAILY 01/01/18 11/14/23 History metFORMIN HCL [Glucophage] 500 mg PO BID 05/09/19 11/14/23 History Gabapentin [Neurontin] 300 mg PO BID 09/17/23 11/14/23 History Acetaminophen/Diphenhydramine 2 tab PO HS 11/14/23 11/14/23 History [Tylenol PM 500-25mg] Albuterol Inhaler [Ventolin Hfa 1 - 2 puff INHALATION RT-Q6H PRN 11/14/23 11/14/23 History Inhaler] Brompheniram/Phenylephrine/Dm 5 - 10 ml PO QID PRN 11/14/23 11/14/23 History [Dimetapp Cold-Cough Liquid] Clopidogrel [Plavix] 75 mg PO DIRECTED 11/14/23 11/14/23 History Colchicine 0.6 mg PO DAILY 11/14/23 11/14/23 History Furosemide [Lasix] 40 mg PO DAILY 11/14/23 11/14/23 History Insulin Glargine,Hum.rec.anlog 10 - 20 units SQ DAILY PRN 11/14/23 11/14/23 History [Lantus Solostar Pen] Metoprolol Succinate (ER) [Toprol 50 mg PO DAILY 11/14/23 11/14/23 History Xl] Omeprazole 20 mg PO DAILY 11/14/23 11/14/23 History allopurinoL [Zyloprim] 300 mg PO DAILY 11/14/23 11/14/23 History lisinopriL [Zestril] 5 mg PO DAILY 11/14/23 11/14/23 History Allergies Allergy/AdvReac Type Severity Reaction Status Date / Time ampicillin [From Unasyn] AdvReac Severe Nausea & Verified 11/14/23 22:28 Vomiting sulbactam [From Unasyn] AdvReac Severe Nausea & Verified 11/14/23 22:28 Vomiting acetaminophen [From [place]] AdvReac Intermediate Nausea & Verified 11/14/23 22:28 Vomiting hydrocodone [From [place]] AdvReac Intermediate Nausea & Verified 11/14/23 22:28 Vomiting codeine AdvReac Nausea & Verified 11/14/23 22:28 [From Tylenol-Codeine #3] Vomiting morphine AdvReac nausea, Verified 11/14/23 22:28 vomiting, and confusion Physical Exam Vitals: Vital Signs Temp Pulse Pulse Resp BP BP Pulse Ox 11/15/23 07:23 98.4 F 92 19 110/63 96 11/15/23 01:29 86 18 97/50 98 11/15/23 00:35 97.8 F 90 18 95/56 100 11/14/23 23:29 98.8 F 90 18 95/58 95 11/14/23 22:10 91 16 108/65 93 L 11/14/23 21:00 101 H 18 99/49 91 L 11/14/23 19:54 99.2 F 105 H 20 111/68 95 Intake and Output 11/14/23 11/15/23 11/15/23 22:59 06:59 14:59 Other: # Voids 2 # Bowel Movements 1 Weight 60.328 kg 60.328 kg GENERAL EXAM: Alert, 73-year-old white female, well-nourished, comfortable in no apparent distress. HEAD: Normocephalic and atraumatic EYES: Normal reaction of pupils, equal size. NOSE: Clear with pink turbinates. THROAT: No erythema or exudates. NECK: No masses, no JVD. CHEST: No chest wall deformity. LUNGS: Equal air entry with scattered rhonchi. No significant wheezing, crackles, dullness. On room air. No conversational dyspnea or accessory muscle use. She does have persistent cough. CVS: S1 and S2 normal with harsh systolic murmur, regular rhythm. No extra heart sounds ABDOMEN: No hepatosplenomegaly, active bowel sounds, no guarding or rigidity. SPINE: No scoliosis or deformity SKIN: No rashes CENTRAL NERVOUS SYSTEM: No focal deficits, tone is normal in all 4 extremities. EXTREMITIES: There is no peripheral edema, clubbing, or cyanosis. Peripheral pulses are intact. Results - Laboratory Findings CBC and BMP: 11/14/23 20:18 11/14/23 20:18 PT/INR, D-dimer PT 11.6 sec (10.0-12.5) 11/14/23 20:18 INR 1.1 (<1.2) 11/14/23 20:18 Abnormal lab findings: Abnormal Labs 11/14/23 11/14/23 11/14/23 20:18 20:18 20:18 RBC 3.67 L RDW 16.7 H BUN 48 H Creatinine 1.77 H Glucose 122 H Magnesium 1.5 L AST 37 H SARS-CoV-2 (PCR) Detected A - Diagnostic Findings Chest x-ray: image reviewed Assessment and Plan Plan: Acute dyspnea, secondary to acute COVID infection. Chest x-ray shows no acute infiltrates or evidence of COVID-pneumonia. Furthermore, there is no significant hypoxemia and the patient's pulse ox is 96% on room air oxygen. She has taken Moderna vaccination at the time of the original pandemic. No booster shots since then and the patient denies having any prior infection with COVID- 19. Squamous cell lung carcinoma, involving the right upper lobe and right paratracheal lymph node, diagnosed on 09/19/2023 with robotic Ion bronchoscopy and EBUS. Has not started treatment yet. Chronic obstructive pulmonary disease, baseline FEV1 is in the order of 59% of predicted Acute on chronic kidney disease, possibly secondary to dehydration and reduced oral intake Remote history of metastatic breast cancer, status post stem cell transplant and follow-up chemotherapy, she is BRCA2 positive and has had bilateral mastectomy History of non-Hodgkin's lymphoma, discovered as lung nodule of the left upper lobe and underwent wedge resection at outside facility Coronary artery disease, with previous history of CABG Severe ischemic cardiomyopathy, with a baseline ejection fraction of 20 to 35%, status post AICD/pacemaker History of hypertension History of hyperlipidemia Never smoker Plan Treatment will be essentially supportive therapy, currently on room air oxygen. She may have a component of COPD exacerbation based on that she will be given a prednisone burst taper starting with 40 mg Albuterol HFA IV hydration Resume home medications Check procalcitonin level Check LDH and CRP Oncology consult has been already initiated regarding her recent diagnosis squamous of carcinoma of the lung Will continue to follow
[2023-11-15] MEDS: predniSONE 20 MG TAB PO SCH (14:12)
[2023-11-15 14:18] LABS: C Reactive Protein 5.2 mg/dL (<1.0)
[2023-11-15 17:03] LABS: Glucose,Whole Blood 144 mg/dL (70-110)
[2023-11-15 20:14] LABS: Glucose,Whole Blood 216 mg/dL (70-110)
[2023-11-15] MEDS: GABAPENTIN 300 MG CAP PO SCH (20:25)
[2023-11-16 05:36] LABS: Glucose,Whole Blood 155 mg/dL (70-110)
[2023-11-16] MEDS: LEVOTHYROXINE 50 MCG TAB PO SCH (05:55)
[2023-11-16 07:53] VITALS: BP 124/74; PULSE 104; RESP 19; TEMP 98
--- NOTE | 2023-11-16 08:55 | P.CONS ---
History of Present Illness - Reason for Consult Consult date: 11/15/23 COVID Requesting physician: Stanley Lundberg - Chief Complaint Weakness and shortness of breath x few days - History of Present Illness Patient is a 73-year-old female with a past medical history significant for diabetes mellitus hypertension reflux pneumonia asthma coronary artery disease presenting to the hospital for evaluation of generalized weakness patient recently came from [place] as symptoms started over the last few days has been complaining of feeling so weak that she was currently able to stand patient denies significant URI symptoms he did have a cough mild to moderate intensity did not bring up any sputum and also shortness of breath denies having any nausea no vomiting no abdominal pain or diarrhea on presentation to the hospital patient did have a low-grade fever of 99.2 F patient was nontachycardic hypertensive or hypoxic and no need for supplemental oxygen patient did have a white count of 9.6 BUN/creatinine has been mildly elevated AST was mildly elevated patient tested positive for COVID-19 influenza and RSV was negative blood cultures are pending patient did have a chest x-ray no definite acute radiographic process infectious he was consulted for further management Review of Systems Positive point and negatives has been mentioned in the HPI, complete review of systems was performed and all other systems are negative Past Medical History Past Medical History: Asthma, Coronary Artery Disease (CAD), Cancer, Diabetes Mellitus, GERD/Reflux, Hypertension, Myocardial Infarction ([place]), Pneumonia, Thyroid Disorder Additional Past Medical History / Comment(s): NSTEMI in September 2016 with subsequent coronary artery bypass grafting x 1, BRAR to the LAD, in October 2016. Severe ischemic cardiomyopathy with estimated ejection fraction 25-30%. Pending AICD placement. Admitted for hypotension in 11-13-16. Remote history of left Breast cancer stage 4(1994) had mastectomy and radiation/chemo,had genetic testing done,was poisitve for BRCA 2 gene mutation, so had elective right mastectomy done. Left upper lobe lung nodule positive for B-lymphoma was biopsied at [facility], and left upper lobe was resected by Dr. Salgado. She received 4 chemo tx, pne/sepsis Last Myocardial Infarction Date:: History of Any Multi-Drug Resistant Organisms: C-DIFF Year Discovered:: 10/2016 MDRO Source:: stool Past Surgical History: Appendectomy, Breast Surgery, Cholecystectomy, Coronary Bypass/CABG, Heart Catheterization, Hysterectomy, Pacemaker, Tubal Ligation Additional Past Surgical History / Comment(s): LT BREAST WAS POSTIVE FOR CANCER STAGE 4 cancer-had masectomy. 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 PT TESTED POSITIVE FOR BRCA 2 GENE.then 8 YEARS AGO HAD RT BREAST REMOVED (prophylactically). lt cataract removed, 10-07-16 CABG( 1 VESSEL), LT INTERNAL MAMMARY ARTERY TO LEFT ANT DESCENDING ARTERY. EVAN OOPHERECTOMY(PROPHYLATIC), LUNG NODULE REMOVED(CANCEROUS-lymhoma- AND RECEIVED SEVERAL CHEMO tx, several venous access devices since removed. Past Anesthesia/Blood Transfusion Reactions: No Reported Reaction Additional Past Anesthesia/Blood Transfusion Reaction / Comm: takes a bit to wake up after Type of Cardiac Device: Unknown Device Placement Date:: UNK Past Psychological History: No Psychological Hx Reported Smoking Status: Never smoker Past Alcohol Use History: None Reported Past Drug Use History: None Reported - Past Family History Mother Family Medical History: Diabetes Mellitus Additional Family Medical History / Comment(s): heart valve replacment Father Family Medical History: Cancer Additional Family Medical History / Comment(s): lung cancer Sister(s) Family Medical History: Cancer Additional Family Medical History / Comment(s): breast cancer Medications and Allergies Home Medications Medication Instructions Recorded Confirmed Type Digoxin [Lanoxin] 125 mcg PO DAILY tab 01/01/17 11/14/23 Rx Spironolactone [Aldactone] 25 mg PO DAILY 08/04/17 11/14/23 History Atorvastatin [Lipitor] 40 mg PO DAILY 01/01/18 11/14/23 History Levothyroxine Sodium [Synthroid] 50 mcg PO DAILY 01/01/18 11/14/23 History metFORMIN HCL [Glucophage] 500 mg PO BID 05/09/19 11/14/23 History Gabapentin [Neurontin] 300 mg PO BID 09/17/23 11/14/23 History Acetaminophen/Diphenhydramine 2 tab PO HS 11/14/23 11/14/23 History [Tylenol PM 500-25mg] Albuterol Inhaler [Ventolin Hfa 1 - 2 puff INHALATION RT-Q6H PRN 11/14/23 11/14/23 History Inhaler] Brompheniram/Phenylephrine/Dm 5 - 10 ml PO QID PRN 11/14/23 11/14/23 History [Dimetapp Cold-Cough Liquid] Clopidogrel [Plavix] 75 mg PO DIRECTED 11/14/23 11/14/23 History Colchicine 0.6 mg PO DAILY 11/14/23 11/14/23 History Furosemide [Lasix] 40 mg PO DAILY 11/14/23 11/14/23 History Insulin Glargine,Hum.rec.anlog 10 - 20 units SQ DAILY PRN 11/14/23 11/14/23 H istory [Lantus Solostar Pen] Metoprolol Succinate (ER) [Toprol 50 mg PO DAILY 11/14/23 11/14/23 History XL] Omeprazole 20 mg PO DAILY 11/14/23 11/14/23 History allopurinoL [Zyloprim] 300 mg PO DAILY 11/14/23 11/14/23 History lisinopriL [Zestril] 5 mg PO DAILY 11/14/23 11/14/23 History predniSONE 10 mg PO DAILY 8 Days #20 tab 11/16/23 Rx Allergies Allergy/AdvReac Type Severity Reaction Status Date / Time ampicillin [From Unasyn] AdvReac Severe Nausea & Verified 11/14/23 22:28 Vomiting sulbactam [From Unasyn] AdvReac Severe Nausea & Verified 11/14/23 22:28 Vomiting acetaminophen [From [place]] AdvReac Intermediate Nausea & Verified 11/14/23 22:28 Vomiting hydrocodone [From [place]] AdvReac Intermediate Nausea & Verified 11/14/23 22:28 Vomiting codeine AdvReac Nausea & Verified 11/14/23 22:28 [From Tylenol-Codeine #3] Vomiting morphine AdvReac nausea, Verified 11/14/23 22:28 vomiting, and confusion Physical Exam Vitals: Vital Signs Temp Pulse Pulse Resp BP BP Pulse Ox 11/15/23 07:23 98.4 F 92 19 110/63 96 11/15/23 01:29 86 18 97/50 98 11/15/23 00:35 97.8 F 90 18 95/56 100 11/14/23 23:29 98.8 F 90 18 95/58 95 11/14/23 22:10 91 16 108/65 93 L 11/14/23 21:00 101 H 18 99/49 91 L 11/14/23 19:54 99.2 F 105 H 20 111/68 95 Intake and Output 02/05/3011/15/23 11/15/23 22:59 06:59 14:59 Other: # Voids 2 # Bowel Movements 1 Weight 60.328 kg 60.328 kg GENERAL DESCRIPTION: Elderly female lying in bed, no distress. No tachypnea or accessory muscle of respiration use. HEENT: Shows Pallor , no scleral icterus. Oral mucous membrane is dry. No pharyngeal erythema or thrush NECK: Trachea central, no thyromegaly. LUNGS: Unlabored breathing. Bilateral expiratory wheezes HEART: S1, S2, regular rate and rhythm. No loud murmur ABDOMEN: Soft, no tenderness , EXTREMITIES: No edema of feet. SKIN: No rash, no masses palpable. NEUROLOGICAL: The patient is awake, alert, oriented x3, mood and affect normal. Results CBC & Chem 7: 11/14/23 20:18 11/14/23 20:18 Labs: Abnormal Lab Results - Last 24 Hours (Table) 11/14/23 11/14/23 11/14/23 Range/Units 20:18 20:18 20:18 RBC 3.67 L (3.80-5.40) m/uL RDW 16.7 H (11.5-15.5) % BUN 48 H (7-17) mg/dL Creatinine 1.77 H (0.52-1.04) mg/dL Glucose 122 H (74-99) mg/dL Magnesium 1.5 L (1.6-2.3) mg/dL AST 37 H (14-36) U/L SARS-CoV-2 (PCR) Detected A (Not Detectd) Assessment and Plan (1) COVID-19 Status: Acute Code(s): U07.1 - COVID-19 SNOMED Code(s): 777954935 Plan: 1patient presented to hospital with generalized weakness fatigue shortness of breath and cough has been diagnosed with a COVID-19 infection however the patient is not hypoxic chest x-ray was negative for any acute cardiopulmonary disease treatment will be mostly supportive and no clinic suspicious for secondary bacterial infection 2-penicillin allergy limiting number of antibiotics safe to use 3Patient to continue with the current supportive treatment of Lovenox did have some wheezing started on prednisone add zinc and ascorbic acid We will follow on clinical condition and cultures to further adjust medication if needed Thank you for this consultation we will follow the patient along with you Dictation was produced using [employer] software. please excuse any grammatical, word or spelling errors. Time with Patient: Greater than 30
[2023-11-16] MEDS ORDERED: NON FORMULARY DRUG (Omeprazole [Omeprazole] 20 MG Capsule.Dr) PO SCH (09:00)
[2023-11-16] MEDS: ASCORBIC ACID 500 MG TAB PO SCH (10:18)
[2023-11-16] MEDS: METOPROLOL SUCCINATE (ER) 50 MG TAB.ER.24H PO SCH (10:18)
[2023-11-16] MEDS: ATORVASTATIN 40 MG TAB PO SCH (10:18)
[2023-11-16] MEDS: ENOXAPARIN 30 MG/0.3 ML SYRINGE SQ SCH (10:19)
[2023-11-16] MEDS: ZINC SULFATE 220 MG CAP PO SCH (10:19)
[2023-11-16 11:26] LABS: Glucose,Whole Blood 179 mg/dL (70-110)
--- NOTE | 2023-11-16 11:36 | P.PN ---
Subjective Progress Note Date: 11/16/23 This is a 73-year-old female patient was hospitalized for worsening shortness of breath. The patient is known to have COPD and squamous cell carcinoma of the lung and the patient has a recent diagnosis of lung cancer diagnosed on 09/19/2023 and I performed a robotic bronchoscopy on the patient for a right perihilar mass which extended superiorly and the bronchoscopy revealed squamous cell carcinoma of the lung. Note that the patient also has a remote history of metastatic breast cancer and she carries the BRCA gene mutation and she has undergone bilateral mastectomy and she has undergone a previous bone marrow transplantation for history of large B-cell lymphoma, coronary artery disease, ischemic cardiomyopathy with an EF around 25 to 30% and previous AICD placement. The patient has an FEV1 of 59% of predicted consistent with moderate severe COPD. The patient passed presented to the emergency department with worsening shortness of breath. She started with having cold symptoms and subsequently started having increased cough and congestion and yellowish sputum production. Denies having any fever. She tested positive for COVID-19. She has taken her original Moderna vaccination. No booster shots. No previous history of COVID- 19 infection. The chest x-ray did not show any acute pulmonary infiltrates. The patient's pulse ox currently is 96% on room air oxygen. She was started on IV fluids. Electrolytes are stable. Creatinine was 1.7 with a BUN of 48. The patient was started on home Synthroid 136. Lactic acid is at 1.5. Normal coagulation profile. LFTs are normal. TSH is at 1.8. On today's evaluation of 11/16/2023, seen the patient for a follow-up. The patient on room air oxygen. Denies having any respiratory distress. No cough or sputum production or chest tightness and wheezing and the patient is currently completing a prednisone burst taper regarding a mild COPD exacerbation that was induced by COVID-19 infection. She also has a recent diagnosis of a squamous cell carcinoma to be followed up byOncology. The patient CRP level was 5.2 with an LDH of 243 and a D-dimer is at 0.58. Objective - Vital Signs Vital signs: Vital Signs Temp 98.0 F 11/16/23 07:31 Pulse 104 H 11/16/23 07:31 Resp 19 11/16/23 07:31 BP 124/74 02/10/24 07:31 Pulse Ox 99 11/16/23 07:31 FiO2 Intake & Output 11/15/23 11/16/23 11/16/23 18:59 06:59 18:59 Intake Total 480 Balance 480 Intake: Oral 480 Other: # Voids 2 2 # Bowel Movements 0 - Exam GENERAL EXAM: Alert, 73-year-old white female, well-nourished, comfortable in no apparent distress. HEAD: Normocephalic and atraumatic EYES: Normal reaction of pupils, equal size. NOSE: Clear with pink turbinates. THROAT: No erythema or exudates. NECK: No masses, no JVD. CHEST: No chest wall deformity. LUNGS: Equal air entry with scattered rhonchi. No significant wheezing, crackles, dullness. On room air. No conversational dyspnea or accessory muscle use. She does have persistent cough. CVS: S1 and S2 normal with harsh systolic murmur, regular rhythm. No extra heart sounds ABDOMEN: No hepatosplenomegaly, active bowel sounds, no guarding or rigidity. SPINE: No scoliosis or deformity SKIN: No rashes CENTRAL NERVOUS SYSTEM: No focal deficits, tone is normal in all 4 extremities. EXTREMITIES: There is no peripheral edema, clubbing, or cyanosis. Peripheral pulses are intact. - Labs CBC & Chem 7: 11/14/23 20:18 11/14/23 20:18 Labs: Abnormal Lab Results - Last 24 Hours (Table) 11/15/23 11/15/23 11/15/23 Range/Units 13:35 17:02 20:12 POC Glucose (mg/dL) 144 H 216 H (70-110) mg/dL C-Reactive Protein 5.2 H (<1.0) mg/dL 11/16/23 Range/Units 05:33 POC Glucose (mg/dL) 155 H (70-110) mg/dL C-Reactive Protein (<1.0) mg/dL Microbiology - Last 24 Hours (Table) 11/14/23 20:18 Blood Culture - Preliminary Blood 11/14/23 20:18 Blood Culture - Preliminary Blood Assessment and Plan Plan: Acute dyspnea, secondary to acute COVID infection. Chest x-ray shows no acute infiltrates or evidence of COVID-pneumonia. Furthermore, there is no significant hypoxemia and the patient's pulse ox is 96% on room air oxygen. She has taken Moderna vaccination at the time of the original pandemic. No booster shots since then and the patient denies having any prior infection with COVID- 19. Squamous cell lung carcinoma, involving the right upper lobe and right paratracheal lymph node, diagnosed on 09/19/2023 with robotic Ion bronchoscopy and EBUS. Has not started treatment yet. Chronic obstructive pulmonary disease, baseline FEV1 is in the order of 59% of predicted Acute on chronic kidney disease, possibly secondary to dehydration and reduced oral intake Remote history of metastatic breast cancer, status post stem cell transplant and follow-up chemotherapy, she is BRCA2 positive and has had bilateral mastectomy History of non-Hodgkin's lymphoma, discovered as lung nodule of the left upper lobe and underwent wedge resection at outside facility Coronary artery disease, with previous history of CABG Severe ischemic cardiomyopathy, with a baseline ejection fraction of 20 to 35%, status post AICD/pacemaker History of hypertension History of hyperlipidemia Never smoker Plan Inflammatory markers are low including D-dimer CRP and LDH Complete the course of prednisone burst taper regarding a mild COPD exacerbation Outpatient management regarding the recent diagnosis of squamous cell lung cancer Patient is on room air oxygen Will continue to follow
--- NOTE | 2023-11-16 12:35 | P.DS ---
Providers Date of admission: 11/14/23 23:35 Expected date of discharge: 11/16/23 Attending physician: Lito Oates Consults: 11/15/23 00:33 Consult Physician Urgent Consulting Provider: Tamika Arechiga Consult Reason/Comments: covid Do you want consulting provider notified?: Yes, Notify in am 11/15/23 09:47 Consult Physician Routine Consulting Provider: Marilee Galvez Consult Reason/Comments: COVID Do you want consulting provider notified?: Yes 11/16/23 10:40 Consult Physician Routine Consulting Provider: Yinka Orlando Consult Reason/Comments: Lung cancer, was supposed to start treatment Do you want consulting provider notified?: Yes Primary care physician: Tamika Arechiga [facility] Course: Discharge diagnoses; COVID-19 Squamous cell lung carcinoma Chronic obstructive pulmonary disease Acute on chronic kidney disease Hypomagnesemia Remote history of metastatic breast cancer, status post stem cell transplant and follow-up chemotherapy, she is BRCA2 positive and has had bilateral mastectomy History of non-Hodgkin's lymphoma Coronary artery disease, with previous history of CABG Severe ischemic cardiomyopathy, with a baseline ejection fraction of 20 to 35%, status post AICD/pacemaker History of hypertension History of hyperlipidemia Hospital course; Patient is a 73-year-old lady with past medical history significant for recent diagnosis of squamous cell lung carcinoma, remote metastatic breast cancer with BRCA a 2 gene mutation status post bilateral mastectomy and bone marrow transplantation followed by chemotherapy, non-Hodgkin's lymphoma with lung nodule and previous lung resection, coronary artery disease, ischemic cardiomyopathy with an EF of 25 to 30% status post AICD/pacemaker implantation presented to the ER for generalized weakness. Patient stated that she currently resides in [place] and just came back to [place]. Patient was complaining of nasal stuffiness and generalized weakness. Patient was also complaining of cough and shortness of breath. There was no complaint of fever or chills. No complaint of recent sick contact. There was no complaint of chest pain. Denies any nausea, vomit abdominal pain. Because of generalized weakness, patient was worked up in the ER Initial lab work done in the ER showed WBC 9.6, hemoglobin 11.7, platelet count 191, sodium 139, potassium 4.8, BUN 40, creatinine 1.77, glucose 122, magnesium 1.5, AST 37, ALT 31, Influenza A not detected Influenza B not detected RSV not detected COVID-19 detected EKG done in the ER showed heart rate of , no ST segment elevation or depression seen, no T-wave inversions seen. Chest x-ray done in the ER no acute radiographic process Patient admitted to internal medicine service 11/16. Patient seen and examined. Patient feeling much better, wheezing has improved. Pulmonology recommends discharging patient on tapering dose of prednisone. PHYSICAL EXAMINATION: GENERAL: The patient is alert and oriented x3, not in any acute distress. Well developed, well nourished. HEENT: Pupils are round and equally reacting to light. EOMI. No scleral icterus. No conjunctival pallor. Normocephalic, atraumatic. No pharyngeal erythema. No thyromegaly. CARDIOVASCULAR: S1 and S2 present. No murmurs, rubs, or gallops. PULMONARY: Chest is clear to auscultation, no wheezing or crackles. ABDOMEN: Soft, nontender, nondistended, normoactive bowel sounds. No palpable o rganomegaly. MUSCULOSKELETAL: No joint swelling or deformity. EXTREMITIES: No cyanosis, clubbing, or pedal edema. NEUROLOGICAL: Gross neurological examination did not reveal any focal deficits. SKIN: No rashes. Dictation was produced using [employer] dictation software. please excuse any grammatical, word or spelling errors. Patient Condition at Discharge: Good Plan - Discharge Summary Discharge Rx Participant: No New Discharge Prescriptions: New predniSONE 10 mg PO DAILY 8 Days #20 tab Continue Digoxin [Lanoxin] 125 mcg PO DAILY tab Spironolactone [Aldactone] 25 mg PO DAILY Levothyroxine Sodium [Synthroid] 50 mcg PO DAILY Atorvastatin [Lipitor] 40 mg PO DAILY metFORMIN HCL [Glucophage] 500 mg PO BID Metoprolol Succinate (ER) [Toprol XL] 50 mg PO DAILY lisinopriL [Zestril] 5 mg PO DAILY Insulin Glargine,Hum.rec.anlog [Lantus Solostar Pen] 10 - 20 units SQ DAILY PRN PRN Reason: HIGH BLOOD SUGAR allopurinoL [Zyloprim] 300 mg PO DAILY Colchicine 0.6 mg PO DAILY Brompheniram/Phenylephrine/Dm [Dimetapp Cold-Cough Liquid] 5 - 10 ml PO QID PRN PRN Reason: Cough Albuterol Inhaler [Ventolin Hfa Inhaler] 1 - 2 puff INHALATION RT-Q6H PRN PRN Reason: Shortness Of Breath Acetaminophen/Diphenhydramine [Tylenol PM 500-25mg] 2 tab PO HS Gabapentin [Neurontin] 300 mg PO BID Omeprazole 20 mg PO DAILY Furosemide [Lasix] 40 mg PO DAILY Clopidogrel [Plavix] 75 mg PO DIRECTED Discharge Medication List Digoxin [Lanoxin] 125 mcg PO DAILY tab 01/01/17 [Rx] Spironolactone [Aldactone] 25 mg PO DAILY 08/04/17 [History] Atorvastatin [Lipitor] 40 mg PO DAILY 01/01/18 [History] Levothyroxine Sodium [Synthroid] 50 mcg PO DAILY 01/01/18 [History] metFORMIN HCL [Glucophage] 500 mg PO BID 05/09/19 [History] Gabapentin [Neurontin] 300 mg PO BID 09/17/23 [History] Acetaminophen/Diphenhydramine [Tylenol PM 500-25mg] 2 tab PO HS 11/14/23 [History] Albuterol Inhaler [Ventolin Hfa Inhaler] 1 - 2 puff INHALATION RT-Q6H PRN 11/14/23 [History] Brompheniram/Phenylephrine/Dm [Dimetapp Cold-Cough Liquid] 5 - 10 ml PO QID PRN 11/14/23 [History] Clopidogrel [Plavix] 75 mg PO DIRECTED 11/14/23 [History] Colchicine 0.6 mg PO DAILY 11/14/23 [History] Furosemide [Lasix] 40 mg PO DAILY 11/14/23 [History] Insulin Glargine,Hum.rec.anlog [Lantus Solostar Pen] 10 - 20 units SQ DAILY PRN 11/14/23 [History] Metoprolol Succinate (ER) [Toprol XL] 50 mg PO DAILY 11/14/23 [History] Omeprazole 20 mg PO DAILY 11/14/23 [History] allopurinoL [Zyloprim] 300 mg PO DAILY 11/14/23 [History] lisinopriL [Zestril] 5 mg PO DAILY 11/14/23 [History] predniSONE 10 mg PO DAILY 8 Days #20 tab 11/16/23 [Rx] Follow up Appointment(s)/Referral(s): Tamika Arechiga MD [Primary Care Provider] - 1-2 days Discharge Disposition: HOME SELF-CARE
--- NOTE | 2023-11-16 13:33 | P.PN ---
Subjective Progress Note Date: 11/16/23 Principal diagnosis: Reason for follow-up is COVID-19 Patient is a 73-year-old female with a past medical history significant for diabetes mellitus hypertension reflux pneumonia asthma coronary artery disease presenting to the hospital for evaluation of generalized weak ness, patient tested positive for COVID-19 however chest x-ray was negative for acute infiltrate and the patient was not hypoxic. On today's evaluation that is 11/16/2023, the patient denies any fever or any chills, patient is breathing comfortably on room air, the patient denies chest pain shortness of breath and denies any worsening cough or sputum production, patient denies abdominal pain, no nausea vomiting or diarrhea. Feeling slightly better No new labs has been obtained today blood cultures pending Objective - Vital Signs Vital signs: Vital Signs Temp 98.0 F 11/16/23 07:31 Pulse 104 H 11/16/23 08:15 Resp 19 11/16/23 07:31 BP 124/74 11/16/23 07:31 Pulse Ox 99 11/16/23 07:31 FiO2 Intake & Output 11/15/23 11/16/23 11/16/23 18:59 06:59 18:59 Intake Total 480 Balance 480 Intake: Oral 480 Other: Voiding Method Toilet # Voids 2 2 # Bowel Movements 0 - Exam GENERAL DESCRIPTION: An elderly female up in the chair in no distress RESPIRATORY SYSTEM: Unlabored breathing , decreased breath sounds at bases HEART: S1 S2 regular rate and rhythm , ABDOMEN: Soft , no tenderness EXTREMITIES: No edema feet - Labs CBC & Chem 7: 11/14/23 20:18 11/14/23 20:18 Labs: Abnormal Lab Results - Last 24 Hours (Table) 11/15/23 11/15/23 11/15/23 Range/Units 13:35 17:02 20:12 POC Glucose (mg/dL) 144 H 216 H (70-110) mg/dL Hemoglobin A1c (<=6.0) % C-Reactive Protein 5.2 H (<1.0) mg/dL 11/16/23 11/16/23 11/16/23 Range/Units 05:33 05:57 11:24 POC Glucose (mg/dL) 155 H 179 H (70-110) mg/dL Hemoglobin A1c 7.0 H (<=6.0) % C-Reactive Protein (<1.0) mg/dL Microbiology - Last 24 Hours (Table) 11/14/23 20:18 Blood Culture - Preliminary Blood 11/14/23 20:18 Blood Culture - Preliminary Blood Assessment and Plan (1) COVID-19 Status: Acute Code(s): U07.1 - COVID-19 SNOMED Code(s): 567585653 Plan: 1patient presented to hospital with generalized weakness fatigue shortness of breath and cough has been diagnosed with a COVID-19 infection however the patient is not hypoxic chest x-ray was negative for any acute cardiopulmonary disease treatment will be mostly supportive and no clinic suspicious for secondary bacterial infection 2-patient did have clinical improvement and to continue with the current treat ment of Lovenox, prednisone zinc and ascorbic acid No need for remdesivir or antibiotics Dictation was produced using [employer] dictation software. please excuse any grammatical, word or spelling errors. Time with Patient: Less than 30
--- NOTE | 2023-11-16 14:46 | P.CONS ---
History of Present Illness - Reason for Consult Consult date: 11/16/23 Lung cancer - Chief Complaint Dyspnea - History of Present Illness Ms. 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 She had been in [place], where she had initially intended to receive treatment for her lung cancer, but had difficulty establishing care at [facility]. She was scheduled to receive cycle 1 of neoadjuvant carboplatin/paclitaxel/Keytruda on 11/19/2023 at our clinic because of this. Upon returning from [place], she had progressive cough and dyspnea. She had no accompanying fevers, but did note having rhinorrhea, and sore throat. Given her progressive dyspnea, she presented to the ED for further evaluation. She was initially placed on supplemental oxygen, but was weaned off of this and was saturating well on room air. She was otherwise hemodynamically stable. CBC revealed no cytopenias with CMP revealing stable CKD. She did test positive for COVID-19 with chest x-ray revealing no evidence of infiltrates or groundglass opacities. She was started on prednisone 40 mg daily. Since admission, she has been feeling great and close to her baseline. She denies any new signs or symptoms since admission. She is eager to begin her cancer treatment. Review of Systems 14 point review of systems was conducted with pertinent positives and negatives as noted per HPI Past Medical History Past Medical History: Asthma, Coronary Artery Disease (CAD), Cancer, Diabetes Mellitus, GERD/Reflux, Hypertension, Myocardial Infarction ([place]), Pneumonia, Thyroid Disorder Additional Past Medical History / Comment(s): NSTEMI in September 2016 with subsequent coronary artery bypass grafting x 1, BRAR to the LAD, in October 2016. Severe ischemic cardiomyopathy with estimated ejection fraction 25-30%. Pending AICD placement. Admitted for hypotension in 11-13-16. Remote history of left Breast cancer stage 4(1994) had mastectomy and radiation/chemo,had genetic testing done,was poisitve for BRCA 2 gene mutation, so had elective right mastectomy done. Left upper lobe lung nodule positive for B-lymphoma was biopsied at [facility], and left upper lobe was resected by Dr. Salgado. She received 4 chemo tx, pne/sepsis Last Myocardial Infarction Date:: History of Any Multi-Drug Resistant Organisms: C-DIFF Year Discovered:: 10/2016 MDRO Source:: stool Past Surgical History: Appendectomy, Breast Surgery, Cholecystectomy, Coronary Bypass/CABG, Heart Catheterization, Hysterectomy, Pacemaker, Tubal Ligation Additional Past Surgical History / Comment(s): LT BREAST WAS POSTIVE FOR CANCER STAGE 4 cancer-had masectomy. 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 PT TESTED POSITIVE FOR BRCA 2 GENE.then 8 YEARS AGO HAD RT BREAST REMOVED (prophylactically). lt cataract removed, 10-07-16 CABG( 1 VESSEL), LT INTERNAL MAMMARY ARTERY TO LEFT ANT DESCENDING ARTERY. EVAN OOPHERECTOMY(PROPHYLATIC), LUNG NODULE REMOVED(CANCEROUS-lymhoma- AND RECEIVED SEVERAL CHEMO tx, several venous access devices since removed. Past Anesthesia/Blood Transfusion Reactions: No Reported Reaction Additional Past Anesthesia/Blood Transfusion Reaction / Comm: takes a bit to wake up after Type of Cardiac Device: Unknown Device Placement Date:: UNK Past Psychological History: No Psychological Hx Reported Smoking Status: Never smoker Past Alcohol Use History: None Reported Past Drug Use History: None Reported - Past Family History Mother Family Medical History: Diabetes Mellitus Additional Family Medical History / Comment(s): heart valve replacment Father Family Medical History: Cancer Additional Family Medical History / Comment(s): lung cancer Sister(s) Family Medical History: Cancer Additional Family Medical History / Comment(s): breast cancer Medications and Allergies Home Medications Medication Instructions Recorded Confirmed Type Digoxin [Lanoxin] 125 mcg PO DAILY tab 01/01/17 11/14/23 Rx Spironolactone [Aldactone] 25 mg PO DAILY 08/04/17 11/14/23 History Atorvastatin [Lipitor] 40 mg PO DAILY 01/01/18 11/14/23 History Levothyroxine Sodium [Synthroid] 50 mcg PO DAILY 01/01/18 11/14/23 History metFORMIN HCL [Glucophage] 500 mg PO BID 05/09/19 11/14/23 History Gabapentin [Neurontin] 300 mg PO BID 09/17/23 11/14/23 History Acetaminophen/Diphenhydramine 2 tab PO HS 11/14/23 11/14/23 History [Tylenol PM 500-25mg] Albuterol Inhaler [Ventolin Hfa 1 - 2 puff INHALATION RT-Q6H PRN 11/14/23 11/14/23 History Inhaler] Brompheniram/Phenylephrine/Dm 5 - 10 ml PO QID PRN 11/14/23 11/14/23 History [Dimetapp Cold-Cough Liquid] Clopidogrel [Plavix] 75 mg PO DIRECTED 11/14/23 11/14/23 History Colchicine 0.6 mg PO DAILY 11/14/23 11/14/23 History Furosemide [Lasix] 40 mg PO DAILY 11/14/23 11/14/23 History Insulin Glargine,Hum.rec.anlog 10 - 20 units SQ DAILY PRN 11/14/23 11/14/23 History [Lantus Solostar Pen] Metoprolol Succinate (ER) [Toprol 50 mg PO DAILY 11/14/23 11/14/23 History XL] Omeprazole 20 mg PO DAILY 11/14/23 11/14/23 History allopurinoL [Zyloprim] 300 mg PO DAILY 11/14/23 11/14/23 History lisinopriL [Zestril] 5 mg PO DAILY 11/14/23 11/14/23 History predniSONE 10 mg PO DAILY 8 Days #20 tab 11/16/23 Rx Allergies Allergy/AdvReac Type Severity Reaction Status Date / Time ampicillin [From Unasyn] AdvReac Severe Nausea & Verified 11/14/23 22:28 Vomiting sulbactam [From Unasyn] AdvReac Severe Nausea & Verified 11/14/23 22:28 Vomiting acetaminophen [From [place]] AdvReac Intermediate Nausea & Verified 11/14/23 22:28 Vomiting hydrocodone [From [place]] AdvReac Intermediate Nausea & Verified 11/14/23 22:28 Vomiting codeine AdvReac Nausea & Verified 11/14/23 22:28 [From Tylenol-Codeine #3] Vomiting morphine AdvReac nausea, Verified 11/14/23 22:28 vomiting, and confusion Physical Exam Vitals: Vital Signs Temp Pulse Resp BP Pulse Ox 11/16/23 08:15 104 H 11/16/23 07:31 98.0 F 104 H 19 124/74 99 11/16/23 01:25 97.8 F 103 H 20 108/63 95 11/15/23 19:10 98.9 F 108 H 21 99/60 94 L Intake and Output 11/15/23 11/16/23 11/16/23 22:59 06:59 14:59 Intake Total 480 Balance 480 Intake: Oral 480 Other: Voiding Method Toilet # Voids 2 2 # Bowel Movements 0 - Constitutional General appearance: cooperative, no acute distress - EENT Eyes: EOMI - Respiratory Respiratory: right: wheezing - Cardiovascular Rhythm: regular - Gastrointestinal General gastrointestinal: no distended, soft - Integumentary Integumentary: no rash - Neurologic Neurologic: CNII-XII intact - Psychiatric Psychiatric: A&O x's 3, appropriate affect Results CBC & Chem 7: 11/14/23 20:18 11/14/23 20:18 Labs: Abnormal Lab Results - Last 24 Hours (Table) 11/15/23 11/15/23 11/16/23 Range/Units 17:02 20:12 05:33 POC Glucose (mg/dL) 144 H 216 H 155 H (70-110) mg/dL Hemoglobin A1c (<=6.0) % 11/16/23 11/16/23 Range/Units 05:57 11:24 POC Glucose (mg/dL) 179 H (70-110) mg/dL Hemoglobin A1c 7.0 H (<=6.0) % Microbiology - Last 24 Hours (Table) 11/14/23 20:18 Blood Culture - Preliminary Blood 11/14/23 20:18 Blood Culture - Preliminary Blood Assessment and Plan (1) Squamous cell carcinoma of lung, stage III Status: Acute Code(s): C34.90 - MALIGNANT NEOPLASM OF UNSP PART OF UNSP BRONCHUS OR LUNG SNOMED Code(s): 625961972 (2) COVID-19 Status: Acute Code(s): U07.1 - COVID-19 SNOMED Code(s): 451044729 Plan: #COVID-19 -Presented with progressive dyspnea with cough, wheezing, rhinorrhea, sore throat after returning from [place] by plane -There were no known sick contacts -Viral PCR on admission was positive for COVID-19 -Chest x-ray revealed no infiltrates or groundglass opacities and no persistent hypoxia -She was treated with oral prednisone as COPD exacerbation per pulmonology and had been clear for discharge -From an oncology perspective, she can also be discharged as long as she is cleared by other consulting specialties and primary team with treatment per pulmonology, appreciate their assistance #Stage IIIA non-small cell lung cancer -Diagnosed in late September 2023 with recommendation for neoadjuvant chemoimmunotherapy -[facility] at [facility] -She was found to be COVID-19 positive on 11/14/2023 with cycle 1 of carboplatin/paclitaxel/pembrolizumab scheduled for 11/19/2023 -We discussed current NCCN recommendations for delaying treatment for mild COVID-19 infection by 10 days from time of positive test and last fever -We will discuss her case with her primary oncologist Dr. Herberth Dowell to see when he would like to reschedule treatment -We will let her know when treatment will be rescheduled early next week Ariane Dowell MD
== END 2023-11-16 13:15 | disposition home or self-care (01) ==
LOC: EC 19:49 → 4SSUR 23:35
PROVIDERS: ADMIT Hospitalist; ATTEND Hospitalist
DX: U07.1 COVID-19 (principal); J44.1 Chronic obstructive pulmonary disease with (acute) exacerbation; C34.11 Malignant neoplasm of upper lobe, right bronchus or lung; C77.1 Secondary and unspecified malignant neoplasm of intrathoracic lymph nodes; E86.0 Dehydration; N17.9 Acute kidney failure, unspecified; E83.42 Hypomagnesemia; I12.9 Hypertensive chronic kidney disease with stage 1 through stage 4 chronic kidney disease, or unspecified chronic kidney disease; N18.9 Chronic kidney disease, unspecified; E11.22 Type 2 diabetes mellitus with diabetic chronic kidney disease; Z94.81 Bone marrow transplant status; Z15.01 Genetic susceptibility to malignant neoplasm of breast; Z85.3 Personal history of malignant neoplasm of breast; Z94.84 Stem cells transplant status; I25.5 Ischemic cardiomyopathy; I25.10 Atherosclerotic heart disease of native coronary artery without angina pectoris; J98.4 Other disorders of lung; E78.5 Hyperlipidemia, unspecified; I25.2 Old myocardial infarction; Z11.59 Encounter for screening for other viral diseases; Z79.84 Long term (current) use of oral hypoglycemic drugs; Z79.890 Hormone replacement therapy; Z79.02 Long term (current) use of antithrombotics/antiplatelets; Z79.899 Other long term (current) drug therapy; Z88.0 Allergy status to penicillin; Z88.5 Allergy status to narcotic agent; Z88.6 Allergy status to analgesic agent; Z90.2 Acquired absence of lung [part of]; Z85.72 Personal history of non-Hodgkin lymphomas; Z92.3 Personal history of irradiation; Z92.21 Personal history of antineoplastic chemotherapy; Z95.810 Presence of automatic (implantable) cardiac defibrillator; Z90.13 Acquired absence of bilateral breasts and nipples; Z95.1 Presence of aortocoronary bypass graft
CPT/HCPCS: 96361 ×2; 96372 ×2; 96365; 96366; 99285; 36415; 94640 ×3; 93005; 85379; 80053; 83605; 83615; 83735 ×2; 84100; 84443; 84484; 85025; 85610; 85730; 86140; 87040; 83036; 87636; 71046; G0378 ×2; J1650 ×2; J3475; J7512 ×2

== ENCOUNTER 2023-12-02 09:53 | Observation (INO) | payer MEDICARE, BC ==
--- NOTE | 2023-12-02 10:29 | ED ---
Weakness HPI - General Chief complaint: Weakness Stated complaint: Weakness Time Seen by Provider: 12/02/23 10:04 Source: patient, family, RN notes reviewed Mode of arrival: wheelchair Limitations: no limitations - History of Present Illness Initial comments: This is a 73 year old female who presents to the emergency department for weakness. Patient started chemotherapy for lung cancer 5 days ago, and since then has been very ill and weak. Reports nausea/vomiting and diarrhea. The diarrhea has been constant and she has not been able to keep anything down. She does have zofan for the nausea, however this has not been very effective and she states that she has no appetite. Denies any chest pain or shortness of breath. She has abdominal cramping from the diarrhea. Denies any fevers/chills. She is supposed to have the next round of chemotherapy in [address] Dowell advised she come to the emergency department for evaluation. MD Complaint: generalized weakness - Related Data Home Medications Medication Instructions Recorded Confirmed Spironolactone [Aldactone] 25 mg PO DAILY 08/04/17 12/02/23 Atorvastatin [Lipitor] 40 mg PO DAILY 01/01/18 12/02/23 Levothyroxine Sodium [Synthroid] 50 mcg PO DAILY 01/01/18 12/02/23 metFORMIN HCL [Glucophage] 500 mg PO BID 05/09/19 12/02/23 Gabapentin [Neurontin] 300 mg PO BID 09/17/23 12/02/23 Albuterol Inhaler [Ventolin Hfa 1 - 2 puff INHALATION RT-Q6H PRN 11/14/23 12/02/23 Inhaler] Clopidogrel [Plavix] 75 mg PO DAILY 11/14/23 12/02/23 Colchicine 0.6 mg PO DAILY 11/14/23 12/02/23 Furosemide [Lasix] 40 mg PO DAILY 11/14/23 12/02/23 Metoprolol Succinate (ER) [Toprol 50 mg PO DAILY 11/14/23 12/02/23 XL] Omeprazole 20 mg PO DAILY 11/14/23 12/02/23 allopurinoL [Zyloprim] 300 mg PO DAILY 11/14/23 12/02/23 lisinopriL [Zestril] 5 mg PO DAILY 11/14/23 12/02/23 Aspirin EC [Ecotrin Low Dose] 81 mg PO DAILY 12/02/23 12/02/23 Ondansetron [Zofran] 4 - 8 mg PO Q4HR PRN 12/02/23 12/02/23 Previous Rx's Medication Instructions Recorded Digoxin [Lanoxin] 125 mcg PO DAILY tab 01/01/17 Allergies Allergy/AdvReac Type Severity Reaction Status Date / Time ampicillin [From Unasyn] AdvReac Severe Nausea & Verified 12/02/23 12:23 Vomiting sulbactam [From Unasyn] AdvReac Severe Nausea & Verified 12/02/23 12:23 Vomiting acetaminophen [From [place]] AdvReac Intermediate Nausea & Verified 12/02/23 12:23 Vomiting hydrocodone [From [place]] AdvReac Intermediate Nausea & Verified 12/02/23 12:23 Vomiting codeine AdvReac Nausea & Verified 12/02/23 12:23 [From Tylenol-Codeine #3] Vomiting morphine AdvReac nausea, Verified 12/02/23 12:23 vomiting, and confusion Review of Systems ROS Statement: Those systems with pertinent positive or pertinent negative responses have been documented in the HPI. ROS Other: All systems not noted in ROS Statement are negative. Past Medical History Past Medical History: Asthma, Coronary Artery Disease (CAD), Cancer, Diabetes Mellitus, GERD/Reflux, Hypertension, Myocardial Infarction ([place]), Pneumonia, Thyroid Disorder Additional Past Medical History / Comment(s): NSTEMI in September 2016 with subsequent coronary artery bypass grafting x 1, BRAR to the LAD, in October 2016. Severe ischemic cardiomyopathy with estimated ejection fraction 25-30%. Pending AICD placement. Admitted for hypotension in 11-13-16. Remote history of left Breast cancer stage 4(1994) had mastectomy and radiation/chemo,had genetic testing done,was poisitve for BRCA 2 gene mutation, so had elective right mastectomy done. Left upper lobe lung nodule positive for B-lymphoma was biopsied at [facility], and left upper lobe was resected by Dr. Salgado. She received 4 chemo tx, pne/sepsis Last Myocardial Infarction Date:: History of Any Multi-Drug Resistant Organisms: C-DIFF Date of last positivie culture/infection: 10/2016 MDRO Source:: stool Past Surgical History: Appendectomy, Breast Surgery, Cholecystectomy, Coronary Bypass/CABG, Heart Catheterization, Hysterectomy, Pacemaker, Tubal Ligation Additional Past Surgical History / Comment(s): LT BREAST WAS POSTIVE FOR CANCER STAGE 4 cancer-had masectomy. 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 PT TESTED POSITIVE FOR BRCA 2 GENE.then 8 YEARS AGO HAD RT BREAST REMOVED (prophylactically). lt cataract removed, 10-07-16 CABG( 1 VESSEL), LT INTERNAL MAMMARY ARTERY TO LEFT ANT DESCENDING ARTERY. EVAN OOPHERECTOMY(PROPHYLATIC), LUNG NODULE REMOVED(CANCEROUS-lymhoma- AND RECEIVED SEVERAL CHEMO tx, several venous access devices since removed. Past Anesthesia/Blood Transfusion Reactions: No Reported Reaction Additional Past Anesthesia/Blood Transfusion Reaction / Comment(s): takes a bit to wake up after Type of Cardiac Device: Unknown Device Placement Date:: UNK Past Psychological History: No Psychological Hx Reported Smoking Status: Never smoker Past Alcohol Use History: None Reported Past Drug Use History: None Reported - Past Family History Mother Family Medical History: Diabetes Mellitus Additional Family Medical History / Comment(s): heart valve replacment Father Family Medical History: Cancer Additional Family Medical History / Comment(s): lung cancer Sister(s) Family Medical History: Cancer Additional Family Medical History / Comment(s): breast cancer General Exam Limitations: no limitations General appearance: alert, in no apparent distress Head exam: Present: atraumatic, normocephalic, normal inspection Respiratory exam: Present: normal lung sounds bilaterally. Absent: respiratory distress, wheezes, rales, rhonchi, stridor Cardiovascular Exam: Present: regular rate, normal rhythm, normal heart sounds. Absent: systolic murmur, diastolic murmur, rubs, gallop, clicks GI/Abdominal exam: Present: soft, normal bowel sounds. Absent: distended, tenderness, guarding, rebound, rigid Neurological exam: Present: alert, oriented X3, CN II-XII intact Psychiatric exam: Present: normal affect, normal mood Skin exam: Present: warm, dry, intact, normal color. Absent: rash Course Vital Signs 12/02/23 12/02/23 12/02/23 09:57 10:22 12:03 Temperature 98.4 F 98.1 F Pulse Rate 107 H 103 H 112 H Respiratory 18 18 18 Rate Blood Pressure 99/63 107/58 107/53 O2 Sat by Pulse 95 95 97 Oximetry 12/02/23 12/02/23 12/02/23 13:09 14:55 16:56 Temperature Pulse Rate 112 H 107 H 100 Respiratory 18 20 20 Rate Blood Pressure 106/63 126/58 122/61 O2 Sat by Pulse 96 96 96 Oximetry Medical Decision Making - Medical Decision Making This is a 73 year old female who presents to the emergency department for generalized weakness. Was pt. sent in by a medical professional or institution? @ -Dr. Dowell Did you speak to anyone other than the patient for history? @ -No Did you review nursing and triage notes? @ -Yes, and I agree, it is accurate with regards to the patient's symptoms. Were old charts reviewed? @ -No Differential Diagnosis? @ -Differential Weakness: Hypoglycemia, shock, sepsis, hyponatremia, anemia, infection, [place], ETOH, adverse medicine reaction, overdose, stroke, this is not meant to be an all-inclusive list. EKG interpreted by me (3pts min.)? @ -EKG interpreted by me demonstrating the following: Electronic ventricular pacemaker. Ventricular rate 105 BPM, MS interval 175 ms, QRS duration 104 ms, QTc 363 ms. X-rays interpreted by me (1pt min.)? @ -Not obtained CT interpreted by me (1pt min.)? @ -Not obtained U/S interpreted by me (1pt. min.)? @ -Not obtained What testing was considered but not performed? (CT, X-rays, U/S, labs)? Why? @ -None What meds were considered but not given? Why? @ -None Did you discuss the management of the patient with other professionals? @ -Yes, Dr. Lundberg, who accepts the patient for admission Did you reconcile home meds? @ -Yes Was smoking cessation discussed for >3mins.? @ -No Was critical care preformed (if so, how long)? @ -No Were there social determinants of health that impacted care today? How? (Homelessness, low income, unemployed, alcoholism, drug addiction, tra nsportation, low edu. Level, literacy, decrease access to med. care, retirement, rehab)? @ -No Was there de-escalation of care discussed even if they declined? (Discuss DNR or withdrawal of care, Hospice)? @ -No What co-morbidities impacted this encounter? (DM, HTN, Smoking, COPD, CAD, Cancer, CVA, Hep., AIDS, mental health diagnosis, sleep apnea, morbid obesity)? @ -Lung cancer, DM, HTN Was patient admitted / discharged? @ -Admitted. Lab work obtained demonstrating signs of dehydration. Kidney function is improved when compared with prior. She has mild hyperkalemia with a potassium of 5.2 and a mild elevation in liver enzymes. Magnesium also slightly low at 1.4. Patient given IV fluids, Zofran, Decadron, and 400 mg of magnesium oxide. Imodium administered for diarrhea. COVID-19 test did return positive, however this was positive on 11/14 and she is likely still positive from then. Patient states that she still feels very weak and is uncomfortable with the amount of diarrhea she is having. She does not feel comfortable going home because of this. Patient subsequently admitted to medicine for weakness, dehydration, and diarrhea. Consult placed for heme/onc. C. diff testing ordered with results pending at the time of admission. Undiagnosed new problem with uncertain prognosis? @ -None Drug Therapy requiring intensive monitoring for toxicity (Heparin, Nitro, Insulin, Cardizem)? @ -None Were any procedures done? @ -None Diagnosis/symptom? @ -Weakness, dehydration, diarrhea Acute, or Chronic, or Acute on Chronic? @ -Acute Uncomplicated (without systemic symptoms) or Complicated (systemic symptoms)? @ -Complicated Side effects of treatment? @ -None Exacerbation, Progression, or Severe Exacerbation] @ -Not applicable Poses a threat to life or bodily function? @ -Yes This case was discussed in detail with the attending ED physician, Dr. Rose. Presentation, findings, and treatment plan discussed in detail as well. - Lab Data Result diagrams: 12/02/23 10:39 12/02/23 10:39 Lab Results 12/02/23 12/02/23 12/02/23 Range/Units 10:39 10:39 10:39 WBC 6.1 (3.8-10.6) k/uL RBC 4.11 (3.80-5.40) m/uL Hgb 12.8 (11.4-16.0) gm/dL Hct 39.6 (34.0-46.0) % MCV 96.3 (80.0-100.0) fL MCH 31.1 (25.0-35.0) pg MCHC 32.3 (31.0-37.0) g/dL RDW 16.1 H (11.5-15.5) % Plt Count 139 L (150-450) k/uL MPV 8.4 Neutrophils % 78 % Lymphocytes % 17 % Monocytes % 2 % Eosinophils % 1 % Basophils % 0 % Neutrophils # 4.8 (1.3-7.7) k/uL Lymphocytes # 1.0 (1.0-4.8) k/uL Monocytes # 0.1 (0-1.0) k/uL Eosinophils # 0.1 (0-0.7) k/uL Basophils # 0.0 (0-0.2) k/uL Anisocytosis Slight PT 10.6 (10.0-12.5) sec INR 1.0 (<1.2) APTT 22.2 (22.0-30.0) sec Sodium (137-145) mmol/L Potassium (3.5-5.1) mmol/L Chloride (98-107) mmol/L Carbon Dioxide (22-30) mmol/L Anion Gap mmol/L BUN (7-17) mg/dL Creatinine (0.52-1.04) mg/dL Est GFR (CKD-EPI)AfAm (>60 ml/min/1.73 sqM) Est GFR (CKD-EPI)NonAf (>60 ml/min/1.73 sqM) Glucose (74-99) mg/dL Plasma Lactic Acid [place] (0.7-2.0) mmol/L Calcium (8.4-10.2) mg/dL Phosphorus (2.5-4.5) mg/dL Magnesium (1.6-2.3) mg/dL Total Bilirubin (0.2-1.3) mg/dL AST (14-36) U/L ALT (4-34) U/L Alkaline Phosphatase (38-126) U/L Total Protein (6.3-8.2) g/dL Albumin (3.5-5.0) g/dL Urine Color Colorless Urine Appearance Cloudy H (Clear) Urine pH 5.0 (5.0-8.0) Ur Specific [place] 1.015 (1.001-1.035) Urine Protein Negative (Negative) Urine Glucose (UA) 3+ H (Negative) Urine Ketones Negative (Negative) Urine Blood Negative (Negative) Urine Nitrite Negative (Negative) Urine Bilirubin Negative (Negative) Urine Urobilinogen <2.0 (<2.0) mg/dL Ur Leukocyte Esterase Small H (Negative) Urine RBC 2 (0-5) /hpf Urine WBC 6 H (0-5) /hpf Ur Squamous Epith Cells 11 H (0-4) /hpf Urine Bacteria Rare H (None) /hpf Urine Mucus Rare H (None) /hpf Influenza Type A (PCR) (Not Detectd) Influenza Type B (PCR) (Not Detectd) RSV (PCR) (Not Detectd) SARS-CoV-2 (PCR) (Not Detectd) 12/02/23 12/02/23 12/02/23 Range/Units 10:39 10:39 10:39 WBC (3.8-10.6) k/uL RBC (3.80-5.40) m/uL Hgb (11.4-16.0) gm/dL Hct (34.0-46.0) % MCV (80.0-100.0) fL MCH (25.0-35.0) pg MCHC (31.0-37.0) g/dL RDW (11.5-15.5) % Plt Count (150-450) k/uL MPV Neutrophils % % Lymphocytes % % Monocytes % % Eosinophils % % Basophils % % Neutrophils # (1.3-7.7) k/uL Lymphocytes # (1.0-4.8) k/uL Monocytes # (0-1.0) k/uL Eosinophils # (0-0.7) k/uL Basophils # (0-0.2) k/uL Anisocytosis PT (10.0-12.5) sec INR (<1.2) APTT (22.0-30.0) sec Sodium 133 L (137-145) mmol/L Potassium 5.2 H (3.5-5.1) mmol/L Chloride 102 (98-107) mmol/L Carbon Dioxide 23 (22-30) mmol/L Anion Gap 8 mmol/L BUN 48 H (7-17) mg/dL Creatinine 1.23 H (0.52-1.04) mg/dL Est GFR (CKD-EPI)AfAm 50 (>60 ml/min/1.73 sqM) Est GFR (CKD-EPI)NonAf 44 (>60 ml/min/1.73 sqM) Glucose 143 H (74-99) mg/dL Plasma Lactic Acid [place] 1.4 (0.7-2.0) mmol/L Calcium 9.3 (8.4-10.2) mg/dL Phosphorus 4.1 (2.5-4.5) mg/dL Magnesium 1.4 L (1.6-2.3) mg/dL Total Bilirubin 1.1 (0.2-1.3) mg/dL AST 97 H (14-36) U/L ALT 83 H (4-34) U/L Alkaline Phosphatase 130 H (38-126) U/L Total Protein 7.2 (6.3-8.2) g/dL Albumin 4.1 (3.5-5.0) g/dL Urine Color Urine Appearance (Clear) Urine pH (5.0-8.0) Ur Specific [place] (1.001-1.035) Urine Protein (Negative) Urine Glucose (UA) (Negative) Urine Ketones (Negative) Urine Blood (Negative) Urine Nitrite (Negative) Urine Bilirubin (Negative) Urine Urobilinogen (<2.0) mg/dL Ur Leukocyte Esterase (Negative) Urine RBC (0-5) /hpf Urine WBC (0-5) /hpf Ur Squamous Epith Cells (0-4) /hpf Urine Bacteria (None) /hpf Urine Mucus (None) /hpf Influenza Type A (PCR) Not Detected (Not Detectd) Influenza Type B (PCR) Not Detected (Not Detectd) RSV (PCR) Not Detected (Not Detectd) SARS-CoV-2 (PCR) Detected A (Not Detectd) Disposition Clinical Impression: Weakness, Diarrhea, Dehydration Disposition: [facility] Time of Disposition: 14:04
[2023-12-02] MEDS: SODIUM CHLORIDE 0.9% 1,000 ML IV STA (11:04)
[2023-12-02] MEDS: ONDANSETRON 4 MG/2 ML VIAL IVP STA (11:05)
[2023-12-02] MEDS: DEXAMETHASONE SOD PHOSPHATE 10 MG/ML 1 ML VIAL IVP STA (11:07)
[2023-12-02 11:09] LABS: Anisocytosis Slight; Basophils % (A) 0 %; Eosinophils # (A) 0.1 k/uL (0-0.7); Eosinophils % (A) 1 %; HCT 39.6 % (34.0-46.0); HGB 12.8 gm/dL (11.4-16.0); Lymphocytes % (A) 17 %; MCH 31.1 pg (25.0-35.0); MCHC 32.3 g/dL (31.0-37.0); MCV 96.3 fL (80.0-100.0); Mean Platelet Volume 8.4; Monocytes # (A) 0.1 k/uL (0-1.0); Monocytes % (A) 2 %; Neutrophils # (A) 4.8 k/uL (1.3-7.7); Neutrophils % (A) 78 %; Platelet Count 139 k/uL (150-450); RBC 4.11 m/uL (3.80-5.40); RDW 16.1 % (11.5-15.5); WBC 6.1 k/uL (3.8-10.6)
[2023-12-02 11:19] LABS: ALT 83 U/L (4-34); AST 97 U/L (14-36); African American GFR (CKD) 50 (>60 ml/min/1.73 sqM); Albumin 4.1 g/dL (3.5-5.0); Alkaline Phosphatase 130 U/L (38-126); Anion Gap 8 mmol/L; Blood Urea Nitrogen 48 mg/dL (7-17); Calcium 9.3 mg/dL (8.4-10.2); Carbon Dioxide 23 mmol/L (22-30); Chloride 102 mmol/L (98-107); Glucose 143 mg/dL (74-99); Magnesium 1.4 mg/dL (1.6-2.3); Non-African American GFR(CKD) 44 (>60 ml/min/1.73 sqM); Phosphorus 4.1 mg/dL (2.5-4.5); Potassium 5.2 mmol/L (3.5-5.1); Sodium 133 mmol/L (137-145); Total Bilirubin 1.1 mg/dL (0.2-1.3); Total Protein 7.2 g/dL (6.3-8.2)
[2023-12-02 11:21] LABS: Partial Thromboplastin Time 22.2 sec (22.0-30.0); Prothrombin Time 10.6 sec (10.0-12.5)
[2023-12-02] MEDS: LOPERAMIDE 2 MG CAP PO STA (12:04)
[2023-12-02] MEDS: MAGNESIUM OXIDE 400 MG TAB PO STA (12:37)
[2023-12-02 12:51] LABS: Appearance,Urine Cloudy (Clear); Bacteria,Urine Rare /hpf; Bilirubin,Urine Negative (Negative); Blood,Urine Negative (Negative); Color,Urine Colorless; Glucose,Urine (UA) 3+ (Negative); Ketones,Urine Negative (Negative); Leukocyte Esterase,Urine Small (Negative); Mucus,Urine Rare /hpf; Nitrite,Urine Negative (Negative); Protein,Urine Negative (Negative); RBC,Urine 2 /hpf (0-5); Specific Gravity,Urine 1.015 (1.001-1.035); Squamous Epithelial Cell,Urine 11 /hpf (0-4); Urobilinogen,Urine <2.0 mg/dL (<2.0); WBC,Urine 6 /hpf (0-5)
[2023-12-02] MEDS ORDERED: ALBUTEROL NEBULIZED 2.5 MG/3 ML INHALATION PRN (14:01)
[2023-12-02] MEDS ORDERED: ONDANSETRON 4 MG TAB PO PRN (14:01)
[2023-12-02] MEDS ORDERED: LOPERAMIDE 2 MG CAP PO PRN ×2 (14:04→14:13)
[2023-12-02] MEDS ORDERED: ONDANSETRON 4 MG/2 ML VIAL IVP PRN (14:24)
[2023-12-02] MEDS ORDERED: NALOXONE 0.4 MG/ML 1 ML VIAL IV PRN (14:25)
[2023-12-02] MEDS ORDERED: PROCHLORPERAZINE 5 MG TAB PO PRN (14:26)
[2023-12-02] MEDS ORDERED: DEXTROSE 50% SYRINGE 50 ML IVP PRN ×2 (14:34)
[2023-12-02] MEDS ORDERED: IOPAMIDOL CONTRAST (ORAL USE) VIAL PO PRN (14:35)
--- NOTE | 2023-12-02 14:39 | P.HPIM ---
History of Present Illness H&P Date: 12/02/23 Chief Complaint: weakness * 73-year-old patient with past medical history of squamous cell lung cancer, history of COPD, chronic kidney disease, history of metastatic breast cancer, s/p stem cell transplant, history of COVID-19, history of non-Hodgkin lymphoma, coronary artery disease, history of CABG, history of severe ischemic cardiomyopathy with ejection fraction of 35%, s/p ICD, hypertension, hyperlipidemia presents to the emergency department with complaints of weak ness, diarrhea. Patient was recently admitted and discharged on 11/16/2023 patient was admitted for shortness of breath patient was treated for COPD and COVID-19 and discharged home on oral prednisone. * Patient presents with progressive weakness patient stated she started chemotherapy for lung cancer 5 days ago and since then patient has been very ill and weak. She has been complaining of nausea, vomiting and diarrhea. Diarrhea has been constant and patient says she has not been able to keep a nything down. Patient states she has taken Zofran however that was not very effective. * Workup in ER included EKG which showed QTc of 363. No significant ST segment changes noted, baseline EKG changes noted from ICD device * Workup included CBC which showed WBC count of 6.1 hemoglobin 12.8 platelet count of 139. Serum chemistry showed sodium 133 potassium 5.2 carbon dioxide 23 BUN 48 creatinine 1.23 glucose 143 magnesium of 1.9 AST of 97 ALT 83 * Patient to be admitted to medical floor with consultation from physical therapy occupational therapy as well as fluid resuscitation REVIEW OF SYSTEMS: Nausea, vomiting, diarrhea, weakness CONSTITUTIONAL: No fever, no malaise, no fatigue. HEENT: No recent visual problems or hearing problems. Denied any sore throat. CARDIOVASCULAR: No chest pain, orthopnea, PND, no palpitations, no syncope. PULMONARY: No shortness of breath, no cough, no hemoptysis. GASTROINTESTINAL:Nausea, vomiting, diarrhea, weakness NEUROLOGICAL: No headaches, no weakness, no numbness. HEMATOLOGICAL: Denies any bleeding or petechiae. GENITOURINARY: Denies any burning micturition, frequency, or urgency. MUSCULOSKELETAL/RHEUMATOLOGICAL: Denies any joint pain, swelling, or any muscle pain. ENDOCRINE: Denies any polyuria or polydipsia. PHYSICAL EXAMINATION: GENERAL: The patient is alert and oriented x3, not in any acute distress. Chronic ill appearance HEENT: Pupils are round and equally reacting to light. EOMI. No scleral icterus. CARDIOVASCULAR: S1 and S2 present. No murmurs, rubs, or gallops. PULMONARY: Chest is clear to auscultation, no wheezing or crackles. ABDOMEN: Soft, mild tender on palpation no guarding or rigidity MUSCULOSKELETAL: No joint swelling or deformity. EXTREMITIES: No cyanosis, clubbing, or pedal edema. NEUROLOGICAL: Gross neurological examination did not reveal any focal deficits. SKIN: No rashes. Past Medical History Past Medical History: Asthma, Coronary Artery Disease (CAD), Cancer, Diabetes Mellitus, GERD/Reflux, Hypertension, Myocardial Infarction ([place]), Pneumonia, Thyroid Disorder Additional Past Medical History / Comment(s): NSTEMI in September 2016 with subsequent coronary artery bypass grafting x 1, BRAR to the LAD, in October 2016. Severe ischemic cardiomyopathy with estimated ejection fraction 25-30%. Pending AICD placement. Admitted for hypotension in 11-13-16. Remote history of left Breast cancer stage 4(1994) had mastectomy and radiation/chemo,had genetic testing done,was poisitve for BRCA 2 gene mutation, so had elective right mastectomy done. Left upper lobe lung nodule positive for B-lymphoma was biopsied at [facility], and left upper lobe was resected by Dr. Salgado. She received 4 chemo tx, pne/sepsis Last Myocardial Infarction Date:: History of Any Multi-Drug Resistant Organisms: C-DIFF Date of last positivie culture/infection: 10/2016 MDRO Source:: stool Past Surgical History: Appendectomy, Breast Surgery, Cholecystectomy, Coronary Bypass/CABG, Heart Catheterization, Hysterectomy, Pacemaker, Tubal Ligation Additional Past Surgical History / Comment(s): LT BREAST WAS POSTIVE FOR CANCER STAGE 4 cancer-had masectomy. 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 PT TESTED POSITIVE FOR BRCA 2 GENE.then 8 YEARS AGO HAD RT BREAST REMOVED (prophylactically). lt cataract removed, 10-07-16 CABG( 1 VESSEL), LT INTERNAL MAMMARY ARTERY TO LEFT ANT DESCENDING ARTERY. EVAN OOPHERECTOMY(PROPHYLATIC), LUNG NODULE REMOVED(CANCEROUS-lymhoma- AND RECEIVED SEVERAL CHEMO tx, several ve nous access devices since removed. Past Anesthesia/Blood Transfusion Reactions: No Reported Reaction Additional Past Anesthesia/Blood Transfusion Reaction / Comment(s): takes a bit to wake up after Type of Cardiac Device: Unknown Device Placement Date:: UNK Past Psychological History: No Psychological Hx Reported Smoking Status: Never smoker Past Alcohol Use History: None Reported Past Drug Use History: None Reported - Past Family History Mother Family Medical History: Diabetes Mellitus Additional Family Medical History / Comment(s): heart valve replacment Father Family Medical History: Cancer Additional Family Medical History / Comment(s): lung cancer Sister(s) Family Medical History: Cancer Additional Family Medical History / Comment(s): breast cancer Medications and Allergies Home Medications Medication Instructions Recorded Confirmed Type Digoxin [Lanoxin] 125 mcg PO DAILY tab 01/01/17 12/02/23 Rx Spironolactone [Aldactone] 25 mg PO DAILY 08/04/17 12/02/23 History Atorvastatin [Lipitor] 40 mg PO DAILY 01/01/18 12/02/23 History Levothyroxine Sodium [Synthroid] 50 mcg PO DAILY 01/01/18 12/02/23 History metFORMIN HCL [Glucophage] 500 mg PO BID 05/09/19 12/02/23 History Gabapentin [Neurontin] 300 mg PO BID 09/17/23 12/02/23 History Albuterol Inhaler [Ventolin Hfa 1 - 2 puff INHALATION RT-Q6H PRN 11/14/23 12/02/23 History Inhaler] Clopidogrel [Plavix] 75 mg PO DAILY 11/14/23 12/02/23 History Colchicine 0.6 mg PO DAILY 11/14/23 12/02/23 History Furosemide [Lasix] 40 mg PO DAILY 11/14/23 12/02/23 History Metoprolol Succinate (ER) [Toprol 50 mg PO DAILY 11/14/23 12/02/23 History XL] Omeprazole 20 mg PO DAILY 11/14/23 12/02/23 History allopurinoL [Zyloprim] 300 mg PO DAILY 11/14/23 12/02/23 History lisinopriL [Zestril] 5 mg PO DAILY 11/14/23 12/02/23 History Aspirin EC [Ecotrin Low Dose] 81 mg PO DAILY 12/02/23 12/02/23 History Ondansetron [Zofran] 4 - 8 mg PO Q4HR PRN 12/02/23 12/02/23 History Allergies Allergy/AdvReac Type Severity Reaction Status Date / Time ampicillin [From Unasyn] AdvReac Severe Nausea & Verified 12/02/23 12:23 Vomiting sulbactam [From Unasyn] AdvReac Severe Nausea & Verified 12/02/23 12:23 Vomiting acetaminophen [From [place]] AdvReac Intermediate Nausea & Verified 12/02/23 12:23 Vomiting hydrocodone [From [place]] AdvReac Intermediate Nausea & Verified 12/02/23 12:23 Vomiting codeine AdvReac Nausea & Verified 12/02/23 12:23 [From Tylenol-Codeine #3] Vomiting morphine AdvReac nausea, Verified 12/02/23 12:23 vomiting, and confusion Physical Exam Vitals: Vital Signs Temp Pulse Resp BP Pulse Ox 12/02/23 13:09 112 H 18 106/63 96 12/02/23 12:03 112 H 18 107/53 97 12/02/23 10:22 98.1 F 103 H 18 107/58 95 12/02/23 09:57 98.4 F 107 H 18 99/63 95 Intake and Output 12/01/23 12/02/23 12/02/23 22:59 06:59 14:59 Other: Weight 57.153 kg Results CBC & Chem 7: 12/02/23 10:39 12/02/23 10:39 Labs: Abnormal Lab Results - Last 24 Hours (Table) 12/02/23 12/02/23 12/02/23 Range/Units 10:39 10:39 10:39 RDW 16.1 H (11.5-15.5) % Plt Count 139 L (150-450) k/uL Sodium 133 L (137-145) mmol/L Potassium 5.2 H (3.5-5.1) mmol/L BUN 48 H (7-17) mg/dL Creatinine 1.23 H (0.52-1.04) mg/dL Glucose 143 H (74-99) mg/dL Magnesium 1.4 L (1.6-2.3) mg/dL AST 97 H (14-36) U/L ALT 83 H (4-34) U/L Alkaline Phosphatase 130 H (38-126) U/L Urine Appearance Cloudy H (Clear) Urine Glucose (UA) 3+ H (Negative) Ur Leukocyte Esterase Small H (Negative) Urine WBC 6 H (0-5) /hpf Ur Squamous Epith Cells 11 H (0-4) /hpf Urine Bacteria Rare H (None) /hpf Urine Mucus Rare H (None) /hpf SARS-CoV-2 (PCR) (Not Detectd) 12/02/23 Range/Units 10:39 RDW (11.5-15.5) % Plt Count (150-450) k/uL Sodium (137-145) mmol/L Potassium (3.5-5.1) mmol/L BUN (7-17) mg/dL Creatinine (0.52-1.04) mg/dL Glucose (74-99) mg/dL Magnesium (1.6-2.3) mg/dL AST (14-36) U/L ALT (4-34) U/L Alkaline Phosphatase (38-126) U/L Urine Appearance (Clear) Urine Glucose (UA) (Negative) Ur Leukocyte Esterase (Negative) Urine WBC (0-5) /hpf Ur Squamous Epith Cells (0-4) /hpf Urine Bacteria (None) /hpf Urine Mucus (None) /hpf SARS-CoV-2 (PCR) Detected A (Not Detectd) Assessment and Plan Assessment: Assessment and plan * Nausea, vomiting diarrhea postchemotherapy * squamous cell carcinoma of the lung receiving chemotherapy stage IIIa non- small cell lung cancer * COVID-19 viral infection sequel, tested to 05/30 * History of COPD * History of autologous stem cell transplant * History of diffuse large B-cell lymphoma * History of chronic kidney disease * Ischemic cardiomyopathy * History of coronary artery disease * Diabetes mellitus type 2 * In regards to postchemotherapy nausea, vomiting, as needed Zofran IV Zofran ordered, continue with fluid resuscitation, CT abdomen pelvis ordered * In regards to history of lung cancer oncology consulted * Regards to history of COPD, continue albuterol nebulization as needed, * In regards to cardiomyopathy, ICD in place continue digoxin, metoprolol, Aldactone * In regards to history of coronary artery disease with history of CABG continue medical management aspirin, Plavix, Lipitor * CODE STATUS is full code Time with Patient: Greater than 30
[2023-12-02] MEDS: SODIUM CHLORIDE 0.9% 1,000 ML IV SCH (14:46)
[2023-12-02] MEDS: MAGNESIUM SULFATE-D5W PMX 1 GM in DEXTROSE/WATER 1 100ML.BAG IVPB SCH (14:48)
[2023-12-02] MEDS: METOPROLOL SUCCINATE (ER) 50 MG TAB.ER.24H PO SCH (14:55)
[2023-12-02 16:58] LABS: Glucose,Whole Blood 180 mg/dL (70-110)
--- NOTE | 2023-12-02 17:03 | CT ---
EXAMINATION TYPE: CT abdomen pelvis wo con DATE OF EXAM: 12/02/2023 COMPARISON: PET CT 08/22/2023 HISTORY: 73-year-old female Abdominal pain, suspect colitis. CT DLP: 381.3 mGycm. Automated exposure control for dose reduction was used. TECHNIQUE: Contiguous axial scanning of the abdomen and pelvis without IV contrast. Coronal and sagit sophie reconstructions performed. FINDINGS: Cardiac pacer leads are noted. Median sternotomy wires. Cardiomegaly. Lung bases clear without pleural effusion. Noncontrast appearance of the liver, left adrenal gland, left kidney, spleen (with small anterior sp lenule), and pancreas show no gross abnormality. Subtle underlying nodularity of the right adrenal gland measuring 1.0 cm and 6 mm not clearly seen pr eviously. Moderate gastric fold thickening. No dilated small bowel, free fluid, or free air. No mesenteric or r etroperitoneal adenopathy. Some surgical material at the right lower quadrant may reflect prior appendectomy. There is prominent liquid stool seen throughout the colon with air-fluid levels. No abnormal colonic wall thickening is identified. No pericolonic inflammatory change. Bladder urine distended. Uterus is anteverted. Numerous pelvic phleboliths. Ovaries not clearly delin eated due to prominent bowel loops in the pelvis. Pelvic phleboliths. No abnormal fluid collection in the pelvis or pelvic lymphadenopathy. Bones: L1 vertebroplasty change. Minimal retropulsion ventral spinal canal. IMPRESSION: 1. Prominent liquid stool throughout the colon suggesting diarrheal state. No abnormal colonic wall thickening or pericolonic inflammation. 2. Subtle underlying nodularity of the right adrenal gland measuring 10 mm and 6 mm, not well seen o n prior 08/22/2023 PET/CT. Attention on routine oncologic follow-up to exclude early metastatic invol vement here. 3. Moderate gastric fold thickening may reflect gastritis.
[2023-12-02] MEDS: metFORMIN 500 MG TAB PO SCH (17:25)
[2023-12-02] MEDS: INSULIN ASPART (NovoLOG) 100 UNIT/ML VIAL SQ SCH (17:30)
[2023-12-02 20:33] LABS: Glucose,Whole Blood 228 mg/dL (70-110)
[2023-12-02] MEDS: GABAPENTIN 300 MG CAP PO SCH (20:38)
[2023-12-03] MEDS: LEVOTHYROXINE 50 MCG TAB PO SCH (05:48)
[2023-12-03] MEDS: PANTOPRAZOLE 40 MG TABLET PO SCH (07:38)
[2023-12-03 07:44] LABS: Glucose,Whole Blood 140 mg/dL (70-110)
[2023-12-03] MEDS: ASPIRIN 81 MG PO SCH (08:15)
[2023-12-03] MEDS: COLCHICINE 0.6 MG EACH PO SCH (08:15)
[2023-12-03] MEDS: DIGOXIN 125 MCG TAB PO SCH (08:16)
[2023-12-03] MEDS: ATORVASTATIN 40 MG TAB PO SCH (08:16)
[2023-12-03] MEDS: allopurinoL 300 MG TAB PO SCH (08:17)
[2023-12-03] MEDS: CLOPIDOGREL 75 MG TAB PO SCH (08:17)
[2023-12-03] MEDS: ENOXAPARIN 40 MG/0.4 ML SYRINGE SQ SCH (08:17)
[2023-12-03] MEDS: lisinopriL 5 MG TAB PO SCH (08:17)
[2023-12-03] MEDS: SPIRONOLACTONE 25 MG TAB PO SCH (08:17)
[2023-12-03] MEDS ORDERED: METOPROLOL SUCCINATE (ER) 50 MG TAB.ER.24H PO SCH (09:00)
[2023-12-03] MEDS ORDERED: FUROSEMIDE 40 MG TAB PO SCH (09:00)
[2023-12-03 11:09] LABS: HCT 34.2 % (37.2-46.3); HGB 11.1 g/dL (12.0-15.0); MCH 30.6 pg (27.0-32.0); MCHC 32.5 g/dL (32.0-37.0); MCV 94.2 FL (80.0-97.0); Mean Platelet Volume 11.5 FL (9.5-12.2); NRBC Per 100 WBC 0 X 10*3/uL (0.00-0.01); Platelet Count 144 X 10*3/uL (140-440); RBC 3.63 X 10*6/uL (4.10-5.20); RDW 15.9 % (11.5-14.5); WBC 5.92 X 10*3/uL (4.50-10.00)
[2023-12-03 11:33] LABS: BUN/Creat Ratio 35.08 Ratio (12.00-20.00); Blood Urea Nitrogen 42.1 mg/dL (9.0-27.0); Calcium 9.5 mg/dL (8.7-10.3); Carbon Dioxide 21.8 mmol/L (21.6-31.8); Chloride 102 mmol/L (96-109); Glucose 152 mg/dL (70-110); Potassium 5.7 mmol/L (3.5-5.5); Sodium 135 mmol/L (135-145)
[2023-12-03 11:34] LABS: Glucose,Whole Blood 118 mg/dL (70-110)
[2023-12-03] MEDS ORDERED: LOPERAMIDE 2 MG CAP PO PRN (12:27)
--- NOTE | 2023-12-03 12:27 | P.PN ---
Subjective Progress Note Date: 12/03/23 * 73-year-old patient with past medical history of squamous cell lung cancer, history of COPD, chronic kidney disease, history of metastatic breast cancer, s/p stem cell transplant, history of COVID-19, history of non-Hodgkin lymphoma, coronary artery disease, history of CABG, history of severe ischemic cardiomyopathy with ejection fraction of 35%, s/p ICD, hypertension, hyperlipidemia presents to the emergency department with complaints of weakness, diarrhea. Patient was recently admitted and discharged on 11/16/2023 patient was admitted for shortness of breath patient was treated for COPD and COVID-19 and discharged home on oral prednisone. * Patient presents with progressive weakness patient stated she started chemotherapy for lung cancer 5 days ago and since then patient has been very ill and weak. She has been complaining of nausea, vomiting and diarrhea. Diarrhea has been constant and patient says she has not been able to keep anything down. Patient states she has taken Zofran however that was not very effective. * Workup in ER included EKG which showed QTc of 363. No significant ST segment changes noted, baseline EKG changes noted from ICD device * Workup included CBC which showed WBC count of 6.1 hemoglobin 12.8 platelet count of 139. Serum chemistry showed sodium 133 potassium 5.2 carbon dioxide 23 BUN 48 creatinine 1.23 glucose 143 magnesium of 1.9 AST of 97 ALT 83 * Patient to be admitted to medical floor with consultation from physical therapy occupational therapy as well as fluid resuscitation * 12/03/23: patient seen and evaluated at bedside, patient resuscitated with fluid overnight, stool C diff negative, Lasix continue to remain on hold. Will continue to follow up on CBC and basic metabolic panel. Patient will need physical therapy occupational therapy evaluation. Patient Oncology team consulted as well waiting evaluation. CT abdomen pelvis findings reviewed. Patient started on sequestrant, Lomotil REVIEW OF SYSTEMS: Nausea, vomiting, diarrhea, weakness improved CONSTITUTIONAL: No fever, no malaise, no fatigue. HEENT: No recent visual problems or hearing problems. Denied any sore throat. CARDIOVASCULAR: No chest pain, orthopnea, PND, no palpitations, no syncope. PULMONARY: No shortness of breath, no cough, no hemoptysis. GASTROINTESTINAL:Nausea, vomiting, diarrhea, weakness improved NEUROLOGICAL: No headaches, no weakness, no numbness. HEMATOLOGICAL: Denies any bleeding or petechiae. GENITOURINARY: Denies any burning micturition, frequency, or urgency. MUSCULOSKELETAL/RHEUMATOLOGICAL: Denies any joint pain, swelling, or any muscle pain. ENDOCRINE: Denies any polyuria or polydipsia. PHYSICAL EXAMINATION: GENERAL: The patient is alert and oriented x3, not in any acute distress. Chronic ill appearance HEENT: Pupils are round and equally reacting to light. EOMI. No scleral icterus. CARDIOVASCULAR: S1 and S2 present. No murmurs, rubs, or gallops. PULMONARY: Chest is clear to auscultation, no wheezing or crackles. ABDOMEN: Soft, mild tender on palpation no guarding or rigidity MUSCULOSKELETAL: No joint swelling or deformity. EXTREMITIES: No cyanosis, clubbing, or pedal edema. NEUROLOGICAL: Gross neurological examination did not reveal any focal deficits. SKIN: No rashes. Objective - Vital Signs Vital signs: Vital Signs Temp 97.7 F 12/02/23 18:20 Pulse 99 12/02/23 23:16 Resp 12 12/02/23 23:16 BP 104/61 12/02/23 23:16 Pulse Ox 95 12/02/23 23:16 FiO2 Intake & Output 12/02/23 12/02/23 12/03/23 06:59 18:59 06:59 Weight 57.153 kg - Labs CBC & Chem 7: 12/03/23 06:40 12/03/23 06:40 Labs: Abnormal Lab Results - Last 24 Hours (Table) 12/02/23 12/02/23 12/02/23 Range/Units 10:39 10:39 10:39 RDW 16.1 H (11.5-15.5) % Plt Count 139 L (150-450) k/uL Sodium 133 L (137-145) mmol/L Potassium 5.2 H (3.5-5.1) mmol/L BUN 48 H (7-17) mg/dL Creatinine 1.23 H (0.52-1.04) mg/dL Glucose 143 H (74-99) mg/dL POC Glucose (mg/dL) (70-110) mg/dL Magnesium 1.4 L (1.6-2.3) mg/dL AST 97 H (14-36) U/L ALT 83 H (4-34) U/L Alkaline Phosphatase 130 H (38-126) U/L Urine Appearance Cloudy H (Clear) Urine Glucose (UA) 3+ H (Negative) Ur Leukocyte Esterase Small H (Negative) Urine WBC 6 H (0-5) /hpf Ur Squamous Epith Cells 11 H (0-4) /hpf Urine Bacteria Rare H (None) /hpf Urine Mucus Rare H (None) /hpf SARS-CoV-2 (PCR) (Not Detectd) 12/02/23 12/02/23 12/02/23 Range/Units 10:39 16:57 20:32 RDW (11.5-15.5) % Plt Count (150-450) k/uL Sodium (137-145) mmol/L Potassium (3.5-5.1) mmol/L BUN (7-17) mg/dL Creatinine (0.52-1.04) mg/dL Glucose (74-99) mg/dL POC Glucose (mg/dL) 180 H 228 H (70-110) mg/dL Magnesium (1.6-2.3) mg/dL AST (14-36) U/L ALT (4-34) U/L Alkaline Phosphatase (38-126) U/L Urine Appearance (Clear) Urine Glucose (UA) (Negative) Ur Leukocyte Esterase (Negative) Urine WBC (0-5) /hpf Ur Squamous Epith Cells (0-4) /hpf Urine Bacteria (None) /hpf Urine Mucus (None) /hpf SARS-CoV-2 (PCR) Detected A (Not Detectd) Assessment and Plan Assessment: Assessment and plan * Nausea, vomiting diarrhea postchemotherapy rule out infectious etiology C. difficile negative * squamous cell carcinoma of the lung receiving chemotherapy stage IIIa non- small cell lung cancer * COVID-19 viral infection sequel, tested to 05/30 * History of COPD * History of autologous stem cell transplant * History of diffuse large B-cell lymphoma * History of chronic kidney disease * Ischemic cardiomyopathy * History of coronary artery disease * Diabetes mellitus type 2 * In regards to postchemotherapy nausea, vomiting, as needed Zofran IV Continue with fluid resuscitation, CT abdomen pelvis Reviewed, findings consistent with diarrhea, C. difficile negative continue Lomotil and sequestered * In regards to history of lung cancer oncology consulted * Regards to history of COPD, continue albuterol nebulization as needed, * In regards to cardiomyopathy, ICD in place continue digoxin, metoprolol, Aldactone, Lasix on hold , minimal oral intake , Continue patient on fluids * In regards to history of coronary artery disease with history of CABG continue medical management aspirin, Plavix, Lipitor * CODE STATUS is full code Time with Patient: Greater than 30
[2023-12-03] MEDS: INSULIN REGULAR 100 UNIT/ML VIAL (IV) IV ONE (12:58)
[2023-12-03] MEDS: LOPERAMIDE 2 MG CAP PO STA (12:58)
[2023-12-03] MEDS: DEXTROSE 50% SYRINGE 50 ML IVP ONE (12:59)
[2023-12-03] MEDS ORDERED: LOPERAMIDE 2 MG CAP PO SCH (13:00)
[2023-12-03] MEDS: SODIUM BICARB 8.4% 50 ML SYR (1 MEQ/ML) IV ONE (13:02)
[2023-12-03] MEDS: CALCIUM GLUCONATE IN NACL 1 GM in SALINE 1 100ML.BAG IVPB ONE (13:04)
[2023-12-03 16:50] LABS: Glucose,Whole Blood 143 mg/dL (70-110)
--- NOTE | 2023-12-03 17:06 | P.CONS ---
History of Present Illness - Reason for Consult Consult date: 12/03/23 lung cancer Requesting physician: Key Mario - Chief Complaint weakness, n/v/d - History of Present Illness Ms. Kim is a 73-year-old woman with a past medical history significant for metastatic breast cancer who underwent autologous stem cell transplant at [facility] in the with no evidence of disease recurrence, diffuse large B-cell lymphoma of the left upper lobe treated with resection and 4 cycles of Bendamustine/rituximab, and most recently diagnosed with stage IIIA squamous cell carcinoma of the lung in late September 2023. She was seen on consult earlier this month at [facility] after being diagnosed with COVID-19. She had been in [place], where she had initially intended to receive treatment for her lung cancer, but had difficulty establishing care at [facility]. She was scheduled to receive cycle 1 of carboplatin/paclitaxel/Keytruda on 11/19/2023 but was postponed due to COVID infection. Treatment was rescheduled and completed cycle 1 of carbo/taxol/keytruda on 11/27/23. patient presents to the emergency room with complaints of generalized weakness and nausea vomiting and diarrhea. Patient reports prostate 2 days after her first cycle of treatment she began to experience severe diarrhea, nausea vomiting, abdominal cramping and progressing weakness. Patient denies blood in stool/melena and denies blood in emesis. She reports taking Imodium at home with no relief in symptoms. Upon admission CT abdomen pelvis without contrast revealed prominent liquid stool throughout the colon. No abnormal colonic wall thickening or pericolonic inflammation. Subtle underlying nodularity of the right adrenal gland measuring 10 mm and 6 mm. Moderate gastric fold thickening which could reflect gastritis. Covid testing positive, however this is likely positive from previous infection and not from reinfection. C. difficile negative. Counts stable, WBC 6.1, hemoglobin 12.8, platelets 139,000. Creatinine 1.23, GFR 44. Bilirubin 1.1, AST 97, ALT 83, ALP 130. Antidiarrheals, antiemetics and fluids have been started. Review of Systems 10 point ROS is negative except as stated in the HPI Past Medical History Past Medical History: Asthma, Coronary Artery Disease (CAD), Cancer, Diabetes Mellitus, GERD/Reflux, Hypertension, Myocardial Infarction ([place]), Pneumonia, Thyroid Disorder Additional Past Medical History / Comment(s): NSTEMI in September 2016 with subsequent coronary artery bypass grafting x 1, BRAR to the LAD, in October 2016. Severe ischemic cardiomyopathy with estimated ejection fraction 25-30%. Pending AICD placement. Admitted for hypotension in 11-13-16. Remote history of left Breast cancer stage 4(1994) had mastectomy and radiation/chemo,had genetic testing done,was poisitve for BRCA 2 gene mutation, so had elective right mastectomy done. Left upper lobe lung nodule positive for B-lymphoma was biopsied at [facility], and left upper lobe was resected by Dr. Salgado. She received 4 chemo tx, pne/sepsis Last Myocardial Infarction Date:: History of Any Multi-Drug Resistant Organisms: C-DIFF Year Discovered:: 10/2016 MDRO Source:: stool Past Surgical History: Appendectomy, Breast Surgery, Cholecystectomy, Coronary Bypass/CABG, Heart Catheterization, Hysterectomy, Pacemaker, Tubal Ligation Additional Past Surgical History / Comment(s): LT BREAST WAS POSTIVE FOR CANCER STAGE 4 cancer-had masectomy. 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 lt cataract removed, 10-07-16 CABG( 1 VESSEL), LT INTERNAL MAMMARY ARTERY TO LEFT ANT DESCENDING ARTERY. EVAN OOPHERECTOMY(PROPHYLATIC), LUNG NODULE REMOVED(CANCEROUS-lymhoma- AND RECEIVED SEVERAL CHEMO tx, several venous access devices since removed. Past Anesthesia/Blood Transfusion Reactions: No Reported Reaction Additional Past Anesthesia/Blood Transfusion Reaction / Comm: takes a bit to wake up after Type of Cardiac Device: Unknown Device Placement Date:: UNK Past Psychological History: No Psychological Hx Reported Smoking Status: Never smoker Past Alcohol Use History: None Reported Past Drug Use History: None Reported - Past Family History Mother Family Medical History: Diabetes Mellitus Additional Family Medical History / Comment(s): heart valve replacment Father Family Medical History: Cancer Additional Family Medical History / Comment(s): lung cancer Sister(s) Family Medical History: Cancer Additional Family Medical History / Comment(s): breast cancer Medications and Allergies Home Medications Medication Instructions Recorded Confirmed Type Digoxin [Lanoxin] 125 mcg PO DAILY tab 01/01/17 12/02/23 Rx Spironolactone [Aldactone] 25 mg PO DAILY 08/04/17 12/02/23 History Atorvastatin [Lipitor] 40 mg PO DAILY 01/01/18 12/02/23 History Levothyroxine Sodium [Synthroid] 50 mcg PO DAILY 01/01/18 12/02/23 History metFORMIN HCL [Glucophage] 500 mg PO BID 05/09/19 12/02/23 History Gabapentin [Neurontin] 300 mg PO BID 09/17/23 12/02/23 History Albuterol Inhaler [Ventolin Hfa 1 - 2 puff INHALATION RT-Q6H PRN 11/14/23 12/02/23 History Inhaler] Clopidogrel [Plavix] 75 mg PO DAILY 11/14/23 12/02/23 History Colchicine 0.6 mg PO DAILY 11/14/23 12/02/23 History Furosemide [Lasix] 40 mg PO DAILY 11/14/23 12/02/23 History Metoprolol Succinate (ER) [Toprol 50 mg PO DAILY 11/14/23 12/02/23 History XL] Omeprazole 20 mg PO DAILY 11/14/23 12/02/23 History allopurinoL [Zyloprim] 300 mg PO DAILY 11/14/23 12/02/23 History lisinopriL [Zestril] 5 mg PO DAILY 11/14/23 12/02/23 History Aspirin EC [Ecotrin Low Dose] 81 mg PO DAILY 12/02/23 12/02/23 History Ondansetron [Zofran] 4 - 8 mg PO Q4HR PRN 12/02/23 12/02/23 History Allergies Allergy/AdvReac Type Severity Reaction Status Date / Time ampicillin [From Unasyn] AdvReac Severe Nausea & Verified 12/02/23 12:23 Vomiting sulbactam [From Unasyn] AdvReac Severe Nausea & Verified 12/02/23 12:23 Vomiting acetaminophen [From [place]] AdvReac Intermediate Nausea & Verified 12/02/23 12:23 Vomiting hydrocodone [From [place]] AdvReac Intermediate Nausea & Verified 12/02/23 12:23 Vomiting codeine AdvReac Nausea & Verified 12/02/23 12:23 [From Tylenol-Codeine #3] Vomiting morphine AdvReac nausea, Verified 12/02/23 12:23 vomiting, and confusion Physical Exam Vitals: Vital Signs Temp Pulse Resp BP Pulse Ox 12/03/23 07:40 97.8 F 98 17 101/56 96 12/03/23 06:52 102 H 18 100/62 95 12/02/23 23:16 99 12 104/61 95 12/02/23 20:40 105 H 23 103/59 95 12/02/23 18:20 97.7 F 105 H 20 108/62 96 12/02/23 16:56 100 20 122/61 96 12/02/23 14:55 107 H 20 126/58 96 12/02/23 13:09 112 H 18 106/63 96 12/02/23 12:03 112 H 18 107/53 97 12/02/23 10:22 98.1 F 103 H 18 107/58 95 12/02/23 09:57 98.4 F 107 H 18 99/63 95 - Constitutional General appearance: average body habitus, no acute distress - EENT Eyes: anicteric sclerae, EOMI ENT: hearing grossly normal - Respiratory Respiratory: bilateral: CTA - Cardiovascular Rhythm: regular Heart sounds: normal: S1, S2 Abnormal Heart Sounds: no systolic murmur, no diastolic murmur, no rub, no S3 Gallop, no S4 Gallop, no click, no other - Gastrointestinal General gastrointestinal: soft, tenderness Localized gastrointestinal: tender: RUQ (>RUQ), LUQ, LLQ - Integumentary Integumentary: no cyanotic, no jaundiced - Neurologic Neurologic: CNII-XII intact - Musculoskeletal Musculoskeletal: generalized weakness - Psychiatric Psychiatric: A&O x's 3 Results CBC & Chem 7: 12/03/23 06:40 12/03/23 06:40 Labs: Abnormal Lab Results - Last 24 Hours (Table) 12/02/23 12/02/23 12/02/23 Range/Units 10:39 10:39 10:39 RDW 16.1 H (11.5-15.5) % Plt Count 139 L (150-450) k/uL Sodium 133 L (137-145) mmol/L Potassium 5.2 H (3.5-5.1) mmol/L BUN 48 H (7-17) mg/dL Creatinine 1.23 H (0.52-1.04) mg/dL Glucose 143 H (74-99) mg/dL POC Glucose (mg/dL) (70-110) mg/dL Magnesium 1.4 L (1.6-2.3) mg/dL AST 97 H (14-36) U/L ALT 83 H (4-34) U/L Alkaline Phosphatase 130 H (38-126) U/L Urine Appearance Cloudy H (Clear) Urine Glucose (UA) 3+ H (Negative) Ur Leukocyte Esterase Small H (Negative) Urine WBC 6 H (0-5) /hpf Ur Squamous Epith Cells 11 H (0-4) /hpf Urine Bacteria Rare H (None) /hpf Urine Mucus Rare H (None) /hpf SARS-CoV-2 (PCR) (Not Detectd) 12/02/23 12/02/23 12/02/23 Range/Units 10:39 16:57 20:32 RDW (11.5-15.5) % Plt Count (150-450) k/uL Sodium (137-145) mmol/L Potassium (3.5-5.1) mmol/L BUN (7-17) mg/dL Creatinine (0.52-1.04) mg/dL Glucose (74-99) mg/dL POC Glucose (mg/dL) 180 H 228 H (70-110) mg/dL Magnesium (1.6-2.3) mg/dL AST (14-36) U/L ALT (4-34) U/L Alkaline Phosphatase (38-126) U/L Urine Appearance (Clear) Urine Glucose (UA) (Negative) Ur Leukocyte Esterase (Negative) Urine WBC (0-5) /hpf Ur Squamous Epith Cells (0-4) /hpf Urine Bacteria (None) /hpf Urine Mucus (None) /hpf SARS-CoV-2 (PCR) Detected A (Not Detectd) 12/03/23 Range/Units 07:37 RDW (11.5-15.5) % Plt Count (150-450) k/uL Sodium (137-145) mmol/L Potassium (3.5-5.1) mmol/L BUN (7-17) mg/dL Creatinine (0.52-1.04) mg/dL Glucose (74-99) mg/dL POC Glucose (mg/dL) 140 H (70-110) mg/dL Magnesium (1.6-2.3) mg/dL AST (14-36) U/L ALT (4-34) U/L Alkaline Phosphatase (38-126) U/L Urine Appearance (Clear) Urine Glucose (UA) (Negative) Ur Leukocyte Esterase (Negative) Urine WBC (0-5) /hpf Ur Squamous Epith Cells (0-4) /hpf Urine Bacteria (None) /hpf Urine Mucus (None) /hpf SARS-CoV-2 (PCR) (Not Detectd) CT scan - abdomen: report reviewed CT scan - pelvis: report reviewed Assessment and Plan (1) Dehydration Current Visit: Yes Status: Acute Priority: High Code(s): E86.0 - DEHYDRATION SNOMED Code(s): 61867197 (2) Diarrhea Current Visit: Yes Status: Acute Priority: High Code(s): R19.7 - DIARRHEA, UNSPECIFIED SNOMED Code(s): 45868153 (3) Weakness Current Visit: Yes Status: Acute Priority: High Code(s): R53.1 - WEAKNESS SNOMED Code(s): 64330216 (4) Squamous cell carcinoma of lung, stage III Current Visit: Yes Status: Acute Priority: High Code(s): C34.90 - MALIGNANT NEOPLASM OF UNSP PART OF UNSP BRONCHUS OR LUNG SNOMED Code(s): 464645723 Plan: Diarrhea, nausea/vomiting: Presented with generalized weakness, nausea vomiting and severe diarrhea. Denies blood in stool/melena and denies blood in emesis. She reports taking Imodium at home with no relief in symptoms. -Upon admission CT abdomen pelvis without contrast revealed prominent liquid stool throughout the colon. No abnormal colonic wall thickening or pericolonic inflammation. Subtle underlying nodularity of the right adrenal gland measuring 10 mm and 6 mm. Moderate gastric fold thickening which could reflect gastritis. Covid testing positive, however this is likely positive from previous infection and not from reinfection. C. difficile negative. Creatinine 1.23, GFR 44. Bilirubin 1.1, AST 97, ALT 83, ALP 130. -Antidiarrheals, antiemetics and fluids have been started -Will likely have to prescribe questran or lomotil for subsequent treatments for better management of diarrhea, as imodium did not improve symptoms. Will also schedule IV fluid hydration in clinic as needed Stage IIIA non-small cell lung cancer: -Diagnosed in late September 2023 with recommendation for chemoimmunotherapy -Initially had planned to receive treatment in [place], but difficulty establishing at [facility] -Cycle 1 delayed due to recent COVID infection. Completed cycle 1 of carboplatin/paclitaxel/pembrolizumab on 11/27/23 -Counts stable, WBC 6.1, hemoglobin 12.8, platelets 139,000 -Clinic f/u scheduled on 12/09 to ensure pt has adequately recovered prior to proceeding with next cycle Dr attests: I have performed H&P and developed impression and plan of care for patient, discussed with dictator. I agree with dictated note, documented as a scribe
[2023-12-03] MEDS: CHOLESTYRAMINE (WITH SUGAR) 4 GM PACKET PO SCH (17:31)
[2023-12-03] MEDS: ALBUTEROL HFA INHALER INHALATION PRN (20:05)
[2023-12-03 20:58] LABS: Glucose,Whole Blood 145 mg/dL (70-110)
[2023-12-04 05:46] LABS: Glucose,Whole Blood 98 mg/dL (70-110)
[2023-12-04 08:36] LABS: HGB 9.7 g/dL (12.0-15.0); MCH 30.5 pg (27.0-32.0); MCHC 31.3 g/dL (32.0-37.0); MCV 97.5 FL (80.0-97.0); Mean Platelet Volume 10.5 FL (9.5-12.2); NRBC Per 100 WBC 0 X 10*3/uL (0.00-0.01); Platelet Count 113 X 10*3/uL (140-440); RBC 3.18 X 10*6/uL (4.10-5.20); WBC 4.27 X 10*3/uL (4.50-10.00)
[2023-12-04 09:17] LABS: BUN/Creat Ratio 31.62 Ratio (12.00-20.00); Blood Urea Nitrogen 41.1 mg/dL (9.0-27.0); Calcium 8.6 mg/dL (8.7-10.3); Chloride 105 mmol/L (96-109); Glucose 103 mg/dL (70-110); Potassium 4.9 mmol/L (3.5-5.5); Sodium 135 mmol/L (135-145)
[2023-12-04 11:39] LABS: Glucose,Whole Blood 96 mg/dL (70-110)
--- NOTE | 2023-12-04 13:24 | P.PN ---
Subjective 73-year-old patient with past medical history of squamous cell lung cancer, history of COPD, chronic kidney disease, history of metastatic breast cancer, s/p stem cell transplant, history of COVID-19, history of non-Hodgkin lymphoma, coronary artery disease, history of CABG, history of severe ischemic cardiomyopathy with ejection fraction of 35%, s/p ICD, hypertension, hyperlipidemia presents to the emergency department with complaints of weakness, diarrhea. Patient was recently admitted and discharged on 11/16/2023 patient was admitted for shortness of breath patient was treated for COPD and COVID-19 and discharged home on oral prednisone. * Patient presents with progressive weakness patient stated she started chemotherapy for lung cancer 5 days ago and since then patient has been very ill and weak. She has been complaining of nausea, vomiting and diarrhea. Diarrhea has been constant and patient says she has not been able to keep an ything down. Patient states she has taken Zofran however that was not very effective. * Workup in ER included EKG which showed QTc of 363. No significant ST segment changes noted, baseline EKG changes noted from ICD device * Workup included CBC which showed WBC count of 6.1 hemoglobin 12.8 platelet count of 139. Serum chemistry showed sodium 133 potassium 5.2 carbon dioxide 23 BUN 48 creatinine 1.23 glucose 143 magnesium of 1.9 AST of 97 ALT 83 * Patient to be admitted to medical floor with consultation from physical therapy occupational therapy as well as fluid resuscitation * 12/03/23: patient seen and evaluated at bedside, patient resuscitated with fluid overnight, stool C diff negative, Lasix continue to remain on hold. Will continue to follow up on CBC and basic metabolic panel. Patient will need physical therapy occupational therapy evaluation. Patient Oncology team consulted as well waiting evaluation. CT abdomen pelvis findings reviewed. Patient started on sequestrant, Lomotil 12/04/2023 Patient sitting in chair looks comfortable She still looks dehydrated and needs IV fluid She still complaining of from profuse diarrhea, she had 4 bouts yesterday and 1 this morning which were large amounts and bothering the patient No significant abdominal pain or tenderness or vomiting She tolerates diet Increased normal saline 75 blade a power of to 100 mL/h Blood culture is ordered and pending. Pro-calcitnin 0.12 No signs of fluid overload Labs reviewed. See 4.2, hemoglobin 9.7, creatinine 1.3 which is at baseline as patient with CTD stage III. Potassium of 4.9, ever enzymes mildly elevated Review of systems CONSTITUTIONAL: No fever, no malaise, no fatigue. HEENT: No recent visual problems or hearing problems. Denied any sore throat. CARDIOVASCULAR: No orthopnea, PND, no palpitations, no syncope. PULMONARY: No shortness of breath, no cough, no hemoptysis. NEUROLOGICAL: No headaches, no weakness, no numbness. HEMATOLOGICAL: Denies any bleeding or petechiae. Active Medications Generic Name Dose Route Start Last Admin Trade Name Freq PRN Reason Stop Dose Admin Albuterol Sulfate 2 puff 12/02/23 15:11 12/03/23 20:05 Albuterol Hfa Inhaler INHALATION 2 puff RT-Q6H PRN Administration Shortness Of Breath Allopurinol 300 mg 12/03/23 09:00 12/04/23 10:09 Allopurinol 300 Mg Tab PO 300 mg DAILY BERONICA Administration Aspirin 81 mg 12/03/23 09:00 12/04/23 10:08 Aspirin 81 Mg PO 81 mg DAILY BERONICA Administration Atorvastatin Calcium 40 mg 12/03/23 09:00 12/04/23 10:09 Atorvastatin 40 Mg Tab PO 40 mg DAILY BERONICA Administration Cholestyramine Resin 4 gm 12/03/23 18:00 12/04/23 10:31 Cholestyramine (With Sugar) 4 Gm Packet PO Not Given BID@1000,1800 BERONICA Clopidogrel Bisulfate 75 mg 12/03/23 09:00 12/04/23 10:09 Clopidogrel 75 Mg Tab PO 75 mg DAILY BERONICA Administration Colchicine 0.6 mg 12/03/23 09:00 12/04/23 10:03 Colchicine 0.6 Mg Each PO Not Given DAILY BERONICA Dextrose/Water 25 ml 12/02/23 14:34 Dextrose 50% Syringe 50 Ml IVP PER PROTOCOL PRN Hypoglycemia Protocol Dextrose/Water 50 ml 12/02/23 14:34 Dextrose 50% Syringe 50 Ml IVP PER PROTOCOL PRN Hypoglycemia Protocol Digoxin 125 mcg 12/03/23 09:00 12/04/23 10:03 Digoxin 125 Mcg Tab PO Not Given DAILY BERONICA Enoxaparin Sodium 40 mg 12/03/23 09:00 12/04/23 10:09 Enoxaparin 40 Mg/0.4 Ml Syringe SQ 40 mg DAILY BERONICA Administration Gabapentin 300 mg 12/02/23 21:00 12/04/23 10:09 Gabapentin 300 Mg Cap PO 300 mg BID [facility] Administration Sodium Chloride 1,000 mls @ 100 mls/hr 12/04/23 13:18 Saline 0.9% IV .Q10H [facility] Insulin Aspart 0 unit 12/02/23 17:30 12/04/23 13:16 Insulin Aspart (Novolog) 100 Unit/Ml Vial SQ Not Given ACHS [facility] Protocol Levothyroxine Sodium 50 mcg 12/03/23 06:30 12/04/23 06:05 Levothyroxine 50 Mcg Tab PO 50 mcg DAILY@0630 [facility] Administration Loperamide HCl 2 mg 12/03/23 12:27 Loperamide 2 Mg Cap PO QID PRN Diarrhea Metformin HCl 500 mg 12/02/23 17:30 12/04/23 06:06 Metformin 500 Mg Tab PO 500 mg BID-W/MEALS [facility] Administration Metoprolol Succinate 50 mg 12/02/23 14:38 12/04/23 10:09 Metoprolol Succinate (Er) 50 Mg Tab.Er.24h PO 50 mg DAILY [facility] Administration Naloxone HCl 0.2 mg 12/02/23 14:25 Naloxone 0.4 Mg/Ml 1 Ml Vial IV Q2M PRN Opioid Reversal Ondansetron HCl 4 mg 12/02/23 14:24 Ondansetron 4 Mg/2 Ml Vial IVP Q6HR PRN Nausea And Vomiting Pantoprazole Sodium 40 mg 12/03/23 07:30 12/04/23 06:05 Pantoprazole 40 Mg Tablet PO 40 mg AC[id number] Administration Prochlorperazine Maleate 5 mg 12/02/23 14:26 Prochlorperazine 5 Mg Tab PO Q8HR PRN Nausea And Vomiting Sodium Bicarbonate 650 mg 12/04/23 11:00 Sodium Bicarbonate Tab 650 Mg Tab PO 12/05/23 09:01 TID [facility] Objective - Vital Signs Vital signs: Vital Signs Temp 97.8 F 12/04/23 07:31 Pulse 98 12/04/23 07:31 Resp 18 12/04/23 07:31 BP 93/57 12/04/23 07:31 Pulse Ox 96 12/04/23 07:31 FiO2 Intake & Output 12/03/23 12/04/23 12/04/23 18:59 06:59 18:59 Weight 57.153 kg Other: Voiding Method Toilet # Voids 2 - Labs CBC & Chem 7: 12/04/23 06:12 12/04/23 06:12 Labs: Abnormal Lab Results - Last 24 Hours (Table) 12/03/23 12/03/23 12/03/23 Range/Units 07:44 16:47 17:28 WBC (4.50-10.00) X 10*3/uL RBC (4.10-5.20) X 10*6/uL Hgb (12.0-15.0) g/dL Hct (37.2-46.3) % MCV (80.0-97.0) FL MCHC (32.0-37.0) g/dL RDW (11.5-14.5) % Plt Count (140-440) X 10*3/uL Potassium 5.3 H (3.5-5.1) mmol/L Carbon Dioxide (21.6-31.8) mmol/L BUN (9.0-27.0) mg/dL Est GFR (CKD-EPI) (>=60) BUN/Creatinine Ratio (12.00-20.00) Ratio POC Glucose (mg/dL) 143 H (70-110) mg/dL Calcium (8.7-10.3) mg/dL Procalcitonin (0.02-0.09) ng/mL Stool Lactoferrin Positive A (Negative) 12/03/23 12/04/23 12/04/23 Range/Units 20:56 06:12 06:12 WBC 4.27 L (4.50-10.00) X 10*3/uL RBC 3.18 L (4.10-5.20) X 10*6/uL Hgb 9.7 L (12.0-15.0) g/dL Hct 31.0 L (37.2-46.3) % MCV 97.5 H (80.0-97.0) FL MCHC 31.3 L (32.0-37.0) g/dL RDW 16.0 H (11.5-14.5) % Plt Count 113 L (140-440) X 10*3/uL Potassium (3.5-5.1) mmol/L Carbon Dioxide 19.0 L (21.6-31.8) mmol/L BUN 41.1 H (9.0-27.0) mg/dL Est GFR (CKD-EPI) 43 L (>=60) BUN/Creatinine Ratio 31.62 H (12.00-20.00) Ratio POC Glucose (mg/dL) 145 H (70-110) mg/dL Calcium 8.6 L (8.7-10.3) mg/dL Procalcitonin (0.02-0.09) ng/mL Stool Lactoferrin (Negative) 12/04/23 Range/Units 06:12 WBC (4.50-10.00) X 10*3/uL RBC (4.10-5.20) X 10*6/uL Hgb (12.0-15.0) g/dL Hct (37.2-46.3) % MCV (80.0-97.0) FL MCHC (32.0-37.0) g/dL RDW (11.5-14.5) % Plt Count (140-440) X 10*3/uL Potassium (3.5-5.1) mmol/L Carbon Dioxide (21.6-31.8) mmol/L BUN (9.0-27.0) mg/dL Est GFR (CKD-EPI) (>=60) BUN/Creatinine Ratio (12.00-20.00) Ratio POC Glucose (mg/dL) (70-110) mg/dL Calcium (8.7-10.3) mg/dL Procalcitonin 0.12 H (0.02-0.09) ng/mL Stool Lactoferrin (Negative) Assessment and Plan Assessment: Acute viral gastroenteritis secondary to call with infection. C. difficile negative Dehydration and hypovolemia secondary to above squamous cell carcinoma of the lung receiving chemotherapy stage IIIa non-small cell lung cancer COVID-19 viral infection sequel, tested to 11/14/23 History of COPD History of autologous stem cell transplant History of diffuse large B-cell lymphoma History of chronic kidney disease Ischemic cardiomyopathy History of coronary artery disease Diabetes mellitus type 2 Plan: Continue with normal saline and decreased rectal 100 mL per hour Continue to monitor vitals blood pressure. Monitor electrolytes. Hematology/oncology team on the case Labs and medication were reviewed.. Continue same treatment. Continue with symptomatic treatment. Resume home medication. Monitor labs and vitals. DVT and GI prophylaxis. Further recommendations as per clinical course of the patient DVT prophylaxis: Subcutaneous Lovenox GI Prophylaxis: Ppi PT/OT: Occupational therapist recommended home Prognosis is guarded
[2023-12-04] MEDS: SODIUM BICARBONATE TAB 650 MG TAB PO SCH (13:51)
[2023-12-04] MEDS: SODIUM CHLORIDE 0.9% 1,000 ML IV SCH (13:53)
[2023-12-04] MEDS: LOPERAMIDE 2 MG CAP PO SCH (13:54)
[2023-12-04 14:51] VITALS: BMI 22.3
--- NOTE | 2023-12-04 15:45 | P.PN ---
Subjective Progress Note Date: 12/04/23 In f/u today patient is reporting mild improvement in diarrhea. Had 2 episodes of watery diarrhea overnight and one this morning. C. difficile negative. Upon review of MAR Questran was not given this morning and prn Imodium also has not been given. Patient states she did not take Questran this morning because "it gets clumpy." Nausea/vomiting has resolved. Patient is tolerating oral intake. Counts stable Objective - Vital Signs Vital signs: Vital Signs Temp 97.7 F 12/04/23 14:01 Pulse 100 12/04/23 14:01 Resp 18 12/04/23 14:01 BP 106/64 12/04/23 14:01 Pulse Ox 97 12/04/23 14:01 FiO2 Intake & Output 12/03/23 12/04/23 12/04/23 18:59 06:59 18:59 Weight 57.153 kg 57.153 kg Other: Voiding Method Toilet # Voids 2 - Constitutional General appearance: Present: average body habitus, no acute distress - EENT Eyes: Present: anicteric sclerae, EOMI ENT: Present: hearing grossly normal - Respiratory Details: breathing is even and unlabored - Cardiovascular Details: well-perfused - Gastrointestinal Gastrointestinal Comment(s): abdominal tenderness improved - Integumentary Integumentary: Absent: cyanotic, jaundiced - Neurologic Neurologic: Present: CNII-XII intact - Musculoskeletal Musculoskeletal: Present: strength equal bilaterally - Psychiatric Psychiatric: Present: A&O x's 3 - Labs CBC & Chem 7: 12/04/23 06:12 12/04/23 06:12 Labs: Abnormal Lab Results - Last 24 Hours (Table) 12/03/23 12/03/23 12/03/23 Range/Units 07:44 16:47 17:28 WBC (4.50-10.00) X 10*3/uL RBC (4.10-5.20) X 10*6/uL Hgb (12.0-15.0) g/dL Hct (37.2-46.3) % MCV (80.0-97.0) FL MCHC (32.0-37.0) g/dL RDW (11.5-14.5) % Plt Count (140-440) X 10*3/uL Potassium 5.3 H (3.5-5.1) mmol/L Carbon Dioxide (21.6-31.8) mmol/L BUN (9.0-27.0) mg/dL Est GFR (CKD-EPI) (>=60) BUN/Creatinine Ratio (12.00-20.00) Ratio POC Glucose (mg/dL) 143 H (70-110) mg/dL Calcium (8.7-10.3) mg/dL Procalcitonin (0.02-0.09) ng/mL Stool Lactoferrin Positive A (Negative) 12/03/23 12/04/23 12/04/23 Range/Units 20:56 06:12 06:12 WBC 4.27 L (4.50-10.00) X 10*3/uL RBC 3.18 L (4.10-5.20) X 10*6/uL Hgb 9.7 L (12.0-15.0) g/dL Hct 31.0 L (37.2-46.3) % MCV 97.5 H (80.0-97.0) FL MCHC 31.3 L (32.0-37.0) g/dL RDW 16.0 H (11.5-14.5) % Plt Count 113 L (140-440) X 10*3/uL Potassium (3.5-5.1) mmol/L Carbon Dioxide 19.0 L (21.6-31.8) mmol/L BUN 41.1 H (9.0-27.0) mg/dL Est GFR (CKD-EPI) 43 L (>=60) BUN/Creatinine Ratio 31.62 H (12.00-20.00) Ratio POC Glucose (mg/dL) 145 H (70-110) mg/dL Calcium 8.6 L (8.7-10.3) mg/dL Procalcitonin (0.02-0.09) ng/mL Stool Lactoferrin (Negative) 12/04/23 Range/Units 06:12 WBC (4.50-10.00) X 10*3/uL RBC (4.10-5.20) X 10*6/uL Hgb (12.0-15.0) g/dL Hct (37.2-46.3) % MCV (80.0-97.0) FL MCHC (32.0-37.0) g/dL RDW (11.5-14.5) % Plt Count (140-440) X 10*3/uL Potassium (3.5-5.1) mmol/L Carbon Dioxide (21.6-31.8) mmol/L BUN (9.0-27.0) mg/dL Est GFR (CKD-EPI) (>=60) BUN/Creatinine Ratio (12.00-20.00) Ratio POC Glucose (mg/dL) (70-110) mg/dL Calcium (8.7-10.3) mg/dL Procalcitonin 0.12 H (0.02-0.09) ng/mL Stool Lactoferrin (Negative) Assessment and Plan (1) Dehydration Current Visit: Yes Status: Acute Priority: High Code(s): E86.0 - DEHYDRATION SNOMED Code(s): 07832861 (2) Diarrhea Current Visit: Yes Status: Acute Priority: High Code(s): R19.7 - DIARRHEA, UNSPECIFIED SNOMED Code(s): 59755192 (3) Weakness Current Visit: Yes Status: Acute Priority: High Code(s): R53.1 - WEAKNESS SNOMED Code(s): 88010580 (4) Squamous cell carcinoma of lung, stage III Current Visit: Yes Status: Acute Priority: High Code(s): C34.90 - MALIGNANT NEOPLASM OF UNSP PART OF UNSP BRONCHUS OR LUNG SNOMED Code(s): 462897964 Plan: Diarrhea, nausea/vomiting: Presented with generalized weakness, nausea vomiting and severe diarrhea. Denies blood in stool/melena and denies blood in emesis. She reports taking Imodium at home with no relief in symptoms. -Upon admission CT abdomen pelvis without contrast revealed prominent liquid stool throughout the colon. No abnormal colonic wall thickening or pericolonic inflammation. Subtle underlying nodularity of the right adrenal gland measuring 10 mm and 6 mm. Moderate gastric fold thickening which could reflect gastritis. Covid testing positive, however this is likely positive from previous infection and not from reinfection. C. difficile negative, stool culture pending. Creatinine 1.23, GFR 44. Bilirubin 1.1, AST 97, ALT 83, ALP 130. -Antidiarrheals, antiemetics and fluids have been started - Nausea/vomiting has resolved. Patient is tolerating oral intake. Reporting mild improvement in diarrhea. Had 2 episodes of watery diarrhea overnight and one this morning. However, upon review of MAR, Questran was not given this morning and prn Imodium also has not been given. Patient states she did not take Questran this morning because "it gets clumpy." Spoke with nurse, and asked to try to use warm water with Questran to better dissolve medication so pt can tolerate. Imodium changed to scheduled dosing. Will continue to monitor symptoms -Discussed with pt that will likely have to prescribe questran or lomotil for subsequent treatments for better management of diarrhea, as imodium did not im prove symptoms. Will also schedule IV fluid hydration in clinic as needed Stage IIIA non-small cell lung cancer: -Diagnosed in late September 2023 with recommendation for chemoimmunotherapy -Initially had planned to receive treatment in [place], but difficulty establishing at [facility] -Cycle 1 delayed due to recent COVID infection. Completed cycle 1 of carboplatin/paclitaxel/pembrolizumab on 11/27/23 -Counts stable today, WBC 4.2, hemoglobin 9.7, platelets 113,000 -Clinic f/u scheduled on 12/09 to ensure pt has adequately recovered prior to proceeding with next cycle
[2023-12-04 16:25] LABS: Glucose,Whole Blood 125 mg/dL (70-110)
[2023-12-04 21:03] LABS: Glucose,Whole Blood 135 mg/dL (70-110)
[2023-12-05 02:36] VITALS: RESP 18
[2023-12-05 05:40] LABS: Glucose,Whole Blood 94 mg/dL (70-110)
[2023-12-05 08:19] VITALS: BP 97/62; PULSE 94; TEMP 97.8
[2023-12-05] MEDS ORDERED: LOPERAMIDE 2 MG CAP PO PRN (11:25)
[2023-12-05 11:43] LABS: Glucose,Whole Blood 97 mg/dL (70-110)
[2023-12-05 13:07] LABS: Anisocytosis Slight; Basophils % (A) 0 %; Eosinophils % (A) 1 %; HCT 33.4 % (34.0-46.0); HGB 10.7 gm/dL (11.4-16.0); Hypochromasia Slight; Lymphocytes # (A) 1.7 k/uL (1.0-4.8); Lymphocytes % (A) 52 %; MCH 31.8 pg (25.0-35.0); MCHC 32.1 g/dL (31.0-37.0); Macrocytosis Slight; Mean Platelet Volume 8.5; Monocytes # (A) 0.1 k/uL (0-1.0); Monocytes % (A) 2 %; Neutrophils # (A) 1.4 k/uL (1.3-7.7); Neutrophils % (A) 40 %; Platelet Count 129 k/uL (150-450); RBC 3.37 m/uL (3.80-5.40); RDW 16.3 % (11.5-15.5); WBC 3.4 k/uL (3.8-10.6)
--- NOTE | 2023-12-05 19:05 | P.PN ---
Subjective Progress Note Date: 12/05/23 In f/u today patient is reporting improvement in symptoms. N/V/D resolved. Tolerating oral intake. Reporting persisting fatigue. Counts stable Objective - Vital Signs Vital signs: Vital Signs Temp 97.8 F 12/05/23 07:56 Pulse 94 12/05/23 08:34 Resp 18 12/05/23 08:34 BP 97/62 12/05/23 07:56 Pulse Ox 98 12/05/23 07:56 FiO2 Intake & Output 12/04/23 12/05/23 12/05/23 18:59 06:59 18:59 Intake Total 180 Balance 180 Weight 57.153 kg Intake: Oral 180 Other: Voiding Method Toilet # Voids 4 3 - Constitutional General appearance: Present: average body habitus, no acute distress - EENT Eyes: Present: anicteric sclerae, EOMI ENT: Present: hearing grossly normal - Respiratory Details: breathing is even and unlabored - Cardiovascular Details: skin warm and dry - Gastrointestinal General gastrointestinal: Present: soft. Absent: tenderness - Integumentary Integumentary: Absent: cyanotic - Neurologic Neurologic: Present: CNII-XII intact - Musculoskeletal Musculoskeletal: Present: strength equal bilaterally - Psychiatric Psychiatric: Present: A&O x's 3 - Labs CBC & Chem 7: 12/05/23 12:35 12/04/23 06:12 Labs: Abnormal Lab Results - Last 24 Hours (Table) 12/04/23 12/05/23 Range/Units 21:01 12:35 WBC 3.4 L (3.8-10.6) k/uL RBC 3.37 L (3.80-5.40) m/uL Hgb 10.7 L (11.4-16.0) gm/dL Hct 33.4 L (34.0-46.0) % RDW 16.3 H (11.5-15.5) % Plt Count 129 L (150-450) k/uL POC Glucose (mg/dL) 135 H (70-110) mg/dL Microbiology - Last 24 Hours (Table) 12/04/23 06:16 Blood Culture - Preliminary Blood Assessment and Plan (1) Dehydration Status: Acute Priority: High Code(s): E86.0 - DEHYDRATION SNOMED Code(s): 90354204 (2) Diarrhea Status: Acute Priority: High Code(s): R19.7 - DIARRHEA, UNSPECIFIED SNOMED Code(s): 76565132 (3) Weakness Status: Acute Priority: High Code(s): R53.1 - WEAKNESS SNOMED Code(s): 93227185 (4) Squamous cell carcinoma of lung, stage III Status: Acute Priority: High Code(s): C34.90 - MALIGNANT NEOPLASM OF UNSP PART OF UNSP BRONCHUS OR LUNG SNOMED Code(s): 058987391 Plan: Diarrhea, nausea/vomiting: Presented with generalized weakness, nausea vomiting and severe diarrhea. Denies blood in stool/melena and denies blood in emesis. She reports taking Imodium at home with no relief in symptoms. -Upon admission CT abdomen pelvis without contrast revealed prominent liquid stool throughout the colon. No abnormal colonic wall thickening or pericolonic inflammation. Subtle underlying nodularity of the right adrenal gland measuring 10 mm and 6 mm. Moderate gastric fold thickening which could reflect gastritis. Covid testing positive, however this is likely positive from previous infection and not from reinfection. C. difficile negative, stool culture pending. Creatinine 1.23, GFR 44. Bilirubin 1.1, AST 97, ALT 83, ALP 130. -Antidiarrheals, antiemetics and fluids have been started -In f/u today nausea/vomiting/diarrhea has resolved. Patient is tolerating oral intake. -Discussed with pt that will likely have to prescribe questran or lomotil for subsequent treatments for better management of diarrhea, as imodium did not improve symptoms. Will also schedule IV fluid hydration in clinic as needed Stage IIIA non-small cell lung cancer: -Diagnosed in late September 2023 with recommendation for chemoimmunotherapy -Initially had planned to receive treatment in [place], but difficulty establishing at [facility] -Cycle 1 delayed due to recent COVID infection. Completed cycle 1 of carboplatin/paclitaxel/pembrolizumab on 11/27/23 -Counts stable, CBC today pending. -Clinic f/u scheduled on 12/09 to ensure pt has adequately recovered prior to proceeding with next cycle attests: I have performed H&P and developed impression and plan of care for patient, discussed with dictator. I agree with dictated note, documented as a scribe
--- NOTE | 2023-12-06 06:52 | P.DS ---
Providers Date of admission: 12/02/23 13:00 Attending physician: Stanley Lundberg MD Consults: 12/02/23 14:01 Consult Physician Urgent Consulting Provider: Ariane Dowell Consult Reason/Comments: Weakness, lung cancer patient Do you want consulting provider notified?: Yes Primary care physician: Stated None Hospital Course: Diagnoses: Acute viral gastroenteritis secondary to call with infection. C. difficile negative Dehydration and hypovolemia secondary to above improved squamous cell carcinoma of the lung receiving chemotherapy stage IIIa non-small cell lung cancer COVID-19 viral infection sequel, tested to 11/14/23 History of COPD History of autologous stem cell transplant History of diffuse large B-cell lymphoma History of chronic kidney disease Ischemic cardiomyopathy History of coronary artery disease Diabetes mellitus type 2 Hospital course: 73-year-old patient with past medical history of squamous cell lung cancer, history of COPD, chronic kidney disease, history of metastatic breast cancer, s/p stem cell transplant, history of COVID-19, history of non-Hodgkin lymphoma, coronary artery disease, history of CABG, history of severe ischemic cardiomyopathy with ejection fraction of 35%, s/p ICD, hypertension, hyperlipidemia presents to the emergency department with complaints of weakness, diarrhea. Patient was admitted to the hospital and she was treated with IV hydration and symptomatic treatment. Also she is been evaluated by hematology/oncology team were followed closely. Patient showed interval improvement in her symptoms significantly improved. On the day of discharge patient is fully awake oriented, sitting in chair says that she is back to her baseline other than the generalized weakness and that she is willing to be discharged home today. She denies any pain, no chest pain or abdominal pain. No vomiting. Patient eating well with no difficulty. Her diarrhea is improving as well, she had 2 loose bowel movement last night and 1 this morning. No signs of dehydration. Get up and go test is normal. Patient denies any other new complaints. Patient was cleared for discharge also by oncology team. Problems and management plan were discussed with the patient and he verbalized understanding and acceptance Patient was found stable and can be discharged home in guarded prognosis however he needs follow-up as an outpatient. Patient was instructed to follow up with PCP Dr. Ulloa within one week and patient agrees Patient is instructed to follow up with her oncologist doctor also on 12/09 and she agrees for her appointment Physical exam Gen: patient is a AAOx3, no distress CVS: S1-S2, RRR, no murmur Lungs: B/L CTA, no wheezing Abdomen: soft, no distention, no tenderness, positive bowel sounds Extremity: no leg edema or induration Time spent more than 35 minutes Plan - Discharge Summary Discharge Rx Participant: No New Discharge Prescriptions: New Loperamide [Imodium] 2 mg PO QID PRN #20 cap PRN Reason: Diarrhea Continue Digoxin [Lanoxin] 125 mcg PO DAILY tab Levothyroxine Sodium [Synthroid] 50 mcg PO DAILY Atorvastatin [Lipitor] 40 mg PO DAILY metFORMIN HCL [Glucophage] 500 mg PO BID Metoprolol Succinate (ER) [Toprol XL] 50 mg PO DAILY allopurinoL [Zyloprim] 300 mg PO DAILY Colchicine 0.6 mg PO DAILY Albuterol Inhaler [Ventolin Hfa Inhaler] 1 - 2 puff INHALATION RT-Q6H PRN PRN Reason: Shortness Of Breath Aspirin EC [Ecotrin Low Dose] 81 mg PO DAILY Gabapentin [Neurontin] 300 mg PO BID Omeprazole 20 mg PO DAILY Clopidogrel [Plavix] 75 mg PO DAILY Ondansetron [Zofran] 4 - 8 mg PO Q4HR PRN PRN Reason: Nausea And Vomiting Discontinued Spironolactone [Aldactone] 25 mg PO DAILY lisinopriL [Zestril] 5 mg PO DAILY Furosemide [Lasix] 40 mg PO DAILY Discharge Medication List Digoxin [Lanoxin] 125 mcg PO DAILY tab 01/01/17 [Rx] Atorvastatin [Lipitor] 40 mg PO DAILY 01/01/18 [History] Levothyroxine Sodium [Synthroid] 50 mcg PO DAILY 01/01/18 [History] metFORMIN HCL [Glucophage] 500 mg PO BID 05/09/19 [History] Gabapentin [Neurontin] 300 mg PO BID 09/17/23 [History] Albuterol Inhaler [Ventolin Hfa Inhaler] 1 - 2 puff INHALATION RT-Q6H PRN 11/14/23 [History] Clopidogrel [Plavix] 75 mg PO DAILY 11/14/23 [History] Colchicine 0.6 mg PO DAILY 11/14/23 [History] Metoprolol Succinate (ER) [Toprol XL] 50 mg PO DAILY 11/14/23 [History] Omeprazole 20 mg PO DAILY 11/14/23 [History] allopurinoL [Zyloprim] 300 mg PO DAILY 11/14/23 [History] Aspirin EC [Ecotrin Low Dose] 81 mg PO DAILY 12/02/23 [History] Ondansetron [Zofran] 4 - 8 mg PO Q4HR PRN 12/02/23 [History] Loperamide [Imodium] 2 mg PO QID PRN #20 cap 12/05/23 [Rx] Follow up Appointment(s)/Referral(s): Tamika Arechiga MD [STAFF PHYSICIAN] - 12/20/23 1:00 pm (your primary care doctor ) Ariane Dowell MD [STAFF PHYSICIAN] - 12/10/23 11:00 am ([address] [facility]) Activity/Diet/Wound Care/Special Instructions: heart healthy diet activity is restricted till you see your doctor you BP medication ( lasix, lisinopril and spironolactone ) were placed on hold upon discharge because of your episodes of diarreha we recommend to monitor your blood pressure closely withyour doctor and resume your blood pressure pills above accordingly with your doctor please Discharge Disposition: HOME SELF-CARE
== END 2023-12-05 13:07 | disposition home or self-care (01) ==
LOC: EC 09:53 → 4SSUR 13:00
PROVIDERS: ADMIT Internal Medicine; ATTEND Internal Medicine
DX: A08.4 Viral intestinal infection, unspecified (principal); E86.0 Dehydration; R53.1 Weakness; C34.90 Malignant neoplasm of unspecified part of unspecified bronchus or lung; U07.1 COVID-19; J45.909 Unspecified asthma, uncomplicated; I25.10 Atherosclerotic heart disease of native coronary artery without angina pectoris; K21.9 Gastro-esophageal reflux disease without esophagitis; I25.5 Ischemic cardiomyopathy; I25.2 Old myocardial infarction; I12.9 Hypertensive chronic kidney disease with stage 1 through stage 4 chronic kidney disease, or unspecified chronic kidney disease; N18.9 Chronic kidney disease, unspecified; E11.22 Type 2 diabetes mellitus with diabetic chronic kidney disease; Z85.3 Personal history of malignant neoplasm of breast; Z85.72 Personal history of non-Hodgkin lymphomas; Z86.16 Personal history of COVID-19; Z94.84 Stem cells transplant status; Z95.1 Presence of aortocoronary bypass graft; Z95.810 Presence of automatic (implantable) cardiac defibrillator; Z79.899 Other long term (current) drug therapy; Z79.890 Hormone replacement therapy; Z79.84 Long term (current) use of oral hypoglycemic drugs; Z79.02 Long term (current) use of antithrombotics/antiplatelets; Z79.82 Long term (current) use of aspirin; Z88.0 Allergy status to penicillin; Z88.5 Allergy status to narcotic agent; Z88.6 Allergy status to analgesic agent
CPT/HCPCS: 96372 ×3; 96361 ×2; 96374; 96375; 99285; 36415; 94640; 93005; 97165; 80053; 80048 ×2; 83605; 83735; 84100; 84132; 84484; 85025 ×2; 85027 ×2; 85610; 85730; 86140; 81001; 87040; 87324; 87045; 83630; 87046; 83036; 84145; 87636; 74176; G0378 ×5; J1100; J2405; J1650 ×3; J0613

== ENCOUNTER 2023-12-30 11:10 | Inpatient (IN) | payer MEDICARE, BC ==
--- NOTE | 2023-12-30 11:24 | ED ---
Weakness HPI - General Source: patient, RN notes reviewed Mode of arrival: ambulatory Limitations: no limitations - History of Present Illness MD Complaint: generalized weakness <Key Mario - Last Filed: 12/30/23 11:21> - General Source: patient, RN notes reviewed, old records reviewed <Franklin Lopez - Last Filed: 12/30/23 14:53> - General Chief complaint: Weakness Stated complaint: Weakness Time Seen by Provider: 12/30/23 11:23 - History of Present Illness Initial comments: This is a 73-year-old female who presents to the emergency department for generalized weakness. Patient started receiving chemotherapy for lung cancer in the last 1 to 2 months. Last chemotherapy treatment was 5 days ago. Currently follows with Dr. Dowell. She continues to feel very weak and has no appetite. (Key Mario) Patient is a 73-year-old female who presents emergency department complaining of weakness. Patient is currently receiving chemotherapy for lung cancer. Unknown what medication she is on. She has been feeling weak. Last received chemo on Saturday. This happened last time when she received the first round of chemotherapy a few weeks ago. Once it was her second round and once again she is feeling weak with less of an appetite. Has a chronic cough that is unchan ged. No real other symptoms other than generalized weakness throughout her body. Decreased appetite. Mild diarrhea. No abdominal pain, chest pain, shortness of breath. No fevers, chills, cough. Presents for further evaluation at this time. She does have a cardiac history. Patient originally seen as a quick note. (Franklin Lopez) - Related Data Home Medications Medication Instructions Recorded Confirmed Atorvastatin [Lipitor] 40 mg PO DAILY 01/01/18 12/02/23 Levothyroxine Sodium [Synthroid] 50 mcg PO DAILY 01/01/18 12/02/23 metFORMIN HCL [Glucophage] 500 mg PO BID 05/09/19 12/02/23 Gabapentin [Neurontin] 300 mg PO BID 09/17/23 12/02/23 Albuterol Inhaler [Ventolin Hfa 1 - 2 puff INHALATION RT-Q6H PRN 11/14/2312/02 Inhaler] Clopidogrel [Plavix] 75 mg PO DAILY 11/14/23 12/02/23 Colchicine 0.6 mg PO DAILY 11/14/23 12/02/23 Metoprolol Succinate (ER) [Toprol 50 mg PO DAILY 11/14/23 12/02/23 XL] Omeprazole 20 mg PO DAILY 11/14/23 12/02/23 allopurinoL [Zyloprim] 300 mg PO DAILY 11/14/23 12/02/23 Aspirin EC [Ecotrin Low Dose] 81 mg PO DAILY 12/02/23 12/02/23 Ondansetron [Zofran] 4 - 8 mg PO Q4HR PRN 12/02/23 12/02/23 Previous Rx's Medication Instructions Recorded Digoxin [Lanoxin] 125 mcg PO DAILY tab 01/01/17 Loperamide [Imodium] 2 mg PO QID PRN #20 cap 12/05/23 Allergies Allergy/AdvReac Type Severity Reaction Status Date / Time ampicillin [From Unasyn] AdvReac Severe Nausea & Verified 12/30/23 11:18 Vomiting sulbactam [From Unasyn] AdvReac Severe Nausea & Verified 12/30/23 11:18 Vomiting acetaminophen [From [place]] AdvReac Intermediate Nausea & Verified 12/30/23 11:18 Vomiting hydrocodone [From [place]] AdvReac Intermediate Nausea & Verified 12/30/23 11:18 Vomiting codeine AdvReac Nausea & Verified 12/30/23 11:18 [From Tylenol-Codeine #3] Vomiting morphine AdvReac nausea, Verified 12/30/23 11:18 vomiting, and confusion Review of Systems ROS Other: All systems not noted in ROS Statement are negative. <Key Mario - Last Filed: 12/30/23 11:21> ROS Other: All systems not noted in ROS Statement are negative. <Franklin Lopez - Last Filed: 12/30/23 14:53> ROS Statement: Those systems with pertinent positive or pertinent negative responses have been documented in the HPI. Review of Systems: CONST: Denies fever EYES: Denies blurry vision ENT: Denies nasal congestion C/V: Denies Chest pain RESP: Denies shortness of breath GI: Denies abdominal pain : Denies dysuria SKIN: Denies rash. MSK: Denies joint pain. NEURO: Denies headache (Franklin Lopez) Past Medical History Past Medical History: Asthma, Coronary Artery Disease (CAD), Cancer, Diabetes Mellitus, GERD/Reflux, Hypertension, Myocardial Infarction ([place]), Pneumonia, Thyroid Disorder Additional Past Medical History / Comment(s): NSTEMI in September 2016 with subsequent coronary artery bypass grafting x 1, BRAR to the LAD, in October 2016. Severe ischemic cardiomyopathy with estimated ejection fraction 25-30%. Pending AICD placement. Admitted for hypotension in 11-13-16. Remote history of left Breast cancer stage 4(1994) had mastectomy and radiation/chemo,had genetic testing done,was poisitve for BRCA 2 gene mutation, so had elective right mast ectomy done. 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 Salgado. She received 4 chemo tx, pne/sepsis Last Myocardial Infarction Date:: History of Any Multi-Drug Resistant Organisms: C-DIFF Date of last positivie culture/infection: 10/2016 MDRO Source:: stool Past Surgical History: Appendectomy, Breast Surgery, Cholecystectomy, Coronary Bypass/CABG, Heart Catheterization, Hysterectomy, Pacemaker, Tubal Ligation Additional Past Surgical History / Comment(s): LT BREAST WAS POSTIVE FOR CANCER STAGE 4 cancer-had masectomy. 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 PT TESTED POSIT [place] FOR BRCA 2 GENE.then 8 YEARS AGO HAD RT BREAST REMOVED (prophylactically). lt cataract removed, 10-07-16 CABG( 1 VESSEL), LT INTERNAL MAMMARY ARTERY TO LEFT ANT DESCENDING ARTERY. EVAN OOPHERECTOMY(PROPHYLATIC), LUNG NODULE REMOVED(CANCEROUS-lymhoma- AND RECEIVED SEVERAL CHEMO tx, several venous access devices since removed. Past Anesthesia/Blood Transfusion Reactions: No Reported Reaction Additional Past Anesthesia/Blood Transfusion Reaction / Comment(s): takes a bit to wake up after Type of Cardiac Device: Unknown Device Placement Date:: UNK Past Psychological History: No Psychological Hx Reported Smoking Status: Never smoker Past Alcohol Use History: None Reported Past Drug Use History: None Reported - Past Family History Mother Family Medical History: Diabetes Mellitus Additional Family Medical History / Comment(s): heart valve replacment Father Family Medical History: Cancer Additional Family Medical History / Comment(s): lung cancer Sister(s) Family Medical History: Cancer Additional Family Medical History / Comment(s): breast cancer <Key Mario - Last Filed: 12/30/23 11:21> General Exam Limitations: no limitations <Key Mario - Last Filed: 12/30/23 11:21> <Franklin Lopez - Last Filed: 12/30/23 14:53> - General Exam Comments Initial Comments: Visual Physical Exam Vital signs reviewed General: Well-appearing, nontoxic, no acute distress. Head: Normocephalic, atraumatic Eyes: PERRLA, EOMI ENT: Airway patent Chest: Nonlabored breathing Skin: No visual rash, normal skin tone Neuro: Alert and oriented 3 Musculoskeletal: No gross abnormalities (Key Mario) General: Appears in no acute distress. Afebrile HEAD: Normal with no signs of head trauma. EYES: PERRLA, EOMI, conjunctiva normal, no discharge. ENT: Hearing grossly intact, normal oropharynx. Dry mucous membranes. RESPIRATORY: Very mild end expiratory wheezing. No increased work of breathing. No hypoxia. C/V: Regular rate and rhythm. S1 and S2 auscultated, no edema, peripheral pulses 2+ and intact throughout ABD: Abd is soft, nontender, nondistended EXT: Normal range of motion, no obvious deformity SKIN: No rashes or lesions observed on exposed skin. NEURO: Alert and oriented x 4. Cranial nerves II-XII intact. No focal sensory or strength deficits. (Franklin Lopez) Course Vital Signs 12/30/23 12/30/23 12/30/23 11:16 14:17 14:26 Temperature 98.1 F Pulse Rate 99 98 102 H Respiratory 18 Rate Blood Pressure 117/69 O2 Sat by Pulse 98 Oximetry Medical Decision Making <Key Mario - Last Filed: 12/30/23 11:21> - Lab Data Result diagrams: 12/30/23 11:32 12/30/23 13:33 - EKG Data -: EKG Interpreted by Me <Franklin Lopez - Last Filed: 12/30/23 14:53> - Medical Decision Making I performed the QuickNote portion of this chart. Signed Key Mario PA-C. (Key Mario) Was pt. sent in by a medical professional or institution (KALA Wilson, NARCOTICS AGENT, urgent care, hospital, or senior care...) When possible be specific @ -No Did you speak to anyone other than the patient for history (EMS, parent, family, police, friend...)? What history was obtained from this source @ -No Did you review nursing and triage notes (agree or disagree)? Why? @ -I reviewed and agree with nursing and triage notes Were old charts reviewed (outside hosp., previous admission, EMS record, old EKG, old radiological studies, urgent care reports/EKG's, senior care records)? Report findings @ -No old charts were reviewed Differential Diagnosis (chest pain, altered mental status, abdominal pain women, abdominal pain men, vaginal bleeding, weakness, fever, dyspnea, syncope, headache, dizziness, GI bleed, back pain, seizure, CVA, palpatations, mental health, musculoskeletal)? @ -Differential Weakness: Hypoglycemia, shock, sepsis, hyponatremia, anemia, infection, GA, ETOH, adverse medicine reaction, overdose, stroke, this is not meant to be an all-inclusive list. EKG interpreted by me (3pts min.). @ -As above X-rays interpreted by me (1pt min.). @ -Chest x-ray reveals no obvious acute cardiopulmonary process. CT interpreted by me (1pt min.). @ -None done U/S interpreted by me (1pt. min.). @ -None done What testing was considered but not performed or refused? (CT, X-rays, U/S, labs)? Why? @ -None What meds were considered but not given or refused? Why? @ -None Did you discuss the management of the patient with other professionals (professionals i.e. , PA, NARCOTICS AGENT, lab, RT, psych nurse, high school social science teacher, senior information security engineer, teacher, sustainability officer, catalytic case operator)? Give summary @ -. I spoke with the admitting physician, her PCP Dr. Angeles who accepted the patient. Was smoking cessation discussed for >3mins.? @ -No Was critical care preformed (if so, how long)? @ -No Were there social determinants of health that impacted care today? How? (Homelessness, low income, unemployed, alcoholism, drug addiction, transportation, low edu. Level, literacy, decrease access to med. care, intermediate, rehab)? @ -No Was there de-escalation of care discussed even if they declined (Discuss DNR or withdrawal of care, Hospice)? DNR status @ -No What co-morbidities impacted this encounter? (DM, HTN, Smoking, COPD, CAD, Cancer, CVA, ARF, Chemo, Hep., AIDS, mental health diagnosis, sleep apnea, morbid obesity)? @ -Lung cancer currently on chemotherapy Was patient admitted / discharged? Hospital course, mention meds given and route, prescriptions, significant lab abnormalities, going to OR and other pertinent info. @ -Based on the patient's presentation and physical exam, presents emergency department complaining of generalized weakness after her second round of chemo which occurred approximately 5 days ago. Denies any fevers or chills. No known sick contacts. Presents for further evaluation. Vital signs are within acceptable limits. Patient is afebrile. We will obtain general workup. Patient will be given a low amount of maintenance fluids IV. She has very very mild wheezing bilaterally and we will attempt a breathing treatment to see if that improves some of her symptoms. She was in agreement this plan. Patient started as a quick note. I evaluated her when she was placed in room 21. Patient's labs remarkable for hypomagnesemia. Urine is still pending. Viral swabs negative. Magnesium was replenished. Patient has CKD which is within baseline. EKG showed no signs of acute ischemia. Chest x-ray unremarkable. On reevaluation, I discussed the results with the patient. She will be admitted to observation for weakness. She was in agreement this plan. Will continue with maintenance fluids, and consult oncology to evaluate the patient on her stay. She was in agreement this plan. I spoke with the admitting physician, her PCP Dr. Angeles who accepted the patient. Undiagnosed new problem with uncertain prognosis? @ -No Drug Therapy requiring intensive monitoring for toxicity (Heparin, Nitro, Insulin, Cardizem)? @ -No Were any procedures done? @ -No Diagnosis/symptom? @ -Weakness, hypomagnesemia in the setting of recent chemotherapy for cancer Acute, or Chronic, or Acute on Chronic? @ -Acute Uncomplicated (without systemic symptoms) or Complicated (systemic symptoms)? @ -Complicated Side effects of treatment? @ -None Exacerbation, Progression, or Severe Exacerbation] @ -No Poses a threat to life or bodily function? @ -Yes (Franklin Lopez) - Lab Data Lab Results 03/25/24 03/25/24 03/25/24 Range/Units 11:32 11:32 11:32 WBC 5.0 (3.8-10.6) k/uL RBC 3.71 L (3.80-5.40) m/uL Hgb 11.5 (11.4-16.0) gm/dL Hct 37.1 (34.0-46.0) % MCV 100.0 (80.0-100.0) fL MCH 31.0 (25.0-35.0) pg MCHC 31.0 (31.0-37.0) g/dL RDW 18.4 H (11.5-15.5) % Plt Count 188 (150-450) k/uL MPV 8.7 Neutrophils % 81 % Lymphocytes % 13 % Monocytes % 4 % Eosinophils % 1 % Basophils % 0 % Neutrophils # 4.1 (1.3-7.7) k/uL Lymphocytes # 0.6 L (1.0-4.8) k/uL Monocytes # 0.2 (0-1.0) k/uL Eosinophils # 0.1 (0-0.7) k/uL Basophils # 0.0 (0-0.2) k/uL Hypochromasia Moderate Anisocytosis Slight Macrocytosis Moderate PT 11.5 (10.0-12.5) sec INR 1.1 (<1.2) APTT 23.5 (22.0-30.0) sec Sodium 141 (137-145) mmol/L Potassium 5.4 H (3.5-5.1) mmol/L Chloride 105 (98-107) mmol/L Carbon Dioxide 25 (22-30) mmol/L Anion Gap 11 mmol/L BUN 49 H (7-17) mg/dL Creatinine 1.42 H (0.52-1.04) mg/dL Est GFR (CKD-EPI)AfAm 42 (>60 ml/min/1.73 sqM) Est GFR (CKD-EPI)NonAf 37 (>60 ml/min/1.73 sqM) Glucose 135 H (74-99) mg/dL Plasma Lactic Acid [place] (0.7-2.0) mmol/L Calcium 7.9 L (8.4-10.2) mg/dL Phosphorus 4.6 H (2.5-4.5) mg/dL Magnesium 1.3 L (1.6-2.3) mg/dL Total Bilirubin 1.7 H (0.2-1.3) mg/dL AST 82 H (14-36) U/L ALT 88 H (4-34) U/L Alkaline Phosphatase 113 (38-126) U/L Total Protein 7.7 (6.3-8.2) g/dL Albumin 4.3 (3.5-5.0) g/dL Influenza Type A (PCR) (Not Detectd) Influenza Type B (PCR) (Not Detectd) RSV (PCR) (Not Detectd) SARS-CoV-2 (PCR) (Not Detectd) 12/30/23 12/30/23 Range/Units 12:38 12:38 WBC (3.8-10.6) k/uL RBC (3.80-5.40) m/uL Hgb (11.4-16.0) gm/dL Hct (34.0-46.0) % MCV (80.0-100.0) fL MCH (25.0-35.0) pg MCHC (31.0-37.0) g/dL RDW (11.5-15.5) % Plt Count (150-450) k/uL MPV Neutrophils % % Lymphocytes % % Monocytes % % Eosinophils % % Basophils % % Neutrophils # (1.3-7.7) k/uL Lymphocytes # (1.0-4.8) k/uL Monocytes # (0-1.0) k/uL Eosinophils # (0-0.7) k/uL Basophils # (0-0.2) k/uL Hypochromasia Anisocytosis Macrocytosis PT (10.0-12.5) sec INR (<1.2) APTT (22.0-30.0) sec Sodium (137-145) mmol/L Potassium (3.5-5.1) mmol/L Chloride (98-107) mmol/L Carbon Dioxide (22-30) mmol/L Anion Gap mmol/L BUN (7-17) mg/dL Creatinine (0.52-1.04) mg/dL Est GFR (CKD-EPI)AfAm (>60 ml/min/1.73 sqM) Est GFR (CKD-EPI)NonAf (>60 ml/min/1.73 sqM) Glucose (74-99) mg/dL Plasma Lactic Acid [place] 0.9 (0.7-2.0) mmol/L Calcium (8.4-10.2) mg/dL Phosphorus (2.5-4.5) mg/dL Magnesium (1.6-2.3) mg/dL Total Bilirubin (0.2-1.3) mg/dL AST (14-36) U/L ALT (4-34) U/L Alkaline Phosphatase (38-126) U/L Total Protein (6.3-8.2) g/dL Albumin (3.5-5.0) g/dL Influenza Type A (PCR) Not Detected (Not Detectd) Influenza Type B (PCR) Not Detected (Not Detectd) RSV (PCR) Not Detected (Not Detectd) SARS-CoV-2 (PCR) Not Detected (Not Detectd) - EKG Data EKG Comments: 12-lead Electrocardiogram Interpretation Note EKG was reviewed and interpreted by myself. 12-lead ECG performed at 1307 is interpreted by me as revealing paced rhythm at a rate of 99 beats per minute. Right axis deviation. [place] interval is 164 ms, QRS duration is 108 ms, QTc is 379 ms.. There were no ST or T wave abnormalities to suggest myocardial ischemia or injury. R wave progression across the precordium was satisfactory. By my interpretation this EKG is non-diagnostic for acute ischemia. Relatively unchanged when compared with November 2023 EKG. (Franklin Lopez) Disposition <Key Mario - Last Filed: 12/30/23 11:21> Time of Disposition: 13:24 <Franklin Lopez - Last Filed: 12/30/23 14:53> Clinical Impression: Weakness, Hypomagnesemia Disposition: ADMITTED IP TO THIS HOSP Condition: Stable
--- NOTE | 2023-12-30 11:54 | XR ---
EXAMINATION TYPE: XR chest 2V DATE OF EXAM: 12/30/2023 COMPARISON: 11/14/2023 TECHNIQUE: PA and lateral views submitted. HISTORY: Weakness FINDINGS: The lungs are clear and there is no pneumothorax, pleural effusion, or focal pneumonia. Heart size normal and no overt failure. Osseous structures demonstrate hypertrophic and degenerative changes of the spine. Elevated right hemidiaphragm. Median sternotomy changes with cardiac device stable. Underl lisa COPD. Previous vertebral plasty suggested at the thoracolumbar junction. Surgical changes in the abdomen. IMPRESSION: 1. No acute process. 2. COPD with elevated right hemidiaphragm which can be associated with phrenic nerve palsy.
[2023-12-30 12:02] LABS: Anisocytosis Slight; Basophils % (A) 0 %; Eosinophils # (A) 0.1 k/uL (0-0.7); Eosinophils % (A) 1 %; HCT 37.1 % (34.0-46.0); HGB 11.5 gm/dL (11.4-16.0); Hypochromasia Moderate; Lymphocytes # (A) 0.6 k/uL (1.0-4.8); Lymphocytes % (A) 13 %; Macrocytosis Moderate; Mean Platelet Volume 8.7; Monocytes # (A) 0.2 k/uL (0-1.0); Monocytes % (A) 4 %; Neutrophils # (A) 4.1 k/uL (1.3-7.7); Neutrophils % (A) 81 %; Platelet Count 188 k/uL (150-450); RBC 3.71 m/uL (3.80-5.40); RDW 18.4 % (11.5-15.5)
[2023-12-30 12:16] LABS: INR 1.1 (<1.2); Partial Thromboplastin Time 23.5 sec (22.0-30.0); Prothrombin Time 11.5 sec (10.0-12.5)
[2023-12-30 12:39] LABS: ALT 88 U/L (4-34); AST 82 U/L (14-36); African American GFR (CKD) 42 (>60 ml/min/1.73 sqM); Albumin 4.3 g/dL (3.5-5.0); Alkaline Phosphatase 113 U/L (38-126); Anion Gap 11 mmol/L; Blood Urea Nitrogen 49 mg/dL (7-17); Calcium 7.9 mg/dL (8.4-10.2); Carbon Dioxide 25 mmol/L (22-30); Chloride 105 mmol/L (98-107); Glucose 135 mg/dL (74-99); Magnesium 1.3 mg/dL (1.6-2.3); Non-African American GFR(CKD) 37 (>60 ml/min/1.73 sqM); Phosphorus 4.6 mg/dL (2.5-4.5); Sodium 141 mmol/L (137-145); Total Bilirubin 1.7 mg/dL (0.2-1.3); Total Protein 7.7 g/dL (6.3-8.2)
[2023-12-30 12:42] LABS: Potassium 5.4 mmol/L (3.5-5.1)
[2023-12-30] MEDS: SODIUM CHLORIDE 0.9% 1,000 ML IV STA (12:54)
[2023-12-30] MEDS ORDERED: NALOXONE 0.4 MG/ML 1 ML VIAL IV PRN (13:31)
[2023-12-30] MEDS: KETOROLAC 15 MG/ML 1 ML VIAL IVP STA (13:46)
[2023-12-30] MEDS: MAGNESIUM SULFATE-D5W PMX 1 GM in DEXTROSE/WATER 1 100ML.BAG IVPB ONE (13:46)
[2023-12-30] MEDS: IPRATROPIUM-ALBUTEROL 3 ML NEB INHALATION STA (14:14)
[2023-12-30] MEDS: NYSTATIN 100,000 UNIT/ML SUSP 500,000 UNIT/5 ML CUP PO SCH (15:44)
[2023-12-30] MEDS ORDERED: ALBUTEROL HFA INHALER INHALATION PRN (19:44)
[2023-12-30] MEDS: DIPHENOX-ATROP 2.5-0.025 MG 1 EACH TAB PO SCH (20:41)
[2023-12-30] MEDS: metFORMIN 500 MG TAB PO SCH (20:41)
[2023-12-30] MEDS: GABAPENTIN 300 MG CAP PO SCH (20:41)
[2023-12-30 20:48] LABS: Glucose,Whole Blood 135 mg/dL (70-110)
[2023-12-31] MEDS: IBUPROFEN 400 MG TAB PO PRN (03:31)
[2023-12-31] MEDS: FUROSEMIDE 40 MG TAB PO SCH (08:40)
[2023-12-31] MEDS: allopurinoL 300 MG TAB PO SCH (08:41)
[2023-12-31] MEDS: LEVOTHYROXINE 50 MCG TAB PO SCH (08:41)
[2023-12-31] MEDS: lisinopriL 5 MG TAB PO SCH (08:41)
[2023-12-31] MEDS: ASPIRIN 81 MG PO SCH (08:41)
[2023-12-31] MEDS: PANTOPRAZOLE 40 MG TABLET PO SCH (08:42)
[2023-12-31] MEDS: CLOPIDOGREL 75 MG TAB PO SCH (08:42)
[2023-12-31] MEDS: DIGOXIN 125 MCG TAB PO SCH (08:42)
[2023-12-31] MEDS: METOPROLOL SUCCINATE (ER) 50 MG TAB.ER.24H PO SCH (08:47)
[2023-12-31] MEDS ORDERED: ATORVASTATIN 40 MG TAB PO SCH (09:00)
--- NOTE | 2023-12-31 09:02 | P.HPIM ---
History of Present Illness H&P Date: 12/31/23 This is a 73-year-old female patient of Dr. Chin who presents with complaints of weakness and diarrhea secondary to recent chemotherapy. Patient is currently under second round of chemotherapy for lung cancer. Patient reports last treatment was 5 days ago patient reports that she feels very weak and has no appetite. Patient has past medical history of asthma, COPD, diabetes mellitus, hypertension, AICD placement, lung cancer. Chest x-ray completed showing no acute process COPD with elevated right hemidiaphragm which can be associated with phrenic nerve palsy. Lab work revealing WBC of 5.0, hemoglobin 11.5, platelets 180 potassium elevated at 5.4 creatinine 1.42 and bun 49. Liver enzy mes slightly elevated ALT 88, AST 82 total bili 1.7. Patient was negative for influenza RSV COVID-19. Patient will be admitted patient started on IV fluid. Oncology service is consulted. Repeat labs ordered. Stool for C. diff ordered. Zofran when necessary ordered Review of Systems Please refer to HPI otherwise unremarkable Past Medical History Past Medical History: Asthma, Coronary Artery Disease (CAD), Cancer, Diabetes M ellitus, GERD/Reflux, Hypertension, Myocardial Infarction ([place]), Pneumonia, Thyroid Disorder Additional Past Medical History / Comment(s): NSTEMI in September 2016 with subsequent coronary artery bypass grafting x 1, BRAR to the LAD, in October 2016. Severe ischemic cardiomyopathy with estimated ejection fraction 25-30%. Pending AICD placement. Admitted for hypotension in 11-13-16. Remote history of left Breast cancer stage 4(1994) had mastectomy and radiation/chemo,had genetic testing done,was poisitve for BRCA 2 gene mutation, so had elective right mastectomy done. 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 Salgado. She received 4 chemo tx, pne/sepsis Last Myocardial Infarction Date:: History of Any Multi-Drug Resistant Organisms: C-DIFF Date of last positivie culture/infection: 10/2016 MDRO Source:: stool Past Surgical History: Appendectomy, Breast Surgery, Cholecystectomy, Coronary Bypass/CABG, Heart Catheterization, Hysterectomy, Pacemaker, Tubal Ligation Additional Past Surgical History / Comment(s): LT BREAST WAS POSTIVE FOR CANCER STAGE 4 cancer-had masectomy. 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 PT TESTED POSITIVE FOR BRCA 2 GENE.then 8 YEARS AGO HAD RT BREAST REMOVED (prophylactically). lt cataract removed, 10-07-16 CABG( 1 VESSEL), LT INTERNAL MAMMARY ARTERY TO LEFT ANT DESCENDING ARTERY. EVAN OOPHERECTOMY(PROPHYLATIC), LUNG NODULE REMOVED(CANCEROUS-lymhoma- AND RECEIVED SEVERAL CHEMO tx, several venous access devices since removed. Past Anesthesia/Blood Transfusion Reactions: No Reported Reaction Additional Past Anesthesia/Blood Transfusion Reaction / Comment(s): takes a bit to wake up after Type of Cardiac Device: Unknown Device Placement Date:: UNK Past Psychological History: No Psychological Hx Reported Smoking Status: Never smoker Past Alcohol Use History: None Reported Past Drug Use History: None Reported - Past Family History Mother Family Medical History: Diabetes Mellitus Additional Family Medical History / Comment(s): heart valve replacment Father Family Medical History: Cancer Additional Family Medical History / Comment(s): lung cancer Sister(s) Family Medical History: Cancer Additional Family Medical History / Comment(s): breast cancer Medications and Allergies Home Medications Medication Instructions Recorded Confirmed Type Digoxin [Lanoxin] 125 mcg PO DAILY tab 01/01/17 12/30/23 Rx Atorvastatin [Lipitor] 40 mg PO DAILY 01/01/18 12/30/23 History Levothyroxine Sodium [Synthroid] 50 mcg PO DAILY 01/01/18 12/30/23 History metFORMIN HCL [Glucophage] 500 mg PO BID 05/09/19 12/30/23 History Gabapentin [Neurontin] 300 mg PO BID 09/17/23 12/30/23 History Albuterol Inhaler [Ventolin Hfa 1 - 2 puff INHALATION RT-Q6H PRN 11/14/23 History Inhaler] Clopidogrel [Plavix] 75 mg PO DAILY 11/14/23 12/30/23 History Colchicine 0.6 mg PO DAILY 11/14/23 12/30/23 History Metoprolol Succinate (ER) [Toprol 50 mg PO DAILY 11/14/23 12/30/23 History XL] Omeprazole 20 mg PO DAILY 11/14/23 12/30/23 History allopurinoL [Zyloprim] 300 mg PO DAILY 11/14/23 12/30/23 History Aspirin EC [Ecotrin Low Dose] 81 mg PO DAILY 12/02/23 12/30/23 History Ondansetron [Zofran] 4 - 8 mg PO Q4HR PRN 12/02/23 12/30/23 History Loperamide [Imodium] 2 mg PO QID PRN #20 cap 12/05/23 12/30/23 Rx Diphenox-Atrop 2.5-0.025 mg 2 tab PO BID 12/30/23 12/30/23 History [Lomotil] Furosemide [Lasix] 40 mg PO DAILY 12/30/23 12/30/23 History lisinopriL [Zestril] 5 mg PO DAILY 12/30/23 12/30/23 History Allergies Allergy/AdvReac Type Severity Reaction Status Date / Time ampicillin [From Unasyn] AdvReac Severe Nausea & Verified 12/30/23 16:41 Vomiting sulbactam [From Unasyn] AdvReac Severe Nausea & Verified 12/30/23 16:41 Vomiting acetaminophen [From [place]] AdvReac Intermediate Nausea & Verified 12/30/23 16:41 Vomiting hydrocodone [From [place]] AdvReac Intermediate Nausea & Verified 12/30/23 16:41 Vomiting codeine AdvReac Nausea & Verified 12/30/23 16:41 [From Tylenol-Codeine #3] Vomiting morphine AdvReac nausea, Verified 12/30/23 16:41 vomiting, and confusion Physical Exam Vitals: Vital Signs Temp Pulse Resp BP Pulse Ox 12/31/23 08:47 105 H 18 108/68 97 12/31/23 06:39 97.9 F 101 H 13 96/57 95 12/31/23 03:34 112 H 19 111/62 98 12/31/23 02:04 112 H 16 117/72 96 12/31/23 00:55 115 H 18 12/30/23 22:00 109 H 16 118/60 96 12/30/23 21:07 98.3 F 110 H 17 126/66 100 12/30/23 20:13 99.1 F 12/30/23 14:26 102 H 12/30/23 14:17 98 12/30/23 11:16 98.1 F 99 18 117/69 98 Head normocephalic Neck supple Lungs clear to auscultation bilaterally no wheezing or crackles Heart regular rate and rhythm S1-S2, no rub or gallop Abdomen is soft nontender nondistended positive bowel sounds no hepatosplenom egaly Extremities no edema Neuro alert and orientated to 3 Results CBC & Chem 7: 12/30/23 11:32 12/30/23 13:33 Labs: Abnormal Lab Results - Last 24 Hours (Table) 12/30/23 12/30/23 12/30/23 Range/Units 11:32 11:32 20:47 RBC 3.71 L (3.80-5.40) m/uL RDW 18.4 H (11.5-15.5) % Lymphocytes # 0.6 L (1.0-4.8) k/uL Potassium 5.4 H (3.5-5.1) mmol/L BUN 49 H (7-17) mg/dL Creatinine 1.42 H (0.52-1.04) mg/dL Glucose 135 H (74-99) mg/dL POC Glucose (mg/dL) 135 H (70-110) mg/dL Calcium 7.9 L (8.4-10.2) mg/dL Phosphorus 4.6 H (2.5-4.5) mg/dL Magnesium 1.3 L (1.6-2.3) mg/dL Total Bilirubin 1.7 H (0.2-1.3) mg/dL AST 82 H (14-36) U/L ALT 88 H (4-34) U/L Assessment and Plan Assessment: 1. Weakness and diarrhea secondary to chemotherapy 2. Squamous cell carcinoma on receiving chemotherapy stage III non-small cell lung cancer 3. History of COPD 4. History of autologous stem cell transplant 5. History of large B-cell lymphoma 6. History of chronic kidney disease 7. History of ischemic cardiomyopathy status post AICD 8. History of coronary artery disease 9. History of diabetes mellitus 2 DVT prophylaxis SCDs GI prophylaxis Protonix Oncology service is consulted Stool for C. diff ordered Repeat labs ordered Time with Patient: Greater than 30 (Greater than 60% of the total time spent in counseling and coordination of care)
[2023-12-31] MEDS: COLCHICINE 0.6 MG EACH PO SCH (10:14)
[2023-12-31] MEDS: SODIUM CHLORIDE 0.9% 1,000 ML IV SCH (12:33)
[2023-12-31] MEDS: ONDANSETRON 4 MG/2 ML VIAL IVP PRN (13:50)
[2023-12-31 14:24] LABS: Appearance,Urine Clear (Clear); Bacteria,Urine Rare /hpf; Bilirubin,Urine Negative (Negative); Blood,Urine Negative (Negative); Color,Urine Colorless; Glucose,Urine (UA) 3+ (Negative); Ketones,Urine Negative (Negative); Leukocyte Esterase,Urine Trace (Negative); Mucus,Urine Few /hpf; Nitrite,Urine Negative (Negative); Protein,Urine Trace (Negative); RBC,Urine 1 /hpf (0-5); Specific Gravity,Urine 1.013 (1.001-1.035); Squamous Epithelial Cell,Urine 4 /hpf (0-4); Urobilinogen,Urine <2.0 mg/dL (<2.0); WBC,Urine 2 /hpf (0-5)
[2023-12-31 15:50] LABS: Basophils # (A) 0.02 X 10*3/uL (0.00-0.10); Eosinophils # (A) 0 X 10*3/uL (0.04-0.35); Eosinophils % (A) 0 %; HCT 32.4 % (37.2-46.3); HGB 10.2 g/dL (12.0-15.0); Lymphocytes # (A) 0.64 X 10*3/uL (0.90-5.00); Lymphocytes % (A) 32.5 %; MCH 30.8 pg (27.0-32.0); MCHC 31.5 g/dL (32.0-37.0); MCV 97.9 FL (80.0-97.0); Mean Platelet Volume 11.4 FL (9.5-12.2); Monocytes # (A) 0.11 X 10*3/uL (0.20-1.00); Monocytes % (A) 5.6 %; NRBC Per 100 WBC 0 X 10*3/uL (0.00-0.01); Neutrophils # (A) 1.18 X 10*3/uL (1.80-7.70); Neutrophils % (A) 59.9 %; Platelet Count 182 X 10*3/uL (140-440); RBC 3.31 X 10*6/uL (4.10-5.20); RDW 18.8 % (11.5-14.5); WBC 1.97 X 10*3/uL (4.50-10.00)
[2023-12-31 15:55] LABS: ALT 61 U/L (8-44); AST 43 U/L (13-35); Albumin 3.9 g/dL (3.8-4.9); Albumin/Globulin Ratio 1.44 Ratio (1.60-3.17); Alkaline Phosphatase 117 U/L (41-126); BUN/Creat Ratio 25.75 Ratio (12.00-20.00); Blood Urea Nitrogen 30.9 mg/dL (9.0-27.0); Carbon Dioxide 23.7 mmol/L (21.6-31.8); Chloride 103 mmol/L (96-109); Globulin 2.7 g/dL (1.6-3.3); Glucose 161 mg/dL (70-110); Magnesium 1.6 mg/dL (1.5-2.4); Potassium 4.2 mmol/L (3.5-5.5); Sodium 141 mmol/L (135-145); Total Protein 6.6 g/dL (6.2-8.2)
[2023-12-31 17:05] LABS: Glucose,Whole Blood 139 mg/dL (70-110)
[2023-12-31] MEDS ORDERED: ZINC OXIDE PASTE (Z-GUARD) 1 APPLIC TOPICAL PRN (18:22)
--- NOTE | 2023-12-31 19:02 | P.CONS ---
History of Present Illness - Reason for Consult Consult date: 12/31/23 lung cancer Requesting physician: Franklin Lopez - Chief Complaint weakness, diarrhea - History of Present Illness Ms. 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 She had been in [place], where she had initially intended to receive treatment for her lung cancer, but had difficulty establishing care at [facility]. [facility] she was [facility] with COVID infection. She completed cycle 2 of 1 of neoadjuvant carboplatin/paclitaxel/Keytruda on 12/26/2023. Patient presented to the emergency room with complaints of progressing generalized weakness and diarrhea s/p cycle 2 of treatment. Patient reports she was taking prescribed Lomotil with some improvement in diarrhea but had decreased oral intake due to nausea and abdominal discomfort causing her to present to the emergency room for further evaluation. She also reports dizziness, which is worsened upon standing. Also complaining of bodyaches and oral irritation, but states oral discomfort has improved since being diagnosed with thrush and starting Kools solution. Upon presentation chest x-ray was negative for acute cardiopulmonary processes. Patient is afebrile. C. difficile testing has been ordered. CBC showed WBC 5.0, hemoglobin 11.5, platelets 180,000. Creatinine 1.42, GFR 37. Viral panel negative. AST 82, ALT 88, bilirubin 1.7. Review of Systems 10 point ROS is negative except as stated in the HPI Past Medical History Past Medical History: Asthma, Coronary Artery Disease (CAD), Cancer, Diabetes Mellitus, GERD/Reflux, Hypertension, Myocardial Infarction ([place]), Pneumonia, Thy roid Disorder Additional Past Medical History / Comment(s): NSTEMI in September 2016 with subsequent coronary artery bypass grafting x 1, BRAR to the LAD, in October 2016. Severe ischemic cardiomyopathy with estimated ejection fraction 25-30%. Pending AICD placement. Admitted for hypotension in 11-13-16. Remote history of left Breast cancer stage 4(1994) had mastectomy and radiation/chemo,had genetic testing done,was poisitve for BRCA 2 gene mutation, so had elective right mastectomy done. Left upper lobe lung nodule positive for B-lymphoma was biopsied at [facility], and left upper lobe was resected by Dr. Salgado. She received 4 chemo tx, pne/sepsis Last Myocardial Infarction Date:: History of Any Multi-Drug Resistant Organisms: C-DIFF Year Discovered:: 10/2016 MDRO Source:: stool Past Surgical History: Appendectomy, Breast Surgery, Cholecystectomy, Coronary Bypass/CABG, Heart Catheterization, Hysterectomy, Pacemaker, Tubal Ligation Additional Past Surgical History / Comment(s): LT BREAST WAS POSTIVE FOR CANCER STAGE 4 cancer-had masectomy. 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 PT TESTED POSITIVE FOR BRCA 2 GENE.then 8 YEARS AGO HAD RT BREAST REMOVED (prophylactically). lt cataract removed, 10-07-16 CABG( 1 VESSEL), LT INTERNAL MAMMARY ARTERY TO LEFT ANT DESCENDING ARTERY. EVAN OOPHERECTOMY(PROPHYLATIC), L KOREY NODULE REMOVED(CANCEROUS-lymhoma- AND RECEIVED SEVERAL CHEMO tx, several venous access devices since removed. Past Anesthesia/Blood Transfusion Reactions: No Reported Reaction Additional Past Anesthesia/Blood Transfusion Reaction / Comm: takes a bit to wake up after Type of Cardiac Device: Unknown Device Placement Date:: UNK Past Psychological History: No Psychological Hx Reported Smoking Status: Never smoker Past Alcohol Use History: None Reported Past Drug Use History: None Reported - Past Family History Mother Family Medical History: Diabetes Mellitus Additional Family Medical History / Comment(s): heart valve replacment Father Family Medical History: Cancer Additional Family Medical History / Comment(s): lung cancer Sister(s) Family Medical History: Cancer Additional Family Medical History / Comment(s): breast cancer Medications and Allergies Home Medications Medication Instructions Recorded Confirmed Type Digoxin [Lanoxin] 125 mcg PO DAILY tab 01/01/17 12/30/23 Rx Atorvastatin [Lipitor] 40 mg PO DAILY 01/01/18 12/30/23 History Levothyroxine Sodium [Synthroid] 50 mcg PO DAILY 01/01/18 12/30/23 History metFORMIN HCL [Glucophage] 500 mg PO BID 05/09/19 12/30/23 History Gabapentin [Neurontin] 300 mg PO BID 09/17/23 12/30/23 History Albuterol Inhaler [Ventolin Hfa 1 - 2 puff INHALATION RT-Q6H PRN 11/14/23 12/30/23 History Inhaler] Clopidogrel [Plavix] 75 mg PO DAILY 11/14/23 12/30/23 History Colchicine 0.6 mg PO DAILY 11/14/23 12/30/23 History Metoprolol Succinate (ER) [Toprol 50 mg PO DAILY 11/14/23 12/30/23 History XL] Omeprazole 20 mg PO DAILY 11/14/23 12/30/23 History allopurinoL [Zyloprim] 300 mg PO DAILY 11/14/23 12/30/23 History Aspirin EC [Ecotrin Low Dose] 81 mg PO DAILY 12/02/23 12/30/23 History Ondansetron [Zofran] 4 - 8 mg PO Q4HR PRN 12/02/23 12/30/23 History Loperamide [Imodium] 2 mg PO QID PRN #20 cap 12/05/23 12/30/23 Rx Diphenox-Atrop 2.5-0.025 mg 2 tab PO BID 12/30/23 12/30/23 History [Lomotil] Furosemide [Lasix] 40 mg PO DAILY 12/30/23 12/30/23 History lisinopriL [Zestril] 5 mg PO DAILY 12/30/23 12/30/23 History Allergies Allergy/AdvReac Type Severity Reaction Status Date / Time ampicillin [From Unasyn] AdvReac Severe Nausea & Verified 12/30/23 16:41 Vomiting sulbactam [From Unasyn] AdvReac Severe Nausea & Verified 12/30/23 16:41 Vomiting acetaminophen [From [place]] AdvReac Intermediate Nausea & Verified 12/30/23 16:41 Vomiting hydrocodone [From [place]] AdvReac Intermediate Nausea & Verified 12/30/23 16:41 Vomiting codeine AdvReac Nausea & Verified 12/30/23 16:41 [From Tylenol-Codeine #3] Vomiting morphine AdvReac nausea, Verified 12/30/23 16:41 vomiting, and confusion Physical Exam Vitals: Vital Signs Temp Pulse Pulse Resp BP BP Pulse Ox 12/31/23 11:51 98.1 F 101 H 16 101/65 94 L 12/31/23 11:30 102 H 20 104/64 97 12/31/23 08:47 105 H 18 108/68 97 12/31/23 06:39 97.9 F 101 H 13 96/57 95 12/31/23 03:34 112 H 19 111/62 98 12/31/23 02:04 112 H 16 117/72 96 12/31/23 00:55 115 H 18 12/30/23 22:00 109 H 16 118/60 96 12/30/23 21:07 98.3 F 110 H 17 126/66 100 12/30/23 20:13 99.1 F 12/30/23 14:26 102 H 12/30/23 14:17 98 - Constitutional General appearance: average body habitus, no acute distress - EENT Eyes: anicteric sclerae, EOMI ENT: hearing grossly normal - Respiratory Respiratory: bilateral: CTA - Cardiovascular Rhythm: regular Heart sounds: normal: S1, S2 - Gastrointestinal diffuse abd tenderness, more noted in periumbilical region. No guarding on exam General gastrointestinal: hyperactive bowel sounds, tenderness - Integumentary Integumentary: no cyanotic, no jaundiced - Neurologic Neurologic: CNII-XII intact - Musculoskeletal Musculoskeletal: generalized weakness, strength equal bilaterally - Psychiatric Psychiatric: A&O x's 3 Results CBC & Chem 7: 12/31/23 10:38 12/31/23 10:38 Labs: Abnormal Lab Results - Last 24 Hours (Table) 12/30/23 12/30/23 Range/Units 11:32 20:47 Potassium 5.4 H (3.5-5.1) mmol/L BUN 49 H (7-17) mg/dL Creatinine 1.42 H (0.52-1.04) mg/dL Glucose 135 H (74-99) mg/dL POC Glucose (mg/dL) 135 H (70-110) mg/dL Calcium 7.9 L (8.4-10.2) mg/dL Phosphorus 4.6 H (2.5-4.5) mg/dL Magnesium 1.3 L (1.6-2.3) mg/dL Total Bilirubin 1.7 H (0.2-1.3) mg/dL AST 82 H (14-36) U/L ALT 88 H (4-34) U/L Chest x-ray: report reviewed Assessment and Plan (1) Weakness Current Visit: Yes Status: Acute Priority: High Code(s): R53.1 - WEAKNESS SNOMED Code(s): 59179784 (2) Diarrhea Current Visit: Yes Status: Acute Priority: High Code(s): R19.7 - DIARRHEA, UNSPECIFIED SNOMED Code(s): 43452630 (3) Squamous cell carcinoma of lung, stage III Current Visit: Yes Status: Acute Priority: High Code(s): C34.90 - MALIGNANT NEOPLASM OF UNSP PART OF UNSP BRONCHUS OR LUNG SNOMED Code(s): 710142899 Plan: Diarrhea, nausea, decreased oral intake: Presented with generalized weakness, nausea, decreased oral intake and diarrhea. Denies blood in stool/melena. Denies fever and chills. She reports taking lomotil with minor improvement in symptoms -C. difficile testing has been ordered. Patient afebrile. CBC stable, WBC 5.0, hemoglobin 11.5, platelets 180,000. Creatinine 1.42, GFR 37. Viral panel negative. AST 82, ALT 88, bilirubin 1.7 -C-diff negative. Scheduled and prn anti-diarrheals ordered -Continue IV hydration and supportive medications Stage IIIA non-small cell lung cancer: -Diagnosed in late September 2023 with recommendation for chemoimmunotherapy -Initially had planned to receive treatment in [place], but difficulty establishing at [facility] -Completed cycle 2 of carboplatin/paclitaxel/pembrolizumab on 12/26/23 -Counts stable -Will schedule clinic f/u upon discharge. Will need to discuss dose reduction due to treatment intolerance despite aggressive supportive care management Doctor attests: I performed a history and physical examination of this patient, developed impression and plan of care. Discussed with dictator. I agree with dictators note, documented as a scribe.
[2023-12-31 21:52] LABS: Glucose,Whole Blood 145 mg/dL (70-110)
[2024-01-01 07:28] LABS: Glucose,Whole Blood 116 mg/dL (70-110)
--- NOTE | 2024-01-01 09:35 | P.HPIM ---
History of Present Illness H&P Date: 12/30/23 Perla Kim, is a 73-year-old female patient of Dr. Chin who presents with complaints of weakness and diarrhea secondary to recent chemotherapy. Patient is currently under second round of chemotherapy for lung cancer. Patient reports last treatment was 5 days ago patient reports that she feels very weak and has no appetite. Patient has past medical history of asthma, COPD, diabetes mellitus, hypertension, AICD placement, lung cancer. Chest x-ray completed showing no acute process COPD with elevated right hemidiaphragm which can be associated with phrenic nerve palsy. Lab work revealing WBC of 5.0, hemoglobin 11.5, platelets 180 potassium elevated at 5.4 creatinine 1.42 and bun 49. Liver enzymes slightly elevated ALT 88, AST 82 total bili 1.7. Patient was negative for influenza RSV COVID-19. Patient will be admitted patient started on IV fluid. Oncology service is consulted. Repeat labs ordered. Stool for C. diff ordered. Zofran when necessary ordered Past Medical History Past Medical History: Asthma, Coronary Artery Disease (CAD), Cancer, Diabetes Mellitus, GERD/Reflux, Hypertension, Myocardial Infarction ([place]), Pneumonia, Thyroid Disorder Additional Past Medical History / Comment(s): NSTEMI in September 2016 with subsequent coronary artery bypass grafting x 1, BRAR to the LAD, in October 2016. Severe ischemic cardiomyopathy with estimated ejection fraction 25-30%. Pending AICD placement. Admitted for hypotension in 11-13-16. Remote history of left Breast cancer stage 4(1994) had mastectomy and radiation/chemo,had genetic testing done,was poisitve for BRCA 2 gene mutation, so had elective right mastectomy done. Left upper lobe lung nodule positive for B-lymphoma was biopsied at [facility], and left upper lobe was resected by Dr. Salgado. She received 4 chemo tx, pne/sepsis Last Myocardial Infarction Date:: History of Any Multi-Drug Resistant Organisms: C-DIFF Date of last positivie culture/infection: 10/2016 MDRO Source:: stool Past Surgical History: Appendectomy, Breast Surgery, Cholecystectomy, Coronary Bypass/CABG, Heart Catheterization, Hysterectomy, Pacemaker, Tubal Ligation Additional Past Surgical History / Comment(s): LT BREAST WAS POSTIVE FOR CANCER STAGE 4 cancer-had masectomy. 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 PT TESTED POSITIVE FOR BRCA 2 GENE.then 8 YEARS AGO HAD RT BREAST REMOVED (prophylactically). lt cataract removed, 10-07-16 CABG( 1 VESSEL), LT INTERNAL MAMMARY ARTERY TO LEFT ANT DESCENDING ARTERY. EVAN OOPHERECTOMY(PROPHYLATIC), LUNG NODULE REMOVED(CANCEROUS-lymhoma- AND RECEIVED SEVERAL CHEMO tx, several venous access devices since removed. Past Anesthesia/Blood Transfusion Reactions: No Reported Reaction Additional Past Anesthesia/Blood Transfusion Reaction / Comment(s): takes a bit to wake up after Type of Cardiac Device: Unknown Device Placement Date:: UNK Past Psychological History: No Psychological Hx Reported Smoking Status: Never smoker Past Alcohol Use History: None Reported Past Drug Use History: None Reported - Past Family History Mother Family Medical History: Diabetes Mellitus Additional Family Medical History / Comment(s): heart valve replacment Father Family Medical History: Cancer Additional Family Medical History / Comment(s): lung cancer Sister(s) Family Medical History: Cancer Additional Family Medical History / Comment(s): breast cancer Medications and Allergies Home Medications Medication Instructions Recorded Confirmed Type Digoxin [Lanoxin] 125 mcg PO DAILY tab 01/01/17 12/30/23 Rx Atorvastatin [Lipitor] 40 mg PO DAILY 01/01/18 12/30/23 History Levothyroxine Sodium [Synthroid] 50 mcg PO DAILY 01/01/18 12/30/23 History metFORMIN HCL [Glucophage] 500 mg PO BID 05/09/19 12/30/23 History Gabapentin [Neurontin] 300 mg PO BID 09/17/23 12/30/23 History Albuterol Inhaler [Ventolin Hfa 1 - 2 puff INHALATION RT-Q6H PRN 11/14/23 12/30/23 History Inhaler] Clopidogrel [Plavix] 75 mg PO DAILY 11/14/23 12/30/23 History Colchicine 0.6 mg PO DAILY 11/14/23 12/30/23 History Metoprolol Succinate (ER) [Toprol 50 mg PO DAILY 11/14/23 12/30/23 History XL] Omeprazole 20 mg PO DAILY 11/14/23 12/30/23 History allopurinoL [Zyloprim] 300 mg PO DAILY 11/14/23 12/30/23 History Aspirin EC [Ecotrin Low Dose] 81 mg PO DAILY 12/02/23 12/30/23 History Ondansetron [Zofran] 4 - 8 mg PO Q4HR PRN 12/02/23 12/30/23 History Loperamide [Imodium] 2 mg PO QID PRN #20 cap 12/05/23 12/30/23 Rx Diphenox-Atrop 2.5-0.025 mg 2 tab PO BID 12/30/23 12/30/23 History [Lomotil] Furosemide [Lasix] 40 mg PO DAILY 12/30/23 12/30/23 History lisinopriL [Zestril] 5 mg PO DAILY 12/30/23 12/30/23 History Allergies Allergy/AdvReac Type Severity Reaction Status Date / Time ampicillin [From Unasyn] AdvReac Severe Nausea & Verified 12/30/23 16:41 Vomiting sulbactam [From Unasyn] AdvReac Severe Nausea & Verified 12/30/23 16:41 Vomiting acetaminophen [From [place]] AdvReac Intermediate Nausea & Verified 12/30/23 16:41 Vomiting hydrocodone [From [place]] AdvReac Intermediate Nausea & Verified 12/30/23 16:41 Vomiting codeine AdvReac Nausea & Verified 12/30/23 16:41 [From Tylenol-Codeine #3] Vomiting morphine AdvReac nausea, Verified 12/30/23 16:41 vomiting, and confusion Physical Exam Vitals: Vital Signs Temp Pulse Resp BP Pulse Ox 12/30/23 14:26 102 H 12/30/23 14:17 98 12/30/23 11:16 98.1 F 99 18 117/69 98 Intake and Output 12/29/23 12/30/23 12/30/23 22:59 06:59 14:59 Other: Weight 60.781 kg Head normocephalic Neck supple Lungs clear to auscultation bilaterally no wheezing or crackles Heart regular rate and rhythm S1-S2, no rub or gallop Abdomen is soft nontender nondistended positive bowel sounds no hepatosplenomegaly Extremities no edema Neuro alert and orientated to 3 Results CBC & Chem 7: 12/30/23 11:32 12/30/23 13:33 Labs: Abnormal Lab Results - Last 24 Hours (Table) 12/30/23 12/30/23 Range/Units 11:32 11:32 RBC 3.71 L (3.80-5.40) m/uL RDW 18.4 H (11.5-15.5) % Lymphocytes # 0.6 L (1.0-4.8) k/uL Potassium 5.4 H (3.5-5.1) mmol/L BUN 49 H (7-17) mg/dL Creatinine 1.42 H (0.52-1.04) mg/dL Glucose 135 H (74-99) mg/dL Calcium 7.9 L (8.4-10.2) mg/dL Phosphorus 4.6 H (2.5-4.5) mg/dL Magnesium 1.3 L (1.6-2.3) mg/dL Total Bilirubin 1.7 H (0.2-1.3) mg/dL AST 82 H (14-36) U/L ALT 88 H (4-34) U/L Assessment and Plan Plan: 1. Weakness and diarrhea secondary to chemotherapy 2. Squamous cell carcinoma on receiving chemotherapy stage III non-small cell lung cancer 3. History of COPD 4. History of autologous stem cell transplant 5. History of large B-cell lymphoma 6. History of chronic kidney disease 7. History of ischemic cardiomyopathy status post AICD 8. History of coronary artery disease 9. History of diabetes mellitus 2 DVT prophylaxis SCDs GI prophylaxis Protonix Oncology service is consulted Stool for C. diff ordered Repeat labs ordered
[2024-01-01 12:34] LABS: Glucose,Whole Blood 128 mg/dL (70-110)
--- NOTE | 2024-01-01 13:20 | P.PN ---
Subjective Progress Note Date: 01/01/24 Perla Kim, is a 73-year-old female patient of Dr. Chin who presents with complaints of weakness and diarrhea secondary to recent chemotherapy. Patient is currently under second round of chemotherapy for lung cancer. Patient reports last treatment was 5 days ago patient reports that she feels very weak and has no appetite. Patient has past medical history of asthma, COPD, diabetes mellitus, hypertension, AICD placement, lung cancer. Chest x-ray completed showing no acute process COPD with elevated right hemidiaphragm which can be associated with phrenic nerve palsy. Lab work revealing WBC of 5.0, hemoglobin 11.5, platelets 180 potassium elevated at 5.4 creatinine 1.42 and bun 49. Liver enzymes slightly elevated ALT 88, AST 82 total bili 1.7. Patient was negative for influenza RSV COVID-19. Patient will be admitted patient started on IV fluid. Oncology service is consulted. Repeat labs ordered. Stool for C. diff ordered. Zofran when necessary ordered On 01/02/2024 patient is alert and oriented x4. reports improvement with diarrhea. complaints of generalized weakness. Pt/Ot services consulted. oncology services following. Objective - Vital Signs Vital signs: Vital Signs Temp 97.8 F 01/01/24 08:19 Pulse 107 H 01/01/24 08:19 Resp 19 01/01/24 08:19 BP 108/70 01/01/24 08:19 Pulse Ox 96 01/01/24 08:19 FiO2 Intake & Output 12/31/23 01/01/24 01/01/24 18:59 06:59 18:59 Intake Total 360 590 Output Total 600 Balance -240 590 Weight 60.781 kg Intake: Oral 360 590 Output: Urine 600 Other: Voiding Method Bedside Commode Bedside Commode # Voids 4 # Bowel Movements 5 2 - Exam Head normocephalic Neck supple Lungs clear to auscultation bilaterally no wheezing or crackles Heart regular rate and rhythm S1-S2, no rub or gallop Abdomen is soft nontender nondistended positive bowel sounds no hepatosplenomegaly Extremities no edema Neuro alert and orientated to 3 - Labs CBC & Chem 7: 12/31/23 10:38 12/31/23 10:38 Labs: Abnormal Lab Results - Last 24 Hours (Table) 12/31/23 12/31/23 12/31/23 Range/Units 10:38 10:38 12:20 WBC 1.97 L (4.50-10.00) X 10*3/uL RBC 3.31 L (4.10-5.20) X 10*6/uL Hgb 10.2 L (12.0-15.0) g/dL Hct 32.4 L (37.2-46.3) % MCV 97.9 H (80.0-97.0) FL MCHC 31.5 L (32.0-37.0) g/dL RDW 18.8 H (11.5-14.5) % Neutrophils # 1.18 L (1.80-7.70) X 10*3/uL Lymphocytes # 0.64 L (0.90-5.00) X 10*3/uL Monocytes # 0.11 L (0.20-1.00) X 10*3/uL Eosinophils # 0 L (0.04-0.35) X 10*3/uL Anion Gap 14.30 H (4.00-12.00) mmol/L BUN 30.9 H (9.0-27.0) mg/dL Est GFR (CKD-EPI) 48 L (>=60) BUN/Creatinine Ratio 25.75 H (12.00-20.00) Ratio Glucose 161 H (70-110) mg/dL POC Glucose (mg/dL) (70-110) mg/dL AST 43 H (13-35) U/L ALT 61 H (8-44) U/L Albumin/Globulin Ratio 1.44 L (1.60-3.17) Ratio Urine Protein Trace H (Negative) Urine Glucose (UA) 3+ H (Negative) Ur Leukocyte Esterase Trace H (Negative) Urine Bacteria Rare H (None) /hpf Urine Mucus Few H (None) /hpf 12/31/23 12/31/23 01/01/24 Range/Units 17:03 21:32 07:26 WBC (4.50-10.00) X 10*3/uL RBC (4.10-5.20) X 10*6/uL Hgb (12.0-15.0) g/dL Hct (37.2-46.3) % MCV (80.0-97.0) FL MCHC (32.0-37.0) g/dL RDW (11.5-14.5) % Neutrophils # (1.80-7.70) X 10*3/uL Lymphocytes # (0.90-5.00) X 10*3/uL Monocytes # (0.20-1.00) X 10*3/uL Eosinophils # (0.04-0.35) X 10*3/uL Anion Gap (4.00-12.00) mmol/L BUN (9.0-27.0) mg/dL Est GFR (CKD-EPI) (>=60) BUN/Creatinine Ratio (12.00-20.00) Ratio Glucose (70-110) mg/dL POC Glucose (mg/dL) 139 H 145 H 116 H (70-110) mg/dL AST (13-35) U/L ALT (8-44) U/L Albumin/Globulin Ratio (1.60-3.17) Ratio Urine Protein (Negative) Urine Glucose (UA) (Negative) Ur Leukocyte Esterase (Negative) Urine Bacteria (None) /hpf Urine Mucus (None) /hpf 01/01/24 Range/Units 12:32 WBC (4.50-10.00) X 10*3/uL RBC (4.10-5.20) X 10*6/uL Hgb (12.0-15.0) g/dL Hct (37.2-46.3) % MCV (80.0-97.0) FL MCHC (32.0-37.0) g/dL RDW (11.5-14.5) % Neutrophils # (1.80-7.70) X 10*3/uL Lymphocytes # (0.90-5.00) X 10*3/uL Monocytes # (0.20-1.00) X 10*3/uL Eosinophils # (0.04-0.35) X 10*3/uL Anion Gap (4.00-12.00) mmol/L BUN (9.0-27.0) mg/dL Est GFR (CKD-EPI) (>=60) BUN/Creatinine Ratio (12.00-20.00) Ratio Glucose (70-110) mg/dL POC Glucose (mg/dL) 128 H (70-110) mg/dL AST (13-35) U/L ALT (8-44) U/L Albumin/Globulin Ratio (1.60-3.17) Ratio Urine Protein (Negative) Urine Glucose (UA) (Negative) Ur Leukocyte Esterase (Negative) Urine Bacteria (None) /hpf Urine Mucus (None) /hpf Assessment and Plan Assessment: 1. Weakness and diarrhea secondary to chemotherapy 2. Squamous cell carcinoma on receiving chemotherapy stage III non-small cell lung cancer 3. History of COPD 4. History of autologous stem cell transplant 5. History of large B-cell lymphoma 6. History of chronic kidney disease 7. History of ischemic cardiomyopathy status post AICD 8. History of coronary artery disease 9. History of diabetes mellitus 2 DVT prophylaxis SCDs GI prophylaxis Protonix Oncology service is consulted Stool for C. diff negative Pt/Ot services consulted Repeat labs ordered
[2024-01-01 16:27] VITALS: BMI 23.7
[2024-01-01 17:29] LABS: Glucose,Whole Blood 152 mg/dL (70-110)
[2024-01-01] MEDS: MAG HYDROX/AL HYDROX/SIMETH 30 ML, LIDOCAINE VISCOUS 2% 30 ML, diphenhydrAMINE ELIXIR 7... PO SCH (17:41)
[2024-01-01 20:03] LABS: Glucose,Whole Blood 148 mg/dL (70-110)
--- NOTE | 2024-01-01 21:37 | P.PN ---
Subjective Progress Note Date: 01/01/24 No acute events. At today's visit patient is resting company in bed. Reporting improvement in symptoms. Had 1 episode of diarrhea since last night. Denies nausea vomiting. Appetite is still diminished but is tolerating oral intake. Reporting oral irritation Objective - Vital Signs Vital signs: Vital Signs Temp 98.3 F 01/01/24 14:14 Pulse 107 H 01/01/24 14:14 Resp 18 01/01/24 14:14 BP 114/74 01/01/24 14:14 Pulse Ox 95 01/01/24 14:14 FiO2 Intake & Output 01/01/24 01/01/24 01/02/24 06:59 18:59 06:59 Intake Total 590 360 Output Total 600 Balance 590 -240 Weight 60.781 kg Intake: Oral 590 360 Output: Urine 600 Other: Voiding Method Bedside Commode Bedside Commode # Voids 4 # Bowel Movements 2 2 - Constitutional General appearance: Present: average body habitus, no acute distress - EENT EENT Comment(s): mild mucositis noted Eyes: Present: anicteric sclerae, EOMI ENT: Present: hearing grossly normal - Respiratory Details: breathing is even and unlabored - Cardiovascular Details: skin warm and dry - Gastrointestinal General gastrointestinal: Present: soft. Absent: tenderness - Integumentary Integumentary: Absent: cyanotic - Neurologic Neurologic: Present: CNII-XII intact - Musculoskeletal Musculoskeletal: Present: strength equal bilaterally - Psychiatric Psychiatric: Present: A&O x's 3 - Labs CBC & Chem 7: 12/31/23 10:38 12/31/23 10:38 Labs: Abnormal Lab Results - Last 24 Hours (Table) 12/31/23 01/01/24 01/01/24 Range/Units 21:32 07:26 12:32 POC Glucose (mg/dL) 145 H 116 H 128 H (70-110) mg/dL 01/01/24 Range/Units 17:26 POC Glucose (mg/dL) 152 H (70-110) mg/dL Assessment and Plan (1) Weakness Current Visit: Yes Status: Acute Priority: High Code(s): R53.1 - WEAKNESS SNOMED Code(s): 69880618 (2) Diarrhea Current Visit: Yes Status: Acute Priority: High Code(s): R19.7 - DIARRHEA, UNSPECIFIED SNOMED Code(s): 04981073 (3) Squamous cell carcinoma of lung, stage III Current Visit: Yes Status: Acute Priority: High Code(s): C34.90 - MALIGNANT NEOPLASM OF UNSP PART OF UNSP BRONCHUS OR LUNG SNOMED Code(s): 509170838 Plan: Diarrhea, nausea, weakness, decreased oral intake: Presented with generalized weakness, nausea, decreased oral intake and diarrhea. Denies blood in stool/melena. Denies fever and chills. She reports taking lomotil with minor improvement in symptoms -C. difficile negative. CBC showing WBC 1.9, hemoglobin 10.2, platelets 182,000. Creatinine 1.2. Viral panel negative. -Scheduled and prn anti-diarrheals ordered. Diarrhea improving -Continue IV hydration and supportive medications -Referral placed to home health services due to progressing weakness and difficulties managing self care at home Stage IIIA non-small cell lung cancer: -Diagnosed in late September 2023 with recommendation for chemoimmunotherapy -Initially had planned to receive treatment in [place], but difficulty establishing at [facility] -Completed cycle 2 of carboplatin/paclitaxel/pembrolizumab on 12/26/23 -Will schedule clinic f/u upon discharge. Will need to discuss dose reduction due to treatment intolerance despite aggressive supportive care management. Will also schedule clinic IV hydration s/p treatments and continue aggressive supportive care measures
[2024-01-02 07:12] LABS: Glucose,Whole Blood 144 mg/dL (70-110)
[2024-01-02 11:51] LABS: ALT 35 U/L (8-44); AST 28 U/L (13-35); Albumin 3.8 g/dL (3.8-4.9); Albumin/Globulin Ratio 1.46 Ratio (1.60-3.17); Alkaline Phosphatase 113 U/L (41-126); BUN/Creat Ratio 27.73 Ratio (12.00-20.00); Blood Urea Nitrogen 30.5 mg/dL (9.0-27.0); Calcium 8.6 mg/dL (8.7-10.3); Carbon Dioxide 20.6 mmol/L (21.6-31.8); Chloride 104 mmol/L (96-109); Globulin 2.6 g/dL (1.6-3.3); Glucose 149 mg/dL (70-110); Potassium 4.2 mmol/L (3.5-5.5); Sodium 139 mmol/L (135-145); Total Bilirubin 0.9 mg/dL (0.3-1.2); Total Protein 6.4 g/dL (6.2-8.2)
[2024-01-02 12:05] LABS: Glucose,Whole Blood 175 mg/dL (70-110)
[2024-01-02] MEDS: LOPERAMIDE 2 MG CAP PO PRN (12:05)
[2024-01-02 13:16] LABS: Basophils # (A) 0 X 10*3/uL (0.00-0.10); Basophils % (A) 0 %; Elliptocytes 2+; Eosinophils # (A) 0 X 10*3/uL (0.04-0.35); Eosinophils % (A) 0 %; HCT 32.2 % (37.2-46.3); Lymphocytes # (A) 0.61 X 10*3/uL (0.90-5.00); Lymphocytes % (A) 79.2 %; MCH 30.9 pg (27.0-32.0); MCHC 31.1 g/dL (32.0-37.0); MCV 99.4 FL (80.0-97.0); Mean Platelet Volume 11.3 FL (9.5-12.2); Monocytes # (A) 0.08 X 10*3/uL (0.20-1.00); Monocytes % (A) 10.4 %; NRBC Per 100 WBC 0 X 10*3/uL (0.00-0.01); Neutrophils # (A) 0.07 X 10*3/uL (1.80-7.70); Neutrophils % (A) 9.1 %; Platelet Count 153 X 10*3/uL (140-440); RBC 3.24 X 10*6/uL (4.10-5.20); RDW 18.8 % (11.5-14.5); WBC 0.77 X 10*3/uL (4.50-10.00)
--- NOTE | 2024-01-02 14:20 | P.CNNES ---
History of Present Illness Consult date: 01/02/24 Requesting physician: Senthil Angeles Reason for Consult: confusion History of Present Illness: This is a 73-year-old woman with history of remote breast cancer status post bilateral mastectomy, states that non-small cell lung cancer post chemoimmunotherapy who presents because of the generalized weakness. Neurology is consulted for confusion. It seems the patient has a recent diagnosis of lung cancer in September 2023 and she had that at chemoimmunotherapy about 7 days ago. Per the nurse she presented with generalized weakness and been weak but it seems that yesterday after the dayshift she was more weak and more confused. Unsure exactly time. She is dropping things from her hand. Also per the nurse she is confused and she has staring off episodes. is at bedside and an he denies the patient has any history of stroke. No history of seizure. Some of the workup during his hospital visit consisted of: ALT is 88 most recent has stabilized. AST is 82 and has normalized. Magnesium is 1.3 and has normalized. Review of Systems Review of system is limited but the pertinent positive and negative as per HPI. Past Medical History Past Medical History: Asthma, Coronary Artery Disease (CAD), Cancer, Diabetes Mellitus, GERD/Reflux, Hypertension, Myocardial Infarction (NV), Pneumonia, Thyroid Disorder Additional Past Medical History / Comment(s): NSTEMI in September 2016 with subsequent coronary artery bypass grafting x 1, BRAR to the LAD, in October 2016. Severe ischemic cardiomyopathy with estimated ejection fraction 25-30%. Pending AICD placement. Admitted for hypotension in 11-13-16. Remote history of left Breast cancer stage 4(1994) had mastectomy and radiation/chemo,had genetic testing done,was poisitve for BRCA 2 gene mutation, so had elective right mastectomy done. 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 Salgado. She received 4 chemo tx, pne/sepsis Last Myocardial Infarction Date:: History of Any Multi-Drug Resistant Organisms: C-DIFF Date of last positivie culture/infection: 10/2016 MDRO Source:: stool Past Surgical History: Appendectomy, Breast Surgery, Cholecystectomy, Coronary Bypass/CABG, Heart Catheterization, Hysterectomy, Pacemaker, Tubal Ligation Additional Past Surgical History / Comment(s): LT BREAST WAS POSTIVE FOR CANCER STAGE 4 cancer-had masectomy. 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 PT TESTED POSITIVE FOR BRCA 2 GENE.then 8 YEARS AGO HAD RT BREAST REMOVED (prophylactically). lt cataract removed, 10-07-16 CABG( 1 VESSEL), LT INTERNAL M AMMARY ARTERY TO LEFT ANT DESCENDING ARTERY. EVAN OOPHERECTOMY(PROPHYLATIC), LUNG NODULE REMOVED(CANCEROUS-lymhoma- AND RECEIVED SEVERAL CHEMO tx, several venous access devices since removed. Past Anesthesia/Blood Transfusion Reactions: No Reported Reaction Additional Past Anesthesia/Blood Transfusion Reaction / Comment(s): takes a bit to wake up after Type of Cardiac Device: Unknown Device Placement Date:: UNK Past Psychological History: No Psychological Hx Reported Smoking Status: Never smoker Past Alcohol Use History: None Reported Past Drug Use History: None Reported - Past Family History Mother Family Medical History: Diabetes Mellitus Additional Family Medical History / Comment(s): heart valve replacment Father Family Medical History: Cancer Additional Family Medical History / Comment(s): lung cancer Sister(s) Family Medical History: Cancer Additional Family Medical History / Comment(s): breast cancer Medications and Allergies Home Medications Medication Instructions Recorded Confirmed Type Digoxin [Lanoxin] 125 mcg PO DAILY tab 01/01/17 12/30/23 Rx Atorvastatin [Lipitor] 40 mg PO DAILY 01/01/18 12/30/23 History Levothyroxine Sodium [Synthroid] 50 mcg PO DAILY 01/01/18 12/30/23 History metFORMIN HCL [Glucophage] 500 mg PO BID 05/09/19 12/30/23 History Gabapentin [Neurontin] 300 mg PO BID 09/17/23 12/30/23 History Albuterol Inhaler [Ventolin Hfa 1 - 2 puff INHALATION RT-Q6H PRN 11/14/23 12/30/23 History Inhaler] Clopidogrel [Plavix] 75 mg PO DAILY 11/14/23 12/30/23 History Colchicine 0.6 mg PO DAILY 11/14/23 12/30/23 History Metoprolol Succinate (ER) [Toprol 50 mg PO DAILY 11/14/23 12/30/23 History XL] Omeprazole 20 mg PO DAILY 11/14/23 12/30/23 History allopurinoL [Zyloprim] 300 mg PO DAILY 11/14/23 12/30/23 History Aspirin EC [Ecotrin Low Dose] 81 mg PO DAILY 12/02/23 12/30/23 History Ondansetron [Zofran] 4 - 8 mg PO Q4HR PRN 12/02/23 12/30/23 History Loperamide [Imodium] 2 mg PO QID PRN #20 cap 12/05/23 12/30/23 Rx Diphenox-Atrop 2.5-0.025 mg 2 tab PO BID 12/30/23 12/30/23 History [Lomotil] Furosemide [Lasix] 40 mg PO DAILY 12/30/23 12/30/23 History lisinopriL [Zestril] 5 mg PO DAILY 12/30/23 12/30/23 History Allergies Allergy/AdvReac Type Severity Reaction Status Date / Time ampicillin [From Unasyn] AdvReac Severe Nausea & Verified 12/30/23 16:41 Vomiting sulbactam [From Unasyn] AdvReac Severe Nausea & Verified 12/30/23 16:41 Vomiting acetaminophen [From Broaddus] AdvReac Intermediate Nausea & Verified 12/30/23 16:41 Vomiting hydrocodone [From Broaddus] AdvReac Intermediate Nausea & Verified 12/30/23 16:41 Vomiting codeine AdvReac Nausea & Verified 12/30/23 16:41 [From Tylenol-Codeine #3] Vomiting morphine AdvReac nausea, Verified 12/30/23 16:41 vomiting, and confusion Physical Examination - Vital Signs Vital Signs: Vital Signs Temp Pulse Resp BP Pulse Ox 01/02/24 08:50 118 H 20 01/02/24 07:13 98.1 F 118 H 20 110/71 96 01/02/24 03:36 118 H 01/02/24 03:21 98.3 F 130 H 16 114/76 99 01/02/24 02:00 98.0 F 83 16 111/67 93 L 01/01/24 20:00 98.2 F 87 16 104/62 94 L 01/01/24 14:14 98.3 F 107 H 18 114/74 95 Intake and Output 01/01/24 01/02/24 01/02/24 22:59 06:59 14:59 Intake Total 360 590 Output Total 600 Balance -240 590 Intake: Oral 360 590 Output: Urine 600 Other: Voiding Method Bedside Commode Bedside Commode # Voids 1 3 1 # Bowel Movements 0 1 Weight 60.781 kg General: Lying in bed and is not in acute distress. Neuro: Patient is drowsy but is awake and able to voice. She is mildly drowsy. She is oriented to self and place. She is able to identify objects such as pen and watch and glasses. She is minimally slow to respond. No aphasia. No neglect Pupils are round equal reactive to light. Pupils are round of 4 mm bilaterally. Visual rivera are full to consultation. Extraocular movement is intact no nystagmus. No facial weakness. No dysarthria. Motor is the strength is hard to assess individual muscle strength because her cooperation but the upon lifting the upper extremities is seems that she lifts both upper extremities but the left more than the right. She has a drift on the right upper extremity. She is left in bilateral upper extremity above gravity and seems the equal. Decreased tone mostly over the right upper extremity. Sensation is normal to touch throughout. Reflexes as 1 positive that Plantars are mute bilaterally. Results - Laboratory Findings CBC and BMP: 01/02/24 06:39 01/02/24 06:39 Abnormal Lab Findings: Abnormal Labs 12/30/23 12/30/23 12/30/23 11:32 11:32 20:47 WBC RBC 3.71 L Hgb Hct MCV MCHC RDW 18.4 H Neutrophils # Lymphocytes # 0.6 L Monocytes # Eosinophils # Elliptocytes Potassium 5.4 H Carbon Dioxide Anion Gap BUN 49 H Creatinine 1.42 H Est GFR (CKD-EPI) BUN/Creatinine Ratio Glucose 135 H POC Glucose (mg/dL) 135 H Calcium 7.9 L Phosphorus 4.6 H Magnesium 1.3 L Total Bilirubin 1.7 H AST 82 H ALT 88 H Albumin/Globulin Ratio Urine Protein Urine Glucose (UA) Ur Leukocyte Esterase Urine Bacteria Urine Mucus 12/31/23 12/31/23 12/31/23 10:38 10:38 12:20 WBC 1.97 L RBC 3.31 L Hgb 10.2 L Hct 32.4 L MCV 97.9 H MCHC 31.5 L RDW 18.8 H Neutrophils # 1.18 L Lymphocytes # 0.64 L Monocytes # 0.11 L Eosinophils # 0 L Elliptocytes Potassium Carbon Dioxide Anion Gap 14.30 H BUN 30.9 H Creatinine Est GFR (CKD-EPI) 48 L BUN/Creatinine Ratio 25.75 H Glucose 161 H POC Glucose (mg/dL) Calcium Phosphorus Magnesium Total Bilirubin AST 43 H ALT 61 H Albumin/Globulin Ratio 1.44 L Urine Protein Trace H Urine Glucose (UA) 3+ H Ur Leukocyte Esterase Trace H Urine Bacteria Rare H Urine Mucus Few H 12/31/23 12/31/23 01/01/24 17:03 21:32 07:26 WBC RBC Hgb Hct MCV MCHC RDW Neutrophils # Lymphocytes # Monocytes # Eosinophils # Elliptocytes Potassium Carbon Dioxide Anion Gap BUN Creatinine Est GFR (CKD-EPI) BUN/Creatinine Ratio Glucose POC Glucose (mg/dL) 139 H 145 H 116 H Calcium Phosphorus Magnesium Total Bilirubin AST ALT Albumin/Globulin Ratio Urine Protein Urine Glucose (UA) Ur Leukocyte Esterase Urine Bacteria Urine Mucus 01/01/24 01/01/24 01/01/24 12:32 17:26 20:01 WBC RBC Hgb Hct MCV MCHC RDW Neutrophils # Lymphocytes # Monocytes # Eosinophils # Elliptocytes Potassium Carbon Dioxide Anion Gap BUN Creatinine Est GFR (CKD-EPI) BUN/Creatinine Ratio Glucose POC Glucose (mg/dL) 128 H 152 H 148 H Calcium Phosphorus Magnesium Total Bilirubin AST ALT Albumin/Globulin Ratio Urine Protein Urine Glucose (UA) Ur Leukocyte Esterase Urine Bacteria Urine Mucus 01/02/24 01/02/24 01/02/24 06:39 06:39 07:11 WBC 0.77 A* RBC 3.24 L Hgb 10.0 L Hct 32.2 L MCV 99.4 H MCHC 31.1 L RDW 18.8 H Neutrophils # 0.07 A* Lymphocytes # 0.61 L Monocytes # 0.08 L Eosinophils # 0 L Elliptocytes 2+ A Potassium Carbon Dioxide 20.6 L Anion Gap 14.40 H BUN 30.5 H Creatinine Est GFR (CKD-EPI) 53 L BUN/Creatinine Ratio 27.73 H Glucose 149 H POC Glucose (mg/dL) 144 H Calcium 8.6 L Phosphorus Magnesium Total Bilirubin AST ALT Albumin/Globulin Ratio 1.46 L Urine Protein Urine Glucose (UA) Ur Leukocyte Esterase Urine Bacteria Urine Mucus 01/02/24 12:03 WBC RBC Hgb Hct MCV MCHC RDW Neutrophils # Lymphocytes # Monocytes # Eosinophils # Elliptocytes Potassium Carbon Dioxide Anion Gap BUN Creatinine Est GFR (CKD-EPI) BUN/Creatinine Ratio Glucose POC Glucose (mg/dL) 175 H Calcium Phosphorus Magnesium Total Bilirubin AST ALT Albumin/Globulin Ratio Urine Protein Urine Glucose (UA) Ur Leukocyte Esterase Urine Bacteria Urine Mucus Assessment and Plan Assessment: This is a 73-year-old woman with history of remote breast cancer status post bilateral mastectomy, who has a recent diagnosis of non-small cell lung cancer and had chemoimmunotherapy about 7 days ago who presents because of generalized weakness. She in more weak, dropping thing on her hand and confused. On examination right upper extremity is more weak. Acute to subacute right upper extremity weakness, generalized weakness with confusion: Rule out stroke versus brain metastases History of recent cell lung cancer post chemoimmunotherapy History of left breast cancer status post bilateral mastectomy the patient had radiation chemotherapy and genetic test and patient was positive BRCA2 History of coronary artery disease Severe ischemic cardiomyopathy status post AICD Diabetes mellitus Plan: CT of the head is ordered and is pending I ordered a routine EEG. We'll pursue with MRI of the brain 2-D echo was ordered and is pending Currently the patient is on aspirin 81, Plavix 75. The patient does have a stroke will start the patient on Lipitor at. Every 4 hours neuro checks Cardiac monitoring PT OT are consulted. Oncology team is on board. We'll defer the rest of the medical measure the primary and other specialists The plan was discussed with the patient's who is at bedside and his nurse. Thank you for the consultation. Time with Patient: Greater than 30
--- NOTE | 2024-01-02 15:48 | CT ---
EXAMINATION TYPE: CT brain wo con CT DLP: 1129.9 mGycm, Automated exposure control for dose reduction was used. DATE OF EXAM: 01/02/2024 1:45 PM COMPARISON: 10/02/2023. CLINICAL INDICATION:Female, 73 years old with history of confusion, confusion TECHNIQUE: Brain: Axial CT images of the brain were obtained with coronal and sagittal reformats created and rev iewed. Contrast used: None. Oral contrast used: None. FINDINGS: Brain: Extra-axial spaces: No abnormal extra-axial fluid collections. Ventricular system: Dilatation in proportion to cerebral atrophy. Cerebral parenchyma: Cerebral atrophy. No acute intraparenchymal hemorrhage or mass effect. The velazco -white junction is well differentiated. Scattered hypoattenuating areas are seen within the white mat ter. Cerebellum: Unremarkable. Mass effect: No evidence of midline shift. Intracranial vasculature: unremarkable Soft tissues: Normal. Calvarium/osseous structures: No depressed skull fracture. Paranasal sinuses and mastoid air cells: Mild scattered paranasal sinus disease. Visualized orbits: Bilaterally aphakia IMPRESSION: 1. No acute intracranial process. 2. Nonspecific white matter changes, likely secondary to chronic small vessel ischemic disease.
[2024-01-02 16:10] LABS: Appearance,Urine Clear (Clear); Bilirubin,Urine Negative (Negative); Blood,Urine Negative (Negative); Color,Urine Colorless; Glucose,Urine (UA) Negative (Negative); Ketones,Urine Negative (Negative); Leukocyte Esterase,Urine Negative (Negative); Nitrite,Urine Negative (Negative); Protein,Urine Negative (Negative); Specific Gravity,Urine 1.013 (1.001-1.035); Urobilinogen,Urine <2.0 mg/dL (<2.0)
[2024-01-02] MEDS: ACETAMINOPHEN TAB 325 MG TAB PO PRN (16:58)
[2024-01-02] MEDS: CEFEPIME 2 GM in SODIUM CHLORIDE 0.9% 100 ML IVPB SCH (16:58)
[2024-01-02 17:16] LABS: Glucose,Whole Blood 159 mg/dL (70-110)
--- NOTE | 2024-01-02 17:33 | P.PN ---
Subjective Progress Note Date: 01/01/24 Perla Kim, is a 73-year-old female patient of Dr. Chin who presents with complaints of weakness and diarrhea secondary to recent chemotherapy. Patient is currently under second round of chemotherapy for lung cancer. Patient reports last treatment was 5 days ago patient reports that she feels very weak and has no appetite. Patient has past medical history of asthma, COPD, diabetes mellitus, hypertension, AICD placement, lung cancer. Chest x-ray completed showing no acute process COPD with elevated right hemidiaphragm which can be associated with phrenic nerve palsy. Lab work revealing WBC of 5.0, hemoglobin 11.5, platelets 180 potassium elevated at 5.4 creatinine 1.42 and bun 49. Liver enzymes slightly elevated ALT 88, AST 82 total bili 1.7. Patient was negative for influenza RSV COVID-19. Patient will be admitted patient started on IV fluid. Oncology service is consulted. Repeat labs ordered. Stool for C. diff ordered. Zofran when necessary ordered On 01/01/2024 patient was seen and examined on the medical floor she is alert and oriented 3 in no apparent distress she is complaining of generalized weakness otherwise she denies any complaints, vital examination reveals a temperature of 97.8 pulse 107 respiration 19 and blood pressure 108/70 pulse ox 96% on room air Objective - Vital Signs Vital signs: Vital Signs Temp 97.8 F 01/01/24 08:19 Pulse 107 H 01/01/24 08:19 Resp 19 01/01/24 08:19 BP 108/70 01/01/24 08:19 Pulse Ox 96 01/01/24 08:19 FiO2 Intake & Output 12/31/23 01/01/24 01/01/24 18:59 06:59 18:59 Intake Total 360 590 Output Total 600 Balance -240 590 Weight 60.781 kg Intake: Oral 360 590 Output: Urine 600 Other: Voiding Method Bedside Commode Bedside Commode # Voids 4 # Bowel Movements 5 2 - Exam In general patient is alert and oriented 3 in no distress HEENT head normocephalic and atraumatic Neck is supple no JVD no goiter no lymphadenopathy no carotid bruit Chest examination is clear to auscultation no crackles no wheezing Cardiac exam reveals regular heart sounds S1 and S2 no gallops no murmurs Abdomen is soft nontender no organomegaly with normal bowel sounds Extremity exam reveals no edema no cyanosis or clubbing Neurological examination reveals no gross focal deficits - Labs CBC & Chem 7: 01/02/24 06:39 01/02/24 06:39 Labs: Abnormal Lab Results - Last 24 Hours (Table) 12/31/23 12/31/23 12/31/23 Range/Units 10:38 10:38 12:20 WBC 1.97 L (4.50-10.00) X 10*3/uL RBC 3.31 L (4.10-5.20) X 10*6/uL Hgb 10.2 L (12.0-15.0) g/dL Hct 32.4 L (37.2-46.3) % MCV 97.9 H (80.0-97.0) FL MCHC 31.5 L (32.0-37.0) g/dL RDW 18.8 H (11.5-14.5) % Neutrophils # 1.18 L (1.80-7.70) X 10*3/uL Lymphocytes # 0.64 L (0.90-5.00) X 10*3/uL Monocytes # 0.11 L (0.20-1.00) X 10*3/uL Eosinophils # 0 L (0.04-0.35) X 10*3/uL Anion Gap 14.30 H (4.00-12.00) mmol/L BUN 30.9 H (9.0-27.0) mg/dL Est GFR (CKD-EPI) 48 L (>=60) BUN/Creatinine Ratio 25.75 H (12.00-20.00) Ratio Glucose 161 H (70-110) mg/dL POC Glucose (mg/dL) (70-110) mg/dL AST 43 H (13-35) U/L ALT 61 H (8-44) U/L Albumin/Globulin Ratio 1.44 L (1.60-3.17) Ratio Urine Protein Trace H (Negative) Urine Glucose (UA) 3+ H (Negative) Ur Leukocyte Esterase Trace H (Negative) Urine Bacteria Rare H (None) /hpf Urine Mucus Few H (None) /hpf 12/31/23 12/31/23 01/01/24 Range/Units 17:03 21:32 07:26 WBC (4.50-10.00) X 10*3/uL RBC (4.10-5.20) X 10*6/uL Hgb (12.0-15.0) g/dL Hct (37.2-46.3) % MCV (80.0-97.0) FL MCHC (32.0-37.0) g/dL RDW (11.5-14.5) % Neutrophils # (1.80-7.70) X 10*3/uL Lymphocytes # (0.90-5.00) X 10*3/uL Monocytes # (0.20-1.00) X 10*3/uL Eosinophils # (0.04-0.35) X 10*3/uL Anion Gap (4.00-12.00) mmol/L BUN (9.0-27.0) mg/dL Est GFR (CKD-EPI) (>=60) BUN/Creatinine Ratio (12.00-20.00) Ratio Glucose (70-110) mg/dL POC Glucose (mg/dL) 139 H 145 H 116 H (70-110) mg/dL AST (13-35) U/L ALT (8-44) U/L Albumin/Globulin Ratio (1.60-3.17) Ratio Urine Protein (Negative) Urine Glucose (UA) (Negative) Ur Leukocyte Esterase (Negative) Urine Bacteria (None) /hpf Urine Mucus (None) /hpf Assessment and Plan Plan: 1. Weakness and diarrhea secondary to chemotherapy 2. Squamous cell carcinoma on receiving chemotherapy stage III non-small cell lung cancer 3. History of COPD 4. History of autologous stem cell transplant 5. History of large B-cell lymphoma 6. History of chronic kidney disease 7. History of ischemic cardiomyopathy status post AICD 8. History of coronary artery disease 9. History of diabetes mellitus 2 DVT prophylaxis SCDs GI prophylaxis Protonix Oncology service is consulted Stool for C. diff ordered Repeat labs ordered
--- NOTE | 2024-01-02 17:40 | P.CNPUL ---
History of Present Illness Consult date: 01/02/24 Requesting physician: Senthil Angeles Reason for consult: other (History of lung cancer) Chief complaint: Generalized weakness, poor appetite History of present illness: This is a very pleasanta 73-year-old woman who follows with Dr. Arechiga in our office is a primary care patient. 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 Brown at [facility] treated with resection and 4 cycles of Bendamustine/rituximab, and most recently diagnosed with stage IIIA squamous cell carcinoma of the lung in late September 2023. She just recently received carboplatin, paclitaxel, and Keytruda on 12/26/2023. She presented here to the emergency room on 12/30/2023 with progressive weakness and poor appetite. Chest x-ray revealed no acute process. 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 ET scan of the brain revealed no acute intracranial process. White count 0.77. Hemoglobin 10.0. Platelets 153. Sodium 139. Potassium 4.2. Bicarb 20. BUN 31. Creatinine 1.1. Glucose 159. He is seen today in consultation on the regular medical floor. She is currently resting in bed. Awake and alert in no acute distress. She is quite weak and fatigued. She is maintaining good O2 saturations in the 90s on room air. Blood pressure stable. She is slightly tachycardic. She is has a Tmax of 101.3. Lactic acid 2.8. She is currently on cefepime and Flagyl. She is receiving Zarxio. Normal saline at 75 MLS per hour. Review of Systems REVIEW OF SYSTEMS: CONSTITUTIONAL: Positive for generalized weakness, fatigue. Positive for poor appetite and weight loss. EYES: Denies change in vision. EARS, NOSE, MOUTH, THROAT: Denies headaches, denies sore throat. CARDIOVASCULAR: Denies chest pain, palpitations or syncopal episodes. RESPIRATORY: Denies shortness of breath, cough, congestion or hemoptysis. GASTROINTESTINAL: Positive for poor appetite, denies abdominal pain GENITOURINARY: Denies hematuria, denies infections. MUSKULOSKELETAL: Denies pain, denies swelling. INTEGUMENTARY: Denies rash, denies eczema. NEUROLOGICAL: Denies recent memory loss, no recent seizure activity. PSYCHIATRIC: Denies anxiety, denies depression. HEMATOLOGIC/LYMPHATIC: Denies anemia, denies enlarged lymph nodes. Past Medical History Past Medical History: Asthma, Coronary Artery Disease (CAD), Cancer, Diabetes Mellitus, GERD/Reflux, Hypertension, Myocardial Infarction (ND), Pneumonia, Thyroid Disorder Additional Past Medical History / Comment(s): NSTEMI in September 2016 with subsequent coronary artery bypass grafting x 1, BRAR to the LAD, in October 2016. Severe ischemic cardiomyopathy with estimated ejection fraction 25-30%. Pending AICD placement. Admitted for hypotension in 11-13-16. Remote history of left Breast cancer stage 4(1994) had mastectomy and radiation/chemo,had genetic testing done,was poisitve for BRCA 2 gene mutation, so had elective right mastectomy done. Left upper lobe lung nodule positive for B-lymphoma was biopsied at [facility], and left upper lobe was resected by Dr. Salgado. She received 4 chemo tx, pne/sepsis Last Myocardial Infarction Date:: History of Any Multi-Drug Resistant Organisms: C-DIFF Date of last positivie culture/infection: 10/2016 MDRO Source:: stool Past Surgical History: Appendectomy, Breast Surgery, Cholecystectomy, Coronary Bypass/CABG, Heart Catheterization, Hysterectomy, Pacemaker, Tubal Ligation Additional Past Surgical History / Comment(s): LT BREAST WAS POSTIVE FOR CANCER STAGE 4 cancer-had masectomy. 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 PT TESTED POSITIVE FOR BRCA 2 GENE.then 8 YEARS AGO HAD RT BREAST REMOVED (prophylactically). lt cataract removed, 10-07-16 CABG( 1 VESSEL), LT INTERNAL MAMMARY ARTERY TO LEFT ANT DESCENDING ARTERY. EVAN OOPHERECTOMY(PROPHYLATIC), LUNG NODULE REMOVED(CANCEROUS-lymhoma- AND RECEIVED SEVERAL CHEMO tx, several venous access devices since removed. Past Anesthesia/Blood Transfusion Reactions: No Reported Reaction Additional Past Anesthesia/Blood Transfusion Reaction / Comment(s): takes a bit to wake up after Type of Cardiac Device: Unknown Device Placement Date:: UNK Past Psychological History: No Psychological Hx Reported Smoking Status: Never smoker Past Alcohol Use History: None Reported Past Drug Use History: None Reported - Past Family History Mother Family Medical History: Diabetes Mellitus Additional Family Medical History / Comment(s): heart valve replacment Father Family Medical History: Cancer Additional Family Medical History / Comment(s): lung cancer Sister(s) Family Medical History: Cancer Additional Family Medical History / Comment(s): breast cancer Medications and Allergies Home Medications Medication Instructions Recorded Confirmed Type Digoxin [Lanoxin] 125 mcg PO DAILY tab 01/01/17 12/30/23 Rx Atorvastatin [Lipitor] 40 mg PO DAILY 01/01/18 12/30/23 History Levothyroxine Sodium [Synthroid] 50 mcg PO DAILY 01/01/18 12/30/23 History metFORMIN HCL [Glucophage] 500 mg PO BID 05/09/19 12/30/23 History Gabapentin [Neurontin] 300 mg PO BID 09/17/23 12/30/23 History Albuterol Inhaler [Ventolin Hfa 1 - 2 puff INHALATION RT-Q6H PRN 11/14/23 12/30/23 History Inhaler] Clopidogrel [Plavix] 75 mg PO DAILY 11/14/23 12/30/23 History Colchicine 0.6 mg PO DAILY 11/14/23 12/30/23 History Metoprolol Succinate (ER) [Toprol 50 mg PO DAILY 11/14/23 12/30/23 History XL] Omeprazole 20 mg PO DAILY 11/14/23 12/30/23 History allopurinoL [Zyloprim] 300 mg PO DAILY 11/14/23 12/30/23 History Aspirin EC [Ecotrin Low Dose] 81 mg PO DAILY 12/02/23 12/30/23 History Ondansetron [Zofran] 4 - 8 mg PO Q4HR PRN 12/02/23 12/30/23 History Loperamide [Imodium] 2 mg PO QID PRN #20 cap 12/05/23 12/30/23 Rx Diphenox-Atrop 2.5-0.025 mg 2 tab PO BID 12/30/23 12/30/23 History [Lomotil] Furosemide [Lasix] 40 mg PO DAILY 12/30/23 12/30/23 History lisinopriL [Zestril] 5 mg PO DAILY 12/30/23 12/30/23 History Allergies Allergy/AdvReac Type Severity Reaction Status Date / Time ampicillin [From Unasyn] AdvReac Severe Nausea & Verified 12/30/23 16:41 Vomiting sulbactam [From Unasyn] AdvReac Severe Nausea & Verified 12/30/23 16:41 Vomiting acetaminophen [From [place]] AdvReac Intermediate Nausea & Verified 12/30/23 16:41 Vomiting hydrocodone [From [place]] AdvReac Intermediate Nausea & Verified 12/30/23 16:41 Vomiting codeine AdvReac Nausea & Verified 12/30/23 16:41 [From Tylenol-Codeine #3] Vomiting morphine AdvReac nausea, Verified 12/30/23 16:41 vomiting, and confusion Physical Exam Vitals: Vital Signs Temp Pulse Resp BP Pulse Ox 01/02/24 16:03 101.3 F H 118 H 24 101/64 95 01/02/24 14:28 99.5 F 115 H 16 103/68 97 01/02/24 08:50 118 H 20 01/02/24 07:13 98.1 F 118 H 20 110/71 96 01/02/24 03:36 118 H 01/02/24 03:21 98.3 F 130 H 16 114/76 99 01/02/24 02:00 98.0 F 83 16 111/67 93 L 01/01/24 20:00 98.2 F 87 16 104/62 94 L Intake and Output 01/02/24 01/02/24 01/02/24 06:59 14:59 22:59 Intake Total 590 Balance 590 Intake: Oral 590 Other: Voiding Method Bedside Commode # Voids 3 1 # Bowel Movements 1 GENERAL EXAM: Alert,, fatigued 73-year-old female, on room air, fairly comfo rtable in no apparent distress. HEAD: Normocephalic. EYES: Normal reaction of pupils, equal size. NOSE: Clear with pink turbinates. THROAT: No erythema or exudates. NECK: No masses, no JVD. CHEST: No chest wall deformity. LUNGS: Equal air entry with no crackles, wheeze, rhonchi or dullness. CVS: S1 and S2 normal with no audible murmur, regular rhythm. ABDOMEN: No hepatosplenomegaly, normal bowel sounds, no guarding or rigidity. SPINE: No scoliosis or deformity SKIN: No rashes CENTRAL NERVOUS SYSTEM: No focal deficits, tone is normal in all 4 extremities. EXTREMITIES: There is no peripheral edema. No clubbing, no cyanosis. Peripheral pulses are intact. Results - Laboratory Findings CBC and BMP: 01/02/24 06:39 01/02/24 06:39 PT/INR, D-dimer PT 11.5 sec (10.0-12.5) 12/30/23 11:32 INR 1.1 (<1.2) 12/30/23 11:32 Abnormal lab findings: Abnormal Labs 12/30/23 12/30/23 12/30/23 11:32 11:32 20:47 WBC RBC 3.71 L Hgb Hct MCV MCHC RDW 18.4 H Neutrophils # Lymphocytes # 0.6 L Monocytes # Eosinophils # Elliptocytes Potassium 5.4 H Carbon Dioxide Anion Gap BUN 49 H Creatinine 1.42 H Est GFR (CKD-EPI) BUN/Creatinine Ratio Glucose 135 H POC Glucose (mg/dL) 135 H Plasma Lactic Acid [place] Calcium 7.9 L Phosphorus 4.6 H Magnesium 1.3 L Total Bilirubin 1.7 H AST 82 H ALT 88 H Albumin/Globulin Ratio Urine Protein Urine Glucose (UA) Ur Leukocyte Esterase Urine Bacteria Urine Mucus 12/31/23 12/31/23 12/31/23 10:38 10:38 12:20 WBC 1.97 L RBC 3.31 L Hgb 10.2 L Hct 32.4 L MCV 97.9 H MCHC 31.5 L RDW 18.8 H Neutrophils # 1.18 L Lymphocytes # 0.64 L Monocytes # 0.11 L Eosinophils # 0 L Elliptocytes Potassium Carbon Dioxide Anion Gap 14.30 H BUN 30.9 H Creatinine Est GFR (CKD-EPI) 48 L BUN/Creatinine Ratio 25.75 H Glucose 161 H POC Glucose (mg/dL) Plasma Lactic Acid [place] Calcium Phosphorus Magnesium Total Bilirubin AST 43 H ALT 61 H Albumin/Globulin Ratio 1.44 L Urine Protein Trace H Urine Glucose (UA) 3+ H Ur Leukocyte Esterase Trace H Urine Bacteria Rare H Urine Mucus Few H 12/31/23 12/31/23 01/01/24 17:03 21:32 07:26 WBC RBC Hgb Hct MCV MCHC RDW Neutrophils # Lymphocytes # Monocytes # Eosinophils # Elliptocytes Potassium Carbon Dioxide Anion Gap BUN Creatinine Est GFR (CKD-EPI) BUN/Creatinine Ratio Glucose POC Glucose (mg/dL) 139 H 145 H 116 H Plasma Lactic Acid [place] Calcium Phosphorus Magnesium Total Bilirubin AST ALT Albumin/Globulin Ratio Urine Protein Urine Glucose (UA) Ur Leukocyte Esterase Urine Bacteria Urine Mucus 01/01/24 01/01/24 01/01/24 12:32 17:26 20:01 WBC RBC Hgb Hct MCV MCHC RDW Neutrophils # Lymphocytes # Monocytes # Eosinophils # Elliptocytes Potassium Carbon Dioxide Anion Gap BUN Creatinine Est GFR (CKD-EPI) BUN/Creatinine Ratio Glucose POC Glucose (mg/dL) 128 H 152 H 148 H Plasma Lactic Acid [place] Calcium Phosphorus Magnesium Total Bilirubin AST ALT Albumin/Globulin Ratio Urine Protein Urine Glucose (UA) Ur Leukocyte Esterase Urine Bacteria Urine Mucus 01/02/24 01/02/24 01/02/24 06:39 06:39 07:11 WBC 0.77 A* RBC 3.24 L Hgb 10.0 L Hct 32.2 L MCV 99.4 H MCHC 31.1 L RDW 18.8 H Neutrophils # 0.07 A* Lymphocytes # 0.61 L Monocytes # 0.08 L Eosinophils # 0 L Elliptocytes 2+ A Potassium Carbon Dioxide 20.6 L Anion Gap 14.40 H BUN 30.5 H Creatinine Est GFR (CKD-EPI) 53 L BUN/Creatinine Ratio 27.73 H Glucose 149 H POC Glucose (mg/dL) 144 H Plasma Lactic Acid [place] Calcium 8.6 L Phosphorus Magnesium Total Bilirubin AST ALT Albumin/Globulin Ratio 1.46 L Urine Protein Urine Glucose (UA) Ur Leukocyte Esterase Urine Bacteria Urine Mucus 01/02/24 01/02/24 01/02/24 12:03 15:50 17:16 WBC RBC Hgb Hct MCV MCHC RDW Neutrophils # Lymphocytes # Monocytes # Eosinophils # Elliptocytes Potassium Carbon Dioxide Anion Gap BUN Creatinine Est GFR (CKD-EPI) BUN/Creatinine Ratio Glucose POC Glucose (mg/dL) 175 H 159 H Plasma Lactic Acid [place] 2.8 H* Calcium Phosphorus Magnesium Total Bilirubin AST ALT Albumin/Globulin Ratio Urine Protein Urine Glucose (UA) Ur Leukocyte Esterase Urine Bacteria Urine Mucus - Diagnostic Findings Chest x-ray: image reviewed Assessment and Plan Assessment: Generalized weakness and fatigue secondary to lung cancer treatment with chemotherapy Leukopenia secondary to above, current white count 0.77. On Zarxio Anemia secondary to above, current hemoglobin 10.0 Stage IIIA squamous cell carcinoma of the lung diagnosed in late September 2023. She completed cycle 2 of 1 of neoadjuvant carboplatin/paclitaxel/Keytruda on 12/26/2023. 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 Brown at [facility] treated with resection and 4 cycles of Bendamustine/rituximab History significant for metastatic breast cancer who underwent autologous stem cell transplant in the with no evidence of disease recurrence, status post bilateral mastectomy History of coronary artery disease with previous coronary artery bypass grafting in 2017 History of ischemic cardiomyopathy status post biventricular AICD placement Diabetes mellitus Hypertension Hyperlipidemia Hypothyroidism Lifelong non-smoker Plan: The patient was seen and evaluated Chest x-ray, labs and medications reviewed CT scan of the brain reviewed Currently stable and on room air Continue antibiotics Continue Zarxio Continue normal saline at 75 MLS per hour We will continue to follow and make further recommendations based on her clinical status I have personally seen and examined the patient, performed the documentation and the assessment and plan as written. Number of minutes spent on the visit: 20.
[2024-01-02] MEDS: FILGRASTIM-SNDZ 480 MCG/0.8 ML SYRINGE SQ SCH (18:14)
[2024-01-02 20:04] LABS: Glucose,Whole Blood 208 mg/dL (70-110)
--- NOTE | 2024-01-02 21:05 | XR ---
EXAM: XR chest 1V portable CLINICAL INDICATION:Female, 73 years old with history of fever; [facility] COMPARISON: 12/30/2023 TECHNIQUE: Chest single view. FINDINGS: Lines/tubes/devices: EKG leads overlie the chest. No indwelling lines are seen. Cardiomediastinum: Cardiac silhouette appears mildly enlarged. Stable mediastinal silhouette. Similar prominence of hilar regions may be vascular shadows. Multiple sternotomy wires may be from prior CABG. Vasculature: No increased pulmonary vasculature. Lungs/pleura: Mild diffuse coarsening of the interstitium again noted likely chronic changes. Hazy opacification to wards the left lung base. Mild apical pleural thickening. No significant pleural effusion or pneumoth orax. Bones/soft tissues: Bony thorax appears grossly intact, as seen. Regional soft tissues appear unremarkable. IMPRESSION: 1. Cardiomegaly and postoperative changes. 2. Mild left basilar atelectasis versus infiltrate.
--- NOTE | 2024-01-02 21:11 | P.CONS ---
History of Present Illness - Reason for Consult Consult date: 01/02/24 Neutropenia, fever Requesting physician: Senthil Angeles - Chief Complaint Fever x 1 day - History of Present Illness Patient is a 73-year female with a past medical history significant for diabetes mellitus hypertension [place] coronary artery disease hypothyroidism pre senting to the hospital 3 days ago for evaluation of generalized weakness and this patient started on chemotherapy for the lung cancer for last 1 to 2 months last chemo was about 5 days before presentation to hospital and the patient complaining of significant diarrhea with multiple loose stools no significant abdominal pain nausea but no vomiting on presentation to the hospital patient was afebrile however the patient did spike a fever of 101.3 F this afternoon patient was also tachycardic but not hypotensive or hypoxic patient did have elevated lactic acid white count 0.77 creatinine is 1.1 UA has been negative influenza RSV COVID testing was negative did have CT of the brain negative for any bleed infectious was consulted regarding febrile neutropenia and need for antibiotic therapy chest x-ray with cardiomegaly postoperative changes mild left basilar atelectasis versus infiltrate Review of Systems Positive point and negatives has been mentioned in the HPI, complete review of systems was performed and all other systems are negative Past Medical History Past Medical History: Asthma, Coronary Artery Disease (CAD), Cancer, Diabetes Mellitus, GERD/Reflux, Hypertension, Myocardial Infarction ([place]), Pneumonia, Thyr oid Disorder Additional Past Medical History / Comment(s): NSTEMI in September 2016 with subsequent coronary artery bypass grafting x 1, BRAR to the LAD, in October 2016. Severe ischemic cardiomyopathy with estimated ejection fraction 25-30%. Pending AICD placement. Admitted for hypotension in 11-13-16. Remote history of left Breast cancer stage 4(1994) had mastectomy and radiation/chemo,had genetic testing done,was poisitve for BRCA 2 gene mutation, so had elective right mastectomy done. 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 Salgado. She received 4 chemo tx, pne/sepsis Last Myocardial Infarction Date:: History of Any Multi-Drug Resistant Organisms: C-DIFF Year Discovered:: 10/2016 MDRO Source:: stool Past Surgical History: Appendectomy, Breast Surgery, Cholecystectomy, Coronary Bypass/CABG, Heart Catheterization, Hysterectomy, Pacemaker, Tubal Ligation Additional Past Surgical History / Comment(s): LT BREAST WAS POSTIVE FOR CANCER STAGE 4 cancer-had masectomy. 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 PT TESTED POSITIVE FOR BRCA 2 GENE.then 8 YEARS AGO HAD RT BREAST REMOVED (prophylactically). lt cataract removed, 10-07-16 CABG( 1 VESSEL), LT INTERNAL MAMMARY ARTERY TO LEFT ANT DESCENDING ARTERY. EVAN OOPHERECTOMY(PROPHYLATIC), RAVINDER NG NODULE REMOVED(CANCEROUS-lymhoma- AND RECEIVED SEVERAL CHEMO tx, several venous access devices since removed. Past Anesthesia/Blood Transfusion Reactions: No Reported Reaction Additional Past Anesthesia/Blood Transfusion Reaction / Comm: takes a bit to wake up after Type of Cardiac Device: Unknown Device Placement Date:: UNK Past Psychological History: No Psychological Hx Reported Smoking Status: Never smoker Past Alcohol Use History: None Reported Past Drug Use History: None Reported - Past Family History Mother Family Medical History: Diabetes Mellitus Additional Family Medical History / Comment(s): heart valve replacment Father Family Medical History: Cancer Additional Family Medical History / Comment(s): lung cancer Sister(s) Family Medical History: Cancer Additional Family Medical History / Comment(s): breast cancer Medications and Allergies Home Medications Medication Instructions Recorded Confirmed Type Atorvastatin [Lipitor] 40 mg PO DAILY 01/01/18 12/30/23 History Levothyroxine Sodium [Synthroid] 50 mcg PO DAILY 01/01/18 12/30/23 History metFORMIN HCL [Glucophage] 500 mg PO BID 05/09/19 12/30/23 History Albuterol Inhaler [Ventolin Hfa 1 - 2 puff INHALATION RT-Q6H PRN 11/14/23 12/30/23 History Inhaler] Clopidogrel [Plavix] 75 mg PO DAILY 11/14/23 12/30/23 History Colchicine 0.6 mg PO DAILY 11/14/23 12/30/23 History Metoprolol Succinate (ER) [Toprol 50 mg PO DAILY 11/14/23 12/30/23 History XL] Omeprazole 20 mg PO DAILY 11/14/23 12/30/23 History allopurinoL [Zyloprim] 300 mg PO DAILY 11/14/23 12/30/23 History Aspirin EC [Ecotrin Low Dose] 81 mg PO DAILY 12/02/23 12/30/23 History Ondansetron [Zofran] 4 - 8 mg PO Q4HR PRN 12/02/23 12/30/23 History Loperamide [Imodium] 2 mg PO QID PRN #20 cap 12/05/23 12/30/23 Rx Diphenox-Atrop 2.5-0.025 mg 2 tab PO BID 12/30/23 12/30/23 History [Lomotil] Furosemide [Lasix] 40 mg PO DAILY 12/30/23 12/30/23 History Acetaminophen Tab [Tylenol] 650 mg PO Q6HR PRN tab 01/09/24 Rx Folic Acid 1 mg PO DAILY tab 01/09/24 Rx Gabapentin [Neurontin] 300 mg PO BID #4 cap 01/09/24 Rx Hydrocortisone Suppository 25 mg RECTAL BID suppositor 01/09/24 Rx [Anusol-Hc] Ibuprofen [Motrin] 400 mg PO Q6HR PRN tab 01/09/24 Rx Ipratropium-Albuterol Nebulize 3 ml INHALATION RT-TID PRN each 01/09/24 Rx [Duoneb 0.5 mg-3 mg/3 ml Soln] Lidocaine Viscous 2% [Xylocaine 30 ml PO QID ml 01/09/24 Rx Viscous] Mag Hydrox/Al Hydrox/Simeth 30 ml PO QID ml 01/09/24 Rx [Maalox] Melatonin 5 mg PO HS PRN tab 01/09/24 Rx Midodrine [ProAmatine] 10 mg PO AC-TID PRN tab 01/09/24 Rx Multivitamins, Thera [Multivitamin] 1 tab PO DAILY #30 tablet 01/09/24 Rx Nystatin 100,000 Unit/ml Susp 3,000,000 unit PO QID ml 01/09/24 Rx [Mycostatin Oral Susp] Nystatin 100,000 Unit/ml Susp 500,000 unit PO QID PRN ml 01/09/24 Rx [Mycostatin Oral Susp] Tamsulosin [Flomax] 0.4 mg PO PC-BRKFST cap 01/09/24 Rx Thiamine [Vitamin B-1] 100 mg PO DAILY #30 tablet 01/09/24 Rx cefUROXime axetiL [Ceftin] 500 mg PO BID 7 Days #14 tab 01/09/24 Rx droNABinol [Marinol] 2.5 mg PO AC-BID #4 cap 01/09/24 Rx Allergies Allergy/AdvReac Type Severity Reaction Status Date / Time ampicillin [From Unasyn] AdvReac Severe Nausea & Verified 12/30/23 16:41 Vomiting sulbactam [From Unasyn] AdvReac Severe Nausea & Verified 12/30/23 16:41 Vomiting acetaminophen [From [place]] AdvReac Intermediate Nausea & Verified 12/30/23 16:41 Vomiting hydrocodone [From [place]] AdvReac Intermediate Nausea & Verified 12/30/23 16:41 Vomiting codeine AdvReac Nausea & Verified 12/30/23 16:41 [From Tylenol-Codeine #3] Vomiting morphine AdvReac nausea, Verified 12/30/23 16:41 vomiting, and confusion Physical Exam Vitals: Vital Signs Temp Pulse Resp BP Pulse Ox 01/02/24 20:31 118 H 01/02/24 19:27 101.0 F H 118 H 23 98/63 96 01/02/24 16:03 101.3 F H 118 H 24 101/64 95 01/02/24 14:28 99.5 F 115 H 16 103/68 97 01/02/24 08:50 118 H 20 01/02/24 07:13 98.1 F 118 H 20 110/71 96 01/02/24 03:36 118 H 01/02/24 03:21 98.3 F 130 H 16 114/76 99 01/02/24 02:00 98.0 F 83 16 111/67 93 L Intake and Output 01/02/24 01/02/24 01/02/24 06:59 14:59 22:59 Intake Total 590 Output Total 200 Balance 590 -200 Intake: Oral 590 Output: Urine 200 Other: Voiding Method Bedside Commode # Voids 3 1 # Bowel Movements 1 GENERAL DESCRIPTION: Elderly female lying in bed, no distress. No tachypnea or accessory muscle of respiration use. HEENT: Shows Pallor , no scleral icterus. Oral mucous membrane is dry. No pharyngeal erythema or thrush NECK: Trachea central, no thyromegaly. LUNGS: Unlabored breathing. Clear to auscultation anteriorly. No wheeze or crackle. HEART: S1, S2, regular rate and rhythm. No loud murmur ABDOMEN: Soft, no tenderness , guarding or rigidity, EXTREMITIES: No edema of feet. SKIN: No rash, no masses palpable. NEUROLOGICAL: The patient is awake, alert, mood and affect normal. Results CBC & Chem 7: 01/08/24 14:22 01/08/24 14:22 Labs: Abnormal Lab Results - Last 24 Hours (Table) 01/02/24 01/02/24 01/02/24 Range/Units 06:39 06:39 07:11 WBC 0.77 A* (4.50-10.00) X 10*3/uL RBC 3.24 L (4.10-5.20) X 10*6/uL Hgb 10.0 L (12.0-15.0) g/dL Hct 32.2 L (37.2-46.3) % MCV 99.4 H (80.0-97.0) FL MCHC 31.1 L (32.0-37.0) g/dL RDW 18.8 H (11.5-14.5) % Neutrophils # 0.07 A* (1.80-7.70) X 10*3/uL Lymphocytes # 0.61 L (0.90-5.00) X 10*3/uL Monocytes # 0.08 L (0.20-1.00) X 10*3/uL Eosinophils # 0 L (0.04-0.35) X 10*3/uL Elliptocytes 2+ A Carbon Dioxide 20.6 L (21.6-31.8) mmol/L Anion Gap 14.40 H (4.00-12.00) mmol/L BUN 30.5 H (9.0-27.0) mg/dL Est GFR (CKD-EPI) 53 L (>=60) BUN/Creatinine Ratio 27.73 H (12.00-20.00) Ratio Glucose 149 H (70-110) mg/dL POC Glucose (mg/dL) 144 H (70-110) mg/dL Plasma Lactic Acid [place] (0.7-2.0) mmol/L Calcium 8.6 L (8.7-10.3) mg/dL Albumin/Globulin Ratio 1.46 L (1.60-3.17) Ratio 01/02/24 01/02/24 01/02/24 Range/Units 12:03 15:50 17:16 WBC (4.50-10.00) X 10*3/uL RBC (4.10-5.20) X 10*6/uL Hgb (12.0-15.0) g/dL Hct (37.2-46.3) % MCV (80.0-97.0) FL MCHC (32.0-37.0) g/dL RDW (11.5-14.5) % Neutrophils # (1.80-7.70) X 10*3/uL Lymphocytes # (0.90-5.00) X 10*3/uL Monocytes # (0.20-1.00) X 10*3/uL Eosinophils # (0.04-0.35) X 10*3/uL Elliptocytes Carbon Dioxide (21.6-31.8) mmol/L Anion Gap (4.00-12.00) mmol/L BUN (9.0-27.0) mg/dL Est GFR (CKD-EPI) (>=60) BUN/Creatinine Ratio (12.00-20.00) Ratio Glucose (70-110) mg/dL POC Glucose (mg/dL) 175 H 159 H (70-110) mg/dL Plasma Lactic Acid [place] 2.8 H* (0.7-2.0) mmol/L Calcium (8.7-10.3) mg/dL Albumin/Globulin Ratio (1.60-3.17) Ratio / Range/Units 20:02 WBC (4.50-10.00) X 10*3/uL RBC (4.10-5.20) X 10*6/uL Hgb (12.0-15.0) g/dL Hct (37.2-46.3) % MCV (80.0-97.0) FL MCHC (32.0-37.0) g/dL RDW (11.5-14.5) % Neutrophils # (1.80-7.70) X 10*3/uL Lymphocytes # (0.90-5.00) X 10*3/uL Monocytes # (0.20-1.00) X 10*3/uL Eosinophils # (0.04-0.35) X 10*3/uL Elliptocytes Carbon Dioxide (21.6-31.8) mmol/L Anion Gap (4.00-12.00) mmol/L BUN (9.0-27.0) mg/dL Est GFR (CKD-EPI) (>=60) BUN/Creatinine Ratio (12.00-20.00) Ratio Glucose (70-110) mg/dL POC Glucose (mg/dL) 208 H (70-110) mg/dL Plasma Lactic Acid [place] (0.7-2.0) mmol/L Calcium (8.7-10.3) mg/dL Albumin/Globulin Ratio (1.60-3.17) Ratio Assessment and Plan (1) Febrile neutropenia Current Visit: Yes Status: Acute Priority: High Code(s): D70.9 - NEUT ROPENIA, UNSPECIFIED; R50.81 - FEVER PRESENTING WITH CONDITIONS CLASSIFIED ELSEWHERE SNOMED Code(s): 351595022 Plan: 1patient with febrile neutropenia in this patient who did have a fever of 101 F patient did have a white count of 0.77 neutrophil count of only 0.01patient initially presented to hospital with significant diarrhea stool for C. difficile has been negative, chest x-ray left lower lobe infiltrate however do not have significant respiratory symptoms source underlying pneumonia versus abdominal 2-we will obtain blood culture check a CRP procalcitonin level and stool culture 3-we will empirically cover with cefepime and Flagyl while waiting for the workup to be completed Family bedside questions answered We will follow on clinical condition and cultures to further adjust medication if needed Thank you for this consultation we will follow the patient along with you Dictation was produced using [employer] dictation software. please excuse any grammatical, word or spelling errors. Time with Patient: Greater than 30
[2024-01-02] MEDS: metroNIDAZOLE-NS PMX 500 MG in SALINE 1 100ML.BAG IVPB SCH (23:39)
[2024-01-03 00:34] LABS: T4, Free (Free Thyroxine) 1.07 ng/dL (0.80-1.80)
--- NOTE | 2024-01-03 02:38 | EEG ---
ELECTROENCEPHALOGRAM REPORT CLINICAL HISTORY: This is a 73-year-old woman with altered mental status. The video EEG is obtained to evaluate for seizure epileptiform activity. RELEVANT MEDICATION: Gabapentin. EEG TYPE: A routine 21-channel EEG with video using the 10/20 electrode placement system. DESCRIPTION: Wakefulness and drowsiness are obtained. During awake state, the background consists of esy-me-yulnymnu voltage of 5 to 6 hertz activity. At times, the background consists of eif-iq-rkwvqwrg voltage of nonrhythmic polymorphic delta activity. There is no physiological stage 2 sleep architecture. There is no focal slowing. Interictal and ictal is none. ACTIVATION PROCEDURE: Photic stimulation did not evoke a posterior driving response. There is no abnormality during the photic stimulation. Hyperventilation is not performed. CLINICAL INTERPRETATION: This is an abnormal routine EEG. The background slowing is suggestive of moderate encephalopathy. Otherwise, there is no focal slowing, epileptiform discharge, or seizure on the EEG. Clinical correlation is recommended. NIKOS / MINA: [id number] / [email or web address]
[2024-01-03 07:11] LABS: Glucose,Whole Blood 136 mg/dL (70-110)
[2024-01-03 08:55] LABS: ALT 33 U/L (4-34); AST 28 U/L (14-36); African American GFR (CKD) 51 (>60 ml/min/1.73 sqM); Albumin 3.2 g/dL (3.5-5.0); Albumin/Globulin Ratio 1.1; Alkaline Phosphatase 102 U/L (38-126); Anion Gap 13 mmol/L; Blood Urea Nitrogen 44 mg/dL (7-17); Carbon Dioxide 17 mmol/L (22-30); Chloride 108 mmol/L (98-107); Glucose 141 mg/dL (74-99); Non-African American GFR(CKD) 44 (>60 ml/min/1.73 sqM); Potassium 3.9 mmol/L (3.5-5.1); Sodium 138 mmol/L (137-145); Total Bilirubin 1.2 mg/dL (0.2-1.3); Total Protein 6.2 g/dL (6.3-8.2)
--- NOTE | 2024-01-03 09:26 | CA ---
Transthoracic Echo Report Name: Perla Kim Age: 73 Gender: F : 1950 Exam Date: 01/02/2024 08:48 Exam Location: [facility] Ht (in): 63 Wt (lb): 134 Ordering Physician: Senthil Angeles MD Attending/Referring Phys: [employer]imming Pool Service Technician Lenny Roldan RDCS Procedure CPT: Indications: tachycardia, dyspnea Cardiac Hx: Technical Quality: Contrast 1: Total Dose (mL): Contrast 2: Total Dose (mL): MEASUREMENTS (Male / Female) Normal Values 2D ECHO LV Diastolic Diameter PLAX 4.8 cm 4.2 - 5.9 / 3.9 - 5.3 cm LV Systolic Diameter PLAX 4.6 cm IVS Diastolic Thickness 1.0 cm 0.6 - 1.0 / 0.6 - 0.9 cm LVPW Diastolic Thickness 1.1 cm 0.6 - 1.0 / 0.6 - 0.9 cm LV Relative Wall Thickness 0.4 LVOT Diameter 1.9 cm Aortic Root Diameter 2.2 cm LA Systolic Diameter LX 4.3 cm 3.0 - 4.0 / 2.7 - 3.8 cm DOPPLER AI Peak Velocity 434.5 cm/s AI Peak Gradient 75.5 mmHg AI Pressure Half Time 237.2 ms LVOT Peak Velocity 53.3 cm/s LVOT Peak Gradient 1.1 mmHg LVOT Velocity Time Integral 9.3 cm LVOT Stroke Volume 27.0 cm??? LVOT Stroke Volume Index 16.5 ml/m??? LVOT Cardiac Index 1960.2 cm???/min???m??? MR Peak Velocity 504.2 cm/s MR Peak Gradient 101.7 mmHg TR Peak Velocity 200.9 cm/s TR Peak Gradient 16.1 mmHg PV Peak Velocity 67.8 cm/s PV Peak Gradient 1.8 mmHg FINDINGS Left Ventricle Left ventricular ejection fraction is estimated at 20-25%. Mildly dilated left ventricular cavity. Mildly dilated LV cavity diameter 5.2 cm. Apical hypokinesia. Right Ventricle PPM wire in RV. Right ventricular systolic pressure estimated at 35.25 mm hg. Right Atrium PPM wire in RA Left Atrium Moderate left atrial dilatation. Elevated LA filling pressures Mitral Valve Calcific degeneration of mitral leaflet with severe mitral regurgitation. Aortic Valve Calcified aortic valve with moderate aortic stenosis and severe aortic regurgitation Tricuspid Valve Moderate tricuspid regurgitation. Pulmonic Valve Mild pulmonic regurgitation. Pericardium No pericardial effusion. Aorta Normal size aortic root. CONCLUSIONS Left ventricular ejection fraction is estimated at 20-25%. Mildly dilated left ventricular cavity. Mildly dilated LV cavity diameter 5.2 cm. Apical hypokinesia. Calcified aortic valve with moderate aortic stenosis and severe aortic regurgitation. Calcific degeneration of mitral leaflet with severe mitral regurgitation. Elevated LA filling pressures. Moderate left atrial dilatation. PPM wire in RA and RV Previewed by: Dr Gerson Loaiza (Electronically Signed) Final Date: 03 January 2024 09:25
--- NOTE | 2024-01-03 09:36 | P.PN ---
Subjective Progress Note Date: 01/03/24 Perla Kim, is a 73-year-old female patient of Dr. Chin who presents with complaints of weakness and diarrhea secondary to recent chemotherapy. Patient is currently under second round of chemotherapy for lung cancer. Patient reports last treatment was 5 days ago patient reports that she feels very weak and has no appetite. Patient has past medical history of asthma, COPD, diabetes mellitus, hypertension, AICD placement, lung cancer. Chest x-ray completed showing no acute process COPD with elevated right hemidiaphragm which can be associated with phrenic nerve palsy. Lab work revealing WBC of 5.0, hemoglobin 11.5, platelets 180 potassium elevated at 5.4 creatinine 1.42 and bun 49. Liver enzymes slightly elevated ALT 88, AST 82 total bili 1.7. Patient was negative for influenza RSV COVID-19. Patient will be admitted patient started on IV fluid. Oncology service is consulted. Repeat labs ordered. Stool for C. diff ordered. Zofran when necessary ordered On 01/01/2024 patient was seen and examined on the medical floor she is alert and oriented 3 in no apparent distress she is complaining of generalized weakness otherwise she denies any complaints, vital examination reveals a temperature of 97.8 pulse 107 respiration 19 and blood pressure 108/70 pulse ox 96% on room air. On 01/02/2024 patient was seen and examined on the medical floor she is alert and oriented 3 in no apparent distress she is complaining of generalized weakness, temperature is slightly elevated at 99.5 heart rate 1:15 respiration 16 blood pressure 103/68 white blood count is 0.77 hemoglobin 10.0 platelet count 153 lactic acid is elevated at 2.8 On 01/03/2024 patient's alert and oriented 3. Family at bedside reports improvement with mentation. Patient reports improvement with diarrhea.patient had low-grade temp last night 99.5. Current vital signs temp 98.2, heart rate 109, respiratory rate 18, blood pressure 122/64 with a pulse ox 97% on room air. Infectious disease, pulmonary,an oncology service is following. Patient remains on IV Maxipime and IV Flagyl. Dr. Oates's group will be covering from 01/04/2024 to 01/13/2024 Objective - Vital Signs Vital signs: Vital Signs Temp 98.2 F 01/03/24 07:05 Pulse 109 H 01/03/24 07:05 Resp 18 01/03/24 07:05 BP 100/64 01/03/24 07:05 Pulse Ox 97 01/03/24 07:05 FiO2 Intake & Output 01/02/24 01/03/24 01/03/24 18:59 06:59 18:59 Intake Total 1780 Output Total 200 300 Balance -200 1480 Intake: Intake, IV Titration 1100 Amount Cefepime 2 gm In Sodium 100 Chloride 0.9% 100 ml @ 25 mls/hr IVPB Q8HR [facility] Rx# :[id number] Sodium Chloride 0.9% 1, 900 000 ml @ 75 mls/hr IV . [id number] [facility] Rx#:[id number] metroNIDAZOLE-NS PMX 500 100 mg In Saline 1 100ml.bag @ 100 mls/hr IVPB Q8HR [facility] Rx#:[id number] Oral 680 Output: Urine 200 300 Other: Voiding Method Bedside Commode Bedside Commode # Voids 1 2 # Bowel Movements 1 0 - Exam In general patient is alert and oriented x 3 in no distress HEENT head normocephalic and atraumatic Neck is supple no JVD no goiter no lymphadenopathy no carotid bruit Chest examination is clear to auscultation no crackles no wheezing Cardiac exam reveals regular heart sounds S1 and S2 no gallops no murmurs Abdomen is soft nontender no organomegaly with normal bowel sounds Extremity exam reveals no edema no cyanosis or clubbing Neurological examination reveals no gross focal deficits - Labs CBC & Chem 7: 01/02/24 06:39 01/03/24 08:10 Labs: Abnormal Lab Results - Last 24 Hours (Table) 01/02/24 01/02/24 01/02/24 Range/Units 06:39 06:39 06:39 WBC 0.77 A* (4.50-10.00) X 10*3/uL RBC 3.24 L (4.10-5.20) X 10*6/uL Hgb 10.0 L (12.0-15.0) g/dL Hct 32.2 L (37.2-46.3) % MCV 99.4 H (80.0-97.0) FL MCHC 31.1 L (32.0-37.0) g/dL RDW 18.8 H (11.5-14.5) % Neutrophils # 0.07 A* (1.80-7.70) X 10*3/uL Lymphocytes # 0.61 L (0.90-5.00) X 10*3/uL Monocytes # 0.08 L (0.20-1.00) X 10*3/uL Eosinophils # 0 L (0.04-0.35) X 10*3/uL Elliptocytes 2+ A Chloride (98-107) mmol/L Carbon Dioxide 20.6 L (21.6-31.8) mmol/L Anion Gap 14.40 H (4.00-12.00) mmol/L BUN 30.5 H (9.0-27.0) mg/dL Creatinine (0.52-1.04) mg/dL Est GFR (CKD-EPI) 53 L (>=60) BUN/Creatinine Ratio 27.73 H (12.00-20.00) Ratio Glucose 149 H (70-110) mg/dL POC Glucose (mg/dL) (70-110) mg/dL Plasma Lactic Acid [place] (0.7-2.0) mmol/L Calcium 8.6 L (8.7-10.3) mg/dL Total Protein (6.3-8.2) g/dL Albumin (3.5-5.0) g/dL Albumin/Globulin Ratio 1.46 L (1.60-3.17) Ratio Free T3 pg/mL 1.90 L (2.30-4.20) pg/mL Cortisol 42.3 H (3.1-22.4) UG/DL 01/02/24 01/02/24 01/02/24 Range/Units 12:03 15:50 17:16 WBC (4.50-10.00) X 10*3/uL RBC (4.10-5.20) X 10*6/uL Hgb (12.0-15.0) g/dL Hct (37.2-46.3) % MCV (80.0-97.0) FL MCHC (32.0-37.0) g/dL RDW (11.5-14.5) % Neutrophils # (1.80-7.70) X 10*3/uL Lymphocytes # (0.90-5.00) X 10*3/uL Monocytes # (0.20-1.00) X 10*3/uL Eosinophils # (0.04-0.35) X 10*3/uL Elliptocytes Chloride (98-107) mmol/L Carbon Dioxide (21.6-31.8) mmol/L Anion Gap (4.00-12.00) mmol/L BUN (9.0-27.0) mg/dL Creatinine (0.52-1.04) mg/dL Est GFR (CKD-EPI) (>=60) BUN/Creatinine Ratio (12.00-20.00) Ratio Glucose (70-110) mg/dL POC Glucose (mg/dL) 175 H 159 H (70-110) mg/dL Plasma Lactic Acid [place] 2.8 H* (0.7-2.0) mmol/L Calcium (8.7-10.3) mg/dL Total Protein (6.3-8.2) g/dL Albumin (3.5-5.0) g/dL Albumin/Globulin Ratio (1.60-3.17) Ratio Free T3 pg/mL (2.30-4.20) pg/mL Cortisol (3.1-22.4) UG/DL 01/02/24 01/03/24 01/03/24 Range/Units 20:02 07:10 08:10 WBC (4.50-10.00) X 10*3/uL RBC (4.10-5.20) X 10*6/uL Hgb (12.0-15.0) g/dL Hct (37.2-46.3) % MCV (80.0-97.0) FL MCHC (32.0-37.0) g/dL RDW (11.5-14.5) % Neutrophils # (1.80-7.70) X 10*3/uL Lymphocytes # (0.90-5.00) X 10*3/uL Monocytes # (0.20-1.00) X 10*3/uL Eosinophils # (0.04-0.35) X 10*3/uL Elliptocytes Chloride 108 H (98-107) mmol/L Carbon Dioxide 17 L (21.6-31.8) mmol/L Anion Gap (4.00-12.00) mmol/L BUN 44 H (9.0-27.0) mg/dL Creatinine 1.22 H (0.52-1.04) mg/dL Est GFR (CKD-EPI) (>=60) BUN/Creatinine Ratio (12.00-20.00) Ratio Glucose 141 H (70-110) mg/dL POC Glucose (mg/dL) 208 H 136 H (70-110) mg/dL Plasma Lactic Acid [place] (0.7-2.0) mmol/L Calcium 8.0 L (8.7-10.3) mg/dL Total Protein 6.2 L (6.3-8.2) g/dL Albumin 3.2 L (3.5-5.0) g/dL Albumin/Globulin Ratio (1.60-3.17) Ratio Free T3 pg/mL (2.30-4.20) pg/mL Cortisol (3.1-22.4) UG/DL
[2024-01-03 11:01] LABS: Anisocytosis Slight; HCT 28.2 % (34.0-46.0); Hypochromasia Slight; MCH 31.3 pg (25.0-35.0); MCHC 31.8 g/dL (31.0-37.0); MCV 98.4 fL (80.0-100.0); Macrocytosis Slight; Mean Platelet Volume 9.4; Platelet Count 123 k/uL (150-450); RBC 2.86 m/uL (3.80-5.40); RDW 18.2 % (11.5-15.5)
[2024-01-03 11:03] LABS: WBC 1.1 k/uL (3.8-10.6)
[2024-01-03 11:09] LABS: Glucose,Whole Blood 152 mg/dL (70-110)
[2024-01-03 12:32] LABS: Lymphocytes # (M) 0.86 k/uL (1.0-4.8); Monocytes # (M) 0.23 k/uL (0-1.0); Neutrophils % (M) 1 %; Nucleated Red Blood Cells 0 /100 WBC (0-0); Total Cells Counted 100
[2024-01-03 12:45] LABS: Poikilocytosis (M) Present
[2024-01-03 12:46] LABS: Ovalocytes Present
--- NOTE | 2024-01-03 14:33 | P.PN ---
Subjective Progress Note Date: 01/03/24 This is a very pleasant 73-year-old woman who follows with Dr. Arechiga in our office is a primary care patient. 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 She just recently received carboplatin, paclitaxel, and Keytruda on 12/26/2023. She presented here to the emergency room on 12/30/2023 with progressive weakness and poor appetite. Chest x-ray revealed no acute process. 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 ET scan of the brain revealed no acute intracranial process. White count 0.77. Hemoglobin 10.0. Platelets 153. Sodium 139. Potassium 4.2. Bicarb 20. BUN 31. Creatinine 1.1. Glucose 159. He is seen today in consultation on the regular medical floor. She is currently resting in bed. Awake and alert in no acute distress. She is quite weak and fatigued. She is maintaining good O2 saturations in the 90s on room air. Blood pressure stable. She is slightly tachycardic. She is has a Tmax of 101.3. Lactic acid 2.8. She is currently on cefepime and Flagyl. She is receiving Zarxio. Normal saline at 75 MLS per hour. The patient is seen today January 03, 2024 in follow-up on the regular medical floor. She is currently sitting up in bed. Awake and alert in no acute dist ress. Feeling a bit better today compared to yesterday. Chest x-ray revealed cardiomegaly. Mild left basilar atelectasis versus infiltrate. She is maintaining good O2 saturations in the 90s on room air. Afebrile. Hemodynamically stable. White count 1.1. Hemoglobin 9.0. Platelets 123. Sodium 138. Potassium 3.9. Bicarb 17. BUN 44. Creatinine 1.22. Glucose 141. She remains on cefepime and Flagyl. Continued on Zarxio. Objective - Vital Signs Vital signs: Vital Signs Temp 99.7 F H 01/03/24 13:45 Pulse 108 H 01/03/24 13:45 Resp 17 01/03/24 13:45 BP 97/62 01/03/24 13:45 Pulse Ox 96 01/03/24 13:45 FiO2 Intake & Output 01/02/24 01/03/24 01/03/24 18:59 06:59 18:59 Intake Total 1780 Output Total 200 300 1 Balance -200 1480 -1 Weight 60.781 kg Intake: Intake, IV Titration 1100 Amount Cefepime 2 gm In Sodium 100 Chloride 0.9% 100 ml @ 25 mls/hr IVPB Q8HR [facility] Rx# :[id number] Sodium Chloride 0.9% 1, 900 000 ml @ 75 mls/hr IV . [id number] [facility] Rx#:[id number] metroNIDAZOLE-NS PMX 500 100 mg In Saline 1 100ml.bag @ 100 mls/hr IVPB Q8HR [facility] Rx#:[id number] Oral 680 Output: Urine 200 300 1 Other: Voiding Method Bedside Commode Bedside Commode # Voids 1 2 # Bowel Movements 1 0 - Exam GENERAL EXAM: Alert, pleasant 73-year-old female, on room air, comfortable in no apparent distress. HEAD: Normocephalic. EYES: Normal reaction of pupils, equal size. NOSE: Clear with pink turbinates. THROAT: No erythema or exudates. NECK: No masses, no JVD. CHEST: No chest wall deformity. LUNGS: Equal air entry with no crackles, wheeze, rhonchi or dullness. CVS: S1 and S2 normal with no audible murmur, regular rhythm. ABDOMEN: No hepatosplenomegaly, normal bowel sounds, no guarding or rigidity. SPINE: No scoliosis or deformity SKIN: No rashes CENTRAL NERVOUS SYSTEM: No focal deficits, tone is normal in all 4 extremities. EXTREMITIES: There is no peripheral edema. No clubbing, no cyanosis. Peripheral pulses are intact. - Labs CBC & Chem 7: 01/03/24 09:45 01/03/24 08:10 Labs: Abnormal Lab Results - Last 24 Hours (Table) 01/02/24 01/02/24 01/02/24 Range/Units 06:39 15:50 17:16 WBC (3.8-10.6) k/uL RBC (3.80-5.40) m/uL Hgb (11.4-16.0) gm/dL Hct (34.0-46.0) % RDW (11.5-15.5) % Plt Count (150-450) k/uL Neutrophils # (Manual) (1.3-7.7) k/uL Lymphocytes # (Manual) (1.0-4.8) k/uL Chloride (98-107) mmol/L Carbon Dioxide (22-30) mmol/L BUN (7-17) mg/dL Creatinine (0.52-1.04) mg/dL Glucose (74-99) mg/dL POC Glucose (mg/dL) 159 H (70-110) mg/dL Plasma Lactic Acid [place] 2.8 H* (0.7-2.0) mmol/L Calcium (8.4-10.2) mg/dL Total Protein (6.3-8.2) g/dL Albumin (3.5-5.0) g/dL Free T3 pg/mL 1.90 L (2.30-4.20) pg/mL Cortisol 42.3 H (3.1-22.4) UG/DL 01/02/24 01/03/24 01/03/24 Range/Units 20:02 07:10 08:10 WBC (3.8-10.6) k/uL RBC (3.80-5.40) m/uL Hgb (11.4-16.0) gm/dL Hct (34.0-46.0) % RDW (11.5-15.5) % Plt Count (150-450) k/uL Neutrophils # (Manual) (1.3-7.7) k/uL Lymphocytes # (Manual) (1.0-4.8) k/uL Chloride 108 H (98-107) mmol/L Carbon Dioxide 17 L (22-30) mmol/L BUN 44 H (7-17) mg/dL Creatinine 1.22 H (0.52-1.04) mg/dL Glucose 141 H (74-99) mg/dL POC Glucose (mg/dL) 208 H 136 H (70-110) mg/dL Plasma Lactic Acid [place] (0.7-2.0) mmol/L Calcium 8.0 L (8.4-10.2) mg/dL Total Protein 6.2 L (6.3-8.2) g/dL Albumin 3.2 L (3.5-5.0) g/dL Free T3 pg/mL (2.30-4.20) pg/mL Cortisol (3.1-22.4) UG/DL 01/03/24 01/03/24 Range/Units 09:45 11:08 WBC 1.1 L* (3.8-10.6) k/uL RBC 2.86 L (3.80-5.40) m/uL Hgb 9.0 L D (11.4-16.0) gm/dL Hct 28.2 L (34.0-46.0) % RDW 18.2 H (11.5-15.5) % Plt Count 123 L (150-450) k/uL Neutrophils # (Manual) 0.01 L* (1.3-7.7) k/uL Lymphocytes # (Manual) 0.86 L (1.0-4.8) k/uL Chloride (98-107) mmol/L Carbon Dioxide (22-30) mmol/L BUN (7-17) mg/dL Creatinine (0.52-1.04) mg/dL Glucose (74-99) mg/dL POC Glucose (mg/dL) 152 H (70-110) mg/dL Plasma Lactic Acid [place] (0.7-2.0) mmol/L Calcium (8.4-10.2) mg/dL Total Protein (6.3-8.2) g/dL Albumin (3.5-5.0) g/dL Free T3 pg/mL (2.30-4.20) pg/mL Cortisol (3.1-22.4) UG/DL Assessment and Plan Assessment: Generalized weakness and fatigue secondary to lung cancer treatment with chemotherapy Leukopenia secondary to above, current white count 1.1. On Zarxio Anemia secondary to above, current hemoglobin 9.0 Stage IIIA squamous cell carcinoma of the lung diagnosed in late September 2023. She completed cycle 2 of 1 of neoadjuvant carboplatin/paclitaxel/Keytruda on 12/26/2023. 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 Brown at [facility] treated with resection and 4 cycles of Bendamustine/rituximab History significant for metastatic breast cancer who underwent autologous stem cell transplant in the with no evidence of disease recurrence, status post bilateral mastectomy History of coronary artery disease with previous coronary artery bypass grafting in 2017 History of ischemic cardiomyopathy status post biventricular AICD placement Diabetes mellitus Hypertension Hyperlipidemia Hypothyroidism Lifelong non-smoker Plan: The patient was seen and evaluated Chest x-ray, labs and medications reviewed Currently stable and on room air Continue the current treatment plan We will continue to follow I have personally seen and examined the patient, performed the documentation and the assessment and plan as written. Number of minutes spent on the visit: 10.
--- NOTE | 2024-01-03 14:39 | P.PN ---
Subjective Progress Note Date: 01/03/24 I am following-up with patient and mentation is improving per . Unable to obtain MRI since has AICD. Objective - Vital Signs Vital signs: Vital Signs Temp 99.7 F H 01/03/24 13:45 Pulse 108 H 01/03/24 13:45 Resp 17 01/03/24 13:45 BP 97/62 01/03/24 13:45 Pulse Ox 96 01/03/24 13:45 FiO2 Intake & Output 01/02/24 01/03/24 01/03/24 18:59 06:59 18:59 Intake Total 1780 Output Total 200 300 1 Balance -200 1480 -1 Weight 60.781 kg Intake: Intake, IV Titration 1100 Amount Cefepime 2 gm In Sodium 100 Chloride 0.9% 100 ml @ 25 mls/hr IVPB Q8HR [facility] Rx# :[id number] Sodium Chloride 0.9% 1, 900 000 ml @ 75 mls/hr IV . [id number] [facility] Rx#:[id number] metroNIDAZOLE-NS PMX 500 100 mg In Saline 1 100ml.bag @ 100 mls/hr IVPB Q8HR [facility] Rx#:[id number] Oral 680 Output: Urine 200 300 1 Other: Voiding Method Bedside Commode Bedside Commode # Voids 1 2 # Bowel Movements 1 0 - Exam General: Lying in bed and is not in acute distress. Neuro: Patient is awake, alert, oriented to self and place. Is minimally slow responding. No aphasia. Pupils are round, equal and reactive to light. No facial weakness. No dysarthria. Motor: Lifting uppers above gravity but above to have drift left > right with decrease tone. Some of the workup during his hospital visit consisted of: ALT is 88 most recent has stabilized. AST is 82 and has normalized. Magnesium is 1.3 and has normalize TSH: 1.07 CT head is reported as no acute intracranial process. routine EEG is abnormal. The background slowing suggestive of moderate encephalopathy. Otherwise there is no focal slowing, epileptiform discharges or seizure on the EEG. 2-D echo was reported as left ventricular ejection fraction of 20-25%. Apical hypokinesis. Calcified aortic valve with moderate aortic stenosis and severe aortic regurgitation. Severe mitral regurgitation. Moderate left atrial dilation. - Labs CBC & Chem 7: 01/03/24 09:45 01/03/24 08:10 Labs: Abnormal Lab Results - Last 24 Hours (Table) 01/02/24 01/02/24 01/02/24 Range/Units 06:39 15:50 17:16 WBC (3.8-10.6) k/uL RBC (3.80-5.40) m/uL Hgb (11.4-16.0) gm/dL Hct (34.0-46.0) % RDW (11.5-15.5) % Plt Count (150-450) k/uL Neutrophils # (Manual) (1.3-7.7) k/uL Lymphocytes # (Manual) (1.0-4.8) k/uL Chloride (98-107) mmol/L Carbon Dioxide (22-30) mmol/L BUN (7-17) mg/dL Creatinine (0.52-1.04) mg/dL Glucose (74-99) mg/dL POC Glucose (mg/dL) 159 H (70-110) mg/dL Plasma Lactic Acid [place] 2.8 H* (0.7-2.0) mmol/L Calcium (8.4-10.2) mg/dL Total Protein (6.3-8.2) g/dL Albumin (3.5-5.0) g/dL Free T3 pg/mL 1.90 L (2.30-4.20) pg/mL Cortisol 42.3 H (3.1-22.4) UG/DL 01/02/24 01/03/24 01/03/24 Range/Units 20:02 07:10 08:10 WBC (3.8-10.6) k/uL RBC (3.80-5.40) m/uL Hgb (11.4-16.0) gm/dL Hct (34.0-46.0) % RDW (11.5-15.5) % Plt Count (150-450) k/uL Neutrophils # (Manual) (1.3-7.7) k/uL Lymphocytes # (Manual) (1.0-4.8) k/uL Chloride 108 H (98-107) mmol/L Carbon Dioxide 17 L (22-30) mmol/L BUN 44 H (7-17) mg/dL Creatinine 1.22 H (0.52-1.04) mg/dL Glucose 141 H (74-99) mg/dL POC Glucose (mg/dL) 208 H 136 H (70-110) mg/dL Plasma Lactic Acid [place] (0.7-2.0) mmol/L Calcium 8.0 L (8.4-10.2) mg/dL Total Protein 6.2 L (6.3-8.2) g/dL Albumin 3.2 L (3.5-5.0) g/dL Free T3 pg/mL (2.30-4.20) pg/mL Cortisol (3.1-22.4) UG/DL 01/03/24 01/03/24 Range/Units 09:45 11:08 WBC 1.1 L* (3.8-10.6) k/uL RBC 2.86 L (3.80-5.40) m/uL Hgb 9.0 L D (11.4-16.0) gm/dL Hct 28.2 L (34.0-46.0) % RDW 18.2 H (11.5-15.5) % Plt Count 123 L (150-450) k/uL Neutrophils # (Manual) 0.01 L* (1.3-7.7) k/uL Lymphocytes # (Manual) 0.86 L (1.0-4.8) k/uL Chloride (98-107) mmol/L Carbon Dioxide (22-30) mmol/L BUN (7-17) mg/dL Creatinine (0.52-1.04) mg/dL Glucose (74-99) mg/dL POC Glucose (mg/dL) 152 H (70-110) mg/dL Plasma Lactic Acid [place] (0.7-2.0) mmol/L Calcium (8.4-10.2) mg/dL Total Protein (6.3-8.2) g/dL Albumin (3.5-5.0) g/dL Free T3 pg/mL (2.30-4.20) pg/mL Cortisol (3.1-22.4) UG/DL Assessment and Plan Assessment: This is a 73-year-old woman with history of remote breast cancer status post bilateral mastectomy, who has a recent diagnosis of non-small cell lung cancer and had chemoimmunotherapy about 7 days ago who presents because of generalized weakness. She in more weak, dropping thing on her hand and confused. On examination right upper extremity is more weak. Acute to subacute right upper extremity weakness, generalized weakness with confusion: No obvious stroke on CT and no seizur john paul EEG. Possible chemoimmunotherapy induced--mentation improving History of recent cell lung cancer post chemoimmunotherapy History of left breast cancer status post bilateral mastectomy the patient had radiation chemotherapy and genetic test and patient was positive BRCA2 Apical Hypokinesis with low EF of 20-25% on 2D echo. Severe aortic and mitral regurgitation. History of coronary artery disease Severe ischemic cardiomyopathy status post AICD Diabetes mellitus Plan: Cannot obtain MRI Brain since has AICD. Will get an CT head w/ and w/o to rule out any brain mets. Currently the patient is on aspirin 81, Plavix 75. Every 4 hours neuro checks Cardiac monitoring PT OT are consulted. Oncology team is on board. I.D. is on board. Patient has leukopenia and fever and unsure if chemoimmunotherapy induced. Consider cardiology consultation because of abnormal 2D echo We'll defer the rest of the medical measure the primary and other specialists The plan was discussed with the patient's . Time with Patient: Less than 30
--- NOTE | 2024-01-03 16:27 | CT ---
EXAMINATION TYPE: CT brain wo/w con DATE OF EXAM: 01/03/2024 COMPARISON: 01/02/2024 HISTORY: confusion/mets CT DLP: 2072.0 mGycm Automated exposure control for dose reduction was used. CONTRAST: CT scan of the head is performed with IV Contrast, patient injected with 80 mL of Isovue 300. FINDINGS: The ventricles, basal cisterns and sulci of the convexities are mildly enlarged consistent with mild generalized atrophy appropriate for the patient's age. There is moderate decreased density in the periventricular white matter consistent with moderate manager of employee relations piter ischemic white matter demyelination There is no acute intra or extra-axial hemorrhage. There is no mass effect or shift of the midline structures. Following contrast administration, there is no pathological enhancement throughout the brain parenchy ma and no evidence of metastatic disease. The posterior fossa including the brainstem, fourth ventricle and cerebellopontine angles are normal. The intraorbital contents appear normal and symmetric. Visualized paranasal sinuses and mastoid air cells are well aerated. The calvarium is intact. IMPRESSION: 1. Age appropriate senescent changes. 2. No evidence of metastatic disease. 3. No acute bleed or mass effect.
[2024-01-03] MEDS: droNABinol 2.5 MG CAP PO SCH (17:02)
[2024-01-03 17:03] LABS: Glucose,Whole Blood 117 mg/dL (70-110)
[2024-01-03 20:39] LABS: Glucose,Whole Blood 167 mg/dL (70-110)
[2024-01-03] MEDS: CEFEPIME 2 GM in SODIUM CHLORIDE 0.9% 100 ML IVPB SCH (20:50)
[2024-01-04 06:51] LABS: Glucose,Whole Blood 133 mg/dL (70-110)
[2024-01-04 09:48] LABS: ALT 41 U/L (8-44); AST 27 U/L (13-35); Albumin 3.1 g/dL (3.8-4.9); Albumin/Globulin Ratio 1.35 Ratio (1.60-3.17); Alkaline Phosphatase 102 U/L (41-126); BUN/Creat Ratio 30.93 Ratio (12.00-20.00); Blood Urea Nitrogen 43.3 mg/dL (9.0-27.0); Calcium 7.6 mg/dL (8.7-10.3); Chloride 109 mmol/L (96-109); Globulin 2.3 g/dL (1.6-3.3); Glucose 133 mg/dL (70-110); Potassium 3.1 mmol/L (3.5-5.5); Sodium 142 mmol/L (135-145); Total Bilirubin 0.5 mg/dL (0.3-1.2); Total Protein 5.4 g/dL (6.2-8.2)
[2024-01-04 10:23] LABS: Acanthocytes 2+; Basophils # (A) 0.01 X 10*3/uL (0.00-0.10); Basophils % (A) 0.5 %; Elliptocytes 2+; Eosinophils # (A) 0 X 10*3/uL (0.04-0.35); Eosinophils % (A) 0 %; HCT 28.5 % (37.2-46.3); HGB 8.6 g/dL (12.0-15.0); Immature Grans, Automated 0 %; Lymphocytes # (A) 1.03 X 10*3/uL (0.90-5.00); Lymphocytes % (A) 52.8 %; MCH 30.4 pg (27.0-32.0); MCHC 30.2 g/dL (32.0-37.0); MCV 100.7 FL (80.0-97.0); Mean Platelet Volume 11.9 FL (9.5-12.2); Monocytes # (A) 0.71 X 10*3/uL (0.20-1.00); Monocytes % (A) 36.4 %; NRBC Per 100 WBC 0 X 10*3/uL (0.00-0.01); Neutrophils % (A) 10.3 %; Platelet Count 102 X 10*3/uL (140-440); RBC 2.83 X 10*6/uL (4.10-5.20); RDW 18.6 % (11.5-14.5); WBC 1.95 X 10*3/uL (4.50-10.00)
--- NOTE | 2024-01-04 10:27 | P.PN ---
Subjective Progress Note Date: 01/03/24 Patient remains confused and somnolent. CT brain negative for acute intracranial processes. Chest x-ray revealing cardiomegaly, and mild left basilar atelectasis versus infiltrate. EEG shows background slowing suggestive of moderate encephalopathy, otherwise, no focal slowing or epileptiform discharge or seizure. Patient continues on IV antibiotics. Infectious disease and neurology following. WBC 1.1, hemoglobin 9.0, platelets 123,000. Receiving G- CSF daily Objective - Vital Signs Vital signs: Vital Signs Temp 99.7 F H 01/03/24 13:45 Pulse 108 H 01/03/24 13:45 Resp 17 01/03/24 13:45 BP 97/62 01/03/24 13:45 Pulse Ox 96 01/03/24 13:45 FiO2 Intake & Output 01/02/24 01/03/24 01/03/24 18:59 06:59 18:59 Intake Total 1780 Output Total 200 300 1 Balance -200 1480 -1 Weight 60.781 kg Intake: Intake, IV Titration 1100 Amount Cefepime 2 gm In Sodium 100 Chloride 0.9% 100 ml @ 25 mls/hr IVPB Q8HR [facility] Rx# :[id number] Sodium Chloride 0.9% 1, 900 000 ml @ 75 mls/hr IV . [id number] [facility] Rx#:[id number] metroNIDAZOLE-NS PMX 500 100 mg In Saline 1 100ml.bag @ 100 mls/hr IVPB Q8HR [facility] Rx#:[id number] Oral 680 Output: Urine 200 300 1 Other: Voiding Method Bedside Commode Bedside Commode # Voids 1 2 # Bowel Movements 1 0 - Constitutional General appearance: Present: no acute distress - Respiratory Details: breathing is even and unlabored - Cardiovascular Details: skin warm and dry - Integumentary Integumentary: Absent: cyanotic - Neurologic Neurologic Comment(s): confused, somnolent - Musculoskeletal Musculoskeletal: Present: generalized weakness - Labs CBC & Chem 7: 01/04/24 06:38 01/04/24 06:38 Labs: Abnormal Lab Results - Last 24 Hours (Table) 01/02/24 01/02/24 01/02/24 Range/Units 06:39 17:16 20:02 WBC (3.8-10.6) k/uL RBC (3.80-5.40) m/uL Hgb (11.4-16.0) gm/dL Hct (34.0-46.0) % RDW (11.5-15.5) % Plt Count (150-450) k/uL Neutrophils # (Manual) (1.3-7.7) k/uL Lymphocytes # (Manual) (1.0-4.8) k/uL Chloride (98-107) mmol/L Carbon Dioxide (22-30) mmol/L BUN (7-17) mg/dL Creatinine (0.52-1.04) mg/dL Glucose (74-99) mg/dL POC Glucose (mg/dL) 159 H 208 H (70-110) mg/dL Calcium (8.4-10.2) mg/dL Total Protein (6.3-8.2) g/dL Albumin (3.5-5.0) g/dL Free T3 pg/mL 1.90 L (2.30-4.20) pg/mL Cortisol 42.3 H (3.1-22.4) UG/DL 01/03/24 01/03/24 01/03/24 Range/Units 07:10 08:10 09:45 WBC 1.1 L* (3.8-10.6) k/uL RBC 2.86 L (3.80-5.40) m/uL Hgb 9.0 L D (11.4-16.0) gm/dL Hct 28.2 L (34.0-46.0) % RDW 18.2 H (11.5-15.5) % Plt Count 123 L (150-450) k/uL Neutrophils # (Manual) 0.01 L* (1.3-7.7) k/uL Lymphocytes # (Manual) 0.86 L (1.0-4.8) k/uL Chloride 108 H (98-107) mmol/L Carbon Dioxide 17 L (22-30) mmol/L BUN 44 H (7-17) mg/dL Creatinine 1.22 H (0.52-1.04) mg/dL Glucose 141 H (74-99) mg/dL POC Glucose (mg/dL) 136 H (70-110) mg/dL Calcium 8.0 L (8.4-10.2) mg/dL Total Protein 6.2 L (6.3-8.2) g/dL Albumin 3.2 L (3.5-5.0) g/dL Free T3 pg/mL (2.30-4.20) pg/mL Cortisol (3.1-22.4) UG/DL 01/03/24 01/03/24 Range/Units 11:08 17:02 WBC (3.8-10.6) k/uL RBC (3.80-5.40) m/uL Hgb (11.4-16.0) gm/dL Hct (34.0-46.0) % RDW (11.5-15.5) % Plt Count (150-450) k/uL Neutrophils # (Manual) (1.3-7.7) k/uL Lymphocytes # (Manual) (1.0-4.8) k/uL Chloride (98-107) mmol/L Carbon Dioxide (22-30) mmol/L BUN (7-17) mg/dL Creatinine (0.52-1.04) mg/dL Glucose (74-99) mg/dL POC Glucose (mg/dL) 152 H 117 H (70-110) mg/dL Calcium (8.4-10.2) mg/dL Total Protein (6.3-8.2) g/dL Albumin (3.5-5.0) g/dL Free T3 pg/mL (2.30-4.20) pg/mL Cortisol (3.1-22.4) UG/DL - Imaging and Cardiology Chest x-ray: report reviewed CT Scan - head: report reviewed EEG reviewed Assessment and Plan (1) Weakness Current Visit: Yes Status: Acute Priority: High Code(s): R53.1 - WEAKNESS SNOMED Code(s): 09158050 (2) Diarrhea Current Visit: Yes Status: Acute Priority: High Code(s): R19.7 - DIARRHEA, UNSPECIFIED SNOMED Code(s): 59520322 (3) Squamous cell carcinoma of lung, stage III Current Visit: Yes Status: Acute Priority: High Code(s): C34.90 - MALIGNANT NEOPLASM OF UNSP PART OF UNSP BRONCHUS OR LUNG SNOMED Code(s): 288091567 (4) Febrile neutropenia Current Visit: Yes Status: Acute Priority: High Code(s): D70.9 - NEUTROPENIA, UNSPECIFIED; R50.81 - FEVER PRESENTING WITH CONDITIONS CLASSIFIED ELSEWHERE SNOMED Code(s): 661260094 (5) Altered mental status Current Visit: Yes Status: Acute Priority: High Code(s): R41.82 - ALTERED MENTAL STATUS, UNSPECIFIED SNOMED Code(s): 499816499 Plan: Diarrhea, nausea, weakness, decreased oral intake: Presented with generalized weakness, nausea, decreased oral intake and diarrhea. Denies blood in stool/melena. Denies fever and chills. She reports taking lomotil with minor improvement in symptoms -C. difficile negative. Stool culture ordered -Scheduled and prn anti-diarrheals ordered. Diarrhea improved -Continue IV hydration and supportive medications -Referral placed to home health services due to progressing weakness and difficulties managing self care at home Chemo induced panctyopenia: -Today, WBC 1.1, hemoglobin 9.0, platelets 123,000. Receiving G-CSF daily with goal of ANC > 1000 -Febrile neutropenia noted. IV abx and pancultures ordered. ID following -CBC daily Altered mental status: Began to experience confusion and per staff was dropping items. -CT brain obtained and was negative for acute intracranial processes EEG shows background slowing suggestive of moderate encephalopathy, otherwise, no focal slowing or epileptiform discharge or seizure. -CT brain w/ contrast ordered to r/o mets, as she cannot have MRI due to AICD -Pancultures ordered. Urine culture negative, blood culture negative thus far. Chest x-ray revealing cardiomegaly, and mild left basilar atelectasis versus infiltrate. -Patient continues on IV antibiotics. Infectious disease and neurology following Stage IIIA non-small cell lung cancer: -Diagnosed in late September 2023 with recommendation for chemoimmunotherapy -Initially had planned to receive treatment in [place], but difficulty establishing at [facility] -Completed cycle 2 of carboplatin/paclitaxel/pembrolizumab on 12/26/23 -Will schedule clinic f/u upon discharge. Will need to discuss dose reduction due to treatment intolerance despite aggressive supportive care management. Will also need to consider addition of G-CSF to regimen and schedule clinic IV hydration s/p treatments and continue aggressive supportive care measures Doctor attests: I performed a history and physical examination of this patient, developed impression and plan of care. Discussed with dictator. I agree with dictators note, documented as a scribe.
[2024-01-04 11:36] LABS: Glucose,Whole Blood 177 mg/dL (70-110)
--- NOTE | 2024-01-04 13:35 | P.PN ---
Subjective Progress Note Date: 01/04/24 This is a very pleasant 73-year-old woman who follows with Dr. Arechiga in our office is a primary care patient. 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 She just recently received carboplatin, paclitaxel, and Keytruda on 12/26/2023. She presented here to the emergency room on 12/30/2023 with progressive weakness and poor appetite. Chest x-ray revealed no acute process. 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 ET scan of the brain revealed no acute intracranial process. White count 0.77. Hemoglobin 10.0. Platelets 153. Sodium 139. Potassium 4.2. Bicarb 20. BUN 31. Creatinine 1.1. Glucose 159. He is seen today in consultation on the regular medical floor. She is currently resting in bed. Awake and alert in no acute distress. She is quite weak and fatigued. She is maintaining good O2 saturations in the 90s on room air. Blood pressure stable. She is slightly tachycardic. She is has a Tmax of 101.3. Lactic acid 2.8. She is currently on cefepime and Flagyl. She is receiving Zarxio. Normal saline at 75 MLS per hour. The patient is seen today January 03, 2024 in follow-up on the regular medical floor. She is currently sitting up in bed. Awake and alert in no acute dist ress. Feeling a bit better today compared to yesterday. Chest x-ray revealed cardiomegaly. Mild left basilar atelectasis versus infiltrate. She is maintaining good O2 saturations in the 90s on room air. Afebrile. Hemodynamically stable. White count 1.1. Hemoglobin 9.0. Platelets 123. Sodium 138. Potassium 3.9. Bicarb 17. BUN 44. Creatinine 1.22. Glucose 141. She remains on cefepime and Flagyl. Continued on Zarxio. The patient is seen today January 04, 2020 for follow-up on the regular medical floor. She is currently sitting up at the bedside. Feeling better today. Awake and alert in no acute distress. She is maintaining O2 saturations in the 90s on room air. She is still having some abdominal discomfort. She states she is having bowel movements. Urine and blood cultures revealed no growth. White count 1.95. Hemoglobin 8.6. Platelets 102. Sodium 142. Potassium 3.1. Bicarb 19. BUN 43. Creatinine 1.4. Glucose 133. She remains on cefepime and Flagyl. Continued on Zarxio. Objective - Vital Signs Vital signs: Vital Signs Temp 98 F 01/04/24 06:55 Pulse 100 01/04/24 08:00 Resp 17 01/04/24 08:00 BP 96/62 01/04/24 06:55 Pulse Ox 96 01/04/24 06:55 FiO2 Intake & Output 01/03/24 01/04/24 01/04/24 18:59 06:59 18:59 Intake Total 1640 Output Total 1101 400 Balance -1101 1240 Weight 60.781 kg Intake: Intake, IV Titration 1100 Amount Cefepime 2 gm In Sodium 100 Chloride 0.9% 100 ml @ 25 mls/hr IVPB Q8HR [facility] Rx# :[id number] Sodium Chloride 0.9% 1, 900 000 ml @ 75 mls/hr IV . [id number] [facility] Rx#:[id number] metroNIDAZOLE-NS PMX 500 100 mg In Saline 1 100ml.bag @ 100 mls/hr IVPB Q8HR [facility] Rx#:[id number] Oral 540 Output: Urine 1101 400 Other: Voiding Method External Catheter External Catheter # Bowel Movements 2 - Exam GENERAL EXAM: Alert, oriented 73-year-old female, sitting up in a chair, on room air, comfortable in no apparent distress. HEAD: Normocephalic. EYES: Normal reaction of pupils, equal size. NOSE: Clear with pink turbinates. THROAT: No erythema or exudates. NECK: No masses, no JVD. CHEST: No chest wall deformity. LUNGS: Equal air entry with no crackles, wheeze, rhonchi or dullness. CVS: S1 and S2 normal with no audible murmur, regular rhythm. ABDOMEN: No hepatosplenomegaly, normal bowel sounds, no guarding or rigidity. SPINE: No scoliosis or deformity SKIN: No rashes CENTRAL NERVOUS SYSTEM: No focal deficits, tone is normal in all 4 extremities. EXTREMITIES: There is no peripheral edema. No clubbing, no cyanosis. Peripheral pulses are intact. - Labs CBC & Chem 7: 01/04/24 06:38 01/04/24 06:38 Labs: Abnormal Lab Results - Last 24 Hours (Table) 01/03/24 01/03/24 01/04/24 Range/Units 17:02 20:33 06:38 WBC 1.95 L (4.50-10.00) X 10*3/uL RBC 2.83 L (4.10-5.20) X 10*6/uL Hgb 8.6 L (12.0-15.0) g/dL Hct 28.5 L (37.2-46.3) % MCV 100.7 H (80.0-97.0) FL MCHC 30.2 L (32.0-37.0) g/dL RDW 18.6 H (11.5-14.5) % Plt Count 102 L (140-440) X 10*3/uL Neutrophils # 0.20 A* (1.80-7.70) X 10*3/uL Eosinophils # 0 L (0.04-0.35) X 10*3/uL Elliptocytes 2+ A Acanthocytes (Spur) 2+ A Potassium (3.5-5.5) mmol/L Carbon Dioxide (21.6-31.8) mmol/L Anion Gap (4.00-12.00) mmol/L BUN (9.0-27.0) mg/dL Est GFR (CKD-EPI) (>=60) BUN/Creatinine Ratio (12.00-20.00) Ratio Glucose (70-110) mg/dL POC Glucose (mg/dL) 117 H 167 H (70-110) mg/dL Calcium (8.7-10.3) mg/dL Total Protein (6.2-8.2) g/dL Albumin (3.8-4.9) g/dL Albumin/Globulin Ratio (1.60-3.17) Ratio 01/04/24 01/04/24 01/04/24 Range/Units 06:38 06:50 11:35 WBC (4.50-10.00) X 10*3/uL RBC (4.10-5.20) X 10*6/uL Hgb (12.0-15.0) g/dL Hct (37.2-46.3) % MCV (80.0-97.0) FL MCHC (32.0-37.0) g/dL RDW (11.5-14.5) % Plt Count (140-440) X 10*3/uL Neutrophils # (1.80-7.70) X 10*3/uL Eosinophils # (0.04-0.35) X 10*3/uL Elliptocytes Acanthocytes (Spur) Potassium 3.1 L (3.5-5.5) mmol/L Carbon Dioxide 19.0 L (21.6-31.8) mmol/L Anion Gap 14.00 H (4.00-12.00) mmol/L BUN 43.3 H (9.0-27.0) mg/dL Est GFR (CKD-EPI) 39 L (>=60) BUN/Creatinine Ratio 30.93 H (12.00-20.00) Ratio Glucose 133 H (70-110) mg/dL POC Glucose (mg/dL) 133 H 177 H (70-110) mg/dL Calcium 7.6 L (8.7-10.3) mg/dL Total Protein 5.4 L (6.2-8.2) g/dL Albumin 3.1 L (3.8-4.9) g/dL Albumin/Globulin Ratio 1.35 L (1.60-3.17) Ratio Microbiology - Last 24 Hours (Table) 01/03/24 08:10 Blood Culture - Preliminary Blood 01/02/24 14:47 Urine Culture - Final Urine,Voided 01/02/24 15:50 Blood Culture - Preliminary Blood Assessment and Plan Assessment: Generalized weakness and fatigue secondary to lung cancer treatment with chemotherapy Leukopenia secondary to above, current white count 1.95. On Zarxio Anemia secondary to above, current hemoglobin 8.6 Thrombocytopenia, current platelet count 102,000 Stage IIIA squamous cell carcinoma of the lung diagnosed in late September 2023. She completed cycle 2 of 1 of neoadjuvant carboplatin/paclitaxel/Keytruda on 12/26/2023. 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 Brown at [facility] treated with resection and 4 cycles of Bendamustine/rituximab History significant for metastatic breast cancer who underwent autologous stem cell transplant in the with no evidence of disease recurrence, status post bilateral mastectomy History of coronary artery disease with previous coronary artery bypass grafting in 2017 History of ischemic cardiomyopathy status post biventricular AICD placement Diabetes mellitus Hypertension Hyperlipidemia Hypothyroidism Lifelong non-smoker Plan: The patient was seen and evaluated Labs and medications reviewed Currently stable and on room air Feeling stronger and up in a chair Continued on Zarxio Continued on cefepime and Flagyl We will continue to follow I have personally seen and examined the patient, performed the documentation and the assessment and plan as written. Number of minutes spent on the visit: 10.
--- NOTE | 2024-01-04 15:07 | P.PN ---
Subjective Progress Note Date: 01/04/24 Perla Kim, is a 73-year-old female patient of Dr. Chin who presents with complaints of weakness and diarrhea secondary to recent chemotherapy. Patient is currently under second round of chemotherapy for lung cancer. Patient reports last treatment was 5 days ago patient reports that she feels very weak and has no appetite. Patient has past medical history of asthma, COPD, diabetes mellitus, hypertension, AICD placement, lung cancer. Chest x-ray completed showing no acute process COPD with elevated right hemidiaphragm which can be associated with phrenic nerve palsy. Lab work revealing WBC of 5.0, hemoglobin 11.5, platelets 180 potassium elevated at 5.4 creatinine 1.42 and bun 49. Liver enzymes slightly elevated ALT 88, AST 82 total bili 1.7. Patient was negative for influenza RSV COVID-19. Patient will be admitted patient started on IV fluid. Oncology service is consulted. Repeat labs ordered. Stool for C. diff ordered. Zofran when necessary ordered On 01/01/2024 patient was seen and examined on the medical floor she is alert and oriented 3 in no apparent distress she is complaining of generalized weakness otherwise she denies any complaints, vital examination reveals a temperature of 97.8 pulse 107 respiration 19 and blood pressure 108/70 pulse ox 96% on room air. On 01/02/2024 patient was seen and examined on the medical floor she is alert and oriented 3 in no apparent distress she is complaining of generalized weakness, temperature is slightly elevated at 99.5 heart rate 1:15 respiration 16 blood pressure 103/68 white blood count is 0.77 hemoglobin 10.0 platelet count 153 lactic acid is elevated at 2.8 On 01/03/2024 patient's alert and oriented 3. Family at bedside reports improvement with mentation. Patient reports improvement with diarrhea.patient had low-grade temp last night 99.5. Current vital signs temp 98.2, heart rate 109, respiratory rate 18, blood pressure 122/64 with a pulse ox 97% on room air. Infectious disease, pulmonary,an oncology service is following. Patient remains on IV Maxipime and IV Flagyl. 01/03. Patient seen and examined. Patient sitting upright in the chair. Complaining of poor appetite. Patient had a Velazquez placed yesterday. Denies abdominal pain. REVIEW OF SYSTEMS: CONSTITUTIONAL: No fever, no malaise,. CARDIOVASCULAR: No chest pain, no palpitations, no syncope. PULMONARY: No shortness of breath, no cough, GASTROINTESTINAL: No diarrhea, no abdominal pain. NEUROLOGICAL: No headaches, no weakness, PHYSICAL EXAMINATION: GENERAL: The patient is alert and oriented x3, not in any acute distress. Chronically ill looking HEENT: Pupils are round and equally reacting to light. EOMI. No scleral icterus. No conjunctival pallor. Normocephalic, atraumatic. No pharyngeal erythema. No thyromegaly. CARDIOVASCULAR: S1 and S2 present. No murmurs, rubs, or gallops. PULMONARY: Chest is clear to auscultation, no wheezing or crackles. ABDOMEN: Soft, nontender, nondistended, normoactive bowel sounds. No palpable organomegaly. MUSCULOSKELETAL: No joint swelling or deformity. EXTREMITIES: No cyanosis, clubbing, or pedal edema. NEUROLOGICAL: Gross neurological examination did not reveal any focal deficits. SKIN: No rashes. Assessment and plan Weakness and diarrhea secondary to chemotherapy Pancytopenia Squamous cell carcinoma on receiving chemotherapy stage III non-small cell lung cancer History of COPD History of autologous stem cell transplant History of large B-cell lymphoma History of chronic kidney disease History of ischemic cardiomyopathy status post AICD History of coronary artery disease Diabetes mellitus Hypertension Hyperlipidemia Hypothyroidism Monitor vital signs Monitor CBC Monitor CMP Continue telemetry monitoring Encourage use of incentive spirometer Continue IV cefepime and Flagyl continue IV fluids Continue aspirin and Plavix Continue filgrastim Pulmonology following ID following Hematology oncology following Labs and medication were reviewed.. Continue same treatment. Continue with symptomatic treatment. Resume home medication. Monitor labs and vitals. DVT and GI prophylaxis. Further recommendations as per clinical course of the anel ent Dictation was produced using [employer] dictation software. please excuse any grammatical, word or spelling errors. Objective - Vital Signs Vital signs: Vital Signs Temp 97.8 F 01/04/24 11:35 Pulse 101 H 01/04/24 11:35 Resp 19 01/04/24 11:35 BP 93/61 01/04/24 11:35 Pulse Ox 98 01/04/24 11:35 FiO2 Intake & Output 01/03/24 01/04/24 01/04/24 18:59 06:59 18:59 Intake Total 1640 Output Total 1101 400 Balance -1101 1240 Weight 60.781 kg Intake: Intake, IV Titration 1100 Amount Cefepime 2 gm In Sodium 100 Chloride 0.9% 100 ml @ 25 mls/hr IVPB Q8HR [facility] Rx# :[id number] Sodium Chloride 0.9% 1, 900 000 ml @ 75 mls/hr IV . [id number] [facility] Rx#:[id number] metroNIDAZOLE-NS PMX 500 100 mg In Saline 1 100ml.bag @ 100 mls/hr IVPB Q8HR [facility] Rx#:[id number] Oral 540 Output: Urine 1101 400 Other: Voiding Method External Catheter External Catheter # Bowel Movements 2 - Labs CBC & Chem 7: 01/04/24 06:38 01/04/24 06:38 Labs: Abnormal Lab Results - Last 24 Hours (Table) 01/03/24 01/03/24 01/04/24 Range/Units 17:02 20:33 06:38 WBC 1.95 L (4.50-10.00) X 10*3/uL RBC 2.83 L (4.10-5.20) X 10*6/uL Hgb 8.6 L (12.0-15.0) g/dL Hct 28.5 L (37.2-46.3) % MCV 100.7 H (80.0-97.0) FL MCHC 30.2 L (32.0-37.0) g/dL RDW 18.6 H (11.5-14.5) % Plt Count 102 L (140-440) X 10*3/uL Neutrophils # 0.20 A* (1.80-7.70) X 10*3/uL Eosinophils # 0 L (0.04-0.35) X 10*3/uL Elliptocytes 2+ A Acanthocytes (Spur) 2+ A Potassium (3.5-5.5) mmol/L Carbon Dioxide (21.6-31.8) mmol/L Anion Gap (4.00-12.00) mmol/L BUN (9.0-27.0) mg/dL Est GFR (CKD-EPI) (>=60) BUN/Creatinine Ratio (12.00-20.00) Ratio Glucose (70-110) mg/dL POC Glucose (mg/dL) 117 H 167 H (70-110) mg/dL Calcium (8.7-10.3) mg/dL Total Protein (6.2-8.2) g/dL Albumin (3.8-4.9) g/dL Albumin/Globulin Ratio (1.60-3.17) Ratio 01/04/24 01/04/24 01/04/24 Range/Units 06:38 06:50 11:35 WBC (4.50-10.00) X 10*3/uL RBC (4.10-5.20) X 10*6/uL Hgb (12.0-15.0) g/dL Hct (37.2-46.3) % MCV (80.0-97.0) FL MCHC (32.0-37.0) g/dL RDW (11.5-14.5) % Plt Count (140-440) X 10*3/uL Neutrophils # (1.80-7.70) X 10*3/uL Eosinophils # (0.04-0.35) X 10*3/uL Elliptocytes Acanthocytes (Spur) Potassium 3.1 L (3.5-5.5) mmol/L Carbon Dioxide 19.0 L (21.6-31.8) mmol/L Anion Gap 14.00 H (4.00-12.00) mmol/L BUN 43.3 H (9.0-27.0) mg/dL Est GFR (CKD-EPI) 39 L (>=60) BUN/Creatinine Ratio 30.93 H (12.00-20.00) Ratio Glucose 133 H (70-110) mg/dL POC Glucose (mg/dL) 133 H 177 H (70-110) mg/dL Calcium 7.6 L (8.7-10.3) mg/dL Total Protein 5.4 L (6.2-8.2) g/dL Albumin 3.1 L (3.8-4.9) g/dL Albumin/Globulin Ratio 1.35 L (1.60-3.17) Ratio Microbiology - Last 24 Hours (Table) 01/03/24 08:10 Blood Culture - Preliminary Blood 01/02/24 14:47 Urine Culture - Final Urine,Voided 01/02/24 15:50 Blood Culture - Preliminary Blood
[2024-01-04] MEDS: POTASSIUM CHLORIDE ER 20 MEQ TAB.ER PO STA (15:49)
--- NOTE | 2024-01-04 17:00 | P.PN ---
Subjective Progress Note Date: 01/03/24 Principal diagnosis: Reason for follow-up is febrile neutropenia Patient is a 73-year female with a past medical history significant for diabetes mellitus hypertension ID coronary artery disease hypothyroidism presenting to the hospital for evaluation of generalized weakness significant diarrhea patient subsequently spiked a fever prompting this consultation. On today's evaluation that is 01/03/2024, patient did have improvement her fever pattern with a low-grade fever of 99.7 this afternoon patient is currently breathing comfortably on room air no chest pain shortness of breath or cough no abdominal pain or any worsening diarrhea. Patient white count of 1.1, creatinine is 1.22 cultures pending Objective - Vital Signs Vital signs: Vital Signs Temp 98.2 F 01/03/24 07:05 Pulse 109 H 01/03/24 07:05 Resp 18 01/03/24 07:05 BP 100/64 01/03/24 07:05 Pulse Ox 97 01/03/24 07:05 FiO2 Intake & Output 01/02/24 01/03/24 01/03/24 18:59 06:59 18:59 Intake Total 1780 Output Total 200 300 1 Balance -200 1480 -1 Weight 60.781 kg Intake: Intake, IV Titration 1100 Amount Cefepime 2 gm In Sodium 100 Chloride 0.9% 100 ml @ 25 mls/hr IVPB Q8HR [facility] Rx# :[id number] Sodium Chloride 0.9% 1, 900 000 ml @ 75 mls/hr IV . [id number] [facility] Rx#:[id number] metroNIDAZOLE-NS PMX 500 100 mg In Saline 1 100ml.bag @ 100 mls/hr IVPB Q8HR [facility] Rx#:[id number] Oral 680 Output: Urine 200 300 1 Other: Voiding Method Bedside Commode Bedside Commode # Voids 1 2 # Bowel Movements 1 0 - Exam GENERAL DESCRIPTION: An elderly female lying in bed in no distress RESPIRATORY SYSTEM: Unlabored breathing , decreased breath sounds at bases HEART: S1 S2 regular rate and rhythm , ABDOMEN: Soft , no tenderness EXTREMITIES: No edema feet - Labs CBC & Chem 7: 01/03/24 09:45 01/03/24 08:10 Labs: Abnormal Lab Results - Last 24 Hours (Table) 01/02/24 01/02/24 01/02/24 Range/Units 06:39 15:50 17:16 WBC (3.8-10.6) k/uL RBC (3.80-5.40) m/uL Hgb (11.4-16.0) gm/dL Hct (34.0-46.0) % RDW (11.5-15.5) % Plt Count (150-450) k/uL Neutrophils # (Manual) (1.3-7.7) k/uL Lymphocytes # (Manual) (1.0-4.8) k/uL Chloride (98-107) mmol/L Carbon Dioxide (22-30) mmol/L BUN (7-17) mg/dL Creatinine (0.52-1.04) mg/dL Glucose (74-99) mg/dL POC Glucose (mg/dL) 159 H (70-110) mg/dL Plasma Lactic Acid [place] 2.8 H* (0.7-2.0) mmol/L Calcium (8.4-10.2) mg/dL Total Protein (6.3-8.2) g/dL Albumin (3.5-5.0) g/dL Free T3 pg/mL 1.90 L (2.30-4.20) pg/mL Cortisol 42.3 H (3.1-22.4) UG/DL 01/02/24 01/03/24 01/03/24 Range/Units 20:02 07:10 08:10 WBC (3.8-10.6) k/uL RBC (3.80-5.40) m/uL Hgb (11.4-16.0) gm/dL Hct (34.0-46.0) % RDW (11.5-15.5) % Plt Count (150-450) k/uL Neutrophils # (Manual) (1.3-7.7) k/uL Lymphocytes # (Manual) (1.0-4.8) k/uL Chloride 108 H (98-107) mmol/L Carbon Dioxide 17 L (22-30) mmol/L BUN 44 H (7-17) mg/dL Creatinine 1.22 H (0.52-1.04) mg/dL Glucose 141 H (74-99) mg/dL POC Glucose (mg/dL) 208 H 136 H (70-110) mg/dL Plasma Lactic Acid [place] (0.7-2.0) mmol/L Calcium 8.0 L (8.4-10.2) mg/dL Total Protein 6.2 L (6.3-8.2) g/dL Albumin 3.2 L (3.5-5.0) g/dL Free T3 pg/mL (2.30-4.20) pg/mL Cortisol (3.1-22.4) UG/DL 01/03/24 01/03/24 Range/Units 09:45 11:08 WBC 1.1 L* (3.8-10.6) k/uL RBC 2.86 L (3.80-5.40) m/uL Hgb 9.0 L D (11.4-16.0) gm/dL Hct 28.2 L (34.0-46.0) % RDW 18.2 H (11.5-15.5) % Plt Count 123 L (150-450) k/uL Neutrophils # (Manual) 0.01 L* (1.3-7.7) k/uL Lymphocytes # (Manual) 0.86 L (1.0-4.8) k/uL Chloride (98-107) mmol/L Carbon Dioxide (22-30) mmol/L BUN (7-17) mg/dL Creatinine (0.52-1.04) mg/dL Glucose (74-99) mg/dL POC Glucose (mg/dL) 152 H (70-110) mg/dL Plasma Lactic Acid [place] (0.7-2.0) mmol/L Calcium (8.4-10.2) mg/dL Total Protein (6.3-8.2) g/dL Albumin (3.5-5.0) g/dL Free T3 pg/mL (2.30-4.20) pg/mL Cortisol (3.1-22.4) UG/DL Assessment and Plan (1) Febrile neutropenia Current Visit: Yes Status: Acute Code(s): D70.9 - NEUTROPENIA, UNSPECIFIED; R50.81 - FEVER PRESENTING WITH CONDITIONS CLASSIFIED ELSEWHERE SNOMED Code(s): 284644260 (2) Diarrhea Current Visit: Yes Status: Acute Priority: High Code(s): R19.7 - DIARRHEA, UNSPECIFIED SNOMED Code(s): 02188541 Plan: 1patient with febrile neutropenia in this patient who did have a fever of 101 F patient did have a white count of 0.77 neutrophil count of only 0.01 patient initially presented to hospital with significant diarrhea stool for C. difficile has been negative chest x-ray left lower lobe infiltrate however do not have significant respiratory symptoms source underlying pneumonia versus abdominal 2-cultures are currently pending 3-patient to continue with cefepime and Flagyl while waiting for the workup to be completed Dictation was produced using [employer] dictation software. please excuse any grammatical, word or spelling errors.
--- NOTE | 2024-01-04 17:01 | P.PN ---
Subjective Progress Note Date: 01/04/24 Principal diagnosis: Reason for follow-up is febrile neutropenia Patient is a 73-year female with a past medical history significant for diabetes mellitus hypertension [place] coronary artery disease hypothyroidism presenting to the hospital for evaluation of generalized weakness significant diarrhea patient subsequently spiked a fever prompting this consultation. On today's evaluation that is 01/04/2024,the patient did have improvement in her fever pattern and is afebrile this morning, patient is breathing comfortably on room air, the patient denies chest pain shortness of breath and no significant cough, patient denies abdominal pain, no nausea vomiting mention did have some diarrhea last night. Patient white count is 1.95 creatinine is 1.4 cultures currently pending Objective - Vital Signs Vital signs: Vital Signs Temp 97.8 F 01/04/24 11:35 Pulse 101 H 01/04/24 11:35 Resp 19 01/04/24 11:35 BP 93/61 01/04/24 11:35 Pulse Ox 98 01/04/24 11:35 FiO2 Intake & Output 01/03/24 01/04/24 01/04/24 18:59 06:59 18:59 Intake Total 1640 Output Total 1101 400 Balance -1101 1240 Weight 60.781 kg Intake: Intake, IV Titration 1100 Amount Cefepime 2 gm In Sodium 100 Chloride 0.9% 100 ml @ 25 mls/hr IVPB Q8HR [facility] Rx# :[id number] Sodium Chloride 0.9% 1, 900 000 ml @ 75 mls/hr IV . [id number] [facility] Rx#:[id number] metroNIDAZOLE-NS PMX 500 100 mg In Saline 1 100ml.bag @ 100 mls/hr IVPB Q8HR [facility] Rx#:[id number] Oral 540 Output: Urine 1101 400 Other: Voiding Method External Catheter External Catheter # Bowel Movements 2 - Exam GENERAL DESCRIPTION: An elderly female lying in bed in no distress RESPIRATORY SYSTEM: Unlabored breathing , decreased breath sounds at bases HEART: S1 S2 regular rate and rhythm , ABDOMEN: Soft , no tenderness EXTREMITIES: No edema feet - Labs CBC & Chem 7: 01/04/24 06:38 01/04/24 06:38 Labs: Abnormal Lab Results - Last 24 Hours (Table) 01/03/24 01/03/24 01/04/24 Range/Units 17:02 20:33 06:38 WBC 1.95 L (4.50-10.00) X 10*3/uL RBC 2.83 L (4.10-5.20) X 10*6/uL Hgb 8.6 L (12.0-15.0) g/dL Hct 28.5 L (37.2-46.3) % MCV 100.7 H (80.0-97.0) FL MCHC 30.2 L (32.0-37.0) g/dL RDW 18.6 H (11.5-14.5) % Plt Count 102 L (140-440) X 10*3/uL Neutrophils # 0.20 A* (1.80-7.70) X 10*3/uL Eosinophils # 0 L (0.04-0.35) X 10*3/uL Elliptocytes 2+ A Acanthocytes (Spur) 2+ A Potassium (3.5-5.5) mmol/L Carbon Dioxide (21.6-31.8) mmol/L Anion Gap (4.00-12.00) mmol/L BUN (9.0-27.0) mg/dL Est GFR (CKD-EPI) (>=60) BUN/Creatinine Ratio (12.00-20.00) Ratio Glucose (70-110) mg/dL POC Glucose (mg/dL) 117 H 167 H (70-110) mg/dL Calcium (8.7-10.3) mg/dL Total Protein (6.2-8.2) g/dL Albumin (3.8-4.9) g/dL Albumin/Globulin Ratio (1.60-3.17) Ratio 01/04/24 01/04/24 01/04/24 Range/Units 06:38 06:50 11:35 WBC (4.50-10.00) X 10*3/uL RBC (4.10-5.20) X 10*6/uL Hgb (12.0-15.0) g/dL Hct (37.2-46.3) % MCV (80.0-97.0) FL MCHC (32.0-37.0) g/dL RDW (11.5-14.5) % Plt Count (140-440) X 10*3/uL Neutrophils # (1.80-7.70) X 10*3/uL Eosinophils # (0.04-0.35) X 10*3/uL Elliptocytes Acanthocytes (Spur) Potassium 3.1 L (3.5-5.5) mmol/L Carbon Dioxide 19.0 L (21.6-31.8) mmol/L Anion Gap 14.00 H (4.00-12.00) mmol/L BUN 43.3 H (9.0-27.0) mg/dL Est GFR (CKD-EPI) 39 L (>=60) BUN/Creatinine Ratio 30.93 H (12.00-20.00) Ratio Glucose 133 H (70-110) mg/dL POC Glucose (mg/dL) 133 H 177 H (70-110) mg/dL Calcium 7.6 L (8.7-10.3) mg/dL Total Protein 5.4 L (6.2-8.2) g/dL Albumin 3.1 L (3.8-4.9) g/dL Albumin/Globulin Ratio 1.35 L (1.60-3.17) Ratio Microbiology - Last 24 Hours (Table) 01/03/24 08:10 Blood Culture - Preliminary Blood 01/02/24 14:47 Urine Culture - Final Urine,Voided 01/02/24 15:50 Blood Culture - Preliminary Blood Assessment and Plan (1) Febrile neutropenia Current Visit: Yes Status: Acute Priority: High Code(s): D70.9 - NEUTROPENIA, UNSPECIFIED; R50.81 - FEVER PRESENTING WITH CONDITIONS CLASSIFIED ELSEWHERE SNOMED Code(s): 147128505 (2) Diarrhea Current Visit: Yes Status: Acute Priority: High Code(s): R19.7 - DIARRHEA, UNSPECIFIED SNOMED Code(s): 89867021 Plan: 1patient with febrile neutropenia in this patient who did have a fever of 101 F patient did have a white count of 0.77 neutrophil count of only 0.01 patient initially presented to hospital with significant diarrhea stool for C. difficile has been negative chest x-ray left lower lobe infiltrate however do not have significant respiratory symptoms source underlying pneumonia versus abdominal 2-patient did have resolution of her fever and white count is improving cultures currently pending 3-patient to continue with cefepime and Flagyl while waiting for the workup to be completed Dictation was produced using dragon dictation software. please excuse any grammatical, word or spelling errors. Time with Patient: Less than 30
[2024-01-04 17:09] LABS: Glucose,Whole Blood 112 mg/dL (70-110)
[2024-01-04 20:06] LABS: Glucose,Whole Blood 141 mg/dL (70-110)
[2024-01-05] MEDS: NYSTATIN 100,000 UNIT/ML SUSP 500,000 UNIT/5 ML CUP PO PRN (05:25)
[2024-01-05 06:30] LABS: Anisocytosis Slight; Basophils % (A) 0 %; Eosinophils % (A) 1 %; HCT 29.8 % (34.0-46.0); Hypochromasia Marked; Lymphocytes # (A) 1.4 k/uL (1.0-4.8); Lymphocytes % (A) 26 %; MCH 31.2 pg (25.0-35.0); MCHC 30.1 g/dL (31.0-37.0); Macrocytosis Moderate; Monocytes # (A) 0.8 k/uL (0-1.0); Monocytes % (A) 16 %; Neutrophils # (A) 2.5 k/uL (1.3-7.7); Neutrophils % (A) 48 %; Platelet Count 95 k/uL (150-450); RBC 2.87 m/uL (3.80-5.40); RDW 18.2 % (11.5-15.5); WBC 5.2 k/uL (3.8-10.6)
[2024-01-05 06:54] LABS: MCV 103.9 fL (80.0-100.0)
[2024-01-05 07:06] LABS: Glucose,Whole Blood 107 mg/dL (70-110)
[2024-01-05 07:38] LABS: Band Neutrophils % 6 %; Eosinophils # (M) 0.05 k/uL (0-0.7); Lymphocytes # (M) 1.46 k/uL (1.0-4.8); Neutrophils % (M) 41 %; Nucleated Red Blood Cells 0 /100 WBC (0-0); Total Cells Counted 200
[2024-01-05 07:40] LABS: Dohle Bodies Present; Poikilocytosis (M) Present
[2024-01-05 09:44] LABS: ALT 49 U/L (8-44); AST 33 U/L (13-35); Albumin 3.1 g/dL (3.8-4.9); Albumin/Globulin Ratio 1.35 Ratio (1.60-3.17); Alkaline Phosphatase 116 U/L (41-126); BUN/Creat Ratio 31.07 Ratio (12.00-20.00); Blood Urea Nitrogen 43.5 mg/dL (9.0-27.0); Calcium 8.3 mg/dL (8.7-10.3); Carbon Dioxide 17.1 mmol/L (21.6-31.8); Chloride 108 mmol/L (96-109); Globulin 2.3 g/dL (1.6-3.3); Glucose 86 mg/dL (70-110); Sodium 139 mmol/L (135-145); Total Bilirubin 0.5 mg/dL (0.3-1.2); Total Protein 5.4 g/dL (6.2-8.2)
[2024-01-05 12:23] LABS: Glucose,Whole Blood 112 mg/dL (70-110)
--- NOTE | 2024-01-05 12:44 | P.PN ---
Subjective Progress Note Date: 01/05/24 This is a very pleasant 73-year-old woman who follows with Dr. Arechiga in our office is a primary care patient. 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 She just recently received carboplatin, paclitaxel, and Keytruda on 12/26/2023. She presented here to the emergency room on 12/30/2023 with progressive weakness and poor appetite. Chest x-ray revealed no acute process. 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 ET scan of the brain revealed no acute intracranial process. White count 0.77. Hemoglobin 10.0. Platelets 153. Sodium 139. Potassium 4.2. Bicarb 20. BUN 31. Creatinine 1.1. Glucose 159. He is seen today in consultation on the regular medical floor. She is currently resting in bed. Awake and alert in no acute distress. She is quite weak and fatigued. She is maintaining good O2 saturations in the 90s on room air. Blood pressure stable. She is slightly tachycardic. She is has a Tmax of 101.3. Lactic acid 2.8. She is currently on cefepime and Flagyl. She is receiving Zarxio. Normal saline at 75 MLS per hour. The patient is seen today January 03, 2024 in follow-up on the regular medical floor. She is currently sitting up in bed. Awake and alert in no acute dist ress. Feeling a bit better today compared to yesterday. Chest x-ray revealed cardiomegaly. Mild left basilar atelectasis versus infiltrate. She is maintaining good O2 saturations in the 90s on room air. Afebrile. Hemodynamically stable. White count 1.1. Hemoglobin 9.0. Platelets 123. Sodium 138. Potassium 3.9. Bicarb 17. BUN 44. Creatinine 1.22. Glucose 141. She remains on cefepime and Flagyl. Continued on Zarxio. The patient is seen today January 04, 2020 for follow-up on the regular medical floor. She is currently sitting up at the bedside. Feeling better today. Awake and alert in no acute distress. She is maintaining O2 saturations in the 90s on room air. She is still having some abdominal discomfort. She states she is having bowel movements. Urine and blood cultures revealed no growth. White count 1.95. Hemoglobin 8.6. Platelets 102. Sodium 142. Potassium 3.1. Bicarb 19. BUN 43. Creatinine 1.4. Glucose 133. She remains on cefepime and Flagyl. Continued on Zarxio. The patient is seen today January 05, 2024 in follow-up on the regular medical floor. Currently sitting up in a chair. Awake and alert in no acute distress. Maintaining good O2 saturations in the upper 90s on room air. Afebrile. Hemodynamically stable, denies any worsening shortness of breath, cough or congestion. She is feeling quite a bit better. Much stronger. She has normal saline at 75 MLS per hour. White count 5.2. Hemoglobin 9.0. Platelets 95,000. Sodium 139. Potassium 3.0. Bicarb 17. BUN 43. Creatinine 1.4. Glucose 86. She is continued on cefepime and Flagyl. Continued on Zarxio Objective - Vital Signs Vital signs: Vital Signs Temp 97.4 F L 01/05/24 11:42 Pulse 88 01/05/24 11:42 Resp 16 01/05/24 11:42 BP 82/49 01/05/24 11:42 Pulse Ox 99 01/05/24 11:42 FiO2 Intake & Output 01/04/24 01/05/24 01/05/24 18:59 06:59 18:59 Intake Total 360 Output Total 550 350 Balance -190 -350 Intake: Oral 360 Output: Urine 550 350 Other: Voiding Method External Catheter Indwelling Catheter Indwelling Catheter # Bowel Movements 1 1 - Exam GENERAL EXAM: Alert, oriented, pleasant 73-year-old female, up in a chair, on room air, in no apparent distress. HEAD: Normocephalic. EYES: Normal reaction of pupils, equal size. NOSE: Clear with pink turbinates. THROAT: No erythema or exudates. NECK: No masses, no JVD. CHEST: No chest wall deformity. LUNGS: Equal air entry with no crackles, wheeze, rhonchi or dullness. CVS: S1 and S2 normal with no audible murmur, regular rhythm. ABDOMEN: No hepatosplenomegaly, normal bowel sounds, no guarding or rigidity. SPINE: No scoliosis or deformity SKIN: No rashes CENTRAL NERVOUS SYSTEM: No focal deficits, tone is normal in all 4 extremities. EXTREMITIES: There is no peripheral edema. No clubbing, no cyanosis. Peripheral pulses are intact. - Labs CBC & Chem 7: 01/05/24 05:51 01/05/24 05:51 Labs: Abnormal Lab Results - Last 24 Hours (Table) 01/04/24 01/04/24 01/05/24 Range/Units 17:01 20:03 05:51 RBC 2.87 L (3.80-5.40) m/uL Hgb 9.0 L (11.4-16.0) gm/dL Hct 29.8 L (34.0-46.0) % MCV 103.9 H D (80.0-100.0) fL MCHC 30.1 L (31.0-37.0) g/dL RDW 18.2 H (11.5-15.5) % Plt Count 95 L (150-450) k/uL Monocytes # (Manual) 1.30 H (0-1.0) k/uL Potassium (3.5-5.5) mmol/L Carbon Dioxide (21.6-31.8) mmol/L Anion Gap (4.00-12.00) mmol/L BUN (9.0-27.0) mg/dL Est GFR (CKD-EPI) (>=60) BUN/Creatinine Ratio (12.00-20.00) Ratio POC Glucose (mg/dL) 112 H 141 H (70-110) mg/dL Calcium (8.7-10.3) mg/dL ALT (8-44) U/L Total Protein (6.2-8.2) g/dL Albumin (3.8-4.9) g/dL Albumin/Globulin Ratio (1.60-3.17) Ratio 01/05/24 01/05/24 Range/Units 05:51 11:46 RBC (3.80-5.40) m/uL Hgb (11.4-16.0) gm/dL Hct (34.0-46.0) % MCV (80.0-100.0) fL MCHC (31.0-37.0) g/dL RDW (11.5-15.5) % Plt Count (150-450) k/uL Monocytes # (Manual) (0-1.0) k/uL Potassium 3.0 L (3.5-5.5) mmol/L Carbon Dioxide 17.1 L (21.6-31.8) mmol/L Anion Gap 13.90 H (4.00-12.00) mmol/L BUN 43.5 H (9.0-27.0) mg/dL Est GFR (CKD-EPI) 39 L (>=60) BUN/Creatinine Ratio 31.07 H (12.00-20.00) Ratio POC Glucose (mg/dL) 112 H (70-110) mg/dL Calcium 8.3 L (8.7-10.3) mg/dL ALT 49 H (8-44) U/L Total Protein 5.4 L (6.2-8.2) g/dL Albumin 3.1 L (3.8-4.9) g/dL Albumin/Globulin Ratio 1.35 L (1.60-3.17) Ratio Microbiology - Last 24 Hours (Table) 01/02/24 15:50 Blood Culture - Preliminary Blood 01/03/24 08:10 Blood Culture - Preliminary Blood 01/02/24 14:47 Urine Culture - Final Urine,Voided Assessment and Plan Assessment: Generalized weakness and fatigue secondary to lung cancer treatment with chemotherapy Leukopenia secondary to above, current white count 5.2. On Zarxio Anemia secondary to above, current hemoglobin 9.0 Thrombocytopenia, current platelet count 95,000 Stage IIIA squamous cell carcinoma of the lung diagnosed in late September 2023. She completed cycle 2 of 1 of neoadjuvant carboplatin/paclitaxel/Keytruda on 12/26/2023. 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 Brown at [facility] treated with resection and 4 cycles of Bendamustine/rituximab History significant for metastatic breast cancer who underwent autologous stem cell transplant in the with no evidence of disease recurrence, status post bilateral mastectomy History of coronary artery disease with previous coronary artery bypass grafting in 2017 History of ischemic cardiomyopathy status post biventricular AICD placement Diabetes mellitus Hypertension Hyperlipidemia Hypothyroidism Lifelong non-smoker Plan: The patient was seen and evaluated Labs and medications reviewed Currently stable and on room air Antibiotics per ID services Home once cleared by oncology I have personally seen and examined the patient, performed the documentation and the assessment and plan as written. Number of minutes spent on the visit: 10.
--- NOTE | 2024-01-05 12:44 | P.PN ---
Subjective Progress Note Date: 01/05/24 I am following-up wit patient and she is accompanied with her who feels she is doing drastically better. He feels she is more awake and right upper extremity is improved. Patient feels she is improving. Objective - Vital Signs Vital signs: Vital Signs Temp 97.4 F L 01/05/24 11:42 Pulse 88 01/05/24 11:42 Resp 16 01/05/24 11:42 BP 82/49 01/05/24 11:42 Pulse Ox 99 01/05/24 11:42 FiO2 Intake & Output 01/04/24 01/05/24 01/05/24 18:59 06:59 18:59 Intake Total 360 Output Total 550 350 Balance -190 -350 Intake: Oral 360 Output: Urine 550 350 Other: Voiding Method External Catheter Indwelling Catheter Indwelling Catheter # Bowel Movements 1 1 - Exam General: Sitting in a recliner chair and is not in acute distress. Neuro: Patient is awake, alert, oriented to self, place and year. Is more awake and responsive today. She is following simple commands. No aphasia. Pupils are round, equal and reactive to light. No facial weakness. No dysarthria. Motor: Lifting uppers above gravity but above gravity but has mild drift on the left upper. Strength is left upper is 4+ but there is limitation because of chronic lymphedema. Otherwise strength is 5/5 throughout. Cerebellar: Normal finger to nose but some dysmetria on the left. Some of the workup during his hospital visit consisted of: ALT is 88 most recent has stabilized. AST is 82 and has normalized. Magnesium is 1.3 and has normalize TSH: 1.07 CT head is reported as no acute intracranial process. routine EEG is abnormal. The background slowing suggestive of moderate encephalopathy. Otherwise there is no focal slowing, epileptiform discharges or seizure on the EEG. 2-D echo was reported as left ventricular ejection fraction of 20-25%. Apical hypokinesis. Calcified aortic valve with moderate aortic stenosis and severe aortic regurgitation. Severe mitral regurgitation. Moderate left atrial dilation. Repeat CT head w/ and w/o: Is age appropriate senescent changes. No evidence of metastatic disease. No acute bleed or mass effect. I felt there is ?calcification small foci over left cerebellar and temporal. - Labs CBC & Chem 7: 01/05/24 05:51 03/31/24 05:51 Labs: Abnormal Lab Results - Last 24 Hours (Table) 01/04/24 01/04/24 01/05/24 Range/Units 17:01 20:03 05:51 RBC 2.87 L (3.80-5.40) m/uL Hgb 9.0 L (11.4-16.0) gm/dL Hct 29.8 L (34.0-46.0) % MCV 103.9 H D (80.0-100.0) fL MCHC 30.1 L (31.0-37.0) g/dL RDW 18.2 H (11.5-15.5) % Plt Count 95 L (150-450) k/uL Monocytes # (Manual) 1.30 H (0-1.0) k/uL Potassium (3.5-5.5) mmol/L Carbon Dioxide (21.6-31.8) mmol/L Anion Gap (4.00-12.00) mmol/L BUN (9.0-27.0) mg/dL Est GFR (CKD-EPI) (>=60) BUN/Creatinine Ratio (12.00-20.00) Ratio POC Glucose (mg/dL) 112 H 141 H (70-110) mg/dL Calcium (8.7-10.3) mg/dL ALT (8-44) U/L Total Protein (6.2-8.2) g/dL Albumin (3.8-4.9) g/dL Albumin/Globulin Ratio (1.60-3.17) Ratio 01/05/24 01/05/24 Range/Units 05:51 11:46 RBC (3.80-5.40) m/uL Hgb (11.4-16.0) gm/dL Hct (34.0-46.0) % MCV (80.0-100.0) fL MCHC (31.0-37.0) g/dL RDW (11.5-15.5) % Plt Count (150-450) k/uL Monocytes # (Manual) (0-1.0) k/uL Potassium 3.0 L (3.5-5.5) mmol/L Carbon Dioxide 17.1 L (21.6-31.8) mmol/L Anion Gap 13.90 H (4.00-12.00) mmol/L BUN 43.5 H (9.0-27.0) mg/dL Est GFR (CKD-EPI) 39 L (>=60) BUN/Creatinine Ratio 31.07 H (12.00-20.00) Ratio POC Glucose (mg/dL) 112 H (70-110) mg/dL Calcium 8.3 L (8.7-10.3) mg/dL ALT 49 H (8-44) U/L Total Protein 5.4 L (6.2-8.2) g/dL Albumin 3.1 L (3.8-4.9) g/dL Albumin/Globulin Ratio 1.35 L (1.60-3.17) Ratio Microbiology - Last 24 Hours (Table) 01/02/24 15:50 Blood Culture - Preliminary Blood 01/03/24 08:10 Blood Culture - Preliminary Blood 01/02/24 14:47 Urine Culture - Final Urine,Voided Assessment and Plan Assessment: This is a 73-year-old woman with history of remote breast cancer status post bilateral mastectomy, who has a recent diagnosis of non-small cell lung cancer and had chemoimmunotherapy about 7 days ago who presents because of generalized weakness. She in more weak, dropping thing on her hand and confused. On examination right upper extremity is more weak. Acute to subacute right upper extremity weakness, generalized weakness with confusion: No obvious stroke on CT and no seizure on EEG. Possible chemoimmunotherapy induced--mentation improving and strength improved Left upper extremity edema with some dysmetria likely due to lymphedema History of recent cell lung cancer post chemoimmunotherapy History of left breast cancer status post bilateral mastectomy the patient had radiation chemotherapy and genetic test and patient was positive BRCA2 Apical Hypokinesis with low EF of 20-25% on 2D echo. Severe aortic and mitral regurgitation. History of coronary artery disease Severe ischemic cardiomyopathy status post AICD Diabetes mellitus Plan: Cannot obtain MRI Brain since has AICD. Consider MRI Brain as outpatient that is AICD compatible. Repeat CT head w/ and w/o: Is age appropriate senescent changes. No evidence of metastatic disease. No acute bleed or mass effect. I felt there is ?calcification small foci over left cerebellar and tempora. I will obtain CT cervical since she has neck pain and has left upper extremity weakness to rule out any mets which I feel met to cervical is low. Cannot pursue with contrast since low GFR. Currently the patient is on aspirin 81mg, Plavix 75mg daily. Every 4 hours neuro checks Cardiac monitoring PT OT are consulted. Oncology team is on board. I.D. is on board. Patient has leukopenia and fever and unsure if chemoimmunotherapy induced. Consider cardiology consultation because of abnormal 2D echo We'll defer the rest of the medical measure the primary and other specialists The plan was discussed with the patient and her . Dr. Laura will resume neurology service tomorrow A.M. Time with Patient: Less than 30
[2024-01-05] MEDS: POTASSIUM CHLORIDE ER 20 MEQ TAB.ER PO STA ×2 (13:14→13:39)
--- NOTE | 2024-01-05 13:33 | P.PN ---
Subjective Progress Note Date: 01/05/24 Perla Kim, is a 73-year-old female patient of Dr. Chin who presents with complaints of weakness and diarrhea secondary to recent chemotherapy. Patient is currently under second round of chemotherapy for lung cancer. Patient reports last treatment was 5 days ago patient reports that she feels very weak and has no appetite. Patient has past medical history of asthma, COPD, diabetes mellitus, hypertension, AICD placement, lung cancer. Chest x-ray completed showing no acute process COPD with elevated right hemidiaphragm which can be associated with phrenic nerve palsy. Lab work revealing WBC of 5.0, hemoglobin 11.5, platelets 180 potassium elevated at 5.4 creatinine 1.42 and bun 49. Liver enzymes slightly elevated ALT 88, AST 82 total bili 1.7. Patient was negative for influenza RSV COVID-19. Patient will be admitted patient started on IV fluid. Oncology service is consulted. Repeat labs ordered. Stool for C. diff ordered. Zofran when necessary ordered On 01/01/2024 patient was seen and examined on the medical floor she is alert and oriented 3 in no apparent distress she is complaining of generalized weakness otherwise she denies any complaints, vital examination reveals a temperature of 97.8 pulse 107 respiration 19 and blood pressure 108/70 pulse ox 96% on room air. On 01/02/2024 patient was seen and examined on the medical floor she is alert and oriented 3 in no apparent distress she is complaining of generalized weakness, temperature is slightly elevated at 99.5 heart rate 1:15 respiration 16 blood pressure 103/68 white blood count is 0.77 hemoglobin 10.0 platelet count 153 lactic acid is elevated at 2.8 On 01/03/2024 patient's alert and oriented 3. Family at bedside reports improvement with mentation. Patient reports improvement with diarrhea.patient had low-grade temp last night 99.5. Current vital signs temp 98.2, heart rate 109, respiratory rate 18, blood pressure 122/64 with a pulse ox 97% on room air. Infectious disease, pulmonary,an oncology service is following. Patient remains on IV Maxipime and IV Flagyl. 01/03. Patient seen and examined. Patient sitting upright in the chair. Complaining of poor appetite. Patient had a Velazquez placed yesterday. Denies abdominal pain. 01/04. Patient seen and examined. Neurology ordered CT cervical spine as patient was having neck pain. REVIEW OF SYSTEMS: CONSTITUTIONAL: No fever, no malaise,. CARDIOVASCULAR: No chest pain, no palpitations, no syncope. PULMONARY: No shortness of breath, no cough, GASTROINTESTINAL: No diarrhea, no abdominal pain. NEUROLOGICAL: No headaches, no weakness, PHYSICAL EXAMINATION: GENERAL: The patient is alert and oriented x3, not in any acute distress. Chronically ill looking HEENT: Pupils are round and equally reacting to light. EOMI. No scleral icterus. No conjunctival pallor. Normocephalic, atraumatic. No pharyngeal erythema. No thyromegaly. CARDIOVASCULAR: S1 and S2 present. No murmurs, rubs, or gallops. PULMONARY: Chest is clear to auscultation, no wheezing or crackles. ABDOMEN: Soft, nontender, nondistended, normoactive bowel sounds. No palpable organomegaly. MUSCULOSKELETAL: No joint swelling or deformity. EXTREMITIES: No cyanosis, clubbing, or pedal edema. NEUROLOGICAL: Gross neurological examination did not reveal any focal deficits. SKIN: No rashes. Assessment and plan Weakness and diarrhea secondary to chemotherapy Pancytopenia Squamous cell carcinoma on receiving chemotherapy stage III non-small cell lung cancer History of COPD History of autologous stem cell transplant History of large B-cell lymphoma History of chronic kidney disease History of ischemic cardiomyopathy status post AICD History of coronary artery disease Diabetes mellitus Hypertension Hyperlipidemia Hypothyroidism Monitor vital signs Monitor CBC Monitor CMP Continue telemetry monitoring Encourage use of incentive spirometer Continue IV cefepime and Flagyl continue IV fluids Continue aspirin and Plavix CT cervical spine ordered Continue filgrastim Pulmonology following ID following Hematology oncology following Labs and medication were reviewed.. Continue same treatment. Continue with symptomatic treatment. Resume home medication. Monitor labs and vitals. DVT and GI prophylaxis. Further recommendations as per clinical course of the patient Dictation was produced using [employer] dictation software. please excuse any grammatical, word or spelling errors. Objective - Vital Signs Vital signs: Vital Signs Temp 97.4 F L 01/05/24 11:42 Pulse 88 01/05/24 11:42 Resp 16 01/05/24 11:42 BP 82/49 01/05/24 11:42 Pulse Ox 99 01/05/24 11:42 FiO2 Intake & Output 01/04/24 01/05/24 01/05/24 18:59 06:59 18:59 Intake Total 360 Output Total 550 350 Balance -190 -350 Intake: Oral 360 Output: Urine 550 350 Other: Voiding Method External Catheter Indwelling Catheter Indwelling Catheter # Bowel Movements 1 1 - Labs CBC & Chem 7: 01/05/24 05:51 01/05/24 05:51 Labs: Abnormal Lab Results - Last 24 Hours (Table) 01/04/24 01/04/24 01/05/24 Range/Units 17:01 20:03 05:51 RBC 2.87 L (3.80-5.40) m/uL Hgb 9.0 L (11.4-16.0) gm/dL Hct 29.8 L (34.0-46.0) % MCV 103.9 H D (80.0-100.0) fL MCHC 30.1 L (31.0-37.0) g/dL RDW 18.2 H (11.5-15.5) % Plt Count 95 L (150-450) k/uL Monocytes # (Manual) 1.30 H (0-1.0) k/uL Potassium (3.5-5.5) mmol/L Carbon Dioxide (21.6-31.8) mmol/L Anion Gap (4.00-12.00) mmol/L BUN (9.0-27.0) mg/dL Est GFR (CKD-EPI) (>=60) BUN/Creatinine Ratio (12.00-20.00) Ratio POC Glucose (mg/dL) 112 H 141 H (70-110) mg/dL Calcium (8.7-10.3) mg/dL ALT (8-44) U/L Total Protein (6.2-8.2) g/dL Albumin (3.8-4.9) g/dL Albumin/Globulin Ratio (1.60-3.17) Ratio 01/05/24 01/05/24 Range/Units 05:51 11:46 RBC (3.80-5.40) m/uL Hgb (11.4-16.0) gm/dL Hct (34.0-46.0) % MCV (80.0-100.0) fL MCHC (31.0-37.0) g/dL RDW (11.5-15.5) % Plt Count (150-450) k/uL Monocytes # (Manual) (0-1.0) k/uL Potassium 3.0 L (3.5-5.5) mmol/L Carbon Dioxide 17.1 L (21.6-31.8) mmol/L Anion Gap 13.90 H (4.00-12.00) mmol/L BUN 43.5 H (9.0-27.0) mg/dL Est GFR (CKD-EPI) 39 L (>=60) BUN/Creatinine Ratio 31.07 H (12.00-20.00) Ratio POC Glucose (mg/dL) 112 H (70-110) mg/dL Calcium 8.3 L (8.7-10.3) mg/dL ALT 49 H (8-44) U/L Total Protein 5.4 L (6.2-8.2) g/dL Albumin 3.1 L (3.8-4.9) g/dL Albumin/Globulin Ratio 1.35 L (1.60-3.17) Ratio Microbiology - Last 24 Hours (Table) 01/03/24 08:10 Blood Culture - Preliminary Blood 01/02/24 15:50 Blood Culture - Preliminary Blood
--- NOTE | 2024-01-05 14:12 | CT ---
EXAMINATION TYPE: CT cervical spine wo con DATE OF EXAM: 01/05/2024 COMPARISON: None HISTORY: neck pain with left upper extremity weakness CT DLP: 300.70 mGycm CONTRAST: None CT of the cervical spine is performed in the axial plane at 2 mm thick sections. [place] nstructed images in the coronal, and sagittal plane are reviewed on the computer. No acute fractures are evident. Vertebral body alignment is normal. Disc heights are preserved. Very subtle disc bulging C3-4 may be present with mild anterior thecal s ac contact. No spinal canal stenosis is present. Minimal central disc bulge may be present at C4-5 wi thout spinal canal stenosis. Vertebral body heights are preserved. No spinal canal stenosis is evident No neural foraminal stenosis is evident. IMPRESSION: 1. Couple small central protrusions of disc type density is C3-4 and C4-5. Follow-up MRI can be per formed as clinically indicated. No suspicious acute osseous abnormality.
--- NOTE | 2024-01-05 16:30 | P.PN ---
Subjective Progress Note Date: 01/05/24 Principal diagnosis: Reason for follow-up is febrile neutropenia Patient is a 73-year female with a past medical history significant for diabetes mellitus hypertension [place] coronary artery disease hypothyroidism presenting to the hospital for evaluation of generalized weakness significant diarrhea patient subsequently spiked a fever prompting this consultation. On today's evaluation that is 01/05/2024,the patient remains to be afebrile, patient is on room air not requiring supplemental oxygen and denies any shortness of breath no chest pain or cough.Patient denies having any nausea or vomiting, no abdominal pain and no diarrhea has been reported by the nursing st aff. Patient white count is 5.2, creatinine is 1.4 blood cultures so far pending Objective - Vital Signs Vital signs: Vital Signs Temp 97.4 F L 01/05/24 11:42 Pulse 88 01/05/24 11:42 Resp 16 01/05/24 11:42 BP 82/49 01/05/24 11:42 Pulse Ox 99 01/05/24 11:42 FiO2 Intake & Output 01/04/24 01/05/24 01/05/24 18:59 06:59 18:59 Intake Total 360 Output Total 550 350 Balance -190 -350 Intake: Oral 360 Output: Urine 550 350 Other: Voiding Method External Catheter Indwelling Catheter Indwelling Catheter # Bowel Movements 1 1 - Labs CBC & Chem 7: 01/05/24 05:51 01/05/24 05:51 Labs: Abnormal Lab Results - Last 24 Hours (Table) 01/04/24 01/04/24 01/05/24 Range/Units 17:01 20:03 05:51 RBC 2.87 L (3.80-5.40) m/uL Hgb 9.0 L (11.4-16.0) gm/dL Hct 29.8 L (34.0-46.0) % MCV 103.9 H D (80.0-100.0) fL MCHC 30.1 L (31.0-37.0) g/dL RDW 18.2 H (11.5-15.5) % Plt Count 95 L (150-450) k/uL Monocytes # (Manual) 1.30 H (0-1.0) k/uL Potassium (3.5-5.5) mmol/L Carbon Dioxide (21.6-31.8) mmol/L Anion Gap (4.00-12.00) mmol/L BUN (9.0-27.0) mg/dL Est GFR (CKD-EPI) (>=60) BUN/Creatinine Ratio (12.00-20.00) Ratio POC Glucose (mg/dL) 112 H 141 H (70-110) mg/dL Calcium (8.7-10.3) mg/dL ALT (8-44) U/L Total Protein (6.2-8.2) g/dL Albumin (3.8-4.9) g/dL Albumin/Globulin Ratio (1.60-3.17) Ratio 01/05/24 01/05/24 Range/Units 05:51 11:46 RBC (3.80-5.40) m/uL Hgb (11.4-16.0) gm/dL Hct (34.0-46.0) % MCV (80.0-100.0) fL MCHC (31.0-37.0) g/dL RDW (11.5-15.5) % Plt Count (150-450) k/uL Monocytes # (Manual) (0-1.0) k/uL Potassium 3.0 L (3.5-5.5) mmol/L Carbon Dioxide 17.1 L (21.6-31.8) mmol/L Anion Gap 13.90 H (4.00-12.00) mmol/L BUN 43.5 H (9.0-27.0) mg/dL Est GFR (CKD-EPI) 39 L (>=60) BUN/Creatinine Ratio 31.07 H (12.00-20.00) Ratio POC Glucose (mg/dL) 112 H (70-110) mg/dL Calcium 8.3 L (8.7-10.3) mg/dL ALT 49 H (8-44) U/L Total Protein 5.4 L (6.2-8.2) g/dL Albumin 3.1 L (3.8-4.9) g/dL Albumin/Globulin Ratio 1.35 L (1.60-3.17) Ratio Microbiology - Last 24 Hours (Table) 01/03/24 08:10 Blood Culture - Preliminary Blood 01/02/24 15:50 Blood Culture - Preliminary Blood Assessment and Plan (1) Febrile neutropenia Current Visit: Yes Status: Acute Priority: High Code(s): D70.9 - NEUTROPENIA, UNSPECIFIED; R50.81 - FEVER PRESENTING WITH CONDITIONS CLASSIFIED ELSEWHERE SNOMED Code(s): 412472217 (2) Diarrhea Current Visit: Yes Status: Acute Priority: High Code(s): R19.7 - DIARRHEA, UNSPECIFIED SNOMED Code(s): 99307154 Plan: 1patient with febrile neutropenia in this patient who did have a fever of 101 F patient did have a white count of 0.77 neutrophil count of only 0.01 patient initially presented to hospital with significant diarrhea stool for C. difficile has been negative chest x-ray left lower lobe infiltrate however do not have significant respiratory symptoms source underlying pneumonia versus abdominal 2-patient did have resolution of her fever and white count is improving cultures so far pending 3-patient to continue with cefepime and Flagyl and monitor clinical course closely Dictation was produced using [employer] dictation software. please excuse any grammatical, word or spelling errors. Time with Patient: Less than 30
[2024-01-05 17:14] LABS: Glucose,Whole Blood 100 mg/dL (70-110)
[2024-01-05 20:13] LABS: Glucose,Whole Blood 134 mg/dL (70-110)
[2024-01-06] MEDS: SODIUM CHLORIDE 0.9% 500 ML 500 ML IV ONE (02:23)
[2024-01-06 07:09] LABS: Glucose,Whole Blood 89 mg/dL (70-110)
[2024-01-06 08:20] LABS: ALT 38 U/L (4-34); AST 27 U/L (14-36); African American GFR (CKD) 42 (>60 ml/min/1.73 sqM); Albumin 2.3 g/dL (3.5-5.0); Albumin/Globulin Ratio 0.9; Alkaline Phosphatase 143 U/L (38-126); Anion Gap 8 mmol/L; Blood Urea Nitrogen 47 mg/dL (7-17); Calcium 7.7 mg/dL (8.4-10.2); Carbon Dioxide 14 mmol/L (22-30); Chloride 116 mmol/L (98-107); Globulin 2.5 g/dL; Glucose 75 mg/dL (74-99); Non-African American GFR(CKD) 37 (>60 ml/min/1.73 sqM); Potassium 3.6 mmol/L (3.5-5.1); Sodium 138 mmol/L (137-145); Total Bilirubin 0.5 mg/dL (0.2-1.3); Total Protein 4.8 g/dL (6.3-8.2)
[2024-01-06] MEDS: MIDODRINE 5 MG TAB PO PRN (09:21)
[2024-01-06 09:59] LABS: Anisocytosis Slight; HCT 30.6 % (34.0-46.0); HGB 9.1 gm/dL (11.4-16.0); Hypochromasia Marked; MCH 30.7 pg (25.0-35.0); MCHC 29.6 g/dL (31.0-37.0); MCV 103.7 fL (80.0-100.0); Macrocytosis Moderate; Mean Platelet Volume 10.9; RBC 2.96 m/uL (3.80-5.40); RDW 18.3 % (11.5-15.5)
[2024-01-06 10:19] LABS: Platelet Count 95 k/uL (150-450)
[2024-01-06 10:51] LABS: Band Neutrophils % 5 %; Eosinophils # (M) 0.15 k/uL (0-0.7); Myelocytes # (M) 0.15 k/uL (0); Myelocytes % 1 %; Neutrophils % (M) 70 %; Nucleated Red Blood Cells 2 /100 WBC (0-0); Total Cells Counted 200
[2024-01-06 10:54] LABS: Lymphocytes # (M) 2.06 k/uL (1.0-4.8); Monocytes # (M) 1.62 k/uL (0-1.0); WBC 14.7 k/uL (3.8-10.6)
[2024-01-06 10:59] LABS: Poikilocytosis (M) Present
[2024-01-06 11:52] LABS: Glucose,Whole Blood 103 mg/dL (70-110)
--- NOTE | 2024-01-06 16:04 | P.PN ---
Subjective Progress Note Date: 01/06/24 No acute events. Patient has had significant improvement in mentation. Alert and oriented 3, answering questions appropriately, reporting generalized weakness. Denies nausea and vomiting, tolerating diet well. Had 2 episodes of diarrhea last night. No reported episodes today. C. difficile negative. Patient afebrile. Continues on IV antibiotic. WBC improved, WBC 5.2, ANC 2.5, G-CSF discontinued. Objective - Vital Signs Vital signs: Vital Signs Temp 97.3 F L 01/06/24 07:41 Pulse 87 01/06/24 10:49 Resp 16 01/06/24 07:41 BP 99/61 01/06/24 10:49 Pulse Ox 99 01/06/24 10:49 FiO2 Intake & Output 01/05/24 01/06/24 01/06/24 18:59 06:59 18:59 Intake Total 240 1740 Output Total 300 200 Balance -60 1540 Intake: Intake, IV Titration 1500 Amount Cefepime 2 gm In Sodium 100 Chloride 0.9% 100 ml @ 25 mls/hr IVPB Q12HR [facility] Rx #:[id number] Sodium Chloride 0.9% 1, 800 000 ml @ 75 mls/hr IV . [id number] [facility] Rx#:[id number] Sodium Chloride 0.9% 500 500 ml 500 ml @ 999 mls/hr IV .Q31M [facility] Rx#:[id number] metroNIDAZOLE-NS PMX 500 100 mg In Saline 1 100ml.bag @ 100 mls/hr IVPB Q8HR [facility] Rx#:[id number] Oral 240 240 Output: Urine 300 200 Other: Voiding Method Indwelling Catheter Indwelling Catheter Indwelling Catheter # Bowel Movements 1 - Constitutional General appearance: Present: average body habitus, no acute distress - EENT Eyes: Present: anicteric sclerae, EOMI ENT: Present: hearing grossly normal - Respiratory Details: Breathing even and unlabored - Cardiovascular Details: Skin warm and dry - Gastrointestinal General gastrointestinal: Present: soft. Absent: tenderness - Integumentary Integumentary: Absent: cyanotic - Neurologic Neurologic Comment(s): No focal deficits - Musculoskeletal Musculoskeletal: Present: generalized weakness - Psychiatric Psychiatric: Present: A&O x's 3 - Labs CBC & Chem 7: 01/06/24 07:46 01/06/24 07:46 Labs: Abnormal Lab Results - Last 24 Hours (Table) 01/05/24 01/06/24 01/06/24 Range/Units 20:08 07:46 07:46 WBC 14.7 H (3.8-10.6) k/uL RBC 2.96 L (3.80-5.40) m/uL Hgb 9.1 L (11.4-16.0) gm/dL Hct 30.6 L (34.0-46.0) % MCV 103.7 H (80.0-100.0) fL MCHC 29.6 L (31.0-37.0) g/dL RDW 18.3 H (11.5-15.5) % Plt Count 95 L (150-450) k/uL Neutrophils # (Manual) 11.00 H (1.3-7.7) k/uL Monocytes # (Manual) 1.62 H (0-1.0) k/uL Myelocytes # (Manual) 0.15 H (0) k/uL Nucleated RBCs 2 H (0-0) /100 WBC Chloride 116 H (98-107) mmol/L Carbon Dioxide 14 L (22-30) mmol/L BUN 47 H (7-17) mg/dL Creatinine 1.41 H (0.52-1.04) mg/dL POC Glucose (mg/dL) 134 H (70-110) mg/dL Calcium 7.7 L (8.4-10.2) mg/dL ALT 38 H (4-34) U/L Alkaline Phosphatase 143 H (38-126) U/L Total Protein 4.8 L (6.3-8.2) g/dL Albumin 2.3 L (3.5-5.0) g/dL Microbiology - Last 24 Hours (Table) 01/04/24 03:30 Stool Culture - Preliminary Stool 01/02/24 15:50 Blood Culture - Preliminary Blood 01/03/24 08:10 Blood Culture - Preliminary Blood - Imaging and Cardiology CT Scan - head: report reviewed Assessment and Plan (1) Weakness Current Visit: Yes Status: Acute Priority: High Code(s): R53.1 - WEAKNESS SNOMED Code(s): 16002211 (2) Diarrhea Current Visit: Yes Status: Acute Priority: High Code(s): R19.7 - DIARRHEA, UNSPECIFIED SNOMED Code(s): 73670484 (3) Squamous cell carcinoma of lung, stage III Current Visit: Yes Status: Acute Priority: High Code(s): C34.90 - MALIGNANT NEOPLASM OF UNSP PART OF UNSP BRONCHUS OR LUNG SNOMED Code(s): 278150505 (4) Febrile neutropenia Current Visit: Yes Status: Acute Priority: High Code(s): D70.9 - N EUTROPENIA, UNSPECIFIED; R50.81 - FEVER PRESENTING WITH CONDITIONS CLASSIFIED ELSEWHERE SNOMED Code(s): 020706570 (5) Altered mental status Current Visit: Yes Status: Acute Priority: High Code(s): R41.82 - ALTERED MENTAL STATUS, UNSPECIFIED SNOMED Code(s): 868292110 Plan: Diarrhea, nausea, weakness, decreased oral intake: Presented with generalized weakness, nausea, decreased oral intake and diarrhea. Denies blood in stool/melena. Denies fever and chills. She reports taking lomotil with minor improvement in symptoms -C. difficile negative. Stool culture negative -Scheduled and prn anti-diarrheals ordered. Diarrhea improving -Continue IV hydration and supportive medications - PT consulted. Referral placed to home health services due to progressing weakness and difficulties managing self care at home Chemo induced panctyopenia: - WBC now stable. WBC 14.7. G-CSF discontinued - Febrile neutropenia noted. Afebrile >72 hours. Continues on IV abx. Cultures negative thus far. ID following - Hgb stable, 9.1, plts 95,000 - Continue to closely monitor counts Altered mental status: Began to experience confusion and per staff was dropping items. -CT brain obtained and was negative for acute intracranial processes EEG shows background slowing suggestive of moderate encephalopathy, otherwise, no focal slowing or epileptiform discharge or seizure. -CT brain w/ contrast ordered to r/o mets, as she cannot have MRI due to AICD. Scan revealed no evidence of metastasis. Negative for acute bleed or mass effect -Pancultures ordered; Urine culture negative, blood culture negative thus far. Chest x-ray revealing cardiomegaly, and mild left basilar atelectasis versus i nfiltrate -Patient is showing significant improvement in mentation, A&O x 3, answering questions appropriately. -Patient continues on IV antibiotics. Infectious disease and neurology following Stage IIIA non-small cell lung cancer: -Diagnosed in late September 2023 with recommendation for chemoimmunotherapy -Initially had planned to receive treatment in [place], but difficulty establishing at [facility] -Completed cycle 2 of carboplatin/paclitaxel/pembrolizumab on 12/26/23 -Clinic follow-up scheduled on 01/[address] Dowell. Will need to discuss dose reduction due to treatment intolerance despite aggressive supportive care management. Will also need to consider addition of G-CSF to regimen and schedule clinic IV hydration s/p treatments and continue aggressive supportive care measures. Will further discuss treatment options and goals of care at scheduled f/u
[2024-01-06 17:37] LABS: Glucose,Whole Blood 107 mg/dL (70-110)
--- NOTE | 2024-01-06 19:21 | P.PN ---
Subjective Progress Note Date: 01/06/24 Principal diagnosis: Reason for follow-up is febrile neutropenia Patient is a 73-year female with a past medical history significant for diabetes mellitus hypertension [place] coronary artery disease hypothyroidism presenting to the hospital for evaluation of generalized weakness significant diarrhea patient subsequently spiked a fever prompting this consultation. On today's evaluation that is 01/06/2024, the patient continues to be afebrile, the patient is on room air and breathing comfortably, the Pt denies having any chest pain or cough, the patient denies having any abdominal pain no vomiting or any diarrhea has been complaining of generalized weakness to be her main symptom. Patient white count is up to 14.7, creatinine is 1.41 cultures are currently pending Objective - Vital Signs Vital signs: Vital Signs Temp 97.3 F L 01/06/24 07:41 Pulse 87 01/06/24 10:49 Resp 16 01/06/24 07:41 BP 99/61 01/06/24 10:49 Pulse Ox 99 01/06/24 10:49 FiO2 Intake & Output 01/05/24 01/06/24 01/06/24 18:59 06:59 18:59 Intake Total 240 1740 Output Total 300 200 Balance -60 1540 Intake: Intake, IV Titration 1500 Amount Cefepime 2 gm In Sodium 100 Chloride 0.9% 100 ml @ 25 mls/hr IVPB Q12HR [facility] Rx #:[id number] Sodium Chloride 0.9% 1, 800 000 ml @ 75 mls/hr IV . [id number] [facility] Rx#:[id number] Sodium Chloride 0.9% 500 500 ml 500 ml @ 999 mls/hr IV .Q31M [facility] Rx#:[id number] metroNIDAZOLE-NS PMX 500 100 mg In Saline 1 100ml.bag @ 100 mls/hr IVPB Q8HR [facility] Rx#:[id number] Oral 240 240 Output: Urine 300 200 Other: Voiding Method Indwelling Catheter Indwelling Catheter Indwelling Catheter # Bowel Movements 1 - Exam GENERAL DESCRIPTION: An elderly female lying in bed in no distress RESPIRATORY SYSTEM: Unlabored breathing , decreased breath sounds at bases HEART: S1 S2 regular rate and rhythm , ABDOMEN: Soft , no tenderness EXTREMITIES: No edema feet - Labs CBC & Chem 7: 01/06/24 07:46 01/06/24 07:46 Labs: Abnormal Lab Results - Last 24 Hours (Table) 01/05/24 01/06/24 01/06/24 Range/Units 20:08 07:46 07:46 WBC 14.7 H (3.8-10.6) k/uL RBC 2.96 L (3.80-5.40) m/uL Hgb 9.1 L (11.4-16.0) gm/dL Hct 30.6 L (34.0-46.0) % MCV 103.7 H (80.0-100.0) fL MCHC 29.6 L (31.0-37.0) g/dL RDW 18.3 H (11.5-15.5) % Plt Count 95 L (150-450) k/uL Neutrophils # (Manual) 11.00 H (1.3-7.7) k/uL Monocytes # (Manual) 1.62 H (0-1.0) k/uL Myelocytes # (Manual) 0.15 H (0) k/uL Nucleated RBCs 2 H (0-0) /100 WBC Chloride 116 H (98-107) mmol/L Carbon Dioxide 14 L (22-30) mmol/L BUN 47 H (7-17) mg/dL Creatinine 1.41 H (0.52-1.04) mg/dL POC Glucose (mg/dL) 134 H (70-110) mg/dL Calcium 7.7 L (8.4-10.2) mg/dL ALT 38 H (4-34) U/L Alkaline Phosphatase 143 H (38-126) U/L Total Protein 4.8 L (6.3-8.2) g/dL Albumin 2.3 L (3.5-5.0) g/dL Microbiology - Last 24 Hours (Table) 01/03/24 08:10 Blood Culture - Preliminary Blood 01/04/24 03:30 Stool Culture - Preliminary Stool 01/02/24 15:50 Blood Culture - Preliminary Blood Assessment and Plan (1) Febrile neutropenia Current Visit: Yes Status: Acute Priority: High Code(s): D70.9 - NEUTROPENIA, UNSPECIFIED; R50.81 - FEVER PRESENTING WITH CONDITIONS CLASSIFIED ELSEWHERE SNOMED Code(s): 126502591 (2) Diarrhea Current Visit: Yes Status: Acute Priority: High Code(s): R19.7 - DIARRHEA, UNSPECIFIED SNOMED Code(s): 56299570 Plan: 1patient with febrile neutropenia in this patient who did have a fever of 101 F patient did have a white count of 0.77 neutrophil count of only 0.01 patient initially presented to hospital with significant diarrhea stool for C. difficile has been negative chest x-ray left lower lobe infiltrate however do not have significant respiratory symptoms source underlying pneumonia versus abdominal 2-patient did have resolution of her fever and white count has improved, cultures currently pending 3-patient to continue with cefepime and Flagyl and wait for the culture finalized to determine discharge antibiotics Dictation was produced using [employer] dictation software. please excuse any grammatical, word or spelling errors. Time with Patient: Less than 30
[2024-01-06 20:03] LABS: Glucose,Whole Blood 100 mg/dL (70-110)
--- NOTE | 2024-01-07 06:15 | P.PN ---
Subjective Progress Note Date: 01/06/24 Perla Kim, is a 73-year-old female patient of Dr. Chin who presents with complaints of weakness and diarrhea secondary to recent chemotherapy. Patient is currently under second round of chemotherapy for lung cancer. Patient reports last treatment was 5 days ago patient reports that she feels very weak and has no appetite. Patient has past medical history of asthma, COPD, diabetes mellitus, hypertension, AICD placement, lung cancer. Chest x-ray completed showing no acute process COPD with elevated right hemidiaphragm which can be associated with phrenic nerve palsy. Lab work revealing WBC of 5.0, hemoglobin 11.5, platelets 180 potassium elevated at 5.4 creatinine 1.42 and bun 49. Liver enzymes slightly elevated ALT 88, AST 82 total bili 1.7. Patient was negative for influenza RSV COVID-19. Patient will be admitted patient started on IV fluid. Oncology service is consulted. Repeat labs ordered. Stool for C. diff ordered. Zofran when necessary ordered On 01/01/2024 patient was seen and examined on the medical floor she is alert and oriented 3 in no apparent distress she is complaining of generalized weakness otherwise she denies any complaints, vital examination reveals a temperature of 97.8 pulse 107 respiration 19 and blood pressure 108/70 pulse ox 96% on room air. On 01/02/2024 patient was seen and examined on the medical floor she is alert and oriented 3 in no apparent distress she is complaining of generalized weakness, temperature is slightly elevated at 99.5 heart rate 1:15 respiration 16 blood pressure 103/68 white blood count is 0.77 hemoglobin 10.0 platelet count 153 lactic acid is elevated at 2.8 On 01/03/2024 patient's alert and oriented 3. Family at bedside reports improvement with mentation. Patient reports improvement with diarrhea.patient had low-grade temp last night 99.5. Current vital signs temp 98.2, heart rate 109, respiratory rate 18, blood pressure 122/64 with a pulse ox 97% on room air. Infectious disease, pulmonary,an oncology service is following. Patient remains on IV Maxipime and IV Flagyl. 01/03. Patient seen and examined. Patient sitting upright in the chair. Complaining of poor appetite. Patient had a Velazquez placed yesterday. Denies abdominal pain. 01/04. Patient seen and examined. Neurology ordered CT cervical spine as patient was having neck pain. 01/06/2024 Patient is seen in follow-up today being followed by multiple medical consultations. Patient reports to feeling slightly improved and asking about having indwelling Velazquez catheter removed. Will remove and monitor for retention. Patient is afebrile and denies chest pain or shortness of breath. Patient's blood pressures were on the lower side recommend holding any blood pressure medications and will initiate midodrine. Encouraged increase activity as tolerated show to therapy evaluate the patient. REVIEW OF SYSTEMS: CONSTITUTIONAL: No fever, no malaise,. CARDIOVASCULAR: No chest pain, no palpitations, no syncope. PULMONARY: No shortness of breath, no cough, GASTROINTESTINAL: No diarrhea, no abdominal pain. NEUROLOGICAL: No headaches, reports of generalized weakness PHYSICAL EXAMINATION: GENERAL: The patient is alert and oriented x3, not in any acute distress. Chronically ill looking HEENT: Pupils are round and equally reacting to light. EOMI. No scleral icterus. No conjunctival pallor. Normocephalic, atraumatic. No pharyngeal erythema. No thyromegaly. CARDIOVASCULAR: S1 and S2 present. No murmurs, rubs, or gallops. PULMONARY: Chest is clear to auscultation, no wheezing or crackles. ABDOMEN: Soft, nontender, nondistended, normoactive bowel sounds. No palpable organomegaly. MUSCULOSKELETAL: No joint swelling or deformity. EXTREMITIES: No cyanosis, clubbing, or pedal edema. NEUROLOGICAL: Gross neurological examination did not reveal any focal deficits. Diffusely weak SKIN: No rashes. Assessment: Weakness and diarrhea secondary to chemotherapy Pancytopenia Squamous cell carcinoma on receiving chemotherapy stage III non-small cell lung cancer History of COPD, not in exacerbation History of autologous stem cell transplant History of large B-cell lymphoma History of chronic kidney disease History of ischemic cardiomyopathy status post AICD History of coronary artery disease Diabetes mellitus Hypertension, currently hypotensive and will hold blood pressure medications, initiate midodrine Hyperlipidemia Hypothyroidism GI prophylaxis DVT prophylaxis Full code Plan: Patient is currently continued on antibiotics and Flagyl with infectious disease following. Cultures thus far negative. Patient is afebrile Pulmonary along with infectious disease and oncology are following Encouraged increase activity as tolerated and will have PT/OT therapy evaluate the patient Discontinue Velazquez catheter monitor for retention Encouraged oral intake Will follow-up with repeat labs Will discuss with other consultations regarding discharge planning Monitor blood pressure closely hold any blood pressure medications for now the patient has been started on midodrine as patient was mildly hypotensive today. The impression and plan of care has been dictated by Carlota Alejandra, nurse practitioner as directed. Dr. Иван MD I have performed a history and examination and MDM of this patient, discussed the same with the dictator, and agree with the dictator's assessment and plan as written ,documented as a scribe. Based on total visit time, I have performed more than 50% of the visit. Any additional findings or plans will be noted. Objective - Vital Signs Vital signs: Vital Signs Temp 97.3 F L 01/06/24 07:41 Pulse 87 01/06/24 10:49 Resp 16 01/06/24 07:41 BP 99/61 01/06/24 10:49 Pulse Ox 99 01/06/24 10:49 FiO2 Intake & Output 01/05/24 01/06/24 01/06/24 18:59 06:59 18:59 Intake Total 240 1740 Output Total 300 200 Balance -60 1540 Weight 60.781 kg Intake: Intake, IV Titration 1500 Amount Cefepime 2 gm In Sodium 100 Chloride 0.9% 100 ml @ 25 mls/hr IVPB Q12HR [facility] Rx #:[id number] Sodium Chloride 0.9% 1, 800 000 ml @ 75 mls/hr IV . [id number] [facility] Rx#:[id number] Sodium Chloride 0.9% 500 500 ml 500 ml @ 999 mls/hr IV .Q31M ONE Rx#:[id number] metroNIDAZOLE-NS PMX 500 100 mg In Saline 1 100ml.bag @ 100 mls/hr IVPB Q8HR [facility] Rx#:[id number] Oral 240 240 Output: Urine 300 200 Other: Voiding Method Indwelling Catheter Indwelling Catheter Indwelling Catheter # Bowel Movements 1 - Labs CBC & Chem 7: 01/06/24 07:46 01/06/24 07:46 Labs: Abnormal Lab Results - Last 24 Hours (Table) 01/05/24 01/06/24 01/06/24 Range/Units 20:08 07:46 07:46 WBC 14.7 H (3.8-10.6) k/uL RBC 2.96 L (3.80-5.40) m/uL Hgb 9.1 L (11.4-16.0) gm/dL Hct 30.6 L (34.0-46.0) % MCV 103.7 H (80.0-100.0) fL MCHC 29.6 L (31.0-37.0) g/dL RDW 18.3 H (11.5-15.5) % Plt Count 95 L (150-450) k/uL Neutrophils # (Manual) 11.00 H (1.3-7.7) k/uL Monocytes # (Manual) 1.62 H (0-1.0) k/uL Myelocytes # (Manual) 0.15 H (0) k/uL Nucleated RBCs 2 H (0-0) /100 WBC Chloride 116 H (98-107) mmol/L Carbon Dioxide 14 L (22-30) mmol/L BUN 47 H (7-17) mg/dL Creatinine 1.41 H (0.52-1.04) mg/dL POC Glucose (mg/dL) 134 H (70-110) mg/dL Calcium 7.7 L (8.4-10.2) mg/dL ALT 38 H (4-34) U/L Alkaline Phosphatase 143 H (38-126) U/L Total Protein 4.8 L (6.3-8.2) g/dL Albumin 2.3 L (3.5-5.0) g/dL Microbiology - Last 24 Hours (Table) 01/03/24 08:10 Blood Culture - Preliminary Blood 01/04/24 03:30 Stool Culture - Preliminary Stool 01/02/24 15:50 Blood Culture - Preliminary Blood
[2024-01-07 07:12] LABS: Glucose,Whole Blood 90 mg/dL (70-110)
[2024-01-07 11:04] LABS: HCT 29.4 % (37.2-46.3); HGB 8.8 g/dL (12.0-15.0); MCH 30.6 pg (27.0-32.0); MCHC 29.9 g/dL (32.0-37.0); MCV 102.1 FL (80.0-97.0); Mean Platelet Volume 12.5 FL (9.5-12.2); Platelet Count 109 X 10*3/uL (140-440); RBC 2.88 X 10*6/uL (4.10-5.20); RDW 19.1 % (11.5-14.5); WBC 21.59 X 10*3/uL (4.50-10.00)
[2024-01-07 11:17] LABS: ALT 37 U/L (8-44); AST 24 U/L (13-35); Albumin 2.9 g/dL (3.8-4.9); Albumin/Globulin Ratio 1.38 Ratio (1.60-3.17); Alkaline Phosphatase 166 U/L (41-126); BUN/Creat Ratio 31.23 Ratio (12.00-20.00); Blood Urea Nitrogen 40.6 mg/dL (9.0-27.0); Calcium 8.1 mg/dL (8.7-10.3); Carbon Dioxide 15.3 mmol/L (21.6-31.8); Chloride 113 mmol/L (96-109); Globulin 2.1 g/dL (1.6-3.3); Glucose 69 mg/dL (70-110); Magnesium 1.4 mg/dL (1.5-2.4); Potassium 3.9 mmol/L (3.5-5.5); Sodium 140 mmol/L (135-145); Total Bilirubin 0.3 mg/dL (0.3-1.2)
[2024-01-07 11:51] LABS: Glucose,Whole Blood 126 mg/dL (70-110)
[2024-01-07 11:54] LABS: Glucose,Whole Blood 122 mg/dL (70-110)
[2024-01-07 12:50] LABS: Acanthocytes 2+; Basophils # (M) 0 X 10*3/uL (0.00-0.10); Elliptocytes 2+; Eosinophils # (M) 0 X 10*3/uL (0.04-0.35); Lymphocytes # (M) 0 X 10*3/uL (0.90-5.00); Monocytes # (M) 1.08 X 10*3/uL (0.20-1.00); Neutrophils # (M) 20.51 X 10*3/uL (1.80-7.70); Neutrophils % (M) 95 %
--- NOTE | 2024-01-07 15:38 | P.PN ---
Subjective Progress Note Date: 01/07/24 Principal diagnosis: Reason for follow-up is febrile neutropenia Patient is a 73-year female with a past medical history significant for diabetes mellitus hypertension [place] coronary artery disease hypothyroidism presenting to the hospital for evaluation of generalized weakness significant diarrhea patient subsequently spiked a fever prompting this consultation. On today's evaluation that is 01/07/2024, Patient is afebrile patient is currently on room air and denies having any shortness of breath, the patient denies any chest pain or cough, the patient denies any nausea vomiting did not have any abdominal pain and no diarrhea. Patient white count is 21.59, creatinine is 1.3 culture has been negative Objective - Vital Signs Vital signs: Vital Signs Temp 97.9 F 01/07/24 11:35 Pulse 84 01/07/24 11:35 Resp 16 01/07/24 11:35 BP 92/56 01/07/24 11:35 Pulse Ox 98 01/07/24 11:35 FiO2 Intake & Output 01/06/24 01/07/24 01/07/24 18:59 06:59 18:59 Intake Total 300 Output Total 1000 Balance 300 -1000 Weight 60.781 kg Intake: Intake, IV Titration 300 Amount Cefepime 2 gm In Sodium 100 Chloride 0.9% 100 ml @ 25 mls/hr IVPB Q12HR [facility] Rx #:[id number] metroNIDAZOLE-NS PMX 500 200 mg In Saline 1 100ml.bag @ 100 mls/hr IVPB Q8HR [facility] Rx#:[id number] Output: Urine 1000 Straight 500 Other: Voiding Method Indwelling Catheter Indwelling Catheter # Voids 1 # Bowel Movements 1 1 - Exam GENERAL DESCRIPTION: An elderly female lying in bed in no distress RESPIRATORY SYSTEM: Unlabored breathing , decreased breath sounds at bases HEART: S1 S2 regular rate and rhythm , ABDOMEN: Soft , no tenderness EXTREMITIES: No edema feet - Labs CBC & Chem 7: 01/07/24 07:31 01/07/24 07:31 Labs: Abnormal Lab Results - Last 24 Hours (Table) 01/07/24 01/07/24 01/07/24 Range/Units 07:31 07:31 11:40 WBC 21.59 H (4.50-10.00) X 10*3/uL RBC 2.88 L (4.10-5.20) X 10*6/uL Hgb 8.8 L (12.0-15.0) g/dL Hct 29.4 L (37.2-46.3) % MCV 102.1 H (80.0-97.0) FL MCHC 29.9 L (32.0-37.0) g/dL RDW 19.1 H (11.5-14.5) % Plt Count 109 L (140-440) X 10*3/uL MPV 12.5 H (9.5-12.2) FL Lymphocytes # (Manual) 0 L (0.90-5.00) X 10*3/uL Monocytes # (Manual) 1.08 H (0.20-1.00) X 10*3/uL Eosinophils # (Manual) 0 L (0.04-0.35) X 10*3/uL NRBC/100 WBC Diff 0.10 H (0.00-0.01) X 10*3/uL Elliptocytes 2+ A Acanthocytes (Spur) 2+ A Chloride 113 H (96-109) mmol/L Carbon Dioxide 15.3 L (21.6-31.8) mmol/L BUN 40.6 H (9.0-27.0) mg/dL Est GFR (CKD-EPI) 43 L (>=60) BUN/Creatinine Ratio 31.23 H (12.00-20.00) Ratio Glucose 69 L (70-110) mg/dL POC Glucose (mg/dL) 122 H (70-110) mg/dL Calcium 8.1 L (8.7-10.3) mg/dL Magnesium 1.4 L (1.5-2.4) mg/dL Alkaline Phosphatase 166 H (41-126) U/L Total Protein 5.0 L (6.2-8.2) g/dL Albumin 2.9 L (3.8-4.9) g/dL Albumin/Globulin Ratio 1.38 L (1.60-3.17) Ratio 01/07/24 Range/Units 11:49 WBC (4.50-10.00) X 10*3/uL RBC (4.10-5.20) X 10*6/uL Hgb (12.0-15.0) g/dL Hct (37.2-46.3) % MCV (80.0-97.0) FL MCHC (32.0-37.0) g/dL RDW (11.5-14.5) % Plt Count (140-440) X 10*3/uL MPV (9.5-12.2) FL Lymphocytes # (Manual) (0.90-5.00) X 10*3/uL Monocytes # (Manual) (0.20-1.00) X 10*3/uL Eosinophils # (Manual) (0.04-0.35) X 10*3/uL NRBC/100 WBC Diff (0.00-0.01) X 10*3/uL Elliptocytes Acanthocytes (Spur) Chloride (96-109) mmol/L Carbon Dioxide (21.6-31.8) mmol/L BUN (9.0-27.0) mg/dL Est GFR (CKD-EPI) (>=60) BUN/Creatinine Ratio (12.00-20.00) Ratio Glucose (70-110) mg/dL POC Glucose (mg/dL) 126 H (70-110) mg/dL Calcium (8.7-10.3) mg/dL Magnesium (1.5-2.4) mg/dL Alkaline Phosphatase (41-126) U/L Total Protein (6.2-8.2) g/dL Albumin (3.8-4.9) g/dL Albumin/Globulin Ratio (1.60-3.17) Ratio Microbiology - Last 24 Hours (Table) 01/04/24 03:30 Stool Culture - Final Stool 01/03/24 08:10 Blood Culture - Preliminary Blood Assessment and Plan (1) Febrile neutropenia Current Visit: Yes Status: Acute Priority: High Code(s): D70.9 - NEUTROPENIA, UNSPECIFIED; R50.81 - FEVER PRESENTING WITH CONDITIONS CLASSIFIED ELSEWHERE SNOMED Code(s): 805460662 (2) Diarrhea Current Visit: Yes Status: Acute Priority: High Code(s): R19.7 - DIARRHEA, UNSPECIFIED SNOMED Code(s): 20361899 Plan: 1patient with febrile neutropenia in this patient who did have a fever of 101 F patient did have a white count of 0.77 neutrophil count of only 0.01 patient initially presented to hospital with significant diarrhea stool for C. difficile has been negative chest x-ray left lower lobe infiltrate however do not have significant respiratory symptoms source underlying pneumonia versus abdominal 2-patient did have resolution of her fever and white count is elevated more likely meds related culture has been negative so far 3-patient to continue with cefepime and Flagyl and transition to oral Ceftin on discharge Dictation was produced using [employer] dictation software. please excuse any grammatical, word or spelling errors. Time with Patient: Less than 30
--- NOTE | 2024-01-07 15:42 | P.PN ---
Subjective Progress Note Date: 01/07/24 Patient was initially seen by Dr. Christopher Mayen. Please refer to his note for details. Patient is a 73-year-old female with history of breast cancer and recent lung cancer who received chemoimmunotherapy, who developed acute mental status change and right upper extremity weakness, that now has resolved. EEG was negative for seizure. 2 CT scan of head was have been negative. Cannot obtain MRI because patient has AICD. Dr. Mayen had ordered CT of the cervical spine for left upper extremity weakness and neck pain. Patient was seen for a follow-up. Patient states that she is concerned why her blood pressure has been running low. Also concerned about not getting stronger. She feels wobbly in the upper extremities particularly the left upper limb. Patient has lymphedema in the left upper extremity. Patient denies any pain. She denies any confusion at this time. Some of the workup during his hospital visit consisted of: ALT is 88 most recent has stabilized. AST is 82 and has normalized. Magnesium is 1.3 and has normalize TSH: 1.07 CT head is reported as no acute intracranial process. routine EEG is abnormal. The background slowing suggestive of moderate en cephalopathy. Otherwise there is no focal slowing, epileptiform discharges or seizure on the EEG. 2-D echo was reported as left ventricular ejection fraction of 20-25%. Apical hypokinesis. Calcified aortic valve with moderate aortic stenosis and severe aortic regurgitation. Severe mitral regurgitation. Moderate left atrial dilation. Repeat CT head w/ and w/o: Is age appropriate senescent changes. No evidence of metastatic disease. No acute bleed or mass effect. I felt there is ?calcificat ion small foci over left cerebellar and temporal. Objective - Vital Signs Vital signs: Vital Signs Temp 97.4 F L 01/07/24 07:09 Pulse 94 01/07/24 07:09 Resp 16 01/07/24 07:09 BP 119/68 01/07/24 07:09 Pulse Ox 97 01/07/24 07:09 FiO2 Intake & Output 01/06/24 01/07/24 01/07/24 18:59 06:59 18:59 Intake Total 300 Output Total 1000 Balance 300 -1000 Weight 60.781 kg Intake: Intake, IV Titration 300 Amount Cefepime 2 gm In Sodium 100 Chloride 0.9% 100 ml @ 25 mls/hr IVPB Q12HR [facility] Rx #:[id number] metroNIDAZOLE-NS PMX 500 200 mg In Saline 1 100ml.bag @ 100 mls/hr IVPB Q8HR [facility] Rx#:[id number] Output: Urine 1000 Straight 500 Other: Voiding Method Indwelling Catheter Indwelling Catheter # Voids 1 # Bowel Movements 1 1 - Exam Patient's mental status, speech and language functions are normal. No aphasia or dysarthria. Patient knows it is 01/07/2024 and that she is in [facility] imported on [place] and name of the current president. Patient is making normal humerus comments. Cranial nerves are normal. Visual rivera are full, face is symmetric and tongue protrudes midline. No nystagmus. Muscle strength appears normal in the arms and legs. Sensory to touch is equal. Patient has significant ataxia for [id number] as well as [id number] testing bilaterally. Gait deferred. - Labs CBC & Chem 7: 01/07/24 07:31 01/07/24 07:31 Labs: Abnormal Lab Results - Last 24 Hours (Table) 01/07/24 01/07/24 01/07/24 Range/Units 07:31 07:31 11:40 WBC 21.59 H (4.50-10.00) X 10*3/uL RBC 2.88 L (4.10-5.20) X 10*6/uL Hgb 8.8 L (12.0-15.0) g/dL Hct 29.4 L (37.2-46.3) % MCV 102.1 H (80.0-97.0) FL MCHC 29.9 L (32.0-37.0) g/dL RDW 19.1 H (11.5-14.5) % Plt Count 109 L (140-440) X 10*3/uL MPV 12.5 H (9.5-12.2) FL NRBC/100 WBC Diff 0.10 H (0.00-0.01) X 10*3/uL Chloride 113 H (96-109) mmol/L Carbon Dioxide 15.3 L (21.6-31.8) mmol/L BUN 40.6 H (9.0-27.0) mg/dL Est GFR (CKD-EPI) 43 L (>=60) BUN/Creatinine Ratio 31.23 H (12.00-20.00) Ratio Glucose 69 L (70-110) mg/dL POC Glucose (mg/dL) 122 H (70-110) mg/dL Calcium 8.1 L (8.7-10.3) mg/dL Magnesium 1.4 L (1.5-2.4) mg/dL Alkaline Phosphatase 166 H (41-126) U/L Total Protein 5.0 L (6.2-8.2) g/dL Albumin 2.9 L (3.8-4.9) g/dL Albumin/Globulin Ratio 1.38 L (1.60-3.17) Ratio 01/07/24 Range/Units 11:49 WBC (4.50-10.00) X 10*3/uL RBC (4.10-5.20) X 10*6/uL Hgb (12.0-15.0) g/dL Hct (37.2-46.3) % MCV (80.0-97.0) FL MCHC (32.0-37.0) g/dL RDW (11.5-14.5) % Plt Count (140-440) X 10*3/uL MPV (9.5-12.2) FL NRBC/100 WBC Diff (0.00-0.01) X 10*3/uL Chloride (96-109) mmol/L Carbon Dioxide (21.6-31.8) mmol/L BUN (9.0-27.0) mg/dL Est GFR (CKD-EPI) (>=60) BUN/Creatinine Ratio (12.00-20.00) Ratio Glucose (70-110) mg/dL POC Glucose (mg/dL) 126 H (70-110) mg/dL Calcium (8.7-10.3) mg/dL Magnesium (1.5-2.4) mg/dL Alkaline Phosphatase (41-126) U/L Total Protein (6.2-8.2) g/dL Albumin (3.8-4.9) g/dL Albumin/Globulin Ratio (1.60-3.17) Ratio Microbiology - Last 24 Hours (Table) 01/04/24 03:30 Stool Culture - Final Stool 01/03/24 08:10 Blood Culture - Preliminary Blood Assessment and Plan Assessment: This is a 73-year-old woman with remote history of breast cancer status post bilateral mastectomy, who has a recent diagnosis of non-small cell lung cancer and had chemoimmunotherapy about 7 days ago who presents because of generalized weakness. Metabolic encephalopathy, improved. Patient is fully oriented at this time. Acute to subacute weakness, with evidence of ataxia of upper and lower limbs, probably related to side effect of chemotherapeutic agent. Rule out paraneoplastic syndrome. Left upper extremity lymphedema History of recent cell lung cancer post chemoimmunotherapy History of left breast cancer status post bilateral mastectomy the patient had radiation chemotherapy and genetic test and patient was positive BRCA2 Apical Hypokinesis with low EF of 20-25% on 2D echo. Severe aortic and mitral regurgitation. History of coronary artery disease Severe ischemic cardiomyopathy status post AICD Diabetes mellitus Plan: Cannot obtain MRI Brain since has AICD. Consider MRI Brain as outpatient that is AICD compatible. Repeat CT head w/ and w/o: Is age appropriate senescent changes. No evidence of metastatic disease. No acute bleed or mass effect. I felt there is ?calcification small foci over left cerebellar and tempora. CT cervical revealed couple small central protrusions of the disc type density at C3-4 and C4-5. No suspicious acute osseous abnormality. Currently the patient is on aspirin 81mg, Plavix 75mg daily. Patient has ataxia in the upper and lower limbs. We will check B12, folate because of macrocytosis. Every 4 hours neuro checks Cardiac monitoring PT OT are consulted. Oncology team is on board. I.D. is on board. Patient has leukopenia and fever and unsure if chemoimmunotherapy induced. Consider cardiology consultation because of abnormal 2D echo We'll defer the rest of the medical measure the primary and other specialists
[2024-01-07 16:56] LABS: Glucose,Whole Blood 129 mg/dL (70-110)
[2024-01-07] MEDS ORDERED: Magnesium Replacement Protocol 1 EACH MISC MISCELLANE PRN (17:05)
[2024-01-07] MEDS ORDERED: MELATONIN 5 MG TABLET PO PRN (17:08)
[2024-01-07] MEDS: MAGNESIUM SULFATE-D5W PMX 1 GM in DEXTROSE/WATER 1 100ML.BAG IVPB SCH (17:30)
[2024-01-07] MEDS: TAMSULOSIN 0.4 MG CAP.ER.24H PO STA (18:28)
[2024-01-07] MEDS: HYDROCORTISONE SUPPOSITORY 25 MG SUPP RECTAL SCH (22:07)
--- NOTE | 2024-01-08 05:53 | P.PN ---
Subjective Progress Note Date: 01/07/24 Perla Kim, is a 73-year-old female patient of Dr. Chin who presents with complaints of weakness and diarrhea secondary to recent chemotherapy. Patient is currently under second round of chemotherapy for lung cancer. Patient reports last treatment was 5 days ago patient reports that she feels very weak and has no appetite. Patient has past medical history of asthma, COPD, diabetes mellitus, hypertension, AICD placement, lung cancer. Chest x-ray completed showing no acute process COPD with elevated right hemidiaphragm which can be associated with phrenic nerve palsy. Lab work revealing WBC of 5.0, hemoglobin 11.5, platelets 180 potassium elevated at 5.4 creatinine 1.42 and bun 49. Liver enzymes slightly elevated ALT 88, AST 82 total bili 1.7. Patient was negative for influenza RSV COVID-19. Patient will be admitted patient started on IV fluid. Oncology service is consulted. Repeat labs ordered. Stool for C. diff ordered. Zofran when necessary ordered On 01/01/2024 patient was seen and examined on the medical floor she is alert and oriented 3 in no apparent distress she is complaining of generalized weakness otherwise she denies any complaints, vital examination reveals a temperature of 97.8 pulse 107 respiration 19 and blood pressure 108/70 pulse ox 96% on room air. On 01/02/2024 patient was seen and examined on the medical floor she is alert and oriented 3 in no apparent distress she is complaining of generalized weakness, temperature is slightly elevated at 99.5 heart rate 1:15 respiration 16 blood pressure 103/68 white blood count is 0.77 hemoglobin 10.0 platelet count 153 lactic acid is elevated at 2.8 On 01/03/2024 patient's alert and oriented 3. Family at bedside reports improvement with mentation. Patient reports improvement with diarrhea.patient had low-grade temp last night 99.5. Current vital signs temp 98.2, heart rate 109, respiratory rate 18, blood pressure 122/64 with a pulse ox 97% on room air. Infectious disease, pulmonary,an oncology service is following. Patient remains on IV Maxipime and IV Flagyl. 01/03. Patient seen and examined. Patient sitting upright in the chair. Complaining of poor appetite. Patient had a Velazquez placed yesterday. Denies abdominal pain. 01/04. Patient seen and examined. Neurology ordered CT cervical spine as patient was having neck pain. 01/06/2024 Patient is seen in follow-up today being followed by multiple medical consultations. Patient reports to feeling slightly improved and asking about having indwelling Velazquez catheter removed. Will remove and monitor for retention. Patient is afebrile and denies chest pain or shortness of breath. Patient's blood pressures were on the lower side recommend holding any blood pressure medications and will initiate midodrine. Encouraged increase activity as tolerated show to therapy evaluate the patient. 01/07/2024 Patient is seen and evaluated in follow-up today currently sitting up in the chair appears weak and lethargic although easily arousable. Patient reports improved although continues with loose stool. Patient also with blood noted in the stool and patient has history of hemorrhoids will add Anusol cream. Hemoglobin is stable at 8.8. Patient continues on antibiotics and white count remains elevated and cultures thus far negative. Recommend PT/OT therapy daily. Patient does take digoxin and will order a dig level and monitor closely on continued telemetry monitoring. Patient is afebrile with no reported chest pain or shortness of breath. Encouraged oral intake. REVIEW OF SYSTEMS: CONSTITUTIONAL: No fever, no malaise,. CARDIOVASCULAR: No chest pain, no palpitations, no syncope. PULMONARY: No shortness of breath, no cough, GASTROINTESTINAL: No diarrhea, no abdominal pain. Reports loose stools with b lood noted NEUROLOGICAL: No headaches, reports of generalized weakness PHYSICAL EXAMINATION: GENERAL: The patient is alert and oriented x3, not in any acute distress. Chronically ill looking, elderly appearing HEENT: Pupils are round and equally reacting to light. EOMI. No scleral icterus. No conjunctival pallor. Normocephalic, atraumatic. No pharyngeal erythema. No thyromegaly. CARDIOVASCULAR: S1 and S2 muffled PULMONARY: Diminished breath sounds bilaterally otherwise chest is clear to aus cultation, no wheezing or crackles. ABDOMEN: Soft, nontender, nondistended, normoactive bowel sounds. No palpable organomegaly. MUSCULOSKELETAL: No joint swelling or deformity. EXTREMITIES: No cyanosis, clubbing, or pedal edema. NEUROLOGICAL: Gross neurological examination did not reveal any focal deficits. Diffusely weak SKIN: No rashes. Assessment: Weakness and diarrhea secondary to chemotherapy Pancytopenia Squamous cell carcinoma on receiving chemotherapy stage III non-small cell lung cancer Urinary retention requiring indwelling Velazquez catheter Blood noted in stool, likely secondary to hemorrhoids Diarrhea, C. difficile ruled out History of COPD, not in exacerbation History of autologous stem cell transplant History of large B-cell lymphoma History of chronic kidney disease History of ischemic cardiomyopathy status post AICD History of coronary artery disease Diabetes mellitus Hypertension, currently hypotensive and will hold blood pressure medications, initiate midodrine Hyperlipidemia Hypothyroidism GI prophylaxis DVT prophylaxis Full code Plan: Patient is currently continued on antibiotics and Flagyl with infectious disease following. Cultures thus far negative. Patient is afebrile although white count remains elevated. Will follow-up on repeat labs Pulmonary along with infectious disease and oncology are following Encouraged increase activity as tolerated and will have PT/OT therapy evaluate the patient. Patient reports she plans on returning home Attempted to discontinue the indwelling Velazquez catheter although required straight catheterization and continues to retain, will add Flomax and reinitiate indwelling Velazquez catheter. There is some mild noted hematuria in the Velazquez and hemoglobin is stable at 8.8 we will follow-up with repeat labs and recommend to irrigate Velazquez and monitor for any worsening. Likely related to trauma from removal and reinsertion of a Velazquez Encouraged oral intake Will follow-up with repeat labs Will hold digoxin given side effects and will order a digoxin level. Patient may not be a good candidate for this medication Continue to monitor blood pressure closely hold any blood pressure medications for now, continue midodrine Overall prognosis is guarded The impression and plan of care has been dictated by Carlota Alejandra, nurse practitioner as directed. Dr. Quentin MD I have performed a history and examination and MDM of this patient, discussed the same with the dictator, and agree with the dictator's assessment and plan as written ,documented as a scribe. Based on total visit time, I have performed more than 50% of the visit. Any additional findings or plans will be noted. Objective - Vital Signs Vital signs: Vital Signs Temp 97.4 F L 01/07/24 07:09 Pulse 94 01/07/24 07:09 Resp 16 01/07/24 07:09 BP 119/68 01/07/24 07:09 Pulse Ox 97 01/07/24 07:09 FiO2 Intake & Output 01/06/24 01/07/24 01/07/24 18:59 06:59 18:59 Intake Total 300 Output Total 1000 Balance 300 -1000 Weight 60.781 kg Intake: Intake, IV Titration 300 Amount Cefepime 2 gm In Sodium 100 Chloride 0.9% 100 ml @ 25 mls/hr IVPB Q12HR [facility] Rx #:[id number] metroNIDAZOLE-NS PMX 500 200 mg In Saline 1 100ml.bag @ 100 mls/hr IVPB Q8HR [facility] Rx#:[id number] Output: Urine 1000 Straight 500 Other: Voiding Method Indwelling Catheter Indwelling Catheter # Voids 1 # Bowel Movements 1 1 - Labs CBC & Chem 7: 01/07/24 07:31 01/07/24 07:31 Labs: Abnormal Lab Results - Last 24 Hours (Table) 01/06/24 Range/Units 07:46 WBC 14.7 H (3.8-10.6) k/uL RBC 2.96 L (3.80-5.40) m/uL Hgb 9.1 L (11.4-16.0) gm/dL Hct 30.6 L (34.0-46.0) % MCV 103.7 H (80.0-100.0) fL MCHC 29.6 L (31.0-37.0) g/dL RDW 18.3 H (11.5-15.5) % Plt Count 95 L (150-450) k/uL Neutrophils # (Manual) 11.00 H (1.3-7.7) k/uL Monocytes # (Manual) 1.62 H (0-1.0) k/uL Myelocytes # (Manual) 0.15 H (0) k/uL Nucleated RBCs 2 H (0-0) /100 WBC Microbiology - Last 24 Hours (Table) 01/04/24 03:30 Stool Culture - Final Stool 01/03/24 08:10 Blood Culture - Preliminary Blood
[2024-01-08 07:12] LABS: Glucose,Whole Blood 137 mg/dL (70-110)
[2024-01-08] MEDS: TAMSULOSIN 0.4 MG CAP.ER.24H PO SCH (09:05)
[2024-01-08] MEDS: FOLIC ACID 1 MG TAB PO SCH (11:30)
[2024-01-08 12:39] LABS: Glucose,Whole Blood 156 mg/dL (70-110)
[2024-01-08 17:02] LABS: Glucose,Whole Blood 146 mg/dL (70-110)
--- NOTE | 2024-01-08 17:22 | P.PN ---
Subjective Progress Note Date: 01/08/24 Principal diagnosis: Reason for follow-up is febrile neutropenia Patient is a 73-year female with a past medical history significant for diabetes mellitus hypertension NH coronary artery disease hypothyroidism presenting to the hospital for evaluation of generalized weakness significant diarrhea patient subsequently spiked a fever prompting this consultation. On today's evaluation that is 01/08/2024, patient has been afebrile, patient is breathing comfortably and is currently on room air, patient denies having any significant cough no chest pain shortness of breath, patient denies nausea vomiting or diarrhea and no abdominal pain. No new labs has been obtained today cultures has been negative Objective - Vital Signs Vital signs: Vital Signs Temp 97.8 F 01/08/24 07:06 Pulse 87 01/08/24 08:45 Resp 19 01/08/24 08:45 BP 103/64 01/08/24 07:06 Pulse Ox 99 01/08/24 07:06 FiO2 Intake & Output 01/07/24 01/08/24 01/08/24 18:59 06:59 18:59 Intake Total 1300 Output Total 700 550 Balance 600 -550 Intake: Intake, IV Titration 1300 Amount Cefepime 2 gm In Sodium 100 Chloride 0.9% 100 ml @ 25 mls/hr IVPB Q12HR [facility] Rx #:[id number] Magnesium Sulfate-D5w Pmx 100 1 gm In Dextrose/Water 1 100ml.bag @ 100 mls/hr IVPB Q1H [facility] Rx#: [id number] Sodium Chloride 0.9% 1, 900 000 ml @ 75 mls/hr IV . [id number] [facility] Rx#:[id number] metroNIDAZOLE-NS PMX 500 200 mg In Saline 1 100ml.bag @ 100 mls/hr IVPB Q8HR [facility] Rx#:[id number] Output: Urine 700 550 Other: Voiding Method Indwelling Catheter Indwelling Catheter Indwelling Catheter # Bowel Movements 1 0 - Exam GENERAL DESCRIPTION: An elderly female lying in bed in no distress RESPIRATORY SYSTEM: Unlabored breathing , decreased breath sounds at bases HEART: S1 S2 regular rate and rhythm , ABDOMEN: Soft , no tenderness EXTREMITIES: No edema feet - Labs CBC & Chem 7: 01/07/24 07:31 01/07/24 07:31 Labs: Abnormal Lab Results - Last 24 Hours (Table) 01/07/24 01/07/24 01/08/24 Range/Units 07:31 16:54 07:10 Neutrophils # (Manual) 20.51 H (1.80-7.70) X 10*3/uL POC Glucose (mg/dL) 129 H 137 H (70-110) mg/dL 01/08/24 Range/Units 12:38 Neutrophils # (Manual) (1.80-7.70) X 10*3/uL POC Glucose (mg/dL) 156 H (70-110) mg/dL Microbiology - Last 24 Hours (Table) 01/03/24 08:10 Blood Culture - Final Blood 01/02/24 15:50 Blood Culture - Final Blood 01/04/24 03:30 Stool Culture - Final Stool Assessment and Plan (1) Febrile neutropenia Current Visit: Yes Status: Acute Priority: High Code(s): D70.9 - NEUTROPENIA, UNSPECIFIED; R50.81 - FEVER PRESENTING WITH CONDITIONS CLASSIFIED ELSEWHERE SNOMED Code(s): 370652990 (2) Diarrhea Current Visit: Yes Status: Acute Priority: High Code(s): R19.7 - DIARRHEA, UNSPECIFIED SNOMED Code(s): 56902852 Plan: 1patient with febrile neutropenia in this patient who did have a fever of 101 F patient did have a white count of 0.77 neutrophil count of only 0.01 patient initially presented to hospital with significant diarrhea stool for C. difficile has been negative chest x-ray left lower lobe infiltrate however do not have significant respiratory symptoms source underlying pneumonia versus abdominal 2-patient did have resolution of her fever and white count has normal ized/elevated more likely meds related culture has been negative so far 3-patient to continue with cefepime and will transition to oral Ceftin on discharge at the bedside question concern answered Dictation was produced using [employer] dictation software. please excuse any grammatical, word or spelling errors. Time with Patient: Less than 30
[2024-01-08 18:54] LABS: HCT 29.7 % (37.2-46.3); MCH 30.9 pg (27.0-32.0); MCHC 30.3 g/dL (32.0-37.0); MCV 102.1 FL (80.0-97.0); Mean Platelet Volume 12.3 FL (9.5-12.2); NRBC Per 100 WBC 0.05 X 10*3/uL (0.00-0.01); Platelet Count 115 X 10*3/uL (140-440); RBC 2.91 X 10*6/uL (4.10-5.20); RDW 19.7 % (11.5-14.5)
[2024-01-08 19:57] LABS: Basophils # (A) 0.14 X 10*3/uL (0.00-0.10); Basophils % (A) 0.9 %; Elliptocytes 2+; Eosinophils # (A) 0 X 10*3/uL (0.04-0.35); Eosinophils % (A) 0 %; Lymphocytes # (A) 2.11 X 10*3/uL (0.90-5.00); Lymphocytes % (A) 13.2 %; Monocytes # (A) 1.17 X 10*3/uL (0.20-1.00); Monocytes % (A) 7.3 %; Neutrophils # (A) 11.96 X 10*3/uL (1.80-7.70); Neutrophils % (A) 74.7 %
[2024-01-08 20:51] LABS: Glucose,Whole Blood 135 mg/dL (70-110)
[2024-01-08 21:28] LABS: Magnesium 1.6 mg/dL (1.5-2.4)
[2024-01-08 21:33] LABS: BUN/Creat Ratio 26.82 Ratio (12.00-20.00); Blood Urea Nitrogen 29.5 mg/dL (9.0-27.0); Carbon Dioxide 14.3 mmol/L (21.6-31.8); Chloride 111 mmol/L (96-109); Glucose 152 mg/dL (70-110); Potassium 4.2 mmol/L (3.5-5.5); Sodium 137 mmol/L (135-145)
[2024-01-08 21:34] LABS: ALT 32 U/L (8-44); AST 23 U/L (13-35); Alkaline Phosphatase 171 U/L (41-126); Calcium 8.3 mg/dL (8.7-10.3); Globulin 2.3 g/dL (1.6-3.3); Total Bilirubin 0.3 mg/dL (0.3-1.2); Total Protein 5.3 g/dL (6.2-8.2)
--- NOTE | 2024-01-09 04:53 | P.PN ---
Subjective Progress Note Date: 01/08/24 Perla Kim, is a 73-year-old female patient of Dr. Chin who presents with complaints of weakness and diarrhea secondary to recent chemotherapy. Patient is currently under second round of chemotherapy for lung cancer. Patient reports last treatment was 5 days ago patient reports that she feels very weak and has no appetite. Patient has past medical history of asthma, COPD, diabetes mellitus, hypertension, AICD placement, lung cancer. Chest x-ray completed showing no acute process COPD with elevated right hemidiaphragm which can be associated with phrenic nerve palsy. Lab work revealing WBC of 5.0, hemoglobin 11.5, platelets 180 potassium elevated at 5.4 creatinine 1.42 and bun 49. Liver enzymes slightly elevated ALT 88, AST 82 total bili 1.7. Patient was negative for influenza RSV COVID-19. Patient will be admitted patient started on IV fluid. Oncology service is consulted. Repeat labs ordered. Stool for C. diff ordered. Zofran when necessary ordered On 01/01/2024 patient was seen and examined on the medical floor she is alert and oriented 3 in no apparent distress she is complaining of generalized weakness otherwise she denies any complaints, vital examination reveals a temperature of 97.8 pulse 107 respiration 19 and blood pressure 108/70 pulse ox 96% on room air. On 01/02/2024 patient was seen and examined on the medical floor she is alert and oriented 3 in no apparent distress she is complaining of generalized weakness, temperature is slightly elevated at 99.5 heart rate 1:15 respiration 16 blood pressure 103/68 white blood count is 0.77 hemoglobin 10.0 platelet count 153 lactic acid is elevated at 2.8 On 01/03/2024 patient's alert and oriented 3. Family at bedside reports improvement with mentation. Patient reports improvement with diarrhea.patient had low-grade temp last night 99.5. Current vital signs temp 98.2, heart rate 109, respiratory rate 18, blood pressure 122/64 with a pulse ox 97% on room air. Infectious disease, pulmonary,an oncology service is following. Patient remains on IV Maxipime and IV Flagyl. 01/03. Patient seen and examined. Patient sitting upright in the chair. Complaining of poor appetite. Patient had a Velazquez placed yesterday. Denies abdominal pain. 01/04. Patient seen and examined. Neurology ordered CT cervical spine as patient was having neck pain. 01/06/2024 Patient is seen in follow-up today being followed by multiple medical consultations. Patient reports to feeling slightly improved and asking about having indwelling Velazquez catheter removed. Will remove and monitor for retention. Patient is afebrile and denies chest pain or shortness of breath. Patient's blood pressures were on the lower side recommend holding any blood pressure medications and will initiate midodrine. Encouraged increase activity as tolerated show to therapy evaluate the patient. 01/07/2024 Patient is seen and evaluated in follow-up today currently sitting up in the chair appears weak and lethargic although easily arousable. Patient reports improved although continues with loose stool. Patient also with blood noted in the stool and patient has history of hemorrhoids will add Anusol cream. Hemoglobin is stable at 8.8. Patient continues on antibiotics and white count remains elevated and cultures thus far negative. Recommend PT/OT therapy daily. Patient does take digoxin and will order a dig level and monitor closely on continued telemetry monitoring. Patient is afebrile with no reported chest pain or shortness of breath. Encouraged oral intake. 01/08/2024 Patient is seen today appears lethargic although arousable. Patient reports has been working with physical therapy and significantly weak. Discussing further with family on discharge planning with possible rehab for continued strength and mobility prior to going home. White count remains elevated although slightly trending down with infectious disease following maintained on antibiotics. Kidney function slightly improved and patient reports her diarrhea is somewhat improved. Patient was having hematuria noted in the Velazquez although has cleared up today. Hemoglobin remained stable and platelets of 100. Patient is afebrile denies chest pain or shortness of breath. Patient tolerating oral intake although not much of an appetite. REVIEW OF SYSTEMS: CONSTITUTIONAL: No fever, no malaise,. Reports of fatigue and generalized weakness CARDIOVASCULAR: No chest pain, no palpitations, no syncope. PULMONARY: No shortness of breath, no cough, GASTROINTESTINAL: No diarrhea, no abdominal pain. Reports loose stools but is less frequent NEUROLOGICAL: No headaches, reports of generalized weakness PHYSICAL EXAMINATION: GENERAL: The patient is alert and oriented x3, lethargic although arousable. Chronically ill looking, elderly appearing HEENT: Pupils are round and equally reacting to light. EOMI. No scleral icterus. No conjunctival pallor. Normocephalic, atraumatic. No pharyngeal erythema. No thyromegaly. CARDIOVASCULAR: S1 and S2 muffled PULMONARY: Diminished breath sounds bilaterally otherwise chest is clear to auscultation, no wheezing or crackles. ABDOMEN: Soft, nontender, nondistended, normoactive bowel sounds. No palpable organomegaly. MUSCULOSKELETAL: No joint swelling or deformity. EXTREMITIES: No cyanosis, clubbing, or pedal edema. NEUROLOGICAL: Gross neurological examination did not reveal any focal deficits. Diffusely weak SKIN: No rashes. Assessment: Weakness and diarrhea secondary to chemotherapy Pancytopenia Squamous cell carcinoma, currently receiving chemotherapy stage III non-small cell lung cancer Urinary retention requiring indwelling Velazquez catheter Blood noted in stool, likely secondary to hemorrhoids Diarrhea, C. difficile ruled out History of COPD, not in exacerbation History of autologous stem cell transplant History of large B-cell lymphoma History of chronic kidney disease History of ischemic cardiomyopathy status post AICD History of coronary artery disease Diabetes mellitus Hypertension, currently hypotensive and will hold blood pressure medications, continue midodrine as needed Hyperlipidemia Generalized weakness with gait dysfunction Hypothyroidism GI prophylaxis DVT prophylaxis Full code Plan: Patient is currently continued on antibiotics with infectious disease following. Cultures thus far negative. Patient is afebrile although white count remains elevated. White count is trending down and will follow-up with labs in the a.m. Pulmonary along with infectious disease and oncology are following Encouraged increase activity as tolerated and will have PT/OT therapy evaluate the patient. Patient reports she plans on returning home. Patient may benefit from ECF for continued strength and mobility as patient is significantly weak. Patient to discuss further with family as well as case management regarding discharge planning Attempted to discontinue the indwelling Velazquez catheter although required straight catheterization and continued to retain, continue Flomax and indwelling Velazquez catheter. There was some mild noted hematuria in the Velazquez noted yesterday although it is clear today and hemoglobin remained stable. Most likely secondary to trauma with initiating and discontinuing Velazquez x 2 Encouraged oral intake, continue with supplements Will hold digoxin given side effects and digoxin level was within normal limits. Patient may not be a good candidate for this medication Continue to monitor blood pressure closely hold any blood pressure medications for now, continue midodrine as needed Overall prognosis is guarded Will discuss with other consultations along with case management regarding discharge planning The impression and plan of care has been dictated by Carlota Alejandra, nurse practitioner as directed. Dr. Quentin MD I have performed a history and examination and MDM of this patient, discussed the same with the dictator, and agree with the dictator's assessment and plan as written ,documented as a scribe. Based on total visit time, I have performed more than 50% of the visit. Any additional findings or plans will be noted. Objective - Vital Signs Vital signs: Vital Signs Temp 97.8 F 01/08/24 07:06 Pulse 87 01/08/24 07:06 Resp 19 01/08/24 07:06 BP 103/64 01/08/24 07:06 Pulse Ox 99 01/08/24 07:06 FiO2 Intake & Output 01/07/24 01/08/24 01/08/24 18:59 06:59 18:59 Intake Total 1300 Output Total 700 550 Balance 600 -550 Intake: Intake, IV Titration 1300 Amount Cefepime 2 gm In Sodium 100 Chloride 0.9% 100 ml @ 25 mls/hr IVPB Q12HR [facility] Rx #:[id number] Magnesium Sulfate-D5w Pmx 100 1 gm In Dextrose/Water 1 100ml.bag @ 100 mls/hr IVPB Q1H [facility] Rx#: [id number] Sodium Chloride 0.9% 1, 900 000 ml @ 75 mls/hr IV . [id number] [facility] Rx#:[id number] metroNIDAZOLE-NS PMX 500 200 mg In Saline 1 100ml.bag @ 100 mls/hr IVPB Q8HR [facility] Rx#:[id number] Output: Urine 700 550 Other: Voiding Method Indwelling Catheter Indwelling Catheter # Bowel Movements 1 0 - Labs CBC & Chem 7: 01/08/24 14:22 01/08/24 14:22 Labs: Abnormal Lab Results - Last 24 Hours (Table) 01/07/24 01/07/24 01/07/24 Range/Units 07:31 07:31 11:40 WBC 21.59 H (4.50-10.00) X 10*3/uL RBC 2.88 L (4.10-5.20) X 10*6/uL Hgb 8.8 L (12.0-15.0) g/dL Hct 29.4 L (37.2-46.3) % MCV 102.1 H (80.0-97.0) FL MCHC 29.9 L (32.0-37.0) g/dL RDW 19.1 H (11.5-14.5) % Plt Count 109 L (140-440) X 10*3/uL MPV 12.5 H (9.5-12.2) FL Neutrophils # (Manual) 20.51 H (1.80-7.70) X 10*3/uL Lymphocytes # (Manual) 0 L (0.90-5.00) X 10*3/uL Monocytes # (Manual) 1.08 H (0.20-1.00) X 10*3/uL Eosinophils # (Manual) 0 L (0.04-0.35) X 10*3/uL NRBC/100 WBC Diff 0.10 H (0.00-0.01) X 10*3/uL Elliptocytes 2+ A Acanthocytes (Spur) 2+ A Chloride 113 H (96-109) mmol/L Carbon Dioxide 15.3 L (21.6-31.8) mmol/L BUN 40.6 H (9.0-27.0) mg/dL Est GFR (CKD-EPI) 43 L (>=60) BUN/Creatinine Ratio 31.23 H (12.00-20.00) Ratio Glucose 69 L (70-110) mg/dL POC Glucose (mg/dL) 122 H (70-110) mg/dL Calcium 8.1 L (8.7-10.3) mg/dL Magnesium 1.4 L (1.5-2.4) mg/dL Alkaline Phosphatase 166 H (41-126) U/L Total Protein 5.0 L (6.2-8.2) g/dL Albumin 2.9 L (3.8-4.9) g/dL Albumin/Globulin Ratio 1.38 L (1.60-3.17) Ratio 01/07/24 01/07/24 01/08/24 Range/Units 11:49 16:54 07:10 WBC (4.50-10.00) X 10*3/uL RBC (4.10-5.20) X 10*6/uL Hgb (12.0-15.0) g/dL Hct (37.2-46.3) % MCV (80.0-97.0) FL MCHC (32.0-37.0) g/dL RDW (11.5-14.5) % Plt Count (140-440) X 10*3/uL MPV (9.5-12.2) FL Neutrophils # (Manual) (1.80-7.70) X 10*3/uL Lymphocytes # (Manual) (0.90-5.00) X 10*3/uL Monocytes # (Manual) (0.20-1.00) X 10*3/uL Eosinophils # (Manual) (0.04-0.35) X 10*3/uL NRBC/100 WBC Diff (0.00-0.01) X 10*3/uL Elliptocytes Acanthocytes (Spur) Chloride (96-109) mmol/L Carbon Dioxide (21.6-31.8) mmol/L BUN (9.0-27.0) mg/dL Est GFR (CKD-EPI) (>=60) BUN/Creatinine Ratio (12.00-20.00) Ratio Glucose (70-110) mg/dL POC Glucose (mg/dL) 126 H 129 H 137 H (70-110) mg/dL Calcium (8.7-10.3) mg/dL Magnesium (1.5-2.4) mg/dL Alkaline Phosphatase (41-126) U/L Total Protein (6.2-8.2) g/dL Albumin (3.8-4.9) g/dL Albumin/Globulin Ratio (1.60-3.17) Ratio Microbiology - Last 24 Hours (Table) 01/02/24 15:50 Blood Culture - Final Blood 01/04/24 03:30 Stool Culture - Final Stool
[2024-01-09 07:22] LABS: Glucose,Whole Blood 139 mg/dL (70-110)
--- NOTE | 2024-01-09 09:33 | P.PN ---
Subjective Progress Note Date: 01/08/24 Patient has had significant improvement in mentation. Alert and oriented 3, answering questions appropriately, reporting generalized weakness. Denies nausea and vomiting, tolerating diet well. Diarrhea has improved. Hematuria noted yesterday, but felt likely realted to removal and reinsertion of foey catheter. No blood noted in minor today. Minor cath had to be reinserted as pt was having urinary retention. Patient remains afebrile. Continues on IV antibiotic. Objective - Vital Signs Vital signs: Vital Signs Temp 97.8 F 01/08/24 07:06 Pulse 87 01/08/24 08:45 Resp 19 01/08/24 08:45 BP 103/64 01/08/24 07:06 Pulse Ox 99 01/08/24 07:06 FiO2 Intake & Output 01/07/24 01/08/24 01/08/24 18:59 06:59 18:59 Intake Total 1300 Output Total 700 550 Balance 600 -550 Intake: Intake, IV Titration 1300 Amount Cefepime 2 gm In Sodium 100 Chloride 0.9% 100 ml @ 25 mls/hr IVPB Q12HR [facility] Rx #:[id number] Magnesium Sulfate-D5w Pmx 100 1 gm In Dextrose/Water 1 100ml.bag @ 100 mls/hr IVPB Q1H [facility] Rx#: [id number] Sodium Chloride 0.9% 1, 900 000 ml @ 75 mls/hr IV . [id number] [facility] Rx#:[id number] metroNIDAZOLE-NS PMX 500 200 mg In Saline 1 100ml.bag @ 100 mls/hr IVPB Q8HR [facility] Rx#:[id number] Output: Urine 700 550 Other: Voiding Method Indwelling Catheter Indwelling Catheter Indwelling Catheter # Bowel Movements 1 0 - Constitutional General appearance: Present: average body habitus, no acute distress - EENT Eyes: Present: anicteric sclerae, EOMI ENT: Present: hearing grossly normal - Respiratory Details: breathing is even and unlabored - Cardiovascular Details: skin warm and dry - Gastrointestinal General gastrointestinal: Present: soft. Absent: tenderness - Integumentary Integumentary: Present: pale. Absent: cyanotic ( ), jaundiced - Musculoskeletal Musculoskeletal: Present: generalized weakness - Psychiatric Psychiatric: Present: A&O x's 3 - Labs CBC & Chem 7: 01/08/24 14:22 01/08/24 14:22 Labs: Abnormal Lab Results - Last 24 Hours (Table) 01/07/24 01/07/24 01/07/24 Range/Units 07:31 11:40 11:49 Neutrophils # (Manual) 20.51 H (1.80-7.70) X 10*3/uL Lymphocytes # (Manual) 0 L (0.90-5.00) X 10*3/uL Monocytes # (Manual) 1.08 H (0.20-1.00) X 10*3/uL Eosinophils # (Manual) 0 L (0.04-0.35) X 10*3/uL Elliptocytes 2+ A Acanthocytes (Spur) 2+ A POC Glucose (mg/dL) 122 H 126 H (70-110) mg/dL 01/07/24 01/08/24 Range/Units 16:54 07:10 Neutrophils # (Manual) (1.80-7.70) X 10*3/uL Lymphocytes # (Manual) (0.90-5.00) X 10*3/uL Monocytes # (Manual) (0.20-1.00) X 10*3/uL Eosinophils # (Manual) (0.04-0.35) X 10*3/uL Elliptocytes Acanthocytes (Spur) POC Glucose (mg/dL) 129 H 137 H (70-110) mg/dL Microbiology - Last 24 Hours (Table) 01/02/24 15:50 Blood Culture - Final Blood 01/04/24 03:30 Stool Culture - Final Stool Assessment and Plan (1) Weakness Current Visit: Yes Status: Acute Priority: High Code(s): R53.1 - WEAKNESS SNOMED Code(s): 48275981 (2) Diarrhea Current Visit: Yes Status: Acute Priority: High Code(s): R19.7 - DIARRHEA, UNSPECIFIED SNOMED Code(s): 50529419 (3) Squamous cell carcinoma of lung, stage III Current Visit: Yes Status: Acute Priority: High Code(s): C34.90 - MALIGNANT NEOPLASM OF UNSP PART OF UNSP BRONCHUS OR LUNG SNOMED Code(s): 660257326 (4) Febrile neutropenia Current Visit: Yes Status: Acute Priority: High Code(s): D70.9 - NEUTROPENIA, UNSPECIFIED; R50.81 - FEVER PRESENTING WITH CONDITIONS CLASSIFIED ELSEWHERE SNOMED Code(s): 169649804 (5) Altered mental status Current Visit: Yes Status: Acute Priority: High Code(s): R41.82 - ALTERED MENTAL STATUS, UNSPECIFIED SNOMED Code(s): 892702852 Plan: Diarrhea, nausea, weakness, decreased oral intake: Presented with generalized weakness, nausea, decreased oral intake and diarrhea. Denies blood in stool/melena. Denies fever and chills. She reports taking lomotil with minor improvement in symptoms -C. difficile negative. Stool culture negative -Scheduled and prn anti-diarrheals ordered. Diarrhea improving -Continue IV hydration and supportive medications - PT consulted. Referral placed to home health services due to progressing weakness and difficulties managing self care at home Chemo induced panctyopenia: - WBC 16.0, likely overshoot from G-CSF - Remains afebrile. Continues on IV abx. Cultures negative. ID following - Hgb stable, 9.0, plts 115,,000 - Continue to closely monitor counts Altered mental status: Began to experience confusion and per staff was dropping items. -CT brain obtained and was negative for acute intracranial processes EEG shows background slowing suggestive of moderate encephalopathy, otherwise, no focal slowing or epileptiform discharge or seizure. -CT brain w/ contrast ordered to r/o mets, as she cannot have MRI due to AICD. Scan revealed no evidence of metastasis. Negative for acute bleed or mass effec t -Pancultures ordered; Urine culture negative, blood culture negative thus far. Chest x-ray revealing cardiomegaly, and mild left basilar atelectasis versus infiltrate -Patient is showing significant improvement in mentation, A&O x 3, answering questions appropriately. -Patient continues on IV antibiotics. Infectious disease and neurology following Stage IIIA non-small cell lung cancer: -Diagnosed in late September 2023 with recommendation for chemoimmunotherapy -Initially had planned to receive treatment in [place], but difficulty establishing at [facility] -Completed cycle 2 of carboplatin/paclitaxel/pembrolizumab on 12/26/23 -Clinic follow-up scheduled on 01/[address] Dowell. Will need to discuss dose reduction due to treatment intolerance despite aggressive supportive care management. Will also need to consider addition of G-CSF to regimen and schedule clinic IV hydration s/p treatments and continue aggressive supportive care measures. Will further discuss treatment options and goals of care at scheduled f/u Spoke with IM team today, they have been making adjustments to cardiac medications due to soft BPs noted through admission. I spoke with pt and and recommended close f/u with cardiology upon discharge, as they may have to make adjustments to cardiac medications as we proceed through further treatments. is concerned about patients weakness, and does not feel safe bringing her home, which is reasonable. She would benefit from inpt rehab. Clinic f/u and treatments will be on hold until discharged from rehabilitation facility. Pt and family were updated on the POC, and that we will coordinate clinic f/u pending course of rehabilitation
[2024-01-09 11:59] LABS: Glucose,Whole Blood 141 mg/dL (70-110)
[2024-01-09 13:02] VITALS: BP 104/68; RESP 16; TEMP 97.5
[2024-01-09] MEDS: FUROSEMIDE 10 MG/ML 2 ML VIAL IV ONE (13:05)
--- NOTE | 2024-01-09 14:37 | P.DS ---
Providers Date of admission: 12/30/23 13:34 Expected date of discharge: 01/09/24 Attending physician: Senthil Angeles Consults: 12/30/23 13:33 Consult Physician Routine Consulting Provider: Herberth Dowell Consult Reason/Comments: lung cancer on chemo Do you want consulting provider notified?: Yes 01/02/24 11:34 Consult Physician Routine Consulting Provider: Christopher Mayen Consult Reason/Comments: confusion Do you want consulting provider notified?: Yes 01/02/24 16:05 Consult Physician Routine Consulting Provider: Tamika Arechiga Consult Reason/Comments: lung ca Do you want consulting provider notified?: Yes 01/02/24 16:07 Consult Physician Routine Consulting Provider: Marilee Galvez Consult Reason/Comments: neutopenia, fever Do you want consulting provider notified?: Yes Primary care physician: Senthil Angeles [facility] Course: Final diagnosis Weakness and diarrhea secondary to chemotherapy Pancytopenia Squamous cell carcinoma, currently receiving chemotherapy stage III non-small cell lung cancer Urinary retention requiring indwelling Velazquez catheter Blood noted in stool, likely secondary to hemorrhoids Diarrhea, C. difficile ruled out History of COPD, not in exacerbation History of autologous stem cell transplant History of large B-cell lymphoma History of chronic kidney disease History of ischemic cardiomyopathy status post AICD History of coronary artery disease Diabetes mellitus Hypertension, currently hypotensive and will hold blood pressure medications, continue midodrine as needed Hyperlipidemia Generalized weakness with gait dysfunction Hypothyroidism GI prophylaxis DVT prophylaxis Full code Discharge disposition Patient is being discharged in a stable condition with guarded prognosis to [facility] bed for continued PT/OT therapy. Patient will follow-up with Dr. Angeles in the outpatient setting upon discharge. Patient is to continue with oral Ceftin twice daily for 1 week and close outpatient follow-up with oncology as scheduled. Repeat labs in the next 2 to 3 days to monitor CBC, CMP, magnesium. Total time taken is greater than 35 minutes. Hospital course This is a 73-year-old female who was recently admitted with neutropenic fever with weakness and diarrhea with dehydration likely secondary to recent chemotherapy. Patient also noted with pancytopenia and elevated white count initially started on antibiotics. Cultures have remained negative and patient will transition to oral Ceftin per ID recommendations. Oncology following as well as patient is currently receiving chemotherapy for stage III non-small cell lung carcinoma and has 2 chemotherapy sessions remaining. Patient with significant weakness has been evaluated by physical therapy recommending rehab and patient and family are now agreeable. Patient did have some urinary retention with attempted trial void although unsuccessful requiring indwelling Velazquez catheter. Patient will continue with catheter and trial void in the outpatient setting once more mobile. Patient had excessive amounts of diarrhea which is improving and also noted blood in the stool likely secondary to chronic hemorrhoids. Patient to continue with Anusol. Patient having intense mouth pain recommend to continue with cool solution but the combination of nystatin, Benadryl, viscous lidocaine, and Maalox 4 times daily. Patient does continue on nystatin swish and swallow. Patient with not much of an appetite although is improving recommend to continue with appetite stimulant and dose accordingly. Patient does have history of hypertension normally maintained on lisinopril although had acute NEHEMIAS and hypotension on admission recommend to hold lisinopril. Patient also on digoxin and will need discuss further with cardiology as patient is not a good candidate for this medication with all of its side effects and current ongoing comorbidities. Patient has been cleared by consultations for discharge and has been accepted with insurance authorization obtained for [facility]. Please refer to other consultation notes for further HPI. Currently no reports of chest pain, shortness of breath, or palpitations. Patient is afebrile. No reports of nausea or vomiting and patient is tolerating diet. Not much of an appetite although patient is tolerating. Needs encouragement with meals and recommend supplements between meals as well. Patient will be going to [facility] today. Overall guarded prognosis. Patient is aware she is not able to receive oncological care while at [facility]. Patient will follow-up with oncology once discharged from [facility]. Physical exam: Gen: This is a 73-year-old female who is awake, alert and oriented x 3, well- developed, thin built, elderly appearing HEENT: Head is atraumatic, normocephalic. Pupils equal, round. Sclerae is anicteric. NECK: Supple. No JVD. No lymphadenopathy. No thyromegaly. LUNGS: Diminished breath sounds bilaterally with a few scant expiratory wheezes noted. No intercostal retractions. HEART: S1, S2 are regular ABDOMEN: Soft. Bowel sounds are present. No masses. No tenderness. EXTREMITIES: No pedal edema. No calf tenderness. NEUROLOGICAL: Patient is awake, alert and oriented x3. Cranial nerves 2 through 12 are grossly intact. Diffusely weak Please refer to medication reconciliation sheet for a list of medications. The impression and plan of care has been dictated by Carlota Alejandra, Nurse Practitioner as directed. Dr. Quentin MD I have performed a history and examination and MDM of this patient, discussed the same with the dictator, and agree with the dictator's assessment and plan as written ,documented as a scribe. Based on total visit time, I have performed more than 50% of the visit. Patient Condition at Discharge: Stable Plan - Discharge Summary Discharge Rx Participant: No New Discharge Prescriptions: New Ipratropium-Albuterol Nebulize [Duoneb 0.5 mg-3 mg/3 ml Soln] 3 ml INHALATION RT-TID PRN each PRN Reason: Shortness Of Breath Or Wheezing Tamsulosin [Flomax] 0.4 mg PO PC-BRKFST cap Folic Acid 1 mg PO DAILY tab droNABinol [Marinol] 2.5 mg PO AC-BID #4 cap Melatonin 5 mg PO HS PRN tab PRN Reason: Insomnia Ibuprofen [Motrin] 400 mg PO Q6HR PRN tab PRN Reason: Pain Multivitamins, Thera [Multivitamin] 1 tab PO DAILY #30 tablet Nystatin 100,000 Unit/ml Susp [Mycostatin Oral Susp] 3,000,000 unit PO QID ml Midodrine [ProAmatine] 10 mg PO AC-TID PRN tab PRN Reason: Hypotension Lidocaine Viscous 2% [Xylocaine Viscous] 30 ml PO QID ml Hydrocortisone Suppository [Anusol-Hc] 25 mg RECTAL BID suppositor cefUROXime axetiL [Ceftin] 500 mg PO BID 7 Days #14 tab Mag Hydrox/Al Hydrox/Simeth [Maalox] 30 ml PO QID ml Nystatin 100,000 Unit/ml Susp [Mycostatin Oral Susp] 500,000 unit PO QID PRN ml PRN Reason: Mouth Sore Pain Acetaminophen Tab [Tylenol] 650 mg PO Q6HR PRN tab PRN Reason: Fever And/ Or Pain Thiamine [Vitamin B-1] 100 mg PO DAILY #30 tablet Continue Levothyroxine Sodium [Synthroid] 50 mcg PO DAILY Atorvastatin [Lipitor] 40 mg PO DAILY metFORMIN HCL [Glucophage] 500 mg PO BID Metoprolol Succinate (ER) [Toprol XL] 50 mg PO DAILY allopurinoL [Zyloprim] 300 mg PO DAILY Colchicine 0.6 mg PO DAILY Albuterol Inhaler [Ventolin Hfa Inhaler] 1 - 2 puff INHALATION RT-Q6H PRN PRN Reason: Shortness Of Breath Aspirin EC [Ecotrin Low Dose] 81 mg PO DAILY Loperamide [Imodium] 2 mg PO QID PRN #20 cap PRN Reason: Diarrhea Furosemide [Lasix] 40 mg PO DAILY Diphenox-Atrop 2.5-0.025 mg [Lomotil] 2 tab PO BID Omeprazole 20 mg PO DAILY Clopidogrel [Plavix] 75 mg PO DAILY Ondansetron [Zofran] 4 - 8 mg PO Q4HR PRN PRN Reason: Nausea And Vomiting Gabapentin [Neurontin] 300 mg PO BID #4 cap Discontinued Digoxin [Lanoxin] 125 mcg PO DAILY tab lisinopriL [Zestril] 5 mg PO DAILY Discharge Medication List Atorvastatin [Lipitor] 40 mg PO DAILY 01/01/18 [History] Levothyroxine Sodium [Synthroid] 50 mcg PO DAILY 01/01/18 [History] metFORMIN HCL [Glucophage] 500 mg PO BID 05/09/19 [History] Albuterol Inhaler [Ventolin Hfa Inhaler] 1 - 2 puff INHALATION RT-Q6H PRN 11/14/23 [History] Clopidogrel [Plavix] 75 mg PO DAILY 11/14/23 [History] Colchicine 0.6 mg PO DAILY 11/14/23 [History] Metoprolol Succinate (ER) [Toprol XL] 50 mg PO DAILY 11/14/23 [History] Omeprazole 20 mg PO DAILY 11/14/23 [History] allopurinoL [Zyloprim] 300 mg PO DAILY 11/14/23 [History] Aspirin EC [Ecotrin Low Dose] 81 mg PO DAILY 12/02/23 [History] Ondansetron [Zofran] 4 - 8 mg PO Q4HR PRN 12/02/23 [History] Loperamide [Imodium] 2 mg PO QID PRN #20 cap 12/05/23 [Rx] Diphenox-Atrop 2.5-0.025 mg [Lomotil] 2 tab PO BID 12/30/23 [History] Furosemide [Lasix] 40 mg PO DAILY 12/30/23 [History] Acetaminophen Tab [Tylenol] 650 mg PO Q6HR PRN tab 01/09/24 [Rx] Folic Acid 1 mg PO DAILY tab 01/09/24 [Rx] Gabapentin [Neurontin] 300 mg PO BID #4 cap 01/09/24 [Rx] Hydrocortisone Suppository [Anusol-Hc] 25 mg RECTAL BID suppositor 01/09/24 [Rx] Ibuprofen [Motrin] 400 mg PO Q6HR PRN tab 01/09/24 [Rx] Ipratropium-Albuterol Nebulize [Duoneb 0.5 mg-3 mg/3 ml Soln] 3 ml INHALATION RT-TID PRN each 01/09/24 [Rx] Lidocaine Viscous 2% [Xylocaine Viscous] 30 ml PO QID ml 01/09/24 [Rx] Mag Hydrox/Al Hydrox/Simeth [Maalox] 30 ml PO QID ml 01/09/24 [Rx] Melatonin 5 mg PO HS PRN tab 01/09/24 [Rx] Midodrine [ProAmatine] 10 mg PO AC-TID PRN tab 01/09/24 [Rx] Multivitamins, Thera [Multivitamin] 1 tab PO DAILY #30 tablet 01/09/24 [Rx] Nystatin 100,000 Unit/ml Susp [Mycostatin Oral Susp] 3,000,000 unit PO QID ml 01/09/24 [Rx] Nystatin 100,000 Unit/ml Susp [Mycostatin Oral Susp] 500,000 unit PO QID PRN ml 01/09/24 [Rx] Tamsulosin [Flomax] 0.4 mg PO PC-BRKFST cap 01/09/24 [Rx] Thiamine [Vitamin B-1] 100 mg PO DAILY #30 tablet 01/09/24 [Rx] cefUROXime axetiL [Ceftin] 500 mg PO BID 7 Days #14 tab 01/09/24 [Rx] droNABinol [Marinol] 2.5 mg PO AC-BID #4 cap 01/09/24 [Rx] Follow up Appointment(s)/Referral(s): [facility] [NON-STAFF] - 1 Week Senthil Angeles MD [Primary Care Provider] - 1-2 days Ambulatory/Diagnostic Orders: Complete Blood Count w/diff [LAB.AMB] Time Frame: 3 Days, Location: None Selected Patient Instructions/Handouts: Magnesium (By mouth), Hypomagnesemia (DC) Activity/Diet/Wound Care/Special Instructions: Patient is going to [facility] bed Activity as tolerated Continue taking antibiotics for 7 days until finished Follow-up with repeat labs of CBC, CMP, magnesium in 2 to 3 days Continue with cool solution 4 times daily (Benadryl, viscous lidocaine, Maalox combination) Continue nystatin swish and swallow Follow-up with oncology outpatient Follow-up primary care provider on discharge Continue indwelling Velazquez catheter for now for retention until more mobile and trial voiding outpatient. Patient to continue with Flomax until voiding independently Discharge Disposition: TRANSFER TO SNF/ECF
[2024-01-09] MEDS: IPRATROPIUM-ALBUTEROL 3 ML NEB INHALATION STA (15:14)
[2024-01-09] MEDS: IPRATROPIUM-ALBUTEROL 3 ML NEB INHALATION PRN (15:16)
--- NOTE | 2024-01-09 15:38 | P.PN ---
Subjective Progress Note Date: 01/09/24 Principal diagnosis: Reason for follow-up is febrile neutropenia Patient is a 73-year female with a past medical history significant for diabetes mellitus hypertension NE coronary artery disease hypothyroidism presenting to the hospital for evaluation of generalized weakness significant diarrhea patient subsequently spiked a fever prompting this consultation. On today's evaluation that is 01/09/2024,the patient denies any fever or any chills, patient is breathing comfortably on room air, the patient denies chest pain shortness of breath and no significant cough, patient denies abdominal pain, no nausea vomiting or diarrhea, feeling better. No new labs has been repeated today culture has been negative Objective - Vital Signs Vital signs: Vital Signs Temp 97.5 F L 01/09/24 12:00 Pulse 87 01/09/24 15:26 Resp 16 01/09/24 12:00 BP 104/68 01/09/24 12:00 Pulse Ox 97 01/09/24 12:00 FiO2 Intake & Output 01/08/24 01/09/24 01/09/24 18:59 06:59 18:59 Output Total 350 500 0 Balance -350 -500 0 Weight 60.781 kg Output: Urine 350 500 0 Other: Voiding Method Indwelling Catheter Indwelling Catheter Indwelling Catheter # Bowel Movements 1 1 - Exam GENERAL DESCRIPTION: An elderly female lying in bed in no distress RESPIRATORY SYSTEM: Unlabored breathing , decreased breath sounds at bases HEART: S1 S2 regular rate and rhythm , ABDOMEN: Soft , no tenderness EXTREMITIES: No edema feet - Labs CBC & Chem 7: 01/08/24 14:22 01/08/24 14:22 Labs: Abnormal Lab Results - Last 24 Hours (Table) 01/08/24 01/08/24 01/08/24 Range/Units 14:22 14:22 17:01 WBC 16.00 H (4.50-10.00) X 10*3/uL RBC 2.91 L (4.10-5.20) X 10*6/uL Hgb 9.0 L (12.0-15.0) g/dL Hct 29.7 L (37.2-46.3) % MCV 102.1 H (80.0-97.0) FL MCHC 30.3 L (32.0-37.0) g/dL RDW 19.7 H (11.5-14.5) % Plt Count 115 L (140-440) X 10*3/uL MPV 12.3 H (9.5-12.2) FL Immature Gran # 0.62 H (0.00-0.04) X 10*3/uL Neutrophils # 11.96 H (1.80-7.70) X 10*3/uL Monocytes # 1.17 H (0.20-1.00) X 10*3/uL Eosinophils # 0 L (0.04-0.35) X 10*3/uL Basophils # 0.14 H (0.00-0.10) X 10*3/uL NRBC/100 WBC Diff 0.05 H (0.00-0.01) X 10*3/uL Elliptocytes 2+ A Chloride 111 H (96-109) mmol/L Carbon Dioxide 14.3 L (21.6-31.8) mmol/L BUN 29.5 H (9.0-27.0) mg/dL Est GFR (CKD-EPI) 53 L (>=60) BUN/Creatinine Ratio 26.82 H (12.00-20.00) Ratio Glucose 152 H (70-110) mg/dL POC Glucose (mg/dL) 146 H (70-110) mg/dL Calcium 8.3 L (8.7-10.3) mg/dL Alkaline Phosphatase 171 H (41-126) U/L Total Protein 5.3 L (6.2-8.2) g/dL Albumin 3.0 L (3.8-4.9) g/dL Albumin/Globulin Ratio 1.30 L (1.60-3.17) Ratio 01/08/24 01/09/24 01/09/24 Range/Units 20:49 07:21 11:57 WBC (4.50-10.00) X 10*3/uL RBC (4.10-5.20) X 10*6/uL Hgb (12.0-15.0) g/dL Hct (37.2-46.3) % MCV (80.0-97.0) FL MCHC (32.0-37.0) g/dL RDW (11.5-14.5) % Plt Count (140-440) X 10*3/uL MPV (9.5-12.2) FL Immature Gran # (0.00-0.04) X 10*3/uL Neutrophils # (1.80-7.70) X 10*3/uL Monocytes # (0.20-1.00) X 10*3/uL Eosinophils # (0.04-0.35) X 10*3/uL Basophils # (0.00-0.10) X 10*3/uL NRBC/100 WBC Diff (0.00-0.01) X 10*3/uL Elliptocytes Chloride (96-109) mmol/L Carbon Dioxide (21.6-31.8) mmol/L BUN (9.0-27.0) mg/dL Est GFR (CKD-EPI) (>=60) BUN/Creatinine Ratio (12.00-20.00) Ratio Glucose (70-110) mg/dL POC Glucose (mg/dL) 135 H 139 H 141 H (70-110) mg/dL Calcium (8.7-10.3) mg/dL Alkaline Phosphatase (41-126) U/L Total Protein (6.2-8.2) g/dL Albumin (3.8-4.9) g/dL Albumin/Globulin Ratio (1.60-3.17) Ratio Microbiology - Last 24 Hours (Table) 01/03/24 08:10 Blood Culture - Final Blood Assessment and Plan (1) Febrile neutropenia Current Visit: Yes Status: Acute Priority: High Code(s): D70.9 - NEUTROPENIA, UNSPECIFIED; R50.81 - FEVER PRESENTING WITH CONDITIONS CLASSIFIED ELSEWHERE SNOMED Code(s): 581022782 (2) Diarrhea Current Visit: Yes Status: Acute Priority: High Code(s): R19.7 - DIARRHEA, UNSPECIFIED SNOMED Code(s): 60044396 Plan: 1patient with febrile neutropenia in this patient who did have a fever of 101 F patient did have a white count of 0.77 neutrophil count of only 0.01 patient initially presented to hospital with significant diarrhea stool for C. difficile has been negative chest x-ray left lower lobe infiltrate however do not have significant respiratory symptoms source underlying pneumonia versus abdominal 2-patient did have resolution of her fever and white count has normalized/elevated more likely meds related culture has been negative so far 3-patient to c finish therapy short course of oral Ceftin on discharge Family at the bedside question concern answered Dictation was produced using [employer] dictation software. please excuse any grammatical, word or spelling errors. Time with Patient: Less than 30
[2024-01-09 15:42] VITALS: PULSE 87
== END 2024-01-09 16:30 | DRG 393 ==
LOC: EC 11:10 → 5NMEDONC 13:33 → OBSVTOIN 13:34 → 5NMEDONC 14:03
PROVIDERS: ADMIT Internal Medicine; ATTEND Internal Medicine
PROC: 05HB33Z Insertion of Infusion Device into Right Basilic Vein, Percutaneous Approach (ICD-10-PCS; principal; 2024-01-06 13:35)
DX: K52.1 Toxic gastroenteritis and colitis (principal); G93.41 Metabolic encephalopathy; C34.90 Malignant neoplasm of unspecified part of unspecified bronchus or lung; E87.1 Hypo-osmolality and hyponatremia; Z94.84 Stem cells transplant status; D61.818 Other pancytopenia; B37.0 Candidal stomatitis; N17.9 Acute kidney failure, unspecified; Z20.822 Contact with and (suspected) exposure to COVID-19; D70.9 Neutropenia, unspecified; T45.1X5A Adverse effect of antineoplastic and immunosuppressive drugs, initial encounter; X58.XXXA Exposure to other specified factors, initial encounter; E83.42 Hypomagnesemia; E87.5 Hyperkalemia; N18.9 Chronic kidney disease, unspecified; E11.22 Type 2 diabetes mellitus with diabetic chronic kidney disease; E11.649 Type 2 diabetes mellitus with hypoglycemia without coma; Z95.810 Presence of automatic (implantable) cardiac defibrillator; I25.5 Ischemic cardiomyopathy; I25.10 Atherosclerotic heart disease of native coronary artery without angina pectoris; Z85.72 Personal history of non-Hodgkin lymphomas; I12.9 Hypertensive chronic kidney disease with stage 1 through stage 4 chronic kidney disease, or unspecified chronic kidney disease; J44.89 Other specified chronic obstructive pulmonary disease; E07.9 Disorder of thyroid, unspecified; E03.9 Hypothyroidism, unspecified; K21.9 Gastro-esophageal reflux disease without esophagitis; Z90.11 Acquired absence of right breast and nipple; R33.8 Other retention of urine; R27.0 Ataxia, unspecified; R50.81 Fever presenting with conditions classified elsewhere; E78.5 Hyperlipidemia, unspecified; Z79.890 Hormone replacement therapy; I08.0 Rheumatic disorders of both mitral and aortic valves; I25.2 Old myocardial infarction; I89.0 Lymphedema, not elsewhere classified; K64.9 Unspecified hemorrhoids; I95.9 Hypotension, unspecified; R53.0 Neoplastic (malignant) related fatigue; Z79.02 Long term (current) use of antithrombotics/antiplatelets; Z79.82 Long term (current) use of aspirin; Z79.84 Long term (current) use of oral hypoglycemic drugs; Z79.899 Other long term (current) drug therapy; Z85.118 Personal history of other malignant neoplasm of bronchus and lung; Z86.16 Personal history of COVID-19; Z85.3 Personal history of malignant neoplasm of breast; Z90.13 Acquired absence of bilateral breasts and nipples; Z90.710 Acquired absence of both cervix and uterus; Z95.1 Presence of aortocoronary bypass graft; Z88.1 Allergy status to other antibiotic agents; Z88.5 Allergy status to narcotic agent; Z88.6 Allergy status to analgesic agent
CPT/HCPCS: 36410; 36415; 70450; 70470; 71045; 71046; 72125; 76937; 80053; 80162; 81001; 81003; 82533; 82607; 82746; 83605; 83735; 84100; 84132; 84439; 84443; 84481; 85025; 85610; 85730; 87040; 87045; 87046; 87086; 87324; 87636; 93005; 93306; 94640; 95816; 96361; 96365; 96375; 99285